=== PATIENT | female | born 1955 | race Caucasian/White ===

== ENCOUNTER 2017-06-27 08:39 | Inpatient (IN) ==
[2017-06-27 09:15] LABS: Bilirubin,Urine Negative (Negative); Blood,Urine Trace (Negative); Clarity,Urine Clear (Clear); Color,Urine Yellow (Yellow); Glucose,Urine (UA) Normal (Normal); Ketones,Urine Negative (Negative); Leukocyte Esterase,Urine Negative (Negative); Nitrite,Urine Negative (Negative); PH,Urine 6.5 pH Units (5.0-8.0); Protein,Urine Negative (Neg-Trace); Specific Gravity,Urine 1.009 (1.010-1.025); Urobilinogen,Urine Normal (Normal)
[2017-06-27 09:17] LABS: Bacteria,Urine None Seen per hpf (None-Few); Hyaline Casts,Urine None Seen per lpf (None-Few); Squamous Epithelial Cell,Urine Many per lpf (None-Few); WBC,Urine 0-3 per hpf (0-3)
[2017-06-27] MEDS ORDERED: *HR* Morphine 2 MG/ML SYRINGE IVP ONE (09:17)
[2017-06-27] MEDS ORDERED: 0.9 % Sodium Chloride 1,000 ML IVC ONE (09:17)
[2017-06-27] MEDS ORDERED: Ondansetron 4 MG/2 ML VIAL IVP ONE (09:17)
[2017-06-27 09:20] LABS: Red Cell Distribution Width 13.4 % (11.5-14.5)
[2017-06-27 09:22] LABS: Basophils # 0.1 K/mcL (0.0-0.2); Eosinophils # 0.1 K/mcL (0.0-0.6); Eosinophils % 1.5 %; Hematocrit 46.1 % (35.3-44.9); Hemoglobin 15.4 g/dL (11.5-15.4); Immature Granulocytes % 0.3 % (0-4); Immature Platelets 8.4 % (1.1-6.1); Lymphocytes % 25.7 %; Mean Corpuscular HGB Conc 33.4 g/dL (31.6-35.5); Mean Corpuscular Hemoglobin 31.8 pg (28.0-33.3); Mean Corpuscular Volume 95.2 fL (83.0-100.0); Mean Platelet Volume 11.5 fL (9.4-12.4); Monocytes # 0.5 K/mcL (0.0-1.3); Monocytes % 8.1 %; Neutrophils # 3.8 K/mcL (1.6-8.9); Red Blood Count 4.84 M/mcL (3.82-4.97); Segmented Neutrophils % 63.4 %
[2017-06-27 09:26] LABS: Lymphocytes # 1.5 K/mcL (0.6-4.6); Platelet Count 83 K/mcL (140-400)
--- NOTE | 2017-06-27 09:32 | Emergency Department Note ---
Disposition Clinical Impression: Acute diverticulitis, Transaminitis Cholelithiasis Qualifiers: Cholelithiasis location: gallbladder Cholecystitis presence: without cholecystitis Biliary obstruction: without biliary obstruction Qualified Code(s) : K80.20 - Calculus of gallbladder without cholecystitis without obstruction Disposition: Admitted As Inpatient Condition: Good Abdominal Pain HPI - General Chief Complaint: ED Abdominal Pain Stated Complaint: ABD Pain Time Seen by Provider: 06/27/17 09:04 Source: patient Mode of arrival: private vehicle Limitations: no limitations Nursing Notes Reviewed: Yes Vital Signs Reviewed: Yes - History of Present Illness HPI Narrative: 62-year-old female reported history of prior diverticulitis who presents to the ER with a chief complaint of abdominal pain. Patient states she has had crampy abdominal pain for 2 weeks. Reports a prior history of this in the past. Reports nausea at home without vomiting or diarrhea. She does report a change in stool pattern with more mucus. States she did notice a little amount of blood this morning but was unable to tell for if it was light or dark. She has had a car history of hysterectomy without any other abdominal surgeries. No other complaints. Pt Subjective Complaint: abdominal pain Onset (ago): week(s) Consistency: constant Location: diffuse Pain Severity: severe Pain Scale: 10 Quality: cramping Radiation: none Migration to: no migration Improves with: nothing Worsens with: nothing Context: history of similar episodes Associated symptoms: Reports: nausea. Denies: vomiting, diarrhea, fever, dysuria, hematuria Treatments prior to arrival: none - Related Data Home Medications Medication Instructions Recorded Confirmed Diltiazem CD (24hr) [Cardizem CD] 180 mg PO DAILY 06/27/17 06/27/17 Famotidine [Pepcid] 40 mg PO DAILY 06/27/17 06/27/17 Allergies Allergy/AdvReac Type Severity Reaction Status Date / Time niacin Allergy Flushing Verified 06/27/17 09:25 Penicillins [PCN] Allergy Rash Verified 06/27/17 09:25 duracef Allergy See Uncoded 06/27/17 09:25 Comments All systems ED: reviewed and negative except as stated. Constitutional: Denies: fever Gastrointestinal: Reports: abdominal pain, nausea. Denies: vomiting, diarrhea Genitourinary: Denies: dysuria, hematuria Abdominal Pain PMH - Past Medical History Medical history: Reports: no medical history, hyperlipidemia, hypertension Female Surgical History: Reports: other Psychiatric history: Reports: depression - Social History Smoking status: Current every day smoker Alcohol use: Reports: none Drug use: Reports: none Physical Exam - General Limitations: no limitations General appearance: alert, in no apparent distress - Head Head exam: atraumatic, normocephalic - Eye Eye exam: Present: normal appearance - ENT ENT exam: normal exam - Neck Neck exam: Present: normal inspection - Chest Chest inspection: Present: normal inspection, symmetric chest wall rise - Respiratory Respiratory exam: Present: normal lung sounds bilaterally - Cardiovascular Cardiovascular exam: Present: regular rate, normal rhythm, normal heart sounds - Abdominal Exam Abdominal exam: Present: soft, tenderness (Moderate diffuse tenderness to palpation). Absent: distention, rigidity - Extremities Exam Extremities exam: Present: normal inspection, full ROM - Expanded Upper Extremity Exam Shoulder exam: Present: normal inspection, full ROM Arm exam: Present: normal inspection, full ROM Elbow exam: Present: normal inspection, full ROM Forearm/Wrist exam: Present: normal inspection, full ROM Hand exam: Present: normal inspection, full ROM - Expanded Lower Extremity Exam Hip/Pelvis exam: Present: normal inspection, full ROM Upper leg exam: Present: normal inspection, full ROM Knee exam: Present: normal inspection, full ROM Lower leg exam: Present: normal inspection, full ROM Ankle exam: Present: normal inspection, full ROM Foot/toe exam: Present: normal inspection, full ROM - Skin Skin exam: Present: warm Course Course Narrative: Patient seen and examined. We will obtain a CT scan of the abdomen and pelvis as well as labs and urinalysis. Patient given IV fluids, morphine and Zofran. - Reevaluation(s) Reevaluation #1: Discussed results of CT scan with the patient as well as family present. There is concern for her gallbladder. We will obtain a gallbladder ultrasound. Reevaluation #2: Discussed findings on ultrasound with the patient. Agreeable with staying in the hospital. - Consultations Consultation #1: I spoke with the on-call general surgeon Dr. Frazier. Discussed the patient's history, exam, imaging and labs. Agreeable to the patient consultation. Vital Signs Temperature 97.5 F L 06/27/17 08:40 Pulse Rate 79 06/27/17 08:40 Respiratory Rate 18 06/27/17 08:40 Blood Pressure 171/101 06/27/17 08:40 O2 Sat by Pulse Oximetry 99 06/27/17 08:40 Temperature 97.5 F L 06/27/17 08:40 Pulse Rate 56 06/27/17 13:00 Respiratory Rate 20 06/27/17 13:00 Blood Pressure 142/75 06/27/17 13:00 O2 Sat by Pulse Oximetry 97 06/27/17 13:00 Oxygen Delivery Oxygen Delivery Room Air Abdominal Pain - MDM Narrative Medical decision making narrative: This documentation is done with the assistance of Dragon dictation. There may be inaccuracies in wax ball molder or spelling and typographical errors. I examined this patient and my medical decision-making was reviewed with the Resident Physician. I agree with the documented findings, disposition and treatment plan as described except to the extent set forth below. I saw this patient with Dr. Decker and I agree with his evaluation and management plan, supervise care the patient's stay. Patient presents today with abdominal pain across the upper portion abdomen she thinks it could be her colitis she has had varying types of bowel movements and a little bit nauseous. She said food makes it worse. She is pretty poor historian. She has nonsurgical exam on here. Relatively make her more comfortable then reassess. She is in agreement with plan. 1040 hrs.: Patient's LFTs are elevated. She says she has a history of hepatitis C the last 2 times she spent her LFTs of an elevated at a level was higher than they are today. Waiting on CAT scan and then reassessment. Abdomen/Pelvis CT 06/27/17 09:16 IMPRESSION: 1. Uncomplicated acute diverticulitis of the distal descending/proximal sigmoid colon. 2. Nodular contour of the liver, suggestive of cirrhosis. 3. Cholelithiasis with diffuse gallbladder wall thickening, possibly related to underlying liver disease. 4. Status post hysterectomy. 5. Normal appendix. D/ / 06/27/2017 10:33:16 Aimee Norman MD / [facility] Inter[facility] Provider: Aimee Norman MD Abdomen/Pelvis CT 06/27/17 09:16 IMPRESSION: 1. Uncomplicated acute diverticulitis of the distal descending/proximal sigmoid colon. 2. Nodular contour of the liver, suggestive of cirrhosis. 3. Cholelithiasis with diffuse gallbladder wall thickening, possibly related to underlying liver disease. 4. Status post hysterectomy. 5. Normal appendix. D/ / 06/27/2017 10:33:16 Aimee Norman MD / [facility] Interpreting Provider: Aimee Norman MD Gallbladder Ultrasound 06/27/17 11:12 IMPRESSION: Cholelithiasis, gallbladder wall thickening, suggestive of mild pericholecystic fluid. Given negative sonographic Dougherty's sign (which is only of diagnostic utility under the presumption that the patient has not received recent pain medications), these findings are equivocal for acute cholecystitis. Borderline enlarged common bile duct caliber, recommend correlation with LFTs. If there is persistent clinical concern for obstructive biliary pathology, MRCP can be considered for further evaluation, potentially on a nonemergent basis. D/ / 06/27/2017 12:32:14 Aguilar Falk MD / [facility] Interpreting Provider: Aguilar Falk MD 1244 hrs.: Patient's also got evidence of cholecystitis or with her diverticulitis. Reporting her on antibiotics. Admit her to medicine with surgery consult. - Lab Data Lab results reviewed: Yes I reviewed the patient's lab results. Result diagrams: 06/27/17 09:12 06/27/17 09:12 Lab Results 06/27/17 06/27/17 06/27/17 Range/Units 08:41 09:12 09:12 WBC 6.0 (4.3-11.1) K/mcL RBC 4.84 (3.82-4.97) M/mcL Hgb 15.4 (11.5-15.4) g/dL Hct 46.1 H (35.3-44.9) % MCV 95.2 (83.0-100.0) fL MCH 31.8 (28.0-33.3) pg MCHC 33.4 (31.6-35.5) g/dL RDW 13.4 (11.5-14.5) % Plt Count 83 L (140-400) K/mcL MPV 11.5 (9.4-12.4) fL Immature Gran % 0.3 (0-4) % Seg Neutrophils % 63.4 % Lymphocytes % 25.7 % Monocytes % 8.1 % Eosinophils % 1.5 % Basophils % 1.0 % Neutrophils # 3.8 (1.6-8.9) K/mcL Lymphocytes # 1.5 (0.6-4.6) K/mcL Monocytes # 0.5 (0.0-1.3) K/mcL Eosinophils # 0.1 (0.0-0.6) K/mcL Basophils # 0.1 (0.0-0.2) K/mcL Immature Plt Fraction 8.4 H (1.1-6.1) % Sodium 137 (136-145) mEq/L Potassium 3.6 (3.5-5.1) mEq/L Chloride 106 (98-107) mEq/L Carbon Dioxide 28 (23-29) mEq/L BUN 8 (8-23) mg/dL Creatinine 0.79 (0.60-1.20) mg/dL Est GFR ( Amer) > 60 (> 60) Est GFR (Non-Af Amer) > 60 (> 60) BUN/Creatinine Ratio 10 (6-26) Glucose 93 (70-105) mg/dL Calculated Osmolality 282 (280-300) Calcium 9.6 (8.6-10.3) mg/dL Total Bilirubin 1.2 H (0.3-1.0) mg/dL Direct Bilirubin 0.4 H (0.0-0.2) mg/dL Indirect Bilirubin 0.8 (0.0-1.2) mg/dL AST 240 H (13-39) Units/L ALT 240 H (7-52) Units/L Alkaline Phosphatase 201 H (34-104) Units/L Serum Total Protein 7.6 (6.4-8.9) g/dL Albumin 3.6 (3.5-5.7) g/dL Globulin 4.0 H (2.4-3.5) g/dL Albumin/Globulin Ratio 0.9 L (1.1-2.2) Lipase 23 (11-82) Units/L Urine Color Yellow (Yellow) Urine Clarity Clear (Clear) Urine pH 6.5 (5.0-8.0) pH Units Ur Specific [place] 1.009 L (1.010-1.025) Urine Protein Negative (Neg-Trace) mg/dL Urine Glucose (UA) Normal (Normal) mg/dL Urine Ketones Negative (Negative) mg/dL Urine Blood Trace H (Negative) Urine Nitrite Negative (Negative) Urine Bilirubin Negative (Negative) Urine Urobilinogen Normal (Normal) mg/dL Ur Leukocyte Esterase Negative (Negative) Urine Microscopic RBC 3-5 H (0-3) per hpf Urine Microscopic WBC 0-3 (0-3) per hpf Ur Squamous Epith Cells Many H (None-Few) per lpf Urine Bacteria None Seen (None-Few) per hpf Hyaline Casts None Seen (None-Few) per lpf Ur Culture Indicated? NO (NO) - Radiology Data Radiology results reviewed: Yes I reviewed the patient's radiology results. Abdomen/Pelvis CT 06/27/17 09:16 IMPRESSION: 1. Uncomplicated acute diverticulitis of the distal descending/proximal sigmoid colon. 2. Nodular contour of the liver, suggestive of cirrhosis. 3. Cholelithiasis with diffuse gallbladder wall thickening, possibly related to underlying liver disease. 4. Status post hysterectomy. 5. Normal appendix. D/ / 06/27/2017 10:33:16 Aimee Norman MD / [facility] Interpreting Provider: Aimee Norman MD Gallbladder Ultrasound 06/27/17 11:12 IMPRESSION: Cholelithiasis, gallbladder wall thickening, suggestive of mild pericholecystic fluid. Given negative sonographic Dougherty's sign (which is only of diagnostic utility under the presumption that the patient has not received recent pain medications), these findings are equivocal for acute cholecystitis. Borderline enlarged common bile duct caliber, recommend correlation with LFTs. If there is persistent clinical concern for obstructive biliary pathology, MRCP can be considered for further evaluation, potentially on a nonemergent basis. D/ / 06/27/2017 12:32:14 Aguilar Falk MD / [facility] Interpreting Provider: Aguilar Falk MD S[facility]A.R. - [facility] Situation: Demographics, MOA Background: Presenting Complaint, Relevant PMH, Meds, & Allergies Assessment: Course and respsone to treatment, Patient/Family Expectation, Pertinant Lab Results Recommendation: Barrier(s) to disposition, Recommendation based on pending studies, treatments, or consults S.B.A.R. Report Given to: Dr. Love
[2017-06-27 09:35] LABS: Alanine Aminotransferase 240 Units/L (7-52); Albumin 3.6 g/dL (3.5-5.7); Albumin/Globulin Ratio 0.9 (1.1-2.2); Alkaline Phosphatase 201 Units/L (34-104); Aspartate Amino Transferase 240 Units/L (13-39); BUN/Creatinine Ratio 10 (6-26); Bilirubin,Direct 0.4 mg/dL (0.0-0.2); Bilirubin,Indirect 0.8 mg/dL (0.0-1.2); Bilirubin,Total 1.2 mg/dL (0.3-1.0); Blood Urea Nitrogen 8 mg/dL (8-23); Calcium 9.6 mg/dL (8.6-10.3); Carbon Dioxide 28 mEq/L (23-29); Chloride 106 mEq/L (98-107); Glucose 93 mg/dL (70-105); Lipase 23 Units/L (11-82); Osmolality,Calculated 282 (280-300); Potassium 3.6 mEq/L (3.5-5.1); Sodium 137 mEq/L (136-145); Total Protein 7.6 g/dL (6.4-8.9); eGFR For African Americans > 60 (> 60); eGFR For Non-African Americans > 60 (> 60)
[2017-06-27] MEDS ORDERED: MetroNIDAZOLE 500 MG/100 ML 500 MG/100 ML BAG IVPB ONE (11:55)
[2017-06-27] MEDS ORDERED: Levofloxacin 750 MG/150 ML 750 MG/150 ML BAG IVPB ONE (11:55)
--- NOTE | 2017-06-27 13:38 | General Surgery Consult Note ---
<Juliette Burkett - Last Filed: 06/27/17 16:28> Date of Encounter: 06/27/17 Time of Encounter: 13:36 Assessment and Plan (1) Cholelithiasis Current Visit: Yes Status: Acute 62 y F with diverticulitis presenting with acute epigastric pain, consistent with typical biliary symptoms and gallstones identified on imaging studies, but equivocal transabdominal U/S findings for complications. Pt hemodynamically stable, afebrile -Reviewed Transabdominal U/S and CT report, with Elevation in AST/ALT, will plan for MRCP to r/o obstructive biliary pathology -Focus management acute pain control. -Bowel rest -Will review plan with Dr. Frazier Qualifiers: Cholelithiasis location: gallbladder Cholecystitis presence: without cholecystitis Biliary obstruction: without biliary obstruction Qualified Code(s): K80.20 - Calculus of gallbladder without cholecystitis without obstruction (2) Diverticulitis Current Visit: Yes Status: Acute Abdomen CT demonstrated Uncomplicated acute diverticulitis of the distal descending/proximal sigmoid colon, with diverticulosis seen elsewhere. CT possibly concerning for Hinchey Class I. Pt considered immunocompromised 2/2 to chronic hepatitis C Combination regiment of metronidazole 500 mg IV q 8 hours with ciprofloxacin 400 mg IV every 12 hours or Continue bowel rest (3) Transaminitis Current Visit: Yes Status: Chronic 03/2017 AST/ALT 330: 400. 06/27/17 AST/ALT: 240/240. Continue to monitor and correlate with clinical status and may be 2/2 to chronic hepatitis C status. Elevation seen in chronic hepatitis C virus infection known to be associated with wide variability in AST/ALT levels. Elevation also possibly concerning for biliary obstruction, MRCP pending to r/o (4) Hepatitis C Current Visit: Yes Status: Chronic Chronic Hep C, Chronic inactive Hep B. Follows with GI Dr. Gavin as outpatient. Cirrhosis seen on imaging, pt endorses alcohol use as well. Qualifiers: Viral hepatitis chronicity: chronic Hepatic coma status: without hepatic coma Qualified Code(s): B18.2 - Chronic viral hepatitis C (5) Tobacco abuse Current Visit: Yes Status: Acute Management per medical team (6) DVT prophylaxis Current Visit: Yes Status: Acute Management per medical team. History of Present Illness Consult date: 06/27/17 Reason for consult: abdominal pain Requesting physician: Peter Brigido History of present illness: 62-year-old female reported history of prior diverticulitis and past surgical history of hysterectomy, presents to the ER with a chief complaint of crampy abdominal pain x 2 weeks. Location: Epigastric region. Qualification: Rates pain as 8/10. Timing of pain: Post-prandial pain. Associated symptoms: Nausea. No vomiting. No diarrhea. Endorses a change in stool pattern, with increased mucus noted. Endorses bloody bowel movements yesterday, which resolves this morning. No chest pain. No bloating.No diaphoresis. Past Med Surg Social Fam HX - Past Medical History Attestation: Yes The following information was validated with the patient. Source: old records reviewed (Hx of Diverticulitis, Depression, hx of CVA (2003) , HTN, CVA, DDD, Hx of breast nodules, RLS, COPD, GERD, Chronic back pain, Hyperlipidemia, HTN (hypertension), History of CVA (cerebrovascular accident), Cardiac carh in 2016 normal coronaries, Chronic Active Hepatitis C 05/2017, Chronic INACTIVE Hepatitis B) Medical history: hyperlipidemia, hypertension Psychiatric history: depression - Past Surgical History Surgical History: other ( total hysterectomy 1978, back surgery 2003, bunion surgery 2003, EGD/colonoscopy 2010, dental surgery (all teeth removed) [id number] , left heart catheterization , right eye cataract surgery 2010, left eye cataract surgery 2011) - Social History Smoking Status: Current every day smoker Smokeless Tobacco Status: No Alcohol use: recent (endorses 1-3 beers/day) Drug use: none - Family History Father Hx Family Cardiac Disorders: Yes - Additional Family History Additional family history: History per outpatient medical chart. Father: , RA, heart disease, lung disease, alcoholism, diagnosed with Heart Disease. Mother: , brain aneurysm, HTN, alcohol abuse, diagnosed with Hypertension, Stroke. Brother(s): alive. Daughter(s): depression, PTSD Medications and Allergies Diltiazem CD (24hr) [Cardizem CD] 180 mg PO DAILY 06/27/17 [History] Famotidine [Pepcid] 40 mg PO DAILY 06/27/17 [History] 3 Allergy/AdvReac Type Severity Reaction Status Date / Time niacin Allergy Flushing Verified 06/27/17 09:25 Penicillins [PCN] Allergy Rash Verified 01/15/18 09:25 duracef Allergy See Uncoded 06/27/17 09:25 Comments Review of Systems All systems PM: A review of systems was performed and is negative for pertinent findings except as documented above in the HPI. General Surgery Exam Initial Vital Signs Temp Pulse Resp BP Pulse Ox 97.5 F L 79 18 171/101 99 06/27/17 08:40 06/27/17 08:40 06/27/17 08:40 06/27/17 08:40 06/27/17 08:40 - General physical appearance no distress, cachectic - Eyes normal ocular movement. negative: icteric - Respiratory normal expansion, normal respiratory effort, clear to auscultation - Cardiovascular Cardiovascular exam: Present: RRR, murmurs - Abdomen Abdomen general surgery: Present: bowel sounds present, soft, non tender (No abdominal tenderness on palpation in all quadrants, while patient distracted in conversation. Negative Dougherty's sign.). Absent: distended, rebound, rigid - Integumentary Integumentary general surgery: Present: warm and dry, no abnormal pigmentation - Neurologic Present: normal coordination, other (Absent: Asterixis). Absent: combative, confused - Musculoskeletal Present: other (No LE edema. ) - Psychiatric Psychiatric general surgery: Present: oriented to person, oriented to place, speech is normal, other Exam Initial Vital Signs Temp Pulse Resp BP Pulse Ox 97.5 F L 79 18 171/101 99 06/27/17 08:40 06/27/17 08:40 06/27/17 08:40 06/27/17 08:40 06/27/17 08:40 Results - Labs 06/27/17 09:12 06/27/17 09:12 Abnormal lab results Hct 46.1 % (35.3-44.9) H 06/27/17 09:12 Plt Count 83 K/mcL (140-400) L 06/27/17 09:12 Immature Plt Fraction 8.4 % (1.1-6.1) H 06/27/17 09:12 Total Bilirubin 1.2 mg/dL (0.3-1.0) H 06/27/17 09:12 Direct Bilirubin 0.4 mg/dL (0.0-0.2) H 06/27/17 09:12 AST 240 Units/L (13-39) H 06/27/17 09:12 ALT 240 Units/L (7-52) H 06/27/17 09:12 Alkaline Phosphatase 201 Units/L (34-104) H 06/27/17 09:12 Globulin 4.0 g/dL (2.4-3.5) H 06/27/17 09:12 Albumin/Globulin Ratio 0.9 (1.1-2.2) L 06/27/17 09:12 Ur Specific [place] 1.009 (1.010-1.025) L 06/27/17 08:41 Urine Blood Trace (Negative) H 06/27/17 08:41 Urine Microscopic RBC 3-5 per hpf (0-3) H 06/27/17 08:41 Ur Squamous Epith Cells Many per lpf (None-Few) H 06/27/17 08:41 Diabetes panel 06/27/17 Range/Units 09:12 Sodium 137 (136-145) mEq/L Potassium 3.6 (3.5-5.1) mEq/L Chloride 106 (98-107) mEq/L Carbon Dioxide 28 (23-29) mEq/L BUN 8 (8-23) mg/dL Creatinine 0.79 (0.60-1.20) mg/dL Glucose 93 (70-105) mg/dL Calcium 9.6 (8.6-10.3) mg/dL AST 240 H (13-39) Units/L ALT 240 H (7-52) Units/L Alkaline Phosphatase 201 H (34-104) Units/L Albumin 3.6 (3.5-5.7) g/dL Calcium panel 06/27/17 Range/Units 09:12 Calcium 9.6 (8.6-10.3) mg/dL Albumin 3.6 (3.5-5.7) g/dL Pituitary panel 06/27/17 Range/Units 09:12 Sodium 137 (136-145) mEq/L Potassium 3.6 (3.5-5.1) mEq/L Chloride 106 (98-107) mEq/L Carbon Dioxide 28 (23-29) mEq/L BUN 8 (8-23) mg/dL Creatinine 0.79 (0.60-1.20) mg/dL Glucose 93 (70-105) mg/dL Calcium 9.6 (8.6-10.3) mg/dL Adrenal panel 06/27/17 Range/Units 09:12 Sodium 137 (136-145) mEq/L Potassium 3.6 (3.5-5.1) mEq/L Chloride 106 (98-107) mEq/L Carbon Dioxide 28 (23-29) mEq/L BUN 8 (8-23) mg/dL Creatinine 0.79 (0.60-1.20) mg/dL Glucose 93 (70-105) mg/dL Calcium 9.6 (8.6-10.3) mg/dL Total Bilirubin 1.2 H (0.3-1.0) mg/dL AST 240 H (13-39) Units/L ALT 240 H (7-52) Units/L Alkaline Phosphatase 201 H (34-104) Units/L Albumin 3.6 (3.5-5.7) g/dL All other labs normal. - Imaging CT scan - abdomen: report reviewed (CT OF THE ABDOMEN AND PELVIS WITHOUT CONTRAST 06/27/2017 10:12 am TECHNIQUE: CT of the abdomen and pelvis was performed without the administration of intravenous contrast. Multiplanar reformatted images are provided for review. Dose modulation, iterative reconstruction, and/or weight based adjustment of the mA/kV was utilized to reduce the radiation dose to as low as reasonably achievable. COMPARISON: None. HISTORY: ORDERING SYSTEM PROVIDED HISTORY: generalized abd pain, hx of diverticulitis FINDINGS: Lower Chest: Basilar atelectasis. Organs: Cholelithiasis without CT evidence of acute cholecystitis. Wall thickening of the gallbladder is identified, nonspecific. Subtle nodular contour of the liver is identified. No obvious mass lesion on noncontrast imaging. The spleen is at the upper limits of normal in size, measuring 12.4 cm in craniocaudal dimension. The pancreas, adrenal glands, and kidneys demonstrate no acute abnormality. A 13 mm left renal cyst is identified. No hydronephrosis or nephrolithiasis. GI/Bowel: The stomach and small bowel are normal in course and caliber without evidence of wall thickening or obstruction. Normal appendix. Focal area of wall thickening with adjacent inflammatory changes is identified in the distal descending/ proximal sigmoid colon. Severe diverticulosis is identified elsewhere. Pelvis: Normal bladder. Status post hysterectomy. No adnexal masses. Peritoneum/Retroperitoneum: Inflammatory changes with trace free fluid identified in the left hemiabdomen and pelvis related to diverticulitis of the distal descending colon. No free air. No pathologic lymphadenopathy. The aorta and its branches are normal in course and caliber with mild atherosclerosis. Bones/Soft Tissues: No acute or aggressive osseous lesion. CT/CT abd pelvis wo no iv no oral IMPRESSION: 1. Uncomplicated acute diverticulitis of the distal descending/ proximal sigmoid colon. 2. Nodular contour of the liver, suggestive of cirrhosis. 3. Cholelithiasis with diffuse gallbladder wall thickening, possibly related to underlying liver disease. 4. Status post hysterectomy. 5. Normal appendix. D/ / 06/27/2017 10:33:16 Aimee Norman MD / earиван Interpreting Provider: Aimee Norman MD ) US - abdomen: report reviewed (EXAMINATION: RIGHT UPPER QUADRANT ULTRASOUND, 12:08 PM COMPARISON: CT of the abdomen and pelvis from 06/27/2017. HISTORY: ORDERING SYSTEM PROVIDED HISTORY: RUQ pain, elevated LFTs FINDINGS: LIVER: The liver demonstrates normal echogenicity without evidence of intrahepatic biliary ductal dilatation. BILIARY SYSTEM: Gallbladder wall thickening measuring 0.6 cm. There is suggestion of mild pericholecystic fluid. Cholelithiasis. Sonographic Dougherty's sign is negative. Common bile duct is borderline enlarged measuring 0.6 cm in greatest diameter. RIGHT KIDNEY : The right kidney is grossly unremarkable without evidence of hydronephrosis. PANCREAS: Visualized portions of the pancreas are unremarkable. OTHER: No evidence of right upper quadrant ascites. US/US gall bladder IMPRESSION: Cholelithiasis, gallbladder wall thickening, suggestive of mild pericholecystic fluid. Given negative sonographic Dougherty's sign (which is only of diagnostic utility under the presumption that the patient has not received recent pain medications), these findings are equivocal for acute cholecystitis. Borderline enlarged common bile duct caliber, recommend correlation with LFTs. If there is persistent clinical concern for obstructive biliary pathology, MRCP can be considered for further evaluation, potentially on a nonemergent basis. D/ / 06/27/2017 12:32:14 Aguilar Falk MD / jojo Interpreting Provider: Aguilar Falk MD) Consult Discharge Plan - Plan Referrals: Ghanshyam Taylor [Primary Care Provider] - <Rafita Frazier - Last Filed: 06/27/17 19:49> Date of Encounter: 06/27/17 Review of Systems All systems PM: A 10-system review of systems was performed and is negative for pertinent findings except as documented above in the HPI. General Surgery Exam Initial Vital Signs Temp Pulse Resp BP Pulse Ox 97.5 F L 79 18 171/101 99 06/27/17 08:40 06/27/17 08:40 06/27/17 08:40 06/27/17 08:40 06/27/17 08:40 Exam Initial Vital Signs Temp Pulse Resp BP Pulse Ox 97.5 F L 79 18 171/101 99 06/27/17 08:40 06/27/17 08:40 06/27/17 08:40 06/27/17 08:40 06/27/17 08:40 Results - Labs 06/27/17 09:12 06/27/17 09:12 Abnormal lab results Hct 46.1 % (35.3-44.9) H 06/27/17 09:12 Plt Count 83 K/mcL (140-400) L 06/27/17 09:12 Immature Plt Fraction 8.4 % (1.1-6.1) H 06/27/17 09:12 Total Bilirubin 1.2 mg/dL (0.3-1.0) H 06/27/17 09:12 Direct Bilirubin 0.4 mg/dL (0.0-0.2) H 06/27/17 09:12 AST 240 Units/L (13-39) H 06/27/17 09:12 ALT 240 Units/L (7-52) H 06/27/17 09:12 Alkaline Phosphatase 201 Units/L (34-104) H 06/27/17 09:12 Globulin 4.0 g/dL (2.4-3.5) H 06/27/17 09:12 Albumin/Globulin Ratio 0.9 (1.1-2.2) L 06/27/17 09:12 Ur Specific [place] 1.009 (1.010-1.025) L 06/27/17 08:41 Urine Blood Trace (Negative) H 06/27/17 08:41 Urine Microscopic RBC 3-5 per hpf (0-3) H 06/27/17 08:41 Ur Squamous Epith Cells Many per lpf (None-Few) H 06/27/17 08:41 All other labs normal. - Attending Attestation I have personally seen and examined the patient. I have reviewed pertinent labs , imaging, progress notes, including this one. I agree with the above assessment and plan and wish to include the following... 62F h/p hep c (no reported or documented cirrhosis) GERD, CVA, HTN, COPD, prior episodes of diverticulitis (at least two pior) with 2 weeks of worsening abdominal pain, poor PO intake who presents with another episode of diverticulitis; Patient does have a history of a prior c-scopy and EGD and was told that their were no findings of concern. She is tender on exam, primarily along suprapubic region; non peritooneal on exam; she does have a leukocytosis with a concern for inflammation of gallbladder. She has expressed to me that she has had multiple episodes of this type of pain (speaking about her diverticulitis) and wishes to be finished with this disease this admission. I did explain the usual work up and steps and that we can change the usual process in the case of a patient who wishes to have surgery or if a patient is acute. I did explain that surgery during acute inflammation is not the norm, especially for hinchey class I diverticulitis, but, if we did, she should expect to get an ostomy, likely an ileostomy. In addition I explained the life changes that come with an ileostomy. And, although the intent would be for reversal in the future, she would look at at least 2.5 months with this ileostomy. She expressed that she is okay with an ileostomy. I told her that I can accommodate her, but I would revisit the conversation in the morning and see if she still feels the same. If she does I will talk to her more about the procedure and try to set up a time this week. In the meantime, she will need preoperative risk stratification by the hospitalist and/or surgeon/president. okay with diet in the meantime
[2017-06-27] MEDS ORDERED: Acetaminophen 325 MG TABLET PO PRN (14:38)
[2017-06-27] MEDS ORDERED: Naloxone 0.4 MG/ML INJ IVP PRN (14:38)
[2017-06-27] MEDS ORDERED: Ondansetron 4 MG/2 ML VIAL IVP PRN (14:38)
--- NOTE | 2017-06-27 14:47 | Internal Med History&Physical ---
<Layo Oviedo - Last Filed: 06/27/17 14:45> Date of Encounter: 06/27/17 Time of Encounter: 14:45 Assessment and Plan (1) Cholelithiasis Current visit: Yes Status: Acute Presents with sharp 8/10 right upper quadrant epigastric pain, transaminitis, elevations in total bilirubin and direct bilirubin. His initially complained of nausea without vomiting. Positive Dougherty's sign to palpation. CT scan of abdomen reveals cholelithiasis with diffuse gallbladder wall thickening. G.US 6mm dilitation of DBD and 6mm wall thickening with mild pericholecystic fluid. Per ASGE risk stratification, 6mm CBD dilatation, transaminitis and total bili elevations places her at high risk for cholecocholithiasis -MRCP to r/o obstruction -Consult to surgery- Dr Frazier called and has agreed to see the patient; awaiting further recommendations -bowel rest -pain management with Hydrocodone and Morphine -antiemetics -CBCD, CMP in the am -IVF 0.9% NS at 100ml/hr Qualifiers: Cholelithiasis location: gallbladder Cholecystitis presence: without cholecystitis Biliary obstruction: without biliary obstruction Qualified Code(s): K80.20 - Calculus of gallbladder without cholecystitis without obstruction (2) Acute diverticulitis Current visit: Yes Status: Acute Patient is a history of diverticulitis. Presents today with acute abdominal pain, CT abdomen and pelvis reveals uncomplicated acute diverticulitis. The patient is immunocompromised secondary to hepatitis C -Remain nothing by mouth for bowel rest -Continue ATB with ciprofloxacin and metronidazole (3) Transaminitis Current visit: Yes Status: Acute Transaminitis correlates with the patient's clinical presentation. Continue to trend. See plan above (4) Hepatitis C Current visit: Yes Status: Chronic Qualifiers: Viral hepatitis chronicity: chronic Hepatic coma status: without hepatic coma Qualified Code(s): B18.2 - Chronic viral hepatitis C (5) Tobacco abuse Current visit: Yes Status: Acute Discussed smoking cessation. (6) DVT prophylaxis Current visit: Yes Status: Acute EPCD's Internal Medicine - H&P: HPI Chief complaint: CRAMPY ABDOMINAL PAIN, NAUSEA, ACUTE DIVERTICULITIS Admitted From: Home Plans for Post Hospital Care: Home History of present illness: Ms. Jessica is a 62 year old female with a PMH of hepatitis C, HLD, HTN. She presents to the ER today with chief complaint of crampy gastric abdominal pain that has been ongoing for approximately 2 weeks. She says the pain is severe and rates it 8/10. She reports that the pain is worse after eating. She admits to nausea without vomiting or diarrhea. She does endorse a change in stool pattern and noticed an increased amount of mucus with each bowel movement. Additionally, she reports that a bloody bowel movement yesterday but his had no additional bloody bowel movements since. She denies any fever, chills, rigors, chest pain, shortness of breath. Past Med Surg Social Fam HX - Past Medical History Medical history: hyperlipidemia, hypertension Psychiatric history: depression - Past Surgical History Surgical History: other ( total hysterectomy 1978, back surgery 2003, bunion surgery 2003, EGD/colonoscopy 2010, dental surgery (all teeth removed) [id number] , left heart catheterization , right eye cataract surgery 2010, left eye cataract surgery 2011) - Social History Smoking Status: Current every day smoker Smokeless Tobacco Status: No Alcohol use: none Drug use: none - Additional Family History Additional family history: Noncontributory Internal Medicine - H&P: Meds Diltiazem CD (24hr) [Cardizem CD] 180 mg PO DAILY 06/27/17 [History] Famotidine [Pepcid] 40 mg PO DAILY 06/27/17 [History] 3 Allergy/AdvReac Type Severity Reaction Status Date / Time niacin Allergy Flushing Verified 06/27/17 09:25 Penicillins [PCN] Allergy Rash Verified 06/27/17 09:25 duracef Allergy See Uncoded 06/27/17 09:25 Comments All Systems PM: A 10-system review of systems was performed and is negative for pertinent findings except as documented above in the HPI. - Constitutional Constitutional: as per HPI - Cardiovascular Cardiovascular ROS IM: no chest pain, no diaphoresis, no dyspnea, no lightheadedness, no palpitations, no syncope - Respiratory Respiratory: no cough, no dyspnea, no wheezing, no excessive phlegm production - Gastrointestinal Gastrointestinal: as per HPI - Genitourinary Genitourinary: no change in urinary stream, no dysuria, no flank pain, no hematuria - Musculoskeletal Musculoskeletal ROS IM: no numbness, no tingling - Integumentary Integumentary IM: no rash, no unusual bruising - Neurological Neurological ROS: no confusion, no convulsions, no focal weakness, no numbness, no tingling, no tremor(s) - Hematologic/Lymphatic Hematologic/Lymphatic: no easy bruising - Constitutional Vitals: Temp Pulse Resp BP Pulse Ox 97.5 F L 56 20 147/125 97 06/27/17 08:40 06/27/17 13:00 06/27/17 14:15 06/27/17 14:15 06/27/17 13:00 General appearance: Present: cooperative, mild distress, A&O X 3, answers questions appropriately - Head Head exam: Present: atraumatic, normocephalic - Eye Eye exam: Present: PERRL, conjuntiva pink, sclera anicteric Pupils: Present: PERRL - Neck Neck exam general surgery: Present: supple, trachea midline. Absent: lymphadenopathy - Respiratory Respiratory exam: Present: CTAB. Absent: accessory muscle use, rales, rhonchi, wheezes - Cardiovascular Cardiovascular exam: Present: RRR, +S1, +S2. Absent: diastolic murmur, gallop, rubs, systolic murmur - GI/Abdominal GI/Abdominal exam: Present: normal bowel sounds, soft, no peritoneal signs. Absent: distended, tenderness - Extremities Exam Extremities exam: Present: warm, radial pulses palpable and symmetrical. Absent : calf tenderness, cyanotic, pedal edema - Neurological Exam Neurological exam: Present: alert, oriented X3. Absent: facial droop, speech deficit - Skin Skin exam: Present: dry, intact Internal Med - H&P Results - Labs CBC & Chem 7: 06/27/17 09:12 06/27/17 09:12 - Diagnostic Studies CT scan - abdomen Status: image reviewed by me Additional comments: 1. Uncomplicated acute diverticulitis of the distal descending/proximal sigmoid colon. 2. Nodular contour of the liver, suggestive of cirrhosis. 3. Cholelithiasis with diffuse gallbladder wall thickening, possibly related to underlying liver disease. 4. Status post hysterectomy. 5. Normal appendix. Other Images Status: image reviewed by me Additional comments: Cholelithiasis, gallbladder wall thickening, suggestive of mild pericholecystic fluid. Given negative sonographic Dougherty's sign (which is only of diagnostic utility under the presumption that the patient has not received recent pain medications), these findings are equivocal for acute cholecystitis. Borderline enlarged common bile duct caliber, recommend correlation with LFTs. If there is persistent clinical concern for obstructive biliary pathology, MRCP can be considered for further evaluation, potentially on a nonemergent basis. <Damián Love P - Last Filed: 06/28/17 06:43> Date of Encounter: 06/28/17 Internal Medicine - H&P: HPI History of present illness: Ms. Jessica is a 62 year old female Past Med Surg Social Fam HX - Family History Father Hx Family Cardiac Disorders: Yes All Systems PM: A 10-system review of systems was performed and is negative for pertinent findings except as documented above in the HPI. - Constitutional Vitals: Temp Pulse Resp BP Pulse Ox 98.3 F 65 16 114/65 93 06/28/17 03:58 06/28/17 03:58 06/28/17 03:58 06/28/17 03:58 06/28/17 03:58 Internal Med - H&P Results - Labs CBC & Chem 7: 06/28/17 05:02 06/28/17 05:02 Labs: Short CBC 06/28/17 Range/Units 05:02 WBC 4.8 (4.3-11.1) K/mcL Hgb 13.3 D (11.5-15.4) g/dL Hct 40.8 (35.3-44.9) % Plt Count 67 L (140-400) K/mcL Neutrophils # 2.9 (1.6-8.9) K/mcL BMP 06/28/17 05:02 Sodium 140 Potassium 3.8 Chloride 107 Carbon Dioxide 27 BUN 9 Creatinine 0.74 Glucose 86 Calcium 8.8 Liver Function 06/28/17 Range/Units 05:02 Total Bilirubin 1.6 H (0.3-1.0) mg/dL AST 165 H (13-39) Units/L ALT 170 H (7-52) Units/L Alkaline Phosphatase 155 H (34-104) Units/L Albumin 2.9 L (3.5-5.7) g/dL - Attending Attestation I examined this patient and my medical decision-making was reviewed with the Resident Physician/SUBMARINE ADVISORY TEAM WATCH OFFICER. I agree with the documented findings, disposition and treatment plan as described except to the extent set forth below.
[2017-06-27] MEDS: 0.9 % Sodium Chloride 1,000 ML IVC SCH ×2 (15:32→23:15)
[2017-06-27] MEDS: MetroNIDAZOLE 500 MG/100 ML 500 MG/100 ML BAG IVPB SCH ×2 (15:33→23:15)
[2017-06-27] MEDS: *HR* Morphine 2 MG/ML SYRINGE IVP PRN (15:33)
[2017-06-27] MEDS ORDERED: *HR* LORazepam 2 MG/ML VIAL IVP PRN ×3 (16:48)
[2017-06-27] MEDS ORDERED: *HR* Heparin 5,000 UNIT/ML VIAL SQ SCH (18:00)
[2017-06-28] MEDS: *HR* Morphine 2 MG/ML SYRINGE IVP PRN ×3 (01:09→17:20)
[2017-06-28 05:51] LABS: Immature Granulocytes % 0.2 % (0-4); Mean Corpuscular Volume 96.7 fL (83.0-100.0)
[2017-06-28 05:53] LABS: Basophils % 0.6 %; Eosinophils # 0.1 K/mcL (0.0-0.6); Eosinophils % 1.2 %; Hematocrit 40.8 % (35.3-44.9); Hemoglobin 13.3 g/dL (11.5-15.4); Lymphocytes # 1.3 K/mcL (0.6-4.6); Lymphocytes % 26.7 %; Mean Corpuscular HGB Conc 32.6 g/dL (31.6-35.5); Mean Corpuscular Hemoglobin 31.5 pg (28.0-33.3); Mean Platelet Volume 12.1 fL (9.4-12.4); Monocytes # 0.5 K/mcL (0.0-1.3); Monocytes % 10.4 %; Neutrophils # 2.9 K/mcL (1.6-8.9); Red Blood Count 4.22 M/mcL (3.82-4.97); Red Cell Distribution Width 13.2 % (11.5-14.5); Segmented Neutrophils % 60.9 %
[2017-06-28 05:54] LABS: Platelet Count 67 K/mcL (140-400)
[2017-06-28 06:13] LABS: Alanine Aminotransferase 170 Units/L (7-52); Albumin 2.9 g/dL (3.5-5.7); Albumin/Globulin Ratio 0.9 (1.1-2.2); Alkaline Phosphatase 155 Units/L (34-104); Aspartate Amino Transferase 165 Units/L (13-39); BUN/Creatinine Ratio 12 (6-26); Bilirubin,Total 1.6 mg/dL (0.3-1.0); Blood Urea Nitrogen 9 mg/dL (8-23); Calcium 8.8 mg/dL (8.6-10.3); Carbon Dioxide 27 mEq/L (23-29); Chloride 107 mEq/L (98-107); Globulin 3.1 g/dL (2.4-3.5); Glucose 86 mg/dL (70-105); Osmolality,Calculated 288 (280-300); Potassium 3.8 mEq/L (3.5-5.1); Sodium 140 mEq/L (136-145); eGFR For African Americans > 60 (> 60); eGFR For Non-African Americans > 60 (> 60)
[2017-06-28] MEDS: MetroNIDAZOLE 500 MG/100 ML 500 MG/100 ML BAG IVPB SCH ×3 (08:14→23:31)
[2017-06-28] MEDS: *HR* HYDROcodone/Acet 5/325 mg TABLET PO PRN (08:15)
[2017-06-28] MEDS: Diltiazem CD (24hr) 180 MG CAPSULE PO SCH (08:15)
[2017-06-28] MEDS: Famotidine 20 MG TABLET PO SCH (08:15)
--- NOTE | 2017-06-28 10:34 | General Surgery Progress Note ---
<Juliette Burkett - Last Filed: 06/28/17 10:30> Date of Encounter: 06/28/17 Time of Encounter: 10:30 - Assessment and Plan (1) Cholelithiasis Current Visit: Yes Status: Acute 62 y F with Hinchey Class I diverticulitis presenting with acute epigastric pain , consistent with typical biliary symptoms but equivocal transabdominal U/S findings for complications. -Continue management acute pain control -Bowel rest with IV hydration Qualifiers: Cholelithiasis location: gallbladder Cholecystitis presence: without cholecystitis Biliary obstruction: without biliary obstruction Qualified Code(s): K80.20 - Calculus of gallbladder without cholecystitis without obstruction (2) Diverticulitis Current Visit: Yes Status: Acute Abdomen CT demonstrated Uncomplicated acute diverticulitis of the distal descending/proximal sigmoid colon, with diverticulosis seen elsewhere. C Combination regiment of metronidazole 500 mg IV q 8 h with ciprofloxacin 400 mg IV q 12 hr Pain management with parenteral analgesics while NPO Continue bowel rest with IV hydration (3) Transaminitis Current Visit: Yes Status: Chronic 03/2017 AST/ALT 330: 400. 06/27/17 AST/ALT: 240/240. Downtrending. (4) Hepatitis C Current Visit: Yes Status: Chronic Chronic Hep C, Chronic inactive Hep B. Follows with GI Dr. Gavin as outpatient. Cirrhosis seen on imaging, pt endorses alcohol use as well. Qualifiers: Viral hepatitis chronicity: chronic Hepatic coma status: without hepatic coma Qualified Code(s): B18.2 - Chronic viral hepatitis C (5) Tobacco abuse Current Visit: Yes Status: Acute Management per medical team (6) DVT prophylaxis Current Visit: Yes Status: Acute Management per medical team. Subjective Patient reports: no new complaints, feels better, pain is less, afebrile Objective Vital Signs - Last 8 Hours Temp Pulse Resp BP Pulse Ox 06/28/17 07:10 97.9 F 58 16 118/68 94 06/28/17 03:58 98.3 F 65 16 114/65 93 Intake and Output 06/27/17 06/28/17 06/28/17 23:59 07:59 15:59 Intake Total 1000 / 1000 500 / 500 Output Total 200 / 200 Balance 800 / 800 500 / 500 Intake: IV Fluids 1000 / 1000 500 / 500 0.9 % Sodium Chloride 1,000 ML 1000 / 1000 @ 100 mls/hr IVC .Q10H [facility] Rx#: [id number] Cipro Premix 400 MG/200 ML 400 400 / 400 mg In 200 ml @ 200 mls/hr IVPB Q12HR [facility] Rx#:[id number] Flagyl Premix 500 MG/100 ML 500 100 / 100 mg In 100 ml @ 100 mls/hr IVPB Q8HR [facility] Rx#:[id number] Output: Urine 200 / 200 Other: Weight 51.256 kg Blood Glucose* 87 97 Patient Weight 06/28/17 23:59 Weight 51.256 kg - General physical appearance no distress - Eyes normal ocular movement - Respiratory normal expansion, normal respiratory effort, clear to auscultation - Cardiovascular Cardiovascular exam: Present: RRR, no murmurs/rubs/gallops - Abdomen Abdomen: Present: bowel sounds present, soft, non tender - Integumentary no abnormal pigmentation - Neurologic normal coordination - Psychiatric oriented to time, oriented to person, oriented to place, speech is normal - Labs 06/28/17 05:02 06/28/17 05:02 Diabetes panel 06/28/17 Range/Units 05:02 Sodium 140 (136-145) mEq/L Potassium 3.8 (3.5-5.1) mEq/L Chloride 107 (98-107) mEq/L Carbon Dioxide 27 (23-29) mEq/L BUN 9 (8-23) mg/dL Creatinine 0.74 (0.60-1.20) mg/dL Glucose 86 (70-105) mg/dL Calcium 8.8 (8.6-10.3) mg/dL AST 165 H (13-39) Units/L ALT 170 H (7-52) Units/L Alkaline Phosphatase 155 H (34-104) Units/L Albumin 2.9 L (3.5-5.7) g/dL Calcium panel 06/28/17 Range/Units 05:02 Calcium 8.8 (8.6-10.3) mg/dL Albumin 2.9 L (3.5-5.7) g/dL Pituitary panel 06/28/17 Range/Units 05:02 Sodium 140 (136-145) mEq/L Potassium 3.8 (3.5-5.1) mEq/L Chloride 107 (98-107) mEq/L Carbon Dioxide 27 (23-29) mEq/L BUN 9 (8-23) mg/dL Creatinine 0.74 (0.60-1.20) mg/dL Glucose 86 (70-105) mg/dL Calcium 8.8 (8.6-10.3) mg/dL Adrenal panel 06/28/17 Range/Units 05:02 Sodium 140 (136-145) mEq/L Potassium 3.8 (3.5-5.1) mEq/L Chloride 107 (98-107) mEq/L Carbon Dioxide 27 (23-29) mEq/L BUN 9 (8-23) mg/dL Creatinine 0.74 (0.60-1.20) mg/dL Glucose 86 (70-105) mg/dL Calcium 8.8 (8.6-10.3) mg/dL Total Bilirubin 1.6 H (0.3-1.0) mg/dL AST 165 H (13-39) Units/L ALT 170 H (7-52) Units/L Alkaline Phosphatase 155 H (34-104) Units/L Albumin 2.9 L (3.5-5.7) g/dL Consult Discharge Plan - Plan Referrals: Ghanshyam Taylor [Primary Care Provider] - <Rafita Frazier - Last Filed: 06/28/17 13:08> Date of Encounter: 06/28/17 Objective Vital Signs - Last 8 Hours Temp Pulse Resp BP Pulse Ox 06/28/17 11:58 97.6 F 48 16 105/61 95 06/28/17 07:10 97.9 F 58 16 118/68 94 Intake and Output 06/27/17 06/28/17 06/28/17 23:59 07:59 15:59 Intake Total 1000 / 1000 500 / 500 Output Total 200 / 200 Balance 800 / 800 500 / 500 Intake: IV Fluids 1000 / 1000 500 / 500 0.9 % Sodium Chloride 1,000 ML 1000 / 1000 @ 100 mls/hr IVC .Q10H [facility] Rx#: [id number] Cipro Premix 400 MG/200 ML 400 400 / 400 mg In 200 ml @ 200 mls/hr IVPB Q12HR [facility] Rx#:[id number] Flagyl Premix 500 MG/100 ML 500 100 / 100 mg In 100 ml @ 100 mls/hr IVPB Q8HR [facility] Rx#:[id number] Output: Urine 200 / 200 Other: Weight 51.256 kg Blood Glucose* 87 97 86 Patient Weight 06/28/17 23:59 Weight 51.256 kg - Labs 06/28/17 05:02 06/28/17 05:02 Diabetes panel 06/28/17 Range/Units 05:02 Sodium 140 (136-145) mEq/L Potassium 3.8 (3.5-5.1) mEq/L Chloride 107 (98-107) mEq/L Carbon Dioxide 27 (23-29) mEq/L BUN 9 (8-23) mg/dL Creatinine 0.74 (0.60-1.20) mg/dL Glucose 86 (70-105) mg/dL Calcium 8.8 (8.6-10.3) mg/dL AST 165 H (13-39) Units/L ALT 170 H (7-52) Units/L Alkaline Phosphatase 155 H (34-104) Units/L Albumin 2.9 L (3.5-5.7) g/dL Calcium panel 06/28/17 Range/Units 05:02 Calcium 8.8 (8.6-10.3) mg/dL Albumin 2.9 L (3.5-5.7) g/dL Pituitary panel 06/28/17 Range/Units 05:02 Sodium 140 (136-145) mEq/L Potassium 3.8 (3.5-5.1) mEq/L Chloride 107 (98-107) mEq/L Carbon Dioxide 27 (23-29) mEq/L BUN 9 (8-23) mg/dL Creatinine 0.74 (0.60-1.20) mg/dL Glucose 86 (70-105) mg/dL Calcium 8.8 (8.6-10.3) mg/dL Adrenal panel 06/28/17 Range/Units 05:02 Sodium 140 (136-145) mEq/L Potassium 3.8 (3.5-5.1) mEq/L Chloride 107 (98-107) mEq/L Carbon Dioxide 27 (23-29) mEq/L BUN 9 (8-23) mg/dL Creatinine 0.74 (0.60-1.20) mg/dL Glucose 86 (70-105) mg/dL Calcium 8.8 (8.6-10.3) mg/dL Total Bilirubin 1.6 H (0.3-1.0) mg/dL AST 165 H (13-39) Units/L ALT 170 H (7-52) Units/L Alkaline Phosphatase 155 H (34-104) Units/L Albumin 2.9 L (3.5-5.7) g/dL - Attending Attestation I have personally seen and examined the patient. I have reviewed pertinent labs , imaging, progress notes, including this one. I agree with the above assessment and plan and wish to include the following... 62F with diverticulitis; repeat episode; TTP along suprapubic and LLQ; non peritonea; discussed with patient again concerning getting an ostomy vs waiting and likley not getting an ostomy; she insists that she understands; again will need risk stratification from hospitalist; in addition will find a time to take her to the OR and plan for a bowel prep the day before; continue diet at present
--- NOTE | 2017-06-28 11:14 | Electrocardiograph Report ---
[address] [place] [address] Test Date: 2017-06-27 Pat Name: Zoë Jessica Department: 113 Room: 3B46 Gender: F Hydrographer: : 1955 Requested By: Hermann Reed Order Number: [id number] Reading MD: Mirza Contreras MD Measurements Intervals [place] Rate: 58 P: 62 WA: 161 QRS: -34 QRSD: 90 T: 50 QT: 443 QTc: 439 Interpretive Statements SINUS BRADYCARDIA MARKED LEFT AXIS DEVIATION Electronically Signed On 06-28-2017 11:12:58 EST by Mirza Contreras MD
--- NOTE | 2017-06-28 15:28 | Internal Med Progress Note ---
Date of Encounter: 06/28/17 Time of Encounter: 15:26 - Assessment and plan (1) Cholelithiasis Current Visit: Yes Status: Acute Assessment and plan: Presents with sharp 8/10 right upper quadrant epigastric pain, transaminitis, elevations in total bilirubin and direct bilirubin. Initially complained of nausea without vomiting. Positive Dougherty's sign to palpation. CT scan of abdomen reveals cholelithiasis with diffuse gallbladder wall thickening. G.US 6mm dilitation of DBD and 6mm wall thickening with mild pericholecystic fluid. Per ASGE risk stratification, 6mm CBD dilatation, transaminitis and total bili elevations places her at high risk for cholecocholithiasis -MRCP: 1. Distended gallbladder with gallbladder wall thickening/edema and cholelithiasis. wall thickening appears slightly more prominent when compared to earlier exams. -Gallbladder u/s: Cholelithiasis, gallbladder wall thickening, suggestive of mild pericholecystic fluid -Surgery team on board, recommendations appreciated -pain management with Hydrocodone and Morphine -antiemetics -LFTs AST/ALT/ALP all showed improvement Bowel rest, IVF NS at 100 ml/hr Qualifiers: Cholelithiasis location: gallbladder Cholecystitis presence: without cholecystitis Biliary obstruction: without biliary obstruction Qualified Code(s): K80.20 - Calculus of gallbladder without cholecystitis without obstruction (2) Acute diverticulitis Current Visit: Yes Status: Acute Assessment and plan: Patient is a history of diverticulitis. Presents today with acute abdominal pain, CT abdomen and pelvis reveals uncomplicated acute diverticulitis. The patient is immunocompromised secondary to hepatitis C -Remain nothing by mouth for bowel rest -Continue ATB with ciprofloxacin and metronidazole (3) Transaminitis Current Visit: Yes Status: Chronic Assessment and plan: Transaminitis correlates with the patient's clinical presentation. Continue to trend. See plan above (4) Tobacco abuse Current Visit: Yes Status: Acute (5) Hepatitis C Current Visit: Yes Status: Chronic Qualifiers: Viral hepatitis chronicity: chronic Hepatic coma status: without hepatic coma Qualified Code(s): B18.2 - Chronic viral hepatitis C (6) DVT prophylaxis Current Visit: Yes Status: Acute Assessment and plan: EPCD's - Subjective Interval history: Patient complains of some crampy pain, just now receiving morphine and getting pain relief. Denies fevers/chills, n/v. - Constitutional Vitals: Temp Pulse Resp BP Pulse Ox 98.5 F 52 16 109/66 95 06/28/17 15:24 06/28/17 15:24 06/28/17 15:24 06/28/17 15:24 06/28/17 15:24 General appearance: Present: cooperative, mild distress, A&O X 3, answers questions appropriately Exam: - Head Head exam: Present: atraumatic, normocephalic - Eye Eye exam: Present: PERRL, conjuntiva pink, sclera anicteric Pupils: Present: PERRL - Neck Neck exam general surgery: Present: supple, trachea midline. Absent: lymphadenopathy - Respiratory Respiratory exam: Present: CTAB. Absent: accessory muscle use, rales, rhonchi, wheezes - Cardiovascular Cardiovascular exam: Present: RRR, +S1, +S2. Absent: diastolic murmur, gallop, rubs, systolic murmur - GI/Abdominal GI/Abdominal exam: Present: normal bowel sounds, soft, no peritoneal signs. Absent: distended, tenderness - Extremities Exam Extremities exam: Present: warm, radial pulses palpable and symmetrical. Absent : calf tenderness, cyanotic, pedal edema - Neurological Exam Neurological exam: Present: alert, oriented X3. Absent: facial droop, speech deficit - Skin Skin exam: Present: dry, intact Internal Medicine: Result - Labs CBC & Chem 7: 06/28/17 05:02 06/28/17 05:02 Labs: Short CBC 06/28/17 Range/Units 05:02 WBC 4.8 (4.3-11.1) K/mcL Hgb 13.3 D (11.5-15.4) g/dL Hct 40.8 (35.3-44.9) % Plt Count 67 L (140-400) K/mcL Neutrophils # 2.9 (1.6-8.9) K/mcL BMP 06/28/17 05:02 Sodium 140 Potassium 3.8 Chloride 107 Carbon Dioxide 27 BUN 9 Creatinine 0.74 Glucose 86 Calcium 8.8 Liver Function 06/28/17 Range/Units 05:02 Total Bilirubin 1.6 H (0.3-1.0) mg/dL AST 165 H (13-39) Units/L ALT 170 H (7-52) Units/L Alkaline Phosphatase 155 H (34-104) Units/L Albumin 2.9 L (3.5-5.7) g/dL Consult Discharge Plan - Plan Referrals: Ghanshyam Taylor [Primary Care Provider] -
[2017-06-29] MEDS: *HR* Morphine 2 MG/ML SYRINGE IVP PRN (05:41)
[2017-06-29] MEDS: 0.9 % Sodium Chloride 1,000 ML IVC SCH ×4 (06:24→23:33)
[2017-06-29 07:17] LABS: Mean Corpuscular HGB Conc 33.6 g/dL (31.6-35.5); Mean Corpuscular Hemoglobin 31.8 pg (28.0-33.3); Mean Corpuscular Volume 94.7 fL (83.0-100.0)
[2017-06-29 07:19] LABS: Basophils % 0.8 %; Eosinophils % 0.8 %; Hematocrit 37.5 % (35.3-44.9); Hemoglobin 12.6 g/dL (11.5-15.4); Immature Granulocytes % 0.2 % (0-4); Immature Platelets 10.2 % (1.1-6.1); Lymphocytes # 1.3 K/mcL (0.6-4.6); Lymphocytes % 24.7 %; Mean Platelet Volume 11.7 fL (9.4-12.4); Monocytes # 0.6 K/mcL (0.0-1.3); Monocytes % 11.6 %; Neutrophils # 3.2 K/mcL (1.6-8.9); Red Blood Count 3.96 M/mcL (3.82-4.97); Red Cell Distribution Width 13.2 % (11.5-14.5); Segmented Neutrophils % 61.9 %
[2017-06-29 07:23] LABS: Platelet Count 63 K/mcL (140-400)
[2017-06-29 07:43] LABS: BUN/Creatinine Ratio 13 (6-26); Blood Urea Nitrogen 10 mg/dL (8-23); Calcium 8.6 mg/dL (8.6-10.3); Carbon Dioxide 25 mEq/L (23-29); Chloride 108 mEq/L (98-107); Glucose 73 mg/dL (70-105); Osmolality,Calculated 284 (280-300); Potassium 3.6 mEq/L (3.5-5.1); Sodium 138 mEq/L (136-145); eGFR For African Americans > 60 (> 60); eGFR For Non-African Americans > 60 (> 60)
--- NOTE | 2017-06-29 07:49 | General Surgery Progress Note ---
<Juliette Burkett - Last Filed: 06/29/17 11:37> Date of Encounter: 06/29/17 Time of Encounter: 07:49 - Assessment and Plan (1) Cholelithiasis Current Visit: Yes Status: Acute 62 y F with Hinchey Class I diverticulitis presenting with acute epigastric pain , consistent with typical biliary symptoms but equivocal transabdominal U/S findings for complications. -Continue management acute pain control -Slow advancement of diet Qualifiers: Cholelithiasis location: gallbladder Cholecystitis presence: without cholecystitis Biliary obstruction: without biliary obstruction Qualified Code(s): K80.20 - Calculus of gallbladder without cholecystitis without obstruction (2) Diverticulitis Current Visit: Yes Status: Acute Abdomen CT demonstrated Uncomplicated acute diverticulitis of the distal descending/proximal sigmoid colon, with diverticulosis seen elsewhere. C Continue management. May advance diet slowly. Attending reviewed plan with patient is not currently surgical candidate, pt verbalized understanding. (3) Transaminitis Current Visit: Yes Status: Chronic 03/2017 AST/ALT 330: 400. 06/27/17 AST/ALT: 240/240. 06/28/16 AST/ALT: 165/170. Downtrended. (4) Hepatitis C Current Visit: Yes Status: Chronic Chronic Hep C, Chronic inactive Hep B. Follows with GI Dr. Gavin as outpatient. Cirrhosis seen on imaging, pt endorses alcohol use as well. Qualifiers: Viral hepatitis chronicity: chronic Hepatic coma status: without hepatic coma Qualified Code(s): B18.2 - Chronic viral hepatitis C (5) Thrombocytopenia Current Visit: Yes Status: Acute Secondary Thrombocytopenia: Isolated Thrombocytopenia likely 2/2 due to underlying condition (HCV). Consistent with elevated transaminases and elevated immature platelet fraction seen on CBC and general profile of CBC. Patient follows with GI outpatient for HCV. Continue serial CBCs in AM, with monitoring for clinical symptoms. (6) Tobacco abuse Current Visit: Yes Status: Acute Management per medical team (7) DVT prophylaxis Current Visit: Yes Status: Acute Management per medical team. Subjective Patient reports: no new complaints, feels better, flatus, no bowel movement, afebrile Narrative: Feels improved. Does not like using pain scale. Eagerly awaiting resumption of diet. Denies gingival bleeding, purpura, or new unexplained bruising. No shortness of breath, no chest pain. Objective Vital Signs - Last 8 Hours Temp Pulse Resp BP Pulse Ox 06/29/17 07:10 98.0 F 57 18 128/64 96 06/29/17 03:46 97.9 F 80 16 122/75 93 Intake and Output 06/28/17 06/28/17 06/29/17 15:59 23:59 07:59 Intake Total 100 / 100 300 / 300 100 / 100 Balance 100 / 100 300 / 300 100 / 100 Intake: IV Fluids 100 / 100 300 / 300 100 / 100 Cipro Premix 400 MG/200 ML 400 200 / 200 mg In 200 ml @ 200 mls/hr IVPB Q12HR [facility] Rx#:[id number] Flagyl Premix 500 MG/100 ML 500 100 / 100 100 / 100 100 / 100 mg In 100 ml @ 100 mls/hr IVPB Q8HR [facility] Rx#:[id number] Other: Meal NPO Weight 51.256 kg Blood Glucose* 86 83 100 Patient Weight 06/29/17 23:59 Weight 51.256 kg - General physical appearance no distress - Eyes normal ocular movement - Respiratory normal expansion, normal respiratory effort, clear to percussion - Cardiovascular Cardiovascular exam: Present: RRR - Abdomen Abdomen: Present: bowel sounds present, soft, non tender. Absent: distended - Integumentary other (no purpura evident ) - Neurologic normal coordination - Labs 06/29/17 05:26 06/29/17 05:26 Diabetes panel 06/29/17 Range/Units 05:26 Sodium 138 (136-145) mEq/L Potassium 3.6 (3.5-5.1) mEq/L Chloride 108 H (98-107) mEq/L Carbon Dioxide 25 (23-29) mEq/L BUN 10 (8-23) mg/dL Creatinine 0.77 (0.60-1.20) mg/dL Glucose 73 (70-105) mg/dL Calcium 8.6 (8.6-10.3) mg/dL Calcium panel 06/29/17 Range/Units 05:26 Calcium 8.6 (8.6-10.3) mg/dL Pituitary panel 06/29/17 Range/Units 05:26 Sodium 138 (136-145) mEq/L Potassium 3.6 (3.5-5.1) mEq/L Chloride 108 H (98-107) mEq/L Carbon Dioxide 25 (23-29) mEq/L BUN 10 (8-23) mg/dL Creatinine 0.77 (0.60-1.20) mg/dL Glucose 73 (70-105) mg/dL Calcium 8.6 (8.6-10.3) mg/dL Adrenal panel 06/29/17 Range/Units 05:26 Sodium 138 (136-145) mEq/L Potassium 3.6 (3.5-5.1) mEq/L Chloride 108 H (98-107) mEq/L Carbon Dioxide 25 (23-29) mEq/L BUN 10 (8-23) mg/dL Creatinine 0.77 (0.60-1.20) mg/dL Glucose 73 (70-105) mg/dL Calcium 8.6 (8.6-10.3) mg/dL Consult Discharge Plan - Plan Instructions: Low Fiber Diet (GEN) Additional Instructions: Low residue diet for the next 6-8 weeks Referrals: Rafita Frazier MD [Non-Partnered Physician] - (Hospital follow-up; discuss interval colonoscopy and sigmoid colon resection) Ghanshyam Taylor [Primary Care Provider] - Prescriptions: Ciprofloxacin HCl [Cipro] 500 mg PO BID #20 tablet HYDROcodone/Acet 5/325 mg [[place] 5-325 mg] 1 tab PO Q6H PRN #28 tab PRN Reason: Pain metroNIDAZOLE [Flagyl] 500 mg PO TID #30 tablet <Rafita Frazier - Last Filed: 06/29/17 16:50> Date of Encounter: 06/29/17 Objective Vital Signs - Last 8 Hours Temp Pulse Resp BP Pulse Ox 06/29/17 15:07 97.9 F 65 18 148/80 06/29/17 09:27 96 Intake and Output 06/29/17 06/29/17 06/29/17 07:59 15:59 23:59 Intake Total 100 / 100 300 / 300 Balance 100 / 100 300 / 300 Intake: IV Fluids 100 / 100 300 / 300 Cipro Premix 400 MG/200 ML 400 200 / 200 mg In 200 ml @ 200 mls/hr IVPB Q12HR [facility] Rx#:[id number] Flagyl Premix 500 MG/100 ML 500 100 / 100 100 / 100 mg In 100 ml @ 100 mls/hr IVPB Q8HR [facility] Rx#:[id number] Other: Weight 51.256 kg Blood Glucose* 100 Patient Weight 06/29/17 23:59 Weight 51.256 kg - Labs 06/29/17 05:26 06/29/17 05:26 Diabetes panel 06/29/17 Range/Units 05:26 Sodium 138 (136-145) mEq/L Potassium 3.6 (3.5-5.1) mEq/L Chloride 108 H (98-107) mEq/L Carbon Dioxide 25 (23-29) mEq/L BUN 10 (8-23) mg/dL Creatinine 0.77 (0.60-1.20) mg/dL Glucose 73 (70-105) mg/dL Calcium 8.6 (8.6-10.3) mg/dL Calcium panel 06/29/17 Range/Units 05:26 Calcium 8.6 (8.6-10.3) mg/dL Pituitary panel 06/29/17 Range/Units 05:26 Sodium 138 (136-145) mEq/L Potassium 3.6 (3.5-5.1) mEq/L Chloride 108 H (98-107) mEq/L Carbon Dioxide 25 (23-29) mEq/L BUN 10 (8-23) mg/dL Creatinine 0.77 (0.60-1.20) mg/dL Glucose 73 (70-105) mg/dL Calcium 8.6 (8.6-10.3) mg/dL Adrenal panel 06/29/17 Range/Units 05:26 Sodium 138 (136-145) mEq/L Potassium 3.6 (3.5-5.1) mEq/L Chloride 108 H (98-107) mEq/L Carbon Dioxide 25 (23-29) mEq/L BUN 10 (8-23) mg/dL Creatinine 0.77 (0.60-1.20) mg/dL Glucose 73 (70-105) mg/dL Calcium 8.6 (8.6-10.3) mg/dL - Attending Attestation I have personally seen and examined the patient. I have reviewed pertinent labs , imaging, progress notes, including this one. I agree with the above assessment and plan and wish to include the following... okay for diet as tolerated once tolerating diet, can SLIV and transition to PO abx
[2017-06-29] MEDS: MetroNIDAZOLE 500 MG/100 ML 500 MG/100 ML BAG IVPB SCH ×3 (09:20→23:32)
[2017-06-29] MEDS: Famotidine 20 MG TABLET PO SCH (09:21)
[2017-06-29] MEDS: Diltiazem CD (24hr) 180 MG CAPSULE PO SCH (09:21)
--- NOTE | 2017-06-29 13:05 | Event Note ---
Date of Encounter: 06/29/17 Time of Encounter: 13:00 - Patient Status Disposition: Home, Self-Care Condition: Good Functional capacity at discharge: independent ambulation Overall status at discharge: patient is progressing back to baseline - Discharge Instructions Instructions: Low Fiber Diet (GEN) Follow Up With: Ghanshyam Taylor [Primary Care Provider] - Rafita Frazier MD [Non-Partnered Physician] - (Hospital follow-up; discuss interval colonoscopy and sigmoid colon resection) Additional Instructions: Low residue diet for the next 6-8 weeks - Diet and Activity Activity: increase activity as tolerated Diet: other (Low fiber diet)
--- NOTE | 2017-06-29 17:45 | Internal Med Progress Note ---
Date of Encounter: 06/29/17 Time of Encounter: 17:43 - Assessment and plan (1) Cholelithiasis Current Visit: Yes Status: Acute Assessment and plan: Presents with sharp 8/10 right upper quadrant epigastric pain, transaminitis, elevations in total bilirubin and direct bilirubin. Initially complained of nausea without vomiting. Positive Dougherty's sign to palpation. CT scan of abdomen reveals cholelithiasis with diffuse gallbladder wall thickening. G.US 6mm dilitation of DBD and 6mm wall thickening with mild pericholecystic fluid. Per ASGE risk stratification, 6mm CBD dilatation, transaminitis and total bili elevations places her at high risk for cholecocholithiasis -MRCP: 1. Distended gallbladder with gallbladder wall thickening/edema and cholelithiasis. wall thickening appears slightly more prominent when compared to earlier exams. -Gallbladder u/s: Cholelithiasis, gallbladder wall thickening, suggestive of mild pericholecystic fluid -Surgery team on board, recommendations appreciated -pain management with Hydrocodone and Morphine -antiemetics -LFTs AST/ALT/ALP all showed improvement Qualifiers: Cholelithiasis location: gallbladder Cholecystitis presence: without cholecystitis Biliary obstruction: without biliary obstruction Qualified Code(s): K80.20 - Calculus of gallbladder without cholecystitis without obstruction (2) Acute diverticulitis Current Visit: Yes Status: Acute Assessment and plan: Patient is a history of diverticulitis. Presents today with acute abdominal pain, CT abdomen and pelvis reveals uncomplicated acute diverticulitis. The patient is immunocompromised secondary to hepatitis C - Continue ATB with ciprofloxacin and metronidazole - Advance diet as tolerated. (3) Transaminitis Current Visit: Yes Status: Chronic Assessment and plan: Transaminitis correlates with the patient's clinical presentation. Continue to trend. See plan above (4) Tobacco abuse Current Visit: Yes Status: Acute (5) Hepatitis C Current Visit: Yes Status: Chronic Qualifiers: Viral hepatitis chronicity: chronic Hepatic coma status: without hepatic coma Qualified Code(s): B18.2 - Chronic viral hepatitis C (6) DVT prophylaxis Current Visit: Yes Status: Acute Assessment and plan: EPCD's - Subjective Interval history: Pain much better since yesterday. Advancing diet to clears during my evaluation. She has no complaints. Denies fevers/chills, n/v. - Constitutional Vitals: Temp Pulse Resp BP Pulse Ox 97.9 F 65 18 148/80 96 06/29/17 15:07 06/29/17 15:07 06/29/17 15:07 06/29/17 15:07 06/29/17 09:27 General appearance: Present: cooperative, mild distress, A&O X 3, answers questions appropriately Exam: - Head Head exam: Present: atraumatic, normocephalic - Eye Eye exam: Present: PERRL, conjuntiva pink, sclera anicteric Pupils: Present: PERRL - Neck Neck exam general surgery: Present: supple, trachea midline. Absent: lymphadenopathy - Respiratory Respiratory exam: Present: CTAB. Absent: accessory muscle use, rales, rhonchi, wheezes - Cardiovascular Cardiovascular exam: Present: RRR, +S1, +S2. Absent: diastolic murmur, gallop, rubs, systolic murmur - GI/Abdominal GI/Abdominal exam: Present: normal bowel sounds, soft, no peritoneal signs. Absent: distended, tenderness - Extremities Exam Extremities exam: Present: warm, radial pulses palpable and symmetrical. Absent : calf tenderness, cyanotic, pedal edema - Neurological Exam Neurological exam: Present: alert, oriented X3. Absent: facial droop, speech deficit - Skin Skin exam: Present: dry, intact Internal Medicine: Result - Labs CBC & Chem 7: 06/29/17 05:26 06/29/17 05:26 Labs: Short CBC 06/29/17 Range/Units 05:26 WBC 5.2 (4.3-11.1) K/mcL Hgb 12.6 (11.5-15.4) g/dL Hct 37.5 (35.3-44.9) % Plt Count 63 L (140-400) K/mcL Neutrophils # 3.2 (1.6-8.9) K/mcL BMP 06/29/17 05:26 Sodium 138 Potassium 3.6 Chloride 108 H Carbon Dioxide 25 BUN 10 Creatinine 0.77 Glucose 73 Calcium 8.6 - VTE Documentation of Mechanical Device: Intermittent pneumatic compression device Consult Discharge Plan - Plan Instructions: Low Fiber Diet (GEN) Additional Instructions: Low residue diet for the next 6-8 weeks Referrals: Rafita Frazier MD [Non-Partnered Physician] - (Hospital follow-up; discuss interval colonoscopy and sigmoid colon resection) Ghanshyam Taylor [Primary Care Provider] - Prescriptions: Ciprofloxacin HCl [Cipro] 500 mg PO BID #20 tablet HYDROcodone/Acet 5/325 mg [[place] 5-325 mg] 1 tab PO Q6H PRN #28 tab PRN Reason: Pain metroNIDAZOLE [Flagyl] 500 mg PO TID #30 tablet
[2017-06-30] MEDS: MetroNIDAZOLE 500 MG/100 ML 500 MG/100 ML BAG IVPB SCH ×3 (08:07→23:25)
[2017-06-30] MEDS: Famotidine 20 MG TABLET PO SCH (08:08)
[2017-06-30] MEDS: Diltiazem CD (24hr) 180 MG CAPSULE PO SCH (08:08)
--- NOTE | 2017-06-30 16:49 | Internal Med Progress Note ---
Date of Encounter: 06/30/17 Time of Encounter: 16:47 - Assessment and plan (1) Cholelithiasis Current Visit: Yes Status: Acute Assessment and plan: Presents with sharp 8/10 right upper quadrant epigastric pain, transaminitis, elevations in total bilirubin and direct bilirubin. Initially complained of nausea without vomiting. Positive Dougherty's sign to palpation. CT scan of abdomen reveals cholelithiasis with diffuse gallbladder wall thickening. G.US 6mm dilitation of DBD and 6mm wall thickening with mild pericholecystic fluid. Per ASGE risk stratification, 6mm CBD dilatation, transaminitis and total bili elevations places her at high risk for cholecocholithiasis -MRCP: 1. Distended gallbladder with gallbladder wall thickening/edema and cholelithiasis. wall thickening appears slightly more prominent when compared to earlier exams. -Gallbladder u/s: Cholelithiasis, gallbladder wall thickening, suggestive of mild pericholecystic fluid -Surgery team on board, recommendations appreciated -pain management with Hydrocodone and Morphine -antiemetics -LFTs AST/ALT/ALP all showed improvement Qualifiers: Cholelithiasis location: gallbladder Cholecystitis presence: without cholecystitis Biliary obstruction: without biliary obstruction Qualified Code(s): K80.20 - Calculus of gallbladder without cholecystitis without obstruction (2) Acute diverticulitis Current Visit: Yes Status: Acute Assessment and plan: Patient is a history of diverticulitis. Presents today with acute abdominal pain, CT abdomen and pelvis reveals uncomplicated acute diverticulitis. The patient is immunocompromised secondary to hepatitis C - Continue ATB with ciprofloxacin and metronidazole - Advance diet as tolerated. (3) Transaminitis Current Visit: Yes Status: Chronic Assessment and plan: Transaminitis correlates with the patient's clinical presentation. Continue to trend. See plan above (4) Tobacco abuse Current Visit: Yes Status: Acute (5) Hepatitis C Current Visit: Yes Status: Chronic Qualifiers: Viral hepatitis chronicity: chronic Hepatic coma status: without hepatic coma Qualified Code(s): B18.2 - Chronic viral hepatitis C (6) DVT prophylaxis Current Visit: Yes Status: Acute Assessment and plan: EPCD's - Subjective Interval history: Patient ready to advance diet to full liquid, she has rejected the AM clear liquid tray. No complaints, no acute events. - Constitutional Vitals: Temp Pulse Resp BP Pulse Ox 98.5 F 50 16 105/66 97 06/30/17 15:26 06/30/17 15:26 06/30/17 15:26 06/30/17 15:26 06/30/17 15:26 General appearance: Present: cooperative, mild distress, A&O X 3, answers questions appropriately Exam: CVS: RRR Lungs: CTAB Abd: soft, minimal TTP, non-distended, no rebound tenderness, no guarding. Ext: no edema. Internal Medicine: Result - Labs CBC & Chem 7: 06/29/17 05:26 06/29/17 05:26 - VTE Documentation of Mechanical Device: Intermittent pneumatic compression device Consult Discharge Plan - Plan Instructions: Low Fiber Diet (GEN) Additional Instructions: Low residue diet for the next 6-8 weeks Referrals: Rafita Frazier MD [Non-Partnered Physician] - (Hospital follow-up; discuss interval colonoscopy and sigmoid colon resection) Ghanshyam Taylor [Primary Care Provider] - Prescriptions: Ciprofloxacin HCl [Cipro] 500 mg PO BID #20 tablet HYDROcodone/Acet 5/325 mg [[place] 5-325 mg] 1 tab PO Q6H PRN #28 tab PRN Reason: Pain metroNIDAZOLE [Flagyl] 500 mg PO TID #30 tablet
[2017-07-01] MEDS: *HR* HYDROcodone/Acet 5/325 mg TABLET PO PRN (03:35)
[2017-07-01] MEDS: MetroNIDAZOLE 500 MG/100 ML 500 MG/100 ML BAG IVPB SCH ×2 (07:43→15:28)
[2017-07-01] MEDS: Famotidine 20 MG TABLET PO SCH (07:44)
[2017-07-01] MEDS: Diltiazem CD (24hr) 180 MG CAPSULE PO SCH (07:44)
[2017-07-01 16:22] VITALS: BP 114/68
--- NOTE | 2017-07-01 16:58 | Discharge Summary ---
Date of Encounter: 07/01/17 Time of Encounter: 16:54 - Discharge Diagnosis (1) Acute diverticulitis Priority: Primary Status: Acute (2) Cholelithiasis Priority: Secondary Status: Acute Qualifiers: Cholelithiasis location: gallbladder Cholecystitis presence: without cholecystitis Biliary obstruction: without biliary obstruction Qualified Code(s): K80.20 - Calculus of gallbladder without cholecystitis without obstruction (3) Transaminitis Priority: Secondary Status: Chronic (4) Tobacco abuse Priority: Secondary Status: Acute (5) Hepatitis C Priority: Secondary Status: Chronic Qualifiers: Viral hepatitis chronicity: chronic Hepatic coma status: without hepatic coma Qualified Code(s): B18.2 - Chronic viral hepatitis C (6) DVT prophylaxis Priority: Secondary Status: Acute - Discharge Medications Prescriptions: Ciprofloxacin HCl [Cipro] 500 mg PO BID #20 tablet HYDROcodone/Acet 5/325 mg [[place] 5-325 mg] 1 tab PO Q6H PRN #28 tab PRN Reason: Pain metroNIDAZOLE [Flagyl] 500 mg PO TID #30 tablet Home Medications: Diltiazem CD (24hr) [Cardizem CD] 180 mg PO DAILY 06/27/17 [History] Famotidine [Pepcid] 40 mg PO DAILY 06/27/17 [History] Ciprofloxacin HCl [Cipro] 500 mg PO BID #20 tablet 06/29/17 [Rx] HYDROcodone/Acet 5/325 mg [[place] 5-325 mg] 1 tab PO Q6H PRN #28 tab 06/29/17 [Rx ] metroNIDAZOLE [Flagyl] 500 mg PO TID #30 tablet 06/29/17 [Rx] Allergies/Adverse Reactions: 3 Allergy/AdvReac Type Severity Reaction Status Date / Time niacin Allergy Flushing Verified 06/27/17 09:25 Penicillins [PCN] Allergy Rash Verified 06/27/17 09:25 duracef Allergy See Uncoded 06/27/17 09:25 Comments Date of admission: 06/27/17 15:50 Primary care physician: Ghanshyam Taylor Consults: 06/27/17 16:51 Consult to Jumbo Operator [CONS] Routine Reason for SW Consult: ETOL WD 06/29/17 09:42 consult to pulp house supervisor [Consult to Nutrition] [CONS] Routine Comment: Low-fiber diet Consulting Provider: NUTRITION Reason for Dietary Consult: Diet Education Discharging clinician: Ken Carranza - Patient Status Disposition: Home, Self-Care Condition: Good Functional capacity at discharge: independent ambulation Overall status at discharge: patient is progressing back to baseline - Discharge Instructions Instructions: Low Fiber Diet (GEN) Follow Up With: Rafita Frazier MD [Non-Partnered Physician] - (Hospital follow-up; discuss interval colonoscopy and sigmoid colon resection) Ghanshyam Taylor [Primary Care Provider] - Additional Instructions: Low residue diet for the next 6-8 weeks - Diet and Activity Activity: increase activity as tolerated Diet: low fat, low cholesterol, other (low residue diet) Hospital course: Ms. Jessica is a 62 year old female with a PMH of hepatitis C, HLD, HTN. She presents to the ER today with chief complaint of crampy gastric abdominal pain that has been ongoing for approximately 2 weeks. She says the pain is severe and rates it 8/10. She reports that the pain is worse after eating. She admits to nausea without vomiting or diarrhea. She does endorse a change in stool pattern and noticed an increased amount of mucus with each bowel movement. Additionally, she reports that a bloody bowel movement yesterday but his had no additional bloody bowel movements since. She denies any fever, chills, rigors, chest pain, shortness of breath. CT of abdomen and pelvis showed cholelithiasis with diffuse gallbladder wall thickening. Also showed diverticulitis. She was started on Cipro and Flagyl. Surgery team consulted. Transabdominal ultrasound done had equivocal findings. She had started with bowel rest and slowly advanced diet. Patient was able to tolerate adequate amount of food after 2 days of bowel rest. She was afebrile and hemodynamically stable during this time. Abdominal pain was resolved. She was discharged home in stable condition to complete course of Cipro/Flagyl for diverticulitis. - Time Spent with Patient Total time spent providing and/or coordinating discharge services: - Constitutional Vitals: Temp Pulse Resp BP Pulse Ox 98.0 F 47 16 114/68 97 07/01/17 16:22 07/01/17 16:22 07/01/17 16:22 07/01/17 16:22 07/01/17 16:22 General appearance: Present: cooperative, mild distress, A&O X 3, answers questions appropriately - Head Head exam: Present: atraumatic, normocephalic - Eye Eye exam: Present: PERRL, conjuntiva pink, sclera anicteric Pupils: Present: PERRL - Neck Neck exam general surgery: Present: supple, trachea midline. Absent: lymphadenopathy - Respiratory Respiratory exam: Present: CTAB. Absent: accessory muscle use, rales, rhonchi, wheezes - Cardiovascular Cardiovascular exam: Present: RRR, +S1, +S2. Absent: diastolic murmur, gallop, rubs, systolic murmur - GI/Abdominal GI/Abdominal exam: Present: normal bowel sounds, soft, no peritoneal signs. Absent: distended, tenderness - Extremities Exam Extremities exam: Present: warm, radial pulses palpable and symmetrical. Absent : calf tenderness, cyanotic, pedal edema - Neurological Exam Neurological exam: Present: CN II-XII intact, oriented X3, no focal deficits. Absent: pronater drift, facial droop, speech deficit - Skin Skin exam: Present: dry, intact - VTE Documentation of Mechanical Device: Intermittent pneumatic compression device
== END 2017-07-01 18:07 | disposition home or self-care (01) | DRG 244 ==
LOC: 3BNU 08:39 → EMEROO 08:39 → 3BNU 14:39 → SUATTDRO 15:50 → 3BNU 06-30 23:47
PROVIDERS: ADMIT Registered Nurse; ATTEND Student in an Organized Health Care Education/Training Program

== ENCOUNTER 2017-08-04 07:35 | Observation (INO) ==
[2017-08-04] MEDS ORDERED: Promethazine 25 MG in 0.9 % Sodium Chloride 50 ML IVPB ONE (07:58)
[2017-08-04] MEDS ORDERED: *HR* FentaNYL (PF) 100 MCG/2 ML VIAL IVP ONE (07:58)
[2017-08-04] MEDS ORDERED: 0.9 % Sodium Chloride 1,000 ML IVC ONE (07:58)
--- NOTE | 2017-08-04 07:58 | Emergency Department Note ---
Disposition Clinical Impression: Colitis Abdominal pain Qualifiers: Abdominal location: generalized Qualified Code(s): R10.84 - Generalized abdominal pain Disposition: Admitted As Inpatient Condition: Fair Abdominal Pain HPI - General Chief Complaint: ED Abdominal Pain Stated Complaint: abd pain, rectal bleed Time Seen by Provider: 08/04/17 07:43 Source: patient Mode of arrival: private vehicle Limitations: no limitations Nursing Notes Reviewed: Yes Vital Signs Reviewed: Yes - History of Present Illness Pt Subjective Complaint: abdominal pain Onset (ago): day(s) (1.5) Consistency: constant, Worsening Location: LLQ, RLQ Pain Severity: severe Pain Scale: 10 Quality: cramping, sharp Radiation: none Migration to: no migration Improves with: nothing Worsens with: eating (or drinking) Context: recent surgery/procedure (Colonoscopy on 07/[address] Shay - no complications, Polyps removed.), history of similar episodes ("But not usually this bad") Associated symptoms: Reports: nausea, diarrhea, hematochezia, melena, anorexia. Denies: vomiting, fever, chills, constipation, dysuria, hematemesis, hematuria , syncope Treatments prior to arrival: none - Related Data Home Medications Medication Instructions Recorded Confirmed Diltiazem CD (24hr) [Cardizem CD] 180 mg PO DAILY 06/27/17 08/04/17 Famotidine [Pepcid] 40 mg PO DAILY 06/27/17 08/04/17 Ondansetron HCl [Ondansetron HCl] 2 tab PO DAILY 07/28/17 08/04/17 Allergies Allergy/AdvReac Type Severity Reaction Status Date / Time niacin Allergy Flushing Verified 08/04/17 07:38 Penicillins [PCN] Allergy Rash Verified 08/04/17 07:38 duracef Allergy See Uncoded 08/04/17 07:38 Comments All systems ED: reviewed and negative except as stated. Review of Systems: As Per HPI Constitutional: Denies: fever, chills, weakness Cardiovascular: Denies: chest pain, palpitations Gastrointestinal: Reports: as per HPI, abdominal pain, nausea, melena, hematochezia. Denies: vomiting, diarrhea, constipation, hematemesis Genitourinary: Denies: urgency, dysuria, frequency, hematuria Musculoskeletal: Denies: back pain Integumentary: Denies: rash, pruritus Neurological: Denies: headache, weakness, confusion, vertigo Hematological/Lymphatic: Denies: easy bleeding, easy bruising, lymphadenopathy Abdominal Pain PMH - Past Medical History Medical history: Reports: COPD, CVA, GERD, hyperlipidemia, hypertension, other ( gal stones) Reports: GI bleed Female Surgical History: Reports: other Psychiatric history: Reports: depression - Social History Smoking status: Current every day smoker Alcohol use: Reports: none Drug use: Reports: none Physical Exam - General Limitations: no limitations General appearance: alert, in no apparent distress - Head Head exam: atraumatic, normocephalic, normal inspection - Eye Eye exam: Present: normal appearance, PERRL. Absent: scleral icterus, conjunctival injection, periorbital swelling - ENT ENT exam: mucous membranes moist - Neck Neck exam: Present: normal inspection, full ROM, trachea midline - Chest Chest inspection: Present: normal inspection - Respiratory Respiratory exam: Present: normal lung sounds bilaterally. Absent: respiratory distress - Cardiovascular Cardiovascular exam: Present: regular rate, normal rhythm, normal heart sounds - Abdominal Exam Abdominal exam: Present: soft, tenderness, normal bowel sounds. Absent: distention, guarding, rebound, rigidity, organomegaly, trauma, Dougherty's sign, ascites, mass, pulsatile mass Abdominal tenderness: Present: RLQ, LLQ, moderate - Extremities Exam Extremities exam: Present: normal inspection, full ROM, normal capillary refill. Absent: pedal edema - Neurological Exam Neurological exam: Present: alert, oriented X3, CN II-XII intact, normal gait - Psychiatric Psychiatric exam: Present: normal affect, normal mood - Skin Skin exam: Present: warm, dry, intact, normal color Course Course Narrative: Patient presents for evaluation of abdominal pain and continued blood in stool. She states that she was admitted here a few weeks ago for similar symptoms. She then had a colonoscopy done by Dr. Frazier on the 15 of this month. She was told she had a few polyps that were removed and another area of the colon that appeared inflamed. Biopsies were obtained and she was told that she did not have cancer. She was put on antibiotics and was doing better until last night when the pain returned. This is accompanied by nausea, vomiting and diarrhea. She states that she is not able to eat or drink anything. She denies fever or chills. She appears uncomfortable and has significant abdominal tenderness. Bowel sounds are normal. She denies any vaginal complaints. She has known history of cholelithiasis but has no tenderness in the right upper quadrant. Negative Dougherty sign. She has had no abdominal surgeries. Labs, meds, fluids, and CT abdomen ordered. Case was discussed with Dr. Lepe. He has had face- to-face time with the patient and agrees with the assessment and plan. Patient's CT shows colitis per radiology. She was here in the month of June for the same, was seen by the surgeon and had a colonoscopy done. She was doing better until last night when her symptoms returned and now are worse than prior. CT shows no evidence of abscess or perforation. She is unable to tolerate PO. Hospitalist has been contacted for admission. Patient has been accepted for admission. Vital Signs Temperature 98.9 F 08/04/17 07:38 Pulse Rate 87 08/04/17 07:38 Respiratory Rate 18 08/04/17 07:38 Blood Pressure 142/84 08/04/17 07:38 O2 Sat by Pulse Oximetry 97 08/04/17 07:38 Temperature 98 F 08/04/17 12:26 Pulse Rate 63 08/04/17 12:26 Respiratory Rate 16 08/04/17 12:26 Blood Pressure 112/65 08/04/17 12:26 O2 Sat by Pulse Oximetry 98 08/04/17 12:26 Oxygen Delivery Oxygen Delivery Room Air Abdominal Pain - Medical Records Medical records reviewed: Yes I reviewed the patient's medical records. - Lab Data Lab results reviewed: Yes I reviewed the patient's lab results. Lab results narrative: Laboratory Last Values WBC 7.2 K/mcL (4.3-11.1) 08/04/17 08:14 RBC 4.77 M/mcL (3.82-4.97) 08/04/17 08:14 Hgb 15.0 g/dL (11.5-15.4) 08/04/17 08:14 Hct 44.8 % (35.3-44.9) 08/04/17 08:14 MCV 93.9 fL (83.0-100.0) 08/04/17 08:14 MCH 31.4 pg (28.0-33.3) 08/04/17 08:14 MCHC 33.5 g/dL (31.6-35.5) 08/04/17 08:14 RDW 13.1 % (11.5-14.5) 08/04/17 08:14 Plt Count 76 K/mcL (140-400) L 08/04/17 08:14 MPV 11.7 fL (9.4-12.4) 08/04/17 08:14 Immature Gran % 0.3 % (0-4) 08/04/17 08:14 Seg Neutrophils % 63.6 % 08/04/17 08:14 Lymphocytes % 23.9 % 08/04/17 08:14 Monocytes % 11.5 % 08/04/17 08:14 Eosinophils % 0.3 % 08/04/17 08:14 Basophils % 0.4 % 08/04/17 08:14 Neutrophils # 4.6 K/mcL (1.6-8.9) 08/04/17 08:14 Lymphocytes # 1.7 K/mcL (0.6-4.6) 08/04/17 08:14 Monocytes # 0.8 K/mcL (0.0-1.3) 08/04/17 08:14 Eosinophils # 0.0 K/mcL (0.0-0.6) 08/04/17 08:14 Basophils # 0.0 K/mcL (0.0-0.2) 08/04/17 08:14 Immature Plt Fraction 10.5 % (1.1-6.1) H 08/04/17 08:14 Sodium 137 mEq/L (136-145) 08/04/17 08:14 Potassium 4.0 mEq/L (3.5-5.1) 08/04/17 08:14 Chloride 105 mEq/L (98-107) 08/04/17 08:14 Carbon Dioxide 26 mEq/L (23-29) 08/04/17 08:14 BUN 7 mg/dL (8-23) L 08/04/17 08:14 Creatinine 0.72 mg/dL (0.60-1.20) 08/04/17 08:14 Est GFR ( Amer) > 60 (> 60) 08/04/17 08:14 Est GFR (Non-Af Amer) > 60 (> 60) 08/04/17 08:14 BUN/Creatinine Ratio 10 (6-26) 08/04/17 08:14 Glucose 112 mg/dL (70-105) H 08/04/17 08:14 Calculated Osmolality 283 (280-300) 08/04/17 08:14 Lactic Acid 0.8 mmol/L (0.5-2.2) 08/04/17 08:14 Calcium 9.7 mg/dL (8.6-10.3) 08/04/17 08:14 Total Bilirubin 1.2 mg/dL (0.3-1.0) H 08/04/17 08:14 Direct Bilirubin 0.3 mg/dL (0.0-0.2) H 08/04/17 08:14 Indirect Bilirubin 0.9 mg/dL (0.0-1.2) 08/04/17 08:14 AST 160 Units/L (13-39) H 08/04/17 08:14 ALT 177 Units/L (7-52) H 08/04/17 08:14 Alkaline Phosphatase 154 Units/L (34-104) H 08/04/17 08:14 Serum Total Protein 7.4 g/dL (6.4-8.9) 08/04/17 08:14 Albumin 3.6 g/dL (3.5-5.7) 08/04/17 08:14 Globulin 3.8 g/dL (2.4-3.5) H 08/04/17 08:14 Albumin/Globulin Ratio 0.9 (1.1-2.2) L 08/04/17 08:14 Lipase 17 Units/L (11-82) 08/04/17 08:14 Urine Color Dark Yellow (Yellow) 08/04/17 08:08 Urine Clarity Clear (Clear) 08/04/17 08:08 Urine pH 5.5 pH Units (5.0-8.0) 08/04/17 08:08 Ur Specific [place] 1.016 (1.010-1.025) 08/04/17 08:08 Urine Protein Negative mg/dL (Neg-Trace) 08/04/17 08:08 Urine Glucose (UA) Normal mg/dL (Normal) 08/04/17 08:08 Urine Ketones Negative mg/dL (Negative) 08/04/17 08:08 Urine Blood Small (Negative) H 08/04/17 08:08 Urine Nitrite Negative (Negative) 08/04/17 08:08 Urine Bilirubin Negative (Negative) 08/04/17 08:08 Urine Urobilinogen Normal mg/dL (Normal) 08/04/17 08:08 Ur Leukocyte Esterase Negative (Negative) 08/04/17 08:08 Urine Microscopic RBC 3-5 per hpf (0-3) H 08/04/17 08:08 Urine Microscopic WBC 0-3 per hpf (0-3) 08/04/17 08:08 Ur Squamous Epith Cells Moderate per lpf (None-Few) H 08/04/17 08:08 Urine Bacteria None Seen per hpf (None-Few) 08/04/17 08:08 Hyaline Casts None Seen per lpf (None-Few) 08/04/17 08:08 Ur Culture Indicated? NO (NO) 08/04/17 08:08 Blood Type A POSITIVE 08/04/17 08:14 Antibody Screen NEGATIVE 08/04/17 08:14 Result diagrams: 08/04/17 08:14 08/04/17 08:14 Lab Results 08/04/17 08/04/17 08/04/17 Range/Units 08:08 08:14 08:14 WBC 7.2 (4.3-11.1) K/mcL RBC 4.77 (3.82-4.97) M/mcL Hgb 15.0 (11.5-15.4) g/dL Hct 44.8 (35.3-44.9) % MCV 93.9 (83.0-100.0) fL MCH 31.4 (28.0-33.3) pg MCHC 33.5 (31.6-35.5) g/dL RDW 13.1 (11.5-14.5) % Plt Count 76 L (140-400) K/mcL MPV 11.7 (9.4-12.4) fL Immature Gran % 0.3 (0-4) % Seg Neutrophils % 63.6 % Lymphocytes % 23.9 % Monocytes % 11.5 % Eosinophils % 0.3 % Basophils % 0.4 % Neutrophils # 4.6 (1.6-8.9) K/mcL Lymphocytes # 1.7 (0.6-4.6) K/mcL Monocytes # 0.8 (0.0-1.3) K/mcL Eosinophils # 0.0 (0.0-0.6) K/mcL Basophils # 0.0 (0.0-0.2) K/mcL Immature Plt Fraction 10.5 H (1.1-6.1) % Sodium 137 (136-145) mEq/L Potassium 4.0 (3.5-5.1) mEq/L Chloride 105 (98-107) mEq/L Carbon Dioxide 26 (23-29) mEq/L BUN 7 L (8-23) mg/dL Creatinine 0.72 (0.60-1.20) mg/dL Est GFR ( Amer) > 60 (> 60) Est GFR (Non-Af Amer) > 60 (> 60) BUN/Creatinine Ratio 10 (6-26) Glucose 112 H (70-105) mg/dL Calculated Osmolality 283 (280-300) Lactic Acid (0.5-2.2) mmol/L Calcium 9.7 (8.6-10.3) mg/dL Total Bilirubin 1.2 H (0.3-1.0) mg/dL Direct Bilirubin 0.3 H (0.0-0.2) mg/dL Indirect Bilirubin 0.9 (0.0-1.2) mg/dL AST 160 H (13-39) Units/L ALT 177 H (7-52) Units/L Alkaline Phosphatase 154 H (34-104) Units/L Serum Total Protein 7.4 (6.4-8.9) g/dL Albumin 3.6 (3.5-5.7) g/dL Globulin 3.8 H (2.4-3.5) g/dL Albumin/Globulin Ratio 0.9 L (1.1-2.2) Lipase 17 (11-82) Units/L Urine Color Dark Yellow (Yellow) Urine Clarity Clear (Clear) Urine pH 5.5 (5.0-8.0) pH Units Ur Specific [place] 1.016 (1.010-1.025) Urine Protein Negative (Neg-Trace) mg/dL Urine Glucose (UA) Normal (Normal) mg/dL Urine Ketones Negative (Negative) mg/dL Urine Blood Small H (Negative) Urine Nitrite Negative (Negative) Urine Bilirubin Negative (Negative) Urine Urobilinogen Normal (Normal) mg/dL Ur Leukocyte Esterase Negative (Negative) Urine Microscopic RBC 3-5 H (0-3) per hpf Urine Microscopic WBC 0-3 (0-3) per hpf Ur Squamous Epith Cells Moderate H (None-Few) per lpf Urine Bacteria None Seen (None-Few) per hpf Hyaline Casts None Seen (None-Few) per lpf Ur Culture Indicated? NO (NO) Blood Type Antibody Screen 08/04/17 08/04/17 Range/Units 08:14 08:14 WBC (4.3-11.1) K/mcL RBC (3.82-4.97) M/mcL Hgb (11.5-15.4) g/dL Hct (35.3-44.9) % MCV (83.0-100.0) fL MCH (28.0-33.3) pg MCHC (31.6-35.5) g/dL RDW (11.5-14.5) % Plt Count (140-400) K/mcL MPV (9.4-12.4) fL Immature Gran % (0-4) % Seg Neutrophils % % Lymphocytes % % Monocytes % % Eosinophils % % Basophils % % Neutrophils # (1.6-8.9) K/mcL Lymphocytes # (0.6-4.6) K/mcL Monocytes # (0.0-1.3) K/mcL Eosinophils # (0.0-0.6) K/mcL Basophils # (0.0-0.2) K/mcL Immature Plt Fraction (1.1-6.1) % Sodium (136-145) mEq/L Potassium (3.5-5.1) mEq/L Chloride (98-107) mEq/L Carbon Dioxide (23-29) mEq/L BUN (8-23) mg/dL Creatinine (0.60-1.20) mg/dL Est GFR ( Amer) (> 60) Est GFR (Non-Af Amer) (> 60) BUN/Creatinine Ratio (6-26) Glucose (70-105) mg/dL Calculated Osmolality (280-300) Lactic Acid 0.8 (0.5-2.2) mmol/L Calcium (8.6-10.3) mg/dL Total Bilirubin (0.3-1.0) mg/dL Direct Bilirubin (0.0-0.2) mg/dL Indirect Bilirubin (0.0-1.2) mg/dL AST (13-39) Units/L ALT (7-52) Units/L Alkaline Phosphatase (34-104) Units/L Serum Total Protein (6.4-8.9) g/dL Albumin (3.5-5.7) g/dL Globulin (2.4-3.5) g/dL Albumin/Globulin Ratio (1.1-2.2) Lipase (11-82) Units/L Urine Color (Yellow) Urine Clarity (Clear) Urine pH (5.0-8.0) pH Units Ur Specific [place] (1.010-1.025) Urine Protein (Neg-Trace) mg/dL Urine Glucose (UA) (Normal) mg/dL Urine Ketones (Negative) mg/dL Urine Blood (Negative) Urine Nitrite (Negative) Urine Bilirubin (Negative) Urine Urobilinogen (Normal) mg/dL Ur Leukocyte Esterase (Negative) Urine Microscopic RBC (0-3) per hpf Urine Microscopic WBC (0-3) per hpf Ur Squamous Epith Cells (None-Few) per lpf Urine Bacteria (None-Few) per hpf Hyaline Casts (None-Few) per lpf Ur Culture Indicated? (NO) Blood Type A POSITIVE Antibody Screen NEGATIVE - Radiology Data Radiology results reviewed: Yes I reviewed the patient's radiology results. Abdomen/Pelvis CT 08/04/17 08:07 IMPRESSION: Again identified is diverticulosis with pericolonic inflammatory changes seen involving the descending colon and sigmoid colon. There are also patchy areas of circumferential wall thickening seen in the colon in the region of the hepatic flexure, splenic flexure and elsewhere within the descending colon, some of which could be related to underdistention. Differential considerations include diverticulitis as well as colitis. Of note, there also appears to be underlying probable cirrhosis, with a small amount of free fluid in the pelvis. Some of the edematous changes within the mesentery can be seen in the setting of underlying liver disease. Cirrhosis suspected based on a small nodular appearing liver. Cholelithiasis is identified, with some gallbladder wall thickening which appear similar to the previous examination. This gallbladder wall thickening may be related to underlying cirrhosis as well. No perforation or abscess collection is identified. Benign appearing left renal cyst for which no further follow-up is felt necessary. Hysterectomy. D/ / 08/04/2017 09:34:42 Jerry Gayle MD / blaine Interpreting Provider: Jerry Gayle MD
--- NOTE | 2017-08-04 08:16 | Emergency Department Note ---
START Narrative - START START: I examined this patient and my medical decision-making was reviewed with the emergency medicine resident. I agree with the documented findings, disposition and treatment plan as described except to the extent set forth below. Patient seen with physician periodontal assistant Christine Grijalva, please see a copy of her note for details of the H&P, ED evaluation, management and disposition. I have independently evaluated the patient and confirmed appropriate portions of the history and physical exam. Briefly: 62-year-old female history of prior abdominal surgeries increasing pain and rectal bleeding. No prior history of hemorrhoids. Denies fevers or chills. Says she feels lightheaded but denies shortness breath or chest pain. Patient is tender with guarding but no rebound bilateral quadrants without distention slightly decreased bowel sounds. Patient is screening labs IV fluids anti-medics portable analgesics abdominal pelvic CT. Disposition pending
[2017-08-04 08:23] LABS: Basophils % 0.4 %; Eosinophils % 0.3 %; Hematocrit 44.8 % (35.3-44.9); Immature Granulocytes % 0.3 % (0-4); Immature Platelets 10.5 % (1.1-6.1); Lymphocytes # 1.7 K/mcL (0.6-4.6); Lymphocytes % 23.9 %; Mean Corpuscular HGB Conc 33.5 g/dL (31.6-35.5); Mean Corpuscular Hemoglobin 31.4 pg (28.0-33.3); Mean Corpuscular Volume 93.9 fL (83.0-100.0); Mean Platelet Volume 11.7 fL (9.4-12.4); Monocytes # 0.8 K/mcL (0.0-1.3); Monocytes % 11.5 %; Neutrophils # 4.6 K/mcL (1.6-8.9); Red Blood Count 4.77 M/mcL (3.82-4.97); Red Cell Distribution Width 13.1 % (11.5-14.5); Segmented Neutrophils % 63.6 %
[2017-08-04 08:25] LABS: Platelet Count 76 K/mcL (140-400)
[2017-08-04 08:34] LABS: Bilirubin,Urine Negative (Negative); Blood,Urine Small (Negative); Clarity,Urine Clear (Clear); Color,Urine Dark Yellow (Yellow); Glucose,Urine (UA) Normal (Normal); Ketones,Urine Negative (Negative); Leukocyte Esterase,Urine Negative (Negative); Nitrite,Urine Negative (Negative); PH,Urine 5.5 pH Units (5.0-8.0); Protein,Urine Negative (Neg-Trace); Specific Gravity,Urine 1.016 (1.010-1.025); Urobilinogen,Urine Normal (Normal)
[2017-08-04 08:36] LABS: Bacteria,Urine None Seen per hpf (None-Few); Hyaline Casts,Urine None Seen per lpf (None-Few); Squamous Epithelial Cell,Urine Moderate per lpf (None-Few); WBC,Urine 0-3 per hpf (0-3)
[2017-08-04 08:44] LABS: Alanine Aminotransferase 177 Units/L (7-52); Albumin 3.6 g/dL (3.5-5.7); Albumin/Globulin Ratio 0.9 (1.1-2.2); Alkaline Phosphatase 154 Units/L (34-104); Aspartate Amino Transferase 160 Units/L (13-39); BUN/Creatinine Ratio 10 (6-26); Bilirubin,Direct 0.3 mg/dL (0.0-0.2); Bilirubin,Indirect 0.9 mg/dL (0.0-1.2); Bilirubin,Total 1.2 mg/dL (0.3-1.0); Blood Urea Nitrogen 7 mg/dL (8-23); Calcium 9.7 mg/dL (8.6-10.3); Carbon Dioxide 26 mEq/L (23-29); Chloride 105 mEq/L (98-107); Globulin 3.8 g/dL (2.4-3.5); Glucose 112 mg/dL (70-105); Lipase 17 Units/L (11-82); Osmolality,Calculated 283 (280-300); Sodium 137 mEq/L (136-145); Total Protein 7.4 g/dL (6.4-8.9); eGFR For African Americans > 60 (> 60); eGFR For Non-African Americans > 60 (> 60)
[2017-08-04] MEDS ORDERED: MetroNIDAZOLE 500 MG/100 ML 500 MG/100 ML BAG IVPB ONE (10:52)
[2017-08-04] MEDS ORDERED: Naloxone 0.4 MG/ML INJ IVP PRN (11:11)
[2017-08-04] MEDS ORDERED: *HR* Promethazine 25 MG/ML VIAL IVP PRN (11:11)
[2017-08-04] MEDS ORDERED: Acetaminophen 325 MG TABLET PO PRN (11:11)
[2017-08-04] MEDS ORDERED: Ondansetron 4 MG/2 ML VIAL IVP PRN (11:11)
--- NOTE | 2017-08-04 11:48 | Internal Med History&Physical ---
Date of Encounter: 08/04/17 Time of Encounter: 11:20 Assessment and Plan (1) Acute diverticulitis Current visit: No Status: Acute Will place the pt into Med Surg for observation Reviewed her CT of abd showed acute diverticulitis Pt does have recurrent diverticulitis in 30 days Need to be evaluated by surgery Consulted surgery NPO for now IV hydration IV analgesic empirical abx Cipro and Flagyl (2) Bright red blood per rectum Current visit: Yes Status: Acute So far stable Hb cont close monitoring hB (3) Thrombocytopenia Current visit: No Status: Acute Chronic and Stable now mostly due to Hep C (4) Hepatitis C Current visit: No Status: Chronic Qualifiers: Viral hepatitis chronicity: chronic Hepatic coma status: without hepatic coma Qualified Code(s): B18.2 - Chronic viral hepatitis C Internal Medicine - H&P: HPI Chief complaint: Abdominal pain Admitted From: Emergency Dept Plans for Post Hospital Care: Home History of present illness: Ms. Jessica is a 62 year old female with a known past medical history of hypertension, chronic tobacco dependence who was recently admitted here on 06/27 with acute abdominal pain due to diverticulitis, after the patient had been followed with the surgery and had outpatient colonoscopy on 07/28/2017 patient presented to the emergency room now complaining about from last 4 days she has been having worsening lower abdominal pain more significant on left side associated with nausea no vomiting. She also mentioned about blood red blood in stool couple of times since yesterday. She denied any chest pain or shortness of breath. Her CT abdomen and pelvis showed acute diverticulitis again. Past Med Surg Social Fam HX - Past Medical History Medical history: COPD, CVA, GERD, hyperlipidemia, hypertension, other (gal stones) Psychiatric history: depression - Past Surgical History Surgical History: angioplasty/stent, cataract, hysterectomy, other - Social History Smoking Status: Current every day smoker Smokeless Tobacco Status: No Alcohol use: none Drug use: none - Family History Father Hx Family Cardiac Disorders: Yes Internal Medicine - H&P: Meds Diltiazem CD (24hr) [Cardizem CD] 180 mg PO DAILY 06/27/17 [History] Famotidine [Pepcid] 40 mg PO DAILY 06/27/17 [History] Ondansetron HCl [Ondansetron HCl] 2 tab PO DAILY 07/28/17 [History] 3 Allergy/AdvReac Type Severity Reaction Status Date / Time niacin Allergy Flushing Verified 08/04/17 07:38 Penicillins [PCN] Allergy Rash Verified 08/04/17 07:38 duracef Allergy See Uncoded 08/04/17 07:38 Comments All Systems PM: A 10-system review of systems was performed and is negative for pertinent findings except as documented above in the HPI. Review of systems: All the systems are reviewed everything is benign except the systems and symptoms I mentioned in the history of present illness - Constitutional Vitals: Temp Pulse Resp BP Pulse Ox 98.9 F 72 16 107/88 97 08/04/17 07:38 08/04/17 11:36 08/04/17 11:41 08/04/17 11:41 08/04/17 11:36 General appearance: Present: cooperative, mild distress (With abdominal pain), A &O X 3, answers questions appropriately - Head Head exam: Present: atraumatic, normal inspection - Neck Neck exam general surgery: Present: supple - Respiratory Respiratory exam: Present: decreased breath sounds. Absent: rales, respiratory distress, rhonchi, wheezes - Cardiovascular Cardiovascular exam: Present: +S1, +S2. Absent: tachycardia - GI/Abdominal GI/Abdominal exam: Present: normal bowel sounds, soft, tenderness (Lower abdomen ). Absent: diminished bowel sounds, guarding, rebound, rigid - Extremities Exam Extremities exam: Absent: calf tenderness, pedal edema, tenderness - Back Exam Back exam: Absent: CVA tenderness (L), CVA tenderness (R) - Neurological Exam Neurological exam: Present: alert, oriented X3 - Psychiatric Psychiatric exam: Present: normal affect, normal mood - Skin Skin exam: Absent: rash Internal Med - H&P Results - Labs CBC & Chem 7: 08/04/17 08:14 08/04/17 08:14
[2017-08-04] MEDS: *HR* FentaNYL (PF) 100 MCG/2 ML VIAL IVP PRN ×3 (12:41→20:37)
[2017-08-04] MEDS: Diltiazem CD (24hr) 180 MG CAPSULE PO SCH (12:51)
[2017-08-04] MEDS: MetroNIDAZOLE 500 MG/100 ML 500 MG/100 ML BAG IVPB SCH ×2 (12:56→23:00)
[2017-08-04] MEDS: D5% in 0.45% NACL 1,000 ML IVC SCH (13:52)
--- NOTE | 2017-08-04 15:41 | General Surgery Consult Note ---
Date of Encounter: 08/04/17 Time of Encounter: 12:30 Assessment and Plan (1) Acute diverticulitis Current Visit: Yes Status: Acute 62F with recurrence of acute diverticulitis; NPO IVF abx activity as tolerated at this point, I will discuss with the patient about the need for surgery. If done while here in the inpatient setting, she will likely get a colostomy. If we are able to get her through this episode and see me in the office, thereby giving the inflammation time to settle, we can schedule it and likely avoid a colostomy. History of Present Illness Consult date: 08/04/17 Reason for consult: abdominal pain History of present illness: 62F well known to me with prior history of diverticulitis requiring hospitalization. She was recently scoped which confirmed diverticulosis. She also stated that she was able to complete her antibiotics, but the pain never went away, and, as of the last four days has experienced recurrence of symptoms. her symptoms are localized to the LLQ and suprapubic region. No reports of fevers, chills, nor vomiting. The patient does report decreased PO intake. She presents to [facility] for further evaluation and surgery consulted for management recommendations. In addition she also reports recent blood bowel movements. Past Med Surg Social Fam HX - Past Medical History Medical history: COPD, CVA, GERD, hyperlipidemia, hypertension, other (gal stones) Psychiatric history: depression - Past Surgical History Surgical History: angioplasty/stent, cataract, hysterectomy, other - Social History Smoking Status: Current every day smoker Smokeless Tobacco Status: No Alcohol use: none Drug use: none - Family History Father History Unknown: Yes Hx Family Cardiac Disorders: Yes Medications and Allergies Diltiazem CD (24hr) [Cardizem CD] 180 mg PO DAILY 06/27/17 [History] Famotidine [Pepcid] 40 mg PO DAILY 06/27/17 [History] Ondansetron HCl [Ondansetron HCl] 2 tab PO DAILY 07/28/17 [History] 3 Allergy/AdvReac Type Severity Reaction Status Date / Time niacin Allergy Flushing Verified 08/04/17 07:38 Penicillins [PCN] Allergy Rash Verified 08/04/17 07:38 duracef Allergy See Uncoded 08/04/17 07:38 Comments Review of Systems All systems PM: The remainder of the systems were reviewed and are negative General Surgery Exam Initial Vital Signs Temp Pulse Resp BP Pulse Ox 98.9 F 87 18 142/84 97 08/04/17 07:38 08/04/17 07:38 08/04/17 07:38 08/04/17 07:38 08/04/17 07:38 - General physical appearance well developed, no distress - Eyes normal ocular movement - ENT normocephalic - Neck no lymphadectomy - Respiratory normal expansion, normal respiratory effort - Cardiovascular Cardiovascular exam: Present: RRR - Abdomen Abdomen general surgery: Present: soft, tender Abdominal Tenderness: Present: LLQ, suprapubic - Integumentary Integumentary general surgery: Present: warm and dry - Neurologic Present: CN 2-12 grossly intact - Psychiatric Psychiatric general surgery: Present: A&Ox3 Exam Initial Vital Signs Temp Pulse Resp BP Pulse Ox 98.9 F 87 18 142/84 97 08/04/17 07:38 08/04/17 07:38 08/04/17 07:38 08/04/17 07:38 08/04/17 07:38 Results - Labs 08/04/17 08:14 08/04/17 08:14 Abnormal lab results Plt Count 76 K/mcL (140-400) L 08/04/17 08:14 Immature Plt Fraction 10.5 % (1.1-6.1) H 08/04/17 08:14 BUN 7 mg/dL (8-23) L 08/04/17 08:14 Glucose 112 mg/dL (70-105) H 08/04/17 08:14 Total Bilirubin 1.2 mg/dL (0.3-1.0) H 08/04/17 08:14 Direct Bilirubin 0.3 mg/dL (0.0-0.2) H 08/04/17 08:14 AST 160 Units/L (13-39) H 08/04/17 08:14 ALT 177 Units/L (7-52) H 08/04/17 08:14 Alkaline Phosphatase 154 Units/L (34-104) H 08/04/17 08:14 Globulin 3.8 g/dL (2.4-3.5) H 08/04/17 08:14 Albumin/Globulin Ratio 0.9 (1.1-2.2) L 08/04/17 08:14 Urine Blood Small (Negative) H 08/04/17 08:08 Urine Microscopic RBC 3-5 per hpf (0-3) H 08/04/17 08:08 Ur Squamous Epith Cells Moderate per lpf (None-Few) H 08/04/17 08:08 All other labs normal. - Imaging CT scan - abdomen: report reviewed, image reviewed CT scan - pelvis: report reviewed, image reviewed Consult Discharge Plan - Plan Referrals: Ghanshyam Taylor [Primary Care Provider] -
[2017-08-04] MEDS ORDERED: MetroNIDAZOLE 500 MG/100 ML 500 MG/100 ML BAG IVPB SCH (16:00)
[2017-08-04 18:01] LABS: Hematocrit 36.8 % (35.3-44.9)
[2017-08-04 18:03] LABS: Hemoglobin 12.4 g/dL (11.5-15.4)
[2017-08-05] MEDS: D5% in 0.45% NACL 1,000 ML IVC SCH (00:34)
[2017-08-05] MEDS: *HR* FentaNYL (PF) 100 MCG/2 ML VIAL IVP PRN ×4 (01:31→12:32)
[2017-08-05] MEDS: MetroNIDAZOLE 500 MG/100 ML 500 MG/100 ML BAG IVPB SCH ×3 (05:06→21:26)
[2017-08-05 05:30] LABS: Mean Corpuscular Volume 95.1 fL (83.0-100.0); Nucleated Red Blood Cells 0.5 /100 WBC (0)
[2017-08-05 05:31] LABS: Basophils % 0.8 %; Eosinophils # 0.1 K/mcL (0.0-0.6); Eosinophils % 1.8 %; Hematocrit 36.7 % (35.3-44.9); Hemoglobin 12.2 g/dL (11.5-15.4); Immature Granulocytes % 0.3 % (0-4); Lymphocytes # 1.3 K/mcL (0.6-4.6); Lymphocytes % 32.8 %; Mean Corpuscular HGB Conc 33.2 g/dL (31.6-35.5); Mean Corpuscular Hemoglobin 31.6 pg (28.0-33.3); Mean Platelet Volume 12.1 fL (9.4-12.4); Monocytes # 0.5 K/mcL (0.0-1.3); Monocytes % 14.1 %; Neutrophils # 1.9 K/mcL (1.6-8.9); Red Blood Count 3.86 M/mcL (3.82-4.97); Segmented Neutrophils % 50.2 %
[2017-08-05 05:32] LABS: Platelet Count 57 K/mcL (140-400)
[2017-08-05 05:41] LABS: BUN/Creatinine Ratio 8 (6-26); Blood Urea Nitrogen 5 mg/dL (8-23); Calcium 8.8 mg/dL (8.6-10.3); Carbon Dioxide 26 mEq/L (23-29); Chloride 110 mEq/L (98-107); Glucose 120 mg/dL (70-105); Osmolality,Calculated 288 (280-300); Potassium 3.3 mEq/L (3.5-5.1); Sodium 140 mEq/L (136-145); eGFR For African Americans > 60 (> 60); eGFR For Non-African Americans > 60 (> 60)
[2017-08-05] MEDS ORDERED: *HR* Enoxaparin 40 MG/0.4 ML SYRINGE SQ SCH (06:00)
[2017-08-05] MEDS: Diltiazem CD (24hr) 180 MG CAPSULE PO SCH (08:44)
--- NOTE | 2017-08-05 10:13 | General Surgery Progress Note ---
<Alicia Jarrell H - Last Filed: 08/05/17 10:29> Date of Encounter: 08/05/17 Time of Encounter: 10:10 - Assessment and Plan (1) Acute diverticulitis Status: Acute 62-year-old female with recurrence of acute diverticulitis. -Patient complaining of hunger. Clinical exam has improved. Will advance to clear liquid diet. -IV antibiotics -Pain control -Increase activity as tolerated. -As patient appears to be improving clinically, we will start a diet. Per Dr. Frazier, if patient requires surgery in the inpatient setting, she will likely need a colostomy. The plan is to manage her conservatively to get her through this episode, giving the inflammation time to settle, therefore enabling her to have surgery scheduled and thus avoid a colostomy. Subjective Patient reports: no new complaints, feels better, still having pain, voiding w/ o difficulty, no flatus, bowel movement (Diarrhea last night.), diarrhea, afebrile Objective Vital Signs - Last 8 Hours Temp Pulse Resp BP Pulse Ox 08/05/17 06:45 98.0 F 53 16 114/67 98 08/05/17 04:44 98.0 F 61 14 126/85 100 Intake and Output 08/04/17 08/05/17 08/05/17 23:59 07:59 15:59 Intake Total 1200 / 1200 100 / 100 Output Total 0 / 0 0 / 0 Balance 1200 / 1200 100 / 100 Intake: IV Fluids 1200 / 1200 100 / 100 D5% And 0.45% Nacl 1000 Ml Bag 1000 / 1000 1,000 ML @ 125 mls/hr IVC .Q8H [facility]NA Rx#:[id number] Cipro Premix 400 MG/200 ML 400 200 / 200 mg In 200 ml @ 200 mls/hr IVPB Q12HR MARIANA Rx#:[id number] Flagyl Premix 500 MG/100 ML 500 100 / 100 mg In 100 ml @ 100 mls/hr IVPB Q8H [facility]IANA Rx#:[id number] Oral 0 / 0 0 / 0 Output: Urine 0 / 0 0 / 0 Other: Meal NPO NPO Percent of Meal Consumed 0% # Voids 1 Weight 52.61 kg Blood Glucose* 89 Patient Weight 08/05/17 23:59 Weight 52.61 kg - General physical appearance well developed, no distress - Eyes normal ocular movement - Neck Neck exam: trachea midline - Respiratory normal expansion, normal respiratory effort, clear to percussion, clear to auscultation - Cardiovascular Cardiovascular exam: Present: RRR, no murmurs/rubs/gallops - Abdomen Abdomen: Present: bowel sounds present, soft, tender (mild TTP in LLQ). Absent : guarding, rebound, rigid Hernia: none - Neurologic CN 2-12 grossly intact, normal coordination, normal sensation - Psychiatric oriented to time, oriented to person, oriented to place, speech is normal, memory intact - Labs 08/05/17 04:44 08/05/17 04:44 Diabetes panel 08/05/17 Range/Units 04:44 Sodium 140 (136-145) mEq/L Potassium 3.3 L (3.5-5.1) mEq/L Chloride 110 H (98-107) mEq/L Carbon Dioxide 26 (23-29) mEq/L BUN 5 L (8-23) mg/dL Creatinine 0.63 (0.60-1.20) mg/dL Glucose 120 H (70-105) mg/dL Calcium 8.8 (8.6-10.3) mg/dL Calcium panel 08/05/17 Range/Units 04:44 Calcium 8.8 (8.6-10.3) mg/dL Pituitary panel 08/05/17 Range/Units 04:44 Sodium 140 (136-145) mEq/L Potassium 3.3 L (3.5-5.1) mEq/L Chloride 110 H (98-107) mEq/L Carbon Dioxide 26 (23-29) mEq/L BUN 5 L (8-23) mg/dL Creatinine 0.63 (0.60-1.20) mg/dL Glucose 120 H (70-105) mg/dL Calcium 8.8 (8.6-10.3) mg/dL Adrenal panel 08/05/17 Range/Units 04:44 Sodium 140 (136-145) mEq/L Potassium 3.3 L (3.5-5.1) mEq/L Chloride 110 H (98-107) mEq/L Carbon Dioxide 26 (23-29) mEq/L BUN 5 L (8-23) mg/dL Creatinine 0.63 (0.60-1.20) mg/dL Glucose 120 H (70-105) mg/dL Calcium 8.8 (8.6-10.3) mg/dL - VTE Documentation of Mechanical Device: Intermittent pneumatic compression device Consult Discharge Plan - Plan Instructions: Diverticulitis (DC), Diverticulitis (GEN), Diverticulitis Diet ( GEN) Referrals: Rafita Frazier MD [Non-Partnered Physician] - 08/17/17 9:00 am Ghanshyam Taylor [Primary Care Provider] - Prescriptions: HYDROcodone/Acet 5/325 mg [[place] 5-325 mg] 1 tab PO Q6HR PRN 5 Days #10 tablet PRN Reason: Pain Ciprofloxacin HCl [Cipro] 500 mg PO BID #20 tablet metroNIDAZOLE [Flagyl] 500 mg PO TID #30 tablet <Rafita Frazier - Last Filed: 08/08/17 08:20> Date of Encounter: 08/08/17 - Assessment and Plan (1) Acute diverticulitis Status: Acute Objective - Labs 08/05/17 04:44 08/06/17 03:03 - Attending Attestation I have personally seen and examined the patient. I have reviewed pertinent labs , imaging, progress notes, including this one. I agree with the above assessment and plan and wish to include the following... 62F with recurrent diverticulitis, no complications from diverticulitis; once she resolves this episode she is okay for discharge from surgery standpoint. Will follow up in clinic and plan for surgery at that time
--- NOTE | 2017-08-05 11:48 | Event Note ---
Date of Encounter: 08/05/17 Time of Encounter: 11:47 - Patient Status Disposition: Home, Self-Care Condition: Good Functional capacity at discharge: independent ambulation Overall status at discharge: patient is progressing back to baseline - Discharge Instructions Instructions: Diverticulitis Diet (GEN) Follow Up With: Ghanshyam Taylor [Primary Care Provider] - Rafita Frazier MD [Non-Partnered Physician] - 08/17/17 9:00 am - Diet and Activity Activity: increase activity as tolerated Diet: other ([place] fiber diet)
--- NOTE | 2017-08-05 16:58 | Internal Med Progress Note ---
Date of Encounter: 08/05/17 Time of Encounter: 09:40 - Assessment and plan (1) Acute diverticulitis Current Visit: Yes Status: Acute Assessment and plan: CT ABDOMEN showed cirrhosis, colitis vs diverticulitis. Continue IV antibiotics - Ciprofloxacin and Flagyl, IV hydration, pain control with PRN IV Fentanyl and PO Percocet; Surgery consult appreciated; started clear liquid diet, advance as tolerated; patient may not require urgent surgical intervention at this time of she continues to improve; Repeat CT abdomen shows possible colitis mostly in descending and sigmoid colon; (2) Essential hypertension Current Visit: Yes Status: Chronic Assessment and plan: BP well-controlled; continue home meds; (3) Bright red blood per rectum Current Visit: Yes Status: Acute Assessment and plan: likely related to colitis; will send stool GI panel if continues to have diarrhea; monitor Hb closely; (4) Thrombocytopenia Current Visit: Yes Status: Chronic Assessment and plan: due to cirrhosis; stable; (5) Tobacco abuse Current Visit: Yes Status: Chronic (6) Hepatitis C Current Visit: Yes Status: Chronic Qualifiers: Viral hepatitis chronicity: chronic Hepatic coma status: without hepatic coma Qualified Code(s): B18.2 - Chronic viral hepatitis C - Subjective Interval history: Reports improvement in abdominal pain but continues to require IV pain meds; reports diarrhea; no nausea/vomiting; reports did not take uninterrupted antibiotic course after her recent hospital discharge, for diverticulitis, due to intolerance and GI distress. - Constitutional Vitals: Temp Pulse Resp BP Pulse Ox 99.0 F 67 14 131/78 98 08/05/17 15:54 08/05/17 15:54 08/05/17 15:54 08/05/17 15:54 08/05/17 15:54 General appearance: Present: cooperative, A&O X 3, answers questions appropriately - Respiratory Respiratory exam: Present: CTAB. Absent: accessory muscle use, rales, rhonchi, wheezes - Cardiovascular Cardiovascular exam: Present: RRR, +S1, +S2. Absent: diastolic murmur, gallop, rubs, systolic murmur - GI/Abdominal GI/Abdominal exam: Present: distended, normal bowel sounds, soft (mild tenderness in LLQ), no peritoneal signs. Absent: tenderness - Extremities Exam Extremities exam: Present: warm, radial pulses palpable and symmetrical. Absent : calf tenderness, cyanotic, pedal edema - Neurological Exam Neurological exam: Present: CN II-XII intact, oriented X3, no focal deficits. Absent: pronater drift, facial droop, speech deficit Internal Medicine: Result - Labs CBC & Chem 7: 08/05/17 04:44 08/05/17 04:44 - VTE Documentation of Mechanical Device: Intermittent pneumatic compression device Consult Discharge Plan - Plan Instructions: Diverticulitis Diet (GEN) Referrals: Rafita Frazier MD [Non-Partnered Physician] - 08/17/17 9:00 am Ghanshyam Taylor [Primary Care Provider] -
[2017-08-05] MEDS: *HR* HYDROcodone/Acet 5/325 mg TABLET PO PRN (18:32)
[2017-08-06] MEDS: *HR* HYDROcodone/Acet 5/325 mg TABLET PO PRN (01:43)
[2017-08-06 04:00] LABS: BUN/Creatinine Ratio 10 (6-26); Blood Urea Nitrogen 7 mg/dL (8-23); Calcium 8.8 mg/dL (8.6-10.3); Carbon Dioxide 24 mEq/L (23-29); Chloride 108 mEq/L (98-107); Glucose 98 mg/dL (70-105); Magnesium 1.7 mg/dL (1.6-2.6); Osmolality,Calculated 282 (280-300); Sodium 137 mEq/L (136-145); eGFR For African Americans > 60 (> 60); eGFR For Non-African Americans > 60 (> 60)
[2017-08-06] MEDS: MetroNIDAZOLE 500 MG/100 ML 500 MG/100 ML BAG IVPB SCH (04:46)
[2017-08-06 07:25] VITALS: BP 118/72
[2017-08-06] MEDS: Diltiazem CD (24hr) 180 MG CAPSULE PO SCH (07:57)
--- NOTE | 2017-08-06 09:56 | Discharge Summary ---
Date of Encounter: 08/06/17 Time of Encounter: 09:53 - Discharge Diagnosis (1) Acute diverticulitis Priority: Primary Status: Acute (2) Essential hypertension Priority: Secondary Status: Chronic (3) Bright red blood per rectum Priority: Primary Status: Resolved (4) Thrombocytopenia Priority: Secondary Status: Chronic (5) Tobacco abuse Priority: Secondary Status: Chronic (6) Hepatitis C Priority: Secondary Status: Chronic Qualifiers: Viral hepatitis chronicity: chronic Hepatic coma status: without hepatic coma Qualified Code(s): B18.2 - Chronic viral hepatitis C Hospital course: Ms. Jessica is a 62 year old female who was admitted with left lower abdominal pain. She was recently discharged last month after being treated for diverticulitis. CT abdomen/pelvis showed diverticulosis with inflammatory changes in descending colon and sigmoid colon. She was started on medical management with IV antibiotics-ciprofloxacin and Flagyl, bowel rest, IV hydration and when necessary antiemetics, pain control with IV narcotics. Surgery was consulted due to recurrent episodes of diverticulitis. Patient was being followed in surgery clinic prior to this admission, underwent colonoscopy on 07/28/2017, noted to have significant diverticulosis and nonbleeding polyps. She was explained about possibly needing a colostomy if planned for colon resection while inpatient. Patient was noted to be improving, tolerating oral diet, and hence is recommended outpatient f/up. SHe is medically stable for discharge on PO antibiotics. SHe was also encouraged to complete her antibiotic course while using PRN Zofran for nausea, as she claimed she did not take the previous course as prescribed. Discharge discussed with: patient - Time Spent with Patient Total time spent providing and/or coordinating discharge services: Greater than 30 minutes (40 min) - Discharge Medications Prescriptions: HYDROcodone/Acet 5/325 mg [[place] 5-325 mg] 1 tab PO Q6HR PRN 5 Days #10 tablet PRN Reason: Pain Ciprofloxacin HCl [Cipro] 500 mg PO BID #20 tablet metroNIDAZOLE [Flagyl] 500 mg PO TID #30 tablet Home Medications: Diltiazem CD (24hr) [Cardizem CD] 180 mg PO DAILY 06/27/17 [History] Famotidine [Pepcid] 40 mg PO DAILY 06/27/17 [History] Ondansetron HCl 2 tab PO DAILY 07/28/17 [History] Ciprofloxacin HCl [Cipro] 500 mg PO BID #20 tablet 08/06/17 [Rx] HYDROcodone/Acet 5/325 mg [[place] 5-325 mg] 1 tab PO Q6HR PRN 5 Days #10 tablet 08/06/17 [Rx] metroNIDAZOLE [Flagyl] 500 mg PO TID #30 tablet 08/06/17 [Rx] Allergies/Adverse Reactions: 3 Allergy/AdvReac Type Severity Reaction Status Date / Time niacin Allergy Flushing Verified 08/04/17 07:38 Penicillins [PCN] Allergy Rash Verified 08/04/17 07:38 duracef Allergy See Uncoded 08/04/17 07:38 Comments Date of admission: 08/05/17 15:04 Primary care physician: Ghanshyam Taylor Discharging clinician: Franca Leach Anticipated date of discharge: 08/06/17 - Constitutional Vitals: Temp Pulse Resp BP Pulse Ox 97.8 F 51 14 118/72 97 08/06/17 07:22 08/06/17 07:22 08/06/17 07:22 08/06/17 07:22 08/06/17 07:22 General appearance: Present: cooperative, A&O X 3, answers questions appropriately - Cardiovascular Cardiovascular exam: Present: RRR, +S1, +S2. Absent: diastolic murmur, gallop, rubs, systolic murmur - Patient Status Disposition: Home, Self-Care Condition: Good Functional capacity at discharge: independent ambulation Overall status at discharge: patient is progressing back to baseline - Discharge Instructions Instructions: Diverticulitis (DC), Diverticulitis (GEN), Diverticulitis Diet ( GEN) Follow Up With: Rafita Frazier MD [Non-Partnered Physician] - 08/17/17 9:00 am Ghanshyam Taylor [Primary Care Provider] - - Diet and Activity Activity: resume usual activities as tolerated Diet: other (diverticulitis diet) - VTE Documentation of Mechanical Device: Intermittent pneumatic compression device
== END 2017-08-06 11:10 | disposition home or self-care (01) | DRG 244 ==
LOC: EMEROO 07:35 → INTOOBSV 11:20 → 3ANU 11:20
PROVIDERS: ADMIT Family Medicine; ATTEND Internal Medicine

== ENCOUNTER 2017-08-21 09:12 | Observation (INO) ==
[2017-08-21] MEDS ORDERED: Ondansetron 4 MG/2 ML VIAL IVP ONE (09:33)
[2017-08-21] MEDS ORDERED: 0.9 % Sodium Chloride 1,000 ML IVC ONE (09:33)
--- NOTE | 2017-08-21 09:47 | Emergency Department Note ---
Disposition Clinical Impression: Diverticulitis Disposition: Admitted As Inpatient Condition: Fair Time of Disposition: 12:04 Abdominal Pain HPI - General Chief Complaint: ED Abdominal Pain Stated Complaint: ABD Pain Time Seen by Provider: 08/21/17 09:16 Source: patient, family Mode of arrival: ambulatory Limitations: no limitations Nursing Notes Reviewed: Yes Vital Signs Reviewed: Yes - History of Present Illness HPI Narrative: Patient is a 62-year-old female who presents to [facility] with chief complaint of abdominal pain. Patient has been admitted twice this year for diverticulitis. She has been on multiple rounds of ciprofloxacin and Flagyl. States she is still on antibiotics but is having worsening pain again. Admits to some nausea , no vomiting. Admits to having fevers last night. Denies any chest pain, difficulty breathing, problems with urination. States her bowel movements have been diarrhea with some blood at times. Patient states she has been evaluated by the surgeon Dr. Frazier both in the hospital and on an outpatient basis most recently last week. States she is not sure why they are holding off on surgery. Pt Subjective Complaint: abdominal pain Onset (ago): month(s) Consistency: Worsening Location: diffuse Pain Severity: moderate Pain Scale: 10 Quality: aching Radiation: none Migration to: no migration Improves with: nothing Worsens with: nothing Associated symptoms: Reports: nausea, diarrhea, fever, chills. Denies: vomiting , constipation, dysuria Treatments prior to arrival: none - Related Data Home Medications Medication Instructions Recorded Confirmed Diltiazem CD (24hr) [Cardizem CD] 180 mg PO DAILY 06/27/17 08/21/17 Famotidine [Pepcid] 40 mg PO DAILY 06/27/17 08/21/17 Allergies Allergy/AdvReac Type Severity Reaction Status Date / Time niacin Allergy Flushing Verified 08/21/17 12:34 Penicillins [PCN] Allergy Rash Verified 08/21/17 12:34 duracef Allergy See Uncoded 08/21/17 12:34 Comments All systems ED: reviewed and negative except as stated. Abdominal Pain PMH - Past Medical History Medical history: Reports: COPD, CVA, GERD, hyperlipidemia, hypertension, other Female Surgical History: Reports: other Psychiatric history: Reports: depression - Social History Smoking status: Current every day smoker Alcohol use: Reports: none Drug use: Reports: none Physical Exam - General Limitations: no limitations General appearance: alert, in no apparent distress - Head Head exam: atraumatic, normocephalic, normal inspection - Eye Eye exam: Present: normal appearance, EOMI - ENT ENT exam: normal exam, normal oropharynx, mucous membranes moist - Neck Neck exam: Present: normal inspection, full ROM, trachea midline - Chest Chest inspection: Present: normal inspection, symmetric chest wall rise - Respiratory Respiratory exam: Present: normal lung sounds bilaterally - Cardiovascular Cardiovascular exam: Present: regular rate, normal rhythm, normal heart sounds - Abdominal Exam Abdominal exam: Present: soft, tenderness, normal bowel sounds Abdominal tenderness: Present: diffuse, moderate - Rectal Exam General Freight Agent present during exam: Yes Rectal exam: Present: normal rectal tone, heme (+) stool (trace) - Extremities Exam Extremities exam: Present: normal inspection, full ROM. Absent: tenderness, pedal edema - Back Exam Back exam: Present: normal inspection, full ROM. Absent: tenderness - Neurological Exam Neurological exam: Present: alert, oriented X3 - Psychiatric Psychiatric exam: Present: normal affect, normal mood - Skin Skin exam: Present: warm, dry, intact, normal color Course Course Narrative: Patient seen and examined. Abdominal pain with recurrent diverticulitis. Lab work, CT abdomen and pelvis with IV and oral contrast ordered. We will likely admit. - Reevaluation(s) Reevaluation #1: Labwork, imaging improved from the last time she was here. However since she is still very symptomatic and states the pain is worsening again, we will go ahead and admit for surgical evaluation. Will give a dose of cipro, flagyl IV. I discussed with surgeon Dr. Ozuna who will see the patient in consult. Patient hospitalist for admission. Time: 12:03 Vital Signs Temperature 98.1 F 08/21/17 09:13 Pulse Rate 95 08/21/17 09:13 Respiratory Rate 16 08/21/17 09:13 Blood Pressure 142/86 08/21/17 09:13 O2 Sat by Pulse Oximetry 98 08/21/17 09:13 Temperature 98.1 F 08/21/17 09:13 Pulse Rate 65 08/21/17 12:37 Respiratory Rate 18 08/21/17 12:37 Blood Pressure 128/75 08/21/17 12:37 O2 Sat by Pulse Oximetry 98 08/21/17 12:23 Oxygen Delivery Oxygen Delivery Room Air Abdominal Pain - Medical Records Medical records reviewed: Yes I reviewed the patient's medical records. - Lab Data Lab results reviewed: Yes I reviewed the patient's lab results. Result diagrams: 08/21/17 09:45 08/21/17 09:45 Lab Results 08/21/17 08/21/17 08/21/17 Range/Units 09:45 09:45 09:45 WBC 7.5 (4.3-11.1) K/mcL RBC 4.20 (3.82-4.97) M/mcL Hgb 13.4 (11.5-15.4) g/dL Hct 39.8 (35.3-44.9) % MCV 94.8 (83.0-100.0) fL MCH 31.9 (28.0-33.3) pg MCHC 33.7 (31.6-35.5) g/dL RDW 13.3 (11.5-14.5) % Plt Count 68 L (140-400) K/mcL MPV 12.4 (9.4-12.4) fL Immature Gran % 0.3 (0-4) % Seg Neutrophils % 68.6 % Lymphocytes % 18.4 % Monocytes % 12.1 % Eosinophils % 0.1 % Basophils % 0.5 % Neutrophils # 5.2 (1.6-8.9) K/mcL Lymphocytes # 1.4 (0.6-4.6) K/mcL Monocytes # 0.9 (0.0-1.3) K/mcL Eosinophils # 0.0 (0.0-0.6) K/mcL Basophils # 0.0 (0.0-0.2) K/mcL Sodium 137 (136-145) mEq/L Potassium 3.9 (3.5-5.1) mEq/L Chloride 108 H (98-107) mEq/L Carbon Dioxide 25 (23-29) mEq/L BUN 12 (8-23) mg/dL Creatinine 0.79 (0.60-1.20) mg/dL Est GFR ( Amer) > 60 (> 60) Est GFR (Non-Af Amer) > 60 (> 60) BUN/Creatinine Ratio 15 (6-26) Glucose 112 H (70-105) mg/dL Calculated Osmolality 285 (280-300) Lactic Acid 0.8 (0.5-2.2) mmol/L Calcium 9.5 (8.6-10.3) mg/dL Total Bilirubin 1.2 H (0.3-1.0) mg/dL Direct Bilirubin 0.4 H (0.0-0.2) mg/dL Indirect Bilirubin 0.8 (0.0-1.2) mg/dL AST 263 H (13-39) Units/L ALT 177 H (7-52) Units/L Alkaline Phosphatase 167 H (34-104) Units/L Serum Total Protein 7.1 (6.4-8.9) g/dL Albumin 3.3 L (3.5-5.7) g/dL Globulin 3.8 H (2.4-3.5) g/dL Albumin/Globulin Ratio 0.9 L (1.1-2.2) Lipase 22 (11-82) Units/L Urine Color (Yellow) Urine Clarity (Clear) Urine pH (5.0-8.0) pH Units Ur Specific [place] (1.010-1.025) Urine Protein (Neg-Trace) mg/dL Urine Glucose (UA) (Normal) mg/dL Urine Ketones (Negative) mg/dL Urine Blood (Negative) Urine Nitrite (Negative) Urine Bilirubin (Negative) Urine Urobilinogen (Normal) mg/dL Ur Leukocyte Esterase (Negative) Ur Culture Indicated? (NO) 08/21/17 Range/Units 10:17 WBC (4.3-11.1) K/mcL RBC (3.82-4.97) M/mcL Hgb (11.5-15.4) g/dL Hct (35.3-44.9) % MCV (83.0-100.0) fL MCH (28.0-33.3) pg MCHC (31.6-35.5) g/dL RDW (11.5-14.5) % Plt Count (140-400) K/mcL MPV (9.4-12.4) fL Immature Gran % (0-4) % Seg Neutrophils % % Lymphocytes % % Monocytes % % Eosinophils % % Basophils % % Neutrophils # (1.6-8.9) K/mcL Lymphocytes # (0.6-4.6) K/mcL Monocytes # (0.0-1.3) K/mcL Eosinophils # (0.0-0.6) K/mcL Basophils # (0.0-0.2) K/mcL Sodium (136-145) mEq/L Potassium (3.5-5.1) mEq/L Chloride (98-107) mEq/L Carbon Dioxide (23-29) mEq/L BUN (8-23) mg/dL Creatinine (0.60-1.20) mg/dL Est GFR ( Amer) (> 60) Est GFR (Non-Af Amer) (> 60) BUN/Creatinine Ratio (6-26) Glucose (70-105) mg/dL Calculated Osmolality (280-300) Lactic Acid (0.5-2.2) mmol/L Calcium (8.6-10.3) mg/dL Total Bilirubin (0.3-1.0) mg/dL Direct Bilirubin (0.0-0.2) mg/dL Indirect Bilirubin (0.0-1.2) mg/dL AST (13-39) Units/L ALT (7-52) Units/L Alkaline Phosphatase (34-104) Units/L Serum Total Protein (6.4-8.9) g/dL Albumin (3.5-5.7) g/dL Globulin (2.4-3.5) g/dL Albumin/Globulin Ratio (1.1-2.2) Lipase (11-82) Units/L Urine Color Yellow (Yellow) Urine Clarity Clear (Clear) Urine pH 6.0 (5.0-8.0) pH Units Ur Specific [place] 1.019 (1.010-1.025) Urine Protein Negative (Neg-Trace) mg/dL Urine Glucose (UA) Normal (Normal) mg/dL Urine Ketones Negative (Negative) mg/dL Urine Blood Negative (Negative) Urine Nitrite Negative (Negative) Urine Bilirubin Negative (Negative) Urine Urobilinogen Normal (Normal) mg/dL Ur Leukocyte Esterase Negative (Negative) Ur Culture Indicated? NO (NO) - Radiology Data Radiology results reviewed: Yes I reviewed the patient's radiology results. Abdomen/Pelvis CT 08/21/17 11:15 IMPRESSION: 1. Improved colitis with minimal residual wall thickening of the sigmoid colon. 2. Distended hydropic appearing gallbladder, unchanged in appearance. D/ / Demetrio Fatima MD / Demetrio Fatima MD Interpreting Provider: Demetrio Fatima MD Attestation Statement - Attestation Attestation: Patient was seen with resident physician. I reviewed the history, physical, assessment and plan, and agree with the findings. I also personally evaluated this patient and had [id number] time with this patient. 62-year-old female presents to emergency department with exacerbation of diverticulitis. Patient had abdominal pain and a small amount of bleeding from the rectum earlier this morning which prompted her visit today. Patient states that she has been dealing with diverticulitis for some time now last admission was approximately 2 weeks ago she had a positive CT scan. She is also followed by surgery. She says every time the pain gets this bad she ends up hospitalized she has been on chronic antibiotics for some time. She has nausea without vomiting and denies other complaints. On exam vital signs are stable. ENT is unremarkable. Heart and lungs are normal. Abdomen is soft there is tenderness diffusely but mostly in the left side. No guarding or rigidity. No masses. Extremities unremarkable. Neurologically intact. Skin no rashes. Psych normal. ED course we will workup for diverticulitis depending on the findings of the workup will determine ultimately her disposition. We will also work on pain management. Pain was better, CT scan was improved, but patient was uncomfortable going home because of the recurrence of her pain. We spoke with surgery who recommended admission to the hospitalist service for pain management and they would evaluate for potential surgery. Patient was comfortable with this plan. We spoke with the hospitalist who agreed to admit the patient. Agree with the resident physician assessment and plan.
[2017-08-21 10:00] LABS: Basophils % 0.5 %; Eosinophils % 0.1 %; Hematocrit 39.8 % (35.3-44.9); Hemoglobin 13.4 g/dL (11.5-15.4); Immature Granulocytes % 0.3 % (0-4); Lymphocytes # 1.4 K/mcL (0.6-4.6); Lymphocytes % 18.4 %; Mean Corpuscular HGB Conc 33.7 g/dL (31.6-35.5); Mean Corpuscular Hemoglobin 31.9 pg (28.0-33.3); Mean Corpuscular Volume 94.8 fL (83.0-100.0); Mean Platelet Volume 12.4 fL (9.4-12.4); Monocytes # 0.9 K/mcL (0.0-1.3); Monocytes % 12.1 %; Red Cell Distribution Width 13.3 % (11.5-14.5); Segmented Neutrophils % 68.6 %
[2017-08-21 10:02] LABS: Neutrophils # 5.2 K/mcL (1.6-8.9); Platelet Count 68 K/mcL (140-400)
[2017-08-21] MEDS ORDERED: *HR* FentaNYL (PF) 100 MCG/2 ML VIAL IVP ONE (10:09)
[2017-08-21 10:21] LABS: Alanine Aminotransferase 177 Units/L (7-52); Albumin 3.3 g/dL (3.5-5.7); Albumin/Globulin Ratio 0.9 (1.1-2.2); Alkaline Phosphatase 167 Units/L (34-104); Aspartate Amino Transferase 263 Units/L (13-39); BUN/Creatinine Ratio 15 (6-26); Bilirubin,Direct 0.4 mg/dL (0.0-0.2); Bilirubin,Indirect 0.8 mg/dL (0.0-1.2); Bilirubin,Total 1.2 mg/dL (0.3-1.0); Blood Urea Nitrogen 12 mg/dL (8-23); Calcium 9.5 mg/dL (8.6-10.3); Carbon Dioxide 25 mEq/L (23-29); Chloride 108 mEq/L (98-107); Globulin 3.8 g/dL (2.4-3.5); Glucose 112 mg/dL (70-105); Lipase 22 Units/L (11-82); Osmolality,Calculated 285 (280-300); Potassium 3.9 mEq/L (3.5-5.1); Sodium 137 mEq/L (136-145); Total Protein 7.1 g/dL (6.4-8.9); eGFR For African Americans > 60 (> 60); eGFR For Non-African Americans > 60 (> 60)
[2017-08-21 10:32] LABS: Bilirubin,Urine Negative (Negative); Blood,Urine Negative (Negative); Clarity,Urine Clear (Clear); Color,Urine Yellow (Yellow); Glucose,Urine (UA) Normal (Normal); Ketones,Urine Negative (Negative); Leukocyte Esterase,Urine Negative (Negative); Nitrite,Urine Negative (Negative); Protein,Urine Negative (Neg-Trace); Specific Gravity,Urine 1.019 (1.010-1.025); Urobilinogen,Urine Normal (Normal)
[2017-08-21] MEDS ORDERED: MetroNIDAZOLE 500 MG/100 ML 500 MG/100 ML BAG IVPB ONE (11:55)
[2017-08-21] MEDS ORDERED: Ondansetron 4 MG/2 ML VIAL IVP PRN (12:21)
[2017-08-21] MEDS ORDERED: *HR* Promethazine 25 MG/ML VIAL IVP PRN (12:22)
[2017-08-21] MEDS ORDERED: *HR* OxyCODONE Immed Rel 5 MG TABLET PO PRN (12:24)
[2017-08-21] MEDS ORDERED: Naloxone 0.4 MG/ML INJ IVP PRN (12:28)
--- NOTE | 2017-08-21 12:39 | Event Note ---
Date of Encounter: 08/21/17 Time of Encounter: 12:27 Patient was seen and examined by me. I agree with the H&P as written by Layo Oviedo NP. Patient presents with abdominal pain. Has multiple admissions the last 2-3 months for acute diverticulitis. Follows with surgery and there was talks about surgical intervention for this. CT abd/pelvis shows improving but residual colitis. Labs significant for transaminitis which she has had in the past and has been worked up with RUQ US and abd MRI and findings were equivocal. Has h/ o Hep C Will admit the patient and have surgery consulted. They are aware of the patient from the ED. Will start cipro/flagyl. Bowel rest. IV fluids. NPO. Surgery to comment on transaminitis and need for further work up including HIDA? ? Hepatitis panel shows Hep C back in mar 2017
--- NOTE | 2017-08-21 12:55 | Internal Med History&Physical ---
Date of Encounter: 08/21/17 Time of Encounter: 12:51 Assessment and Plan (1) Diverticulitis Current visit: Yes Status: Acute Presents today with RLQ and LQ abdominal pain secondary to history of diverticulitis. The patient has had multiple admissions over the last 2-3 months for diverticulitis has been on multiple rounds of Cipro Floxin and Flagyl. She reports the pain began to get worse last night is also reporting becoming nausea, vomiting and diarrhea with intermittent hematochezia. CT abdomen and pelvis shows improved colitis with minimal residual wall thickening of the sigmoid colon. -A BX Cipro/Flagyl -Continue bowel rest, nothing by mouth -IV fluids -Pain management with Roxicodone -Antiemetics -Consult surgery-defer to surgery for further recommendations regarding management. -CBC D, CMP in the a.m. (2) Abdominal pain Current visit: No Status: Acute Qualifiers: Abdominal location: generalized Qualified Code(s): R10.84 - Generalized abdominal pain (3) Hepatitis C Current visit: Yes Status: Chronic Qualifiers: Viral hepatitis chronicity: chronic Hepatic coma status: without hepatic coma Qualified Code(s): B18.2 - Chronic viral hepatitis C (4) Transaminitis Current visit: No Status: Chronic (5) Bright red blood per rectum Current visit: No Status: Resolved (6) Essential hypertension Current visit: Yes Status: Chronic Stable, continue CCB (7) DVT prophylaxis Current visit: Yes Status: Acute Mechanical prophylaxis Internal Medicine - H&P: HPI Chief complaint: adominal pain Admitted From: Home Plans for Post Hospital Care: Home History of present illness: Ms. Jessica is a 62 year old female with a PMH of COPD, CVA, GERD, hyperlipidemia, and hypertension. She presents to [facility] today with RLQ, and LLQ abdominal pain which began last night. She has a h/o diverticulitis and has been treated at [facility] for this recently and has been on multiple rounds of ciprofloxacin and Flagyl. During the last admission she was evaluated by Dr. Frazier for at that time it was decided that she should continue antibiotic therapy for 6-8 weeks to reduce inflammation before scheduling surgery. Her last colonoscopy was approximately 2 weeks ago which found many small and larged mouth diverticula in the colon without evidence of bleeding. She is reporting minimal improvement since the last admission and continued to report intermittent pain. However, last night her pain did begin to increase and she was also experiencing nausea, vomiting and diarrhea with some hematochezia. She denies any chest pain, shortness of breath, urinary problems. She admits to fevers, chills, generalized aches and pains and abdominal pain. CT of abdomen today shows improvement in inflammation. CBC unremarkable with the exception of thrombocytopenia, BMP shows transaminitis but the patient does have a history of hepatitis C. Past Med Surg Social Fam HX - Past Medical History Medical history: COPD, CVA, GERD, hyperlipidemia, hypertension, other Psychiatric history: depression - Past Surgical History Surgical History: angioplasty/stent, cataract, hysterectomy, other - Social History Smoking Status: Current every day smoker Smokeless Tobacco Status: No Alcohol use: none Drug use: none - Family History Father Hx Family Cardiac Disorders: Yes Internal Medicine - H&P: Meds Diltiazem CD (24hr) [Cardizem CD] 180 mg PO DAILY 06/27/17 [History] Famotidine [Pepcid] 40 mg PO DAILY 06/27/17 [History] 3 Allergy/AdvReac Type Severity Reaction Status Date / Time niacin Allergy Flushing Verified 08/21/17 12:34 Penicillins [PCN] Allergy Rash Verified 08/21/17 12:34 duracef Allergy See Uncoded 08/21/17 12:34 Comments All Systems PM: A 10-system review of systems was performed and is negative for pertinent findings except as documented above in the HPI. - Constitutional Constitutional: no chills, no fever(s), no night sweats - Cardiovascular Cardiovascular ROS IM: no chest pain, no diaphoresis, no dyspnea, no lightheadedness, no palpitations, no syncope - Respiratory Respiratory: no cough, no dyspnea, no wheezing, no excessive phlegm production - Gastrointestinal Gastrointestinal: abdominal pain (RLQ, LLQ), diarrhea, hematochezia, nausea, vomiting, no constipation, no hematemesis, no melena - Genitourinary Genitourinary: no change in urinary stream, no dysuria, no flank pain, no hematuria - Musculoskeletal Musculoskeletal ROS IM: no numbness, no tingling - Integumentary Integumentary IM: no rash, no unusual bruising - Neurological Neurological ROS: no confusion, no convulsions, no focal weakness, no numbness, no tingling, no tremor(s) - Constitutional Vitals: Temp Pulse Resp BP Pulse Ox 98.1 F 65 18 128/75 98 08/21/17 09:13 08/21/17 12:37 08/21/17 12:37 08/21/17 12:37 08/21/17 12:23 General appearance: Present: cooperative, mild distress, A&O X 3, answers questions appropriately - Head Head exam: Present: atraumatic, normocephalic - Eye Pupils: Present: PERRL - Respiratory Respiratory exam: Present: CTAB. Absent: accessory muscle use, rales, rhonchi, wheezes - Cardiovascular Cardiovascular exam: Present: RRR, +S1, +S2. Absent: diastolic murmur, gallop, rubs, systolic murmur - GI/Abdominal GI/Abdominal exam: Present: hyperactive bowel sounds, soft, tenderness (RLQ, LLQ ). Absent: distended, firm, guarding, hepatomegaly, mass, pulsatile mass, rebound - Extremities Exam Extremities exam: Present: warm, radial pulses palpable and symmetrical. Absent : calf tenderness, cyanotic, pedal edema - Neurological Exam Neurological exam: Present: alert, oriented X3. Absent: facial droop, speech deficit - Skin Skin exam: Present: dry, intact Internal Med - H&P Results - Labs CBC & Chem 7: 08/21/17 09:45 08/21/17 09:45 - Impressions Impressions Abdomen/Pelvis CT 08/21/17 11:15 IMPRESSION: 1. Improved colitis with minimal residual wall thickening of the sigmoid colon. 2. Distended hydropic appearing gallbladder, unchanged in appearance. D/ / Demetrio Fatima MD / Demetrio Fatima MD Interpreting Provider: Demetrio Fatima MD
--- NOTE | 2017-08-21 13:58 | General Surgery Consult Note ---
<MichaeltonyAlicia H - Last Filed: 08/21/17 13:47> Date of Encounter: 08/21/17 Time of Encounter: 13:47 Assessment and Plan (1) Diverticulitis Current Visit: Yes Status: Acute 62 yo female with PMHx of recurrent bouts of diverticulitis p/w lower abdominal pain. Patient with recent admission to [facility] with recent treatment with cipro and flagyl for acute diverticulitis. -CT abd/pelvis 08/21/2017 with improved colitis, minimal residual wall thickening of sigmoid colon. -IVF -NPO -IV Abx -anti-emetics and pain control -Abdomen soft, non-peritoneal, normal WBC, no bands. No indication for acute surgery. Will discuss with Dr. Ozuna further management regarding operative intervention. (2) Abdominal pain Current Visit: No Status: Acute see management as above. Qualifiers: Abdominal location: generalized Qualified Code(s): R10.84 - Generalized abdominal pain (3) Hepatitis C Current Visit: Yes Status: Chronic Chronic. Qualifiers: Viral hepatitis chronicity: chronic Hepatic coma status: without hepatic coma Qualified Code(s): B18.2 - Chronic viral hepatitis C (4) Transaminitis Current Visit: No Status: Chronic Chronically elevated 2/2 hep C. (5) Thrombocytopenia Current Visit: No Status: Chronic Chronic likely 2/2 hep C. (6) Essential hypertension Current Visit: Yes Status: Chronic management per primary team -on CCB (7) Tobacco abuse Current Visit: No Status: Chronic may need nicotine replacement therapy. (8) DVT prophylaxis Current Visit: Yes Status: Acute EPCDS -GI prophylaxis with pepcid daily. History of Present Illness Consult date: 08/21/17 Reason for consult: abdominal pain Requesting physician: [facility] History of present illness: Ms. Jessica is a 62-year-old female with past medical history of COPD, CVA, GERD, HLD, hypertension, recurrent episodes of diverticulitis, and hepatitis C who presents to [facility] today on 08/21/2017 with lower abdominal pain which began last night. She states her pain has been chronic and intermittent over the past several months. She was recently discharged from [facility] 2 weeks ago for an acute flare of diverticulitis. Upon discharge, she was instructed to continue antibiotic therapy and follow-up for potential surgical intervention in 6-8 weeks as an attempt at reducing inflammation before surgery. Her last colonoscopy was on 07/28/2017 which demonstrated diverticulosis and nonbleeding polyps. Patient states she has had minimal improvement since her last admission. She reports intermittent episodes of pain. She states last night that her pain intensified. She describes it as sharp and crampy in nature. She describes nausea with a small amount of emesis. No hematemesis. She reports a small amount of diarrhea with a small amount of BRBPR. No melena. She reports fevers, chills, and generalized aches and pains. She denies any recent chest pain, palpitations, shortness of breath, or diaphoresis. She denies dysuria or hematuria. CT of the abdomen and pelvis obtained in the ED demonstrated interval improvement in colitis with minimal residual wall thickening of the sigmoid colon. CBC unremarkable except for thrombocytopenia which appears to be chronic, along with transaminitis and elevated alk phos, secondary to Hepatitis C. Past Med Surg Social Fam HX - Past Medical History Attestation: Yes The following information was validated with the patient. Source: patient Medical history: COPD, CVA, GERD, hyperlipidemia, hypertension, other ( hepatitis C) Psychiatric history: depression - Past Surgical History Surgical History: cataract, hysterectomy, other - Social History Smoking Status: Current every day smoker Smokeless Tobacco Status: No Alcohol use: none Drug use: none - Family History Father Living Status: Age at : 66 Cause of : cardiac, RA, PN Hx Family Cardiac Disorders: Yes Hx Family Respiratory Disorders: Yes Hx Family Cancer: No Hx Family GI Disorders: No Hx Family Genitourinary Disorders: No Hx Family Endocrine Disorder: No Hx Family Musculoskeletal Disorders: No Hx Family Neuromuscular Disorders: No Hx Family Neurologic Disorders: No Hx Family HEENT Disorders: No Hx Family Autoimmune Disorders: Yes Hx Family Reproductive Disorders: No Hx Family Psychosocial Disorders: No Hx Family Medical Disorders: No Medications and Allergies Diltiazem CD (24hr) [Cardizem CD] 180 mg PO DAILY 06/27/17 [History] Famotidine [Pepcid] 40 mg PO DAILY 06/27/17 [History] 3 Allergy/AdvReac Type Severity Reaction Status Date / Time niacin Allergy Flushing Verified 08/21/17 12:34 Penicillins [PCN] Allergy Rash Verified 08/21/17 12:34 duracef Allergy See Uncoded 08/21/17 12:34 Comments Review of Systems All systems PM: The remainder of the systems were reviewed and are negative - Constitutional chills, fever(s), no weight loss - Cardiovascular no chest pain, no diaphoresis, no dyspnea, no irregular heart rhythm, no radiating jaw, neck or arm pain, no lightheadedness, no palpitations - Respiratory no cough, no dyspnea - Gastrointestinal abdominal pain, hematochezia, loose stools, nausea, vomiting, no coffee ground emesis, no hematemesis, no melena - Musculoskeletal no abnormal gait - Integumentary no unusual bruising - Neurological no numbness, no weakness General Surgery Exam Initial Vital Signs Temp Pulse Resp BP Pulse Ox 98.1 F 95 16 142/86 98 08/21/17 09:13 08/21/17 09:13 08/21/17 09:13 08/21/17 09:13 08/21/17 09:13 - General physical appearance well developed, no distress, moderate pain, chronically ill - Respiratory normal expansion, normal respiratory effort wheezing: bilateral - Cardiovascular Cardiovascular exam: Present: RRR, no murmurs/rubs/gallops - Abdomen Abdomen general surgery: Present: bowel sounds present, soft. Absent: guarding , rebound, rigid, peritoneal Abdominal Tenderness: Present: RLQ, LLQ Hernia: Present: none - Integumentary Integumentary general surgery: Present: warm and dry - Neurologic Present: CN 2-12 grossly intact, normal coordination - Musculoskeletal Present: normal posture - Psychiatric Psychiatric general surgery: Present: A&Ox3, speech is normal, memory intact Exam Initial Vital Signs Temp Pulse Resp BP Pulse Ox 98.1 F 95 16 142/86 98 08/21/17 09:13 08/21/17 09:13 08/21/17 09:13 08/21/17 09:13 08/21/17 09:13 Results - Labs 08/21/17 09:45 08/21/17 09:45 Abnormal lab results Plt Count 68 K/mcL (140-400) L 08/21/17 09:45 Chloride 108 mEq/L (98-107) H 08/21/17 09:45 Glucose 112 mg/dL (70-105) H 08/21/17 09:45 Total Bilirubin 1.2 mg/dL (0.3-1.0) H 08/21/17 09:45 Direct Bilirubin 0.4 mg/dL (0.0-0.2) H 08/21/17 09:45 AST 263 Units/L (13-39) H 08/21/17 09:45 ALT 177 Units/L (7-52) H 08/21/17 09:45 Alkaline Phosphatase 167 Units/L (34-104) H 08/21/17 09:45 Albumin 3.3 g/dL (3.5-5.7) L 08/21/17 09:45 Globulin 3.8 g/dL (2.4-3.5) H 08/21/17 09:45 Albumin/Globulin Ratio 0.9 (1.1-2.2) L 08/21/17 09:45 All other labs normal. Consult Discharge Plan - Plan Referrals: Ghanshyam Taylor [Primary Care Provider] - <Dea Ozuna - Last Filed: 08/21/17 19:02> Date of Encounter: 08/21/17 Assessment and Plan (1) Diverticulitis Current Visit: Yes Status: Acute CT personally reviewed and there is essentially no appreciable inflammation on PE she has no obvious abdominal pain other that what she states is pain in lower abdomen and RUQ, her RUQ is tender with palpation she has no rebound or guarding, she is not distended her WBC is wnl and vitals are normal she requires no acute surgical intervention at this time ok for a diet from surgery standpoint. tomorrow will let Dr Frazier, who follows with patient, know she is here (2) Abdominal pain Current Visit: No Status: Acute per nursing patient is asking for dilaudid Qualifiers: Abdominal location: generalized Qualified Code(s): R10.84 - Generalized abdominal pain Review of Systems All systems PM: reviewed and no additional remarkable complaints except as stated All systems PM: The remainder of the systems were reviewed and are negative General Surgery Exam Initial Vital Signs Temp Pulse Resp BP Pulse Ox 98.1 F 95 16 142/86 98 08/21/17 09:13 08/21/17 09:13 08/21/17 09:13 08/21/17 09:13 08/21/17 09:13 - General physical appearance well developed, no distress, no pain - Eyes PERRL, normal ocular movement - ENT normal mucosa, normocephalic - Neck trachea midline - Respiratory normal expansion, normal respiratory effort - Cardiovascular Cardiovascular exam: Present: RRR - Abdomen Abdomen general surgery: Present: bowel sounds present, soft, tender. Absent: distended, guarding, rebound, rigid Abdominal Tenderness: Present: RUQ - Integumentary Integumentary general surgery: Present: warm and dry - Neurologic Present: CN 2-12 grossly intact, normal coordination - Musculoskeletal Present: normal posture - Psychiatric Psychiatric general surgery: Present: A&Ox3, speech is normal, memory intact Exam Initial Vital Signs Temp Pulse Resp BP Pulse Ox 98.1 F 95 16 142/86 98 08/21/17 09:13 08/21/17 09:13 08/21/17 09:13 08/21/17 09:13 08/21/17 09:13 Results - Labs 08/21/17 09:45 08/21/17 09:45 Abnormal lab results Plt Count 68 K/mcL (140-400) L 08/21/17 09:45 Chloride 108 mEq/L (98-107) H 08/21/17 09:45 Glucose 112 mg/dL (70-105) H 08/21/17 09:45 Total Bilirubin 1.2 mg/dL (0.3-1.0) H 08/21/17 09:45 Direct Bilirubin 0.4 mg/dL (0.0-0.2) H 08/21/17 09:45 AST 263 Units/L (13-39) H 08/21/17 09:45 ALT 177 Units/L (7-52) H 08/21/17 09:45 Alkaline Phosphatase 167 Units/L (34-104) H 08/21/17 09:45 Albumin 3.3 g/dL (3.5-5.7) L 08/21/17 09:45 Globulin 3.8 g/dL (2.4-3.5) H 08/21/17 09:45 Albumin/Globulin Ratio 0.9 (1.1-2.2) L 08/21/17 09:45 All other labs normal. - Imaging CT scan - abdomen: report reviewed, image reviewed CT scan - pelvis: report reviewed, image reviewed - Attending Attestation I examined this patient and my medical decision-making was reviewed with the Resident Physician. I agree with the documented findings, disposition and treatment plan as described except to the extent set forth below.
[2017-08-21] MEDS: 0.9 % Sodium Chloride 1,000 ML IVC SCH (14:12)
[2017-08-21] MEDS ORDERED: OXYCODONE Oral CONC 10 MG/0.5 ML ORAL.SYG SL PRN (15:27)
[2017-08-21] MEDS ORDERED: Ketorolac 15 MG/ML VIAL IVP ONE ×2 (15:29→15:39)
[2017-08-21] MEDS ORDERED: *HR* OxyCODONE Immed Rel 5 MG TABLET PO SCH (16:00)
[2017-08-21] MEDS ORDERED: MetroNIDAZOLE 500 MG/100 ML 500 MG/100 ML BAG IVPB SCH (20:00)
[2017-08-21] MEDS: OXYCODONE Oral CONC 10 MG/0.5 ML ORAL.SYG SL PRN (21:33)
[2017-08-22] MEDS: 0.9 % Sodium Chloride 1,000 ML IVC SCH (03:31)
[2017-08-22] MEDS: OXYCODONE Oral CONC 10 MG/0.5 ML ORAL.SYG SL PRN ×2 (05:00→19:51)
[2017-08-22] MEDS: MetroNIDAZOLE 500 MG/100 ML 500 MG/100 ML BAG IVPB SCH ×3 (05:01→20:59)
[2017-08-22 05:39] LABS: Red Cell Distribution Width 13.4 % (11.5-14.5)
[2017-08-22 05:41] LABS: Basophils # 0.1 K/mcL (0.0-0.2); Basophils % 1.3 %; Eosinophils # 0.1 K/mcL (0.0-0.6); Eosinophils % 1.1 %; Hematocrit 36.3 % (35.3-44.9); Hemoglobin 11.8 g/dL (11.5-15.4); Immature Granulocytes % 0.4 % (0-4); Immature Platelets 9.8 % (1.1-6.1); Lymphocytes % 21.2 %; Mean Corpuscular HGB Conc 32.5 g/dL (31.6-35.5); Mean Corpuscular Hemoglobin 31.6 pg (28.0-33.3); Mean Corpuscular Volume 97.1 fL (83.0-100.0); Mean Platelet Volume 12.2 fL (9.4-12.4); Monocytes # 0.6 K/mcL (0.0-1.3); Monocytes % 12.2 %; Red Blood Count 3.74 M/mcL (3.82-4.97); Segmented Neutrophils % 63.8 %
[2017-08-22 05:56] LABS: Platelet Count 61 K/mcL (140-400)
[2017-08-22 05:58] LABS: Alanine Aminotransferase 145 Units/L (7-52); Albumin 2.8 g/dL (3.5-5.7); Albumin/Globulin Ratio 0.9 (1.1-2.2); Alkaline Phosphatase 137 Units/L (34-104); Aspartate Amino Transferase 212 Units/L (13-39); BUN/Creatinine Ratio 18 (6-26); Bilirubin,Total 1.3 mg/dL (0.3-1.0); Blood Urea Nitrogen 14 mg/dL (8-23); Calcium 8.4 mg/dL (8.6-10.3); Carbon Dioxide 27 mEq/L (23-29); Chloride 108 mEq/L (98-107); Globulin 3.2 g/dL (2.4-3.5); Glucose 100 mg/dL (70-105); Osmolality,Calculated 289 (280-300); Potassium 3.5 mEq/L (3.5-5.1); Sodium 139 mEq/L (136-145); eGFR For African Americans > 60 (> 60); eGFR For Non-African Americans > 60 (> 60)
[2017-08-22] MEDS: Famotidine 20 MG TABLET PO SCH (07:54)
[2017-08-22] MEDS: Diltiazem CD (24hr) 180 MG CAPSULE PO SCH (07:54)
[2017-08-22] MEDS ORDERED: MetroNIDAZOLE 500 MG/100 ML 500 MG/100 ML BAG IVPB SCH (08:00)
--- NOTE | 2017-08-22 09:42 | Internal Med Progress Note ---
Date of Encounter: 08/22/17 Time of Encounter: 09:40 - Assessment and plan (1) Diverticulitis Current Visit: Yes Status: Acute Assessment and plan: Continue conservative management. General surgery is following. Continue IV Cipro and Flagyl. Continue antiemetics. Continue IV fluids. Pain control. Patient actually tolerated regular diet this morning. She is stock drier tender in the Lower abdomen. Had loose stools this morning and GI panel is sent. She is already on Flagyl if C. diff positive (2) Transaminitis Current Visit: No Status: Chronic Assessment and plan: RUQ US n 06/27/2017 showed Cholelithiasis, gallbladder wall thickening, and mild pericholecystic fluid. An MRCP was done showing distended gallbladder with gallbladder wall thickening/edema and cholelithiasis. Findings are equivocal for acute cholecystitis. Will discuss with surgery. Does have tenderness to palpation in the RUQ. (3) Essential hypertension Current Visit: Yes Status: Chronic Assessment and plan: Continue Cardizem. Blood pressure stable. (4) Hepatitis C Current Visit: Yes Status: Chronic Assessment and plan: Chronic. Continue to monitor. Qualifiers: Viral hepatitis chronicity: chronic Hepatic coma status: without hepatic coma Qualified Code(s): B18.2 - Chronic viral hepatitis C (5) DVT prophylaxis Current Visit: Yes Status: Acute Assessment and plan: Heparin subcutaneous - Subjective Interval history: Patient was seen and examined. No acute events. A few loose stools this morning. GI panel sent. Pain is better controlled. Admitted with abdominal pain. Has multiple admissions the last 2-3 months for acute diverticulitis. Follows with surgery and there was talks about surgical intervention for this. CT abd/pelvis shows improving but residual colitis. Labs significant for transaminitis which she has had in the past and has been worked up with RUQ US and abd MRI and findings were equivocal. Has h/o Hep C - Constitutional Vitals: Temp Pulse Resp BP Pulse Ox 97.7 F 62 16 120/75 95 08/22/17 07:23 08/22/17 07:23 08/22/17 07:23 08/22/17 07:23 08/22/17 07:23 General appearance: Present: cooperative, mild distress, A&O X 3, answers questions appropriately Exam: GEN: NAD CVS: RRR. S1, S2, No m/r/g RESP: CTAB ABD: Soft, lower abdomen tenderness but no rebound. Has RUQ tenderness to palpation as well. ND, +BS EXT: No edema. 2+ DP, No rashes NEURO: Nonfocal Internal Medicine: Result - Labs CBC & Chem 7: 08/22/17 05:28 08/22/17 05:28 Labs: Short CBC 08/22/17 Range/Units 05:28 WBC 4.7 (4.3-11.1) K/mcL Hgb 11.8 D (11.5-15.4) g/dL Hct 36.3 (35.3-44.9) % Plt Count 61 L (140-400) K/mcL Neutrophils # 3.0 (1.6-8.9) K/mcL BMP 08/22/17 05:28 Sodium 139 Potassium 3.5 Chloride 108 H Carbon Dioxide 27 BUN 14 Creatinine 0.78 Glucose 100 Calcium 8.4 L Liver Function 08/22/17 Range/Units 05:28 Total Bilirubin 1.3 H (0.3-1.0) mg/dL AST 212 H (13-39) Units/L ALT 145 H (7-52) Units/L Alkaline Phosphatase 137 H (34-104) Units/L Albumin 2.8 L (3.5-5.7) g/dL Consult Discharge Plan - Plan Instructions: Diverticulitis (DC), Diverticulitis Diet (DC) Referrals: Rafita Frazier MD [Non-Partnered Physician] - 10/05/17 12:45 pm Ghanshyam Taylor [Primary Care Provider] - Damien Gavin MD [Partnered Physician] - 08/26/17 2:50 pm
[2017-08-22 10:09] LABS: Hepatitis A Antibody IgM Nonreactive (Nonreactive); Hepatitis B Core IgM Nonreactive (Nonreactive); Hepatitis B Surface Antigen Nonreactive (Nonreactive)
--- NOTE | 2017-08-22 10:14 | General Surgery Progress Note ---
<Marielle Blanco - Last Filed: 08/22/17 11:04> Date of Encounter: 08/22/17 Time of Encounter: 10:14 - Assessment and Plan (1) Acute diverticulitis Current Visit: Yes Status: Acute And states she was able to tolerate her regular diet and states she feels much better this morning compared to admission. She denies abdominal presently. Her abdominal exam is benign. She is noted to have the surgical intervention for elective colectomy with Dr. Frazier in September 2017. There is no surgical intervention indicated during her present admission. Would recommend patient to complete IV antibiotics, transition to PO antibiotics as an outpatient, and follow a low fiber diet until surgery. Follow up with Dr. Frazier as previously recommended. surgery will sign off at this time. Thank you for allowing us to participate in Zoë's care. (2) Hepatitis C Current Visit: Yes Status: Chronic Qualifiers: Viral hepatitis chronicity: chronic Hepatic coma status: without hepatic coma Qualified Code(s): B18.2 - Chronic viral hepatitis C Subjective Patient reports: no new complaints, feels better, tolerating a regular diet, voiding w/o difficulty, flatus, bowel movement, afebrile Objective Vital Signs - Last 8 Hours Temp Pulse Resp BP Pulse Ox 08/22/17 07:23 97.7 F 62 16 120/75 95 08/22/17 03:07 97.7 F 59 14 118/71 97 Intake and Output 08/21/17 08/22/17 08/22/17 23:59 07:59 15:59 Intake Total 280 / 280 1780 / 1780 480 / 480 Output Total 450 / 450 325 / 325 Balance -170 / -170 1455 / 1455 480 / 480 Intake: IV Fluids 100 / 100 1300 / 1300 0.9 % Sodium Chloride 1,000 ML 1000 / 1000 @ 75 mls/hr IVC .[id number] [facility] Rx #:[id number] Cipro Premix 400 MG/200 ML 400 200 / 200 mg In 200 ml @ 200 mls/hr IVPB Q12H [facility] Rx#:[id number] Flagyl Premix 500 MG/100 ML 500 100 / 100 100 / 100 mg In 100 ml @ 100 mls/hr IVPB Q8H [facility] Rx#:[id number] Oral 180 / 180 480 / 480 480 / 480 Output: Urine 450 / 450 325 / 325 Other: Meal NPO Breakfast Percent of Meal Consumed 50% Stool Size Small Stool Consistency liquid Stool Color Yellow # Voids 1 # Bowel Movements 1 Weight 51.7 kg Blood Glucose* 76 Patient Weight 08/22/17 23:59 Weight 51.7 kg - General physical appearance well nourished, no distress - ENT normal nares, normal mucosa - Respiratory normal expansion, normal respiratory effort - Cardiovascular Cardiovascular exam: Present: RRR - Abdomen Abdomen: Present: bowel sounds present, soft, non tender - Integumentary no rash, no growths - Neurologic CN 2-12 grossly intact, normal coordination, normal sensation - Musculoskeletal normal gait, normal posture - Psychiatric oriented to time, oriented to person, oriented to place, speech is normal, memory intact - Labs 08/22/17 05:28 08/22/17 05:28 Diabetes panel 08/22/17 Range/Units 05:28 Sodium 139 (136-145) mEq/L Potassium 3.5 (3.5-5.1) mEq/L Chloride 108 H (98-107) mEq/L Carbon Dioxide 27 (23-29) mEq/L BUN 14 (8-23) mg/dL Creatinine 0.78 (0.60-1.20) mg/dL Glucose 100 (70-105) mg/dL Calcium 8.4 L (8.6-10.3) mg/dL AST 212 H (13-39) Units/L ALT 145 H (7-52) Units/L Alkaline Phosphatase 137 H (34-104) Units/L Albumin 2.8 L (3.5-5.7) g/dL Calcium panel 08/22/17 Range/Units 05:28 Calcium 8.4 L (8.6-10.3) mg/dL Albumin 2.8 L (3.5-5.7) g/dL Pituitary panel 08/22/17 Range/Units 05:28 Sodium 139 (136-145) mEq/L Potassium 3.5 (3.5-5.1) mEq/L Chloride 108 H (98-107) mEq/L Carbon Dioxide 27 (23-29) mEq/L BUN 14 (8-23) mg/dL Creatinine 0.78 (0.60-1.20) mg/dL Glucose 100 (70-105) mg/dL Calcium 8.4 L (8.6-10.3) mg/dL Adrenal panel 08/22/17 Range/Units 05:28 Sodium 139 (136-145) mEq/L Potassium 3.5 (3.5-5.1) mEq/L Chloride 108 H (98-107) mEq/L Carbon Dioxide 27 (23-29) mEq/L BUN 14 (8-23) mg/dL Creatinine 0.78 (0.60-1.20) mg/dL Glucose 100 (70-105) mg/dL Calcium 8.4 L (8.6-10.3) mg/dL Total Bilirubin 1.3 H (0.3-1.0) mg/dL AST 212 H (13-39) Units/L ALT 145 H (7-52) Units/L Alkaline Phosphatase 137 H (34-104) Units/L Albumin 2.8 L (3.5-5.7) g/dL Consult Discharge Plan - Plan Instructions: Diverticulitis (DC), Diverticulitis Diet (DC) Referrals: Ghanshyam Taylor [Primary Care Provider] - Rafita Frazier MD [Non-Partnered Physician] - 10/05/17 12:45 pm Damien Gavin MD [Partnered Physician] - 08/26/17 2:50 pm <Rafita Frazier - Last Filed: 08/22/17 12:05> Date of Encounter: 08/22/17 Objective Vital Signs - Last 8 Hours Temp Pulse Resp BP Pulse Ox 08/22/17 07:23 97.7 F 62 16 120/75 95 Intake and Output 08/21/17 08/22/17 08/22/17 23:59 07:59 15:59 Intake Total 280 / 280 1780 / 1780 480 / 480 Output Total 450 / 450 325 / 325 Balance -170 / -170 1455 / 1455 480 / 480 Intake: IV Fluids 100 / 100 1300 / 1300 0.9 % Sodium Chloride 1,000 ML 1000 / 1000 @ 75 mls/hr IVC .[id number] [facility] Rx #:[id number] Cipro Premix 400 MG/200 ML 400 200 / 200 mg In 200 ml @ 200 mls/hr IVPB Q12H [facility] Rx#:[id number] Flagyl Premix 500 MG/100 ML 500 100 / 100 100 / 100 mg In 100 ml @ 100 mls/hr IVPB Q8H [facility] Rx#:[id number] Oral 180 / 180 480 / 480 480 / 480 Output: Urine 450 / 450 325 / 325 Other: Meal NPO Breakfast Percent of Meal Consumed 50% Stool Size Small Stool Consistency liquid Stool Color Yellow # Voids 1 # Bowel Movements 1 Weight 51.7 kg Blood Glucose* 76 Patient Weight 08/22/17 23:59 Weight 51.7 kg - Labs 08/22/17 05:28 08/22/17 05:28 Diabetes panel 08/22/17 Range/Units 05:28 Sodium 139 (136-145) mEq/L Potassium 3.5 (3.5-5.1) mEq/L Chloride 108 H (98-107) mEq/L Carbon Dioxide 27 (23-29) mEq/L BUN 14 (8-23) mg/dL Creatinine 0.78 (0.60-1.20) mg/dL Glucose 100 (70-105) mg/dL Calcium 8.4 L (8.6-10.3) mg/dL AST 212 H (13-39) Units/L ALT 145 H (7-52) Units/L Alkaline Phosphatase 137 H (34-104) Units/L Albumin 2.8 L (3.5-5.7) g/dL Calcium panel 08/22/17 Range/Units 05:28 Calcium 8.4 L (8.6-10.3) mg/dL Albumin 2.8 L (3.5-5.7) g/dL Pituitary panel 08/22/17 Range/Units 05:28 Sodium 139 (136-145) mEq/L Potassium 3.5 (3.5-5.1) mEq/L Chloride 108 H (98-107) mEq/L Carbon Dioxide 27 (23-29) mEq/L BUN 14 (8-23) mg/dL Creatinine 0.78 (0.60-1.20) mg/dL Glucose 100 (70-105) mg/dL Calcium 8.4 L (8.6-10.3) mg/dL Adrenal panel 08/22/17 Range/Units 05:28 Sodium 139 (136-145) mEq/L Potassium 3.5 (3.5-5.1) mEq/L Chloride 108 H (98-107) mEq/L Carbon Dioxide 27 (23-29) mEq/L BUN 14 (8-23) mg/dL Creatinine 0.78 (0.60-1.20) mg/dL Glucose 100 (70-105) mg/dL Calcium 8.4 L (8.6-10.3) mg/dL Total Bilirubin 1.3 H (0.3-1.0) mg/dL AST 212 H (13-39) Units/L ALT 145 H (7-52) Units/L Alkaline Phosphatase 137 H (34-104) Units/L Albumin 2.8 L (3.5-5.7) g/dL - Attending Attestation I have personally seen and examined the patient. I have reviewed pertinent labs , imaging, progress notes, including this one. I agree with the above assessment and plan.
[2017-08-22 10:57] LABS: Hepatitis C Virus Antibody Reactive (Nonreactive)
[2017-08-22 11:12] LABS: Adenovirus F 40/41 PCR Not detected (Not detect); Astrovirus PCR Not detected (Not detect); C.difficile Toxin A/B by PCR See reflex test (Not detect); Campylobacter by PCR Not detected (Not detect); Cryptosporidium by PCR Not detected (Not detect); Cyclospora cayetanensis PCR Not detected (Not detect); E. coli O157 by PCR Not detected (Not detect); Entamoeba histolytica PCR Not detected (Not detect); Enteroaggregative E.coli(EAEC) Not detected (Not detect); Enteropathogenic E.coli(EPEC) Not detected (Not detect); Enterotoxigenic E.coli (ETEC) Not detected (Not detect); Giardia lamblia PCR Not detected (Not detect); Norovirus GI/GII PCR Not detected (Not detect); Plesiomonas shigelloides PCR Not detected (Not detect); Rotavirus A PCR Not detected (Not detect); Salmonella PCR Not detected (Not detect); Sapovirus PCR Not detected (Not detect); Shig/EnteroinvasiveE coli EIEC Not detected (Not detect); Shigalike tox-prod E coli STEC Not detected (Not detect); Vibrio PCR Not detected (Not detect); Vibrio cholerae PCR Not detected (Not detect); Yersinia enterocolitica PCR Not detected (Not detect)
[2017-08-22] MEDS: *HR* Heparin 5,000 UNIT/ML VIAL SQ SCH ×2 (14:34→21:00)
[2017-08-22] MEDS ORDERED: Nicotine 14 MG PATCH.TD24 TD PRN (15:08)
[2017-08-23] MEDS: MetroNIDAZOLE 500 MG/100 ML 500 MG/100 ML BAG IVPB SCH ×2 (05:04→13:22)
[2017-08-23] MEDS: *HR* Heparin 5,000 UNIT/ML VIAL SQ SCH ×2 (05:07→13:22)
[2017-08-23 05:26] LABS: Basophils % 0.7 %; Eosinophils % 0.9 %; Mean Corpuscular Volume 96.4 fL (83.0-100.0); Red Cell Distribution Width 13.2 % (11.5-14.5)
[2017-08-23 05:27] LABS: Hematocrit 35.1 % (35.3-44.9); Hemoglobin 11.6 g/dL (11.5-15.4); Immature Granulocytes % 0.2 % (0-4); Immature Platelets 10.4 % (1.1-6.1); Lymphocytes # 1.4 K/mcL (0.6-4.6); Lymphocytes % 32.6 %; Mean Corpuscular Hemoglobin 31.9 pg (28.0-33.3); Mean Platelet Volume 11.7 fL (9.4-12.4); Monocytes # 0.5 K/mcL (0.0-1.3); Monocytes % 11.6 %; Neutrophils # 2.4 K/mcL (1.6-8.9); Red Blood Count 3.64 M/mcL (3.82-4.97)
[2017-08-23 05:37] LABS: Platelet Count 58 K/mcL (140-400)
[2017-08-23 05:44] LABS: BUN/Creatinine Ratio 20 (6-26); Blood Urea Nitrogen 15 mg/dL (8-23); Calcium 8.8 mg/dL (8.6-10.3); Carbon Dioxide 25 mEq/L (23-29); Chloride 107 mEq/L (98-107); Glucose 90 mg/dL (70-105); Magnesium 1.5 mg/dL (1.6-2.6); Osmolality,Calculated 282 (280-300); Potassium 3.7 mEq/L (3.5-5.1); Sodium 136 mEq/L (136-145); eGFR For African Americans > 60 (> 60); eGFR For Non-African Americans > 60 (> 60)
[2017-08-23] MEDS: Diltiazem CD (24hr) 180 MG CAPSULE PO SCH (07:58)
[2017-08-23] MEDS: Famotidine 20 MG TABLET PO SCH (07:58)
[2017-08-23] MEDS ORDERED: Magnesium Oxide 400 MG TABLET PO SCH (14:45)
[2017-08-23 15:41] VITALS: BP 106/69
--- NOTE | 2017-08-23 16:05 | Discharge Summary ---
- NOTES TO OUTPATIENT PROVIDER Notes to Outpatient Provider: Follow-up with general surgery Date of Encounter: 08/23/17 Time of Encounter: 11:00 - Discharge Diagnosis (1) Acute diverticulitis Priority: Primary Status: Acute (2) C. difficile colitis Priority: Primary Status: Acute (3) Hepatitis C Priority: Secondary Status: Chronic Qualifiers: Viral hepatitis chronicity: chronic Hepatic coma status: without hepatic coma Qualified Code(s): B18.2 - Chronic viral hepatitis C Hospital course: Patient is a 62-year-old female with past medical history significant for COPD, CVA, GERD, hyperlipidemia, and hypertension who presents to the ER on 08/21/17 due to abdominal pain. Patient reported of a one-day history of right lower quadrant/left lower quadrant abdominal. She has a history of recurrent diverticulitis and has been treated at [facility] for this recently with multiple rounds of ciprofloxacin and Flagyl. During the last admission she was evaluated by Dr. Frazier for at that time it was decided that she should continue antibiotic therapy for 6-8 weeks to reduce inflammation before scheduling surgery. Her last colonoscopy was approximately 2 weeks ago which found many small and large mouth diverticula in the colon without evidence of bleeding. She reported of minimal improvement since the last admission and continued to report intermittent pain. However, the night prior to admission her pain did begin to increase and she was also experiencing nausea, vomiting and diarrhea with some hematochezia. Patient was admitted to medical surgical floor for further management. During patients hospital stay CT of the abdomen/pelvis showed improved colitis with minimal residual wall thickening of the sigmoid colon. General surgery was consulted with recommendations to continue IV antibiotics to be transitioned to by mouth antibiotics as an outpatient and to follow-up with surgery. Also during patients hospital stay she was found to have C. difficile and was continued on current antibiotics for coverage for C. difficile as well. Patients abdominal pain resolved and was able to tolerate by mouth. In addition patients diarrhea also resolved. Patient will be discharged to complete a 10 day course of Cipro and Flagyl for both diverticulitis and C. difficile. She should follow up with general surgery. - Time Spent with Patient Total time spent providing and/or coordinating discharge services: Less than 30 minutes - Discharge Medications Prescriptions: Ciprofloxacin HCl [Cipro] 500 mg PO BID 10 Days #20 tablet metroNIDAZOLE [Flagyl] 500 mg PO TID #30 tablet Home Medications: Diltiazem CD (24hr) [Cardizem CD] 180 mg PO DAILY 06/27/17 [History] Famotidine [Pepcid] 40 mg PO DAILY 06/27/17 [History] Ciprofloxacin HCl [Cipro] 500 mg PO BID 10 Days #20 tablet 08/23/17 [Rx] metroNIDAZOLE [Flagyl] 500 mg PO TID #30 tablet 08/23/17 [Rx] Allergies/Adverse Reactions: 3 Allergy/AdvReac Type Severity Reaction Status Date / Time niacin Allergy Flushing Verified 08/21/17 12:34 Penicillins [PCN] Allergy Rash Verified 08/21/17 12:34 duracef Allergy See Uncoded 08/21/17 12:34 Comments Date of admission: 08/21/17 12:35 Primary care physician: Ghanshyam Taylor Consults: 08/21/17 13:28 Consult to Nutrition [CONS] Routine Comment: Consulting Provider: NUTRITION Reason for Dietary Consult: Diet Education Consult to Pastoral Services [CONS] Routine Comment: - Constitutional Vitals: Temp Pulse Resp BP Pulse Ox 98.1 F 76 14 106/69 94 08/23/17 15:30 08/23/17 15:30 08/23/17 15:30 08/23/17 15:30 08/23/17 15:30 General appearance: Present: cooperative, mild distress, A&O X 3, no acute distress, answers questions appropriately - Respiratory Respiratory exam: Present: CTAB. Absent: accessory muscle use, rales, rhonchi, wheezes - Cardiovascular Cardiovascular exam: Present: RRR, +S1, +S2. Absent: diastolic murmur, gallop, rubs, systolic murmur - GI/Abdominal GI/Abdominal exam: Present: normal bowel sounds, soft, no peritoneal signs. Absent: distended, tenderness - Patient Status Disposition: Home, Self-Care Condition: Fair - Discharge Instructions Instructions: Diverticulitis (DC), Clostridium Difficile Infection (GEN), Diverticulitis Diet (DC) Follow Up With: Rafita Frazier MD [Non-Partnered Physician] - 10/05/17 12:45 pm Ghanshyam Taylor [Primary Care Provider] - Damien Gavin MD [Partnered Physician] - 08/26/17 2:50 pm
== END 2017-08-23 17:56 | disposition home or self-care (01) | DRG 244 ==
LOC: 3ANU 09:12 → EMEROO 09:12 → SUATTDRO 12:35 → 3ANU 13:09
PROVIDERS: ADMIT Family Medicine; ATTEND Hospitalist

== ENCOUNTER 2017-09-23 06:08 | Inpatient (IN) ==
[2017-09-23] MEDS ORDERED: Albuterol 2.5 MG/3 ML NEBULIZER IH ONE (06:31)
[2017-09-23] MEDS ORDERED: MetroNIDAZOLE 500 MG/100 ML 500 MG/100 ML BAG IVPB ONE (06:33)
[2017-09-23] MEDS ORDERED: Albuterol 2.5 MG/3 ML NEBULIZER ONE (06:35)
[2017-09-23] MEDS ORDERED: Ringers Solution, Lactated 1,000 ML IVC SCH (06:45)
[2017-09-23] MEDS ORDERED: Clindamycin 600 MG/50 ML 600 MG/50 ML IV.SOLN IVPB ONE (07:11)
[2017-09-23] MEDS ORDERED: Dexamethasone 4 MG/ML VIAL ONE (07:15)
[2017-09-23] MEDS ORDERED: Ondansetron 4 MG/2 ML VIAL ONE (07:15)
[2017-09-23] MEDS ORDERED: Lidocaine -MPF 2% 2 ML VIAL ONE (07:15)
[2017-09-23] MEDS ORDERED: *HR* Rocuronium Bromide 50 MG/5 ML VIAL ONE ×2 (07:15→10:38)
[2017-09-23] MEDS ORDERED: Lidocaine -MPF 4% 5 ML AMPUL ONE (07:15)
[2017-09-23] MEDS ORDERED: *HR* Midazolam HCl 2 MG/2 ML VIAL ONE (07:18)
[2017-09-23] MEDS ORDERED: *HR* FentaNYL (PF) 100 MCG/2 ML VIAL ONE (07:18)
[2017-09-23] MEDS ORDERED: *HR* Propofol 200 MG/20 ML VIAL IVP ONE (07:19)
--- NOTE | 2017-09-23 07:29 | General Surg History&Physical ---
Date of Encounter: 09/23/17 Time of Encounter: 07:26 Assessment and Plan (1) Acute diverticulitis Current Visit: No Status: Acute 62F with diverticulitis; no changes in health since last evaluation. okay to proceed with surgery; would prefer a RAIN block prior to starting; The assessment and plan as outlined above was discussed with the patient and/or family members who expressed understanding and agreement. All questions were answered. History of Present Illness Chief complaint: diverticulitis HPI: Ms. Jessica is a 62 year old female h/o hep c and multiple episodes of diverticulitis; Due to the frequency of her symptoms (last 3 episodes have been in the last 3 months) and severity of her symptoms, the decision was made to proceed with surgery. Past Med Surg Social Fam HX - Past Medical History Medical history: COPD, CVA, GERD, hyperlipidemia, hypertension, other Psychiatric history: depression - Past Surgical History Surgical History: hysterectomy - Social History Smoking Status: Current every day smoker Smokeless Tobacco Status: No Alcohol use: none Drug use: none - Family History Father Living Status: Hx Family Cardiac Disorders: Yes Hx Family Respiratory Disorders: Yes Hx Family Cancer: No Hx Family GI Disorders: No Hx Family Endocrine Disorder: No Hx Family Neuromuscular Disorders: No Hx Family Neurologic Disorders: No Hx Family HEENT Disorders: No Hx Family Autoimmune Disorders: Yes Medications and Allergies Diltiazem CD (24hr) [Cardizem CD] 180 mg PO DAILY 06/27/17 [History] Famotidine [Pepcid] 40 mg PO DAILY 06/27/17 [History] 3 Allergy/AdvReac Type Severity Reaction Status Date / Time Penicillins [PCN] Allergy Rash Verified 09/23/17 07:03 niacin AdvReac Flushing Verified 09/23/17 07:03 duracef Allergy See Uncoded 09/23/17 07:03 Comments Review of Systems All systems PM: The remainder of the systems were reviewed and are negative General Surgery Exam Initial Vital Signs Temp Pulse Resp BP Pulse Ox 98.3 F 75 18 146/82 97 09/23/17 06:22 09/23/17 06:22 09/23/17 06:22 09/23/17 06:22 09/23/17 06:22 - General physical appearance well developed, no distress - Eyes normal ocular movement - ENT normocephalic, CN 2-12 grossly intact - Neck no masses - Respiratory normal expansion, normal respiratory effort - Cardiovascular Cardiovascular exam: Present: RRR - Abdomen Abdomen general surgery: Present: soft, non tender - Integumentary Integumentary general surgery: Present: warm and dry - Neurologic Present: CN 2-12 grossly intact - Psychiatric Psychiatric general surgery: Present: A&Ox3 Results - Labs All other labs normal.
[2017-09-23] MEDS ORDERED: Bupivacaine/Clonidine Syringe 1 EACH SYRINGE ONE (07:31)
[2017-09-23] MEDS ORDERED: Famotidine 20 MG/2 ML VIAL IVP ONE (07:32)
--- NOTE | 2017-09-23 07:34 | Anesthesia Evaluation PreOp ---
Date of Encounter: 09/23/17 Time of Encounter: 07:31 - Past History Planned Operation: Laparoscopic Colon/ Sigmoid resection Cardiac History: HTN, Hyperlipidemia, Other (Per report: normal coronaries by [facility] in 2016) Pulmonary History: Former smoker (Quit /), COPD RADIATION OFFICER History: CVA (No residual weakness per patient, walks independently, reports occasional right sided numbness) Other Medical History: Hepatic (Hep B, HepC), Diabetes Type II (Borderline), GERD (Uncontrolled), Other (Diverticulosis, with recurrent diverticulitis) Anesthesia History: No Prior Anesthetic Complications, Past Anesthesia Alcohol Use: none Drug use: none Medications and Allergies Diltiazem CD (24hr) [Cardizem CD] 180 mg PO DAILY 06/27/17 [History] Famotidine [Pepcid] 40 mg PO DAILY 06/27/17 [History] 3 Allergy/AdvReac Type Severity Reaction Status Date / Time Penicillins [PCN] Allergy Rash Verified 09/23/17 07:03 niacin AdvReac Flushing Verified 09/23/17 07:03 duracef Allergy See Uncoded 09/23/17 07:03 Comments - Meds/Allergy Pre-op Review Medications Reviewed: Yes Allergies Reviewed: Yes Beta Blockers on Current Med List: No Anesthesia Results - Labs Laboratory Tests 01/04/15 04/05/17 04/08/17 23:55 11:43 11:05 Hgb Hct Plt Count PT 12.1 INR 1.1 Sodium Potassium BUN Creatinine Calcium Magnesium Total Bilirubin Direct Bilirubin AST ALT Alkaline Phosphatase B-Natriuretic Peptide 71 Serum Total Protein Albumin Hepatitis A Ab Total Hep B Core Total Ab Hepatitis C Ab Screen HCV RNA (PCR) Interp DETECTED A 04/08/17 08/21/17 08/21/17 11:05 09:45 09:45 Hgb Hct Plt Count PT INR Sodium Potassium BUN Creatinine Calcium Magnesium Total Bilirubin Direct Bilirubin 0.4 H AST ALT Alkaline Phosphatase B-Natriuretic Peptide Serum Total Protein Albumin Hepatitis A Ab Total POSITIVE A Hep B Core Total Ab POSITIVE A Hepatitis C Ab Screen Reactive H HCV RNA (PCR) Interp 08/22/17 08/23/17 09/05/17 05:28 04:52 08:43 Hgb 13.7 Hct 41.9 Plt Count 70 L PT INR Sodium Potassium BUN Creatinine Calcium 8.8 Magnesium 1.5 L Total Bilirubin 1.3 H Direct Bilirubin AST 212 H ALT 145 H Alkaline Phosphatase 137 H B-Natriuretic Peptide Serum Total Protein 6.0 L Albumin 2.8 L Hepatitis A Ab Total Hep B Core Total Ab Hepatitis C Ab Screen HCV RNA (PCR) Interp 09/05/17 08:43 Hgb Hct Plt Count PT INR Sodium 135 L Potassium 4.2 BUN 10 Creatinine 0.74 Calcium Magnesium Total Bilirubin Direct Bilirubin AST ALT Alkaline Phosphatase B-Natriuretic Peptide Serum Total Protein Albumin Hepatitis A Ab Total Hep B Core Total Ab Hepatitis C Ab Screen HCV RNA (PCR) Interp - Imaging EKG: report reviewed (06/2017 SINUS BRADYCARDIA MARKED LEFT AXIS DEVIATION) Additional studies: PFTs 01/2017: FVC 87% FEV1 74% MVV 69% Anesthesia Exam O2 Sat Height 1.55 m Height 1.55 m Weight 51.256 kg Weight 51.256 kg O2 Sat by Pulse Oximetry 97 Vital Signs Temp Pulse Resp BP Pulse Ox 98.3 F 75 18 146/82 97 09/23/17 06:22 09/23/17 06:22 09/23/17 06:22 09/23/17 06:22 09/23/17 06:22 Blood glucose: 90 NPO (# of Hours): >8 - HEENT Teeth: Edentulous - RADIATION OFFICER LOC: Oriented (Cranial nerves grossly normal) RADIATION OFFICER Motor: Normal RUE (4+/5 ), Normal LUE, Normal RLE (4+/5), Normal LLE, Normal Face - Cardiac Rhythm: Regular - Pulmonary Breath Sounds: bilateral Rhonchi Anesthesia Assess/Plan ASA Score: 3 Anesthetic Plan: General, Regional (TAP block for post op pain per surgeon request) Autologous Blood: Yes Monitoring Plan: Standard Monitors, A-Line (Possible) Recovery Plan: PACU
[2017-09-23] MEDS ORDERED: *HR* Magnesium Sulfate 1 GM/2 ML VIAL ONE (07:55)
[2017-09-23] MEDS ORDERED: *HR* Promethazine 25 MG/ML VIAL IVP PRN (08:56)
[2017-09-23] MEDS ORDERED: *HR* Morphine 2 MG/ML SYRINGE IVP PRN (08:56)
[2017-09-23] MEDS ORDERED: *HR* Labetalol 20 MG/4 ML SYRINGE IVP PRN (08:56)
[2017-09-23] MEDS ORDERED: Ondansetron 4 MG/2 ML VIAL IVP ONE (08:56)
[2017-09-23] MEDS ORDERED: Dexamethasone 4 MG/ML VIAL IVP ONE (08:56)
[2017-09-23] MEDS ORDERED: *HR* Morphine 10 MG/ML VIAL ONE (09:54)
[2017-09-23] MEDS ORDERED: Albumin Human 5% 25.0 GM/500 ML VIAL ONE (10:05)
[2017-09-23] MEDS ORDERED: Neostigmine Methylsulfate 3 MG/3 ML SYRINGE ONE (12:37)
--- NOTE | 2017-09-23 13:19 | Operative Note ---
Date of procedure: 09/23/17 Pre-op diagnosis: Intraoperative consultation Post-op diagnosis: same Procedure: #1 lysis of adhesions #2 intraoperative consultation Anesthesia: EL Surgeon: Guillermo Murphy Was there an golf player assistant present: Yes Die Maker Trim: Lexi Hicks Estimated blood loss (cc): 0 Specimen: none Condition: stable Disposition: no change Procedure in Detail: I was contacted for intraoperative consultation during planned sigmoid colectomy. Dr. Shay performed the initial operation. I was asked to see the patient for evaluation of pelvic adhesions and bleeding. I came to the operating room been summoned. Dr. Shay was in charge the patient's care. I scrubbed in and evaluated the abdomen. Patient had significant small bowel adhesions to the bladder and SIDEWALL. I performed lysis of adhesions of the small bowel completely mobilizing the small bowel out of the pelvis and mobilizing the rectum and rectosigmoid. The area of bleeding was coming from a lateral pelvic dissection close to the external iliac vein on the left side. There was no active bleeding at the time of evaluation. I placed a pack underneath the Bookwalter to apply pressure in this area. This allowed complete mobilization of the rectum and sigmoid. I discussed further conduct of the operation with Dr. Shay. Dr. Shay assumed responsibility for the operation again at this point and I left the operating room. Patient was in stable condition and still under general anesthetic under the care of Dr. Shay.
--- NOTE | 2017-09-23 13:46 | Anesthesia Procedures ---
Date of Encounter: 09/23/17 Time of Encounter: 13:30 Procedures: Anesthesia - Nerve Block Procedure Date: 09/23/17 Time: 13:30 Checklist: Correct Patient Identifier, Correct procedure, History checked Correct side: Left (bilateral left and right) Blood Thinner: No Monitor Applied: EKG, BP, Pulse Oximetry Indication: Post Op Analgesia Pre-op Neuro Deficits: No Block Type: Other (subcostal bilateral and mid axillary bilateral TAP blocks) Sterile Technique: Yes Ultrasound used: Yes Anatomy identified: Yes Visual spread of Local: Yes Neuro Stimulation: No Blood on Needle Aspiration: No Smooth Injection of Local: Yes Pain with Injection of Local: No Prep: Chlorhexadine Needle: 21 x 100 mm Stimuplex Local: 0.25% Bupivicaine w/Clonidine 20 mcg/cc (40 ml total) Volume (cc): 40 Number of Attempts: 1 Complications: None/effective block Vitals: Vital Signs/O2 Sat, Most Current Temp Pulse Resp BP Pulse Ox 98.3 F 75 18 146/82 97 09/23/17 06:22 09/23/17 06:22 09/23/17 07:47 09/23/17 07:47 09/23/17 07:47 Comments: performed by andrea lew and conrado lima CRNA'marko
[2017-09-23] MEDS ORDERED: Naloxone 0.4 MG/ML INJ IVP PRN (14:46)
[2017-09-23] MEDS ORDERED: *HR* OxyCODONE/APAP 5/325 TABLET PO PRN (15:05)
[2017-09-23] MEDS ORDERED: OXYCODONE Oral CONC 10 MG/0.5 ML ORAL.SYG SL PRN ×2 (15:05)
[2017-09-23 15:12] LABS: Basophils % 0.3 %; Eosinophils % 0.1 %; Hematocrit 30.8 % (35.3-44.9); Hemoglobin 10.1 g/dL (11.5-15.4); Immature Granulocytes % 0.4 % (0-4); Lymphocytes # 1.1 K/mcL (0.6-4.6); Lymphocytes % 7.2 %; Mean Corpuscular HGB Conc 32.8 g/dL (31.6-35.5); Mean Corpuscular Hemoglobin 31.7 pg (28.0-33.3); Mean Corpuscular Volume 96.6 fL (83.0-100.0); Mean Platelet Volume 10.6 fL (9.4-12.4); Monocytes # 1.5 K/mcL (0.0-1.3); Monocytes % 9.6 %; Neutrophils # 12.5 K/mcL (1.6-8.9); Platelet Count 134 K/mcL (140-400); Red Blood Count 3.19 M/mcL (3.82-4.97); Red Cell Distribution Width 13.5 % (11.5-14.5); Segmented Neutrophils % 82.4 %
[2017-09-23] MEDS: 0.9 % Sodium Chloride 1,000 ML IVC SCH (15:27)
[2017-09-23 15:32] LABS: BUN/Creatinine Ratio 16 (6-26); Blood Urea Nitrogen 15 mg/dL (8-23); Calcium 9.5 mg/dL (8.6-10.3); Carbon Dioxide 25 mEq/L (23-29); Chloride 108 mEq/L (98-107); Glucose 160 mg/dL (70-105); Magnesium 1.9 mg/dL (1.6-2.6); Osmolality,Calculated 296 (280-300); Phosphorous 5.7 mg/dL (2.7-4.5); Potassium 3.7 mEq/L (3.5-5.1); Sodium 141 mEq/L (136-145); eGFR For African Americans > 60 (> 60); eGFR For Non-African Americans > 60 (> 60)
[2017-09-23] MEDS ORDERED: Ketorolac 15 MG/ML VIAL IVP SCH (18:00)
--- NOTE | 2017-09-23 18:02 | Operative Note ---
Date of procedure: 09/23/17 Pre-op diagnosis: diverticulitis Post-op diagnosis: same Procedure: hand assisted laparoscopic surgery converted to open sigmoidectomy with diverting loop ileostomy Implants: none Complications: none Anesthesia: GETA Local Anesthetics: Other (RAIN block) Surgeon: Rafita Frazier Was there an public aid eligibility assistant present: Yes Underwriting Service Representative: Lexi Hicks Estimated blood loss (cc): 750 Specimen: sigmoid colon Condition: stable Disposition: PACU Procedure in Detail: The patient was brought into the operating room suite. The patient was placed in the supine position. Mechanical DVT prophylaxis was initiated. The patient underwent smooth induction of general endotracheal anesthesia. The patient was prepped and draped in the usual fashion. Preoperative antibiotics were given. A timeout was held identifying the correct patient, pathology, and procedure. Everyone was in agreement and we began a procedure. Incision to Conversion I started by a small midline incision and then placed the Calvin Wound protector. I then created 2 five mm incision for ports laterally. Upon entry it was clear that there were significant adhesions in the pelvis from her prior surgery and recurrent episodes of diverticulitis; I then converted to open. Mobilization to Resection After opening, I did spend about 20 minutes lysing adhesions so that I can utilize the bookwalter to retract the small bowel. I then mobilized along the lateral wall proximally until I reached the upper third of the descending colon. I then mobilized distally along the lateral wall to free up the colon. I also moblized medially. Should be stated that the ureter was identified and preserved. Once the section of bowel to resected was mobilized, I used the Contour stapler to staple distally to create the rectal pouch and proximally, making sure I was proximal to most proximal diverticulum. I then used the ligasure to ligate the mesentery and then passed off the specimen. Anastomosis to ileostomy I then used the automatic pursestringer to pursestring the proximal blind end and dilated up to 29mm. I then inserted the anvil and tied the sutures around it. From below the rectal pouch was dilated to 29mm and the stapler was inserted. The male prong was exposed and connected to the anvil on the proximal blind end and fired...creating the anastomosis. It should be stated that the anastamotic ring was incomplete posteriorly and thin anteriorly, so I reinforced the anastmosis with 3-0 silk sutures. Prior to reinforcment I tested the anastomosis and there were not visible air bubbles. However, due to concern about the anastamosis, the decision was made to divert the patient. I then removed the book waltter and closed the midline fascia with looped PDS suture in a running fashion. I then closed the skin with miguelina. I then created a small dime sized circular incision along the RLQ, dissected to the post fascia to retrieve a loop of small bowel (ileum). I then created my loop ileostomy by using anchoring stitches at 12, 3, 6 and 9 o clock. Then used the cut function on the cautery to open the bowel, brook the small bowel and secured it to the dermal layer or the skin circumferentially. The laparosocpic ports were closed with interrupted monocryl. the procedure was concluded and the patient was transferred to PACu in stable condition.
--- NOTE | 2017-09-23 18:29 | Anesthesia Evaluation Post Op ---
Date of Encounter: 09/23/17 Time of Encounter: 14:24 Notes: Patient's vital signs have been reviewed. Patient is stable postoperatively and has adequately recovered from anesthesia. Patient is determined to have stable airway patency and respiratory function including respiratory rate and oxygen saturation. Patient has a stable heart rate, blood pressure and adequate hydration. Patients mental status is acceptable. Patients temperature is appropriate. Pain and nausea are adequately controlled. - Discharge PostOp Status: Transfer Patient to floor
[2017-09-23] MEDS: *HR* Morphine 30 MG/ 30 ML PCA IVC PRN (19:40)
[2017-09-24] MEDS: 0.9 % Sodium Chloride 1,000 ML IVC SCH ×3 (01:20→22:18)
[2017-09-24 07:12] LABS: Basophils % 0.1 %; Hematocrit 26.9 % (35.3-44.9); Hemoglobin 8.9 g/dL (11.5-15.4); Immature Granulocytes % 0.4 % (0-4); Lymphocytes # 1.1 K/mcL (0.6-4.6); Mean Corpuscular HGB Conc 33.1 g/dL (31.6-35.5); Mean Corpuscular Hemoglobin 32.4 pg (28.0-33.3); Mean Corpuscular Volume 97.8 fL (83.0-100.0); Mean Platelet Volume 11.9 fL (9.4-12.4); Monocytes # 1.2 K/mcL (0.0-1.3); Monocytes % 8.7 %; Neutrophils # 11.4 K/mcL (1.6-8.9); Nucleated Red Blood Cells 0.1 /100 WBC (0); Platelet Count 101 K/mcL (140-400); Red Blood Count 2.75 M/mcL (3.82-4.97); Red Cell Distribution Width 13.8 % (11.5-14.5); Segmented Neutrophils % 82.8 %
[2017-09-24 07:32] LABS: BUN/Creatinine Ratio 27 (6-26); Blood Urea Nitrogen 25 mg/dL (8-23); Calcium 8.8 mg/dL (8.6-10.3); Carbon Dioxide 24 mEq/L (23-29); Chloride 110 mEq/L (98-107); Glucose 123 mg/dL (70-105); Magnesium 1.6 mg/dL (1.6-2.6); Osmolality,Calculated 294 (280-300); Phosphorous 3.8 mg/dL (2.7-4.5); Sodium 139 mEq/L (136-145); eGFR For African Americans > 60 (> 60); eGFR For Non-African Americans > 60 (> 60)
[2017-09-24] MEDS ORDERED: Diltiazem CD (24hr) 180 MG CAPSULE PO SCH (09:00)
[2017-09-24] MEDS: Famotidine 20 MG TABLET PO SCH (09:18)
--- NOTE | 2017-09-24 10:10 | General Surgery Progress Note ---
<Ric Matthews - Last Filed: 09/24/17 13:27> Date of Encounter: 09/24/17 Time of Encounter: 07:40 - Assessment and Plan (1) Acute diverticulitis Current Visit: No Status: Acute POD1 adhesionolysis, sigmoidectomy with diverting ileostomy with Dr. Shay and Dr. Murphy. Wt ct downtrending 13.8 (15.2) Hgb 8.9 (10.1) monitoring Plan: Patient still fairly distended POD1, will keep NPO with ice chips IV fluids Supportive care and pain control Strict I&Os Continuing jones catheter Incentive spirometry discussed, encouraged every 1 hour while awake PPI with Protonix daily AM labs Subjective Narrative: POD1 adhesionolysis, sigmoidectomy with diverting ileostomy with Dr. Shay and Dr. Murphy. Patient reports mild-mod pain. She has no nausea/vomiting, no BM yet. No issues with jones. She denies fever, shortness of breath, or chest discomfort. Objective Vital Signs - Last 8 Hours Temp Pulse Resp BP Pulse Ox 09/24/17 07:56 98.7 F 62 16 92/53 93 09/24/17 04:27 98.2 F 62 14 95/57 96 Intake and Output 09/23/17 09/24/17 09/24/17 23:59 07:59 15:59 Intake Total 120 / 120 1240 / 1240 781 / 781 Output Total 50 / 50 300 / 300 Balance 70 / 70 940 / 940 781 / 781 Intake: IV Fluids 1000 / 1000 781 / 781 0.9 % Sodium Chloride 1,000 ML 1000 / 1000 781 / 781 @ 100 mls/hr IVC .Q10H [facility] Rx#: [id number] Oral 120 / 120 240 / 240 Output: Catheter 50 / 50 300 / 300 Other: Meal NPO BREAKFAST Weight 51.211 kg Blood Glucose* 124 Patient Weight 09/24/17 23:59 Weight 51.211 kg - General physical appearance well developed, well nourished, no distress - Eyes normal ocular movement - ENT no congestion - Neck Neck exam: no lymphadectomy - Respiratory clear to auscultation - Cardiovascular Cardiovascular exam: Present: regular rhythm, no murmurs/rubs/gallops - Abdomen Abdomen: Present: bowel sounds present, soft Additional Comments: midline surgical site without dehiscence, 15 miguelina, no purulence or erythema. - Integumentary no abnormal pigmentation - Neurologic normal coordination, normal sensation - Psychiatric speech is normal, memory intact - Labs 09/24/17 06:30 09/24/17 06:30 Diabetes panel 09/23/17 09/24/17 Range/Units 14:54 06:30 Sodium 141 139 (136-145) mEq/L Potassium 3.7 4.0 (3.5-5.1) mEq/L Chloride 108 H 110 H (98-107) mEq/L Carbon Dioxide 25 24 (23-29) mEq/L BUN 15 25 H (8-23) mg/dL Creatinine 0.92 0.93 (0.60-1.20) mg/dL Glucose 160 H 123 H (70-105) mg/dL Calcium 9.5 8.8 (8.6-10.3) mg/dL Calcium panel 09/23/17 09/24/17 Range/Units 14:54 06:30 Calcium 9.5 8.8 (8.6-10.3) mg/dL Phosphorus 5.7 H 3.8 (2.7-4.5) mg/dL Pituitary panel 09/23/17 09/24/17 Range/Units 14:54 06:30 Sodium 141 139 (136-145) mEq/L Potassium 3.7 4.0 (3.5-5.1) mEq/L Chloride 108 H 110 H (98-107) mEq/L Carbon Dioxide 25 24 (23-29) mEq/L BUN 15 25 H (8-23) mg/dL Creatinine 0.92 0.93 (0.60-1.20) mg/dL Glucose 160 H 123 H (70-105) mg/dL Calcium 9.5 8.8 (8.6-10.3) mg/dL Adrenal panel 09/23/17 09/24/17 Range/Units 14:54 06:30 Sodium 141 139 (136-145) mEq/L Potassium 3.7 4.0 (3.5-5.1) mEq/L Chloride 108 H 110 H (98-107) mEq/L Carbon Dioxide 25 24 (23-29) mEq/L BUN 15 25 H (8-23) mg/dL Creatinine 0.92 0.93 (0.60-1.20) mg/dL Glucose 160 H 123 H (70-105) mg/dL Calcium 9.5 8.8 (8.6-10.3) mg/dL - VTE Documentation of Mechanical Device: Intermittent pneumatic compression device Consult Discharge Plan - Plan Referrals: Rafita Frazier MD [Non-Partnered Physician] - 10/05/17 1:35 pm <Dea Ozuna - Last Filed: 09/24/17 13:53> Date of Encounter: 09/24/17 - Assessment and Plan (1) S/P colectomy Current Visit: Yes Status: Acute pod#1 open sigmoid colectomy wiht loop ileostomy continue ice chips and po meds await return of bowel function prn pain control, add scheduled ofirmev, prn toradol Hb due to blood loss and dilutional - trend OOB to chair/ambulate prn antiemetics consult to wound care for ostomy teaching aggressive pulmonary toilet ileostomy pink and viable, bloody bowel sweat in appliance (2) Ileostomy care Current Visit: Yes Status: Acute (3) DVT prophylaxis Current Visit: No Status: Acute (4) Essential hypertension Current Visit: No Status: Chronic hold home medication, bp low, asymptomatic, monitor (5) Hepatitis C Current Visit: No Status: Chronic Qualifiers: Viral hepatitis chronicity: chronic Hepatic coma status: without hepatic coma Qualified Code(s): B18.2 - Chronic viral hepatitis C (6) Tobacco abuse Current Visit: No Status: Chronic Subjective Patient reports: still having pain, no flatus, no bowel movement, afebrile, other (distended, denies nausea or emesis) Objective Vital Signs - Last 8 Hours Temp Pulse Resp BP Pulse Ox 09/24/17 10:30 97.6 F 59 16 94/58 95 09/24/17 07:56 98.7 F 62 16 92/53 93 Intake and Output 09/23/17 09/24/17 09/24/17 23:59 07:59 15:59 Intake Total 120 / 120 1240 / 1240 1000 / 1000 Output Total 50 / 50 300 / 300 350 / 350 Balance 70 / 70 940 / 940 650 / 650 Intake: IV Fluids 1000 / 1000 1000 / 1000 0.9 % Sodium Chloride 1,000 ML 1000 / 1000 1000 / 1000 @ 100 mls/hr IVC .Q10H [facility] Rx#: [id number] Oral 120 / 120 240 / 240 Output: Stool 0 / 0 Catheter 50 / 50 300 / 300 350 / 350 Other: Meal NPO BREAKFAST Weight 51.211 kg Blood Glucose* 124 122 Patient Weight 09/24/17 23:59 Weight 51.211 kg - General physical appearance well developed, well nourished, moderate pain - Eyes normal ocular movement - ENT normal mucosa, normocephalic - Neck Neck exam: trachea midline - Respiratory normal expansion, clear to auscultation - Cardiovascular Cardiovascular exam: Present: RRR - Abdomen Abdomen: Present: bowel sounds present, soft, tender (appropriate post op tenderness). Absent: guarding, rebound - Incision Incision: Present: clean and dry, intact - Integumentary no abnormal pigmentation - Neurologic normal coordination, normal sensation - Musculoskeletal normal posture - Psychiatric oriented to time, oriented to person, oriented to place, speech is normal, memory intact - Labs 09/24/17 06:30 09/24/17 06:30 Vital Signs Temp Pulse Resp BP Pulse Ox 09/24/17 10:30 97.6 F 59 16 94/58 95 09/24/17 07:56 98.7 F 62 16 92/53 93 09/24/17 04:27 98.2 F 62 14 95/57 96 09/24/17 00:00 98.0 F 65 14 99/57 93 09/23/17 20:45 93 09/23/17 18:42 97.6 F 75 14 112/67 97 09/23/17 16:30 98.2 F 76 18 98/62 99 09/23/17 15:45 98.3 F 68 18 104/66 98 09/23/17 15:41 99 09/23/17 15:15 98.2 F 65 16 107/61 92 09/23/17 14:45 98.2 F 68 16 104/65 99 09/23/17 14:31 97.3 F L 62 12 107/52 100 09/23/17 14:21 97.3 F L 77 14 110/79 100 09/23/17 14:11 97.3 F L 79 14 101/70 100 09/23/17 14:01 65 12 111/60 100 09/23/17 13:51 84 14 142/85 100 Intake and Output 09/23/17 09/24/17 09/24/17 23:59 07:59 15:59 Intake Total 120 / 120 1240 / 1240 1000 / 1000 Output Total 50 / 50 300 / 300 350 / 350 Balance 70 / 70 940 / 940 650 / 650 Intake: IV Fluids 1000 / 1000 1000 / 1000 0.9 % Sodium Chloride 1,000 ML 1000 / 1000 1000 / 1000 @ 100 mls/hr IVC .Q10H [facility] Rx#: [id number] Oral 120 / 120 240 / 240 Output: Stool 0 / 0 Catheter 50 / 50 300 / 300 350 / 350 Other: Meal NPO LUNCH Weight 51.211 kg Blood Glucose* 124 122 Patient Weight 09/24/17 23:59 Weight 51.211 kg Short CBC 09/24/17 09/23/17 Range/Units 06:30 14:54 WBC 13.8 H 15.2 H (4.3-11.1) K/mcL Hgb 8.9 L 10.1 L (11.5-15.4) g/dL Hct 26.9 L 30.8 L (35.3-44.9) % Plt Count 101 L 134 L (140-400) K/mcL Neutrophils # 11.4 H 12.5 H (1.6-8.9) K/mcL BMP 09/24/17 09/23/17 Range/Units 06:30 14:54 Sodium 139 141 (136-145) mEq/L Potassium 4.0 3.7 (3.5-5.1) mEq/L Chloride 110 H 108 H (98-107) mEq/L Carbon Dioxide 24 25 (23-29) mEq/L BUN 25 H 15 (8-23) mg/dL Creatinine 0.93 0.92 (0.60-1.20) mg/dL Glucose 123 H 160 H (70-105) mg/dL Calcium 8.8 9.5 (8.6-10.3) mg/dL - Attending Attestation I examined this patient and my medical decision-making was reviewed with the Resident Physician. I agree with the documented findings, disposition and treatment plan as described except to the extent set forth below.
[2017-09-24] MEDS ORDERED: *HR* Enoxaparin 40 MG/0.4 ML SYRINGE SQ SCH ×2 (13:47→21:00)
[2017-09-24] MEDS: Acetaminophen IV 1,000 MG/100 ML INFUS..BTL IVPB SCH (15:29)
[2017-09-25] MEDS: Acetaminophen IV 1,000 MG/100 ML INFUS..BTL IVPB SCH ×4 (00:19→23:26)
[2017-09-25] MEDS: *HR* Morphine 30 MG/ 30 ML PCA IVC PRN (00:19)
[2017-09-25 05:37] LABS: Hematocrit 22.8 % (35.3-44.9); Hemoglobin 7.6 g/dL (11.5-15.4); Immature Granulocytes % 0.6 % (0-4); Immature Platelets 6.5 % (1.1-6.1); Lymphocytes # 2.1 K/mcL (0.6-4.6); Lymphocytes % 19.5 %; Mean Corpuscular HGB Conc 33.3 g/dL (31.6-35.5); Mean Corpuscular Hemoglobin 32.6 pg (28.0-33.3); Mean Corpuscular Volume 97.9 fL (83.0-100.0); Monocytes # 1.1 K/mcL (0.0-1.3); Neutrophils # 7.5 K/mcL (1.6-8.9); Nucleated Red Blood Cells 0.2 /100 WBC (0); Red Blood Count 2.33 M/mcL (3.82-4.97); Red Cell Distribution Width 13.9 % (11.5-14.5); Segmented Neutrophils % 69.9 %
[2017-09-25 05:40] LABS: Platelet Count 76 K/mcL (140-400)
[2017-09-25 05:57] LABS: BUN/Creatinine Ratio 38 (6-26); Blood Urea Nitrogen 33 mg/dL (8-23); Calcium 8.4 mg/dL (8.6-10.3); Carbon Dioxide 22 mEq/L (23-29); Chloride 110 mEq/L (98-107); Glucose 94 mg/dL (70-105); Osmolality,Calculated 289 (280-300); Potassium 4.2 mEq/L (3.5-5.1); Sodium 136 mEq/L (136-145); eGFR For African Americans > 60 (> 60); eGFR For Non-African Americans > 60 (> 60)
[2017-09-25] MEDS: Famotidine 20 MG TABLET PO SCH (08:17)
[2017-09-25] MEDS: 0.9 % Sodium Chloride 1,000 ML IVC SCH (08:31)
--- NOTE | 2017-09-25 10:42 | General Surgery Progress Note ---
<Ric Matthews - Last Filed: 09/25/17 10:47> Date of Encounter: 09/25/17 Time of Encounter: 09:45 - Assessment and Plan (1) Acute diverticulitis Current Visit: No Status: Acute POD2 adhesionolysis, sigmoidectomy with diverting ileostomy with Dr. Shay and Dr. Murphy. Wt ct downtrending 10.7 (13.8,15.2) Hgb 7.6 (8.9, 10.1) monitoring, patient denies lightheadedness, no bleed into ileostomy (contains brown non-bloody liquid) or vomiting Changed dressing today, surgical site mild serosanguinous drainage, non-purulent , miguelina intact, patient afebrile Plan: Patient's diet advanced to clear liquids IV fluids Supportive care and pain control Strict I&Os Continuing jones catheter Incentive spirometry discussed, encouraged every 1 hour while awake PPI with Protonix daily AM labs Subjective Narrative: Patient seen and evaluated, currently sitting comfortably in chair at bedside. POD2 diverting ileostomy sigmoidectomy, patient reports her pain is in good control, that there is brown liquid from her ileostomy bag, no abdominal tenderness, her wound dressing is not overly wet, she denies fever, shortness of breath, tolerating her new clear liquid diet without vomiting or nausea. Objective Vital Signs - Last 8 Hours Temp Pulse Resp BP Pulse Ox 09/25/17 07:52 97.7 F 61 18 115/66 94 09/25/17 04:24 97.6 F 63 14 96/59 91 Intake and Output 09/24/17 09/25/17 09/25/17 23:59 07:59 15:59 Intake Total 1060 / 1060 100 / 100 1100 / 1100 Output Total 950 / 950 450 / 450 Balance 110 / 110 -350 / -350 1100 / 1100 Intake: IV Fluids 1000 / 1000 100 / 100 1100 / 1100 0.9 % Sodium Chloride 1,000 ML 1000 / 1000 1000 / 1000 @ 100 mls/hr IVC .Q10H [facility] Rx#: [id number] Ofirmev 1,000 mg/100 ml 1,000 100 / 100 100 / 100 mg In 100 ml @ 400 mls/hr IVPB Q8HR [facility] Rx#:[id number] Oral 60 / 60 0 / 0 Output: Stool 50 / 50 Catheter 900 / 900 450 / 450 Other: Meal ice chips. NPO BREAKAST Weight 51.211 kg Blood Glucose* 101 94 Patient Weight 09/25/17 23:59 Weight 51.211 kg - General physical appearance well developed, well nourished, no distress - Eyes normal ocular movement - ENT normal mucosa - Neck Neck exam: no lymphadectomy - Respiratory normal expansion, clear to auscultation - Cardiovascular Cardiovascular exam: Present: RRR, regular rhythm - Abdomen Abdomen: Present: soft, non tender Additional Comments: ileostomy with brown liquid - Incision Incision: Present: draining, intact. Absent: red, swollen, inflamed, purulent - Neurologic normal sensation - Musculoskeletal normal posture - Psychiatric speech is normal, memory intact - Labs 09/25/17 05:02 09/25/17 05:02 Diabetes panel 09/25/17 Range/Units 05:02 Sodium 136 (136-145) mEq/L Potassium 4.2 (3.5-5.1) mEq/L Chloride 110 H (98-107) mEq/L Carbon Dioxide 22 L (23-29) mEq/L BUN 33 H (8-23) mg/dL Creatinine 0.87 (0.60-1.20) mg/dL Glucose 94 (70-105) mg/dL Calcium 8.4 L (8.6-10.3) mg/dL Calcium panel 09/25/17 Range/Units 05:02 Calcium 8.4 L (8.6-10.3) mg/dL Pituitary panel 09/25/17 Range/Units 05:02 Sodium 136 (136-145) mEq/L Potassium 4.2 (3.5-5.1) mEq/L Chloride 110 H (98-107) mEq/L Carbon Dioxide 22 L (23-29) mEq/L BUN 33 H (8-23) mg/dL Creatinine 0.87 (0.60-1.20) mg/dL Glucose 94 (70-105) mg/dL Calcium 8.4 L (8.6-10.3) mg/dL Adrenal panel 09/25/17 Range/Units 05:02 Sodium 136 (136-145) mEq/L Potassium 4.2 (3.5-5.1) mEq/L Chloride 110 H (98-107) mEq/L Carbon Dioxide 22 L (23-29) mEq/L BUN 33 H (8-23) mg/dL Creatinine 0.87 (0.60-1.20) mg/dL Glucose 94 (70-105) mg/dL Calcium 8.4 L (8.6-10.3) mg/dL - VTE Documentation of Mechanical Device: Intermittent pneumatic compression device Consult Discharge Plan - Plan Referrals: Rafita Frazier MD [Non-Partnered Physician] - 10/05/17 1:35 pm <Dea Ozuna - Last Filed: 09/25/17 13:43> Date of Encounter: 09/25/17 - Assessment and Plan (1) S/P colectomy Current Visit: Yes Status: Acute pod 2 sigmoid colectomy with loop ileostomy, open some liquid stool in ileostomy appliance, ok to start clears pain well controlled on current regimen. daily dressing change dc catheter in am OOB to chair with meals, ambulate gi/dvt prophylaxis aggressive pulmonary toilet patient looks very good today ileostomy pink viable and functioning (2) Ileostomy care Current Visit: Yes Status: Acute (3) DVT prophylaxis Current Visit: No Status: Acute (4) Essential hypertension Current Visit: No Status: Chronic controlled, held diltiazem due to hypotension, will restart when pressure improved, rate normal (5) Hepatitis C Current Visit: No Status: Chronic Qualifiers: Viral hepatitis chronicity: chronic Hepatic coma status: without hepatic coma Qualified Code(s): B18.2 - Chronic viral hepatitis C (6) Tobacco abuse Current Visit: No Status: Chronic (7) Anemia Current Visit: Yes Status: Acute secondary to OR blood loss and dilutional, dc lovenox, has EPCD's trend Hb, currently asymptomatic Qualifiers: Anemia type: other cause Other causes of anemia: acute posthemorrhagic Qualified Code(s): D62 - Acute posthemorrhagic anemia Subjective Patient reports: no new complaints, still having pain, pain is less, voiding w/ o difficulty (jones in place), flatus, bowel movement, afebrile Objective Vital Signs - Last 8 Hours Temp Pulse Resp BP Pulse Ox 09/25/17 11:40 97.9 F 82 18 115/74 96 09/25/17 07:52 97.7 F 61 18 115/66 94 Intake and Output 09/24/17 09/25/17 09/25/17 23:59 07:59 15:59 Intake Total 1060 / 1060 100 / 100 1100 / 1100 Output Total 950 / 950 450 / 450 100 / 100 Balance 110 / 110 -350 / -350 1000 / 1000 Intake: IV Fluids 1000 / 1000 100 / 100 1100 / 1100 0.9 % Sodium Chloride 1,000 ML 1000 / 1000 1000 / 1000 @ 100 mls/hr IVC .Q10H [facility] Rx#: [id number] Ofirmev 1,000 mg/100 ml 1,000 100 / 100 100 / 100 mg In 100 ml @ 400 mls/hr IVPB Q8HR [facility] Rx#:[id number] Oral 60 / 60 0 / 0 Output: Stool 50 / 50 100 / 100 Catheter 900 / 900 450 / 450 Other: Meal ice chips. NPO BREAKAST Stool Consistency liquid Stool Color Brown Weight 51.211 kg Blood Glucose* 101 94 Patient Weight 09/25/17 23:59 Weight 51.211 kg - General physical appearance well developed, well nourished, no distress - Eyes PERRL, normal ocular movement - ENT normal mucosa, normocephalic - Neck Neck exam: trachea midline - Respiratory normal expansion, clear to auscultation - Cardiovascular Cardiovascular exam: Present: RRR - Abdomen Abdomen: Present: bowel sounds present, soft, tender (appropriate post op tenderness) - Incision Incision: Present: clean and dry, intact - Integumentary no rash - Neurologic CN 2-12 grossly intact - Musculoskeletal normal posture - Psychiatric oriented to time, oriented to person, oriented to place, speech is normal, memory intact - Labs 09/25/17 05:02 09/25/17 05:02 Diabetes panel 09/25/17 Range/Units 05:02 Sodium 136 (136-145) mEq/L Potassium 4.2 (3.5-5.1) mEq/L Chloride 110 H (98-107) mEq/L Carbon Dioxide 22 L (23-29) mEq/L BUN 33 H (8-23) mg/dL Creatinine 0.87 (0.60-1.20) mg/dL Glucose 94 (70-105) mg/dL Calcium 8.4 L (8.6-10.3) mg/dL Calcium panel 09/25/17 Range/Units 05:02 Calcium 8.4 L (8.6-10.3) mg/dL Pituitary panel 09/25/17 Range/Units 05:02 Sodium 136 (136-145) mEq/L Potassium 4.2 (3.5-5.1) mEq/L Chloride 110 H (98-107) mEq/L Carbon Dioxide 22 L (23-29) mEq/L BUN 33 H (8-23) mg/dL Creatinine 0.87 (0.60-1.20) mg/dL Glucose 94 (70-105) mg/dL Calcium 8.4 L (8.6-10.3) mg/dL Adrenal panel 09/25/17 Range/Units 05:02 Sodium 136 (136-145) mEq/L Potassium 4.2 (3.5-5.1) mEq/L Chloride 110 H (98-107) mEq/L Carbon Dioxide 22 L (23-29) mEq/L BUN 33 H (8-23) mg/dL Creatinine 0.87 (0.60-1.20) mg/dL Glucose 94 (70-105) mg/dL Calcium 8.4 L (8.6-10.3) mg/dL - Attending Attestation I examined this patient and my medical decision-making was reviewed with the Resident Physician. I agree with the documented findings, disposition and treatment plan as described except to the extent set forth below.
[2017-09-25] MEDS ORDERED: 0.9 % Sodium Chloride 1,000 ML IVC SCH (13:03)
[2017-09-25] MEDS ORDERED: *HR* Enoxaparin 40 MG/0.4 ML SYRINGE SQ SCH (21:00)
[2017-09-25] MEDS: Ketorolac 15 MG/ML VIAL IVP PRN (21:02)
[2017-09-26 05:13] LABS: Basophils % 0.4 %; Red Cell Distribution Width 13.7 % (11.5-14.5)
[2017-09-26 05:15] LABS: Eosinophils % 0.1 %; Hematocrit 25.6 % (35.3-44.9); Hemoglobin 8.4 g/dL (11.5-15.4); Immature Granulocytes % 0.4 % (0-4); Immature Platelets 6.1 % (1.1-6.1); Lymphocytes # 2.4 K/mcL (0.6-4.6); Lymphocytes % 31.8 %; Mean Corpuscular HGB Conc 32.8 g/dL (31.6-35.5); Mean Corpuscular Hemoglobin 32.4 pg (28.0-33.3); Mean Corpuscular Volume 98.8 fL (83.0-100.0); Mean Platelet Volume 11.7 fL (9.4-12.4); Monocytes # 0.7 K/mcL (0.0-1.3); Monocytes % 9.8 %; Neutrophils # 4.4 K/mcL (1.6-8.9); Red Blood Count 2.59 M/mcL (3.82-4.97); Segmented Neutrophils % 57.5 %
[2017-09-26 05:19] LABS: Platelet Count 82 K/mcL (140-400)
[2017-09-26 05:22] LABS: BUN/Creatinine Ratio 27 (6-26); Blood Urea Nitrogen 24 mg/dL (8-23); Calcium 8.7 mg/dL (8.6-10.3); Carbon Dioxide 24 mEq/L (23-29); Chloride 109 mEq/L (98-107); Glucose 91 mg/dL (70-105); Magnesium 1.6 mg/dL (1.6-2.6); Osmolality,Calculated 286 (280-300); Phosphorous 2.4 mg/dL (2.7-4.5); Potassium 3.4 mEq/L (3.5-5.1); Sodium 136 mEq/L (136-145); eGFR For African Americans > 60 (> 60); eGFR For Non-African Americans > 60 (> 60)
[2017-09-26] MEDS: Ketorolac 15 MG/ML VIAL IVP PRN ×2 (06:12→23:05)
[2017-09-26] MEDS: *HR* Morphine 30 MG/ 30 ML PCA IVC PRN (06:20)
[2017-09-26] MEDS: Famotidine 20 MG TABLET PO SCH (08:23)
[2017-09-26] MEDS: Acetaminophen IV 1,000 MG/100 ML INFUS..BTL IVPB SCH ×3 (08:24→23:51)
[2017-09-26] MEDS ORDERED: *HR* OxyCODONE/APAP 5/325 TABLET PO PRN (09:39)
--- NOTE | 2017-09-26 09:53 | General Surgery Progress Note ---
<Kaity Ragland Senait - Last Filed: 09/26/17 09:46> Date of Encounter: 09/26/17 Time of Encounter: 09:30 - Assessment and Plan (1) Acute diverticulitis Current Visit: No Status: Acute POD #3 Hand assisted laparoscopic surgery converted to open sigmoidectomy with diverting loop ileostomy, MAHIN with Dr. Frazier Pathology pending Continue full liquid diet, add protein supplements Saline lock IV fluids Supportive care and pain control- transitioned to oral pain control Daily dressing changes Ostomy education today- notified [facility] Incentive Spirometer every 1 hour while awake PPI therapy daily Ambulate hallways TID with assistance Social service consult for discharge planning Repeat am labs- BMP (2) Hypokalemia Current Visit: Yes Status: Acute Potassium- 3.4 Replace potassium today Repeat am BMP (3) Hepatitis C Current Visit: No Status: Chronic Qualifiers: Viral hepatitis chronicity: chronic Hepatic coma status: without hepatic coma Qualified Code(s): B18.2 - Chronic viral hepatitis C (4) DVT prophylaxis Current Visit: No Status: Acute Lovenox stopped over the weekend due to drop in Hgb Continue EPCDs to bilateral lower extremities for DVT prophylaxis Ambulate hallways TID with assistance Subjective Patient reports: no new complaints, feels better, still having pain, pain is less, tolerating liquids well (full liquids), voiding w/o difficulty, flatus, bowel movement (via ostomy), afebrile Objective Vital Signs - Last 8 Hours Temp Pulse Resp BP Pulse Ox 09/26/17 08:20 98.5 F 54 14 122/70 96 09/26/17 04:31 97.9 F 98 14 121/65 92 Intake and Output 09/25/17 09/26/17 09/26/17 23:59 07:59 15:59 Intake Total 900 / 900 100 / 100 620 / 620 Output Total 2200 / 2200 500 / 500 590 / 590 Balance -1300 / -1300 -400 / -400 30 / 30 Intake: IV Fluids 100 / 100 100 / 100 100 / 100 Ofirmev 1,000 mg/100 ml 1,000 100 / 100 100 / 100 100 / 100 mg In 100 ml @ 400 mls/hr IVPB Q8HR [facility] Rx#:[id number] Oral 800 / 800 0 / 0 520 / 520 Output: Stool 650 / 650 200 / 200 450 / 450 Catheter 1550 / 1550 300 / 300 140 / 140 Other: Meal Dinner Breakfast Percent of Meal Consumed 90% 100% Stool Consistency liquid liquid Stool Color Brown Brown Brown Blood Tinged Blood Tinged Weight 51.165 kg Patient Weight 09/26/17 23:59 Weight 51.165 kg - General physical appearance well developed, well nourished, no distress - Eyes normal ocular movement - ENT normal mucosa, atraumatic, normocephalic - Neck Neck exam: trachea midline - Respiratory normal respiratory effort, clear to auscultation, other (diminished bibasilar bases) - Cardiovascular Cardiovascular exam: Present: RRR - Abdomen Abdomen: Present: bowel sounds present, soft, tender (expected post-operative tenderness), wound (Ostomy is pink and moist with positive flatus and soft, brown stool) - Incision Incision: Present: intact, serous (small amount of serous drainage noted from midline incision) - Neurologic CN 2-12 grossly intact - Psychiatric oriented to time, oriented to person, oriented to place, speech is normal, memory intact - Labs 09/26/17 04:36 09/26/17 04:36 Diabetes panel 09/26/17 Range/Units 04:36 Sodium 136 (136-145) mEq/L Potassium 3.4 L (3.5-5.1) mEq/L Chloride 109 H (98-107) mEq/L Carbon Dioxide 24 (23-29) mEq/L BUN 24 H (8-23) mg/dL Creatinine 0.89 (0.60-1.20) mg/dL Glucose 91 (70-105) mg/dL Calcium 8.7 (8.6-10.3) mg/dL Calcium panel 09/26/17 09/26/17 Range/Units 04:36 04:36 Calcium 8.7 (8.6-10.3) mg/dL Phosphorus 2.4 L (2.7-4.5) mg/dL Pituitary panel 09/26/17 Range/Units 04:36 Sodium 136 (136-145) mEq/L Potassium 3.4 L (3.5-5.1) mEq/L Chloride 109 H (98-107) mEq/L Carbon Dioxide 24 (23-29) mEq/L BUN 24 H (8-23) mg/dL Creatinine 0.89 (0.60-1.20) mg/dL Glucose 91 (70-105) mg/dL Calcium 8.7 (8.6-10.3) mg/dL Adrenal panel 09/26/17 Range/Units 04:36 Sodium 136 (136-145) mEq/L Potassium 3.4 L (3.5-5.1) mEq/L Chloride 109 H (98-107) mEq/L Carbon Dioxide 24 (23-29) mEq/L BUN 24 H (8-23) mg/dL Creatinine 0.89 (0.60-1.20) mg/dL Glucose 91 (70-105) mg/dL Calcium 8.7 (8.6-10.3) mg/dL - VTE Documentation of Mechanical Device: Intermittent pneumatic compression device Consult Discharge Plan - Plan Referrals: Rafita Frazier MD [Non-Partnered Physician] - 10/05/17 1:35 pm - Attending Attestation For this encounter, I have reviewed the [employer] or PA documentation, treatment plan, and medical decision making; and I have had face to face time with this patient. <Rafita Frazier - Last Filed: 09/26/17 13:08> Date of Encounter: 09/26/17 - Assessment and Plan (1) Acute diverticulitis Current Visit: No Status: Acute Objective Vital Signs - Last 8 Hours Temp Pulse Resp BP Pulse Ox 09/26/17 11:05 99.1 F 65 14 134/75 96 09/26/17 08:20 98.5 F 54 14 122/70 96 Intake and Output 09/25/17 09/26/17 09/26/17 23:59 07:59 15:59 Intake Total 900 / 900 100 / 100 620 / 620 Output Total 2200 / 2200 500 / 500 915 / 915 Balance -1300 / -1300 -400 / -400 -295 / -295 Intake: IV Fluids 100 / 100 100 / 100 100 / 100 Ofirmev 1,000 mg/100 ml 1,000 100 / 100 100 / 100 100 / 100 mg In 100 ml @ 400 mls/hr IVPB Q8HR [facility] Rx#:[id number] Oral 800 / 800 0 / 0 520 / 520 Output: Urine 100 / 100 Stool 650 / 650 200 / 200 675 / 675 Catheter 1550 / 1550 300 / 300 140 / 140 Other: Meal Dinner Breakfast Percent of Meal Consumed 90% 100% Stool Consistency liquid loose Stool Color Brown Brown Green Blood Tinged Blood Tinged Weight 51.165 kg Patient Weight 09/26/17 23:59 Weight 51.165 kg - Labs 09/26/17 04:36 09/26/17 04:36 Diabetes panel 09/26/17 Range/Units 04:36 Sodium 136 (136-145) mEq/L Potassium 3.4 L (3.5-5.1) mEq/L Chloride 109 H (98-107) mEq/L Carbon Dioxide 24 (23-29) mEq/L BUN 24 H (8-23) mg/dL Creatinine 0.89 (0.60-1.20) mg/dL Glucose 91 (70-105) mg/dL Calcium 8.7 (8.6-10.3) mg/dL Calcium panel 09/26/17 09/26/17 Range/Units 04:36 04:36 Calcium 8.7 (8.6-10.3) mg/dL Phosphorus 2.4 L (2.7-4.5) mg/dL Pituitary panel 09/26/17 Range/Units 04:36 Sodium 136 (136-145) mEq/L Potassium 3.4 L (3.5-5.1) mEq/L Chloride 109 H (98-107) mEq/L Carbon Dioxide 24 (23-29) mEq/L BUN 24 H (8-23) mg/dL Creatinine 0.89 (0.60-1.20) mg/dL Glucose 91 (70-105) mg/dL Calcium 8.7 (8.6-10.3) mg/dL Adrenal panel 09/26/17 Range/Units 04:36 Sodium 136 (136-145) mEq/L Potassium 3.4 L (3.5-5.1) mEq/L Chloride 109 H (98-107) mEq/L Carbon Dioxide 24 (23-29) mEq/L BUN 24 H (8-23) mg/dL Creatinine 0.89 (0.60-1.20) mg/dL Glucose 91 (70-105) mg/dL Calcium 8.7 (8.6-10.3) mg/dL - Attending Attestation I have personally seen and examined the patient. I have reviewed pertinent labs , imaging, progress notes, including this one. I agree with the above assessment and plan and wish to include the following... 62M POD #3 s/p HALS converted to open MAHIN, sigmoidectomy with diverting loop ileostomy; pain controlled; ambulating tolerating CLD, ostomy functioning; ADAT , d/c jones, cont to hold chemical dvt prophylaxis, possible restart in AM if h/ h remains stable; transition to PO pain meds; ostomy education; replete lytes; SLIV when tolerating PO; cont home meds
[2017-09-26] MEDS: *HR* OxyCODONE/APAP 10/325 TABLET PO PRN ×2 (11:03→19:35)
[2017-09-27] MEDS: *HR* OxyCODONE/APAP 10/325 TABLET PO PRN (04:35)
[2017-09-27 05:04] LABS: BUN/Creatinine Ratio 24 (6-26); Blood Urea Nitrogen 20 mg/dL (8-23); Calcium 8.5 mg/dL (8.6-10.3); Carbon Dioxide 24 mEq/L (23-29); Chloride 106 mEq/L (98-107); Glucose 101 mg/dL (70-105); Osmolality,Calculated 287 (280-300); Potassium 3.7 mEq/L (3.5-5.1); Sodium 137 mEq/L (136-145); eGFR For African Americans > 60 (> 60); eGFR For Non-African Americans > 60 (> 60)
[2017-09-27] MEDS: Acetaminophen IV 1,000 MG/100 ML INFUS..BTL IVPB SCH ×2 (08:34→16:33)
[2017-09-27] MEDS: Ketorolac 15 MG/ML VIAL IVP PRN ×2 (08:34→21:39)
[2017-09-27] MEDS: Ondansetron 4 MG/2 ML VIAL IVP PRN ×2 (08:34→20:07)
[2017-09-27] MEDS: Famotidine 20 MG TABLET PO SCH (08:49)
--- NOTE | 2017-09-27 09:11 | General Surgery Progress Note ---
Date of Encounter: 09/27/17 Time of Encounter: 09:09 - Assessment and Plan (1) Acute diverticulitis Current Visit: Yes Status: Acute 62F POD# 4 s/p HALS converted to open sigmoidectomy with diverting loop ileostomy; tolerating diet, HDS, non septic; more pain than yesterday; will add muscle relaxant to pain regimen; reassess pain in PM cont to monitor vitals; currently wnl and stable IS usage: tougher without MOLD PREPARER; will need to cont to improve pain control cont current diet; ostomy teaching follow up labs; replete lytes (K: 4.0; M.0; PO4: 3.0) start DVT prophylaxis with lovenox trend h/h ambulate in hallways today cont cares on floor; not ready for discharge Subjective Patient reports: still having pain, tolerating liquids well, flatus, bowel movement, afebrile, other (pain poorly controlled this morning after change from MOLD PREPARER to PO; ) Objective Vital Signs - Last 8 Hours Temp Pulse Resp BP Pulse Ox 09/27/17 06:35 98.7 F 71 16 111/59 96 09/27/17 03:32 98 F 57 16 114/76 96 Intake and Output 09/26/17 09/27/17 09/27/17 23:59 07:59 15:59 Intake Total 220 / 220 600 / 600 Output Total 1075 / 1075 1200 / 1200 Balance -855 / -855 -600 / -600 Intake: IV Fluids 100 / 100 100 / 100 Ofirmev 1,000 mg/100 ml 1,000 100 / 100 100 / 100 mg In 100 ml @ 400 mls/hr IVPB Q8HR [facility] Rx#:[id number] Oral 120 / 120 500 / 500 Output: Urine 300 / 300 300 / 300 Stool 775 / 775 900 / 900 Other: Meal Ensure Enlive Percent of Meal Consumed 5% Stool Consistency liquid liquid Stool Color Brown Brown Green # Voids 1 0 # Bowel Movements 1 0 Weight 63.4 kg Patient Weight 09/27/17 23:59 Weight 63.4 kg - General physical appearance no distress - Respiratory normal expansion, normal respiratory effort - Cardiovascular Cardiovascular exam: Present: RRR - Abdomen Abdomen: Present: soft, tender (along incision) Additional Comments: ostomy pink, viable; slightly edematous, functioning - Incision Incision: Present: draining (serous fluid; no erythema; ), intact - Genitourinary normal external genitalia - Integumentary no rash - Neurologic CN 2-12 grossly intact - Psychiatric oriented to time, oriented to person, oriented to place, speech is normal - Labs 09/26/17 04:36 09/27/17 04:03 Diabetes panel 09/27/17 Range/Units 04:03 Sodium 137 (136-145) mEq/L Potassium 3.7 (3.5-5.1) mEq/L Chloride 106 (98-107) mEq/L Carbon Dioxide 24 (23-29) mEq/L BUN 20 (8-23) mg/dL Creatinine 0.83 (0.60-1.20) mg/dL Glucose 101 (70-105) mg/dL Calcium 8.5 L (8.6-10.3) mg/dL Calcium panel 09/27/17 Range/Units 04:03 Calcium 8.5 L (8.6-10.3) mg/dL Pituitary panel 09/27/17 Range/Units 04:03 Sodium 137 (136-145) mEq/L Potassium 3.7 (3.5-5.1) mEq/L Chloride 106 (98-107) mEq/L Carbon Dioxide 24 (23-29) mEq/L BUN 20 (8-23) mg/dL Creatinine 0.83 (0.60-1.20) mg/dL Glucose 101 (70-105) mg/dL Calcium 8.5 L (8.6-10.3) mg/dL Adrenal panel 09/27/17 Range/Units 04:03 Sodium 137 (136-145) mEq/L Potassium 3.7 (3.5-5.1) mEq/L Chloride 106 (98-107) mEq/L Carbon Dioxide 24 (23-29) mEq/L BUN 20 (8-23) mg/dL Creatinine 0.83 (0.60-1.20) mg/dL Glucose 101 (70-105) mg/dL Calcium 8.5 L (8.6-10.3) mg/dL - VTE Documentation of Mechanical Device: Intermittent pneumatic compression device Consult Discharge Plan - Plan Referrals: Rafita Frazier MD [Non-Partnered Physician] - 10/05/17 1:35 pm
[2017-09-27 09:26] LABS: Magnesium 1.4 mg/dL (1.6-2.6); Phosphorous 3.1 mg/dL (2.7-4.5)
[2017-09-27] MEDS: *HR* OxyCODONE Immed Rel 5 MG TABLET PO PRN ×3 (13:30→18:43)
[2017-09-27] MEDS: *HR* Enoxaparin 40 MG/0.4 ML SYRINGE SQ SCH (18:41)
[2017-09-28] MEDS: *HR* OxyCODONE Immed Rel 5 MG TABLET PO PRN ×6 (02:35→23:31)
[2017-09-28] MEDS: Ketorolac 15 MG/ML VIAL IVP PRN ×2 (03:38→12:31)
[2017-09-28] MEDS: *HR* Enoxaparin 40 MG/0.4 ML SYRINGE SQ SCH (05:46)
[2017-09-28] MEDS: Ondansetron 4 MG/2 ML VIAL IVP PRN ×3 (05:56→23:34)
[2017-09-28 08:06] LABS: Hematocrit 30.7 % (35.3-44.9)
[2017-09-28 08:13] LABS: Hemoglobin 10.3 g/dL (11.5-15.4)
[2017-09-28] MEDS: Famotidine 20 MG TABLET PO SCH (08:25)
[2017-09-28 08:30] LABS: BUN/Creatinine Ratio 19 (6-26); Blood Urea Nitrogen 19 mg/dL (8-23); Calcium 9.2 mg/dL (8.6-10.3); Carbon Dioxide 27 mEq/L (23-29); Chloride 103 mEq/L (98-107); Glucose 112 mg/dL (70-105); Magnesium 1.9 mg/dL (1.6-2.6); Osmolality,Calculated 285 (280-300); Phosphorous 2.9 mg/dL (2.7-4.5); Potassium 4.4 mEq/L (3.5-5.1); Sodium 136 mEq/L (136-145); eGFR For African Americans > 60 (> 60); eGFR For Non-African Americans 55 (> 60)
--- NOTE | 2017-09-28 08:58 | General Surgery Progress Note ---
<Ric Matthews - Last Filed: 09/28/17 09:04> Date of Encounter: 09/28/17 Time of Encounter: 07:30 - Assessment and Plan (1) Acute diverticulitis Current Visit: Yes Status: Acute POD3 adhesionolysis, sigmoidectomy with diverting ileostomy with Dr. Shay and Dr. Murphy. Plan: Continue full liquid diet Monitoring volume status Starting Imodium q4h in setting of increased ileostomy output Supportive care and pain control PPI with Protonix daily Checking Mg, Phos Subjective Narrative: Ms. Jessica was seen and evaluted in her chair, POD3, reports good pain control, no fevers/dysuria, is getting up to ambulate, tolerating her diet without nausea or vomiting. She has no complaints at this time. Objective Vital Signs - Last 8 Hours Temp Pulse Resp BP Pulse Ox 09/28/17 06:43 98.8 F 62 15 153/84 98 09/28/17 03:49 98.8 F 78 15 164/85 95 Intake and Output 09/27/17 09/28/17 09/28/17 23:59 07:59 15:59 Intake Total 370 / 370 0 / 0 Output Total 825 / 825 1350 / 1350 Balance -455 / -455 -1350 / -1350 Intake: IV Fluids 250 / 250 Ofirmev 1,000 mg/100 ml 1,000 100 / 100 mg In 100 ml @ 400 mls/hr IVPB Q8HR [facility] Rx#:[id number] Magnesium Sulfate Premix 2gm/ 50 / 50 50mL 2 gm In 50 ml @ 50 mls/hr IVPB Q5H PRN Rx#:[id number] Potassium Chloride 10 mEq/100mL 100 / 100 10 meq In 100 ml @ 100 mls/hr IVPB Q1H [facility] Rx#:[id number] Oral 120 / 120 0 / 0 Output: Urine 400 / 400 450 / 450 Stool 425 / 425 900 / 900 Other: Meal Dinner Percent of Meal Consumed 25% Stool Consistency liquid liquid Stool Color Brown Brown Green Green Black Weight 62.9 kg Patient Weight 09/28/17 23:59 Weight 62.9 kg - General physical appearance well developed, well nourished, no distress - Eyes normal ocular movement - ENT normal mucosa - Neck Neck exam: no lymphadectomy - Respiratory normal expansion, normal respiratory effort, clear to auscultation - Abdomen Abdomen: Present: bowel sounds present, soft. Absent: distended, guarding, rigid Additional Comments: ileostomy secure, contains dark brown fluid - Incision Incision: Present: clean and dry, intact - Integumentary no abnormal pigmentation - Neurologic normal coordination - Musculoskeletal normal posture - Psychiatric speech is normal, memory intact - Labs 09/28/17 07:35 09/28/17 07:35 Diabetes panel 09/27/17 09/28/17 Range/Units 04:03 07:35 Sodium 137 136 (136-145) mEq/L Potassium 3.7 4.4 (3.5-5.1) mEq/L Chloride 106 103 (98-107) mEq/L Carbon Dioxide 24 27 (23-29) mEq/L BUN 20 19 (8-23) mg/dL Creatinine 0.83 1.01 (0.60-1.20) mg/dL Glucose 101 112 H (70-105) mg/dL Calcium 8.5 L 9.2 (8.6-10.3) mg/dL Calcium panel 09/27/17 09/28/17 Range/Units 04:03 07:35 Calcium 8.5 L 9.2 (8.6-10.3) mg/dL Phosphorus 3.1 2.9 (2.7-4.5) mg/dL Pituitary panel 09/27/17 09/28/17 Range/Units 04:03 07:35 Sodium 137 136 (136-145) mEq/L Potassium 3.7 4.4 (3.5-5.1) mEq/L Chloride 106 103 (98-107) mEq/L Carbon Dioxide 24 27 (23-29) mEq/L BUN 20 19 (8-23) mg/dL Creatinine 0.83 1.01 (0.60-1.20) mg/dL Glucose 101 112 H (70-105) mg/dL Calcium 8.5 L 9.2 (8.6-10.3) mg/dL Adrenal panel 09/27/17 09/28/17 Range/Units 04:03 07:35 Sodium 137 136 (136-145) mEq/L Potassium 3.7 4.4 (3.5-5.1) mEq/L Chloride 106 103 (98-107) mEq/L Carbon Dioxide 24 27 (23-29) mEq/L BUN 20 19 (8-23) mg/dL Creatinine 0.83 1.01 (0.60-1.20) mg/dL Glucose 101 112 H (70-105) mg/dL Calcium 8.5 L 9.2 (8.6-10.3) mg/dL - VTE Documentation of Mechanical Device: Intermittent pneumatic compression device Consult Discharge Plan - Plan Referrals: Rafita Frazier MD [Non-Partnered Physician] - 10/05/17 1:35 pm <Rafita Frazier - Last Filed: 09/28/17 11:41> Date of Encounter: 09/28/17 - Assessment and Plan (1) Acute diverticulitis Current Visit: Yes Status: Acute Objective Vital Signs - Last 8 Hours Temp Pulse Resp BP Pulse Ox 09/28/17 10:32 98.3 F 88 15 117/64 95 09/28/17 06:43 98.8 F 62 15 153/84 98 09/28/17 03:49 98.8 F 78 15 164/85 95 Intake and Output 09/27/17 09/28/17 09/28/17 23:59 07:59 15:59 Intake Total 370 / 370 0 / 0 Output Total 825 / 825 1350 / 1350 100 / 100 Balance -455 / -455 -1350 / -1350 -100 / -100 Intake: IV Fluids 250 / 250 Ofirmev 1,000 mg/100 ml 1,000 100 / 100 mg In 100 ml @ 400 mls/hr IVPB Q8HR [facility] Rx#:[id number] Magnesium Sulfate Premix 2gm/ 50 / 50 50mL 2 gm In 50 ml @ 50 mls/hr IVPB Q5H PRN Rx#:[id number] Potassium Chloride 10 mEq/100mL 100 / 100 10 meq In 100 ml @ 100 mls/hr IVPB Q1H [facility] Rx#:[id number] Oral 120 / 120 0 / 0 Output: Urine 400 / 400 450 / 450 100 / 100 Stool 425 / 425 900 / 900 0 / 0 Other: Meal Dinner Percent of Meal Consumed 25% Stool Consistency liquid liquid Stool Color Brown Brown Green Green Black # Bowel Movements 0 Weight 62.9 kg Patient Weight 09/28/17 23:59 Weight 62.9 kg - Labs 09/28/17 07:35 09/28/17 07:35 Diabetes panel 09/28/17 Range/Units 07:35 Sodium 136 (136-145) mEq/L Potassium 4.4 (3.5-5.1) mEq/L Chloride 103 (98-107) mEq/L Carbon Dioxide 27 (23-29) mEq/L BUN 19 (8-23) mg/dL Creatinine 1.01 (0.60-1.20) mg/dL Glucose 112 H (70-105) mg/dL Calcium 9.2 (8.6-10.3) mg/dL Calcium panel 09/28/17 Range/Units 07:35 Calcium 9.2 (8.6-10.3) mg/dL Phosphorus 2.9 (2.7-4.5) mg/dL Pituitary panel 09/28/17 Range/Units 07:35 Sodium 136 (136-145) mEq/L Potassium 4.4 (3.5-5.1) mEq/L Chloride 103 (98-107) mEq/L Carbon Dioxide 27 (23-29) mEq/L BUN 19 (8-23) mg/dL Creatinine 1.01 (0.60-1.20) mg/dL Glucose 112 H (70-105) mg/dL Calcium 9.2 (8.6-10.3) mg/dL Adrenal panel 09/28/17 Range/Units 07:35 Sodium 136 (136-145) mEq/L Potassium 4.4 (3.5-5.1) mEq/L Chloride 103 (98-107) mEq/L Carbon Dioxide 27 (23-29) mEq/L BUN 19 (8-23) mg/dL Creatinine 1.01 (0.60-1.20) mg/dL Glucose 112 H (70-105) mg/dL Calcium 9.2 (8.6-10.3) mg/dL - Attending Attestation I have personally seen and examined the patient. I have reviewed pertinent labs , imaging, progress notes, including this one. I have discussed with the resident in detail the assessment and plan. I agree with the above assessment and plan.
[2017-09-29] MEDS: Ketorolac 15 MG/ML VIAL IVP PRN ×3 (02:02→15:54)
[2017-09-29 05:06] LABS: Calcium 8.8 mg/dL (8.6-10.3); Potassium 4.5 mEq/L (3.5-5.1)
[2017-09-29] MEDS: *HR* OxyCODONE Immed Rel 5 MG TABLET PO PRN ×3 (05:08→23:59)
[2017-09-29] MEDS: *HR* Enoxaparin 40 MG/0.4 ML SYRINGE SQ SCH (05:09)
[2017-09-29] MEDS: Ondansetron 4 MG/2 ML VIAL IVP PRN ×2 (08:45→20:21)
[2017-09-29] MEDS: 0.9 % Sodium Chloride 1,000 ML IVC SCH ×2 (08:46→22:21)
[2017-09-29] MEDS: Famotidine 20 MG TABLET PO SCH (08:46)
[2017-09-29 09:41] LABS: Magnesium 2.3 mg/dL (1.6-2.6)
--- NOTE | 2017-09-29 10:16 | General Surgery Progress Note ---
Addendum entered and electronically signed by Ric Matthews DO 09/29/17 15:01: Correction: POD6 adhesionolysis, sigmoidectomy with diverting ileostomy Original Note: <Ric Matthews - Last Filed: 09/29/17 13:14> Date of Encounter: 09/29/17 Time of Encounter: 08:00 - Assessment and Plan (1) Acute diverticulitis Current Visit: Yes Status: Acute POD4 adhesionolysis, sigmoidectomy with diverting ileostomy with Dr. Shay and Dr. Murphy. Plan: Continue full liquid diet Monitoring volume status; NS 75cc/hr Increasing Imodium to 4mg q4h in setting of increased ileostomy output; improved Supportive care and pain control PPI with Protonix daily Checking Mg, Phos Subjective Patient reports: no new complaints, tolerating liquids well, voiding w/o difficulty, afebrile Objective Vital Signs - Last 8 Hours Temp Pulse Resp BP Pulse Ox 09/29/17 07:13 98.7 F 82 18 106/69 96 09/29/17 03:48 98.4 F 77 15 107/65 95 Intake and Output 09/28/17 09/29/17 09/29/17 23:59 07:59 15:59 Intake Total 120 / 120 240 / 240 0 / 0 Output Total 625 / 625 975 / 975 Balance -505 / -505 -735 / -735 0 / 0 Intake: Oral 120 / 120 240 / 240 0 / 0 Output: Urine 300 / 300 300 / 300 Stool 325 / 325 675 / 675 Other: Percent of Meal Consumed 0% Stool Consistency liquid Stool Color Brown Black Weight 62.823 kg Patient Weight 09/29/17 23:59 Weight 62.823 kg - General physical appearance well developed, well nourished, no distress - Eyes normal ocular movement - ENT normal mucosa - Neck Neck exam: no lymphadectomy - Respiratory normal expansion, normal respiratory effort, clear to auscultation - Cardiovascular Cardiovascular exam: Present: RRR, no murmurs/rubs/gallops. Absent: JVD - Abdomen Abdomen: Present: soft, non tender. Absent: guarding, rebound, rigid - Incision Incision: Present: clean and dry (changed at 0800), intact - Neurologic normal sensation - Musculoskeletal normal posture - Psychiatric speech is normal, memory intact - Labs 09/28/17 07:35 09/29/17 04:05 Diabetes panel 09/29/17 Range/Units 04:05 Sodium 132 L (136-145) mEq/L Potassium 4.5 (3.5-5.1) mEq/L Chloride 97 L (98-107) mEq/L Carbon Dioxide 29 (23-29) mEq/L BUN 24 H (8-23) mg/dL Creatinine 1.17 (0.60-1.20) mg/dL Glucose 140 H (70-105) mg/dL Calcium 8.8 (8.6-10.3) mg/dL Calcium panel 09/29/17 Range/Units 04:05 Calcium 8.8 (8.6-10.3) mg/dL Pituitary panel 09/29/17 Range/Units 04:05 Sodium 132 L (136-145) mEq/L Potassium 4.5 (3.5-5.1) mEq/L Chloride 97 L (98-107) mEq/L Carbon Dioxide 29 (23-29) mEq/L BUN 24 H (8-23) mg/dL Creatinine 1.17 (0.60-1.20) mg/dL Glucose 140 H (70-105) mg/dL Calcium 8.8 (8.6-10.3) mg/dL Adrenal panel 09/29/17 Range/Units 04:05 Sodium 132 L (136-145) mEq/L Potassium 4.5 (3.5-5.1) mEq/L Chloride 97 L (98-107) mEq/L Carbon Dioxide 29 (23-29) mEq/L BUN 24 H (8-23) mg/dL Creatinine 1.17 (0.60-1.20) mg/dL Glucose 140 H (70-105) mg/dL Calcium 8.8 (8.6-10.3) mg/dL - VTE Documentation of Mechanical Device: Intermittent pneumatic compression device Consult Discharge Plan - Plan Referrals: Rafita Frazier MD [Non-Partnered Physician] - 10/05/17 1:35 pm <Rafita Frazier - Last Filed: 09/29/17 15:21> Date of Encounter: 09/29/17 - Assessment and Plan (1) Acute diverticulitis Current Visit: Yes Status: Acute Objective Vital Signs - Last 8 Hours Temp Pulse Resp BP Pulse Ox 09/29/17 14:26 98.3 F 70 14 105/68 96 09/29/17 11:08 98.1 F 54 14 99/63 98 Intake and Output 09/28/17 09/29/17 09/29/17 23:59 07:59 15:59 Intake Total 120 / 120 240 / 240 450 / 450 Output Total 625 / 625 975 / 975 500 / 500 Balance -505 / -505 -735 / -735 -50 / -50 Intake: IV Fluids 50 / 50 Magnesium Sulfate Premix 2gm/ 50 / 50 50mL 2 gm In 50 ml @ 50 mls/hr IVPB Q5H PRN Rx#:[id number] Oral 120 / 120 240 / 240 400 / 400 Output: Urine 300 / 300 300 / 300 0 / 0 Stool 325 / 325 675 / 675 500 / 500 Other: Meal Lunch Percent of Meal Consumed 0% Stool Consistency liquid Stool Color Brown Brown Black Green Weight 62.823 kg Patient Weight 09/29/17 23:59 Weight 62.823 kg - Labs 09/28/17 07:35 09/29/17 04:05 Diabetes panel 09/29/17 Range/Units 04:05 Sodium 132 L (136-145) mEq/L Potassium 4.5 (3.5-5.1) mEq/L Chloride 97 L (98-107) mEq/L Carbon Dioxide 29 (23-29) mEq/L BUN 24 H (8-23) mg/dL Creatinine 1.17 (0.60-1.20) mg/dL Glucose 140 H (70-105) mg/dL Calcium 8.8 (8.6-10.3) mg/dL Calcium panel 09/29/17 Range/Units 04:05 Calcium 8.8 (8.6-10.3) mg/dL Phosphorus 3.3 (2.7-4.5) mg/dL Pituitary panel 09/29/17 Range/Units 04:05 Sodium 132 L (136-145) mEq/L Potassium 4.5 (3.5-5.1) mEq/L Chloride 97 L (98-107) mEq/L Carbon Dioxide 29 (23-29) mEq/L BUN 24 H (8-23) mg/dL Creatinine 1.17 (0.60-1.20) mg/dL Glucose 140 H (70-105) mg/dL Calcium 8.8 (8.6-10.3) mg/dL Adrenal panel 09/29/17 Range/Units 04:05 Sodium 132 L (136-145) mEq/L Potassium 4.5 (3.5-5.1) mEq/L Chloride 97 L (98-107) mEq/L Carbon Dioxide 29 (23-29) mEq/L BUN 24 H (8-23) mg/dL Creatinine 1.17 (0.60-1.20) mg/dL Glucose 140 H (70-105) mg/dL Calcium 8.8 (8.6-10.3) mg/dL - Attending Attestation I have personally seen and examined the patient. I have reviewed pertinent labs , imaging, progress notes, including this one. I agree with the above assessment and plan and wish to include the following... afebrile; pain controlled; tolerating diet; ostomy functioning; last 24hr, output was 1L+; so far at about 800; will cont to monitor patient and control ileostomy output until < 1L x 24hrs; okay to advance diet; cont IVF; re- evaluate labs in AM; replete gareth
[2017-09-29 10:45] LABS: Phosphorous 3.3 mg/dL (2.7-4.5)
[2017-09-30] MEDS: Ondansetron 4 MG/2 ML VIAL IVP PRN ×2 (02:23→22:55)
[2017-09-30] MEDS: *HR* OxyCODONE Immed Rel 5 MG TABLET PO PRN ×4 (04:31→22:14)
[2017-09-30 05:41] LABS: Eosinophils % 0.4 %; Mean Corpuscular HGB Conc 33.3 g/dL (31.6-35.5)
[2017-09-30 05:43] LABS: Basophils % 0.4 %; Hematocrit 26.7 % (35.3-44.9); Hemoglobin 8.9 g/dL (11.5-15.4); Immature Granulocytes % 0.8 % (0-4); Immature Platelets 4.3 % (1.1-6.1); Lymphocytes # 1.1 K/mcL (0.6-4.6); Lymphocytes % 15.2 %; Mean Corpuscular Volume 98.9 fL (83.0-100.0); Mean Platelet Volume 11.5 fL (9.4-12.4); Monocytes # 0.8 K/mcL (0.0-1.3); Monocytes % 11.4 %; Neutrophils # 5.2 K/mcL (1.6-8.9); Segmented Neutrophils % 71.8 %
[2017-09-30 05:48] LABS: Platelet Count 85 K/mcL (140-400)
[2017-09-30] MEDS: *HR* Enoxaparin 40 MG/0.4 ML SYRINGE SQ SCH (05:48)
[2017-09-30 06:02] LABS: Calcium 8.1 mg/dL (8.6-10.3); Potassium 4.4 mEq/L (3.5-5.1)
[2017-09-30] MEDS ORDERED: Diphenoxylate/Atropine 1 TAB TABLET PO PRN (08:49)
[2017-09-30] MEDS ORDERED: Psyllium 1 PACKET POWD.PACK PO SCH (09:45)
--- NOTE | 2017-09-30 09:59 | General Surgery Progress Note ---
<Ric Matthews - Last Filed: 09/30/17 10:06> Date of Encounter: 09/30/17 Time of Encounter: 07:00 - Assessment and Plan (1) Acute diverticulitis Current Visit: Yes Status: Acute POD7 adhesionolysis, sigmoidectomy with diverting ileostomy with Dr. Shay and Dr. Murphy. Fever overnight resolved after therapeutic cooling, tmax 101.9; currently afebrile, wound is changed daily AM (clean and dry), ileostomy bag continues to have mild-moderate output, she is without cough/congestion, distension, n/v, or dysuria, alert and oriented, pain in control, will monitor Plan: Continue regular diet, monitoring for n/v/distention Daily ABD/Medipore dressing Monitoring volume status; NS 75cc/hr Continuing Imodium 4mg q4h goal to reach <1L/24h period Supportive care and pain control PPI with Protonix daily Subjective Narrative: Patient experienced a fever overnight, since resolved after therapeutic cooling , tmax of 101.9, patient reports good pain control, no nausea/vomiting/ distension, incision has been examined and dressing changed daily with ABD/ medipore, patient afebrile, without cough/dyspnea, or dysuria. Objective Vital Signs - Last 8 Hours Temp Pulse Resp BP Pulse Ox 09/30/17 06:49 98.6 F 62 14 101/60 95 09/30/17 05:30 98.4 F 76 16 106/60 96 09/30/17 03:26 98.5 F 89 14 131/77 93 Intake and Output 09/29/17 09/30/17 09/30/17 23:59 07:59 15:59 Intake Total 847 / 847 340 / 340 480 / 480 Output Total 600 / 600 625 / 625 550 / 550 Balance 247 / 247 -285 / -285 -70 / -70 Intake: IV Fluids 487 / 487 0.9 % Sodium Chloride 1,000 ML 487 / 487 @ 75 mls/hr IVC .[id number] [facility] Rx #:[id number] Oral 360 / 360 340 / 340 480 / 480 Output: Urine 200 / 200 200 / 200 100 / 100 Stool 400 / 400 425 / 425 450 / 450 Other: Meal Dinner Breakfast Percent of Meal Consumed 75% 30% Stool Consistency liquid liquid Stool Color Brown - General physical appearance well developed, well nourished, no distress - Eyes normal ocular movement - ENT normal mucosa - Neck Neck exam: no lymphadectomy - Respiratory normal expansion, normal respiratory effort, clear to auscultation - Cardiovascular Cardiovascular exam: Present: RRR, no murmurs/rubs/gallops. Absent: JVD - Abdomen Abdomen: Present: bowel sounds present, soft, non tender. Absent: guarding, rebound, rigid - Incision Incision: Present: clean and dry, intact. Absent: inflamed, erythema - Integumentary no abnormal pigmentation - Neurologic normal sensation - Psychiatric speech is normal, memory intact - Labs 09/30/17 05:11 09/30/17 05:11 Diabetes panel 09/30/17 Range/Units 05:11 Sodium 134 L (136-145) mEq/L Potassium 4.4 (3.5-5.1) mEq/L Chloride 100 (98-107) mEq/L Carbon Dioxide 28 (23-29) mEq/L BUN 26 H (8-23) mg/dL Creatinine 1.37 H (0.60-1.20) mg/dL Glucose 122 H (70-105) mg/dL Calcium 8.1 L (8.6-10.3) mg/dL Calcium panel 09/29/17 09/30/17 Range/Units 04:05 05:11 Calcium 8.1 L (8.6-10.3) mg/dL Phosphorus 3.3 (2.7-4.5) mg/dL Pituitary panel 09/30/17 Range/Units 05:11 Sodium 134 L (136-145) mEq/L Potassium 4.4 (3.5-5.1) mEq/L Chloride 100 (98-107) mEq/L Carbon Dioxide 28 (23-29) mEq/L BUN 26 H (8-23) mg/dL Creatinine 1.37 H (0.60-1.20) mg/dL Glucose 122 H (70-105) mg/dL Calcium 8.1 L (8.6-10.3) mg/dL Adrenal panel 09/30/17 Range/Units 05:11 Sodium 134 L (136-145) mEq/L Potassium 4.4 (3.5-5.1) mEq/L Chloride 100 (98-107) mEq/L Carbon Dioxide 28 (23-29) mEq/L BUN 26 H (8-23) mg/dL Creatinine 1.37 H (0.60-1.20) mg/dL Glucose 122 H (70-105) mg/dL Calcium 8.1 L (8.6-10.3) mg/dL - VTE Documentation of Mechanical Device: Intermittent pneumatic compression device Consult Discharge Plan - Plan Referrals: Rafita Frazier MD [Non-Partnered Physician] - 10/05/17 1:35 pm <Rafita Frazier - Last Filed: 09/30/17 18:31> Date of Encounter: 09/30/17 - Assessment and Plan (1) Acute diverticulitis Current Visit: Yes Status: Acute Objective Vital Signs - Last 8 Hours Temp Pulse Resp BP Pulse Ox 09/30/17 16:23 99.2 F 91 16 136/80 97 09/30/17 10:30 98.4 F 72 16 126/69 100 Intake and Output 09/30/17 09/30/17 09/30/17 07:59 15:59 23:59 Intake Total 340 / 340 2780 / 2780 Output Total 625 / 625 1450 / 1450 200 / 200 Balance -285 / -285 1330 / 1330 -200 / -200 Intake: IV Fluids 2300 / 2300 0.9 % Sodium Chloride 1,000 ML 2300 / 2300 @ 3750 mls/hr IVC .Q16M [facility] Rx# :[id number] Oral 340 / 340 480 / 480 Output: Urine 200 / 200 450 / 450 200 / 200 Stool 425 / 425 1000 / 1000 Other: Meal Breakfast Percent of Meal Consumed 30% Stool Consistency liquid loose Stool Characteristics Mucoid Stool Color Brown Yellow - Labs 09/30/17 05:11 09/30/17 05:11 Diabetes panel 09/30/17 Range/Units 05:11 Sodium 134 L (136-145) mEq/L Potassium 4.4 (3.5-5.1) mEq/L Chloride 100 (98-107) mEq/L Carbon Dioxide 28 (23-29) mEq/L BUN 26 H (8-23) mg/dL Creatinine 1.37 H (0.60-1.20) mg/dL Glucose 122 H (70-105) mg/dL Calcium 8.1 L (8.6-10.3) mg/dL Calcium panel 09/30/17 Range/Units 05:11 Calcium 8.1 L (8.6-10.3) mg/dL Pituitary panel 09/30/17 Range/Units 05:11 Sodium 134 L (136-145) mEq/L Potassium 4.4 (3.5-5.1) mEq/L Chloride 100 (98-107) mEq/L Carbon Dioxide 28 (23-29) mEq/L BUN 26 H (8-23) mg/dL Creatinine 1.37 H (0.60-1.20) mg/dL Glucose 122 H (70-105) mg/dL Calcium 8.1 L (8.6-10.3) mg/dL Adrenal panel 09/30/17 Range/Units 05:11 Sodium 134 L (136-145) mEq/L Potassium 4.4 (3.5-5.1) mEq/L Chloride 100 (98-107) mEq/L Carbon Dioxide 28 (23-29) mEq/L BUN 26 H (8-23) mg/dL Creatinine 1.37 H (0.60-1.20) mg/dL Glucose 122 H (70-105) mg/dL Calcium 8.1 L (8.6-10.3) mg/dL - Attending Attestation I have personally seen and examined the patient. I have reviewed pertinent labs , imaging, progress notes, including this one. I agree with the above assessment and plan and wish to include the following... still with high ileostomy output, fever overnight; added lomotil bolus 2L 2/2 acute renal failure replete lytes labs in AM ostomy education cultures pending UA contaminated
[2017-09-30] MEDS: 0.9 % Sodium Chloride 1,000 ML IVC SCH ×3 (10:09→14:00)
[2017-09-30] MEDS: Famotidine 20 MG TABLET PO SCH (10:09)
[2017-09-30] MEDS: Psyllium 1 PACKET POWD.PACK PO SCH ×2 (10:15→20:35)
[2017-09-30 11:22] LABS: Bilirubin,Urine Small (Negative); Blood,Urine Negative (Negative); Color,Urine Dark Yellow (Yellow); Glucose,Urine (UA) Normal (Normal); Ketones,Urine Negative (Negative); Leukocyte Esterase,Urine Moderate (Negative); Nitrite,Urine Positive (Negative); Protein,Urine Negative (Neg-Trace); Specific Gravity,Urine 1.023 (1.010-1.025); Urobilinogen,Urine Normal (Normal)
[2017-09-30 11:24] LABS: Bacteria,Urine Many per hpf (None-Few); Hyaline Casts,Urine None Seen per lpf (None-Few); Squamous Epithelial Cell,Urine Many per lpf (None-Few); WBC,Urine 30-50 per hpf (0-3)
[2017-09-30 11:26] LABS: Clarity,Urine Slightly Hazy (Clear)
[2017-09-30 11:35] LABS: Yeast,Urine Few per hpf (None Seen)
[2017-10-01] MEDS: Ketorolac 15 MG/ML VIAL IVP PRN (02:33)
[2017-10-01] MEDS: Ondansetron 4 MG/2 ML VIAL IVP PRN ×3 (05:49→17:10)
[2017-10-01] MEDS: 0.9 % Sodium Chloride 1,000 ML IVC SCH (08:01)
[2017-10-01] MEDS: *HR* OxyCODONE Immed Rel 5 MG TABLET PO PRN ×3 (08:01→17:10)
--- NOTE | 2017-10-01 09:46 | General Surgery Progress Note ---
<Gal Mckeon - Last Filed: 10/01/17 16:12> Date of Encounter: 10/01/17 Time of Encounter: 08:45 - Assessment and Plan (1) Acute diverticulitis Current Visit: Yes Status: Acute POD #8 s/p adhesionolysis, sigmoidectomy with diverting ileostomy with Dr. Shay and Dr. Murphy. Pt had high volume output of illeostomy bad yesterday, less output today. Patient N,V through out the night and today. Cr improved from 1.37 to 1.22 Plan: Continue advanced soft diet, Daily ABD/Medipore dressing Monitoring volume status; continue NS 75cc/hr while Cr elevated Supportive care and pain control PPI with Protonix daily Start Scopolamine patch for N/V reduced prn lomotil to BID. Subjective Patient reports: still having pain, voiding w/o difficulty, nausea, vomiting, fever Narrative: Patient seen and examined by me at bedside Patient reports Nausea and vomiting all night. Patient received Zofran at 8am observed patient vomiting at 8:45. Patient reports being feverish. Pt had igh temperatures yesterday night(101.9, 99.7, 101.1) overnight tonight just one elevated temp of 99.8. Patient reports seepage of her incision. Dressing last changed yesterday does have serosanguinous drainage on inner gauze. Illeostomy output has slowed down from high output yesterday. Objective Vital Signs - Last 8 Hours Temp Pulse Resp BP Pulse Ox 10/01/17 06:29 98.3 F 75 18 132/86 97 10/01/17 04:18 98.7 F 62 18 127/78 98 Intake and Output 09/30/17 10/01/17 10/01/17 23:59 07:59 15:59 Intake Total 840 / 840 1050 / 1050 0 / 0 Output Total 300 / 300 875 / 875 Balance 540 / 540 175 / 175 0 / 0 Intake: IV Fluids 1000 / 1000 0.9 % Sodium Chloride 1,000 ML 1000 / 1000 @ 75 mls/hr IVC .[id number] [facility] Rx #:[id number] Oral 840 / 840 50 / 50 0 / 0 Output: Urine 300 / 300 400 / 400 Stool 0 / 0 Emesis 475 / 475 Other: Meal Dinner Breakfast Percent of Meal Consumed 0% 0% # Bowel Movements 0 Weight 63.7 kg Patient Weight 10/01/17 23:59 Weight 63.7 kg - General physical appearance moderate distress - Eyes normal ocular movement - ENT no hearing loss, no congestion - Neck Neck exam: trachea midline - Respiratory normal expansion, normal respiratory effort, clear to auscultation - Cardiovascular Cardiovascular exam: Present: RRR, no murmurs/rubs/gallops - Abdomen Abdomen: Present: bowel sounds present, soft, tender Abdominal Tenderness: diffusely (mild) - Incision Incision: Present: draining, intact, serosanguinous - Integumentary no abnormal pigmentation - Neurologic CN 2-12 grossly intact - Musculoskeletal normal posture - Psychiatric oriented to time, oriented to person, oriented to place, speech is normal - Labs 10/01/17 08:19 10/01/17 10:27 - VTE Documentation of Mechanical Device: Intermittent pneumatic compression device Consult Discharge Plan - Plan Referrals: Rafita Frazier MD [Non-Partnered Physician] - 10/05/17 1:35 pm <Rafita Frazier - Last Filed: 10/01/17 22:29> Date of Encounter: 10/01/17 - Assessment and Plan (1) Acute diverticulitis Current Visit: Yes Status: Acute Objective Vital Signs - Last 8 Hours Temp Pulse Resp BP Pulse Ox 10/01/17 19:03 98.7 F 61 15 143/79 95 10/01/17 15:16 97.9 F 71 14 149/83 99 Intake and Output 10/01/17 10/01/17 10/01/17 07:59 15:59 23:59 Intake Total 1050 / 1050 0 / 0 170 / 170 Output Total 975 / 975 150 / 150 0 / 0 Balance 75 / 75 -150 / -150 170 / 170 Intake: IV Fluids 1000 / 1000 0.9 % Sodium Chloride 1,000 ML 1000 / 1000 @ 75 mls/hr IVC .[id number] [facility] Rx #:[id number] Oral 50 / 50 0 / 0 170 / 170 Output: Urine 450 / 450 150 / 150 0 / 0 Stool 50 / 50 0 / 0 Emesis 475 / 475 Other: Meal Lunch Dinner Percent of Meal Consumed 0% 0% Stool Consistency loose Stool Color Brown Weight 63.7 kg Patient Weight 10/01/17 23:59 Weight 63.7 kg - Labs 10/01/17 08:19 10/01/17 10:27 Diabetes panel 10/01/17 Range/Units 10:27 Sodium 135 L (136-145) mEq/L Potassium 4.9 (3.5-5.1) mEq/L Chloride 101 (98-107) mEq/L Carbon Dioxide 27 (23-29) mEq/L BUN 23 (8-23) mg/dL Creatinine 1.22 H (0.60-1.20) mg/dL Glucose 125 H (70-105) mg/dL Calcium 8.4 L (8.6-10.3) mg/dL Calcium panel 10/01/17 Range/Units 10:27 Calcium 8.4 L (8.6-10.3) mg/dL Phosphorus 3.1 (2.7-4.5) mg/dL Pituitary panel 10/01/17 Range/Units 10:27 Sodium 135 L (136-145) mEq/L Potassium 4.9 (3.5-5.1) mEq/L Chloride 101 (98-107) mEq/L Carbon Dioxide 27 (23-29) mEq/L BUN 23 (8-23) mg/dL Creatinine 1.22 H (0.60-1.20) mg/dL Glucose 125 H (70-105) mg/dL Calcium 8.4 L (8.6-10.3) mg/dL Adrenal panel 10/01/17 Range/Units 10:27 Sodium 135 L (136-145) mEq/L Potassium 4.9 (3.5-5.1) mEq/L Chloride 101 (98-107) mEq/L Carbon Dioxide 27 (23-29) mEq/L BUN 23 (8-23) mg/dL Creatinine 1.22 H (0.60-1.20) mg/dL Glucose 125 H (70-105) mg/dL Calcium 8.4 L (8.6-10.3) mg/dL - Attending Attestation Patient seen and examined. All labs, vitals, imaging, and notes were reviewed, including this one. The plan and assessment was discussed with the resident. I agree with the above assessment and plan above and wish to add the following... vomiting overnight; imaging unremarkable; abdomen is soft, ostomy functioning. likley related to antidiarrheals; d/c lomotil; cont diet, imodium, and fiber; cont with ostomy education; replete lytes;
[2017-10-01 09:59] LABS: Basophils % 0.1 %; Eosinophils % 0.1 %; Hematocrit 30.9 % (35.3-44.9); Hemoglobin 10.1 g/dL (11.5-15.4); Immature Granulocytes % 0.6 % (0-4); Lymphocytes # 1.1 K/mcL (0.6-4.6); Lymphocytes % 12.3 %; Mean Corpuscular HGB Conc 32.7 g/dL (31.6-35.5); Mean Corpuscular Hemoglobin 32.4 pg (28.0-33.3); Monocytes # 1.1 K/mcL (0.0-1.3); Monocytes % 13.1 %; Neutrophils # 6.4 K/mcL (1.6-8.9); Nucleated Red Blood Cells 0.2 /100 WBC (0); Platelet Count 108 K/mcL (140-400); Red Blood Count 3.12 M/mcL (3.82-4.97); Red Cell Distribution Width 15.9 % (11.5-14.5); Segmented Neutrophils % 73.8 %
[2017-10-01] MEDS: *HR* Enoxaparin 40 MG/0.4 ML SYRINGE SQ SCH (10:55)
[2017-10-01] MEDS: Psyllium 1 PACKET POWD.PACK PO SCH ×3 (11:01→20:19)
[2017-10-01] MEDS: Famotidine 20 MG TABLET PO SCH (11:04)
[2017-10-01] MEDS ORDERED: Diphenoxylate/Atropine 1 TAB TABLET PO PRN (11:43)
[2017-10-01 11:50] LABS: Calcium 8.4 mg/dL (8.6-10.3); Phosphorous 3.1 mg/dL (2.7-4.5); Potassium 4.9 mEq/L (3.5-5.1)
[2017-10-01] MEDS ORDERED: Scopolamine Patch 1.5 MG PATCH.TD72 TD SCH (13:00)
[2017-10-02] MEDS: Ketorolac 15 MG/ML VIAL IVP PRN ×2 (00:01→15:46)
[2017-10-02] MEDS: Ondansetron 4 MG/2 ML VIAL IVP PRN ×5 (03:42→20:04)
[2017-10-02 05:15] LABS: Calcium 8.7 mg/dL (8.6-10.3); Phosphorous 3.9 mg/dL (2.7-4.5); Potassium 4.2 mEq/L (3.5-5.1)
[2017-10-02] MEDS: *HR* Enoxaparin 40 MG/0.4 ML SYRINGE SQ SCH (05:25)
[2017-10-02] MEDS: Psyllium 1 PACKET POWD.PACK PO SCH (07:51)
[2017-10-02] MEDS: 0.9 % Sodium Chloride 1,000 ML IVC SCH ×8 (08:48→19:11)
[2017-10-02] MEDS ORDERED: Psyllium 1 PACKET POWD.PACK PO SCH (09:00)
[2017-10-02] MEDS ORDERED: Famotidine 20 MG TABLET PO SCH (09:00)
--- NOTE | 2017-10-02 11:16 | General Surgery Progress Note ---
<Gal Mckeon - Last Filed: 10/02/17 13:58> Date of Encounter: 10/02/17 Time of Encounter: 08:00 - Assessment and Plan (1) Acute diverticulitis Current Visit: Yes Status: Acute POD #9 s/p adhesionolysis, sigmoidectomy with diverting ileostomy with Dr. Shay and Dr. Murphy. Pt had high volume output of illeostomy bag 2 days ago, scant output yesterday. Patient N,V through out yesterday and overnight. Cr still elevated Plan: Continue advanced soft diet, Daily ABD/Medipore dressing Monitoring volume status; continue NS 75cc/hr while Cr elevated Supportive care and pain control PPI with Protonix daily Start Scopolamine patch for N/V d/c lomotil , decreased fiber to 1 packet once a day will recheck labs this afternoon Encourage IS every hour while awake Encourage to drink 2 jugs of water a day Encourage to get out of bed and ambulate. Subjective Patient reports: still having pain, voiding w/o difficulty, nausea, vomiting, afebrile Narrative: Pt continued to have N, V over night. abd x ray yesterday revealed no cause of symptoms. Patient had miniaml ostomy output yesterday. Likely secondary to increase in fiber prescribed, will reduce to equibrilate ostomy output. Should improve N/V. Objective Vital Signs - Last 8 Hours Temp Pulse Resp BP Pulse Ox 10/02/17 10:48 97.8 F 60 18 152/72 99 10/02/17 07:14 98.3 F 71 18 137/72 99 10/02/17 03:41 98.9 F 75 15 121/75 95 Intake and Output 10/01/17 10/02/17 10/02/17 23:59 07:59 15:59 Intake Total 1170 / 1170 650 / 650 1000 / 1000 Output Total 0 / 0 990 / 990 Balance 1170 / 1170 -340 / -340 1000 / 1000 Intake: IV Fluids 1000 / 1000 650 / 650 1000 / 1000 0.9 % Sodium Chloride 1,000 ML 1000 / 1000 650 / 650 1000 / 1000 @ 3750 mls/hr IVC .[id number] [facility] Rx# :[id number] Oral 170 / 170 0 / 0 Output: Urine 0 / 0 100 / 100 Stool 50 / 50 Emesis 840 / 840 Other: Meal Dinner Percent of Meal Consumed 0% Weight 63.458 kg Blood Glucose* 113 Patient Weight 10/02/17 23:59 Weight 63.458 kg - General physical appearance well developed - Eyes normal ocular movement - ENT normal nares, no hearing loss - Neck Neck exam: trachea midline - Respiratory normal expansion, normal respiratory effort, clear to auscultation - Cardiovascular Cardiovascular exam: Present: RRR, no murmurs/rubs/gallops - Abdomen Abdomen: Present: bowel sounds present, soft, tender Abdominal Tenderness: diffusely - Incision Incision: Present: clean and dry, intact - Integumentary no abnormal pigmentation - Neurologic normal coordination - Musculoskeletal normal posture - Psychiatric oriented to time, oriented to person, oriented to place, speech is normal, memory intact - Labs 10/01/17 08:19 10/02/17 04:21 Diabetes panel 10/01/17 10/02/17 Range/Units 10:27 04:21 Sodium 135 L 136 (136-145) mEq/L Potassium 4.9 4.2 (3.5-5.1) mEq/L Chloride 101 99 (98-107) mEq/L Carbon Dioxide 27 29 (23-29) mEq/L BUN 23 25 H (8-23) mg/dL Creatinine 1.22 H 1.31 H (0.60-1.20) mg/dL Glucose 125 H 117 H (70-105) mg/dL Calcium 8.4 L 8.7 (8.6-10.3) mg/dL Calcium panel 10/01/17 10/02/17 Range/Units 10:27 04:21 Calcium 8.4 L 8.7 (8.6-10.3) mg/dL Phosphorus 3.1 3.9 (2.7-4.5) mg/dL Pituitary panel 10/01/17 10/02/17 Range/Units 10:27 04:21 Sodium 135 L 136 (136-145) mEq/L Potassium 4.9 4.2 (3.5-5.1) mEq/L Chloride 101 99 (98-107) mEq/L Carbon Dioxide 27 29 (23-29) mEq/L BUN 23 25 H (8-23) mg/dL Creatinine 1.22 H 1.31 H (0.60-1.20) mg/dL Glucose 125 H 117 H (70-105) mg/dL Calcium 8.4 L 8.7 (8.6-10.3) mg/dL Adrenal panel 10/01/17 10/02/17 Range/Units 10:27 04:21 Sodium 135 L 136 (136-145) mEq/L Potassium 4.9 4.2 (3.5-5.1) mEq/L Chloride 101 99 (98-107) mEq/L Carbon Dioxide 27 29 (23-29) mEq/L BUN 23 25 H (8-23) mg/dL Creatinine 1.22 H 1.31 H (0.60-1.20) mg/dL Glucose 125 H 117 H (70-105) mg/dL Calcium 8.4 L 8.7 (8.6-10.3) mg/dL - VTE Documentation of Mechanical Device: Intermittent pneumatic compression device Consult Discharge Plan - Plan Referrals: Rafita Frazier MD [Non-Partnered Physician] - 10/05/17 1:35 pm <Rafita Frazier - Last Filed: 10/02/17 15:54> Date of Encounter: 10/02/17 - Assessment and Plan (1) Acute diverticulitis Current Visit: Yes Status: Acute Objective Vital Signs - Last 8 Hours Temp Pulse Resp BP Pulse Ox 10/02/17 10:48 97.8 F 60 18 152/72 99 Intake and Output 10/01/17 10/02/17 10/02/17 23:59 07:59 15:59 Intake Total 1170 / 1170 650 / 650 2350 / 2350 Output Total 0 / 0 990 / 990 Balance 1170 / 1170 -340 / -340 2350 / 2350 Intake: IV Fluids 1000 / 1000 650 / 650 2350 / 2350 0.9 % Sodium Chloride 1,000 ML 1000 / 1000 650 / 650 2350 / 2350 @ 75 mls/hr IVC .[id number] [facility] Rx #:[id number] Oral 170 / 170 0 / 0 Output: Urine 0 / 0 100 / 100 Stool 50 / 50 Emesis 840 / 840 Other: Meal Dinner Percent of Meal Consumed 0% Weight 63.458 kg Blood Glucose* 113 Patient Weight 10/02/17 23:59 Weight 63.458 kg - Labs 10/01/17 08:19 10/02/17 04:21 Diabetes panel 10/02/17 Range/Units 04:21 Sodium 136 (136-145) mEq/L Potassium 4.2 (3.5-5.1) mEq/L Chloride 99 (98-107) mEq/L Carbon Dioxide 29 (23-29) mEq/L BUN 25 H (8-23) mg/dL Creatinine 1.31 H (0.60-1.20) mg/dL Glucose 117 H (70-105) mg/dL Calcium 8.7 (8.6-10.3) mg/dL Calcium panel 10/02/17 Range/Units 04:21 Calcium 8.7 (8.6-10.3) mg/dL Phosphorus 3.9 (2.7-4.5) mg/dL Pituitary panel 10/02/17 Range/Units 04:21 Sodium 136 (136-145) mEq/L Potassium 4.2 (3.5-5.1) mEq/L Chloride 99 (98-107) mEq/L Carbon Dioxide 29 (23-29) mEq/L BUN 25 H (8-23) mg/dL Creatinine 1.31 H (0.60-1.20) mg/dL Glucose 117 H (70-105) mg/dL Calcium 8.7 (8.6-10.3) mg/dL Adrenal panel 10/02/17 Range/Units 04:21 Sodium 136 (136-145) mEq/L Potassium 4.2 (3.5-5.1) mEq/L Chloride 99 (98-107) mEq/L Carbon Dioxide 29 (23-29) mEq/L BUN 25 H (8-23) mg/dL Creatinine 1.31 H (0.60-1.20) mg/dL Glucose 117 H (70-105) mg/dL Calcium 8.7 (8.6-10.3) mg/dL - Attending Attestation I have personally seen and examined the patient. I have reviewed pertinent labs , imaging, progress notes, including this one. I agree with the above assessment and plan and wish to include the following... POD #9 s/p open sigmoidectomy with diverting ileostomy; having nausea and vomiting; afebrile; good UOP; last abd x ray did not demonstrate obstruction, having ostomy function (ostomy pink, viable ,functioning); electrolytes are appropriate; decreased antidiarrheals; will cont to follow; if no improvement will obtain CT scan;
[2017-10-02] MEDS: *HR* Promethazine 25 MG/ML VIAL IVP PRN ×2 (13:15→17:15)
[2017-10-02 17:47] LABS: Calcium 8.2 mg/dL (8.6-10.3); Potassium 4.1 mEq/L (3.5-5.1)
[2017-10-02 17:56] LABS: Basophils % 0.3 %; Hematocrit 28.1 % (35.3-44.9); Hemoglobin 9.4 g/dL (11.5-15.4); Immature Granulocytes % 0.5 % (0-4); Lymphocytes # 1.9 K/mcL (0.6-4.6); Mean Corpuscular HGB Conc 33.5 g/dL (31.6-35.5); Mean Corpuscular Volume 98.6 fL (83.0-100.0); Mean Platelet Volume 11.3 fL (9.4-12.4); Monocytes # 1.1 K/mcL (0.0-1.3); Monocytes % 9.1 %; Neutrophils # 8.8 K/mcL (1.6-8.9); Platelet Count 114 K/mcL (140-400); Red Blood Count 2.85 M/mcL (3.82-4.97); Red Cell Distribution Width 16.1 % (11.5-14.5); Segmented Neutrophils % 74.1 %
--- NOTE | 2017-10-02 22:38 | Anesthesia Evaluation PreOp ---
Date of Encounter: 10/02/17 Time of Encounter: 22:35 - Past History Planned Operation: Exploratory Lap Cardiac History: HTN, Hyperlipidemia Pulmonary History: Former smoker, COPD CAR STORER History: CVA Other Medical History: Hepatic (Hepatitis), Diabetes Type II, GERD Anesthesia History: No Prior Anesthetic Complications : No Alcohol Use: none Drug use: none Medications and Allergies Diltiazem CD (24hr) [Cardizem CD] 180 mg PO DAILY 06/27/17 [History] Famotidine [Pepcid] 40 mg PO DAILY 06/27/17 [History] 3 Allergy/AdvReac Type Severity Reaction Status Date / Time Penicillins [PCN] Allergy Rash Verified 09/23/17 07:03 niacin AdvReac Flushing Verified 09/23/17 07:03 duracef Allergy See Uncoded 09/23/17 07:03 Comments - Meds/Allergy Pre-op Review Medications Reviewed: Yes Allergies Reviewed: Yes Beta Blockers on Current Med List: No Anesthesia Results - Labs 10/02/17 17:32 10/02/17 17:01 - Imaging EKG: report reviewed (Sinus Lc) Anesthesia Exam Vital Signs/O2 Sat/Glucose, Most Current Temp Pulse Resp BP Pulse Ox 10/02/17 19:31 98.7 F 79 20 169/95 98 Height: 5'4 Weight: 139 lbs NPO (# of Hours): MN Pain Scale: 0 - HEENT Pupil (Motor): Pupils equal, EOMI Mallampati: II Oral Opening: Greater than 3 - CAR STORER LOC: Oriented CAR STORER Motor: Normal RUE, Normal LUE, Normal RLE, Normal LLE, Normal Face CAR STORER Sensory: Normal: RUE, LUE, RLE, LLE, Face - Cardiac Rhythm: Regular Murmur: None JVD: No Carotid Bruit: No - Pulmonary Breath Sounds: bilateral Clear Respiratory Effort: Symmetrical Anesthesia Assess/Plan ASA Score: 3, E Modified [place] Scale for Level of Consciousness: Cooperative, oriented, and tranquil Anesthetic Plan: General Monitoring Plan: Standard Monitors Recovery Plan: PACU (Discussed GA, agrees to proceed)
[2017-10-02] MEDS ORDERED: Lidocaine -MPF 2% 2 ML VIAL ONE (22:46)
[2017-10-02] MEDS ORDERED: *HR* Rocuronium Bromide 50 MG/5 ML VIAL ONE (22:46)
[2017-10-02] MEDS ORDERED: *HR* Succinylcholine 200 MG/10 ML VIAL IVP ONE (22:46)
[2017-10-02] MEDS ORDERED: *HR* Propofol 200 MG/20 ML VIAL IVP ONE (22:46)
[2017-10-02] MEDS ORDERED: *HR* FentaNYL (PF) 100 MCG/2 ML VIAL ONE (22:46)
[2017-10-02] MEDS ORDERED: Lidocaine -MPF 4% 5 ML AMPUL ONE (22:48)
[2017-10-02] MEDS ORDERED: CefOXitin 2,000 MG VIAL ONE (22:58)
[2017-10-02] MEDS ORDERED: Dexamethasone 4 MG/ML VIAL ONE (23:05)
[2017-10-02] MEDS ORDERED: Ondansetron 4 MG/2 ML VIAL ONE (23:05)
[2017-10-02] MEDS ORDERED: cefOXitin 2,000 MG in Water for inj. (sterile) 20 ML 10 ML IVP ONE (23:11)
[2017-10-02] MEDS ORDERED: Neostigmine Methylsulfate 3 MG/3 ML SYRINGE ONE (23:38)
[2017-10-02] MEDS ORDERED: *HR* Morphine 10 MG/ML VIAL ONE (23:46)
[2017-10-02] MEDS ORDERED: *HR* Morphine 30 MG/ 30 ML PCA IVC PRN (23:55)
[2017-10-03] MEDS ORDERED: Ondansetron 4 MG/2 ML VIAL IVP PRN ×3 (00:09→01:17)
[2017-10-03] MEDS ORDERED: Ondansetron 4 MG/2 ML VIAL ONE (00:12)
[2017-10-03] MEDS ORDERED: *HR* Morphine 2 MG/ML SYRINGE IVP ONE (00:28)
--- NOTE | 2017-10-03 00:32 | Event Note ---
Date of Encounter: 10/03/17 Time of Encounter: 00:30 62F pOD#9 s/p open sigmoidectomy with diverting ileostomy complicated by high ileostomy output requiring antidiarrheals with subsequent ileus, vomiting, and dehiscence. The patient has been vomiting for quite some time, in a lot of pain. Called by nurse because she thought she saw loops of small bowel. On my examination, I agreed. The decision was made to take the patient to the OR emergently for exploration and closure.
--- NOTE | 2017-10-03 00:36 | Operative Note ---
Date of procedure: 10/03/17 Pre-op diagnosis: abdominal wound dehiscence Post-op diagnosis: same Procedure: exploratory laparotomy, closure of abdominal wall fascia, repair of itragenic bowel injury Implants: none Complications: through and through bowel injury from suture needle; Anesthesia: GETA Local Anesthetics: 0.5% Sensorcaine HCL SubQ (cc) Surgeon: Rafita Frazier Was there an compounding assistant present: Yes Mobile Development Manager: Lexi Hicks Estimated blood loss (cc): 5 Specimen: none Condition: stable Disposition: PACU Procedure in Detail: Patient was brought into the operating room suite. Underwent smooth induction of anesthesia. Mechanical DVT prophylaxis was placed. The patient was placed in the supine position. Preoperative antibiotics were given. the patient was prepped and draped in the usual fashion. A timeout was held identifying correct patient pathology and procedure and physician. I started by removing the skin miguelina and opening the abdominal incision. I was able to immediately appreciate that the middle 6-7cm of the wound had dehisced. I explored the abdomen. There was no odor or visualization of succus. I irrigated the abdomen with about 500cc of saline. There was no succus or abscess or hematoma. I then removed the old suture and, using a 0 PDS looped suture closed the fascia in a running fashion. It should be stated that I used 0 nylon suture as a reinforcement suture in a figure of 8 fashion at 4 places equidistant from each other. I did cause a through and through injury to the small bowel, but I was able to reinforce it with a lembert suture with 3-0 silk. I then used the skin staplers to close the skin. The patient tolerated the procedure well and was escorted to PACU in stable condition.
[2017-10-03] MEDS ORDERED: *HR* Labetalol 20 MG/4 ML SYRINGE IVP PRN (00:37)
[2017-10-03] MEDS ORDERED: Naloxone 0.4 MG/ML INJ IVP PRN (01:01)
[2017-10-03] MEDS ORDERED: *HR* Promethazine 25 MG/ML VIAL IVP PRN (01:01)
[2017-10-03] MEDS: 0.9 % Sodium Chloride 1,000 ML IVC SCH (01:22)
[2017-10-03] MEDS: *HR* Morphine 30 MG/ 30 ML PCA IVC PRN (01:34)
[2017-10-03] MEDS: D5% in 0.9% NACL 1,000 ML IVC SCH ×2 (01:34→11:42)
--- NOTE | 2017-10-03 01:37 | Anesthesia Evaluation Post Op ---
Date of Encounter: 10/03/17 Time of Encounter: 01:00 - Vital Signs Vital Signs: Vital Signs/O2 Sat/Glucose, Most Current Temp Pulse Resp BP Pulse Ox 10/03/17 01:10 97.8 F 68 18 162/85 95 10/03/17 00:46 97.5 F L 67 14 160/90 98 10/03/17 00:36 72 16 178/104 100 10/03/17 00:26 97.5 F L 63 16 174/88 98 10/03/17 00:16 75 16 174/88 100 10/03/17 00:06 78 16 175/88 100 10/02/17 23:56 97.1 F L 60 16 122/75 100 - Lungs Lungs: Clear Ascult./Percussion - Airway Airway: Non-obstructed - Cardiovascular Regular Rate - Mental Status Mental Status: Alert & Oriented, Answers Appropriately - Pain Pain Scale: 1 - Nausea Vomiting Nausea Vomiting: Not Present - Hydration Hydration: NPO - Discharge PostOp Status: Transfer Patient to floor
[2017-10-03 05:36] LABS: Magnesium 1.7 mg/dL (1.6-2.6); Phosphorous 4.7 mg/dL (2.7-4.5)
[2017-10-03] MEDS: *HR* Enoxaparin 40 MG/0.4 ML SYRINGE SQ SCH (05:37)
[2017-10-03] MEDS: Pantoprazole 40 MG VIAL IVP SCH (05:37)
[2017-10-03 09:23] LABS: Basophils % 0.1 %; Hematocrit 29.1 % (35.3-44.9); Hemoglobin 9.4 g/dL (11.5-15.4); Immature Granulocytes % 0.6 % (0-4); Lymphocytes # 1.3 K/mcL (0.6-4.6); Lymphocytes % 10.1 %; Mean Corpuscular HGB Conc 32.3 g/dL (31.6-35.5); Mean Corpuscular Hemoglobin 32.2 pg (28.0-33.3); Mean Corpuscular Volume 99.7 fL (83.0-100.0); Mean Platelet Volume 11.2 fL (9.4-12.4); Monocytes # 0.7 K/mcL (0.0-1.3); Monocytes % 5.8 %; Neutrophils # 10.5 K/mcL (1.6-8.9); Nucleated Red Blood Cells 0.2 /100 WBC (0); Platelet Count 118 K/mcL (140-400); Red Blood Count 2.92 M/mcL (3.82-4.97); Red Cell Distribution Width 16.4 % (11.5-14.5); Segmented Neutrophils % 83.4 %
[2017-10-03 09:32] LABS: Calcium 8.3 mg/dL (8.6-10.3); Potassium 3.8 mEq/L (3.5-5.1)
--- NOTE | 2017-10-03 10:24 | Event Note ---
Date of Encounter: 10/03/17
--- NOTE | 2017-10-03 10:35 | General Surgery Progress Note ---
<Ric Matthews - Last Filed: 10/03/17 10:46> Date of Encounter: 10/03/17 Time of Encounter: 07:45 - Assessment and Plan (1) Acute diverticulitis Current Visit: Yes Status: Acute POD10 adhesionolysis, sigmoidectomy with diverting ileostomy with Dr. Shay and Dr. Murphy. Patient brought to the OR evening of 10/02 for closure/reinforcement of abdominal wall fascia secondary to wound dehiscence; patient tolerated procedure well; her pain is well-controlled. Plan: Wound care: this am BEHAVIORAL THERAPY COORDINATOR 20mL sanguinous/non-purulent fluid expressed from incision, subsequently packed, re-evaluation shows non-seeping incision site Continue daily ABD/Medipore dressing Hold fiber/anti-diarrheals Supportive care and pain control PPI with Protonix daily Subjective Narrative: Ms. Jessica tolerated her evening procedure for abdominal wall fascia reinforcement well. Her pain is in good control, she has not vomited since prior to surgery. She has had around 100mL UOP into commode. She is afebrile. Objective Vital Signs - Last 8 Hours Temp Pulse Resp BP Pulse Ox 10/03/17 07:34 98.1 F 68 16 119/66 98 10/03/17 04:01 62 100/65 96 10/03/17 03:15 97.7 F 60 16 100/64 97 Intake and Output 10/02/17 10/03/17 10/03/17 23:59 07:59 15:59 Intake Total 110 / 110 900 / 900 0 / 0 Output Total 1255 / 1255 300 / 300 Balance -1145 / -1145 600 / 600 0 / 0 Intake: IV Fluids 900 / 900 0.9 % Sodium Chloride 1,000 ML 900 / 900 @ 75 mls/hr IVC .[id number] [facility] Rx #:[id number] Mefoxin 2,000 MG In Water for inj. (sterile) 10 ML @ 150 mls/ hr IVP ONCE ONE Rx#:[id number] Oral 100 / 100 0 / 0 0 / 0 Output: Urine 900 / 900 0 / 0 Stool 100 / 100 Emesis 250 / 250 Estimated Blood Loss 5 / 5 Gastric Drainage 300 / 300 Other: Meal Dinner NPO Percent of Meal Consumed 0% 0% Stool Consistency liquid soft Stool Color Brown Yellow # Voids 1 2 Weight 57.9 kg Blood Glucose* 107 164 Patient Weight 10/03/17 23:59 Weight 57.9 kg - General physical appearance well developed, well nourished, no distress - Eyes normal ocular movement - ENT normal mucosa - Neck Neck exam: no lymphadectomy, no venous distension - Respiratory normal expansion, clear to auscultation - Cardiovascular Cardiovascular exam: Present: RRR, no murmurs/rubs/gallops. Absent: JVD - Abdomen Abdomen: Present: soft, non tender. Absent: guarding, rebound, rigid Additional Comments: ileostomy: stoma is pink and moist, slightly edematous, bowel sweat present - Labs 10/03/17 08:59 10/03/17 08:59 Diabetes panel 10/02/17 10/03/17 Range/Units 17:01 08:59 Sodium 137 138 (136-145) mEq/L Potassium 4.1 3.8 (3.5-5.1) mEq/L Chloride 104 104 (98-107) mEq/L Carbon Dioxide 22 L 25 (23-29) mEq/L BUN 23 26 H (8-23) mg/dL Creatinine 1.18 1.16 (0.60-1.20) mg/dL Glucose 108 H 141 H (70-105) mg/dL Calcium 8.2 L 8.3 L (8.6-10.3) mg/dL Calcium panel 10/02/17 10/03/17 10/03/17 Range/Units 17:01 04:24 08:59 Calcium 8.2 L 8.3 L (8.6-10.3) mg/dL Phosphorus 4.7 H (2.7-4.5) mg/dL Pituitary panel 10/02/17 10/03/17 Range/Units 17:01 08:59 Sodium 137 138 (136-145) mEq/L Potassium 4.1 3.8 (3.5-5.1) mEq/L Chloride 104 104 (98-107) mEq/L Carbon Dioxide 22 L 25 (23-29) mEq/L BUN 23 26 H (8-23) mg/dL Creatinine 1.18 1.16 (0.60-1.20) mg/dL Glucose 108 H 141 H (70-105) mg/dL Calcium 8.2 L 8.3 L (8.6-10.3) mg/dL Adrenal panel 10/02/17 10/03/17 Range/Units 17:01 08:59 Sodium 137 138 (136-145) mEq/L Potassium 4.1 3.8 (3.5-5.1) mEq/L Chloride 104 104 (98-107) mEq/L Carbon Dioxide 22 L 25 (23-29) mEq/L BUN 23 26 H (8-23) mg/dL Creatinine 1.18 1.16 (0.60-1.20) mg/dL Glucose 108 H 141 H (70-105) mg/dL Calcium 8.2 L 8.3 L (8.6-10.3) mg/dL - VTE Documentation of Mechanical Device: Intermittent pneumatic compression device Consult Discharge Plan - Plan Referrals: Rafita Frazier MD [Non-Partnered Physician] - 10/05/17 1:35 pm <Rafita Frazier - Last Filed: 10/03/17 15:02> Date of Encounter: 10/03/17 - Assessment and Plan (1) Acute diverticulitis Current Visit: Yes Status: Acute Objective Vital Signs - Last 8 Hours Temp Pulse Resp BP Pulse Ox 10/03/17 10:53 98.5 F 61 16 107/67 96 10/03/17 07:34 98.1 F 68 16 119/66 98 Intake and Output 10/02/17 10/03/17 10/03/17 23:59 07:59 15:59 Intake Total 110 / 110 900 / 900 1000 / 1000 Output Total 1255 / 1255 300 / 300 Balance -1145 / -1145 600 / 600 1000 / 1000 Intake: IV Fluids 900 / 900 1000 / 1000 0.9 % Sodium Chloride 1,000 ML 900 / 900 @ 75 mls/hr IVC .[id number] [facility] Rx #:[id number] D5% And 0.9% Nacl 1000 Ml 1,000 1000 / 1000 ML @ 100 mls/hr IVC .Q10H [facility] Rx#:[id number] Mefoxin 2,000 MG In Water for 10 inj. (sterile) 10 ML @ 150 mls/ hr IVP ONCE ONE Rx#:[id number] Oral 100 / 100 0 / 0 0 / 0 Output: Urine 900 / 900 0 / 0 Stool 100 / 100 Emesis 250 / 250 Estimated Blood Loss 5 / 5 Gastric Drainage 300 / 300 Other: Meal Dinner NPO Percent of Meal Consumed 0% 0% Stool Consistency liquid soft Stool Color Brown Yellow # Voids 1 2 Weight 57.9 kg Blood Glucose* 107 164 154 Patient Weight 10/03/17 23:59 Weight 57.9 kg - Labs 10/03/17 08:59 10/03/17 08:59 Diabetes panel 10/02/17 10/03/17 Range/Units 17:01 08:59 Sodium 137 138 (136-145) mEq/L Potassium 4.1 3.8 (3.5-5.1) mEq/L Chloride 104 104 (98-107) mEq/L Carbon Dioxide 22 L 25 (23-29) mEq/L BUN 23 26 H (8-23) mg/dL Creatinine 1.18 1.16 (0.60-1.20) mg/dL Glucose 108 H 141 H (70-105) mg/dL Calcium 8.2 L 8.3 L (8.6-10.3) mg/dL Calcium panel 10/02/17 10/03/17 10/03/17 Range/Units 17:01 04:24 08:59 Calcium 8.2 L 8.3 L (8.6-10.3) mg/dL Phosphorus 4.7 H (2.7-4.5) mg/dL Pituitary panel 10/02/17 10/03/17 Range/Units 17:01 08:59 Sodium 137 138 (136-145) mEq/L Potassium 4.1 3.8 (3.5-5.1) mEq/L Chloride 104 104 (98-107) mEq/L Carbon Dioxide 22 L 25 (23-29) mEq/L BUN 23 26 H (8-23) mg/dL Creatinine 1.18 1.16 (0.60-1.20) mg/dL Glucose 108 H 141 H (70-105) mg/dL Calcium 8.2 L 8.3 L (8.6-10.3) mg/dL Adrenal panel 10/02/17 10/03/17 Range/Units 17:01 08:59 Sodium 137 138 (136-145) mEq/L Potassium 4.1 3.8 (3.5-5.1) mEq/L Chloride 104 104 (98-107) mEq/L Carbon Dioxide 22 L 25 (23-29) mEq/L BUN 23 26 H (8-23) mg/dL Creatinine 1.18 1.16 (0.60-1.20) mg/dL Glucose 108 H 141 H (70-105) mg/dL Calcium 8.2 L 8.3 L (8.6-10.3) mg/dL - Attending Attestation I have personally seen and examined the patient. I have reviewed pertinent labs , imaging, progress notes, including this one. I agree with the above assessment and plan and wish to include the following... keep NPO cont NG tube to suction await return of bowel function ambulate ostomy education
[2017-10-03] MEDS: D5% in 0.45% NACL w KCl 20 MEQ/1,000 ML MLS IVC SCH (15:30)
[2017-10-04 05:06] LABS: Basophils % 0.2 %; Eosinophils % 0.1 %; Hematocrit 28.2 % (35.3-44.9); Immature Granulocytes % 0.5 % (0-4); Lymphocytes # 2.3 K/mcL (0.6-4.6); Mean Corpuscular HGB Conc 31.9 g/dL (31.6-35.5); Mean Corpuscular Hemoglobin 32.8 pg (28.0-33.3); Mean Corpuscular Volume 102.9 fL (83.0-100.0); Monocytes # 1.6 K/mcL (0.0-1.3); Monocytes % 10.7 %; Neutrophils # 11.2 K/mcL (1.6-8.9); Platelet Count 103 K/mcL (140-400); Red Blood Count 2.74 M/mcL (3.82-4.97); Red Cell Distribution Width 16.6 % (11.5-14.5); Segmented Neutrophils % 73.5 %
[2017-10-04 05:26] LABS: Calcium 8.4 mg/dL (8.6-10.3); Magnesium 1.8 mg/dL (1.6-2.6); Potassium 3.7 mEq/L (3.5-5.1)
[2017-10-04] MEDS: *HR* Enoxaparin 40 MG/0.4 ML SYRINGE SQ SCH (05:56)
[2017-10-04] MEDS: Pantoprazole 40 MG VIAL IVP SCH (05:56)
[2017-10-04] MEDS: D5% in 0.45% NACL w KCl 20 MEQ/1,000 ML MLS IVC SCH ×2 (05:57→20:22)
--- NOTE | 2017-10-04 09:12 | General Surgery Progress Note ---
Date of Encounter: 10/04/17 Time of Encounter: 09:08 - Assessment and Plan (1) Acute diverticulitis Current Visit: Yes Status: Acute 62F POD# 11 s/p HALS converted to open sigmoidectomy with diverting loop ileostomy complicated by fascial dehiscence POD #2 s/p exploration and fascial closure; good ostomy output; voiding on her own; appropriately tender to palpation; slight leukocytosis; cont with SDV PILOT/NAVIGATOR/DDS OPERATOR at present IS usage: patient needs aggressive IS usage today; 10 breaths/hr while awake; sputum and leukocytosis likely from atelectasis; d/c NG tube; start on sips of clears (250ccqshift, non carbonated, non sweetened ) cont to monitor UOP; bolus 2L NS today; replete lytes, repeat labs in PM cont SQH for dvt prophylaxis ambulate x 3 today ostomy education - patient is not taking charge of her care especially in regard to her ostomy; cannot leave prior to that Subjective Patient reports: no new complaints, feels better, still having pain, pain is less, flatus, bowel movement, afebrile, other (reportedly yellow sputum) Objective Vital Signs - Last 8 Hours Temp Pulse Resp BP Pulse Ox 10/04/17 06:48 98.7 F 71 18 93/52 95 10/04/17 03:38 98.4 F 76 16 114/66 98 Intake and Output 10/03/17 10/04/17 10/04/17 23:59 07:59 15:59 Intake Total 0 / 0 1000 / 1000 Output Total 400 / 400 350 / 350 Balance -400 / -400 650 / 650 Intake: IV Fluids 1000 / 1000 KCl 20mEq IN D5%-0.45 NACL 20 1000 / 1000 meq In 1,000 ml @ 75 mls/hr IVC .[id number] [facility] Rx#:[id number] Oral 0 / 0 0 / 0 Output: Urine 400 / 400 200 / 200 Gastric Drainage 150 / 150 Other: Meal NPO NPO Percent of Meal Consumed 0% 0% Weight 52.8 kg Blood Glucose* 158 Patient Weight 10/04/17 23:59 Weight 52.8 kg - General physical appearance well developed, well nourished, no distress - Eyes normal ocular movement - Respiratory normal expansion, normal respiratory effort - Cardiovascular Cardiovascular exam: Present: RRR - Abdomen Abdomen: Present: soft, tender (appropriately tender) - Incision Incision: Present: clean and dry, intact - Neurologic CN 2-12 grossly intact - Psychiatric oriented to time, oriented to person, oriented to place - Labs 10/04/17 04:48 10/04/17 04:48 Diabetes panel 10/03/17 10/04/17 Range/Units 08:59 04:48 Sodium 138 138 (136-145) mEq/L Potassium 3.8 3.7 (3.5-5.1) mEq/L Chloride 104 109 H (98-107) mEq/L Carbon Dioxide 25 23 (23-29) mEq/L BUN 26 H 28 H (8-23) mg/dL Creatinine 1.16 1.22 H (0.60-1.20) mg/dL Glucose 141 H 111 H (70-105) mg/dL Calcium 8.3 L 8.4 L (8.6-10.3) mg/dL Calcium panel 10/03/17 10/04/17 Range/Units 08:59 04:48 Calcium 8.3 L 8.4 L (8.6-10.3) mg/dL Pituitary panel 10/03/17 10/04/17 Range/Units 08:59 04:48 Sodium 138 138 (136-145) mEq/L Potassium 3.8 3.7 (3.5-5.1) mEq/L Chloride 104 109 H (98-107) mEq/L Carbon Dioxide 25 23 (23-29) mEq/L BUN 26 H 28 H (8-23) mg/dL Creatinine 1.16 1.22 H (0.60-1.20) mg/dL Glucose 141 H 111 H (70-105) mg/dL Calcium 8.3 L 8.4 L (8.6-10.3) mg/dL Adrenal panel 10/03/17 10/04/17 Range/Units 08:59 04:48 Sodium 138 138 (136-145) mEq/L Potassium 3.8 3.7 (3.5-5.1) mEq/L Chloride 104 109 H (98-107) mEq/L Carbon Dioxide 25 23 (23-29) mEq/L BUN 26 H 28 H (8-23) mg/dL Creatinine 1.16 1.22 H (0.60-1.20) mg/dL Glucose 141 H 111 H (70-105) mg/dL Calcium 8.3 L 8.4 L (8.6-10.3) mg/dL - VTE Documentation of Mechanical Device: Intermittent pneumatic compression device Consult Discharge Plan - Plan Referrals: Rafita Frazier MD [Non-Partnered Physician] - 10/05/17 1:35 pm
[2017-10-04] MEDS ORDERED: Ipratropium/Albuterol Neb 3 ML IH ONE (09:13)
[2017-10-04] MEDS ORDERED: Ringers Solution, Lactated 2,000 ML IVC ONE (09:20)
[2017-10-04] MEDS ORDERED: Fluconazole 200 MG/100 ML 200 MG/100 ML BAG IVPB ONE (10:30)
[2017-10-04 13:00] LABS: Bilirubin,Urine Small (Negative); Blood,Urine Negative (Negative); Color,Urine Dark Yellow (Yellow); Glucose,Urine (UA) Normal (Normal); Ketones,Urine Negative (Negative); Leukocyte Esterase,Urine Small (Negative); Nitrite,Urine Negative (Negative); Protein,Urine Trace mg/dL (Neg-Trace); Specific Gravity,Urine 1.023 (1.010-1.025); Urobilinogen,Urine Normal (Normal)
[2017-10-04 13:01] LABS: Bacteria,Urine None Seen per hpf (None-Few); Hyaline Casts,Urine None Seen per lpf (None-Few); RBC,Urine 0-3 per hpf (0-3); Squamous Epithelial Cell,Urine Few per lpf (None-Few)
[2017-10-04 13:16] LABS: Clarity,Urine Slightly Hazy (Clear)
[2017-10-04 13:22] LABS: Amorphous Sediment,Urine Few (Few)
[2017-10-04] MEDS ORDERED: Levofloxacin 500 MG/100 ML 500 MG/100 ML BAG IVPB SCH (16:00)
[2017-10-04] MEDS: Ipratropium/Albuterol Neb 3 ML IH SCH ×2 (16:11→20:27)
[2017-10-04] MEDS: Acetylcysteine 10% 2 ML INHSOL IH SCH ×2 (16:11→20:27)
[2017-10-04] MEDS ORDERED: Nitrofurantoin (BID) 100 MG CAPSULE PO SCH (17:00)
[2017-10-04] MEDS: *HR* Morphine 30 MG/ 30 ML PCA IVC PRN (17:31)
[2017-10-04] MEDS: LEVOFLOXACIN 750 MG/150 ML IVPB SCH (17:39)
[2017-10-04 19:35] LABS: Calcium 8.1 mg/dL (8.6-10.3); Magnesium 1.7 mg/dL (1.6-2.6); Phosphorous 1.9 mg/dL (2.7-4.5); Potassium 4.1 mEq/L (3.5-5.1)
[2017-10-05] MEDS: Acetylcysteine 10% 2 ML INHSOL IH SCH ×6 (00:05→20:50)
[2017-10-05] MEDS: Ipratropium/Albuterol Neb 3 ML IH SCH ×6 (00:05→20:49)
[2017-10-05] MEDS: Pantoprazole 40 MG VIAL IVP SCH (05:44)
[2017-10-05] MEDS: *HR* Enoxaparin 40 MG/0.4 ML SYRINGE SQ SCH (05:44)
[2017-10-05 09:19] LABS: BUN/Creatinine Ratio 17 (6-26); Blood Urea Nitrogen 18 mg/dL (8-23); Carbon Dioxide 19 mEq/L (23-29); Chloride 106 mEq/L (98-107); Glucose 113 mg/dL (70-105); Osmolality,Calculated 275 (280-300); Potassium 4.7 mEq/L (3.5-5.1); Sodium 131 mEq/L (136-145); eGFR For African Americans > 60 (> 60); eGFR For Non-African Americans 53 (> 60)
[2017-10-05 09:29] LABS: Basophils % 0.3 %; Eosinophils % 0.1 %; Hematocrit 25.4 % (35.3-44.9); Hemoglobin 8.7 g/dL (11.5-15.4); Lymphocytes % 16.5 %; Mean Corpuscular HGB Conc 34.3 g/dL (31.6-35.5)
[2017-10-05 09:30] LABS: Immature Granulocytes % 1.2 % (0-4); Immature Platelets 6.8 % (1.1-6.1); Lymphocytes # 2.4 K/mcL (0.6-4.6); Mean Corpuscular Hemoglobin 33.5 pg (28.0-33.3); Mean Corpuscular Volume 97.7 fL (83.0-100.0); Mean Platelet Volume 12.3 fL (9.4-12.4); Monocytes # 1.1 K/mcL (0.0-1.3); Monocytes % 7.4 %; Nucleated Red Blood Cells 0.1 /100 WBC (0); Red Cell Distribution Width 15.6 % (11.5-14.5); Segmented Neutrophils % 74.5 %
[2017-10-05 09:33] LABS: Platelet Count 89 K/mcL (140-400)
--- NOTE | 2017-10-05 09:37 | General Surgery Progress Note ---
Date of Encounter: 10/05/17 Time of Encounter: 09:35 - Assessment and Plan (1) Acute diverticulitis Current Visit: Yes Status: Acute 62F POD# 12 s/p HALS converted to open sigmoidectomy with diverting loop ileostomy complicated by fascial dehiscence POD #3 s/p exploration and fascial closure; good ostomy output; voiding on her own; appropriately tender to palpation; slight leukocytosis but decreasing; possible wound infection cont with ORGANIC LAB WORKER at present IS usage: patient needs aggressive IS usage today; 10 breaths/hr while awake; CLD for breakfast; FLD for lunch, soft diet for dinner (advancing assuming tolerance) cont to monitor UOP; once tolerating diet, SLIV replete lytes cont SQH for dvt prophylaxis ambulate x 3 today ostomy education - patient is not taking charge of her care especially in regard to her ostomy; cannot leave prior to that Subjective Patient reports: no new complaints, feels better, still having pain, pain is less, tolerating liquids well, flatus, bowel movement Objective Vital Signs - Last 8 Hours Temp Pulse Resp BP Pulse Ox 10/05/17 07:53 16 93 10/05/17 07:33 98.8 F 78 16 115/56 93 10/05/17 04:39 20 98 10/05/17 04:13 99.6 F 81 16 96/67 95 Intake and Output 10/04/17 10/05/17 10/05/17 23:59 07:59 15:59 Intake Total 1390 / 1390 360 / 360 0 / 0 Output Total 975 / 975 600 / 600 Balance 415 / 415 -240 / -240 0 / 0 Intake: IV Fluids 1150 / 1150 KCl 20mEq IN D5%-0.45 NACL 20 1000 / 1000 meq In 1,000 ml @ 75 mls/hr IVC .[id number] [facility] Rx#:[id number] Levaquin Premix 750mg/150 mL 150 / 150 750 mg In 150 ml @ 100 mls/hr IVPB Q48H [facility] Rx#:[id number] Oral 240 / 240 360 / 360 0 / 0 Output: Urine 400 / 400 200 / 200 Stool 275 / 275 400 / 400 Urine/Stool Mix 300 / 300 Other: Meal Dinner NPO Breakfast Percent of Meal Consumed 100% Stool Size Small Stool Consistency loose liquid Stool Color Brown Green Weight 52.802 kg Blood Glucose* 152 Patient Weight 10/05/17 23:59 Weight 52.802 kg - General physical appearance no distress - Respiratory normal expansion, normal respiratory effort - Cardiovascular Cardiovascular exam: Present: RRR - Abdomen Abdomen: Present: soft, tender (appropriatley tenders) - Incision Incision: Present: draining, intact, purulent, serous - Neurologic CN 2-12 grossly intact - Psychiatric oriented to time, oriented to person, oriented to place - Labs 10/04/17 04:48 10/05/17 08:51 Diabetes panel 10/04/17 10/05/17 Range/Units 18:33 08:51 Sodium 130 L 131 L (136-145) mEq/L Potassium 4.1 4.7 (3.5-5.1) mEq/L Chloride 102 106 (98-107) mEq/L Carbon Dioxide 23 19 L (23-29) mEq/L BUN 24 H 18 (8-23) mg/dL Creatinine 1.11 1.05 (0.60-1.20) mg/dL Glucose 115 H 113 H (70-105) mg/dL Calcium 8.1 L 8.0 L (8.6-10.3) mg/dL Calcium panel 10/04/17 10/05/17 Range/Units 18:33 08:51 Calcium 8.1 L 8.0 L (8.6-10.3) mg/dL Phosphorus 1.9 L (2.7-4.5) mg/dL Pituitary panel 10/04/17 10/05/17 Range/Units 18:33 08:51 Sodium 130 L 131 L (136-145) mEq/L Potassium 4.1 4.7 (3.5-5.1) mEq/L Chloride 102 106 (98-107) mEq/L Carbon Dioxide 23 19 L (23-29) mEq/L BUN 24 H 18 (8-23) mg/dL Creatinine 1.11 1.05 (0.60-1.20) mg/dL Glucose 115 H 113 H (70-105) mg/dL Calcium 8.1 L 8.0 L (8.6-10.3) mg/dL Adrenal panel 10/04/17 10/05/17 Range/Units 18:33 08:51 Sodium 130 L 131 L (136-145) mEq/L Potassium 4.1 4.7 (3.5-5.1) mEq/L Chloride 102 106 (98-107) mEq/L Carbon Dioxide 23 19 L (23-29) mEq/L BUN 24 H 18 (8-23) mg/dL Creatinine 1.11 1.05 (0.60-1.20) mg/dL Glucose 115 H 113 H (70-105) mg/dL Calcium 8.1 L 8.0 L (8.6-10.3) mg/dL - VTE Documentation of Mechanical Device: Intermittent pneumatic compression device Consult Discharge Plan - Plan Referrals: Rafita Frazier MD [Non-Partnered Physician] -
[2017-10-05] MEDS: Fluconazole 100 MG/50 ML 100 MG/50 ML BAG IVPB SCH (09:48)
[2017-10-05] MEDS: D5% in 0.45% NACL w KCl 20 MEQ/1,000 ML MLS IVC SCH (12:18)
[2017-10-05] MEDS: *HR* OxyCODONE/APAP 5/325 TABLET PO PRN (13:44)
[2017-10-06] MEDS: Acetylcysteine 10% 2 ML INHSOL IH SCH ×6 (00:10→19:53)
[2017-10-06] MEDS: Ipratropium/Albuterol Neb 3 ML IH SCH ×6 (00:10→19:53)
[2017-10-06] MEDS: *HR* OxyCODONE/APAP 5/325 TABLET PO PRN ×3 (00:34→19:04)
[2017-10-06] MEDS: D5% in 0.45% NACL w KCl 20 MEQ/1,000 ML MLS IVC SCH (01:52)
[2017-10-06] MEDS: traMADol 50 MG TABLET PO PRN ×2 (01:55→13:43)
[2017-10-06] MEDS: Pantoprazole 40 MG VIAL IVP SCH (05:33)
[2017-10-06] MEDS: *HR* Enoxaparin 40 MG/0.4 ML SYRINGE SQ SCH (05:34)
[2017-10-06 06:55] LABS: BUN/Creatinine Ratio 10 (6-26); Blood Urea Nitrogen 10 mg/dL (8-23); Calcium 7.8 mg/dL (8.6-10.3); Carbon Dioxide 25 mEq/L (23-29); Chloride 105 mEq/L (98-107); Glucose 137 mg/dL (70-105); Osmolality,Calculated 275 (280-300); Potassium 4.1 mEq/L (3.5-5.1); Sodium 132 mEq/L (136-145); eGFR For African Americans > 60 (> 60); eGFR For Non-African Americans 53 (> 60)
[2017-10-06 07:08] LABS: Basophils % 0.3 %; Eosinophils % 0.1 %; Hematocrit 22.7 % (35.3-44.9); Hemoglobin 7.4 g/dL (11.5-15.4); Immature Granulocytes % 0.4 % (0-4); Lymphocytes # 1.2 K/mcL (0.6-4.6); Lymphocytes % 15.7 %; Mean Corpuscular HGB Conc 32.6 g/dL (31.6-35.5); Mean Corpuscular Hemoglobin 32.7 pg (28.0-33.3); Mean Corpuscular Volume 100.4 fL (83.0-100.0); Mean Platelet Volume 11.3 fL (9.4-12.4); Monocytes # 0.5 K/mcL (0.0-1.3); Neutrophils # 5.8 K/mcL (1.6-8.9); Platelet Count 105 K/mcL (140-400); Red Blood Count 2.26 M/mcL (3.82-4.97); Red Cell Distribution Width 15.6 % (11.5-14.5); Segmented Neutrophils % 76.5 %
--- NOTE | 2017-10-06 08:14 | General Surgery Progress Note ---
Date of Encounter: 10/06/17 Time of Encounter: 08:12 - Assessment and Plan (1) Acute diverticulitis Current Visit: Yes Status: Acute 62F POD# 13 s/p HALS converted to open sigmoidectomy with diverting loop ileostomy complicated by fascial dehiscence POD #4 s/p exploration and fascial closure; good ostomy output; voiding on her own; appropriately tender to palpation; normal WBC; possible wound infection, but draining PO pain meds IS usage: patient needs aggressive IS usage today; 10 breaths/hr while awake; soft diet today cont to monitor UOP; once tolerating diet, SLIV replete lytes; NO AM LABS cont SQH for dvt prophylaxis ambulate x 3 today PT/OT - cont with assessment; possible SNF Subjective Patient reports: no new complaints, feels better, still having pain, pain is less, tolerating a regular diet, flatus, bowel movement, afebrile Objective Vital Signs - Last 8 Hours Temp Pulse Resp BP Pulse Ox 10/06/17 07:36 18 96 10/06/17 07:29 98.2 F 78 18 99/55 96 10/06/17 04:38 16 95 10/06/17 03:33 97.6 F 70 15 127/71 95 Intake and Output 10/05/17 10/06/17 10/06/17 23:59 07:59 15:59 Intake Total 120 / 120 1030 / 1030 Output Total 1425 / 1425 1350 / 1350 Balance -1305 / -1305 -320 / -320 Intake: IV Fluids 530 / 530 KCl 20mEq IN D5%-0.45 NACL 20 530 / 530 meq In 1,000 ml @ 75 mls/hr IVC .[id number] [facility] Rx#:[id number] Oral 120 / 120 500 / 500 Output: Urine 650 / 650 1000 / 1000 Stool 775 / 775 350 / 350 Other: Meal Dinner Percent of Meal Consumed 5% Stool Consistency liquid Stool Color Green Weight 53.6 kg Blood Glucose* 154 Patient Weight 10/06/17 23:59 Weight 53.6 kg - General physical appearance no distress - ENT normal mucosa - Respiratory normal expansion, normal respiratory effort - Cardiovascular Cardiovascular exam: Present: RRR - Abdomen Abdomen: Present: soft, tender (appropriately tender; non peritoneal;) - Incision Incision: Present: draining, intact, purulent, serous - Neurologic CN 2-12 grossly intact - Psychiatric oriented to time, oriented to person, oriented to place - Labs 10/06/17 06:01 10/06/17 06:01 Diabetes panel 10/05/17 10/06/17 Range/Units 08:51 06:01 Sodium 131 L 132 L (136-145) mEq/L Potassium 4.7 4.1 (3.5-5.1) mEq/L Chloride 106 105 (98-107) mEq/L Carbon Dioxide 19 L 25 (23-29) mEq/L BUN 18 10 (8-23) mg/dL Creatinine 1.05 1.04 (0.60-1.20) mg/dL Glucose 113 H 137 H (70-105) mg/dL Calcium 8.0 L 7.8 L (8.6-10.3) mg/dL Calcium panel 10/05/17 10/06/17 Range/Units 08:51 06:01 Calcium 8.0 L 7.8 L (8.6-10.3) mg/dL Pituitary panel 10/05/17 10/06/17 Range/Units 08:51 06:01 Sodium 131 L 132 L (136-145) mEq/L Potassium 4.7 4.1 (3.5-5.1) mEq/L Chloride 106 105 (98-107) mEq/L Carbon Dioxide 19 L 25 (23-29) mEq/L BUN 18 10 (8-23) mg/dL Creatinine 1.05 1.04 (0.60-1.20) mg/dL Glucose 113 H 137 H (70-105) mg/dL Calcium 8.0 L 7.8 L (8.6-10.3) mg/dL Adrenal panel 10/05/17 10/06/17 Range/Units 08:51 06:01 Sodium 131 L 132 L (136-145) mEq/L Potassium 4.7 4.1 (3.5-5.1) mEq/L Chloride 106 105 (98-107) mEq/L Carbon Dioxide 19 L 25 (23-29) mEq/L BUN 18 10 (8-23) mg/dL Creatinine 1.05 1.04 (0.60-1.20) mg/dL Glucose 113 H 137 H (70-105) mg/dL Calcium 8.0 L 7.8 L (8.6-10.3) mg/dL - VTE Documentation of Mechanical Device: Intermittent pneumatic compression device Consult Discharge Plan - Plan Referrals: Rafita Frazier MD [Non-Partnered Physician] -
[2017-10-06] MEDS: Psyllium 1 PACKET POWD.PACK PO SCH (08:36)
[2017-10-06] MEDS: Fluconazole 100 MG/50 ML 100 MG/50 ML BAG IVPB SCH (08:37)
--- NOTE | 2017-10-06 11:38 | Discharge Summary ---
<Ric Matthews - Last Filed: 10/06/17 13:37> Orders not resulted at time of discharge: Pending orders 09/23/17 11:12 US anesthesia pain block [US] Routine Date of Encounter: 10/06/17 Time of Encounter: 08:45 - Discharge Diagnosis (1) Acute diverticulitis Priority: Primary Status: Resolved General Surgery Exam Initial Vital Signs Temp Pulse Resp BP Pulse Ox 98.3 F 75 18 146/82 97 09/23/17 06:22 09/23/17 06:22 09/23/17 06:22 09/23/17 06:22 09/23/17 06:22 - General physical appearance well developed, well nourished, no distress - Eyes normal ocular movement - ENT normal mucosa - Neck no lymphadectomy - Respiratory normal expansion, normal respiratory effort, clear to auscultation - Cardiovascular Cardiovascular exam: Present: RRR, no murmurs/rubs/gallops. Absent: JVD - Abdomen Abdomen general surgery: Present: bowel sounds present, soft. Absent: guarding , rebound, rigid - Incision Incision: Present: clean and dry, intact (15 miguelina intact), serous - Integumentary Integumentary general surgery: Present: warm and dry, no abnormal pigmentation - Neurologic Present: normal coordination, normal sensation - Musculoskeletal Present: normal gait (able to get in and out of bed without assist), normal posture - Psychiatric Psychiatric general surgery: Present: A&Ox3, speech is normal, memory intact - Hospital Course Hospital course: Ms. Jessica is a 62 year old female who presented to [facility] on 09/23 for hand assisted laparoscopitc surgery converted to open sigmoidectomy with diverting loop ileostomy in setting of recurrent diverticulitis. She tolerated the procedure well, patient's post-op care complicated by fascial dehiscence on POD# 4. This was rectified with exploration and fascial closure. Patient was educated on ostomy management, provided pain control, PT/OT evaluation, spirometry training. She is tolerating soft diet without nausea or vomiting. Currently her vitals are stable. Patient developed a leukocytosis after fascial closure that has since resolved. We are discharging her to a assisted facility for continued post-op care. She has an appointment for follow-up with Dr. Frazier on 10/19. - Time Spent with Patient Total time spent providing and/or coordinating discharge services: - Discharge Medications Prescriptions: OxyCODONE/APAP 5/325 [Percocet 5/325 MG] 1 each PO Q6HR PRN 7 Days #28 tablet PRN Reason: Pain Ibuprofen [Motrin] 800 mg PO Q8HR PRN #42 tablet PRN Reason: Pain Home Medications: Diltiazem CD (24hr) [Cardizem CD] 180 mg PO DAILY 06/27/17 [History] Famotidine [Pepcid] 40 mg PO DAILY 06/27/17 [History] Ibuprofen [Motrin] 800 mg PO Q8HR PRN #42 tablet 10/06/17 [Rx] OxyCODONE/APAP 5/325 [Percocet 5/325 MG] 1 each PO Q6HR PRN 7 Days #28 tablet [Rx] Allergies/Adverse Reactions: 3 Allergy/AdvReac Type Severity Reaction Status Date / Time Penicillins [PCN] Allergy Rash Verified 09/23/17 07:03 niacin AdvReac Flushing Verified 09/23/17 07:03 duracef Allergy See Uncoded 09/23/17 07:03 Comments Date of admission: 09/23/17 14:47 Primary care physician: Ghanshyam Taylor Consults: 09/23/17 14:46 Consult to Enterostomal Therapist [CONS] Routine Reason for Consult: patient has an ileostomy; will need management education Call Completed: No 09/23/17 17:56 Consult to Nutrition [CONS] Routine Comment: Consulting Provider: NUTRITION Reason for Dietary Consult: MST Score Consult to Pastoral Services [CONS] Routine Comment: 09/24/17 13:47 Consult to Wound Care [CONS] Routine Reason for Consult: new loop ileostomy Call Completed: No 09/26/17 09:48 Consult to Vendor Specialist [CONS] Routine Reason for SW Consult: new ostomy; assess for home needs 10/04/17 10:12 Consult to Respiratory Therapy [CONS] Stat Reason for Consult: Aggressive pulmonary toileting, duonebs, mucocyst Time Notified: 10:13 Call Completed: Yes 10/05/17 11:01 Consult to Occupational Therapy [CONS] Routine Comment: Evaluate, develop and implement POC Reason for Consult: POD12 s/p lap converted to open sigmoidectomy, POD3 reinforcement of incision; post-op ambulation and assessment Does patient have active BEDREST order?: No Is patient medically & hemodynamically stable?: Yes Consult to Physical Therapy [CONS] Routine Comment: Evaluate, develop and implement POC Reason for Consult: POD12 s/p lap converted to open sigmoidectomy, POD3 reinforcement of incision; post-op ambulation and assessment Does patient have active BEDREST order?: No Is patient medically & hemodynamically stable?: Yes Labs on day of discharge: Labs from last 24 hours 10/06/17 10/06/17 10/05/17 06:01 06:01 23:28 WBC 7.6 RBC 2.26 L Hgb 7.4 L Hct 22.7 L MCV 100.4 H MCH 32.7 MCHC 32.6 RDW 15.6 H Plt Count 105 L MPV 11.3 Immature Gran % 0.4 Seg Neutrophils % 76.5 Lymphocytes % 15.7 Monocytes % 7.0 Eosinophils % 0.1 Basophils % 0.3 Neutrophils # 5.8 Lymphocytes # 1.2 Monocytes # 0.5 Eosinophils # 0.0 Basophils # 0.0 Sodium 132 L Potassium 4.1 Chloride 105 Carbon Dioxide 25 BUN 10 Creatinine 1.04 Est GFR ( Amer) > 60 Est GFR (Non-Af Amer) 53 L BUN/Creatinine Ratio 10 Glucose 137 H POC Glucose 154 H Calculated Osmolality 275 L Calcium 7.8 L 10/05/17 10/05/17 17:14 11:43 WBC RBC Hgb Hct MCV MCH MCHC RDW Plt Count MPV Immature Gran % Seg Neutrophils % Lymphocytes % Monocytes % Eosinophils % Basophils % Neutrophils # Lymphocytes # Monocytes # Eosinophils # Basophils # Sodium Potassium Chloride Carbon Dioxide BUN Creatinine Est GFR ( Amer) Est GFR (Non-Af Amer) BUN/Creatinine Ratio Glucose POC Glucose 163 H 104 H Calculated Osmolality Calcium - Impressions ITS Impressions Chest X-Ray 09/30/17 09:00 IMPRESSION: No acute process. D/ / Amaury Tineo MD / Amaury Tineo MD Interpreting Provider: Amaury Tineo MD Chest/Abdomen X-ray 10/01/17 13:24 IMPRESSION: No acute findings in the abdomen. D/ / Geovany Renee MD / Geovany Renee MD Interpreting Provider: Geovany Renee MD Chest X-Ray 10/04/17 10:11 IMPRESSION: No acute cardiopulmonary process. D/ / Salvatore Marie MD / Salvatore Marie MD Interpreting Provider: Salvatore Marie MD - Patient Status Disposition: Transfer SNF Condition: Good Overall status at discharge: patient is progressing back to baseline - Discharge Instructions Follow Up With: Rafita Frazier MD [Non-Partnered Physician] - 10/19/17 2:05 pm Additional Instructions: General Surgical Discharge Instructions 1. No pushing, pulling, or lifting greater than 15 lbs for 2-4 weeks (depending upon procedure). 2. You may shower beginning today, but no tub baths, soaking, or swimming for 2 weeks. 3. You may resume driving when you are off narcotics and are safe to react in a car. 4. Take ibuprofen every 8 hours for discomfort. If this does not relieve discomfort, you may take the as needed Percocet. Take narcotics as directed. Do not take more narcotics then directed and do not share your narcotics with any other person. Do not drink alcohol while on narcotics. 5. Take stool softeners (Colace) or a water based laxative (Miralax) while taking narcotics. You may hold for loose stools. 6. Report any fevers greater than 100.5F, increase abdominal discomfort, drainage that looks like pus, increased redness or pain at the surgical site, or any vomiting. 7. Report any pain in the calves, shortness of breath, or rapid heartbeat. 8. Follow-up in the office as directed. 9. If you were prescribed antibiotics, do not stop them without talking to your provider. - Diet and Activity Diet: regular diet <Rafita Frazier - Last Filed: 10/07/17 17:21> Orders not resulted at time of discharge: Pending orders 09/23/17 11:12 US anesthesia pain block [US] Routine Date of Encounter: 10/07/17 - Discharge Diagnosis (1) Acute diverticulitis Status: Resolved General Surgery Exam Initial Vital Signs Temp Pulse Resp BP Pulse Ox 98.3 F 75 18 146/82 97 09/23/17 06:22 09/23/17 06:22 09/23/17 06:22 09/23/17 06:22 09/23/17 06:22 - Hospital Course Hospital course: Ms. Jessica is a 62 year old female - Time Spent with Patient Total time spent providing and/or coordinating discharge services: Date of admission: 09/23/17 14:47 Primary care physician: Ghanshyam Taylor Consults: 09/23/17 14:46 Consult to Enterostomal Therapist [CONS] Routine Reason for Consult: patient has an ileostomy; will need management education Call Completed: No 09/23/17 17:56 Consult to Nutrition [CONS] Routine Comment: Consulting Provider: NUTRITION Reason for Dietary Consult: MST Score Consult to Pastoral Services [CONS] Routine Comment: 09/24/17 13:47 Consult to Wound Care [CONS] Routine Reason for Consult: new loop ileostomy Call Completed: No 09/26/17 09:48 Consult to Vendor Specialist [CONS] Routine Reason for SW Consult: new ostomy; assess for home needs 10/04/17 10:12 Consult to Respiratory Therapy [CONS] Stat Reason for Consult: Aggressive pulmonary toileting, duonebs, mucocyst Time Notified: 10:13 Call Completed: Yes 10/05/17 11:01 Consult to Occupational Therapy [CONS] Routine Comment: Evaluate, develop and implement POC Reason for Consult: POD12 s/p lap converted to open sigmoidectomy, POD3 reinforcement of incision; post-op ambulation and assessment Does patient have active BEDREST order?: No Is patient medically & hemodynamically stable?: Yes Consult to Physical Therapy [CONS] Routine Comment: Evaluate, develop and implement POC Reason for Consult: POD12 s/p lap converted to open sigmoidectomy, POD3 reinforcement of incision; post-op ambulation and assessment Does patient have active BEDREST order?: No Is patient medically & hemodynamically stable?: Yes - Impressions ITS Impressions Chest X-Ray 09/30/17 09:00 IMPRESSION: No acute process. D/ / Amaury Tineo MD / Amaury Tineo MD Interpreting Provider: Amaury Tineo MD Chest/Abdomen X-ray 10/01/17 13:24 IMPRESSION: No acute findings in the abdomen. D/ / Geovany Renee MD / Geovany Renee MD Interpreting Provider: Geovany Renee MD Chest X-Ray 10/04/17 10:11 IMPRESSION: No acute cardiopulmonary process. D/ / Salvatore Marie MD / Salvatore Marie MD Interpreting Provider: Salvatore Marie MD - Attending Attestation I have personally seen and examined the patient. I have reviewed pertinent labs , imaging, progress notes, including this one. I agree with the above assessment and plan and wish to include the following... 62F POD #14 s/p HALS converted to open sigmoidectomy with diverting loop ileostomy 2/2 chronic diverticulitis complicated by ileus with subsequent fascial dehiscence s/p closure; tolerating diet; ileostomy output controllable; good PO intake; confident she can keep herself hydrated; PT/OT evaluation suggestive of instability with walking; will benefit from time at a SNF; patient agreeable; okay for discharge from my standpoint;
--- NOTE | 2017-10-06 11:40 | Physician Discharge Referral ---
ExtendedCare Referral Info Transfer To: SNF Provider in Charge after Transfer: Other (SNF Medical) Institutional Level of Care: Skilled - Diagnosis (1) Acute diverticulitis Priority: Primary Status: Acute Prognosis: Fair Aware of Diagnosis: Patient, Family Aware of Prognosis: Patient - Transfer Medications Home Medications: Diltiazem CD (24hr) [Cardizem CD] 180 mg PO DAILY 06/27/17 [History] Famotidine [Pepcid] 40 mg PO DAILY 06/27/17 [History] Allergies/Adverse Reactions: 3 Allergy/AdvReac Type Severity Reaction Status Date / Time Penicillins [PCN] Allergy Rash Verified 09/23/17 07:03 niacin AdvReac Flushing Verified 09/23/17 07:03 duracef Allergy See Uncoded 09/23/17 07:03 Comments - Respiratory Orders Smoking Cessation: Smoking cessation has been advised. For more information, call the [employer] Tobacco Quit Line at 0-210-HSTV-NOW. - Advance Directives Code Status: Full Code - Mobility Orders Ambulate - Rehabiliation Orders Rehab Potential: Good CERTIFICATION: I certify that the transfer of the above named patient to an Extended Care Facility is necessary for the continuing treatment of the diagnosis listed. The above information is true and accurate reflection of patient's current condition. Confidential - Redisclosure prohibited without a patient's written consent.
[2017-10-06] MEDS: LEVOFLOXACIN 750 MG/150 ML IVPB SCH (17:25)
[2017-10-07] MEDS: Ipratropium/Albuterol Neb 3 ML IH SCH ×7 (00:06→23:34)
[2017-10-07] MEDS: Acetylcysteine 10% 2 ML INHSOL IH SCH ×7 (00:06→23:34)
[2017-10-07] MEDS: *HR* OxyCODONE/APAP 5/325 TABLET PO PRN ×3 (01:01→15:34)
[2017-10-07] MEDS: traMADol 50 MG TABLET PO PRN ×2 (04:47→19:58)
[2017-10-07] MEDS: *HR* Enoxaparin 40 MG/0.4 ML SYRINGE SQ SCH (06:15)
[2017-10-07] MEDS: Pantoprazole 40 MG VIAL IVP SCH (06:15)
[2017-10-07] MEDS: Psyllium 1 PACKET POWD.PACK PO SCH (08:10)
[2017-10-07] MEDS: Fluconazole 100 MG/50 ML 100 MG/50 ML BAG IVPB SCH (08:10)
--- NOTE | 2017-10-07 11:22 | General Surgery Progress Note ---
<Ric Matthews - Last Filed: 10/07/17 11:27> Date of Encounter: 10/07/17 Time of Encounter: 08:35 - Assessment and Plan (1) Acute diverticulitis Current Visit: Yes Status: Resolved 62F POD# 14 s/p HALS converted to open sigmoidectomy with diverting loop ileostomy complicated by fascial dehiscence POD #4 s/p exploration and fascial closure Continues to have good ostomy output; voiding on her own; appropriately tender to palpation; normal WBC; would continues to have serosanguinous drainage, margins non-erythematous Plan: emergency services director pending placement for SNF Continue PT/OT/incentive spirometry; patient has received ostomy care education Continue daily ABD/Medipore dressing Supportive care and pain control PPI with Protonix daily Subjective Patient reports: no new complaints, tolerating a regular diet, voiding w/o difficulty, afebrile Narrative: Ms. Jessica has seen social media marketing specialist, she/her daughter have agreed on SNF with social media marketing specialist, placement pending. Her pain is controlled, she is tolerating her soft diet, she is a febrile, dressing is changed daily, she is ambulating and working with PT/OT and IS. Objective Vital Signs - Last 8 Hours Temp Pulse Resp BP Pulse Ox 10/07/17 11:08 16 96 10/07/17 10:22 98.7 F 87 18 96/55 96 10/07/17 08:37 98.9 F 99 18 104/59 97 10/07/17 07:51 17 100 10/07/17 03:50 20 99 Intake and Output 10/06/17 10/07/17 10/07/17 23:59 07:59 15:59 Intake Total 150 / 150 0 / 0 450 / 450 Output Total 1475 / 1475 600 / 600 400 / 400 Balance -1325 / -1325 -600 / -600 50 / 50 Intake: IV Fluids 150 / 150 50 / 50 Diflucan 100 MG/50 ML 100 mg In 50 / 50 50 ml @ 50 mls/hr IVPB DAILY MARIANA Rx#:[id number] Levaquin Premix 750mg/150 mL 150 / 150 750 mg In 150 ml @ 100 mls/hr IVPB Q48H MARIANA Rx#:[id number] Oral 0 / 0 400 / 400 Output: Urine 725 / 725 300 / 300 50 / 50 Stool 750 / 750 300 / 300 350 / 350 Other: Stool Color Green Green # Voids 2 - General physical appearance well developed, well nourished, no distress - Eyes normal ocular movement - ENT normal mucosa - Neck Neck exam: no lymphadectomy - Respiratory normal expansion, normal respiratory effort, clear to auscultation - Cardiovascular Cardiovascular exam: Present: RRR, no murmurs/rubs/gallops. Absent: JVD - Abdomen Abdomen: Present: soft, non tender - Incision Incision: Present: clean and dry, intact - Neurologic normal coordination, normal sensation - Musculoskeletal normal gait, normal posture - Psychiatric speech is normal, memory intact - Labs 10/06/17 06:01 10/06/17 06:01 - VTE Documentation of Mechanical Device: Intermittent pneumatic compression device Consult Discharge Plan - Plan Additional Instructions: General Surgical Discharge Instructions 1. No pushing, pulling, or lifting greater than 15 lbs for 2-4 weeks (depending upon procedure). 2. You may shower beginning today, but no tub baths, soaking, or swimming for 2 weeks. 3. You may resume driving when you are off narcotics and are safe to react in a car. 4. Take ibuprofen every 8 hours for discomfort. If this does not relieve discomfort, you may take the as needed Percocet. Take narcotics as directed. Do not take more narcotics then directed and do not share your narcotics with any other person. Do not drink alcohol while on narcotics. 5. Take stool softeners (Colace) or a water based laxative (Miralax) while taking narcotics. You may hold for loose stools. 6. Report any fevers greater than 100.5F, increase abdominal discomfort, drainage that looks like pus, increased redness or pain at the surgical site, or any vomiting. 7. Report any pain in the calves, shortness of breath, or rapid heartbeat. 8. Follow-up in the office as directed. 9. If you were prescribed antibiotics, do not stop them without talking to your provider. Referrals: Rafita Frazier MD [Non-Partnered Physician] - 10/19/17 2:05 pm Prescriptions: OxyCODONE/APAP 5/325 [Percocet 5/325 MG] 1 each PO Q6HR PRN 7 Days #28 tablet PRN Reason: Pain Ibuprofen [Motrin] 800 mg PO Q8HR PRN #42 tablet PRN Reason: Pain <Rafita Frazier - Last Filed: 10/07/17 17:30> Date of Encounter: 10/07/17 - Assessment and Plan (1) Acute diverticulitis Current Visit: Yes Status: Resolved Objective Vital Signs - Last 8 Hours Temp Pulse Resp BP Pulse Ox 10/07/17 14:50 98.7 F 78 18 93/53 96 10/07/17 11:08 16 96 10/07/17 10:22 98.7 F 87 18 96/55 96 Intake and Output 10/07/17 10/07/17 10/07/17 07:59 15:59 23:59 Intake Total 0 / 0 690 / 690 Output Total 600 / 600 1000 / 1000 Balance -600 / -600 -310 / -310 Intake: IV Fluids 50 / 50 Diflucan 100 MG/50 ML 100 mg In 50 / 50 50 ml @ 50 mls/hr IVPB DAILY MARIANA Rx#:[id number] Oral 0 / 0 640 / 640 Output: Urine 300 / 300 250 / 250 Stool 300 / 300 750 / 750 Other: Meal Lunch Percent of Meal Consumed 10% Stool Color Green - Labs 10/06/17 06:01 10/06/17 06:01 - Attending Attestation I have personally seen and examined the patient. I have reviewed pertinent labs , imaging, progress notes, including this one. I agree with the above assessment and plan and wish to include the following... tolerating diet pain controlled good ostomy output; feels comfortable managing; plan for d/c to SNF today;
[2017-10-08] MEDS: *HR* OxyCODONE/APAP 5/325 TABLET PO PRN ×2 (00:59→09:18)
[2017-10-08] MEDS: Ipratropium/Albuterol Neb 3 ML IH SCH ×3 (03:41→12:16)
[2017-10-08] MEDS: Acetylcysteine 10% 2 ML INHSOL IH SCH ×3 (03:41→12:15)
[2017-10-08] MEDS: traMADol 50 MG TABLET PO PRN (04:37)
[2017-10-08] MEDS: Pantoprazole 40 MG VIAL IVP SCH (06:04)
[2017-10-08] MEDS: *HR* Enoxaparin 40 MG/0.4 ML SYRINGE SQ SCH (06:04)
[2017-10-08 07:38] VITALS: BP 100/60
[2017-10-08] MEDS: Fluconazole 100 MG/50 ML 100 MG/50 ML BAG IVPB SCH (09:06)
[2017-10-08] MEDS: Psyllium 1 PACKET POWD.PACK PO SCH (09:06)
--- NOTE | 2017-10-08 10:42 | General Surgery Progress Note ---
<Gal Mckeon - Last Filed: 10/08/17 11:58> Date of Encounter: 10/08/17 Time of Encounter: 10:15 - Assessment and Plan (1) Acute diverticulitis Status: Resolved POD #15 s/p HALS converted to open sigmoidectomy with diverting loop ileostomy complicated by fascial dehiscence. POD #4 s/p ex lap and fascial closure. Pt continues to have good osteomy output Pt is voiding on her own, tolerates diet Patient still awaiting placement at SNF. continue PT/OT IS until placed. continue supportive care. Subjective Patient reports: no new complaints, tolerating a regular diet, voiding w/o difficulty, afebrile Narrative: Patient has been ready for discharge to SNF since 10/06. Patient is still awaiting placement. Objective Vital Signs - Last 8 Hours Temp Pulse Resp BP Pulse Ox 10/08/17 07:30 98 F 76 16 100/60 98 10/08/17 07:18 16 98 10/08/17 04:23 98.7 F 80 16 97/60 98 10/08/17 03:41 16 98 Intake and Output 10/07/17 10/08/17 10/08/17 23:59 07:59 15:59 Intake Total 460 / 460 600 / 600 360 / 360 Output Total 0 / 0 975 / 975 Balance 460 / 460 -375 / -375 360 / 360 Intake: Oral 460 / 460 600 / 600 360 / 360 Output: Urine 0 / 0 600 / 600 Stool 375 / 375 Other: Meal Dinner Breakfast Percent of Meal Consumed 50% 100% Stool Consistency loose Stool Characteristics Normal for Patient Stool Color Green - General physical appearance well developed, well nourished, no distress - Eyes normal ocular movement - ENT normal mucosa - Neck Neck exam: trachea midline - Respiratory normal expansion, normal respiratory effort, clear to auscultation - Cardiovascular Cardiovascular exam: Present: RRR, no murmurs/rubs/gallops - Abdomen Abdomen: Present: bowel sounds present, soft, non tender - Incision Incision: Present: clean and dry, intact - Neurologic CN 2-12 grossly intact, normal coordination - Musculoskeletal normal posture - Psychiatric oriented to time, oriented to person, oriented to place, speech is normal, memory intact - Labs 10/06/17 06:01 10/06/17 06:01 - VTE Documentation of Mechanical Device: Intermittent pneumatic compression device Consult Discharge Plan - Plan Instructions: Colectomy (GEN) Additional Instructions: General Surgical Discharge Instructions 1. No pushing, pulling, or lifting greater than 15 lbs for 2-4 weeks (depending upon procedure). 2. You may shower beginning today, but no tub baths, soaking, or swimming for 2 weeks. 3. You may resume driving when you are off narcotics and are safe to react in a car. 4. Take ibuprofen every 8 hours for discomfort. If this does not relieve discomfort, you may take the as needed Percocet. Take narcotics as directed. Do not take more narcotics then directed and do not share your narcotics with any other person. Do not drink alcohol while on narcotics. 5. Take stool softeners (Colace) or a water based laxative (Miralax) while taking narcotics. You may hold for loose stools. 6. Report any fevers greater than 100.5F, increase abdominal discomfort, drainage that looks like pus, increased redness or pain at the surgical site, or any vomiting. 7. Report any pain in the calves, shortness of breath, or rapid heartbeat. 8. Follow-up in the office as directed. 9. If you were prescribed antibiotics, do not stop them without talking to your provider. Referrals: Rafita Frazier MD [Non-Partnered Physician] - 10/19/17 2:05 pm Prescriptions: OxyCODONE/APAP 5/325 [Percocet 5/325 MG] 1 each PO Q6HR PRN 7 Days #28 tablet PRN Reason: Pain Ibuprofen [Motrin] 800 mg PO Q8HR PRN #42 tablet PRN Reason: Pain <Guillermo Murphy - Last Filed: 10/09/17 11:17> Date of Encounter: 10/08/17 Objective - Labs 10/06/17 06:01 10/06/17 06:01 - Attending Attestation I examined this patient and my medical decision-making was reviewed with the Resident Physician. I agree with the documented findings, disposition and treatment plan as described except to the extent set forth below. The patient is seen and evaluated on morning rounds with resident. She is ready for discharge to extended care facility for rehabilitation as soon as a bed is available. Hopefully we will arrange discharge for later today. Guillermo Murphy MD FACS
== END 2017-10-08 14:11 | DRG 230 ==
LOC: SAMDAY 06:08 → 3ANU 14:47
PROVIDERS: ADMIT Surgery; ATTEND Surgery

== ENCOUNTER 2017-10-13 21:02 | Inpatient (IN) ==
[2017-10-13] MEDS ORDERED: Ondansetron 4 MG/2 ML VIAL IVP ONE (21:15)
[2017-10-13] MEDS ORDERED: 0.9 % Sodium Chloride 1,000 ML IVC ONE (21:15)
[2017-10-13] MEDS ORDERED: *HR* FentaNYL (PF) 100 MCG/2 ML VIAL IVP ONE (21:27)
[2017-10-13] MEDS ORDERED: Isovue-370 500 ML INFUS..BTL IV ONE (21:30)
[2017-10-13 21:38] LABS: Bilirubin,Urine Small (Negative); Blood,Urine Negative (Negative); Clarity,Urine Cloudy (Clear); Color,Urine Dark Yellow (Yellow); Glucose,Urine (UA) Normal (Normal); Ketones,Urine Negative (Negative); Leukocyte Esterase,Urine Negative (Negative); Nitrite,Urine Negative (Negative); Protein,Urine Trace mg/dL (Neg-Trace); Specific Gravity,Urine 1.018 (1.010-1.025); Urobilinogen,Urine Normal (Normal)
[2017-10-13 21:40] LABS: Bacteria,Urine None Seen per hpf (None-Few); RBC,Urine 15-30 per hpf (0-3); Squamous Epithelial Cell,Urine Many per lpf (None-Few); WBC,Urine 15-30 per hpf (0-3)
[2017-10-13 21:53] LABS: Hyaline Casts,Urine Moderate per lpf (None-Few); Renal Epithelial Cells,Urine Few per hpf (None-Few)
--- NOTE | 2017-10-13 21:59 | Emergency Department Note ---
Disposition Clinical Impression: Wound infection Abdominal pain Qualifiers: Abdominal location: generalized Qualified Code(s): R10.84 - Generalized abdominal pain Nausea & vomiting Qualifiers: Vomiting type: unspecified Vomiting Intractability: non-intractable Qualified Code(s): R11.2 - Nausea with vomiting, unspecified Disposition: Admitted As Inpatient Condition: Good Time of Disposition: 07:00 General Adult HPI - General Stated complaint: abdominal pain Time Seen by Provider: 10/13/17 21:15 Source: patient Nursing Notes Reviewed: Yes Vital Signs Reviewed: Yes - History of Present Illness HPI Narrative: Patient complaining of abdominal pain is significantly worse since her surgery. Also nausea and vomiting. Recent history of colectomy by Dr. Shay. Pain Scale: 10 - Related Data Home Medications Medication Instructions Recorded Confirmed Diltiazem CD (24hr) [Cardizem CD] 180 mg PO DAILY 06/27/17 10/14/17 Famotidine [Pepcid] 40 mg PO DAILY 06/27/17 10/14/17 Previous Rx's Medication Instructions Recorded Ibuprofen [Motrin] 800 mg PO Q8HR PRN #42 tablet 10/06/17 OxyCODONE/APAP 5/325 [Percocet 1 each PO Q6HR PRN 7 Days #28 10/06/17 5/325 MG] tablet Allergies Allergy/AdvReac Type Severity Reaction Status Date / Time Penicillins [PCN] Allergy Rash Verified 10/13/17 21:18 niacin AdvReac Flushing Verified 10/13/17 21:18 duracef Allergy See Uncoded 09/23/17 07:03 Comments All systems ED: reviewed and negative except as stated. Constitutional: Denies: fever, chills Cardiovascular: Denies: chest pain Respiratory: Denies: dyspnea Gastrointestinal: Reports: abdominal pain, nausea, vomiting. Denies: diarrhea Neurological: Reports: weakness. Denies: headache Past Medical History - Past Medical History Attestation: Yes The following information was validated with the patient. Source: patient Medical history: Reports: COPD, CVA, GERD, hepatitis, hyperlipidemia, hypertension, other Surgical history: Reports: hysterectomy Psychiatric history: Reports: depression - Social History Smoking Status: Never smoker Smokeless Tobacco Status: Yes (vape) Alcohol use: Reports: none Drug use: Reports: none Physical Exam - General General appearance: alert, in distress (Appears to be in pain) - Head Head exam: atraumatic, normocephalic, normal inspection - Eye Eye exam: Present: normal appearance, PERRL, EOMI - ENT ENT exam: normal exam, normal oropharynx, mucous membranes moist - Neck Neck exam: Present: normal inspection, full ROM, trachea midline - Chest Chest inspection: Present: normal inspection, symmetric chest wall rise - Respiratory Respiratory exam: Present: normal lung sounds bilaterally. Absent: respiratory distress, accessory muscle use - Cardiovascular Cardiovascular exam: Present: regular rate, normal rhythm, normal heart sounds - Abdominal Exam Abdominal exam: Present: soft, tenderness (To palpation diffusely), guarding (2 any abdominal palpation), other (Midline incision. Miguelina present. Packing present. When I take down the dressing there is a purulent discharge.). Absent : distention, rebound, rigidity - Extremities Exam Extremities exam: Present: normal inspection, full ROM, normal capillary refill. Absent: tenderness, pedal edema - Neurological Exam Neurological exam: Present: alert, oriented X3 - Psychiatric Psychiatric exam: Present: normal affect, normal mood - Skin Skin exam: Present: warm, dry, intact, normal color. Absent: rash Course Course Narrative: Female patient presents emergency department sent from the skilled nursing. Patient's complaining of abdominal pain. She did have a partial colectomy and now has a colostomy bag approximately 2 weeks ago. This was done by Dr. Shay. She states that her pain now has increased since the surgery. She had one episode of vomiting earlier. He has a green stool in her ostomy. No blood noted. Her vitals are stable however she does appear to be uncomfortable. We will get basic lab workup on patient scan patient's abdomen. It is soft whenever I palpate however she does grimace on palpation of her whole abdomen. She has a midline incision that has miguelina and packing. She has a purulent discharge from this area. Patient appears to be in pain. She is growing. Lab work shows a leukocytosis. We will get a CT of patient's abdomen with oral contrast. Patient's GFR is decreased to we will withhold the IV contrast at this time. Patient Zofran for her nausea as well as fentanyl to attempt to control her pain. - Reevaluation(s) Reevaluation #1: We will admit patient for postoperative pain as well as the discharge to her abdomen. I spoke with Dr. Murphy and he is agreeable with this plan. Patient has been uncomfortable throughout her stay here. She did get some relief with pain medication. We will defer antibiotic to the surgery team at this time. Patient is not febrile. Time: 00:20 - Consultations Consultation #1: I spoke with Dr Murphy. He is agreeable to accept the patient into the hospital. Will be admitting. He states he will call and set of orders for her. Time: 00:20 Vital Signs Temperature 98.5 F 10/13/17 21:13 Pulse Rate 81 10/13/17 21:13 Respiratory Rate 20 10/13/17 21:13 Blood Pressure 101/58 10/13/17 21:13 O2 Sat by Pulse Oximetry 98 10/13/17 21:13 Temperature 98.2 F 10/14/17 03:18 Pulse Rate 74 10/14/17 03:18 Respiratory Rate 24 10/14/17 03:18 Blood Pressure 130/81 10/14/17 03:18 O2 Sat by Pulse Oximetry 100 10/14/17 03:18 Oxygen Delivery Oxygen Delivery Room Air Medical Decision Making - Medical Records Medical records reviewed: Yes I reviewed the patient's medical records. - Lab Data Lab results reviewed: Yes I reviewed the patient's lab results. Result diagrams: 10/13/17 21:41 10/13/17 21:41 Lab Results 10/13/17 10/13/17 10/13/17 Range/Units 21:27 21:41 21:41 WBC 11.2 H (4.3-11.1) K/mcL RBC 3.34 L (3.82-4.97) M/mcL Hgb 10.8 L (11.5-15.4) g/dL Hct 32.8 L (35.3-44.9) % MCV 98.2 (83.0-100.0) fL MCH 32.3 (28.0-33.3) pg MCHC 32.9 (31.6-35.5) g/dL RDW 15.2 H (11.5-14.5) % Plt Count 130 L (140-400) K/mcL MPV 10.5 (9.4-12.4) fL Immature Gran % 0.4 (0-4) % Seg Neutrophils % 73.1 % Lymphocytes % 15.4 % Monocytes % 10.4 % Eosinophils % 0.3 % Basophils % 0.4 % Neutrophils # 8.2 (1.6-8.9) K/mcL Lymphocytes # 1.7 (0.6-4.6) K/mcL Monocytes # 1.2 (0.0-1.3) K/mcL Eosinophils # 0.0 (0.0-0.6) K/mcL Basophils # 0.1 (0.0-0.2) K/mcL Sodium 131 L (136-145) mEq/L Potassium 4.3 (3.5-5.1) mEq/L Chloride 96 L (98-107) mEq/L Carbon Dioxide 26 (23-29) mEq/L BUN 25 H (8-23) mg/dL Creatinine 1.84 H (0.60-1.20) mg/dL Est GFR ( Amer) 33 L (> 60) Est GFR (Non-Af Amer) 28 L (> 60) BUN/Creatinine Ratio 14 (6-26) Glucose 118 H (70-105) mg/dL Calculated Osmolality 277 L (280-300) Lactic Acid (0.5-2.2) mmol/L Calcium 8.7 (8.6-10.3) mg/dL Total Bilirubin 2.4 H (0.3-1.0) mg/dL Direct Bilirubin 1.2 H (0.0-0.2) mg/dL Indirect Bilirubin 1.2 (0.0-1.2) mg/dL AST 60 H (13-39) Units/L ALT 34 (7-52) Units/L Alkaline Phosphatase 108 H (34-104) Units/L Serum Total Protein 6.8 (6.4-8.9) g/dL Albumin 3.0 L (3.5-5.7) g/dL Globulin 3.8 H (2.4-3.5) g/dL Albumin/Globulin Ratio 0.8 L (1.1-2.2) Lipase 68 (11-82) Units/L Urine Color Dark Yellow (Yellow) Urine Clarity Cloudy A (Clear) Urine pH 6.0 (5.0-8.0) pH Units Ur Specific Linneus 1.018 (1.010-1.025) Urine Protein Trace (Neg-Trace) mg/dL Urine Glucose (UA) Normal (Normal) mg/dL Urine Ketones Negative (Negative) mg/dL Urine Blood Negative (Negative) Urine Nitrite Negative (Negative) Urine Bilirubin Small H (Negative) Urine Urobilinogen Normal (Normal) mg/dL Ur Leukocyte Esterase Negative (Negative) Urine Microscopic RBC 15-30 H (0-3) per hpf Urine Microscopic WBC 15-30 H (0-3) per hpf Ur Squamous Epith Cells Many H (None-Few) per lpf Ur Renal Epithelial Cell Few (None-Few) per hpf Urine Bacteria None Seen (None-Few) per hpf Hyaline Casts Moderate H (None-Few) per lpf Ur Culture Indicated? NO (NO) 10/13/17 Range/Units 21:41 WBC (4.3-11.1) K/mcL RBC (3.82-4.97) M/mcL Hgb (11.5-15.4) g/dL Hct (35.3-44.9) % MCV (83.0-100.0) fL MCH (28.0-33.3) pg MCHC (31.6-35.5) g/dL RDW (11.5-14.5) % Plt Count (140-400) K/mcL MPV (9.4-12.4) fL Immature Gran % (0-4) % Seg Neutrophils % % Lymphocytes % % Monocytes % % Eosinophils % % Basophils % % Neutrophils # (1.6-8.9) K/mcL Lymphocytes # (0.6-4.6) K/mcL Monocytes # (0.0-1.3) K/mcL Eosinophils # (0.0-0.6) K/mcL Basophils # (0.0-0.2) K/mcL Sodium (136-145) mEq/L Potassium (3.5-5.1) mEq/L Chloride (98-107) mEq/L Carbon Dioxide (23-29) mEq/L BUN (8-23) mg/dL Creatinine (0.60-1.20) mg/dL Est GFR ( Amer) (> 60) Est GFR (Non-Af Amer) (> 60) BUN/Creatinine Ratio (6-26) Glucose (70-105) mg/dL Calculated Osmolality (280-300) Lactic Acid 2.0 (0.5-2.2) mmol/L Calcium (8.6-10.3) mg/dL Total Bilirubin (0.3-1.0) mg/dL Direct Bilirubin (0.0-0.2) mg/dL Indirect Bilirubin (0.0-1.2) mg/dL AST (13-39) Units/L ALT (7-52) Units/L Alkaline Phosphatase (34-104) Units/L Serum Total Protein (6.4-8.9) g/dL Albumin (3.5-5.7) g/dL Globulin (2.4-3.5) g/dL Albumin/Globulin Ratio (1.1-2.2) Lipase (11-82) Units/L Urine Color (Yellow) Urine Clarity (Clear) Urine pH (5.0-8.0) pH Units Ur Specific Linneus (1.010-1.025) Urine Protein (Neg-Trace) mg/dL Urine Glucose (UA) (Normal) mg/dL Urine Ketones (Negative) mg/dL Urine Blood (Negative) Urine Nitrite (Negative) Urine Bilirubin (Negative) Urine Urobilinogen (Normal) mg/dL Ur Leukocyte Esterase (Negative) Urine Microscopic RBC (0-3) per hpf Urine Microscopic WBC (0-3) per hpf Ur Squamous Epith Cells (None-Few) per lpf Ur Renal Epithelial Cell (None-Few) per hpf Urine Bacteria (None-Few) per hpf Hyaline Casts (None-Few) per lpf Ur Culture Indicated? (NO) - Radiology Data Radiology results reviewed: Yes I reviewed the patient's radiology results. Abdomen/Pelvis CT 10/13/17 21:30 IMPRESSION: Status post colectomy and right lower quadrant ostomy. Borderline prominent fluid fluid small bowel loops likely representing postoperative ileus. No obvious free intraperitoneal air. Small amount of pelvic and perihepatic free fluid. Cholelithiasis. D/ / Salty Rubio MD / Salty Rubio MD Interpreting Provider: Salty Rubio MD - EKG Data EKG #1 EKG attestation: Yes I reviewed and interpreted this EKG. EKG results narrative: Normal sinus rhythm at a rate of 68. SC interval is 147. QRS duration is 84. QT is 383. QTC is 401. No signs of acute ischemia. Attestation Statement - Attestation Attestation: I examined this patient and my medical decision-making was reviewed with the Resident Physician. I agree with the documented findings, disposition and treatment plan as described except to the extent set forth below. Findings consistent with possible postoperative wound infection. CT shows no evidence of perforation. There is no fluid collection identifiable. Discussed case with surgery we will proceed with admission for antibiotic treatment.
[2017-10-13 22:02] LABS: Basophils # 0.1 K/mcL (0.0-0.2); Basophils % 0.4 %; Eosinophils % 0.3 %; Hematocrit 32.8 % (35.3-44.9); Hemoglobin 10.8 g/dL (11.5-15.4); Immature Granulocytes % 0.4 % (0-4); Lymphocytes # 1.7 K/mcL (0.6-4.6); Lymphocytes % 15.4 %; Mean Corpuscular HGB Conc 32.9 g/dL (31.6-35.5); Mean Corpuscular Hemoglobin 32.3 pg (28.0-33.3); Mean Corpuscular Volume 98.2 fL (83.0-100.0); Mean Platelet Volume 10.5 fL (9.4-12.4); Monocytes # 1.2 K/mcL (0.0-1.3); Monocytes % 10.4 %; Neutrophils # 8.2 K/mcL (1.6-8.9); Platelet Count 130 K/mcL (140-400); Red Blood Count 3.34 M/mcL (3.82-4.97); Red Cell Distribution Width 15.2 % (11.5-14.5); Segmented Neutrophils % 73.1 %
[2017-10-13 22:20] LABS: Albumin/Globulin Ratio 0.8 (1.1-2.2); Bilirubin,Direct 1.2 mg/dL (0.0-0.2); Bilirubin,Indirect 1.2 mg/dL (0.0-1.2); Bilirubin,Total 2.4 mg/dL (0.3-1.0); Calcium 8.7 mg/dL (8.6-10.3); Globulin 3.8 g/dL (2.4-3.5); Potassium 4.3 mEq/L (3.5-5.1); Total Protein 6.8 g/dL (6.4-8.9)
[2017-10-14] MEDS ORDERED: *HR* OxyCODONE/APAP 10/325 TABLET PO PRN (01:49)
[2017-10-14] MEDS ORDERED: 0.9 % Sodium Chloride 1,000 ML IVC SCH (02:00)
[2017-10-14] MEDS: OXYCODONE Oral CONC 10 MG/0.5 ML ORAL.SYG SL PRN (02:07)
[2017-10-14] MEDS: Ondansetron 4 MG/2 ML VIAL IVP PRN ×2 (02:20→07:41)
[2017-10-14] MEDS: MetroNIDAZOLE 500 MG/100 ML 500 MG/100 ML BAG IVPB SCH ×3 (02:50→17:46)
[2017-10-14] MEDS: Levofloxacin 500 MG/100 ML 500 MG/100 ML BAG IVPB SCH (02:51)
[2017-10-14] MEDS ORDERED: *HR* Morphine 2 MG/ML SYRINGE IVP ONE (03:38)
[2017-10-14] MEDS: *HR* Promethazine 25 MG/ML VIAL IVP PRN ×2 (03:53→20:14)
[2017-10-14] MEDS: *HR* Morphine 2 MG/ML SYRINGE IVP PRN ×2 (07:40→15:33)
--- NOTE | 2017-10-14 09:06 | General Surg History&Physical ---
Date of Encounter: 10/14/17 Time of Encounter: 09:00 Assessment and Plan (1) Postoperative ileus Current Visit: Yes Status: Acute s/p sigmoidectomy with diverting loop ileostomy; admitted with bilious vomiting , no evidence of obstruction; placed NG tube with immediate output of gastric contents, somewhat bilious; NPO IVF: bolus with NS, then start D5NS @ 100 limit narcotics monitor NG output, monitor ileostomy output if ileostomy output > 1L, then will start loperamide (2mg with meals) and psyllium (1 packet/day); replete electrolytes: K@4.0, Mg@2.0, PO4@3.0 activity as tolerated PT/OT while inpatient cont NG for at least 24hrs The assessment and plan as outlined above was discussed with the patient and/or family members who expressed understanding and agreement. All questions were answered. (2) Dehydration Current Visit: Yes Status: Acute see above repeat lactate and BMP in AM The assessment and plan as outlined above was discussed with the patient and/or family members who expressed understanding and agreement. All questions were answered. (3) Acute kidney failure Current Visit: Yes Status: Acute The assessment and plan as outlined above was discussed with the patient and/or family members who expressed understanding and agreement. All questions were answered. Qualifiers: Acute renal failure type: unspecified Qualified Code(s): N17.9 - Acute kidney failure, unspecified (4) Hyponatremia Current Visit: Yes Status: Acute see above likely related to vomiting give NS repeat labs in AM The assessment and plan as outlined above was discussed with the patient and/or family members who expressed understanding and agreement. All questions were answered. (5) Hypochloremia Current Visit: Yes Status: Acute see above The assessment and plan as outlined above was discussed with the patient and/or family members who expressed understanding and agreement. All questions were answered. History of Present Illness Chief complaint: abdominal pain, nausea/vomiting HPI: Ms. Jessica is a 62 year old female h/o HTn, COPD, CAD/CVA, hepatitis C, diverticulitis s/p HALS converted to open sigmoidectomy with diverting loop ileostomy complicated by high ileostomy output, subsequent ileus and fascial dehiscence s/p fascial closure who now presents, after discharge to a SNF, with abdominal pain, nausea and vomiting x 1 day. The patient states she was doing well, tolerating a diet and having good ostomy output until that changed. She reported abdominal pain in no particular location with associated bilious vomiting. She was admitted to [facility] for further evaluation. On exam she was found to have bilious vomitus on her gown and output in her ostomy (gas and stool), her labs were suggestive of dehydration, and her CT scan (which was evaluated and interpreted by me) was consistent with post operative ileus. Past Med Surg Social Fam HX - Past Medical History Medical history: COPD, CVA, GERD, hepatitis, hyperlipidemia, hypertension, other Psychiatric history: depression - Past Surgical History Surgical History: hysterectomy - Social History Smoking Status: Never smoker Smokeless Tobacco Status: Yes (vape) Alcohol use: none Drug use: none - Family History Father Living Status: Hx Family Cardiac Disorders: Yes Hx Family Respiratory Disorders: Yes Hx Family Cancer: No Hx Family GI Disorders: No Hx Family Endocrine Disorder: No Hx Family Neuromuscular Disorders: No Hx Family Neurologic Disorders: No Hx Family HEENT Disorders: No Hx Family Autoimmune Disorders: Yes Medications and Allergies Diltiazem CD (24hr) [Cardizem CD] 180 mg PO DAILY 06/27/17 [History] Famotidine [Pepcid] 40 mg PO DAILY 06/27/17 [History] Ibuprofen [Motrin] 800 mg PO Q8HR PRN #42 tablet 10/06/17 [Rx] OxyCODONE/APAP 5/325 [Percocet 5/325 MG] 1 each PO Q6HR PRN 7 Days #28 tablet [Rx] 3 Allergy/AdvReac Type Severity Reaction Status Date / Time Penicillins [PCN] Allergy Rash Verified 10/13/17 21:18 niacin AdvReac Flushing Verified 10/13/17 21:18 duracef Allergy See Uncoded 09/23/17 07:03 Comments Review of Systems All systems PM: The remainder of the systems were reviewed and are negative General Surgery Exam Initial Vital Signs Temp Pulse Resp BP Pulse Ox 98.5 F 81 20 101/58 98 10/13/17 21:13 10/13/17 21:13 10/13/17 21:13 10/13/17 21:13 10/13/17 21:13 - General physical appearance well developed, no distress - Eyes normal ocular movement - ENT normocephalic - Neck no lymphadectomy - Respiratory normal expansion, normal respiratory effort - Cardiovascular Cardiovascular exam: Present: RRR - Abdomen Abdomen general surgery: Present: soft, distended (minimally distended), tender (minimally tender on exam) - Incision Incision: Present: draining, intact, purulent, serous - Rectum Rectum: Present: other (ostomy: pink, viable) - Integumentary Integumentary general surgery: Present: warm and dry - Neurologic Present: CN 2-12 grossly intact - Musculoskeletal Present: normal posture - Psychiatric Psychiatric general surgery: Present: A&Ox3 Results - Labs 10/13/17 21:41 10/13/17 21:41 Abnormal lab results WBC 11.2 K/mcL (4.3-11.1) H 10/13/17 21:41 RBC 3.34 M/mcL (3.82-4.97) L 10/13/17 21:41 Hgb 10.8 g/dL (11.5-15.4) L 10/13/17 21:41 Hct 32.8 % (35.3-44.9) L 10/13/17 21:41 RDW 15.2 % (11.5-14.5) H 10/13/17 21:41 Plt Count 130 K/mcL (140-400) L 10/13/17 21:41 Sodium 131 mEq/L (136-145) L 10/13/17 21:41 Chloride 96 mEq/L (98-107) L 10/13/17 21:41 BUN 25 mg/dL (8-23) H 10/13/17 21:41 Creatinine 1.84 mg/dL (0.60-1.20) H 10/13/17 21:41 Est GFR ( Amer) 33 (> 60) L 10/13/17 21:41 Est GFR (Non-Af Amer) 28 (> 60) L 10/13/17 21:41 Glucose 118 mg/dL (70-105) H 10/13/17 21:41 Calculated Osmolality 277 (280-300) L 10/13/17 21:41 Total Bilirubin 2.4 mg/dL (0.3-1.0) H 10/13/17 21:41 Direct Bilirubin 1.2 mg/dL (0.0-0.2) H 10/13/17 21:41 AST 60 Units/L (13-39) H 10/13/17 21:41 Alkaline Phosphatase 108 Units/L (34-104) H 10/13/17 21:41 Albumin 3.0 g/dL (3.5-5.7) L 10/13/17 21:41 Globulin 3.8 g/dL (2.4-3.5) H 10/13/17 21:41 Albumin/Globulin Ratio 0.8 (1.1-2.2) L 10/13/17 21:41 Urine Clarity Cloudy (Clear) A 10/13/17 21:27 Urine Bilirubin Small (Negative) H 10/13/17 21:27 Urine Microscopic RBC 15-30 per hpf (0-3) H 10/13/17 21:27 Urine Microscopic WBC 15-30 per hpf (0-3) H 10/13/17 21:27 Ur Squamous Epith Cells Many per lpf (None-Few) H 10/13/17 21:27 Hyaline Casts Moderate per lpf (None-Few) H 10/13/17 21:27 All other labs normal. - Imaging CT scan - abdomen: report reviewed, image reviewed CT scan - pelvis: report reviewed, image reviewed
[2017-10-14] MEDS: 0.9 % Sodium Chloride 1,000 ML IVC SCH ×3 (09:19→13:25)
[2017-10-14] MEDS ORDERED: D5% in 0.45% NACL 1,000 ML IVC SCH (09:45)
[2017-10-14 10:40] LABS: Calcium 7.9 mg/dL (8.6-10.3); Magnesium 1.2 mg/dL (1.6-2.6); Phosphorous 3.9 mg/dL (2.7-4.5); Potassium 4.7 mEq/L (3.5-5.1)
[2017-10-14] MEDS: D5% in 0.9% NACL 1,000 ML IVC SCH (13:20)
[2017-10-15] MEDS: D5% in 0.9% NACL 1,000 ML IVC SCH ×2 (03:03→17:30)
[2017-10-15] MEDS: MetroNIDAZOLE 500 MG/100 ML 500 MG/100 ML BAG IVPB SCH ×3 (03:03→20:10)
[2017-10-15] MEDS: *HR* Promethazine 25 MG/ML VIAL IVP PRN ×2 (04:56→16:31)
--- NOTE | 2017-10-15 06:29 | Electrocardiograph Report ---
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
[2017-10-15] MEDS: *HR* Morphine 2 MG/ML SYRINGE IVP PRN ×2 (06:40→21:13)
[2017-10-15 07:16] LABS: Basophils # 0.1 K/mcL (0.0-0.2); Basophils % 0.5 %; Hematocrit 33.2 % (35.3-44.9); Hemoglobin 10.9 g/dL (11.5-15.4); Immature Granulocytes % 0.3 % (0-4); Lymphocytes # 1.5 K/mcL (0.6-4.6); Lymphocytes % 14.5 %; Mean Corpuscular HGB Conc 32.8 g/dL (31.6-35.5); Mean Corpuscular Hemoglobin 32.2 pg (28.0-33.3); Mean Corpuscular Volume 98.2 fL (83.0-100.0); Mean Platelet Volume 10.6 fL (9.4-12.4); Monocytes # 1.1 K/mcL (0.0-1.3); Monocytes % 10.7 %; Neutrophils # 7.8 K/mcL (1.6-8.9); Platelet Count 129 K/mcL (140-400); Red Blood Count 3.38 M/mcL (3.82-4.97); Red Cell Distribution Width 15.2 % (11.5-14.5)
[2017-10-15 07:37] LABS: BUN/Creatinine Ratio 18 (6-26); Blood Urea Nitrogen 17 mg/dL (8-23); Calcium 8.4 mg/dL (8.6-10.3); Carbon Dioxide 21 mEq/L (23-29); Chloride 108 mEq/L (98-107); Glucose 164 mg/dL (70-105); Magnesium 2.1 mg/dL (1.6-2.6); Osmolality,Calculated 289 (280-300); Phosphorous 2.6 mg/dL (2.7-4.5); Potassium 3.8 mEq/L (3.5-5.1); Sodium 137 mEq/L (136-145); eGFR For African Americans > 60 (> 60); eGFR For Non-African Americans 59 (> 60)
[2017-10-15] MEDS: Levofloxacin 500 MG/100 ML 500 MG/100 ML BAG IVPB SCH (07:54)
[2017-10-15] MEDS: Ondansetron 4 MG/2 ML VIAL IVP PRN ×2 (07:55→20:12)
[2017-10-15] MEDS: *HR* LORazepam 2 MG/ML VIAL IVP PRN ×2 (08:55→16:31)
--- NOTE | 2017-10-15 13:59 | General Surgery Progress Note ---
<Ric Matthews - Last Filed: 10/15/17 14:35> Date of Encounter: 10/15/17 Time of Encounter: 09:00 - Assessment and Plan (1) Postoperative ileus Current Visit: Yes Status: Acute s/p sigmoidectomy with diverting loop ileostomy; admitted with bilious vomiting , no evidence of obstruction; NG tube 600cc at today's encounter JACQUIE resolved 0.96 (1.15) Hyponatremia resolved 137 (134) Monitoring output from NG tube and ileostomy bag Plan: NPO with ice chips and popsicle q6h continue d5NS replete electrolytes: K@4.0, Mg@2.0, PO4@3.0; repleting K and phos today limit narcotics if ileostomy output > 1L, then will start loperamide (2mg with meals) and psyllium (1 packet/day); activity as tolerated PT/OT while inpatient Subjective Narrative: Ms. Jessica seen and evaluated at bedside. She has been uncomfortable with her NG tube since last night. She denies fevers, pain is controlled. She has decent UOP. Objective Vital Signs - Last 8 Hours Temp Pulse Resp BP Pulse Ox 10/15/17 12:33 98.9 F 77 18 123/78 98 10/15/17 09:00 97.9 F 78 16 142/84 99 Intake and Output 10/14/17 10/15/17 10/15/17 23:59 07:59 15:59 Intake Total 250 / 250 1000 / 1000 0 / 0 Output Total 700 / 700 500 / 500 275 / 275 Balance -450 / -450 500 / 500 -275 / -275 Intake: IV Fluids 250 / 250 1000 / 1000 D5% And 0.9% Nacl 1000 Ml 1,000 100 / 100 900 / 900 ML @ 100 mls/hr IVC .Q10H [facility] Rx#:[id number] Magnesium Sulfate Premix 2gm/ 50 / 50 50mL 2 gm In 50 ml @ 25 mls/hr IVPB Q2H [facility] Rx#:[id number] Flagyl Premix 500 MG/100 ML 500 100 / 100 100 / 100 mg In 100 ml @ 100 mls/hr IVPB Q8H [facility] Rx#:[id number] Oral 0 / 0 0 / 0 0 / 0 Output: Urine 400 / 400 500 / 500 0 / 0 Stool 50 / 50 Gastric Drainage 250 / 250 275 / 275 Other: Meal NPO Percent of Meal Consumed 0% Weight 49.442 kg Blood Glucose* 104 144 143 Patient Weight 10/15/17 23:59 Weight 49.442 kg - General physical appearance well developed, well nourished, other (mild agitation she reports is secondary to the NG tube) - Eyes normal ocular movement - ENT normal mucosa - Neck Neck exam: no lymphadectomy - Respiratory normal expansion, normal respiratory effort, clear to auscultation - Cardiovascular Cardiovascular exam: Present: RRR, no murmurs/rubs/gallops. Absent: JVD - Abdomen Abdomen: Present: soft. Absent: rebound, rigid Additional Comments: ileostomy bag with bowel sweat - Integumentary no abnormal pigmentation - Neurologic normal coordination, normal sensation - Psychiatric speech is normal, memory intact - Labs 10/15/17 06:40 10/15/17 06:40 Diabetes panel 10/15/17 Range/Units 06:40 Sodium 137 (136-145) mEq/L Potassium 3.8 (3.5-5.1) mEq/L Chloride 108 H (98-107) mEq/L Carbon Dioxide 21 L (23-29) mEq/L BUN 17 (8-23) mg/dL Creatinine 0.96 (0.60-1.20) mg/dL Glucose 164 H (70-105) mg/dL Calcium 8.4 L (8.6-10.3) mg/dL Calcium panel 10/15/17 Range/Units 06:40 Calcium 8.4 L (8.6-10.3) mg/dL Phosphorus 2.6 L (2.7-4.5) mg/dL Pituitary panel 10/15/17 Range/Units 06:40 Sodium 137 (136-145) mEq/L Potassium 3.8 (3.5-5.1) mEq/L Chloride 108 H (98-107) mEq/L Carbon Dioxide 21 L (23-29) mEq/L BUN 17 (8-23) mg/dL Creatinine 0.96 (0.60-1.20) mg/dL Glucose 164 H (70-105) mg/dL Calcium 8.4 L (8.6-10.3) mg/dL Adrenal panel 10/15/17 Range/Units 06:40 Sodium 137 (136-145) mEq/L Potassium 3.8 (3.5-5.1) mEq/L Chloride 108 H (98-107) mEq/L Carbon Dioxide 21 L (23-29) mEq/L BUN 17 (8-23) mg/dL Creatinine 0.96 (0.60-1.20) mg/dL Glucose 164 H (70-105) mg/dL Calcium 8.4 L (8.6-10.3) mg/dL - VTE Documentation of Mechanical Device: Intermittent pneumatic compression device Consult Discharge Plan - Plan Referrals: Ghanshyam Taylor [Primary Care Provider] - <Tevin Gamino - Last Filed: 10/16/17 08:13> Date of Encounter: 10/15/17 Objective Vital Signs - Last 8 Hours Temp Pulse Resp BP Pulse Ox 10/16/17 06:52 99.3 F 80 16 150/77 99 10/16/17 04:48 98.6 F 78 15 138/81 100 Intake and Output 10/15/17 10/16/17 10/16/17 23:59 07:59 15:59 Intake Total 420 / 420 1100 / 1100 Output Total 300 / 300 1400 / 1400 Balance 120 / 120 -300 / -300 Intake: IV Fluids 360 / 360 1100 / 1100 D5% And 0.9% Nacl 1000 Ml 1,000 1000 / 1000 ML @ 100 mls/hr IVC .Q10H [facility] Rx#:[id number] Flagyl Premix 500 MG/100 ML 500 100 / 100 100 / 100 mg In 100 ml @ 100 mls/hr IVPB Q8H [facility] Rx#:[id number] Potassium Phosphate 44 MEQ In 0 260 / 260 .9 % Sodium Chloride 250 ML @ 40 mls/hr IVPB ONCE ONE Rx#: [id number] Oral 60 / 60 0 / 0 Output: Urine 300 / 300 600 / 600 Stool 400 / 400 Gastric Tube Lavage Amount 0 / 0 Right Nare 0 / 0 Gastric Drainage 400 / 400 Other: Stool Size Small Stool Characteristics Mucoid Stool Color Brown Dark Red Blood # Voids 1 1 Weight 55.4 kg Blood Glucose* 131 130 Patient Weight 10/16/17 23:59 Weight 55.4 kg - Labs 10/16/17 01:50 10/16/17 01:50 Diabetes panel 10/16/17 Range/Units 01:50 Sodium 140 (136-145) mEq/L Potassium 3.4 L (3.5-5.1) mEq/L Chloride 108 H (98-107) mEq/L Carbon Dioxide 25 (23-29) mEq/L BUN 11 (8-23) mg/dL Creatinine 0.75 (0.60-1.20) mg/dL Glucose 146 H (70-105) mg/dL Calcium 8.3 L (8.6-10.3) mg/dL Calcium panel 10/16/17 Range/Units 01:50 Calcium 8.3 L (8.6-10.3) mg/dL Phosphorus 3.8 (2.7-4.5) mg/dL Pituitary panel 10/16/17 Range/Units 01:50 Sodium 140 (136-145) mEq/L Potassium 3.4 L (3.5-5.1) mEq/L Chloride 108 H (98-107) mEq/L Carbon Dioxide 25 (23-29) mEq/L BUN 11 (8-23) mg/dL Creatinine 0.75 (0.60-1.20) mg/dL Glucose 146 H (70-105) mg/dL Calcium 8.3 L (8.6-10.3) mg/dL Adrenal panel 10/16/17 Range/Units 01:50 Sodium 140 (136-145) mEq/L Potassium 3.4 L (3.5-5.1) mEq/L Chloride 108 H (98-107) mEq/L Carbon Dioxide 25 (23-29) mEq/L BUN 11 (8-23) mg/dL Creatinine 0.75 (0.60-1.20) mg/dL Glucose 146 H (70-105) mg/dL Calcium 8.3 L (8.6-10.3) mg/dL - Attending Attestation I examined this patient and my medical decision-making was reviewed with the Resident Physician. I agree with the documented findings, disposition and treatment plan as described except to the extent set forth below. Review the above assessment and evaluation with the resident and agree with the above plan. Overall she appears to be improving. Ostomy with some mild condensation present with slight air. NG tube output decreasing and mild tympany. Continues conservative management.
[2017-10-15] MEDS ORDERED: Potassium Phosphate 44 MEQ in 0.9 % Sodium Chloride 250 ML IVPB ONE (14:33)
[2017-10-15] MEDS: Chloraseptic Spray 177 ML BOTTLE MM PRN (21:13)
[2017-10-16 02:31] LABS: Basophils % 0.2 %; Hematocrit 29.7 % (35.3-44.9); Hemoglobin 9.6 g/dL (11.5-15.4); Immature Granulocytes % 0.3 % (0-4); Lymphocytes # 1.7 K/mcL (0.6-4.6); Lymphocytes % 17.7 %; Mean Corpuscular HGB Conc 32.3 g/dL (31.6-35.5); Mean Platelet Volume 10.7 fL (9.4-12.4); Monocytes % 10.6 %; Neutrophils # 6.7 K/mcL (1.6-8.9); Platelet Count 106 K/mcL (140-400); Red Cell Distribution Width 15.3 % (11.5-14.5); Segmented Neutrophils % 71.2 %
[2017-10-16 02:40] LABS: BUN/Creatinine Ratio 15 (6-26); Blood Urea Nitrogen 11 mg/dL (8-23); Calcium 8.3 mg/dL (8.6-10.3); Carbon Dioxide 25 mEq/L (23-29); Chloride 108 mEq/L (98-107); Glucose 146 mg/dL (70-105); Magnesium 1.5 mg/dL (1.6-2.6); Osmolality,Calculated 292 (280-300); Phosphorous 3.8 mg/dL (2.7-4.5); Potassium 3.4 mEq/L (3.5-5.1); Sodium 140 mEq/L (136-145); eGFR For African Americans > 60 (> 60); eGFR For Non-African Americans > 60 (> 60)
[2017-10-16] MEDS: D5% in 0.9% NACL 1,000 ML IVC SCH ×3 (03:25→18:34)
[2017-10-16] MEDS: MetroNIDAZOLE 500 MG/100 ML 500 MG/100 ML BAG IVPB SCH ×3 (03:36→18:33)
[2017-10-16] MEDS: Levofloxacin 500 MG/100 ML 500 MG/100 ML BAG IVPB SCH (08:06)
[2017-10-16] MEDS ORDERED: Potassium Chloride 40 MEQ, Lidocaine 1% 2 ML in D5% in Water 500 ML IVPB ONE (12:19)
[2017-10-16] MEDS ORDERED: Magnesium Oxide 400 MG TABLET PO ONE (12:19)
[2017-10-16] MEDS: *HR* Morphine 2 MG/ML SYRINGE IVP PRN ×2 (12:29→23:16)
--- NOTE | 2017-10-16 13:30 | General Surgery Progress Note ---
<Ric Matthews - Last Filed: 10/16/17 13:36> Date of Encounter: 10/16/17 Time of Encounter: 09:15 - Assessment and Plan (1) Postoperative ileus Current Visit: Yes Status: Acute s/p sigmoidectomy with diverting loop ileostomy; admitted with bilious vomiting , no evidence of obstruction JACQUIE resolved, hyponatremia resolved First day of this admission with ileostomy output; 400cc so far Plan: 10/16/17 We are transitioning from NG at [facility] to gravity in a jones bag Tomorrow's plan is to try NG clamped continue d5NS replete electrolytes: K@4.0, Mg@2.0, PO4@3.0; repleting K and magnesium today, magnesium first limit narcotics if ileostomy output > 1L, then will start loperamide (2mg with meals) and psyllium (1 packet/day); activity as tolerated PT/OT while inpatient Subjective Patient reports: feels better, bowel movement (into ileostomy), afebrile Narrative: Patient seen and evaluated at bedside. Ms. Jessica states she is feeling a little better compared to yesterday in terms of her abdominal pain. She denies fevers, chills, discomfort from her NG tube. She reports contents inside her ileostomy bag. Objective Vital Signs - Last 8 Hours Temp Pulse Resp BP Pulse Ox 10/16/17 10:10 98.9 F 76 16 132/84 99 10/16/17 06:52 99.3 F 80 16 150/77 99 Intake and Output 10/15/17 10/16/17 10/16/17 23:59 07:59 15:59 Intake Total 420 / 420 1100 / 1100 Output Total 300 / 300 1400 / 1400 0 / 0 Balance 120 / 120 -300 / -300 0 / 0 Intake: IV Fluids 360 / 360 1100 / 1100 D5% And 0.9% Nacl 1000 Ml 1,000 1000 / 1000 ML @ 100 mls/hr IVC .Q10H [facility] Rx#:[id number] Flagyl Premix 500 MG/100 ML 500 100 / 100 100 / 100 mg In 100 ml @ 100 mls/hr IVPB Q8H [facility] Rx#:[id number] Potassium Phosphate 44 MEQ In 0 260 / 260 .9 % Sodium Chloride 250 ML @ 40 mls/hr IVPB ONCE ONE Rx#: [id number] Oral 60 / 60 0 / 0 Output: Urine 300 / 300 600 / 600 0 / 0 Stool 400 / 400 0 / 0 Gastric Tube Lavage Amount 0 / 0 Right Nare 0 / 0 Gastric Drainage 400 / 400 0 / 0 Other: Meal NPO LUNCH Stool Size Small Stool Characteristics Mucoid Stool Color Brown Dark Red Blood # Voids 1 1 Weight 55.4 kg Blood Glucose* 131 130 139 Patient Weight 10/16/17 23:59 Weight 55.4 kg - General physical appearance well developed, well nourished, no distress - Eyes normal ocular movement - ENT normal mucosa - Neck Neck exam: no lymphadectomy - Respiratory normal expansion, normal respiratory effort, clear to auscultation - Cardiovascular Cardiovascular exam: Present: RRR, no murmurs/rubs/gallops. Absent: JVD - Abdomen Abdomen: Present: bowel sounds present, soft Additional Comments: ileostomy bag contains 1/2 filled bag of greenish-brown output - Incision Incision: Present: clean and dry, intact - Neurologic normal coordination, normal sensation - Musculoskeletal normal posture (lying on R side majority of today and yesterday) - Psychiatric speech is normal (has needed ativan due to agitation with ng tube), memory intact - Labs 10/16/17 01:50 10/16/17 01:50 Diabetes panel 10/16/17 Range/Units 01:50 Sodium 140 (136-145) mEq/L Potassium 3.4 L (3.5-5.1) mEq/L Chloride 108 H (98-107) mEq/L Carbon Dioxide 25 (23-29) mEq/L BUN 11 (8-23) mg/dL Creatinine 0.75 (0.60-1.20) mg/dL Glucose 146 H (70-105) mg/dL Calcium 8.3 L (8.6-10.3) mg/dL Calcium panel 10/16/17 Range/Units 01:50 Calcium 8.3 L (8.6-10.3) mg/dL Phosphorus 3.8 (2.7-4.5) mg/dL Pituitary panel 10/16/17 Range/Units 01:50 Sodium 140 (136-145) mEq/L Potassium 3.4 L (3.5-5.1) mEq/L Chloride 108 H (98-107) mEq/L Carbon Dioxide 25 (23-29) mEq/L BUN 11 (8-23) mg/dL Creatinine 0.75 (0.60-1.20) mg/dL Glucose 146 H (70-105) mg/dL Calcium 8.3 L (8.6-10.3) mg/dL Adrenal panel 10/16/17 Range/Units 01:50 Sodium 140 (136-145) mEq/L Potassium 3.4 L (3.5-5.1) mEq/L Chloride 108 H (98-107) mEq/L Carbon Dioxide 25 (23-29) mEq/L BUN 11 (8-23) mg/dL Creatinine 0.75 (0.60-1.20) mg/dL Glucose 146 H (70-105) mg/dL Calcium 8.3 L (8.6-10.3) mg/dL - VTE Documentation of Mechanical Device: Intermittent pneumatic compression device Consult Discharge Plan - Plan Referrals: Ghanshyam Taylor [Primary Care Provider] - <Tevin Gamino - Last Filed: 10/18/17 07:41> Date of Encounter: 10/16/17 Objective Vital Signs - Last 8 Hours Temp Pulse Resp BP Pulse Ox 10/18/17 07:20 98.3 F 75 14 144/90 98 10/18/17 03:42 99.3 F 93 16 122/83 98 Intake and Output 10/17/17 10/17/17 10/18/17 15:59 23:59 07:59 Intake Total 1000 / 1000 1240 / 1240 120 / 120 Output Total 800 / 800 600 / 600 850 / 850 Balance 200 / 200 640 / 640 -730 / -730 Intake: IV Fluids 1000 / 1000 1000 / 1000 D5% And 0.9% Nacl 1000 Ml 1,000 1000 / 1000 1000 / 1000 ML @ 100 mls/hr IVC .Q10H [facility] Rx#:[id number] Oral 240 / 240 120 / 120 Output: Urine 200 / 200 100 / 100 500 / 500 Stool 550 / 550 500 / 500 350 / 350 Gastric Tube Lavage Amount 50 / 50 Right Nare 50 / 50 Other: Meal NPO Stool Consistency liquid liquid Stool Color Green Yellow Green Weight 56.1 kg Blood Glucose* 116 Patient Weight 10/18/17 23:59 Weight 56.1 kg - Labs 10/17/17 04:18 10/17/17 04:18 - Attending Attestation I examined this patient and my medical decision-making was reviewed with the Resident Physician. I agree with the documented findings, disposition and treatment plan as described except to the extent set forth below. I reviewed the above assessment and evaluation and agree with the above plan.
[2017-10-16] MEDS: Chloraseptic Spray 177 ML BOTTLE MM PRN ×2 (17:07→23:15)
[2017-10-17] MEDS: D5% in 0.9% NACL 1,000 ML IVC SCH ×3 (03:40→16:56)
[2017-10-17] MEDS: MetroNIDAZOLE 500 MG/100 ML 500 MG/100 ML BAG IVPB SCH (03:41)
[2017-10-17 04:54] LABS: Hemoglobin 10.1 g/dL (11.5-15.4); Lymphocytes % 20.8 %; Segmented Neutrophils % 68.8 %
[2017-10-17 04:56] LABS: Basophils # 0.1 K/mcL (0.0-0.2); Basophils % 0.5 %; Eosinophils % 0.1 %; Hematocrit 31.5 % (35.3-44.9); Immature Granulocytes % 0.5 % (0-4); Immature Platelets 4.3 % (1.1-6.1); Lymphocytes # 2.3 K/mcL (0.6-4.6); Mean Corpuscular HGB Conc 32.1 g/dL (31.6-35.5); Mean Corpuscular Hemoglobin 31.6 pg (28.0-33.3); Mean Corpuscular Volume 98.4 fL (83.0-100.0); Mean Platelet Volume 10.5 fL (9.4-12.4); Monocytes % 9.3 %; Neutrophils # 7.6 K/mcL (1.6-8.9); Platelet Count 100 K/mcL (140-400); Red Cell Distribution Width 14.8 % (11.5-14.5)
[2017-10-17 05:12] LABS: BUN/Creatinine Ratio 11 (6-26); Blood Urea Nitrogen 7 mg/dL (8-23); Calcium 8.4 mg/dL (8.6-10.3); Carbon Dioxide 24 mEq/L (23-29); Chloride 105 mEq/L (98-107); Glucose 138 mg/dL (70-105); Magnesium 2.1 mg/dL (1.6-2.6); Osmolality,Calculated 278 (280-300); Phosphorous 2.8 mg/dL (2.7-4.5); Potassium 3.6 mEq/L (3.5-5.1); Sodium 134 mEq/L (136-145); eGFR For African Americans > 60 (> 60); eGFR For Non-African Americans > 60 (> 60)
[2017-10-17 05:58] LABS: Alanine Aminotransferase 25 Units/L (7-52); Albumin 2.5 g/dL (3.5-5.7); Albumin/Globulin Ratio 0.8 (1.1-2.2); Alkaline Phosphatase 88 Units/L (34-104); Aspartate Amino Transferase 60 Units/L (13-39); Bilirubin,Direct 0.9 mg/dL (0.0-0.2); Bilirubin,Indirect 1.3 mg/dL (0.0-1.2); Bilirubin,Total 2.2 mg/dL (0.3-1.0); Globulin 3.2 g/dL (2.4-3.5); Total Protein 5.7 g/dL (6.4-8.9)
--- NOTE | 2017-10-17 08:29 | General Surgery Progress Note ---
Date of Encounter: 10/17/17 Time of Encounter: 08:24 - Assessment and Plan (1) Postoperative ileus Current Visit: Yes Status: Acute low NG tube output, abdomen soft, afebrile; good ileostomy output; pink and viable stoma clamp NG tube; check residuals at 1200; cont IVF limit narcotics activity encourage; PT/OT d/c miguelina from lower portion of the wound, pack with guaze elevation of T. bili - if patient begins to have PO intolerance, then will discuss utility of cholecystectomy; - no surgery at the moment; would prefer to await recovery from most recent procedure (2) Dehydration Current Visit: Yes Status: Acute good Cr, good UOP; cont with IVF; will begin to decrease as patient is able to tolerate diet (3) Acute kidney failure Current Visit: Yes Status: Acute resolved Qualifiers: Acute renal failure type: unspecified Qualified Code(s): N17.9 - Acute kidney failure, unspecified (4) Hyponatremia Current Visit: Yes Status: Acute (5) Hypochloremia Current Visit: Yes Status: Acute Subjective Patient reports: no new complaints, feels better, bowel movement (in ostomy bag) , afebrile, other (no acute complaints besides wanting NG out) Objective Vital Signs - Last 8 Hours Temp Pulse Resp BP Pulse Ox 10/17/17 04:00 99.1 F 91 15 133/86 97 Intake and Output 10/16/17 10/17/17 10/17/17 23:59 07:59 15:59 Intake Total 220 / 220 0 / 0 Output Total 250 / 250 250 / 250 Balance -30 / -30 -250 / -250 Intake: IV Fluids 100 / 100 Flagyl Premix 500 MG/100 ML 500 100 / 100 mg In 100 ml @ 100 mls/hr IVPB Q8H [facility] Rx#:[id number] Oral 120 / 120 0 / 0 Output: Urine 250 / 250 0 / 0 Stool 250 / 250 Other: Meal NPO DINNER Weight 55.4 kg Blood Glucose* 176 162 Patient Weight 10/17/17 23:59 Weight 55.4 kg - General physical appearance no distress - Eyes other (no scleral icterus) - ENT normocephalic - Respiratory normal expansion, normal respiratory effort - Cardiovascular Cardiovascular exam: Present: RRR - Abdomen Abdomen: Present: soft, non tender - Incision Incision: Present: draining, intact, purulent, serous - Integumentary no rash - Neurologic CN 2-12 grossly intact - Psychiatric oriented to time, oriented to person, oriented to place - Labs 10/17/17 04:18 10/17/17 04:18 Diabetes panel 10/17/17 Range/Units 04:18 Sodium 134 L (136-145) mEq/L Potassium 3.6 (3.5-5.1) mEq/L Chloride 105 (98-107) mEq/L Carbon Dioxide 24 (23-29) mEq/L BUN 7 L (8-23) mg/dL Creatinine 0.65 (0.60-1.20) mg/dL Glucose 138 H (70-105) mg/dL Calcium 8.4 L (8.6-10.3) mg/dL AST 60 H (13-39) Units/L ALT 25 (7-52) Units/L Alkaline Phosphatase 88 (34-104) Units/L Albumin 2.5 L (3.5-5.7) g/dL Calcium panel 10/17/17 Range/Units 04:18 Calcium 8.4 L (8.6-10.3) mg/dL Phosphorus 2.8 (2.7-4.5) mg/dL Albumin 2.5 L (3.5-5.7) g/dL Pituitary panel 10/17/17 Range/Units 04:18 Sodium 134 L (136-145) mEq/L Potassium 3.6 (3.5-5.1) mEq/L Chloride 105 (98-107) mEq/L Carbon Dioxide 24 (23-29) mEq/L BUN 7 L (8-23) mg/dL Creatinine 0.65 (0.60-1.20) mg/dL Glucose 138 H (70-105) mg/dL Calcium 8.4 L (8.6-10.3) mg/dL Adrenal panel 10/17/17 Range/Units 04:18 Sodium 134 L (136-145) mEq/L Potassium 3.6 (3.5-5.1) mEq/L Chloride 105 (98-107) mEq/L Carbon Dioxide 24 (23-29) mEq/L BUN 7 L (8-23) mg/dL Creatinine 0.65 (0.60-1.20) mg/dL Glucose 138 H (70-105) mg/dL Calcium 8.4 L (8.6-10.3) mg/dL Total Bilirubin 2.2 H (0.3-1.0) mg/dL AST 60 H (13-39) Units/L ALT 25 (7-52) Units/L Alkaline Phosphatase 88 (34-104) Units/L Albumin 2.5 L (3.5-5.7) g/dL - VTE Documentation of Mechanical Device: Intermittent pneumatic compression device Consult Discharge Plan - Plan Referrals: Ghanshyam Taylor [Primary Care Provider] -
[2017-10-17] MEDS: OXYCODONE Oral CONC 10 MG/0.5 ML ORAL.SYG SL PRN ×3 (08:39→19:45)
[2017-10-17] MEDS: Psyllium 1 PACKET POWD.PACK PO SCH ×2 (16:56→20:27)
[2017-10-18] MEDS: D5% in 0.9% NACL 1,000 ML IVC SCH ×3 (02:54→23:25)
[2017-10-18] MEDS: OXYCODONE Oral CONC 10 MG/0.5 ML ORAL.SYG SL PRN (07:44)
[2017-10-18] MEDS: Psyllium 1 PACKET POWD.PACK PO SCH (07:44)
--- NOTE | 2017-10-18 10:49 | General Surgery Progress Note ---
Date of Encounter: 10/18/17 Time of Encounter: 10:39 - Assessment and Plan (1) Postoperative ileus Current Visit: Yes Status: Acute tolerating clears; cont with current diet limit narcotics activity encourage; PT/OT d/c miguelina from lower portion of the wound, pack with guaze on 10/19 elevation of T. bili - if patient begins to have PO intolerance, then will discuss utility of cholecystectomy; - no surgery at the moment; would prefer to await recovery from most recent procedure (2) Dehydration Current Visit: Yes Status: Acute good Cr, good UOP; cont with IVF; will begin to decrease as patient is able to tolerate diet (3) Acute kidney failure Current Visit: Yes Status: Acute resolved Qualifiers: Acute renal failure type: unspecified Qualified Code(s): N17.9 - Acute kidney failure, unspecified (4) Hyponatremia Current Visit: Yes Status: Acute (5) Hypochloremia Current Visit: Yes Status: Acute Subjective Patient reports: no new complaints, flatus, bowel movement (all within ostomy; still liquid; output @ 1.3L; ) Objective Vital Signs - Last 8 Hours Temp Pulse Resp BP Pulse Ox 10/18/17 07:20 98.3 F 75 14 144/90 98 10/18/17 03:42 99.3 F 93 16 122/83 98 Intake and Output 10/17/17 10/18/17 10/18/17 23:59 07:59 15:59 Intake Total 1240 / 1240 120 / 120 0 / 0 Output Total 600 / 600 850 / 850 Balance 640 / 640 -730 / -730 0 / 0 Intake: IV Fluids 1000 / 1000 D5% And 0.9% Nacl 1000 Ml 1,000 1000 / 1000 ML @ 100 mls/hr IVC .Q10H [facility] Rx#:[id number] Oral 240 / 240 120 / 120 0 / 0 Output: Urine 100 / 100 500 / 500 Stool 500 / 500 350 / 350 Other: Meal Breakfast Percent of Meal Consumed 0% Stool Consistency liquid Stool Color Yellow Green Weight 56.1 kg Patient Weight 10/18/17 23:59 Weight 56.1 kg - General physical appearance no distress - Respiratory normal expansion, normal respiratory effort - Cardiovascular Cardiovascular exam: Present: RRR - Abdomen Abdomen: Present: soft, non tender - Incision Incision: Present: clean and dry, intact - Neurologic CN 2-12 grossly intact - Psychiatric oriented to time - Labs 10/17/17 04:18 10/17/17 04:18 - VTE Documentation of Mechanical Device: Intermittent pneumatic compression device Consult Discharge Plan - Plan Referrals: Ghanshyam Taylor [Primary Care Provider] -
[2017-10-18] MEDS: *HR* Heparin 5,000 UNIT/ML VIAL SQ SCH ×2 (13:05→21:55)
[2017-10-19] MEDS: *HR* Heparin 5,000 UNIT/ML VIAL SQ SCH ×3 (05:52→21:56)
--- NOTE | 2017-10-19 07:52 | General Surgery Progress Note ---
Date of Encounter: 10/19/17 Time of Encounter: 07:50 - Assessment and Plan (1) Postoperative ileus Current Visit: Yes Status: Acute tolerating clears; advance to full liquid diet limit narcotics activity encourage; PT/OT d/c miguelina from lower portion of the wound, pack with guaze on 10/19 2mg loperamid TID plan for d/c in 10/20 (2) Dehydration Current Visit: Yes Status: Acute resolved (3) Acute kidney failure Current Visit: Yes Status: Acute resolved Qualifiers: Acute renal failure type: unspecified Qualified Code(s): N17.9 - Acute kidney failure, unspecified (4) Hyponatremia Current Visit: Yes Status: Acute (5) Hypochloremia Current Visit: Yes Status: Acute Subjective Patient reports: no new complaints, feels better, pain is less, tolerating liquids well, flatus, bowel movement, other (low PO intake, but is likey her usual) Objective Vital Signs - Last 8 Hours Temp Pulse Resp BP Pulse Ox 10/19/17 06:26 98.8 F 91 15 146/82 98 10/19/17 04:31 99.3 F 81 14 152/73 99 Intake and Output 10/18/17 10/18/17 10/19/17 15:59 23:59 07:59 Intake Total 1240 / 1240 1060 / 1060 650 / 650 Output Total 325 / 325 550 / 550 500 / 500 Balance 915 / 915 510 / 510 150 / 150 Intake: IV Fluids 1000 / 1000 1000 / 1000 450 / 450 D5% And 0.9% Nacl 1000 Ml 1,000 1000 / 1000 1000 / 1000 450 / 450 ML @ 100 mls/hr IVC .Q10H [facility] Rx#:[id number] Oral 240 / 240 60 / 60 200 / 200 Output: Urine 0 / 0 300 / 300 Stool 325 / 325 550 / 550 200 / 200 Other: Meal Lunch Percent of Meal Consumed 0% Stool Consistency liquid Stool Color Brown Yellow Weight 55.4 kg Patient Weight 10/19/17 23:59 Weight 55.4 kg - General physical appearance no distress - Respiratory normal expansion, normal respiratory effort - Cardiovascular Cardiovascular exam: Present: RRR - Abdomen Abdomen: Present: soft, non tender - Incision Incision: Present: clean and dry, intact - Neurologic CN 2-12 grossly intact - Psychiatric oriented to time, oriented to person - Labs 10/17/17 04:18 10/17/17 04:18 - VTE Documentation of Mechanical Device: Intermittent pneumatic compression device Consult Discharge Plan - Plan Referrals: Ghanshyam Taylor [Primary Care Provider] -
[2017-10-19] MEDS: D5% in 0.9% NACL 1,000 ML IVC SCH (11:04)
[2017-10-19] MEDS: OXYCODONE Oral CONC 10 MG/0.5 ML ORAL.SYG SL PRN ×2 (12:56→21:56)
--- NOTE | 2017-10-19 14:28 | Discharge Summary ---
<Kaity Ragland - Last Filed: 10/19/17 14:25> Date of Encounter: 10/19/17 Time of Encounter: 14:32 - Discharge Diagnosis (1) Postoperative ileus Priority: Primary Status: Resolved (2) S/P colectomy Priority: Primary Status: Acute (3) Abdominal pain Priority: Secondary Status: Resolved Qualifiers: Abdominal location: generalized Qualified Code(s): R10.84 - Generalized abdominal pain (4) Nausea & vomiting Priority: Secondary Status: Resolved Qualifiers: Vomiting type: unspecified Vomiting Intractability: non-intractable Qualified Code(s): R11.2 - Nausea with vomiting, unspecified (5) Tobacco abuse Priority: Secondary Status: Chronic (6) Hepatitis C Priority: Secondary Status: Chronic Qualifiers: Viral hepatitis chronicity: chronic Hepatic coma status: without hepatic coma Qualified Code(s): B18.2 - Chronic viral hepatitis C (7) Wound infection Priority: Secondary Status: Acute (8) Acute kidney failure Priority: Secondary Status: Resolved Qualifiers: Acute renal failure type: unspecified Qualified Code(s): N17.9 - Acute kidney failure, unspecified General Surgery Exam Initial Vital Signs Temp Pulse Resp BP Pulse Ox 98.5 F 81 20 101/58 98 10/13/17 21:13 10/13/17 21:13 10/13/17 21:13 10/13/17 21:13 10/13/17 21:13 - Hospital Course Hospital course: Ms. Jessica is a 62 year old female s/p laparoscopic converted to open sigmoidectomy with diverting loop ileostomy complicated by high ileostomy output , subsequent ileus and fascial dehiscence s/p fascial closure who now presents, after discharge to a SNF, with abdominal pain, nausea and vomiting x 1 day. She was admitted to the hospital and treated for postoperative ileus with conservative measures. The patient did significantly improve with these conservative measures. Her diet has slowly been advanced and she is currently tolerating a full liquid diet. Her vital signs are stable and she is afebrile. Her postoperative pain is well-controlled. She is ambulating and voiding without difficulty. We will continue daily wound care. We will begin discharge planning to inpatient rehabilitation and plan for follow-up in the next 10-14 days in the outpatient surgical office. - Time Spent with Patient Total time spent providing and/or coordinating discharge services: Greater than 30 minutes - Discharge Medications Prescriptions: Ondansetron ODT [Zofran ODT] 4 mg SL Q6HR #15 tab.rapdis OxyCODONE/APAP 5/325 [Percocet 5/325 MG] 1 each PO Q6HR PRN 7 Days #28 tablet PRN Reason: Pain Commode - Three In One [THREE IN ONE COMMODE] 1 each .ROUTE PRN #1 each Diphenoxylate/Atropine [Lomotil 2.5 mg/0.025 mg] 1 tab PO BID PRN 30 Days #60 tablet PRN Reason: Diarrhea Ibuprofen 800 mg PO Q8H #42 tablet Loperamide [Imodium] 8 mg PO QID PRN 15 Days #240 capsule PRN Reason: Excessive ileostomy output Walker Wo Wheels [BRYAN WALKER] 1 each .ROUTE AD #1 each Home Medications: Diltiazem CD (24hr) [Cardizem CD] 180 mg PO DAILY 06/27/17 [History] Ibuprofen [Motrin] 800 mg PO Q8HR PRN #42 tablet 10/06/17 [Rx] raNITIdine HCl [Ranitidine HCl] 300 mg PO DAILY 10/14/17 [History] Heparin 5,000 unit SQ Q8HCO vial 10/19/17 [Rx] OxyCODONE/APAP 5/325 [Percocet 5/325 MG] 1 each PO Q6HR PRN 7 Days #28 tablet [Rx] Commode - Three In One [THREE IN ONE COMMODE] 1 each .ROUTE PRN #1 each [Rx] Diphenoxylate/Atropine [Lomotil 2.5 mg/0.025 mg] 1 tab PO BID PRN 30 Days #60 tablet 10/28/17 [Rx] Ibuprofen 800 mg PO Q8H #42 tablet 10/28/17 [Rx] Loperamide [Imodium] 8 mg PO QID PRN 15 Days #240 capsule 10/28/17 [Rx] Ondansetron ODT [Zofran ODT] 4 mg SL Q6HR #15 tab.rapdis 10/28/17 [Rx] Walker Wo Wheels [BRYAN WALKER] 1 each .ROUTE AD #1 each 10/28/17 [Rx] Allergies/Adverse Reactions: 3 Allergy/AdvReac Type Severity Reaction Status Date / Time Penicillins [PCN] Allergy Rash Verified 10/14/17 09:16 niacin AdvReac Flushing Verified 10/14/17 09:16 duracef Allergy See Uncoded 10/14/17 09:16 Comments Date of admission: 10/14/17 11:29 Primary care physician: Ghanshyam Taylor Consults: 10/14/17 13:50 Consult to Occupational Therapy [CONS] Routine Comment: Evaluate, develop and implement POC Reason for Consult: Mobilization and d/c planning Does patient have active BEDREST order?: No Is patient medically & hemodynamically stable?: Yes Patient assessed for mobility or mobilized this visit?: No Consult to Physical Therapy [CONS] Routine Comment: Evaluate, develop and implement POC Reason for Consult: Mobilization and d/c planning Does patient have active BEDREST order?: Yes Is patient medically & hemodynamically stable?: Yes Patient assessed for mobility or mobilized this visit?: No 10/16/17 15:[address] Sprinkler [CONS] Routine Reason for SW Consult: Patient's family does not want patient to return to [facility] upon discharge. Their goal is to tkae her home. Discharging clinician: Rafita Frazier ([facility]) Anticipated date of discharge: 10/20/17 - Patient Status Disposition: Home Health Service Condition: Good Functional capacity at discharge: uses cane/walker Overall status at discharge: patient is progressing back to baseline - Discharge Instructions Instructions: Ileostomy Care (DC), Laparoscopic Cholecystectomy (DC) Follow Up With: Rafita Frazier MD [Non-Partnered Physician] - 11/16/17 2:05 pm (surgery follow- up) Forms: ED Satisfaction Letter, Work/School Release Additional Instructions: Please review all discharge educational handouts. Please attend scheduled follow-up appointments; appointment dates and times will be provided for you. You are prescribed medication for pain, nausea, and constipation to be used if/ as needed; take as written. Avoid driving if your pain requires that you take opioid analgesics such as oxycodone. Call Dr. Frazier's office if you have fever/chills/sweats/body aches, nausea, vomiting, constipation not relieved with meds you have been prescribed, significant abdominal pain after eating, blood in your stools or blackened stools, or signs of infection at your incision sites (includes increasing redness, increasing warmth, swelling, or pus). Avoid heavy lifting over 15lbs for 6 weeks Ileostomy care- empty bag when one third full and as needed. Change appliance every 5-7 days and as needed if leaking. Wound Care: shower with antibacterial soap; gently wash or allow water to passively run over surgical sites, avoid firm scrubbing of incisional site. May leave incisions open to air or cover with a dry dressing for comfort. Tape to secure. Reinforce or change outer dressing as needed. KARLO drain: remove drain sponge. Shower/wash with antibacterial soap. Replace drain sponge. Cover with a dry dressing. Tape to secure. Do not let the KARLO drain dangle from your body. Secure the ball to clothing with a safety pin or suspend from a lanyard when showering. Call your PCP for other concerns if any arise. - Diet and Activity Activity: other (See additional instructions above) Diet: other (Soft diet with protein supplements TID with meals) - Attending Attestation For this encounter, I have reviewed the ASTRO TECHNICIAN or PA documentation, treatment plan, and medical decision making; and I have had face to face time with this patient. <Hermann Reed - Last Filed: 10/28/17 11:15> Date of Encounter: 10/28/17 Time of Encounter: 11:23 - Discharge Diagnosis (1) Postoperative ileus Priority: Primary Status: Resolved (2) S/P colectomy Status: Acute (3) S/P cholecystectomy Priority: Primary Status: Acute (4) Cholecystitis, acute Priority: Primary Status: Resolved (5) Anemia Priority: Secondary Status: Resolved Qualifiers: Anemia type: other cause Other causes of anemia: other cause, not classified Qualified Code(s): D64.89 - Other specified anemias General Surgery Exam Initial Vital Signs Temp Pulse Resp BP Pulse Ox 98.5 F 81 20 101/58 98 10/13/17 21:13 10/13/17 21:13 10/13/17 21:13 10/13/17 21:13 10/13/17 21:13 VITAL SIGNS: Reviewed. See [employer] GENERAL: restful. No acute distress, answers questions appropriately HEENT: Normocephalic, PER, oropharynx pink/moist CV: RRR RESPIRATORY: CTAB ABD: soft, BS active, minimal tenderness, no rebound/guarding/rigidity, no peritoneal signs INCISION: well-approximated. No rubor/dolor/edema/calor. Ileostomy: viscous brown stool in ostomy bag EXTREMITY: grossly normal motor function, no pedal edema, peripheral pulses 2+ b /l NEUROLOGIC EXAM: AOx3, obeys commands, no speech deficits. PSYCHIATRIC: normal mood and affect SKIN: no gross lesions, rashes, or skin changes - Hospital Course Hospital course: Ms. Jessica is a 62 year old female status post laparoscopic converted open sigmoidectomy with diverging loop ileostomy, with high rate liquid ileostomy output. [facility] and readmitted to this service for high ileostomy output, ileus/pain, and dehydration. Initially treated conservatively with waxing/waning symptomatic improvement. Overall has had generally poor PO intake stating she has no appetite and that when she does eat , she develops bloating/cramping. Initially was very difficult to encourage to get out of bed and up to the chair. Patient has been taken through multiple stages of feeding with continued inadequate intake being far exceeded by fully liquid ileostomy output. Patient started on loperamide and ultimately titrated up to 8 mg QID as well as Lomotil and mitigates for appetite stimulation. These measures did not seem to turn around patient's output, symptoms, or appetite. On 10/26/2017, patient began to complain of severe abdominal pain that was poorly localized. Patient described severe cramping pain. Re-obtained CT Abd which demonstrated dilated loops of small bowel as well as signs of gallbladder inflammation. Follow-up hepatic panel remarkable for elevated bilirubins, however transaminases were normal. RUQ ultrasound obtained at that time demonstrated findings consistent with acute cholelithiasis, and cholecystitis. Cholecystectomy performed on 10/27/[address] Shay and previous midline incision re-approximated with Daniela. In the time since gallbladder removal, patient has rapidly regained her energy, strength, and appetite. Today, patient is without significant amounts of pain and is eating copious amounts of solid food without any symptomatic provocation or apprehension. TPN was stopped. Patient feels stable for discharge. Patient was able to ambulate in the halls with minimal assistance. PT/OT has been working with the patient and feels the patient is a viable candidate for home health and home PT/OT services. Patient is inclined to go home and feels safe to do so with close assistance by her boyfriend, who is present for this discussion. Return precautions and aftercare instructions provided to patient in verbal and written form. All prescriptions written. Follow-up appointment scheduled. All questions were answered. - Time Spent with Patient Total time spent providing and/or coordinating discharge services: Date of admission: 10/14/17 11:29 Primary care physician: Ghanshyam Taylor Consults: 10/27/17 15:37 PT [Consult to Physical Therapy] [CONS] Routine Comment: Evaluate, develop and implement POC Reason for Consult: post surgery Does patient have active BEDREST order?: No Is patient medically & hemodynamically stable?: Yes 10/27/17 15:38 OT [Consult to Occupational Therapy] [CONS] Routine Comment: Evaluate, develop and implement POC Reason for Consult: post surgery Does patient have active BEDREST order?: No Is patient medically & hemodynamically stable?: Yes Anticipated date of discharge: 10/28/17 Labs on day of discharge: Labs from last 24 hours 10/28/17 10/28/17 10/28/17 07:26 04:00 04:00 WBC 8.7 RBC 3.17 L Hgb 10.0 L D Hct 29.2 L MCV 92.1 MCH 31.5 MCHC 34.2 RDW 14.4 Plt Count 53 L MPV 13.0 H Immature Gran % 0.5 Seg Neutrophils % 79.1 Lymphocytes % 8.6 Monocytes % 11.8 Eosinophils % 0.0 Basophils % 0.0 Neutrophils # 6.9 Lymphocytes # 0.8 Monocytes # 1.0 Eosinophils # 0.0 Basophils # 0.0 Nucleated RBCs/100 WBC 0.2 H Immature Plt Fraction 10.7 H Sodium 129 L Potassium 4.7 Chloride 102 Carbon Dioxide 23 BUN 35 H Creatinine 0.72 Est GFR ( Amer) > 60 Est GFR (Non-Af Amer) > 60 BUN/Creatinine Ratio 49 H Glucose 130 H POC Glucose 148 H Calculated Osmolality 278 L Calcium 8.8 Phosphorus 4.4 Magnesium 2.1 10/28/17 10/27/17 10/27/17 03:36 23:49 19:50 WBC RBC Hgb Hct MCV MCH MCHC RDW Plt Count MPV Immature Gran % Seg Neutrophils % Lymphocytes % Monocytes % Eosinophils % Basophils % Neutrophils # Lymphocytes # Monocytes # Eosinophils # Basophils # Nucleated RBCs/100 WBC Immature Plt Fraction Sodium Potassium Chloride Carbon Dioxide BUN Creatinine Est GFR ( Amer) Est GFR (Non-Af Amer) BUN/Creatinine Ratio Glucose POC Glucose 129 H 154 H 156 H Calculated Osmolality Calcium Phosphorus Magnesium 10/27/17 10/27/17 16:12 11:36 WBC RBC Hgb Hct MCV MCH MCHC RDW Plt Count MPV Immature Gran % Seg Neutrophils % Lymphocytes % Monocytes % Eosinophils % Basophils % Neutrophils # Lymphocytes # Monocytes # Eosinophils # Basophils # Nucleated RBCs/100 WBC Immature Plt Fraction Sodium Potassium Chloride Carbon Dioxide BUN Creatinine Est GFR ( Amer) Est GFR (Non-Af Amer) BUN/Creatinine Ratio Glucose POC Glucose 159 H 172 H Calculated Osmolality Calcium Phosphorus Magnesium - Impressions ITS Impressions Chest/Abdomen X-ray 10/22/17 13:51 IMPRESSION: 1. No acute findings in the chest or abdomen. 2. Right lower quadrant ostomy is noted. 3. Calcific density in the right upper quadrant likely correlates to gallstone seen on earlier CT. D/ / 10/22/2017 14:35:46 Davina Marie MD / yuli Interpreting Provider: Davina Marie MD Abdomen/Pelvis CT 10/25/17 18:30 IMPRESSION: 1. Findings of cirrhosis. Small to moderate ascites. 2. Postsurgical changes in the anterior abdominal wall. No obvious abscess formation. Correlate with exam for any signs of infection. 3. Cholelithiasis. Gallbladder is distended. This could be due to prolonged fasting state. This can also be seen with acute cholecystitis. Correlate with exam. Further evaluation is needed. 4. Transverse colonic wall thickening is likely secondary edema. D/ / Gurpreet Grajeda MD / Gurpreet Grajeda MD Interpreting Provider: Gurpreet Grajeda MD Gallbladder Ultrasound 10/26/17 13:00 IMPRESSION: 1. Cholelithiasis, gallbladder distention and gallbladder wall thickening. Consider acute cholecystitis. 2. Hepatic cirrhosis. Perihepatic ascites. D/ / 10/26/2017 14:55:00 Alfred James MD / blaine Interpreting Provider: Alfred James MD - Patient Status Functional capacity at discharge: uses cane/walker Overall status at discharge: patient is progressing back to baseline - Diet and Activity Activity: other Diet: other <Rafita Frazier - Last Filed: 10/28/17 18:41> Date of Encounter: 10/28/17 - Discharge Diagnosis (1) Postoperative ileus Status: Resolved (2) Poor fluid intake Status: Acute (3) Cholecystitis, acute Status: Resolved General Surgery Exam Initial Vital Signs Temp Pulse Resp BP Pulse Ox 98.5 F 81 20 101/58 98 10/13/17 21:13 10/13/17 21:13 10/13/17 21:13 10/13/17 21:13 10/13/17 21:13 - Hospital Course Hospital course: Ms. Jessica is a 62 year old female - Time Spent with Patient Total time spent providing and/or coordinating discharge services: Date of admission: 10/14/17 11:29 Primary care physician: Ghanshyam Taylor Consults: 10/27/17 15:37 PT [Consult to Physical Therapy] [CONS] Routine Comment: Evaluate, develop and implement POC Reason for Consult: post surgery Does patient have active BEDREST order?: No Is patient medically & hemodynamically stable?: Yes 10/27/17 15:38 OT [Consult to Occupational Therapy] [CONS] Routine Comment: Evaluate, develop and implement POC Reason for Consult: post surgery Does patient have active BEDREST order?: No Is patient medically & hemodynamically stable?: Yes Labs on day of discharge: Labs from last 24 hours 10/28/17 10/28/17 10/28/17 12:08 07:26 04:00 WBC RBC Hgb Hct MCV MCH MCHC RDW Plt Count MPV Immature Gran % Seg Neutrophils % Lymphocytes % Monocytes % Eosinophils % Basophils % Neutrophils # Lymphocytes # Monocytes # Eosinophils # Basophils # Nucleated RBCs/100 WBC Immature Plt Fraction Sodium 129 L Potassium 4.7 Chloride 102 Carbon Dioxide 23 BUN 35 H Creatinine 0.72 Est GFR ( Amer) > 60 Est GFR (Non-Af Amer) > 60 BUN/Creatinine Ratio 49 H Glucose 130 H POC Glucose 147 H 148 H Calculated Osmolality 278 L Calcium 8.8 Phosphorus 4.4 Magnesium 2.1 10/28/17 10/28/17 10/27/17 04:00 03:36 23:49 WBC 8.7 RBC 3.17 L Hgb 10.0 L D Hct 29.2 L MCV 92.1 MCH 31.5 MCHC 34.2 RDW 14.4 Plt Count 53 L MPV 13.0 H Immature Gran % 0.5 Seg Neutrophils % 79.1 Lymphocytes % 8.6 Monocytes % 11.8 Eosinophils % 0.0 Basophils % 0.0 Neutrophils # 6.9 Lymphocytes # 0.8 Monocytes # 1.0 Eosinophils # 0.0 Basophils # 0.0 Nucleated RBCs/100 WBC 0.2 H Immature Plt Fraction 10.7 H Sodium Potassium Chloride Carbon Dioxide BUN Creatinine Est GFR ( Amer) Est GFR (Non-Af Amer) BUN/Creatinine Ratio Glucose POC Glucose 129 H 154 H Calculated Osmolality Calcium Phosphorus Magnesium 10/27/17 10/27/17 10/27/17 19:50 16:12 11:36 WBC RBC Hgb Hct MCV MCH MCHC RDW Plt Count MPV Immature Gran % Seg Neutrophils % Lymphocytes % Monocytes % Eosinophils % Basophils % Neutrophils # Lymphocytes # Monocytes # Eosinophils # Basophils # Nucleated RBCs/100 WBC Immature Plt Fraction Sodium Potassium Chloride Carbon Dioxide BUN Creatinine Est GFR ( Amer) Est GFR (Non-Af Amer) BUN/Creatinine Ratio Glucose POC Glucose 156 H 159 H 172 H Calculated Osmolality Calcium Phosphorus Magnesium - Impressions ITS Impressions Chest/Abdomen X-ray 10/22/17 13:51 IMPRESSION: 1. No acute findings in the chest or abdomen. 2. Right lower quadrant ostomy is noted. 3. Calcific density in the right upper quadrant likely correlates to gallstone seen on earlier CT. D/ / 10/22/2017 14:35:46 Davina Marie MD / yuli Interpreting Provider: Davina Marie MD Abdomen/Pelvis CT 10/25/17 18:30 IMPRESSION: 1. Findings of cirrhosis. Small to moderate ascites. 2. Postsurgical changes in the anterior abdominal wall. No obvious abscess formation. Correlate with exam for any signs of infection. 3. Cholelithiasis. Gallbladder is distended. This could be due to prolonged fasting state. This can also be seen with acute cholecystitis. Correlate with exam. Further evaluation is needed. 4. Transverse colonic wall thickening is likely secondary edema. D/ / Gurpreet Grajeda MD / Gurpreet Grajeda MD Interpreting Provider: Gurpreet Grajeda MD Gallbladder Ultrasound 10/26/17 13:00 IMPRESSION: 1. Cholelithiasis, gallbladder distention and gallbladder wall thickening. Consider acute cholecystitis. 2. Hepatic cirrhosis. Perihepatic ascites. D/ / 10/26/2017 14:55:00 Alfred James MD / blaine Interpreting Provider: Alfred James MD - Attending Attestation I have personally seen and examined the patient. I have reviewed pertinent labs , imaging, progress notes, including this one. I agree with the above assessment and plan.
--- NOTE | 2017-10-19 14:40 | Physician Discharge Referral ---
ExtendedCare Referral Info Transfer To: Inpatient rehabilitation Provider in Charge: Dr. Rafita Frazier Provider in Charge after Transfer: Other (Dr. Rafita Frazier) Institutional Level of Care: Intermediate - Diagnosis (1) Postoperative ileus Priority: Primary Status: Resolved (2) S/P colectomy Priority: Primary Status: Acute (3) Abdominal pain Priority: Secondary Status: Resolved (4) Nausea & vomiting Priority: Secondary Status: Resolved (5) Tobacco abuse Priority: Secondary Status: Chronic (6) Hepatitis C Priority: Secondary Status: Chronic (7) Wound infection Priority: Secondary Status: Acute (8) Acute kidney failure Priority: Secondary Status: Resolved Expected Duration of Placement: less than 30 days Prognosis: Good Aware of Diagnosis: Patient Aware of Prognosis: Patient - Transfer Medications Prescriptions: OxyCODONE/APAP 5/325 [Percocet 5/325 MG] 1 each PO Q6HR PRN 7 Days #28 tablet PRN Reason: Pain Home Medications: Diltiazem CD (24hr) [Cardizem CD] 180 mg PO DAILY 06/27/17 [History] Ibuprofen [Motrin] 800 mg PO Q8HR PRN #42 tablet 10/06/17 [Rx] raNITIdine HCl [Ranitidine HCl] 300 mg PO DAILY 10/14/17 [History] Heparin 5,000 unit SQ Q8HCO vial 10/19/17 [Rx] OxyCODONE/APAP 5/325 [Percocet 5/325 MG] 1 each PO Q6HR PRN 7 Days #28 tablet [Rx] Allergies/Adverse Reactions: 3 Allergy/AdvReac Type Severity Reaction Status Date / Time Penicillins [PCN] Allergy Rash Verified 10/14/17 09:16 niacin AdvReac Flushing Verified 10/14/17 09:16 duracef Allergy See Uncoded 10/14/17 09:16 Comments - Respiratory Orders None Smoking Cessation: Smoking cessation has been advised. For more information, call the [employer] Tobacco Quit Line at 9-145-DUVX-NOW. - Ancillary Orders May use pressure relief devices daily prn, May go on MAHIN w/family/respon constitution party w /meds at nurse discretion PRN, May consult with Dentist, Potato Chip Sacking Machine Operator, [place] Program Coordinator PRN - Advance Directives Code Status: Full Code - Mobility Orders Chair, Ambulate - Rehabiliation Orders Rehab Potential: Good Rehab Orders: ROM Exercises, Evaluation for Physical Therapy, Evaluation for Occupational Therapy Other: #1 may shower, no tub bath for 2 weeks #2 wash incisions with soap and water and pat dry daily #3 no lifting, pushing, pulling more than 15 pounds for the next 6 weeks #4 no driving until off narcotics for 24 hours and able to safely react in the car #5 may climb stairs Ileostomy care- empty bag when one third full and as needed. Change appliance every 5-7 days and as needed if leaking. Wound care(midline)- Cleanse with soap and water in the shower daily and pat dry, pack open area with Mesalt ribbon, cover with dry dressing and tape to secure with paper tape daily. - Treatments Skin tear care topically daily PRN per policy List/Other: #1 may shower, no tub bath for 2 weeks #2 wash incisions with soap and water and pat dry daily #3 no lifting, pushing, pulling more than 15 pounds for the next 6 weeks #4 no driving until off narcotics for 24 hours and able to safely react in the car #5 may climb stairs Ileostomy care- empty bag when one third full and as needed. Change appliance every 5-7 days and as needed if leaking. Wound care(midline)- Cleanse with soap and water in the shower daily and pat dry, pack open area with Mesalt ribbon, cover with dry dressing and tape to secure with paper tape daily. - Diet Orders Mechanical Soft House Supplement per Dietary: protein supplements TID with meals CERTIFICATION: I certify that the transfer of the above named patient to an Extended Care Facility is necessary for the continuing treatment of the diagnosis listed. The above information is true and accurate reflection of patient's current condition. Confidential - Redisclosure prohibited without a patient's written consent.
[2017-10-20] MEDS: *HR* Heparin 5,000 UNIT/ML VIAL SQ SCH ×3 (06:19→22:13)
[2017-10-20] MEDS: D5% in 0.9% NACL 1,000 ML IVC SCH (06:20)
[2017-10-20 07:43] LABS: BUN/Creatinine Ratio 17 (6-26); Blood Urea Nitrogen 10 mg/dL (8-23); Calcium 8.1 mg/dL (8.6-10.3); Carbon Dioxide 26 mEq/L (23-29); Chloride 101 mEq/L (98-107); Glucose 130 mg/dL (70-105); Magnesium 1.3 mg/dL (1.6-2.6); Osmolality,Calculated 281 (280-300); Phosphorous 2.8 mg/dL (2.7-4.5); Sodium 135 mEq/L (136-145); eGFR For African Americans > 60 (> 60); eGFR For Non-African Americans > 60 (> 60)
[2017-10-20] MEDS ORDERED: Potassium Phosphate 44 MEQ in 0.9 % Sodium Chloride 250 ML IVPB ONE (10:35)
--- NOTE | 2017-10-20 10:39 | General Surgery Progress Note ---
Date of Encounter: 10/20/17 Time of Encounter: 10:37 - Assessment and Plan (1) Postoperative ileus Current Visit: Yes Status: Resolved tolerating clears; cont with liquid diet limit narcotics activity encourage; discussed with patient at length about ambulation and activity PT/OT daily wound changes 4mg loperamid BID replete electrolytes; hypokalemia likely from GI losses; plan for d/c in 10/21 (2) Dehydration Current Visit: Yes Status: Acute resolved (3) Acute kidney failure Current Visit: Yes Status: Resolved resolved Qualifiers: Acute renal failure type: unspecified Qualified Code(s): N17.9 - Acute kidney failure, unspecified (4) Hyponatremia Current Visit: Yes Status: Acute (5) Hypochloremia Current Visit: Yes Status: Acute Subjective Patient reports: no new complaints, other (high ileostomy output) Objective Vital Signs - Last 8 Hours Temp Pulse Resp BP Pulse Ox 10/20/17 07:33 98.5 F 86 16 135/87 98 10/20/17 03:40 98.4 F 92 14 127/76 96 Intake and Output 10/19/17 10/20/17 10/20/17 23:59 07:59 15:59 Intake Total 0 / 0 1000 / 1000 Output Total 750 / 750 1050 / 1050 Balance -750 / -750 -50 / -50 Intake: IV Fluids 900 / 900 D5% And 0.9% Nacl 1000 Ml 1,000 900 / 900 ML @ 50 mls/hr IVC .Q20H [facility] Rx#:[id number] Oral 0 / 0 100 / 100 Output: Urine 300 / 300 Stool 750 / 750 750 / 750 Other: Meal Dinner Percent of Meal Consumed 0% Weight 51.7 kg Patient Weight 10/20/17 23:59 Weight 51.7 kg - General physical appearance no distress - Eyes normal ocular movement - Neck Neck exam: no lymphadectomy - Respiratory normal expansion, normal respiratory effort - Cardiovascular Cardiovascular exam: Present: RRR - Abdomen Abdomen: Present: soft, non tender - Incision Incision: Present: draining, purulent, serous, approximated - Neurologic CN 2-12 grossly intact - Psychiatric oriented to time, oriented to person, oriented to place - Labs 10/17/17 04:18 10/20/17 07:04 Diabetes panel 10/20/17 Range/Units 07:04 Sodium 135 L (136-145) mEq/L Potassium 3.0 L (3.5-5.1) mEq/L Chloride 101 (98-107) mEq/L Carbon Dioxide 26 (23-29) mEq/L BUN 10 (8-23) mg/dL Creatinine 0.59 L (0.60-1.20) mg/dL Glucose 130 H (70-105) mg/dL Calcium 8.1 L (8.6-10.3) mg/dL Calcium panel 10/20/17 Range/Units 07:04 Calcium 8.1 L (8.6-10.3) mg/dL Phosphorus 2.8 (2.7-4.5) mg/dL Pituitary panel 10/20/17 Range/Units 07:04 Sodium 135 L (136-145) mEq/L Potassium 3.0 L (3.5-5.1) mEq/L Chloride 101 (98-107) mEq/L Carbon Dioxide 26 (23-29) mEq/L BUN 10 (8-23) mg/dL Creatinine 0.59 L (0.60-1.20) mg/dL Glucose 130 H (70-105) mg/dL Calcium 8.1 L (8.6-10.3) mg/dL Adrenal panel 10/20/17 Range/Units 07:04 Sodium 135 L (136-145) mEq/L Potassium 3.0 L (3.5-5.1) mEq/L Chloride 101 (98-107) mEq/L Carbon Dioxide 26 (23-29) mEq/L BUN 10 (8-23) mg/dL Creatinine 0.59 L (0.60-1.20) mg/dL Glucose 130 H (70-105) mg/dL Calcium 8.1 L (8.6-10.3) mg/dL - VTE Documentation of Mechanical Device: Intermittent pneumatic compression device Consult Discharge Plan - Plan Additional Instructions: #1 may shower, no tub bath for 2 weeks #2 wash incisions with soap and water and pat dry daily #3 no lifting, pushing, pulling more than 15 pounds for the next 6 weeks #4 no driving until off narcotics for 24 hours and able to safely react in the car #5 may climb stairs Ileostomy care- empty bag when one third full and as needed. Change appliance every 5-7 days and as needed if leaking. Wound care(midline)- Cleanse with soap and water in the shower daily and pat dry, pack open area with Mesalt ribbon, cover with dry dressing and tape to secure with paper tape daily. Referrals: Rafita Frazier MD [Non-Partnered Physician] - 11/02/17 2:05 pm (surgery follow- up) Ghanshyam Taylor [Primary Care Provider] - Prescriptions: OxyCODONE/APAP 5/325 [Percocet 5/325 MG] 1 each PO Q6HR PRN 7 Days #28 tablet PRN Reason: Pain
[2017-10-20] MEDS: OXYCODONE Oral CONC 10 MG/0.5 ML ORAL.SYG SL PRN (19:44)
[2017-10-21] MEDS: D5% in 0.9% NACL 1,000 ML IVC SCH ×3 (05:05→23:58)
[2017-10-21] MEDS: *HR* Heparin 5,000 UNIT/ML VIAL SQ SCH ×3 (05:06→21:08)
[2017-10-21 05:48] LABS: BUN/Creatinine Ratio 17 (6-26); Blood Urea Nitrogen 10 mg/dL (8-23); Calcium 8.1 mg/dL (8.6-10.3); Carbon Dioxide 28 mEq/L (23-29); Chloride 100 mEq/L (98-107); Glucose 114 mg/dL (70-105); Osmolality,Calculated 278 (280-300); Potassium 3.1 mEq/L (3.5-5.1); Sodium 134 mEq/L (136-145); eGFR For African Americans > 60 (> 60); eGFR For Non-African Americans > 60 (> 60)
[2017-10-21] MEDS ORDERED: Diphenoxylate/Atropine 1 TAB TABLET PO PRN (07:58)
[2017-10-21] MEDS ORDERED: OXYCODONE Oral CONC 10 MG/0.5 ML ORAL.SYG SL PRN (08:01)
[2017-10-21 08:30] LABS: Magnesium 1.3 mg/dL (1.6-2.6); Phosphorous 3.2 mg/dL (2.7-4.5)
--- NOTE | 2017-10-21 08:43 | General Surgery Progress Note ---
Date of Encounter: 10/21/17 Time of Encounter: 08:40 - Assessment and Plan (1) Postoperative ileus Current Visit: Yes Status: Resolved tolerating clears; cont with liquid diet; encourage PO intake; at least 2L per day; starting TPN today limit narcotics activity encourage; discussed with patient at length again about ambulation and activity; discussed that her time in rehabd and SNF will be prolonged if she does not take ownership of her care; patient was uninterested, but did express that she just wanted to go home PT/OT daily wound changes 8mg loperamid TID 2mg lomotil replete electrolytes; hypokalemia likely from GI losses; will d/c when ileostomy output appropriate (2) Poor fluid intake Current Visit: Yes Status: Acute also discussed the need to keep her nutrition optimized i will start TPN today; will check nutrition labs today with TPN Subjective Patient reports: no new complaints, flatus, bowel movement (all liquid; ~3L over 24hrs; ), other (poor compliance with ambulation and PO intake) Objective Vital Signs - Last 8 Hours Temp Pulse Resp BP Pulse Ox 10/21/17 07:13 98.9 F 81 20 124/82 98 10/21/17 05:37 97.6 F 82 16 117/76 97 Intake and Output 10/20/17 10/21/17 10/21/17 23:59 07:59 15:59 Intake Total 120 / 120 0 / 0 Output Total 1275 / 1275 1050 / 1050 Balance -1155 / -1155 -1050 / -1050 Intake: Oral 120 / 120 0 / 0 Output: Urine 300 / 300 450 / 450 Stool 975 / 975 600 / 600 Other: Meal Dinner Percent of Meal Consumed 5% Stool Consistency liquid Stool Color Yellow Weight 51.664 kg Patient Weight 10/21/17 23:59 Weight 51.664 kg - General physical appearance no distress - Respiratory normal expansion, normal respiratory effort - Cardiovascular Cardiovascular exam: Present: RRR - Abdomen Abdomen: Present: soft, non tender - Incision Incision: Present: clean and dry, intact, approximated - Neurologic CN 2-12 grossly intact - Psychiatric oriented to time, oriented to person, oriented to place - Labs 10/17/17 04:18 10/21/17 03:59 Diabetes panel 10/21/17 Range/Units 03:59 Sodium 134 L (136-145) mEq/L Potassium 3.1 L (3.5-5.1) mEq/L Chloride 100 (98-107) mEq/L Carbon Dioxide 28 (23-29) mEq/L BUN 10 (8-23) mg/dL Creatinine 0.58 L (0.60-1.20) mg/dL Glucose 114 H (70-105) mg/dL Calcium 8.1 L (8.6-10.3) mg/dL Calcium panel 10/21/17 Range/Units 03:59 Calcium 8.1 L (8.6-10.3) mg/dL Phosphorus 3.2 (2.7-4.5) mg/dL Pituitary panel 10/21/17 Range/Units 03:59 Sodium 134 L (136-145) mEq/L Potassium 3.1 L (3.5-5.1) mEq/L Chloride 100 (98-107) mEq/L Carbon Dioxide 28 (23-29) mEq/L BUN 10 (8-23) mg/dL Creatinine 0.58 L (0.60-1.20) mg/dL Glucose 114 H (70-105) mg/dL Calcium 8.1 L (8.6-10.3) mg/dL Adrenal panel 10/21/17 Range/Units 03:59 Sodium 134 L (136-145) mEq/L Potassium 3.1 L (3.5-5.1) mEq/L Chloride 100 (98-107) mEq/L Carbon Dioxide 28 (23-29) mEq/L BUN 10 (8-23) mg/dL Creatinine 0.58 L (0.60-1.20) mg/dL Glucose 114 H (70-105) mg/dL Calcium 8.1 L (8.6-10.3) mg/dL - VTE Documentation of Mechanical Device: Intermittent pneumatic compression device Consult Discharge Plan - Plan Additional Instructions: #1 may shower, no tub bath for 2 weeks #2 wash incisions with soap and water and pat dry daily #3 no lifting, pushing, pulling more than 15 pounds for the next 6 weeks #4 no driving until off narcotics for 24 hours and able to safely react in the car #5 may climb stairs Ileostomy care- empty bag when one third full and as needed. Change appliance every 5-7 days and as needed if leaking. Wound care(midline)- Cleanse with soap and water in the shower daily and pat dry, pack open area with Mesalt ribbon, cover with dry dressing and tape to secure with paper tape daily. Referrals: Rafita Frazier MD [Non-Partnered Physician] - 11/02/17 2:05 pm (surgery follow- up) Prescriptions: OxyCODONE/APAP 5/325 [Percocet 5/325 MG] 1 each PO Q6HR PRN 7 Days #28 tablet PRN Reason: Pain
[2017-10-21] MEDS ORDERED: *HR* Dextrose 50 % in Water (Syg) 50 ML SYRINGE IVP PRN (08:59)
[2017-10-21] MEDS ORDERED: D5% in Water 1,000 ML IVC PRN (08:59)
[2017-10-21] MEDS ORDERED: Dextrose Gel 15 GM/37.5 ML TUBE PO PRN ×2 (08:59)
[2017-10-21] MEDS ORDERED: Lidocaine -MPF 1% 5 ML AMPUL INFILT ONE (10:22)
[2017-10-21] MEDS ORDERED: D10% in Water 500 ML IVC PRN (10:50)
[2017-10-21] MEDS: Insulin LISPRO 300 UNITS/3 ML VIAL SQ SCH ×3 (15:35→20:48)
[2017-10-21] MEDS ORDERED: Clinimix E 5%-15% SOLUTION 2,000 ML with MVI, adult with vitamin K 10 ML IVC SCH (17:00)
[2017-10-21] MEDS: OXYCODONE Oral CONC 10 MG/0.5 ML ORAL.SYG SL PRN (17:07)
[2017-10-22] MEDS: Insulin LISPRO 300 UNITS/3 ML VIAL SQ SCH ×6 (00:18→20:13)
[2017-10-22 04:05] LABS: Immature Granulocytes % 0.2 % (0-4); Mean Corpuscular HGB Conc 34.1 g/dL (31.6-35.5); Mean Platelet Volume 11.8 fL (9.4-12.4); Red Cell Distribution Width 14.6 % (11.5-14.5)
[2017-10-22 04:07] LABS: Basophils % 0.4 %; Eosinophils # 0.1 K/mcL (0.0-0.6); Eosinophils % 1.1 %; Hematocrit 25.8 % (35.3-44.9); Hemoglobin 8.8 g/dL (11.5-15.4); Immature Platelets 4.7 % (1.1-6.1); Mean Corpuscular Volume 96.6 fL (83.0-100.0); Monocytes # 0.7 K/mcL (0.0-1.3); Monocytes % 13.3 %; Nucleated Red Blood Cells 0.6 /100 WBC (0); Red Blood Count 2.67 M/mcL (3.82-4.97)
[2017-10-22 04:19] LABS: Lymphocytes # 1.9 K/mcL (0.6-4.6); Neutrophils # 2.7 K/mcL (1.6-8.9); Platelet Count 54 K/mcL (140-400)
[2017-10-22 04:49] LABS: BUN/Creatinine Ratio 22 (6-26); Blood Urea Nitrogen 12 mg/dL (8-23); Calcium 7.8 mg/dL (8.6-10.3); Carbon Dioxide 29 mEq/L (23-29); Chloride 99 mEq/L (98-107); Glucose 115 mg/dL (70-105); Magnesium 1.3 mg/dL (1.6-2.6); Osmolality,Calculated 277 (280-300); Phosphorous 2.7 mg/dL (2.7-4.5); Sodium 133 mEq/L (136-145); eGFR For African Americans > 60 (> 60); eGFR For Non-African Americans > 60 (> 60)
[2017-10-22 05:17] LABS: Platelet Estimate Decreased (Normal)
[2017-10-22] MEDS: *HR* Heparin 5,000 UNIT/ML VIAL SQ SCH ×3 (05:40→21:07)
--- NOTE | 2017-10-22 11:13 | General Surgery Progress Note ---
Date of Encounter: 10/22/17 Time of Encounter: 10:15 - Assessment and Plan (1) Postoperative ileus Current Visit: Yes Status: Resolved Status post sigmoidectomy with diverging loop ileostomy. She was initially admitted with bilious vomiting. Tolerates clears though she has been difficult to encouraged to take in an adequate amount PO. TPN was initiated yesterday. Continues to have high- volume ileostomy output which is full liquid; is somewhat improving in quantity of volume. Loperamide increased to 8 milligrams TID yesterday. Patient also has some recurrent hypokalemia related to high output ileostomy. - continue with liquid diet and encourage increased PO intake ideally 2 L or more - Continue TPN for now - Continue to limit narcotics - Activity encouraged; will likely require SNF disposition upon discharge - continue PT OT - Continue daily dressing changes - Strictly monitor ileostomy output and oral intake - Continue loperamide a milligrams TID; to milligrams Lomotil - check electrolytes QAM; replete as needed - given 40 mEq KCl by IVPB today - discharge pending stabilization of ileostomy output and proper PO intake/ output balance Abd XR demonstrated no SB dilation or AF levels (2) Anemia Current Visit: Yes Status: Acute emoglobin acutely decreased to a 8.8 g/dL down from 10.1 g/dL on 10/17/2017. No evidence of hemodynamic compromise. patient denies fatigue. No signs of bleeding in ileostomy bag. No peritonitis. Patient has had very poor PO intake and TPN was just initiated yesterday; this may represent a nutritional deficiency. - CBC qAM - Further work up for nutritional or acute loss anemia if does not stabilize - Will continue to monitor hemoglobin is daily and initiate any relevant workup as needed - Transfuse as needed Qualifiers: Anemia type: other cause Other causes of anemia: other cause, not classified Qualified Code(s): D64.89 - Other specified anemias Subjective Narrative: Feels somewhat better compared to subsequent days. Still has some abdominal discomfort. Objective Vital Signs - Last 8 Hours Temp Pulse Resp BP Pulse Ox 10/22/17 10:33 98.4 F 55 15 103/65 99 10/22/17 08:33 96 10/22/17 07:22 98.8 F 85 15 92/60 96 10/22/17 04:03 99.0 F 92 14 101/69 97 Intake and Output 10/21/17 10/22/17 10/22/17 23:59 07:59 15:59 Intake Total 1000 / 1000 1436 / 1436 340 / 340 Output Total 0 / 0 0 / 0 200 / 200 Balance 1000 / 1000 1436 / 1436 140 / 140 Intake: IV Fluids 1000 / 1000 1316 / 1316 D5% And 0.9% Nacl 1000 Ml 1,000 1000 / 1000 420 / 420 ML @ 75 mls/hr IVC .[id number] [facility] Rx#:[id number] Clinimix E 5%-15% SOLUTION 2, 646 / 646 000 ML @ 45 mls/hr IVC .Q24H [facility] with M.v.i. Adult 10 ml Rx# :[id number] Intralipid 20% 250 ML @ 21 mls/ 250 / 250 hr IVPB DAILY@1700 [facility] Rx#: [id number] Oral 0 / 0 120 / 120 340 / 340 Output: Urine 0 / 0 0 / 0 0 / 0 Stool 200 / 200 Other: Stool Consistency liquid Stool Characteristics Normal for Patient Stool Color Brown Weight 52.3 kg Blood Glucose* 156 117 Patient Weight 10/22/17 23:59 Weight 52.3 kg VITAL SIGNS: Reviewed. See [facility] GENERAL: alert and interactive. No acute distress, answers questions appropriately HEENT: Normocephalic, PER, oropharynx pink/moist CV: RRR RESPIRATORY: CTAB ABD: soft, mildly tender, no rebound/guarding/rigidity, no peritoneal signs INCISION: clean, dry, intact without purulence/bleeding/edema/rubor/calor Ileostomy: small amount of fully liquid green stools EXTREMITY: grossly normal motor function, no pedal edema, peripheral pulses 2+ b /l NEUROLOGIC EXAM: AOx3, obeys commands, no speech deficits. PSYCHIATRIC: normal mood and affect SKIN: no gross lesions, rashes, or skin changes - Labs 10/22/17 04:00 10/22/17 03:42 Diabetes panel 10/22/17 10/22/17 Range/Units 03:42 03:42 Sodium 133 L (136-145) mEq/L Potassium 3.0 L (3.5-5.1) mEq/L Chloride 99 (98-107) mEq/L Carbon Dioxide 29 (23-29) mEq/L BUN 12 (8-23) mg/dL Creatinine 0.54 L (0.60-1.20) mg/dL Glucose 115 H (70-105) mg/dL Calcium 7.8 L (8.6-10.3) mg/dL Triglycerides 97 (< 150) mg/dL Calcium panel 10/22/17 Range/Units 03:42 Calcium 7.8 L (8.6-10.3) mg/dL Phosphorus 2.7 (2.7-4.5) mg/dL Pituitary panel 10/22/17 Range/Units 03:42 Sodium 133 L (136-145) mEq/L Potassium 3.0 L (3.5-5.1) mEq/L Chloride 99 (98-107) mEq/L Carbon Dioxide 29 (23-29) mEq/L BUN 12 (8-23) mg/dL Creatinine 0.54 L (0.60-1.20) mg/dL Glucose 115 H (70-105) mg/dL Calcium 7.8 L (8.6-10.3) mg/dL Adrenal panel 10/22/17 Range/Units 03:42 Sodium 133 L (136-145) mEq/L Potassium 3.0 L (3.5-5.1) mEq/L Chloride 99 (98-107) mEq/L Carbon Dioxide 29 (23-29) mEq/L BUN 12 (8-23) mg/dL Creatinine 0.54 L (0.60-1.20) mg/dL Glucose 115 H (70-105) mg/dL Calcium 7.8 L (8.6-10.3) mg/dL - VTE Documentation of Mechanical Device: Intermittent pneumatic compression device Consult Discharge Plan - Plan Additional Instructions: #1 may shower, no tub bath for 2 weeks #2 wash incisions with soap and water and pat dry daily #3 no lifting, pushing, pulling more than 15 pounds for the next 6 weeks #4 no driving until off narcotics for 24 hours and able to safely react in the car #5 may climb stairs Ileostomy care- empty bag when one third full and as needed. Change appliance every 5-7 days and as needed if leaking. Wound care(midline)- Cleanse with soap and water in the shower daily and pat dry, pack open area with Mesalt ribbon, cover with dry dressing and tape to secure with paper tape daily. Referrals: Mcgovern,Rafita J, MD [Non-Partnered Physician] - 11/02/17 2:05 pm (surgery follow- up) Prescriptions: OxyCODONE/APAP 5/325 [Percocet 5/325 MG] 1 each PO Q6HR PRN 7 Days #28 tablet PRN Reason: Pain
[2017-10-22] MEDS: OXYCODONE Oral CONC 10 MG/0.5 ML ORAL.SYG SL PRN ×2 (13:39→21:30)
[2017-10-22] MEDS: *HR* Promethazine 25 MG/ML VIAL IVP PRN (13:46)
[2017-10-22] MEDS ORDERED: Clinimix E 5%-15% SOLUTION 2,000 ML with MVI, adult with vitamin K 10 ML IVC SCH (17:00)
[2017-10-23] MEDS: Insulin LISPRO 300 UNITS/3 ML VIAL SQ SCH ×6 (04:08→20:10)
[2017-10-23 04:10] LABS: Basophils % 0.4 %; Eosinophils # 0.1 K/mcL (0.0-0.6); Hematocrit 24.9 % (35.3-44.9); Hemoglobin 8.4 g/dL (11.5-15.4); Immature Granulocytes % 0.6 % (0-4); Immature Platelets 5.4 % (1.1-6.1); Lymphocytes # 1.6 K/mcL (0.6-4.6); Lymphocytes % 32.5 %; Mean Corpuscular HGB Conc 33.7 g/dL (31.6-35.5); Mean Corpuscular Hemoglobin 32.9 pg (28.0-33.3); Mean Corpuscular Volume 97.6 fL (83.0-100.0); Monocytes # 0.7 K/mcL (0.0-1.3); Monocytes % 13.3 %; Neutrophils # 2.6 K/mcL (1.6-8.9); Nucleated Red Blood Cells 0.8 /100 WBC (0); Red Blood Count 2.55 M/mcL (3.82-4.97); Red Cell Distribution Width 14.4 % (11.5-14.5); Segmented Neutrophils % 52.2 %
[2017-10-23 04:16] LABS: Platelet Count 48 K/mcL (140-400)
[2017-10-23] MEDS: D5% in 0.9% NACL 1,000 ML IVC SCH ×3 (04:37→07:29)
[2017-10-23 04:48] LABS: Platelet Estimate Decreased (Normal); Toxic Granulation Present (Not Present); Toxic Vacuolation Present (Not Present)
[2017-10-23 05:08] LABS: BUN/Creatinine Ratio 33 (6-26); Blood Urea Nitrogen 16 mg/dL (8-23); Calcium 7.9 mg/dL (8.6-10.3); Carbon Dioxide 26 mEq/L (23-29); Chloride 105 mEq/L (98-107); Glucose 86 mg/dL (70-105); Magnesium 1.3 mg/dL (1.6-2.6); Osmolality,Calculated 276 (280-300); Phosphorous 2.4 mg/dL (2.7-4.5); Potassium 4.2 mEq/L (3.5-5.1); Sodium 133 mEq/L (136-145); eGFR For African Americans > 60 (> 60); eGFR For Non-African Americans > 60 (> 60)
[2017-10-23] MEDS: *HR* Heparin 5,000 UNIT/ML VIAL SQ SCH ×3 (05:33→21:40)
--- NOTE | 2017-10-23 09:10 | General Surgery Progress Note ---
Date of Encounter: 10/23/17 Time of Encounter: 09:04 - Assessment and Plan (1) Postoperative ileus Current Visit: Yes Status: Resolved Status post sigmoidectomy with diverging loop ileostomy. She was initially admitted with bilious vomiting. Overall subjectively improving. Abdominal pain from yesterday has resolved. Follow-up x-rays done or unremarkable without any sign of small bowel dilation. Patient still has poor PO intake at about one third the volume of her ileostomy output. Contents of ileostomy bag begin to form up into cell stools combined with otherwise liquid stools. - continue with liquid diet and encourage increased PO intake ideally 2 L or more - Continue TPN for now - Continue to limit narcotics - Continue daily dressing changes - Strictly monitor ileostomy output and oral intake - Continue loperamide 8 milligrams TID; 2 milligrams Lomotil - check electrolytes QAM; replete as needed - discharge pending stabilization of ileostomy output and proper PO intake/ output balance - continue PT OT - Activity encouraged; will likely require SNF disposition upon discharge (2) Anemia Current Visit: Yes Status: Acute Hemoglobin acutely decreased to a 8.4 g/dL down from 8.8 g/dL on 10/22/2017; stable. No evidence of hemodynamic compromise. patient denies fatigue. No signs of bleeding in ileostomy bag. No peritonitis. Patient has had very poor PO intake and is on TPN; this may represent a nutritional deficiency. - CBC qAM - further evaluation if needed Qualifiers: Anemia type: other cause Other causes of anemia: other cause, not classified Qualified Code(s): D64.89 - Other specified anemias Subjective Narrative: Abdominal discomfort patient mentioned yesterday afternoon has resolved. Patient attributes that apple juice stating she gets crampy every time she drinks apple juice. Patient otherwise offered coffee, cream of wheat, and milk ; drinks milk but refuses cream of wheat stating it is too lumpy for her. Afebrile overnight. No nausea/vomiting. Otherwise no new complaints. Objective Vital Signs - Last 8 Hours Temp Pulse Resp BP Pulse Ox 10/23/17 08:03 98 10/23/17 07:49 98.5 F 85 17 100/65 98 10/23/17 03:27 98.8 F 96 15 99/60 98 Intake and Output 10/22/17 10/23/17 10/23/17 23:59 07:59 15:59 Intake Total 691 / 691 2370 / 2370 Output Total 1500 / 1500 525 / 525 350 / 350 Balance -809 / -809 1845 / 1845 -350 / -350 Intake: IV Fluids 691 / 691 2370 / 2370 D5% And 0.9% Nacl 1000 Ml 1,000 0 / 0 1400 / 1400 ML @ 75 mls/hr IVC .[id number] [facility] Rx#:[id number] Clinimix E 5%-15% SOLUTION 2, 191 / 191 720 / 720 000 ML @ 50 mls/hr IVC .Q24H [facility] with M.v.i. Adult 10 ml Rx# :[id number] Intralipid 20% 250 ML @ 21 mls/ 250 / 250 hr IVPB DAILY@1700 [facility] Rx#: [id number] Potassium Chloride 10 mEq/100mL 500 / 500 10 meq In 100 ml @ 100 mls/hr IVPB Q1H [facility] Rx#:[id number] Oral 0 / 0 0 / 0 Output: Urine 200 / 200 300 / 300 200 / 200 Stool 1300 / 1300 225 / 225 150 / 150 Other: Meal Full Percent of Meal Consumed 0% Weight 52.366 kg Blood Glucose* 117 109 Patient Weight 10/23/17 23:59 Weight 52.366 kg VITAL SIGNS: Reviewed. See [facility] GENERAL: alert and interactive. No acute distress, answers questions appropriately HEENT: Normocephalic, PER, oropharynx pink/moist CV: RRR RESPIRATORY: CTAB ABD: soft, minimal tenderness, no rebound/guarding/rigidity, no peritoneal signs INCISION: no signs of infection Ileostomy: small amount of mixed soft and liquid green stool EXTREMITY: grossly normal motor function, no pedal edema, peripheral pulses 2+ b /l NEUROLOGIC EXAM: AOx3, obeys commands, no speech deficits. PSYCHIATRIC: normal mood and affect SKIN: no gross lesions, rashes, or skin changes - Labs 10/23/17 03:44 10/23/17 03:34 Diabetes panel 10/23/17 Range/Units 03:34 Sodium 133 L (136-145) mEq/L Potassium 4.2 D (3.5-5.1) mEq/L Chloride 105 (98-107) mEq/L Carbon Dioxide 26 (23-29) mEq/L BUN 16 (8-23) mg/dL Creatinine 0.48 L (0.60-1.20) mg/dL Glucose 86 (70-105) mg/dL Calcium 7.9 L (8.6-10.3) mg/dL Calcium panel 10/23/17 Range/Units 03:34 Calcium 7.9 L (8.6-10.3) mg/dL Phosphorus 2.4 L (2.7-4.5) mg/dL Pituitary panel 10/23/17 Range/Units 03:34 Sodium 133 L (136-145) mEq/L Potassium 4.2 D (3.5-5.1) mEq/L Chloride 105 (98-107) mEq/L Carbon Dioxide 26 (23-29) mEq/L BUN 16 (8-23) mg/dL Creatinine 0.48 L (0.60-1.20) mg/dL Glucose 86 (70-105) mg/dL Calcium 7.9 L (8.6-10.3) mg/dL Adrenal panel 10/23/17 Range/Units 03:34 Sodium 133 L (136-145) mEq/L Potassium 4.2 D (3.5-5.1) mEq/L Chloride 105 (98-107) mEq/L Carbon Dioxide 26 (23-29) mEq/L BUN 16 (8-23) mg/dL Creatinine 0.48 L (0.60-1.20) mg/dL Glucose 86 (70-105) mg/dL Calcium 7.9 L (8.6-10.3) mg/dL - VTE Documentation of Mechanical Device: Intermittent pneumatic compression device Consult Discharge Plan - Plan Additional Instructions: #1 may shower, no tub bath for 2 weeks #2 wash incisions with soap and water and pat dry daily #3 no lifting, pushing, pulling more than 15 pounds for the next 6 weeks #4 no driving until off narcotics for 24 hours and able to safely react in the car #5 may climb stairs Ileostomy care- empty bag when one third full and as needed. Change appliance every 5-7 days and as needed if leaking. Wound care(midline)- Cleanse with soap and water in the shower daily and pat dry, pack open area with Mesalt ribbon, cover with dry dressing and tape to secure with paper tape daily. Referrals: Rafita Frazier MD [Non-Partnered Physician] - 11/02/17 2:05 pm (surgery follow- up) Prescriptions: OxyCODONE/APAP 5/325 [Percocet 5/325 MG] 1 each PO Q6HR PRN 7 Days #28 tablet PRN Reason: Pain
[2017-10-23] MEDS: *HR* Promethazine 25 MG/ML VIAL IVP PRN (12:28)
[2017-10-23] MEDS: OXYCODONE Oral CONC 10 MG/0.5 ML ORAL.SYG SL PRN ×2 (12:29→21:44)
[2017-10-23] MEDS ORDERED: Clinimix E 5%-15% SOLUTION 2,000 ML with MVI, adult with vitamin K 10 ML IVC SCH (17:00)
[2017-10-24] MEDS: Insulin LISPRO 300 UNITS/3 ML VIAL SQ SCH ×6 (00:21→21:03)
[2017-10-24] MEDS: D5% in 0.9% NACL 1,000 ML IVC SCH (03:13)
[2017-10-24 03:53] LABS: Basophils % 0.4 %; Immature Granulocytes % 0.2 % (0-4)
[2017-10-24 03:55] LABS: Eosinophils # 0.1 K/mcL (0.0-0.6); Eosinophils % 1.2 %; Hematocrit 21.8 % (35.3-44.9); Hemoglobin 7.4 g/dL (11.5-15.4); Immature Platelets 5.5 % (1.1-6.1); Lymphocytes # 1.5 K/mcL (0.6-4.6); Mean Corpuscular HGB Conc 33.9 g/dL (31.6-35.5); Mean Corpuscular Volume 97.3 fL (83.0-100.0); Mean Platelet Volume 11.7 fL (9.4-12.4); Monocytes # 0.7 K/mcL (0.0-1.3); Monocytes % 13.2 %; Neutrophils # 2.7 K/mcL (1.6-8.9); Red Blood Count 2.24 M/mcL (3.82-4.97); Red Cell Distribution Width 14.4 % (11.5-14.5)
[2017-10-24 03:56] LABS: Platelet Count 45 K/mcL (140-400)
[2017-10-24 04:05] LABS: BUN/Creatinine Ratio 37 (6-26); Blood Urea Nitrogen 19 mg/dL (8-23); Calcium 7.7 mg/dL (8.6-10.3); Carbon Dioxide 26 mEq/L (23-29); Chloride 102 mEq/L (98-107); Glucose 102 mg/dL (70-105); Magnesium 1.4 mg/dL (1.6-2.6); Osmolality,Calculated 274 (280-300); Potassium 3.9 mEq/L (3.5-5.1); Sodium 131 mEq/L (136-145); eGFR For African Americans > 60 (> 60); eGFR For Non-African Americans > 60 (> 60)
[2017-10-24] MEDS: *HR* Heparin 5,000 UNIT/ML VIAL SQ SCH ×3 (05:38→21:06)
--- NOTE | 2017-10-24 08:10 | General Surgery Progress Note ---
<Hermann Reed - Last Filed: 10/24/17 09:03> Date of Encounter: 10/24/17 Time of Encounter: 08:08 - Assessment and Plan (1) Postoperative ileus Current Visit: Yes Status: Resolved Status post sigmoidectomy with diverging loop ileostomy. She was initially admitted with bilious vomiting. Patient still has poor PO intake at about 1/4 the volume of her ileostomy output . Contents of ileostomy bag begin to form up into soft stools combined with otherwise liquid stools. - continue with liquid diet and encourage increased PO intake ideally 2 L or more - Continue TPN for now - Continue to limit narcotics - Continue daily dressing changes - Strictly monitor ileostomy output and oral intake - Continue loperamide 8 milligrams TID; 2 milligrams Lomotil - mildly hyponatremic and hypomagnesemic today; K+ normal - check electrolytes QAM; replete as needed - discharge pending stabilization of ileostomy output and proper PO intake/ output balance - continue PT/OT - Activity encouraged; will likely require SNF disposition upon discharge - D/c today or as placement available; pillowcase cutter aware and seeking placement where TPN can be managed. (2) Anemia Current Visit: Yes Status: Acute 7.4 today down from 8.4 on 10/23/2017. No evidence of hemodynamic compromise. Patient denies increasing fatigue. No signs of bleeding in ileostomy bag. No peritonitis. Patient has had very poor PO intake and is on TPN; this may represent a nutritional deficiency. - no signs of gastrointestinal blood loss Qualifiers: Anemia type: other cause Other causes of anemia: other cause, not classified Qualified Code(s): D64.89 - Other specified anemias Subjective Narrative: No recurrent abdominal pain. Patient has had very poor intake at about 300 angelo PO yesterday with a gastric output of 1200 angelo. Stools did appear to be more performed yesterday, however today bag is full and appear to be purely liquid again. No fevers overnight. Vital signs without significant change. Objective Vital Signs - Last 8 Hours Temp Pulse Resp BP Pulse Ox 10/24/17 06:37 98.3 F 77 14 99/60 98 10/24/17 04:22 99.4 F 89 14 99/60 98 Intake and Output 10/23/17 10/24/17 10/24/17 23:59 07:59 15:59 Intake Total 734 / 734 1400 / 1400 Output Total 525 / 525 900 / 900 Balance 209 / 209 500 / 500 Intake: IV Fluids 534 / 534 1000 / 1000 D5% And 0.9% Nacl 1000 Ml 1,000 268 / 268 1000 / 1000 ML @ 75 mls/hr IVC .[id number] [facility] Rx#:[id number] Clinimix E 5%-15% SOLUTION 2, 266 / 266 000 ML @ 50 mls/hr IVC .Q24H [facility] with M.v.i. Adult 10 ml Rx# :[id number] Oral 200 / 200 400 / 400 Output: Urine 200 / 200 400 / 400 Stool 325 / 325 500 / 500 Other: Meal Dinner Percent of Meal Consumed 0% Stool Characteristics Pasty Weight 53.4 kg Blood Glucose* 105 116 Patient Weight 10/24/17 23:59 Weight 53.4 kg VITAL SIGNS: Reviewed. See [facility] GENERAL: alert and interactive. No acute distress, answers questions appropriately HEENT: Normocephalic, PER, oropharynx pink/moist CV: RRR RESPIRATORY: CTAB ABD: soft, minimal tenderness, no rebound/guarding/rigidity, no peritoneal signs INCISION: no signs of infection Ileostomy: bag full with liquid green stool EXTREMITY: grossly normal motor function, no pedal edema, peripheral pulses 2+ b /l NEUROLOGIC EXAM: AOx3, obeys commands, no speech deficits. PSYCHIATRIC: normal mood and affect SKIN: no gross lesions, rashes, or skin changes - Labs 10/24/17 03:38 10/24/17 03:38 Diabetes panel 10/24/17 Range/Units 03:38 Sodium 131 L (136-145) mEq/L Potassium 3.9 (3.5-5.1) mEq/L Chloride 102 (98-107) mEq/L Carbon Dioxide 26 (23-29) mEq/L BUN 19 (8-23) mg/dL Creatinine 0.52 L (0.60-1.20) mg/dL Glucose 102 (70-105) mg/dL Calcium 7.7 L (8.6-10.3) mg/dL Calcium panel 10/24/17 Range/Units 03:38 Calcium 7.7 L (8.6-10.3) mg/dL Phosphorus 3.0 (2.7-4.5) mg/dL Pituitary panel 10/24/17 Range/Units 03:38 Sodium 131 L (136-145) mEq/L Potassium 3.9 (3.5-5.1) mEq/L Chloride 102 (98-107) mEq/L Carbon Dioxide 26 (23-29) mEq/L BUN 19 (8-23) mg/dL Creatinine 0.52 L (0.60-1.20) mg/dL Glucose 102 (70-105) mg/dL Calcium 7.7 L (8.6-10.3) mg/dL Adrenal panel 10/24/17 Range/Units 03:38 Sodium 131 L (136-145) mEq/L Potassium 3.9 (3.5-5.1) mEq/L Chloride 102 (98-107) mEq/L Carbon Dioxide 26 (23-29) mEq/L BUN 19 (8-23) mg/dL Creatinine 0.52 L (0.60-1.20) mg/dL Glucose 102 (70-105) mg/dL Calcium 7.7 L (8.6-10.3) mg/dL - VTE Documentation of Mechanical Device: Intermittent pneumatic compression device Consult Discharge Plan - Plan Additional Instructions: #1 may shower, no tub bath for 2 weeks #2 wash incisions with soap and water and pat dry daily #3 no lifting, pushing, pulling more than 15 pounds for the next 6 weeks #4 no driving until off narcotics for 24 hours and able to safely react in the car #5 may climb stairs Ileostomy care- empty bag when one third full and as needed. Change appliance every 5-7 days and as needed if leaking. Wound care(midline)- Cleanse with soap and water in the shower daily and pat dry, pack open area with Mesalt ribbon, cover with dry dressing and tape to secure with paper tape daily. Referrals: Rafita Frazier MD [Non-Partnered Physician] - 11/02/17 2:05 pm (surgery follow- up) Prescriptions: OxyCODONE/APAP 5/325 [Percocet 5/325 MG] 1 each PO Q6HR PRN 7 Days #28 tablet PRN Reason: Pain <Rafita Frazier - Last Filed: 10/24/17 12:33> Date of Encounter: 10/24/17 - Assessment and Plan (1) Postoperative ileus Current Visit: Yes Status: Resolved (2) Poor fluid intake Current Visit: Yes Status: Acute Objective Vital Signs - Last 8 Hours Temp Pulse Resp BP Pulse Ox 10/24/17 10:41 98.9 F 84 16 97/63 99 10/24/17 06:37 98.3 F 77 14 99/60 98 Intake and Output 10/23/17 10/24/17 10/24/17 23:59 07:59 15:59 Intake Total 734 / 734 1400 / 1400 100 / 100 Output Total 525 / 525 900 / 900 525 / 525 Balance 209 / 209 500 / 500 -425 / -425 Intake: IV Fluids 534 / 534 1000 / 1000 D5% And 0.9% Nacl 1000 Ml 1,000 268 / 268 1000 / 1000 ML @ 75 mls/hr IVC .[id number] [facility] Rx#:[id number] Clinimix E 5%-15% SOLUTION 2, 266 / 266 000 ML @ 50 mls/hr IVC .Q24H [facility] with M.v.i. Adult 10 ml Rx# :[id number] Oral 200 / 200 400 / 400 100 / 100 Output: Urine 200 / 200 400 / 400 100 / 100 Stool 325 / 325 500 / 500 425 / 425 Other: Meal Dinner Breakfast Percent of Meal Consumed 0% 5% Stool Consistency liquid Stool Characteristics Pasty Stool Color Green Weight 53.4 kg Blood Glucose* 105 116 114 Patient Weight 10/24/17 23:59 Weight 53.4 kg - Labs 10/24/17 03:38 10/24/17 03:38 Diabetes panel 10/24/17 Range/Units 03:38 Sodium 131 L (136-145) mEq/L Potassium 3.9 (3.5-5.1) mEq/L Chloride 102 (98-107) mEq/L Carbon Dioxide 26 (23-29) mEq/L BUN 19 (8-23) mg/dL Creatinine 0.52 L (0.60-1.20) mg/dL Glucose 102 (70-105) mg/dL Calcium 7.7 L (8.6-10.3) mg/dL Calcium panel 10/24/17 Range/Units 03:38 Calcium 7.7 L (8.6-10.3) mg/dL Phosphorus 3.0 (2.7-4.5) mg/dL Pituitary panel 10/24/17 Range/Units 03:38 Sodium 131 L (136-145) mEq/L Potassium 3.9 (3.5-5.1) mEq/L Chloride 102 (98-107) mEq/L Carbon Dioxide 26 (23-29) mEq/L BUN 19 (8-23) mg/dL Creatinine 0.52 L (0.60-1.20) mg/dL Glucose 102 (70-105) mg/dL Calcium 7.7 L (8.6-10.3) mg/dL Adrenal panel 10/24/17 Range/Units 03:38 Sodium 131 L (136-145) mEq/L Potassium 3.9 (3.5-5.1) mEq/L Chloride 102 (98-107) mEq/L Carbon Dioxide 26 (23-29) mEq/L BUN 19 (8-23) mg/dL Creatinine 0.52 L (0.60-1.20) mg/dL Glucose 102 (70-105) mg/dL Calcium 7.7 L (8.6-10.3) mg/dL - Attending Attestation I have personally seen and examined the patient. I have reviewed pertinent labs , imaging, progress notes, including this one. I agree with the above assessment and plan and wish to include the following... Over the weekend, ileostomy output down to about 1.2L; patient continues to have poor PO intake. I suspect that the amount she eats is near her baseline. I have encouraged PO intake as well as activity. ileosotmy pink, viable, functioning; abdomen is soft, nondistended; cont tpn pt/ot megace calorie counts plan for discharge to rehab/SNF
[2017-10-24 09:03] LABS: % Iron Saturation 7 % (15-50); Iron 17 mcg/dL (50-170); Transferrin 175 mg/dL (203-362)
[2017-10-24 09:28] LABS: Folate 16.9 ng/mL (3.0-16.0)
[2017-10-24] MEDS: Megestrol Acetate 400 MG/10 ML UDC PO SCH (13:00)
[2017-10-24] MEDS: OXYCODONE Oral CONC 10 MG/0.5 ML ORAL.SYG SL PRN ×2 (13:01→21:12)
[2017-10-24] MEDS ORDERED: Clinimix E 5%-15% SOLUTION 2,000 ML with MVI, adult with vitamin K 10 ML, Magnesium S... IVC SCH (17:00)
[2017-10-24] MEDS: *HR* Promethazine 25 MG/ML VIAL IVP PRN (23:54)
[2017-10-25] MEDS: Insulin LISPRO 300 UNITS/3 ML VIAL SQ SCH ×6 (00:05→21:32)
[2017-10-25] MEDS: D5% in 0.9% NACL 1,000 ML IVC SCH (01:37)
[2017-10-25] MEDS: *HR* Heparin 5,000 UNIT/ML VIAL SQ SCH ×3 (05:52→20:35)
[2017-10-25] MEDS: *HR* Promethazine 25 MG/ML VIAL IVP PRN ×2 (05:52→11:55)
[2017-10-25 05:56] LABS: BUN/Creatinine Ratio 41 (6-26); Blood Urea Nitrogen 19 mg/dL (8-23); Carbon Dioxide 24 mEq/L (23-29); Chloride 99 mEq/L (98-107); Glucose 157 mg/dL (70-105); Magnesium 1.8 mg/dL (1.6-2.6); Osmolality,Calculated 270 (280-300); Phosphorous 3.1 mg/dL (2.7-4.5); Potassium 3.8 mEq/L (3.5-5.1); Sodium 127 mEq/L (136-145); eGFR For African Americans > 60 (> 60); eGFR For Non-African Americans > 60 (> 60)
[2017-10-25] MEDS: Megestrol Acetate 400 MG/10 ML UDC PO SCH (08:06)
[2017-10-25] MEDS: Ondansetron 4 MG/2 ML VIAL IVP PRN (08:06)
--- NOTE | 2017-10-25 09:16 | General Surgery Progress Note ---
Date of Encounter: 10/25/17 Time of Encounter: 09:13 - Assessment and Plan (1) Postoperative ileus Current Visit: Yes Status: Resolved tolerating clears; resolved at this point; cont with liquid diet; encourage PO intake; at least 2L per day; patient still with poor PO intake. She states she is eating/drinking as much as she can; pre- albumin < 8 cont with TPN; discussed with patient about placing a feeding tube, both advantages and disadvantages. 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 At present, i would not recommend taking down her ileostomy due to her nutrition being so poor...I' d be concerned that the repair would fail and she'd get another ileostomy. limit narcotics activity encourage; discussed with patient at length yet again about ambulation and activity; discussed that her time in rehabd and SNF will be prolonged if she does not take ownership of her care; patient was uninterested, but did express that she just wanted to go home PT/OT increase loperamide to 8mg QID daily wound changes 2mg lomotil replete electrolytes; hypokalemia likely from GI losses; will d/c when ileostomy output appropriate (2) Poor fluid intake Current Visit: Yes Status: Acute will tentatively plan for placement of a feeding tube this week; Subjective Patient reports: no new complaints, tolerating liquids well (poor PO intake; mild nausea this AM; still with high ileostomy output), afebrile Objective Vital Signs - Last 8 Hours Temp Pulse Resp BP Pulse Ox 10/25/17 08:00 94 10/25/17 06:51 98.5 F 83 15 148/54 94 10/25/17 04:19 98.5 F 88 16 154/57 98 Intake and Output 10/24/17 10/25/17 10/25/17 23:59 07:59 15:59 Intake Total 1000 / 1000 250 / 250 0 / 0 Output Total 900 / 900 1775 / 1775 350 / 350 Balance 100 / 100 -1525 / -1525 -350 / -350 Intake: IV Fluids 1000 / 1000 250 / 250 D5% And 0.9% Nacl 1000 Ml 1,000 1000 / 1000 ML @ 75 mls/hr IVC .[id number] [facility] Rx#:[id number] Intralipid 20% 250 ML @ 21 mls/ 250 / 250 hr IVPB DAILY@1700 [facility] Rx#: [id number] Oral 0 / 0 0 / 0 0 / 0 Output: Urine 400 / 400 1600 / 1600 350 / 350 Stool 500 / 500 150 / 150 Emesis 25 / 25 Other: Meal Breakfast Percent of Meal Consumed 0% Weight 53.433 kg Blood Glucose* 138 134 Patient Weight 10/25/17 23:59 Weight 53.433 kg - General physical appearance no distress - Respiratory normal expansion, normal respiratory effort - Cardiovascular Cardiovascular exam: Present: RRR - Abdomen Abdomen: Present: soft, non tender - Integumentary no rash - Neurologic CN 2-12 grossly intact - Musculoskeletal normal posture - Labs 10/24/17 03:38 10/25/17 04:55 Diabetes panel 10/25/17 Range/Units 04:55 Sodium 127 L (136-145) mEq/L Potassium 3.8 (3.5-5.1) mEq/L Chloride 99 (98-107) mEq/L Carbon Dioxide 24 (23-29) mEq/L BUN 19 (8-23) mg/dL Creatinine 0.46 L (0.60-1.20) mg/dL Glucose 157 H (70-105) mg/dL Calcium 8.0 L (8.6-10.3) mg/dL Calcium panel 10/25/17 Range/Units 04:55 Calcium 8.0 L (8.6-10.3) mg/dL Phosphorus 3.1 (2.7-4.5) mg/dL Pituitary panel 10/25/17 Range/Units 04:55 Sodium 127 L (136-145) mEq/L Potassium 3.8 (3.5-5.1) mEq/L Chloride 99 (98-107) mEq/L Carbon Dioxide 24 (23-29) mEq/L BUN 19 (8-23) mg/dL Creatinine 0.46 L (0.60-1.20) mg/dL Glucose 157 H (70-105) mg/dL Calcium 8.0 L (8.6-10.3) mg/dL Adrenal panel 10/25/17 Range/Units 04:55 Sodium 127 L (136-145) mEq/L Potassium 3.8 (3.5-5.1) mEq/L Chloride 99 (98-107) mEq/L Carbon Dioxide 24 (23-29) mEq/L BUN 19 (8-23) mg/dL Creatinine 0.46 L (0.60-1.20) mg/dL Glucose 157 H (70-105) mg/dL Calcium 8.0 L (8.6-10.3) mg/dL - VTE Documentation of Mechanical Device: Intermittent pneumatic compression device Consult Discharge Plan - Plan Additional Instructions: #1 may shower, no tub bath for 2 weeks #2 wash incisions with soap and water and pat dry daily #3 no lifting, pushing, pulling more than 15 pounds for the next 6 weeks #4 no driving until off narcotics for 24 hours and able to safely react in the car #5 may climb stairs Ileostomy care- empty bag when one third full and as needed. Change appliance every 5-7 days and as needed if leaking. Wound care(midline)- Cleanse with soap and water in the shower daily and pat dry, pack open area with Mesalt ribbon, cover with dry dressing and tape to secure with paper tape daily. Referrals: Rafita Frazier MD [Non-Partnered Physician] - 11/02/17 2:05 pm (surgery follow- up) Prescriptions: OxyCODONE/APAP 5/325 [Percocet 5/325 MG] 1 each PO Q6HR PRN 7 Days #28 tablet PRN Reason: Pain
[2017-10-25 16:57] LABS: Hematocrit 24.6 % (35.3-44.9); Hemoglobin 7.7 g/dL (11.5-15.4)
[2017-10-25] MEDS ORDERED: Clinimix E 5%-15% SOLUTION 2,000 ML with MVI, adult with vitamin K 10 ML, Magnesium S... IVC SCH (17:00)
[2017-10-25] MEDS: OXYCODONE Oral CONC 10 MG/0.5 ML ORAL.SYG SL PRN (20:35)
[2017-10-25 22:55] LABS: Alanine Aminotransferase 22 Units/L (7-52); Albumin/Globulin Ratio 0.7 (1.1-2.2); Alkaline Phosphatase 60 Units/L (34-104); Aspartate Amino Transferase 49 Units/L (13-39); BUN/Creatinine Ratio 35 (6-26); Bilirubin,Total 1.5 mg/dL (0.3-1.0); Blood Urea Nitrogen 18 mg/dL (8-23); Calcium 7.9 mg/dL (8.6-10.3); Carbon Dioxide 25 mEq/L (23-29); Chloride 104 mEq/L (98-107); Globulin 2.8 g/dL (2.4-3.5); Glucose 81 mg/dL (70-105); Osmolality,Calculated 277 (280-300); Potassium 3.8 mEq/L (3.5-5.1); Sodium 133 mEq/L (136-145); Total Protein 4.8 g/dL (6.4-8.9); eGFR For African Americans > 60 (> 60); eGFR For Non-African Americans > 60 (> 60)
[2017-10-25] MEDS ORDERED: 0.9 % Sodium Chloride 250 ML ONE (23:14)
[2017-10-26] MEDS: Insulin LISPRO 300 UNITS/3 ML VIAL SQ SCH ×7 (00:35→23:35)
[2017-10-26] MEDS: *HR* Heparin 5,000 UNIT/ML VIAL SQ SCH ×3 (05:21→20:49)
[2017-10-26] MEDS: D5% in 0.9% NACL 1,000 ML IVC SCH (05:21)
[2017-10-26] MEDS: *HR* Promethazine 25 MG/ML VIAL IVP PRN (05:21)
[2017-10-26] MEDS: Megestrol Acetate 400 MG/10 ML UDC PO SCH (08:12)
--- NOTE | 2017-10-26 09:16 | General Surgery Progress Note ---
<Hermann Reed - Last Filed: 10/26/17 09:14> Date of Encounter: 10/26/17 Time of Encounter: 07:15 - Assessment and Plan (1) Postoperative ileus Current Visit: Yes Status: Resolved Status post sigmoidectomy with diverging loop ileostomy. She was initially admitted with bilious vomiting. Patient still has poor PO intake. Has had abdominal pain variably that is not present today. CT obtained on 10/25/17 demonstrated distended GB with wall thickening, possibly pericholecystic fluid, and large luminal stone. LFTs, fractionated Bilirubin, and RUQ U/S ordered and pending. Also needed transfusion of 2u pRBCs with a See note from 10/25/17 for shared decision making between Dr. Frazier, patient, and family. - continue with liquid diet and encourage increased PO intake ideally 2 L or more - Continue TPN for now - Continue to limit narcotics - Continue daily dressing changes - Strictly monitor ileostomy output and oral intake - Continue loperamide 8 milligrams QID; 2 milligrams Lomotil - has been anemic; CBCs daily & transfuse if needed -- likely nutritional Fe- deficiency. - mildly hyponatremic and hypomagnesemic today; K+ normal - check electrolytes QAM; replete as needed - discharge pending stabilization of ileostomy output and proper PO intake/ output balance - continue PT/OT - labs and RUQ U/S pending (2) Anemia Current Visit: Yes Status: Acute as above; monitoring Qualifiers: Anemia type: other cause Other causes of anemia: other cause, not classified Qualified Code(s): D64.89 - Other specified anemias Subjective Narrative: Abd pain better. No nausea/vomiting this AM. No appetite. Objective Vital Signs - Last 8 Hours Temp Pulse Resp BP Pulse Ox 10/26/17 07:15 98.6 F 79 16 164/93 98 10/26/17 03:24 98.1 F 16 162/84 99 10/26/17 03:22 98 10/26/17 03:09 97.8 F 81 16 154/82 10/26/17 02:42 98.3 F 83 16 155/88 Intake and Output 10/25/17 10/26/17 10/26/17 23:59 07:59 15:59 Intake Total 0 / 0 1896 / 1896 Output Total 1500 / 1500 925 / 925 Balance -1500 / -1500 971 / 971 Intake: IV Fluids 1250 / 1250 D5% And 0.9% Nacl 1000 Ml 1,000 1000 / 1000 ML @ 75 mls/hr IVC .[id number] [facility] Rx#:[id number] Intralipid 20% 250 ML @ 21 mls/ 250 / 250 hr IVPB DAILY@1700 [facility] Rx#: [id number] Oral 0 / 0 20 / 20 Blood Product 626 / 626 Rbcs Leuko Poor As-1 Unit 325 / 325 [id number] Rbcs Leuko Poor As-1 Unit 301 / 301 [id number] Output: Urine 700 / 700 350 / 350 Stool 800 / 800 550 / 550 Emesis 25 / Other: Meal Keeping tray Stool Consistency liquid liquid Blood Glucose* 125 121 VITAL SIGNS: Reviewed. See [facility] GENERAL: restful. No acute distress, answers questions appropriately HEENT: Normocephalic, PER, oropharynx pink/moist CV: RRR RESPIRATORY: CTAB ABD: soft, BS infrequent, minimal tenderness, no rebound/guarding/rigidity, no peritoneal signs INCISION: no signs of infection Ileostomy: minimal liquid contents in ileostomy bag EXTREMITY: grossly normal motor function, no pedal edema, peripheral pulses 2+ b /l NEUROLOGIC EXAM: AOx3, obeys commands, no speech deficits. PSYCHIATRIC: normal mood and affect SKIN: no gross lesions, rashes, or skin changes - Labs 10/25/17 16:45 10/25/17 20:24 Diabetes panel 10/25/17 Range/Units 20:24 Sodium 133 L (136-145) mEq/L Potassium 3.8 (3.5-5.1) mEq/L Chloride 104 (98-107) mEq/L Carbon Dioxide 25 (23-29) mEq/L BUN 18 (8-23) mg/dL Creatinine 0.52 L (0.60-1.20) mg/dL Glucose 81 (70-105) mg/dL Calcium 7.9 L (8.6-10.3) mg/dL AST 49 H (13-39) Units/L ALT 22 (7-52) Units/L Alkaline Phosphatase 60 (34-104) Units/L Albumin 2.0 L (3.5-5.7) g/dL Calcium panel 10/25/17 Range/Units 20:24 Calcium 7.9 L (8.6-10.3) mg/dL Albumin 2.0 L (3.5-5.7) g/dL Pituitary panel 10/25/17 Range/Units 20:24 Sodium 133 L (136-145) mEq/L Potassium 3.8 (3.5-5.1) mEq/L Chloride 104 (98-107) mEq/L Carbon Dioxide 25 (23-29) mEq/L BUN 18 (8-23) mg/dL Creatinine 0.52 L (0.60-1.20) mg/dL Glucose 81 (70-105) mg/dL Calcium 7.9 L (8.6-10.3) mg/dL Adrenal panel 10/25/17 Range/Units 20:24 Sodium 133 L (136-145) mEq/L Potassium 3.8 (3.5-5.1) mEq/L Chloride 104 (98-107) mEq/L Carbon Dioxide 25 (23-29) mEq/L BUN 18 (8-23) mg/dL Creatinine 0.52 L (0.60-1.20) mg/dL Glucose 81 (70-105) mg/dL Calcium 7.9 L (8.6-10.3) mg/dL Total Bilirubin 1.5 H (0.3-1.0) mg/dL AST 49 H (13-39) Units/L ALT 22 (7-52) Units/L Alkaline Phosphatase 60 (34-104) Units/L Albumin 2.0 L (3.5-5.7) g/dL - VTE Documentation of Mechanical Device: Intermittent pneumatic compression device Consult Discharge Plan - Plan Additional Instructions: #1 may shower, no tub bath for 2 weeks #2 wash incisions with soap and water and pat dry daily #3 no lifting, pushing, pulling more than 15 pounds for the next 6 weeks #4 no driving until off narcotics for 24 hours and able to safely react in the car #5 may climb stairs Ileostomy care- empty bag when one third full and as needed. Change appliance every 5-7 days and as needed if leaking. Wound care(midline)- Cleanse with soap and water in the shower daily and pat dry, pack open area with Mesalt ribbon, cover with dry dressing and tape to secure with paper tape daily. Referrals: Rafita Frazier MD [Non-Partnered Physician] - 11/02/17 2:05 pm (surgery follow- up) Prescriptions: OxyCODONE/APAP 5/325 [Percocet 5/325 MG] 1 each PO Q6HR PRN 7 Days #28 tablet PRN Reason: Pain <Rafita Frazier - Last Filed: 10/26/17 15:19> Date of Encounter: 10/26/17 - Assessment and Plan (1) Postoperative ileus Current Visit: Yes Status: Resolved (2) Poor fluid intake Current Visit: Yes Status: Acute Objective Vital Signs - Last 8 Hours Temp Pulse Resp BP Pulse Ox 10/26/17 07:15 98.6 F 79 16 164/93 98 Intake and Output 10/25/17 10/26/17 10/26/17 23:59 07:59 15:59 Intake Total 0 / 0 1896 / 1896 Output Total 1500 / 1500 925 / 925 Balance -1500 / -1500 971 / 971 Intake: IV Fluids 1250 / 1250 D5% And 0.9% Nacl 1000 Ml 1,000 1000 / 1000 ML @ 75 mls/hr IVC .[id number] [facility] Rx#:[id number] Intralipid 20% 250 ML @ 21 mls/ 250 / 250 hr IVPB DAILY@1700 [facility] Rx#: [id number] Oral 0 / 0 20 / 20 Blood Product 626 / 626 Rbcs Leuko Poor As-1 Unit 325 / 325 [id number] Rbcs Leuko Poor As-1 Unit 301 / 301 [id number] Output: Urine 700 / 700 350 / 350 Stool 800 / 800 550 / 550 Emesis 25 / 25 Other: Meal Keeping tray Stool Consistency liquid liquid Blood Glucose* 125 121 109 - Labs 10/26/17 04:00 10/26/17 10:20 Diabetes panel 10/25/17 10/26/17 Range/Units 20:24 10:20 Sodium 133 L 131 L (136-145) mEq/L Potassium 3.8 3.7 (3.5-5.1) mEq/L Chloride 104 102 (98-107) mEq/L Carbon Dioxide 25 27 (23-29) mEq/L BUN 18 19 (8-23) mg/dL Creatinine 0.52 L 0.49 L (0.60-1.20) mg/dL Glucose 81 123 H (70-105) mg/dL Calcium 7.9 L 8.1 L (8.6-10.3) mg/dL AST 49 H 54 H (13-39) Units/L ALT 22 26 (7-52) Units/L Alkaline Phosphatase 60 67 (34-104) Units/L Albumin 2.0 L 2.3 L (3.5-5.7) g/dL Calcium panel 10/25/17 10/26/17 Range/Units 20:24 10:20 Calcium 7.9 L 8.1 L (8.6-10.3) mg/dL Phosphorus 3.3 (2.7-4.5) mg/dL Albumin 2.0 L 2.3 L (3.5-5.7) g/dL Pituitary panel 10/25/17 10/26/17 Range/Units 20:24 10:20 Sodium 133 L 131 L (136-145) mEq/L Potassium 3.8 3.7 (3.5-5.1) mEq/L Chloride 104 102 (98-107) mEq/L Carbon Dioxide 25 27 (23-29) mEq/L BUN 18 19 (8-23) mg/dL Creatinine 0.52 L 0.49 L (0.60-1.20) mg/dL Glucose 81 123 H (70-105) mg/dL Calcium 7.9 L 8.1 L (8.6-10.3) mg/dL Adrenal panel 10/25/17 10/26/17 Range/Units 20:24 10:20 Sodium 133 L 131 L (136-145) mEq/L Potassium 3.8 3.7 (3.5-5.1) mEq/L Chloride 104 102 (98-107) mEq/L Carbon Dioxide 25 27 (23-29) mEq/L BUN 18 19 (8-23) mg/dL Creatinine 0.52 L 0.49 L (0.60-1.20) mg/dL Glucose 81 123 H (70-105) mg/dL Calcium 7.9 L 8.1 L (8.6-10.3) mg/dL Total Bilirubin 1.5 H 2.3 H (0.3-1.0) mg/dL AST 49 H 54 H (13-39) Units/L ALT 22 26 (7-52) Units/L Alkaline Phosphatase 60 67 (34-104) Units/L Albumin 2.0 L 2.3 L (3.5-5.7) g/dL - Attending Attestation I have personally seen and examined the patient. I have reviewed pertinent labs , imaging, progress notes, including this one. I agree with the above assessment and plan and wish to include the following... Still with poor PO intake, but patient actively trying; ostomy output appropriate; gallbladder is distended, concern for cholecystitis; on exam she does report mild tenderness, but not at RUQ; she does report persistent nausea with meals; My concern that her gallbladder is causing her symptoms is heightened; will discuss with family concerning cholecystectomy. in the meantime, I will make the patient NPO;
[2017-10-26] MEDS: OXYCODONE Oral CONC 10 MG/0.5 ML ORAL.SYG SL PRN ×2 (10:16→20:00)
[2017-10-26 10:23] LABS: Lymphocytes % 19.1 %
[2017-10-26 10:25] LABS: Basophils % 0.3 %; Eosinophils # 0.1 K/mcL (0.0-0.6); Eosinophils % 1.3 %; Hematocrit 34.1 % (35.3-44.9); Hemoglobin 11.5 g/dL (11.5-15.4); Immature Granulocytes % 0.3 % (0-4); Immature Platelets 11.9 % (1.1-6.1); Lymphocytes # 1.2 K/mcL (0.6-4.6); Mean Corpuscular HGB Conc 33.7 g/dL (31.6-35.5); Mean Corpuscular Volume 91.9 fL (83.0-100.0); Mean Platelet Volume 13.1 fL (9.4-12.4); Monocytes # 0.8 K/mcL (0.0-1.3); Monocytes % 12.3 %; Neutrophils # 4.1 K/mcL (1.6-8.9); Red Blood Count 3.71 M/mcL (3.82-4.97); Red Cell Distribution Width 14.8 % (11.5-14.5); Segmented Neutrophils % 66.7 %
[2017-10-26 10:29] LABS: Platelet Count 47 K/mcL (140-400)
[2017-10-26 10:52] LABS: Alanine Aminotransferase 26 Units/L (7-52); Albumin 2.3 g/dL (3.5-5.7); Albumin/Globulin Ratio 0.7 (1.1-2.2); Alkaline Phosphatase 67 Units/L (34-104); Aspartate Amino Transferase 54 Units/L (13-39); BUN/Creatinine Ratio 39 (6-26); Bilirubin,Direct 1.1 mg/dL (0.0-0.2); Bilirubin,Indirect 1.2 mg/dL (0.0-1.2); Bilirubin,Total 2.3 mg/dL (0.3-1.0); Blood Urea Nitrogen 19 mg/dL (8-23); Calcium 8.1 mg/dL (8.6-10.3); Carbon Dioxide 27 mEq/L (23-29); Chloride 102 mEq/L (98-107); Globulin 3.2 g/dL (2.4-3.5); Glucose 123 mg/dL (70-105); Magnesium 1.9 mg/dL (1.6-2.6); Osmolality,Calculated 276 (280-300); Phosphorous 3.3 mg/dL (2.7-4.5); Potassium 3.7 mEq/L (3.5-5.1); Sodium 131 mEq/L (136-145); Total Protein 5.5 g/dL (6.4-8.9); eGFR For African Americans > 60 (> 60); eGFR For Non-African Americans > 60 (> 60)
[2017-10-26 11:12] LABS: Bilirubin,Direct 0.8 mg/dL (0.0-0.2)
[2017-10-26] MEDS ORDERED: Clinimix E 5%-15% SOLUTION 2,000 ML with MVI, adult with vitamin K 10 ML, Magnesium S... IVC SCH (17:00)
--- NOTE | 2017-10-27 01:18 | Anesthesia Evaluation PreOp ---
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 (No residual weakness per patient, walks independently, reports occasional right sided numbness), Other (Depression) Other Medical History: Hepatic (Hep B, HepC), Diabetes Type II, GERD, Other ( Poor appetite, high output illeostomy, malnutrition on TPN, Anemia, 2 PRBC 24 hours ago,) Anesthesia History: No Prior Anesthetic Complications, Past Anesthesia Alcohol Use: none Drug use: none Medications and Allergies Diltiazem CD (24hr) [Cardizem CD] 180 mg PO DAILY 06/27/17 [History] Ibuprofen [Motrin] 800 mg PO Q8HR PRN #42 tablet 10/06/17 [Rx] raNITIdine HCl [Ranitidine HCl] 300 mg PO DAILY 10/14/17 [History] Heparin 5,000 unit SQ Q8HCO vial 10/19/17 [Rx] OxyCODONE/APAP 5/325 [Percocet 5/325 MG] 1 each PO Q6HR PRN 7 Days #28 tablet [Rx] 3 Allergy/AdvReac Type Severity Reaction Status Date / Time Penicillins [PCN] Allergy Rash Verified 10/14/17 09:16 niacin AdvReac Flushing Verified 10/14/17 09:16 duracef Allergy See Uncoded 10/14/17 09:16 Comments - Meds/Allergy Pre-op Review Medications Reviewed: Yes Allergies Reviewed: Yes Anesthesia Results - Labs 10/26/17 04:00 10/26/17 10:20 - Imaging EKG: report reviewed (SINUS RHYTHM MARKED LEFT AXIS DEVIATION) Anesthesia Exam Vital Signs/O2 Sat/Glucose, Most Recent Temp Pulse Resp BP Pulse Ox 98.7 F 70 17 88/50 97 10/26/17 23:31 10/26/17 23:31 10/26/17 23:31 10/26/17 23:31 10/26/17 23:31 Blood Glucose* 115 Weight: 53 kg - BMI 22 NPO (# of Hours): > 1600 10/26 - HEENT Mallampati: II Teeth: Edentulous Oral Opening: Greater than 3 - [employer]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 Risks, benefits, and alternatives discussed. Patient wishes to proceed.
[2017-10-27] MEDS ORDERED: Clindamycin 600 MG/50 ML 600 MG/50 ML IV.SOLN IVPB ONE ×2 (02:28→03:00)
[2017-10-27] MEDS ORDERED: *HR* Propofol 200 MG/20 ML VIAL IVP ONE (02:38)
[2017-10-27] MEDS ORDERED: *HR* FentaNYL (PF) 100 MCG/2 ML VIAL ONE ×2 (02:38→04:13)
[2017-10-27] MEDS ORDERED: Ondansetron 4 MG/2 ML VIAL ONE (03:39)
[2017-10-27] MEDS ORDERED: *HR* PHENYLEPHRINE 1,000 MCG/10 ML SYRINGE IVP ONE (03:39)
[2017-10-27] MEDS ORDERED: Dexamethasone 4 MG/ML VIAL ONE (03:39)
[2017-10-27] MEDS ORDERED: Lidocaine -MPF 2% 2 ML VIAL ONE (03:39)
[2017-10-27] MEDS ORDERED: *HR* Rocuronium Bromide 50 MG/5 ML VIAL ONE (03:39)
[2017-10-27] MEDS ORDERED: MORPHINE SUL Oral CONC 10 MG/0.5 ML ORAL.SYG SL PRN (04:04)
[2017-10-27] MEDS ORDERED: Neostigmine Methylsulfate 3 MG/3 ML SYRINGE ONE (04:09)
[2017-10-27] MEDS: Insulin LISPRO 300 UNITS/3 ML VIAL SQ SCH ×5 (04:16→19:52)
--- NOTE | 2017-10-27 04:37 | Operative Note ---
Date of procedure: 10/27/17 Pre-op diagnosis: acute cholecystitis Post-op diagnosis: same Procedure: robotic cholecystectomy with intraoperative cholangiogram Implants: none Complications: none Anesthesia: GETA Local Anesthetics: Isovue 300 Intravenous (cc) Surgeon: Rafita Frazier Was there an accounting assistant present: No Social Work Coordinator Other: brianne macario Estimated blood loss (cc): 10 Specimen: gallbladder and contents Condition: stable Disposition: PACU Procedure in Detail: The patient was brought into the operating room suite and was placed in the supine position. Mechanical DVT prophylaxis was applied. A time-in was conducted. The patient underwent smooth induction of anesthesia. Preoperative antibiotics were given. The patient was prepped and draped in the usual fashion. A time-out was held identifying the correct patient, pathology, and procedure. Everyone was in agreement and we began the procedure. Incision to Dissection I started by creating a 12mm midabdominal incision. Via open Dung technique I did enter into the abdomen. I inserted the 12mm trocar followed by the 30 degree camera, ensured that I did not cause intraabdominal injury upon entry, and quickly identified the gallbladder. It was very edematous with adhesions to the surround transverse colon, pylous and duodenum. In addition the liver was very cirrhotic appearing. There was also what appeared to hemorrhagic ascites. I created a 5mm incisions one handbreadth to the left and right of the umbilical incision and an accounting assistant port along the R anterior axillary line. I then docked the robot in the usual fashion. Using laparoscopic graspers I managed to elevate the gallbladder above the liver. At the Console I grasp the edge of the gallbladder to retract laterally. Using tension and counter-tension Iysed the adhesions. Using the hook instrument as well as the grasper, I dissected out the cystic duct and the cystic artery. I excised the posterior tissue to visualize the liver. I was able to clearly visualize the critical view of safety. Critical view of Safety to Excison of the gallbladder I then clipped both structures using plastic clips, two on the stay side, one on the specimen side. Using robotic scissors, I cut between the clip on the specimen side and the first clip on the stay side. Then using tension and counter-tension, I used the electrocautery to excise the gallbladder off of the liver bed. Before complete excision, I evaluated the liver bed to ensure there 1.) there was no bleeding, 2. No excessive bile leakage, and 3.) to evaluate my clips. There was no bleeding, bile leakage, and the clips were all the way across both duct and artery. Removal of gallbladder to Closure After undocking the robot, I inserted the endocatch bag into the umbilical port. I placed the specimen into the bag and retrieved it through the umbilical port. i then irrgiated the liver bed and above the liver before suctioning both irrigation fluid and air. I removed the 5mm ports, turned off the insufllation, then removed the 12mm umbilical port. I then close the umbilical fascia a vicryl suture in a figure of 8 fashion. All incisions were closed with interrupted 4-0 monocryl and sealed with dermabond. The patient tolerated the procedure well and went back to PACU in stable condition.
--- NOTE | 2017-10-27 05:31 | Anesthesia Evaluation Post Op ---
Date of Encounter: 10/27/17 Time of Encounter: 05:30 Notes: 10/27/17 05:31 Patient's vital signs have been reviewed. Patient is stable postoperatively and has adequately recovered from anesthesia. Patient is determined to have stable airway patency and respiratory function including respiratory rate and oxygen saturation. Patient has a stable heart rate, blood pressure and adequate hydration. Patients mental status is acceptable. Patients temperature is appropriate. Pain and nausea are adequately controlled. - Discharge PostOp Status: Transfer Patient to floor
[2017-10-27] MEDS ORDERED: Dextrose Gel 15 GM/37.5 ML TUBE PO PRN ×2 (05:45)
[2017-10-27] MEDS ORDERED: Ondansetron 4 MG/2 ML VIAL IVP PRN (05:45)
[2017-10-27] MEDS ORDERED: Chloraseptic Spray 177 ML BOTTLE MM PRN (05:45)
[2017-10-27] MEDS ORDERED: *HR* LORazepam 2 MG/ML VIAL IVP PRN (05:45)
[2017-10-27] MEDS ORDERED: D10% in Water 500 ML IVC PRN (05:45)
[2017-10-27] MEDS ORDERED: Diphenoxylate/Atropine 1 TAB TABLET PO PRN (05:45)
[2017-10-27] MEDS ORDERED: D5% in Water 1,000 ML IVC PRN (05:45)
[2017-10-27] MEDS ORDERED: *HR* Promethazine 25 MG/ML VIAL IVP PRN (05:45)
[2017-10-27] MEDS ORDERED: Clinimix E 5%-15% SOLUTION 2,000 ML with MVI, adult with vitamin K 10 ML, Magnesium S... IVC SCH ×2 (05:45→17:00)
[2017-10-27] MEDS ORDERED: *HR* Dextrose 50 % in Water (Syg) 50 ML SYRINGE IVP PRN (05:45)
[2017-10-27] MEDS ORDERED: *HR* Enoxaparin 30 MG/0.3 ML SYRINGE SQ SCH (06:00)
[2017-10-27] MEDS: OXYCODONE Oral CONC 10 MG/0.5 ML ORAL.SYG SL PRN ×2 (06:12→19:45)
[2017-10-27 06:42] LABS: Basophils % 0.5 %
[2017-10-27 06:44] LABS: Eosinophils % 0.6 %; Hematocrit 34.1 % (35.3-44.9); Hemoglobin 11.5 g/dL (11.5-15.4); Immature Granulocytes % 0.5 % (0-4); Immature Platelets 8.7 % (1.1-6.1); Lymphocytes # 0.7 K/mcL (0.6-4.6); Lymphocytes % 10.3 %; Mean Corpuscular HGB Conc 33.7 g/dL (31.6-35.5); Mean Corpuscular Hemoglobin 31.5 pg (28.0-33.3); Mean Corpuscular Volume 93.4 fL (83.0-100.0); Mean Platelet Volume 12.5 fL (9.4-12.4); Monocytes # 0.5 K/mcL (0.0-1.3); Monocytes % 7.8 %; Neutrophils # 5.2 K/mcL (1.6-8.9); Red Blood Count 3.65 M/mcL (3.82-4.97); Segmented Neutrophils % 80.3 %
[2017-10-27 06:58] LABS: Albumin 2.3 g/dL (3.5-5.7); Albumin/Globulin Ratio 0.7 (1.1-2.2); Bilirubin,Indirect 1.1 mg/dL (0.0-1.2); Bilirubin,Total 2.1 mg/dL (0.3-1.0); Globulin 3.3 g/dL (2.4-3.5); Total Protein 5.6 g/dL (6.4-8.9)
[2017-10-27 07:00] LABS: BUN/Creatinine Ratio 37 (6-26); Blood Urea Nitrogen 22 mg/dL (8-23); Calcium 9.5 mg/dL (8.6-10.3); Carbon Dioxide 21 mEq/L (23-29); Chloride 102 mEq/L (98-107); Glucose 122 mg/dL (70-105); Magnesium 1.9 mg/dL (1.6-2.6); Osmolality,Calculated 269 (280-300); Phosphorous 4.4 mg/dL (2.7-4.5); Potassium 4.3 mEq/L (3.5-5.1); Sodium 127 mEq/L (136-145); eGFR For African Americans > 60 (> 60); eGFR For Non-African Americans > 60 (> 60)
[2017-10-27 07:10] LABS: Platelet Count 50 K/mcL (140-400); Platelet Estimate Decreased (Normal)
[2017-10-27] MEDS: Megestrol Acetate 400 MG/10 ML UDC PO SCH (08:07)
[2017-10-27] MEDS: Ketorolac 15 MG/ML VIAL IVP SCH ×3 (09:51→22:07)
[2017-10-27] MEDS ORDERED: Ketorolac 15 MG/ML VIAL IVP SCH (12:00)
[2017-10-28] MEDS: Insulin LISPRO 300 UNITS/3 ML VIAL SQ SCH ×5 (04:01→16:47)
[2017-10-28] MEDS: Ketorolac 15 MG/ML VIAL IVP SCH ×3 (04:03→17:02)
[2017-10-28 04:28] LABS: Nucleated Red Blood Cells 0.2 /100 WBC (0)
[2017-10-28 04:30] LABS: Hematocrit 29.2 % (35.3-44.9); Immature Granulocytes % 0.5 % (0-4); Immature Platelets 10.7 % (1.1-6.1); Lymphocytes % 8.6 %; Mean Corpuscular HGB Conc 34.2 g/dL (31.6-35.5); Mean Corpuscular Hemoglobin 31.5 pg (28.0-33.3); Mean Corpuscular Volume 92.1 fL (83.0-100.0); Monocytes % 11.8 %; Neutrophils # 6.9 K/mcL (1.6-8.9); Red Blood Count 3.17 M/mcL (3.82-4.97); Red Cell Distribution Width 14.4 % (11.5-14.5); Segmented Neutrophils % 79.1 %
[2017-10-28 04:45] LABS: BUN/Creatinine Ratio 49 (6-26); Blood Urea Nitrogen 35 mg/dL (8-23); Calcium 8.8 mg/dL (8.6-10.3); Carbon Dioxide 23 mEq/L (23-29); Chloride 102 mEq/L (98-107); Glucose 130 mg/dL (70-105); Magnesium 2.1 mg/dL (1.6-2.6); Osmolality,Calculated 278 (280-300); Phosphorous 4.4 mg/dL (2.7-4.5); Potassium 4.7 mEq/L (3.5-5.1); Sodium 129 mEq/L (136-145); eGFR For African Americans > 60 (> 60); eGFR For Non-African Americans > 60 (> 60)
[2017-10-28 04:53] LABS: Lymphocytes # 0.8 K/mcL (0.6-4.6); Platelet Count 53 K/mcL (140-400)
[2017-10-28] MEDS ORDERED: *HR* Enoxaparin 40 MG/0.4 ML SYRINGE SQ SCH (06:00)
[2017-10-28] MEDS: OXYCODONE Oral CONC 10 MG/0.5 ML ORAL.SYG SL PRN ×2 (08:17→15:02)
[2017-10-28] MEDS: Megestrol Acetate 400 MG/10 ML UDC PO SCH (08:25)
--- NOTE | 2017-10-28 11:12 | Physician Discharge Referral ---
Home Health/Hosp Referral Info Transfer to: Home Health Provider in Charge Post Discharge: PCP - Diagnosis (1) Postoperative ileus Priority: Primary Status: Resolved (2) Anemia Priority: Primary Status: Resolved - Respiratory Orders Smoking Cessation: Smoking cessation has been advised. For more information, call the [place] Tobacco Quit Line at 0-894-DFFV-NOW. - Dressing/Wound Care Site: Midline incision with packing. Ileostomy site. Daily dressing changes. - Diet/Nutrition Diet/Nutrition Orders: Regular - Activity Activity Orders: Walker - Services Needed Following services are medically necessary services: Nursing, Physical Therapy, Occupational Therapy Home Care Orders: Daily wound assessment daily dressing change ileostomy assessment daily document contents of ostomy bag - Transfer Medications Prescriptions: OxyCODONE/APAP 5/325 [Percocet 5/325 MG] 1 each PO Q6HR PRN 7 Days #28 tablet PRN Reason: Pain Home Medications: Diltiazem CD (24hr) [Cardizem CD] 180 mg PO DAILY 06/27/17 [History] Ibuprofen [Motrin] 800 mg PO Q8HR PRN #42 tablet 10/06/17 [Rx] raNITIdine HCl [Ranitidine HCl] 300 mg PO DAILY 10/14/17 [History] Heparin 5,000 unit SQ Q8HCO vial 10/19/17 [Rx] OxyCODONE/APAP 5/325 [Percocet 5/325 MG] 1 each PO Q6HR PRN 7 Days #28 tablet [Rx] Allergies/Adverse Reactions: 3 Allergy/AdvReac Type Severity Reaction Status Date / Time Penicillins [PCN] Allergy Rash Verified 10/14/17 09:16 niacin AdvReac Flushing Verified 10/14/17 09:16 duracef Allergy See Uncoded 10/14/17 09:16 Comments Certification: Further, I certify that my clinical findings support that this patient is homebound (i.e. absences from home require considerable and taxing effort and are for medical reasons or mormonism services or infrequently or short duration when for other reasons) because: Homebound Reason: Post-surgery restriction and or conditions limit ability to leave home Attestation: My signature below is to certify that this patient is under my care and that I, or nurse practitioner, or a physician's patient clerical assistant working with me, has a face-to -face encounter with this patient.
[2017-10-28 15:13] VITALS: BP 97/59
--- NOTE | 2017-10-28 18:18 | Discharge Summary ---
Date of Encounter: 10/28/17 Time of Encounter: 18:18 - Discharge Diagnosis (1) Postoperative ileus Priority: Primary Status: Resolved Comments: 62F with a history of multiple episodes of acute diverticulitis now POD #25 s/p HALS converted to open sigmoidectomy with diverting ileostomy complicated by fascial dehiscence on POD #10 s/p exploratory laparotomy with closure of fascial dehiscence. She did meet discharge criteria on POD #13 with subsequent readmission on POD #16 & #10 with post operative ileus likely from dehydraton and electrolyte abnormalities 2/2 high ileostomy output; Since this readmission 10/13 - 10/17 - NG tube was placed; once removed and patient began having ileostomy output, she was started on a diet with subsequent increase in ileosotmy output to grater than 1L. 10/18 / 10/25 - continued high ileotomy output between 1.2 - 2.8L per day; IVF fluids administered, electrolytes repleted; poor PO intake; greatest was 620cc/ 24hrs; patient also had persistent nausea; prealbumin: 7.8; TPN started 10/25 - 10/26: labs indicated that she is having symptoms related to her gallbladder; imaging confirmed acute cholecystitis; decision was made to take her to surgery for cholecystitis 10/27: robotic cholecystectomy with IOC; good PO intake after surgery 10/28: continued appropriate PO intake; reassessed by PT and found to no longer need rehab; TPN discontinued; okay for discharge today (2) Poor fluid intake Priority: Secondary Status: Acute Comments: see above (3) Cholecystitis, acute Priority: Secondary Status: Resolved Comments: see above General Surgery Exam Initial Vital Signs Temp Pulse Resp BP Pulse Ox 98.5 F 81 20 101/58 98 10/13/17 21:13 10/13/17 21:13 10/13/17 21:13 10/13/17 21:13 10/13/17 21:13 - General physical appearance well developed, no distress - Eyes normal ocular movement - Respiratory normal expansion, normal respiratory effort - Abdomen Abdomen general surgery: Present: soft, tender (appropriately tender to palpation) - Incision Incision: Present: clean and dry, intact - Integumentary Integumentary general surgery: Present: warm and dry - Neurologic Present: CN 2-12 grossly intact - Musculoskeletal Present: normal gait, normal posture - Psychiatric Psychiatric general surgery: Present: A&Ox3 - Hospital Course Hospital course: Ms. Jessica is a 62 year old female - Time Spent with Patient Total time spent providing and/or coordinating discharge services: - Discharge Medications Prescriptions: Ondansetron ODT [Zofran ODT] 4 mg SL Q6HR #15 tab.rapdis OxyCODONE/APAP 5/325 [Percocet 5/325 MG] 1 each PO Q6HR PRN 7 Days #28 tablet PRN Reason: Pain Commode - Three In One [THREE IN ONE COMMODE] 1 each .ROUTE PRN #1 each Diphenoxylate/Atropine [Lomotil 2.5 mg/0.025 mg] 1 tab PO BID PRN 30 Days #60 tablet PRN Reason: Diarrhea Ibuprofen 800 mg PO Q8H #42 tablet Loperamide [Imodium] 8 mg PO QID PRN 15 Days #240 capsule PRN Reason: Excessive ileostomy output Walker Wo Wheels [BRYAN WALKER] 1 each .ROUTE AD #1 each Home Medications: Diltiazem CD (24hr) [Cardizem CD] 180 mg PO DAILY 06/27/17 [History] Ibuprofen [Motrin] 800 mg PO Q8HR PRN #42 tablet 10/06/17 [Rx] raNITIdine HCl [Ranitidine HCl] 300 mg PO DAILY 10/14/17 [History] Heparin 5,000 unit SQ Q8HCO vial 10/19/17 [Rx] OxyCODONE/APAP 5/325 [Percocet 5/325 MG] 1 each PO Q6HR PRN 7 Days #28 tablet [Rx] Commode - Three In One [THREE IN ONE COMMODE] 1 each .ROUTE PRN #1 each [Rx] Diphenoxylate/Atropine [Lomotil 2.5 mg/0.025 mg] 1 tab PO BID PRN 30 Days #60 tablet 10/28/17 [Rx] Ibuprofen 800 mg PO Q8H #42 tablet 10/28/17 [Rx] Loperamide [Imodium] 8 mg PO QID PRN 15 Days #240 capsule 10/28/17 [Rx] Ondansetron ODT [Zofran ODT] 4 mg SL Q6HR #15 tab.rapdis 10/28/17 [Rx] Walker Wo Wheels [BRYAN WALKER] 1 each .ROUTE AD #1 each 10/28/17 [Rx] Allergies/Adverse Reactions: 3 Allergy/AdvReac Type Severity Reaction Status Date / Time Penicillins [PCN] Allergy Rash Verified 10/14/17 09:16 niacin AdvReac Flushing Verified 10/14/17 09:16 duracef Allergy See Uncoded 10/14/17 09:16 Comments Date of admission: 10/14/17 11:29 Primary care physician: Ghanshyam Taylor Consults: 10/27/17 15:37 PT [Consult to Physical Therapy] [CONS] Routine Comment: Evaluate, develop and implement POC Reason for Consult: post surgery Does patient have active BEDREST order?: No Is patient medically & hemodynamically stable?: Yes 10/27/17 15:38 OT [Consult to Occupational Therapy] [CONS] Routine Comment: Evaluate, develop and implement POC Reason for Consult: post surgery Does patient have active BEDREST order?: No Is patient medically & hemodynamically stable?: Yes Discharging clinician: Rafita Frazier Anticipated date of discharge: 10/28/17 Procedures and tests throughout hospitalization: 10/27: robotic cholecystectomy with intraoperative cholangiogram Labs on day of discharge: Labs from last 24 hours 10/28/17 10/28/17 10/28/17 12:08 07:26 04:00 WBC RBC Hgb Hct MCV MCH MCHC RDW Plt Count MPV Immature Gran % Seg Neutrophils % Lymphocytes % Monocytes % Eosinophils % Basophils % Neutrophils # Lymphocytes # Monocytes # Eosinophils # Basophils # Nucleated RBCs/100 WBC Immature Plt Fraction Sodium 129 L Potassium 4.7 Chloride 102 Carbon Dioxide 23 BUN 35 H Creatinine 0.72 Est GFR ( Amer) > 60 Est GFR (Non-Af Amer) > 60 BUN/Creatinine Ratio 49 H Glucose 130 H POC Glucose 147 H 148 H Calculated Osmolality 278 L Calcium 8.8 Phosphorus 4.4 Magnesium 2.1 10/28/17 10/28/17 10/27/17 04:00 03:36 23:49 WBC 8.7 RBC 3.17 L Hgb 10.0 L D Hct 29.2 L MCV 92.1 MCH 31.5 MCHC 34.2 RDW 14.4 Plt Count 53 L MPV 13.0 H Immature Gran % 0.5 Seg Neutrophils % 79.1 Lymphocytes % 8.6 Monocytes % 11.8 Eosinophils % 0.0 Basophils % 0.0 Neutrophils # 6.9 Lymphocytes # 0.8 Monocytes # 1.0 Eosinophils # 0.0 Basophils # 0.0 Nucleated RBCs/100 WBC 0.2 H Immature Plt Fraction 10.7 H Sodium Potassium Chloride Carbon Dioxide BUN Creatinine Est GFR ( Amer) Est GFR (Non-Af Amer) BUN/Creatinine Ratio Glucose POC Glucose 129 H 154 H Calculated Osmolality Calcium Phosphorus Magnesium 10/27/17 10/27/17 10/27/17 19:50 16:12 11:36 WBC RBC Hgb Hct MCV MCH MCHC RDW Plt Count MPV Immature Gran % Seg Neutrophils % Lymphocytes % Monocytes % Eosinophils % Basophils % Neutrophils # Lymphocytes # Monocytes # Eosinophils # Basophils # Nucleated RBCs/100 WBC Immature Plt Fraction Sodium Potassium Chloride Carbon Dioxide BUN Creatinine Est GFR ( Amer) Est GFR (Non-Af Amer) BUN/Creatinine Ratio Glucose POC Glucose 156 H 159 H 172 H Calculated Osmolality Calcium Phosphorus Magnesium - Impressions ITS Impressions Chest/Abdomen X-ray 10/22/17 13:51 IMPRESSION: 1. No acute findings in the chest or abdomen. 2. Right lower quadrant ostomy is noted. 3. Calcific density in the right upper quadrant likely correlates to gallstone seen on earlier CT. D/ / 10/22/2017 14:35:46 Davina Marie MD / yuli Interpreting Provider: Davina Marie MD Abdomen/Pelvis CT 10/25/17 18:30 IMPRESSION: 1. Findings of cirrhosis. Small to moderate ascites. 2. Postsurgical changes in the anterior abdominal wall. No obvious abscess formation. Correlate with exam for any signs of infection. 3. Cholelithiasis. Gallbladder is distended. This could be due to prolonged fasting state. This can also be seen with acute cholecystitis. Correlate with exam. Further evaluation is needed. 4. Transverse colonic wall thickening is likely secondary edema. D/ / Gurpreet Grajeda MD / Gurpreet Grajeda MD Interpreting Provider: Gurpreet Grajeda MD Gallbladder Ultrasound 10/26/17 13:00 IMPRESSION: 1. Cholelithiasis, gallbladder distention and gallbladder wall thickening. Consider acute cholecystitis. 2. Hepatic cirrhosis. Perihepatic ascites. D/ / 10/26/2017 14:55:00 Alfred James MD / blaine Interpreting Provider: Alfred James MD - Patient Status Disposition: Home Health Service Condition: Good Overall status at discharge: patient is progressing back to baseline - Discharge Instructions Instructions: Ileostomy Care (DC), Laparoscopic Cholecystectomy (DC) Follow Up With: Rafita Frazier MD [Non-Partnered Physician] - 11/16/17 2:05 pm (surgery follow- up) Forms: ED Satisfaction Letter, Work/School Release Additional Instructions: Please review all discharge educational handouts. Please attend scheduled follow-up appointments; appointment dates and times will be provided for you. You are prescribed medication for pain, nausea, and constipation to be used if/ as needed; take as written. Avoid driving if your pain requires that you take opioid analgesics such as oxycodone. Call Dr. Frazier's office if you have fever/chills/sweats/body aches, nausea, vomiting, constipation not relieved with meds you have been prescribed, significant abdominal pain after eating, blood in your stools or blackened stools, or signs of infection at your incision sites (includes increasing redness, increasing warmth, swelling, or pus). Avoid heavy lifting over 15lbs for 6 weeks Ileostomy care- empty bag when one third full and as needed. Change appliance every 5-7 days and as needed if leaking. Wound Care: shower with antibacterial soap; gently wash or allow water to passively run over surgical sites, avoid firm scrubbing of incisional site. May leave incisions open to air or cover with a dry dressing for comfort. Tape to secure. Reinforce or change outer dressing as needed. KARLO drain: remove drain sponge. Shower/wash with antibacterial soap. Replace drain sponge. Cover with a dry dressing. Tape to secure. Do not let the KARLO drain dangle from your body. Secure the ball to clothing with a safety pin or suspend from a lanyard when showering. Call your PCP for other concerns if any arise. - Diet and Activity Activity: as per physical therapy, increase activity as tolerated Diet: advance to your usual diet
== END 2017-10-28 19:53 | disposition home health service (06) | DRG 951 ==
LOC: EMEROO 21:02 → 3ANU 21:02
PROVIDERS: ADMIT Nurse Practitioner Family; ATTEND Surgery

== ENCOUNTER 2017-11-09 14:30 | Inpatient (IN) ==
[2017-11-09] MEDS ORDERED: Isovue-370 500 ML INFUS..BTL IV ONE (15:47)
--- NOTE | 2017-11-09 15:58 | Emergency Department Note ---
Disposition Clinical Impression: Acute kidney injury, Hyperkalemia GI bleed Qualifiers: GI bleed type/associated pathology: unspecified gastrointestinal hemorrhage type Qualified Code(s): K92.2 - Gastrointestinal hemorrhage, unspecified Disposition: Admitted As Inpatient Condition: Good Referrals: Ghanshyam Taylor [Primary Care Provider] - Forms: ED Satisfaction Letter, Work/School Release General Adult HPI - General Chief complaint: ED General Medical Stated complaint: "bleeding from bag" Time Seen by Provider: 11/09/17 15:26 Source: patient, family Limitations: no limitations - History of Present Illness HPI Narrative: Patient is a 62 year old female who presented to [facility] ED on 11/09/17 with the chief complaint of bleeding from her colostomy stump. 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 She reports that in the last week, she has noticed scant blood in her colostomy bag. This morning, however, she noticed a very large amount in her bag. She reports nausea, fatigue, and minor abdominal pain in the RLQ and LLQ. Denies having any other symptoms. No further complaints at this time. Pt Subjective Complaint: Blood in colostomy bag Onset (ago): hour(s) Location: head Pain Scale: 8 - Related Data Home Medications Medication Instructions Recorded Confirmed Diltiazem CD (24hr) [Cardizem CD] 180 mg PO DAILY 06/27/17 11/09/17 Famotidine [Pepcid] 40 mg PO DAILY 11/09/17 11/09/17 Previous Rx's Medication Instructions Recorded Ibuprofen [Motrin] 800 mg PO Q8HR PRN #42 tablet 10/06/17 OxyCODONE/APAP 5/325 [Percocet 1 each PO Q6HR PRN 7 Days #28 10/19/17 5/325 MG] tablet Diphenoxylate/Atropine [Lomotil 1 tab PO BID PRN 30 Days #60 tablet 10/28/17 2.5 mg/0.025 mg] Loperamide [Imodium] 8 mg PO QID PRN 15 Days #240 10/28/17 capsule Ondansetron ODT [Zofran ODT] 4 mg SL Q6HR #15 tab.rapdis 10/28/17 Allergies Allergy/AdvReac Type Severity Reaction Status Date / Time Penicillins [PCN] Allergy Rash Verified 11/09/17 15:30 niacin AdvReac Flushing Verified 11/09/17 15:30 duracef Allergy See Uncoded 11/09/17 15:30 Comments All systems ED: reviewed and negative except as stated. Constitutional: Reports: as per HPI. Denies: fever, chills, weakness, weight change Eyes: Reports: as per HPI. Denies: eye pain, eye discharge, vision change ENT ED: Reports: as per HPI. Denies: ear pain, throat pain Cardiovascular: Reports: as per HPI. Denies: chest pain, palpitations, dyspnea on exertion, syncope Respiratory: Reports: as per HPI. Denies: cough, dyspnea, wheezes Gastrointestinal: Reports: as per HPI, abdominal pain, nausea, other (bleeding from colostomy stump). Denies: vomiting, diarrhea, constipation Neurological: Reports: as per HPI, weakness. Denies: headache Psychiatric: Reports: as per HPI. Denies: anxiety, depression Endocrine: Reports: as per HPI, fatigue Past Medical History - Past Medical History Attestation: Yes The following information was validated with the patient. Source: patient Medical history: Reports: COPD, CVA, GERD, hepatitis, hyperlipidemia, hypertension, other Surgical history: Reports: colostomy, hysterectomy Psychiatric history: Reports: depression - Social History Smoking Status: Former smoker Smokeless Tobacco Status: No Alcohol use: Reports: none Drug use: Reports: none Physical Exam - General Limitations: no limitations General appearance: alert - Head Head exam: atraumatic, normocephalic - Eye Eye exam: Present: normal appearance, PERRL, EOMI - ENT ENT exam: normal exam, normal oropharynx - Neck Neck exam: Present: normal inspection, full ROM - Chest Chest inspection: Present: normal inspection, symmetric chest wall rise - Respiratory Respiratory exam: Present: normal lung sounds bilaterally. Absent: respiratory distress - Cardiovascular Cardiovascular exam: Present: regular rate, normal rhythm, +S1, +S2. Absent: bradycardia, normal heart sounds, systolic murmur - Abdominal Exam Abdominal exam: Present: soft, tenderness Abdominal tenderness: Present: RLQ, LLQ - Neurological Exam Neurological exam: Present: alert, oriented X3 - Psychiatric Psychiatric exam: Present: normal affect, normal mood - Skin Skin exam: Present: warm, dry, intact Course Course Narrative: Patient is a 62 year old female who presents with bleeding from her colostomy bag. She is s/p partial colectomy on september 23. We will obtaim CT angiogram of abdomen and pelvis, as well as CBC, CMP, PT/INR, lactate. We will discuss with surgery. - Reevaluation(s) Reevaluation #1: Patient's labs demonstrate acute renal failure with a creatinine of 9.05. Previous creatinine was WNL. She denies any prior history of renal disease. Potassium is elevated at 6.4. Will administer 10U insulin, 1 amp of bicarbonate , and calcium gluconate. Will contact nephrology. CT scan of abdomen has been changed to non-contrast. Reevaluation #2: CT scan demonstrated the follwoing: Nonspecific tubular density extending from the skin surface to the anterior abdominal wall, just above the ileostomy site. Retroperitoneal ultasound did not demonstrate any obstruction. Spoke with surgery; they have agreed to see the patient after she is admitted. Patient will be admitted to medicine service. Reevaluation #3: Repeat potassium is 5.4. Patient will be admitted to hospitalist service. Vital Signs Temperature 97.7 F 11/09/17 14:32 Pulse Rate 108 11/09/17 14:32 Respiratory Rate 14 11/09/17 14:32 Blood Pressure 85/57 11/09/17 14:32 O2 Sat by Pulse Oximetry 98 11/09/17 14:32 Temperature 97.7 F 11/09/17 15:34 Pulse Rate 84 11/09/17 19:02 Respiratory Rate 20 11/09/17 19:02 Blood Pressure 92/58 11/09/17 19:02 O2 Sat by Pulse Oximetry 97 11/09/17 19:02 Oxygen Delivery Oxygen Delivery Room Air Medical Decision Making - Medical Records Medical records reviewed: Yes I reviewed the patient's medical records. - Lab Data Lab results reviewed: Yes I reviewed the patient's lab results. Result diagrams: 11/09/17 16:13 11/09/17 19:33 Lab Results 11/09/17 11/09/17 11/09/17 Range/Units 16:13 16:13 16:13 WBC 15.5 H (4.3-11.1) K/mcL RBC 4.70 (3.82-4.97) M/mcL Hgb 14.3 (11.5-15.4) g/dL Hct 40.7 (35.3-44.9) % MCV 86.6 (83.0-100.0) fL MCH 30.4 (28.0-33.3) pg MCHC 35.1 (31.6-35.5) g/dL RDW 14.3 (11.5-14.5) % Plt Count 130 L (140-400) K/mcL MPV 13.0 H (9.4-12.4) fL Immature Gran % 0.4 (0-4) % Seg Neutrophils % 65.2 % Lymphocytes % 19.9 % Monocytes % 13.4 % Eosinophils % 0.1 % Basophils % 1.0 % Neutrophils # 10.1 H (1.6-8.9) K/mcL Lymphocytes # 3.1 (0.6-4.6) K/mcL Monocytes # 2.1 H (0.0-1.3) K/mcL Eosinophils # 0.0 (0.0-0.6) K/mcL Basophils # 0.2 (0.0-0.2) K/mcL PT 14.2 H (9.4-12.1) Seconds INR 1.3 Sodium (136-145) mEq/L Potassium (3.5-5.1) mEq/L Chloride (98-107) mEq/L Carbon Dioxide (23-29) mEq/L BUN (8-23) mg/dL Creatinine (0.60-1.20) mg/dL Est GFR ( Amer) (> 60) Est GFR (Non-Af Amer) (> 60) BUN/Creatinine Ratio (6-26) Glucose (70-105) mg/dL Calculated Osmolality (280-300) Lactic Acid (0.5-2.2) mmol/L Calcium (8.6-10.3) mg/dL Blood Type A POSITIVE Antibody Screen NEGATIVE 11/09/17 11/09/17 11/09/17 Range/Units 16:13 16:13 19:33 WBC (4.3-11.1) K/mcL RBC (3.82-4.97) M/mcL Hgb (11.5-15.4) g/dL Hct (35.3-44.9) % MCV (83.0-100.0) fL MCH (28.0-33.3) pg MCHC (31.6-35.5) g/dL RDW (11.5-14.5) % Plt Count (140-400) K/mcL MPV (9.4-12.4) fL Immature Gran % (0-4) % Seg Neutrophils % % Lymphocytes % % Monocytes % % Eosinophils % % Basophils % % Neutrophils # (1.6-8.9) K/mcL Lymphocytes # (0.6-4.6) K/mcL Monocytes # (0.0-1.3) K/mcL Eosinophils # (0.0-0.6) K/mcL Basophils # (0.0-0.2) K/mcL PT (9.4-12.1) Seconds INR Sodium 120 L* (136-145) mEq/L Potassium 6.4 H 5.4 H (3.5-5.1) mEq/L Chloride 85 L (98-107) mEq/L Carbon Dioxide 14 L (23-29) mEq/L BUN 119 H (8-23) mg/dL Creatinine 9.05 H (0.60-1.20) mg/dL Est GFR ( Amer) 5 L (> 60) Est GFR (Non-Af Amer) 4 L (> 60) BUN/Creatinine Ratio 13 (6-26) Glucose 118 H (70-105) mg/dL Calculated Osmolality 289 (280-300) Lactic Acid 1.7 (0.5-2.2) mmol/L Calcium 10.1 (8.6-10.3) mg/dL Blood Type Antibody Screen - Radiology Data Radiology results reviewed: Yes I reviewed the patient's radiology results. Abdomen/Pelvis CT 11/09/17 17:05 IMPRESSION: No acute intra-abdominal or intrapelvic abnormality detected. Nonspecific tubular density extending from the skin surface to the anterior abdominal wall, just above the ileostomy site. Rule out fistula if clinically warranted. D/ / Jelani Schulz MD / Jelani Schulz MD Interpreting Provider: Jelani Schulz MD Retroperitoneum Ultrasound 11/09/17 17:47 IMPRESSION: No hydronephrosis nor shadowing renal pelvic stones. Increased echogenicity of the renal parenchyma, nonspecific finding suggesting medical renal disease. D/ / Justyna Rios Cha, MD / Justyna Rios Cha, MD Interpreting Provider: Justyna Rios Cha, MD - EKG Data EKG #1 EKG results narrative: EKG demonstrates the following: NSR, HR 81, NH interval 154, QRS duration 82. Possible right ventricular conduction delay. Left anterior fascicular block. EKG shows normal: sinus rhythm Rate: normal Rhythm: NSR
[2017-11-09] MEDS ORDERED: Pantoprazole 40 MG VIAL IVP ONE (15:59)
--- NOTE | 2017-11-09 16:02 | Emergency Department Note ---
Disposition Clinical Impression: Acute kidney injury, Hyperkalemia GI bleed Qualifiers: GI bleed type/associated pathology: unspecified gastrointestinal hemorrhage type Qualified Code(s): K92.2 - Gastrointestinal hemorrhage, unspecified Disposition: Admitted As Inpatient Condition: Good Referrals: Ghanshyam Taylor [Primary Care Provider] - Forms: ED Satisfaction Letter, Work/School Release Time of Disposition: 20:26 General Adult HPI - General Chief complaint: ED General Medical Stated complaint: "bleeding from bag" Time Seen by Provider: 11/09/17 15:26 Source: patient, family Limitations: no limitations - History of Present Illness Location: head Pain Scale: 8 - Related Data Home Medications Medication Instructions Recorded Confirmed Diltiazem CD (24hr) [Cardizem CD] 180 mg PO DAILY 06/27/17 11/09/17 Famotidine [Pepcid] 40 mg PO DAILY 11/09/17 11/09/17 Previous Rx's Medication Instructions Recorded Ibuprofen [Motrin] 800 mg PO Q8HR PRN #42 tablet 10/06/17 OxyCODONE/APAP 5/325 [Percocet 1 each PO Q6HR PRN 7 Days #28 10/19/17 5/325 MG] tablet Diphenoxylate/Atropine [Lomotil 1 tab PO BID PRN 30 Days #60 tablet 10/28/17 2.5 mg/0.025 mg] Loperamide [Imodium] 8 mg PO QID PRN 15 Days #240 10/28/17 capsule Ondansetron ODT [Zofran ODT] 4 mg SL Q6HR #15 tab.rapdis 10/28/17 Allergies Allergy/AdvReac Type Severity Reaction Status Date / Time Penicillins [PCN] Allergy Rash Verified 11/09/17 15:30 niacin AdvReac Flushing Verified 11/09/17 15:30 duracef Allergy See Uncoded 11/09/17 15:30 Comments Constitutional: Reports: as per HPI. Denies: fever, chills, weakness, weight change Eyes: Reports: as per HPI. Denies: eye pain, eye discharge, vision change ENT ED: Reports: as per HPI. Denies: ear pain, throat pain Cardiovascular: Reports: as per HPI. Denies: chest pain, palpitations, dyspnea on exertion, syncope Respiratory: Reports: as per HPI. Denies: cough, dyspnea, wheezes Gastrointestinal: Reports: as per HPI, abdominal pain, nausea, other (bleeding from colostomy stump). Denies: vomiting, diarrhea, constipation Neurological: Reports: as per HPI, weakness. Denies: headache Psychiatric: Reports: as per HPI. Denies: anxiety, depression Endocrine: Reports: as per HPI, fatigue Past Medical History - Past Medical History Medical history: Reports: COPD, CVA, GERD, hepatitis, hyperlipidemia, hypertension, other Surgical history: Reports: colostomy, hysterectomy Psychiatric history: Reports: depression - Social History Smoking Status: Former smoker Smokeless Tobacco Status: No Alcohol use: Reports: none Drug use: Reports: none Physical Exam - General Limitations: no limitations General appearance: alert Course Vital Signs Temperature 97.7 F 11/09/17 14:32 Pulse Rate 108 11/09/17 14:32 Respiratory Rate 14 11/09/17 14:32 Blood Pressure 85/57 11/09/17 14:32 O2 Sat by Pulse Oximetry 98 11/09/17 14:32 Temperature 97.7 F 11/09/17 15:34 Pulse Rate 84 11/09/17 19:02 Respiratory Rate 20 11/09/17 19:02 Blood Pressure 92/58 11/09/17 19:02 O2 Sat by Pulse Oximetry 97 11/09/17 19:02 Oxygen Delivery Oxygen Delivery Room Air Medical Decision Making - Lab Data Result diagrams: 11/09/17 16:13 11/09/17 19:33 Lab Results 11/09/17 11/09/17 11/09/17 Range/Units 16:13 16:13 16:13 WBC 15.5 H (4.3-11.1) K/mcL RBC 4.70 (3.82-4.97) M/mcL Hgb 14.3 (11.5-15.4) g/dL Hct 40.7 (35.3-44.9) % MCV 86.6 (83.0-100.0) fL MCH 30.4 (28.0-33.3) pg MCHC 35.1 (31.6-35.5) g/dL RDW 14.3 (11.5-14.5) % Plt Count 130 L (140-400) K/mcL MPV 13.0 H (9.4-12.4) fL Immature Gran % 0.4 (0-4) % Seg Neutrophils % 65.2 % Lymphocytes % 19.9 % Monocytes % 13.4 % Eosinophils % 0.1 % Basophils % 1.0 % Neutrophils # 10.1 H (1.6-8.9) K/mcL Lymphocytes # 3.1 (0.6-4.6) K/mcL Monocytes # 2.1 H (0.0-1.3) K/mcL Eosinophils # 0.0 (0.0-0.6) K/mcL Basophils # 0.2 (0.0-0.2) K/mcL PT 14.2 H (9.4-12.1) Seconds INR 1.3 Sodium (136-145) mEq/L Potassium (3.5-5.1) mEq/L Chloride (98-107) mEq/L Carbon Dioxide (23-29) mEq/L BUN (8-23) mg/dL Creatinine (0.60-1.20) mg/dL Est GFR ( Amer) (> 60) Est GFR (Non-Af Amer) (> 60) BUN/Creatinine Ratio (6-26) Glucose (70-105) mg/dL Calculated Osmolality (280-300) Lactic Acid (0.5-2.2) mmol/L Calcium (8.6-10.3) mg/dL Blood Type A POSITIVE Antibody Screen NEGATIVE 11/09/17 11/09/17 11/09/17 Range/Units 16:13 16:13 19:33 WBC (4.3-11.1) K/mcL RBC (3.82-4.97) M/mcL Hgb (11.5-15.4) g/dL Hct (35.3-44.9) % MCV (83.0-100.0) fL MCH (28.0-33.3) pg MCHC (31.6-35.5) g/dL RDW (11.5-14.5) % Plt Count (140-400) K/mcL MPV (9.4-12.4) fL Immature Gran % (0-4) % Seg Neutrophils % % Lymphocytes % % Monocytes % % Eosinophils % % Basophils % % Neutrophils # (1.6-8.9) K/mcL Lymphocytes # (0.6-4.6) K/mcL Monocytes # (0.0-1.3) K/mcL Eosinophils # (0.0-0.6) K/mcL Basophils # (0.0-0.2) K/mcL PT (9.4-12.1) Seconds INR Sodium 120 L* (136-145) mEq/L Potassium 6.4 H 5.4 H (3.5-5.1) mEq/L Chloride 85 L (98-107) mEq/L Carbon Dioxide 14 L (23-29) mEq/L BUN 119 H (8-23) mg/dL Creatinine 9.05 H (0.60-1.20) mg/dL Est GFR ( Amer) 5 L (> 60) Est GFR (Non-Af Amer) 4 L (> 60) BUN/Creatinine Ratio 13 (6-26) Glucose 118 H (70-105) mg/dL Calculated Osmolality 289 (280-300) Lactic Acid 1.7 (0.5-2.2) mmol/L Calcium 10.1 (8.6-10.3) mg/dL Blood Type Antibody Screen Critical Care Time Critical Care Time: Yes Total Critical Care Time: 40 Attestation: Critical care performed: Time is exclusive of separately billable procedures. Time includes: direct patient care, patient reassessment, coordination of patient care, interpretation of data (laboratory data, radiology data, and respiratory data), review of patient's medical records, medical consultation and documentation of patient care. Procedures included in critical care time: Procedures excluded from critical care time: Attestation Statement - Attestation Attestation: I examined this patient and my medical decision-making was reviewed with the Resident Physician. I agree with the documented findings, disposition and treatment plan as described except to the extent set forth below. Patient presents to the ED with a chief complaint of bleeding into her colostomy bag. Onset a couple of days ago but worsened today. She feels tired and lethargic. 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 She having pain in her lower abdomen as well. On examination she is in no acute distress sitting up in bed. She does have lower abdominal tenderness to palpation. Colostomy bag has some bright red streaks mixed with stool. Plan. Basic labs. CTA. We will discuss with surgery. Pt with JACQUIE and hyperkalemia. Cocktail ordered. CT changed to non-con. Nephrology consulted. Repeat potassium 5.4. Admitted to medicine. Surgery is in consult as well. Abdomen/Pelvis CT 11/09/17 17:05 IMPRESSION: No acute intra-abdominal or intrapelvic abnormality detected. Nonspecific tubular density extending from the skin surface to the anterior abdominal wall, just above the ileostomy site. Rule out fistula if clinically warranted. D/ / Jelani Schulz MD / Jelani Schulz MD Interpreting Provider: Jelani Schulz MD Retroperitoneum Ultrasound 11/09/17 17:47 IMPRESSION: No hydronephrosis nor shadowing renal pelvic stones. Increased echogenicity of the renal parenchyma, nonspecific finding suggesting medical renal disease. D/ / Justyna Rios Cha, MD / Justyna Rios Cha, MD Interpreting Provider: Justyna Rios Cha, MD
[2017-11-09] MEDS ORDERED: 0.9 % Sodium Chloride 1,000 ML IVC ONE ×2 (16:16→17:07)
[2017-11-09 16:29] LABS: Basophils # 0.2 K/mcL (0.0-0.2); Eosinophils % 0.1 %; Hematocrit 40.7 % (35.3-44.9); Hemoglobin 14.3 g/dL (11.5-15.4); Immature Granulocytes % 0.4 % (0-4); Lymphocytes # 3.1 K/mcL (0.6-4.6); Lymphocytes % 19.9 %; Mean Corpuscular HGB Conc 35.1 g/dL (31.6-35.5); Mean Corpuscular Hemoglobin 30.4 pg (28.0-33.3); Mean Corpuscular Volume 86.6 fL (83.0-100.0); Monocytes # 2.1 K/mcL (0.0-1.3); Monocytes % 13.4 %; Neutrophils # 10.1 K/mcL (1.6-8.9); Platelet Count 130 K/mcL (140-400); Red Cell Distribution Width 14.3 % (11.5-14.5); Segmented Neutrophils % 65.2 %
[2017-11-09 16:34] LABS: INR 1.3; Prothrombin Time 14.2 Seconds (9.4-12.1)
[2017-11-09 16:50] LABS: Calcium 10.1 mg/dL (8.6-10.3); Potassium 6.4 mEq/L (3.5-5.1)
[2017-11-09] MEDS ORDERED: Insulin Human Regular 10 UNIT in 0.9 % Sodium Chloride 10 ML IV ONE (17:02)
[2017-11-09] MEDS ORDERED: Sodium Bicarbonate 50 MEQ/50 ML VIAL IVP ONE (17:04)
[2017-11-09] MEDS ORDERED: Sodium Bicarbonate 50 MEQ in 0.45 % Sodium Chloride 1,000 ML IVC SCH (20:15)
--- NOTE | 2017-11-09 20:30 | Internal Med History&Physical ---
<Hai Malone - Last Filed: 11/09/17 21:43> Date of Encounter: 11/09/17 Time of Encounter: 20:29 Internal Medicine - H&P: HPI Chief complaint: blood from colostomy, weakness Admitted From: Emergency Dept Plans for Post Hospital Care: Home History of present illness: Ms. Jessica is a 62 year old female with past medical history of COPD, CVA, hepatitis, hyperlipidemia, hypertension, colostomy bag due to recurrent diverticulitis status post sigmoidectomy with complications of ileus and hyponatremia presents to emergency department with chief complaint of blood from her colostomy bag as well as weakness. Patient was recently admitted on due to complications of her colostomy bag. Patient states that she has noticed some high output from her colostomy bag with blood for the last 3 days and is been feeling weak for the past week. States that she has also had subjective fevers, nausea, easily fatigued in that time period. Denies any symptoms of chest pain, shortness of breath, vomiting, dysuria. She states her urinary function has been at her baseline levels. Also admits to abdominal pain located diffusely across the lower abdomen. In the emergency room, patient's vital signs are significant for borderline hypotension and 92/58, otherwise within normal limits. Labs are significant for a WBC elevation of 15, hyponatremia at 120, hyperkalemia at 6.4, BUNs/ creatinine of 119/9 and a bicarbonate of 14. At that time, ER physician did not consults nephrology who is agreed to see the patient. They also consulted general surgery who also see the patient in the morning. She was given calcium gluconate, insulin, sodium bicarbonate and had a repeat potassium drawn which was 5.4. EKG was normal sinus rhythm however did have peaked T waves in the lateral leads. They also obtained abdominal CT and retroperitoneal ultrasound which was significant for Nonspecific tubular density extending from the skin surface to the anterior abdominal wall, just above the ileostomy site and normal-appearing kidneys. She will be admitted to medicine service for further evaluation and management of acute renal failure likely secondary to dehydration. Past Med Surg Social Fam HX - Past Medical History Medical history: COPD, CVA, GERD, hepatitis, hyperlipidemia, hypertension, other Additional medical history: back surgery Psychiatric history: depression - Past Surgical History Surgical History: colostomy, hysterectomy Additional surgical history: back,. big toe bunion,. egd/colonoscopy,. dental sx,. cardiac cath. bowel rescetion. ileostomy - Social History Smoking Status: Former smoker Smokeless Tobacco Status: No Alcohol use: none Drug use: none - Family History Father Living Status: Hx Family Cardiac Disorders: Yes Hx Family Respiratory Disorders: Yes Hx Family Cancer: No Hx Family GI Disorders: No Hx Family Endocrine Disorder: No Hx Family Neuromuscular Disorders: No Hx Family Neurologic Disorders: No Hx Family HEENT Disorders: No Hx Family Autoimmune Disorders: Yes Internal Medicine - H&P: Meds Diltiazem CD (24hr) [Cardizem CD] 180 mg PO DAILY 06/27/17 [History] Ibuprofen [Motrin] 800 mg PO Q8HR PRN #42 tablet 10/06/17 [Rx] OxyCODONE/APAP 5/325 [Percocet 5/325 MG] 1 each PO Q6HR PRN 7 Days #28 tablet [Rx] Diphenoxylate/Atropine [Lomotil 2.5 mg/0.025 mg] 1 tab PO BID PRN 30 Days #60 tablet 10/28/17 [Rx] Loperamide [Imodium] 8 mg PO QID PRN 15 Days #240 capsule 10/28/17 [Rx] Ondansetron ODT [Zofran ODT] 4 mg SL Q6HR #15 tab.rapdis 10/28/17 [Rx] Famotidine [Pepcid] 40 mg PO DAILY 11/09/17 [History] 3 Allergy/AdvReac Type Severity Reaction Status Date / Time Penicillins [PCN] Allergy Rash Verified 11/09/17 15:30 niacin AdvReac Flushing Verified 11/09/17 15:30 duracef Allergy See Uncoded 11/09/17 15:30 Comments All Systems PM: A 10-system review of systems was performed and is negative for pertinent findings except as documented above in the HPI. Review of systems: - Constitutional: Admits to fatigue, subjective fevers Denies chills, weight loss - EENT: Denies vision changes/blurriness, tinnitus, auditory changes, rhinorrhea , congestion, sore throat, odynaphagia - CVS: Denies chest pain, palpitations, BYRD, orthopnea, edema, PND, - Pulm: Denies SOB, cough, sputum, hematemesis, wheezing - GI: Admits to abdominal pain, nausea, blood per colostomy bag Denies anorexia , vomiting, diarrhea, constipation, - : Denies dysuria, increased frequency, urgency, hematuria, - Skin: Denies rashes, ulcers, color changes, - Neuro: Denies GONZALEZ, paresthesias, focal deficits, ataxia, - Constitutional Vitals: Temp Pulse Resp BP Pulse Ox 97.7 F 84 20 92/58 97 11/09/17 15:34 11/09/17 19:02 11/09/17 19:02 11/09/17 19:02 11/09/17 19:02 Exam: Gen.: Vitals noted. No acute distress. AAOx3, resting comfortably in bed HEENT: PERRL/EOMI, oropharynx clear, Normocephalic, atraumatic, mildly dry mucous membranes Cardiac: RRR, no murmur, +S1/S2 Pulmonary: CTA bilaterally, no wheezes, rales or rhonchi, equal chest expansion Abdomen: soft, diffusely tender to palpation with most prominent in lower abdomen, BS noted, no guarding, no rebound, nondistended Extremities: no BLE edema, nontender calf, no cyanosis or clubbing : Yellow urine present in jones catheter Neuro: A&Ox3, moves all extremities, no focal deficits Psych: Appropriate mood and behavior Internal Med - H&P Results - Labs CBC & Chem 7: 11/09/17 16:13 11/09/17 19:33 Labs: Short CBC 11/09/17 Range/Units 16:13 WBC 15.5 H (4.3-11.1) K/mcL Hgb 14.3 (11.5-15.4) g/dL Hct 40.7 (35.3-44.9) % Plt Count 130 L (140-400) K/mcL Neutrophils # 10.1 H (1.6-8.9) K/mcL BMP 11/09/17 11/09/17 16:13 19:33 Sodium 120 L* Potassium 6.4 H 5.4 H Chloride 85 L Carbon Dioxide 14 L BUN 119 H Creatinine 9.05 H Glucose 118 H Calcium 10.1 - Impressions ITS Impressions Abdomen/Pelvis CT 11/09/17 17:05 IMPRESSION: No acute intra-abdominal or intrapelvic abnormality detected. Nonspecific tubular density extending from the skin surface to the anterior abdominal wall, just above the ileostomy site. Rule out fistula if clinically warranted. D/ / Jelani Schulz MD / Jelani Schulz MD Interpreting Provider: Jelani Schulz MD Retroperitoneum Ultrasound 11/09/17 17:47 IMPRESSION: No hydronephrosis nor shadowing renal pelvic stones. Increased echogenicity of the renal parenchyma, nonspecific finding suggesting medical renal disease. D/ / Justyna Rios Cha, MD / Justyna Rios Cha, MD Interpreting Provider: Justyna Rios Cha, MD - Assessment and plan (1) Acute kidney failure Current Visit: Yes Status: Acute Assessment and plan: - Acute renal failure likely secondary to pre-renal causes - Reports increased output from colosotomy bag and decreased oral intake - BUN/Cr of 119/9 on presentation, no previous kidney history - Associated K of 6.4 which was 5.4 after bicarb and insulin administration - Neprho consulted in ED, appreciate recommendations Plan - Continue bicarb drip with 3 amps in D5W - nephro recs - Suspect hypovolemia, will monitor and give fluid in bicarb gtt - No need for urgent dialysis as patient is responding to treatments at this time Qualifiers: Acute renal failure type: unspecified Qualified Code(s): N17.9 - Acute kidney failure, unspecified (2) Hyperkalemia Current Visit: Yes Status: Acute Assessment and plan: - K of 6.4 on presentation which has improved to 5.4 with sodium bicarb, insulin - Secondary to acute renal failure as below - Peaked T waves in lateral leads on EKG, received calcium gluconate in ED - Improving, continue sodium bicarb gtt with 2 amps in D5W - Monitor carefully on telemetry - Repeat labs in AM (3) Hyponatremia Current Visit: Yes Status: Acute Assessment and plan: - Na of 120 on presentation to ED - History of hyponatremia following colostomy likely secondary to high output - Hypovolemic on exam - Nephro following, appreciate recs Plan - Na q2 hours checks - Goal of 130 in next 24 hours - Treat underlying kidney and volume with sodium bicarb (4) GI bleed Current Visit: Yes Status: Acute Assessment and plan: - Reported blood in colostomy bag which is absent on exam - Started on protonix BID - General surgery consulted in ED. - H/H stable. - Transfuse as necessary with goal >7 Qualifiers: GI bleed type/associated pathology: unspecified gastrointestinal hemorrhage type Qualified Code(s): K92.2 - Gastrointestinal hemorrhage, unspecified (5) Poor fluid intake Current Visit: Yes Status: Acute Assessment and plan: As above for JACQUIE (6) S/P colectomy Current Visit: Yes Status: Chronic Assessment and plan: With colostomy bag, general surgery following - Secondary to recurrent diverticulitis (7) Essential hypertension Current Visit: Yes Status: Chronic Assessment and plan: - [place] Hypotension on presentation in 90s/60s - Hold all home BP meds - Monitor and fluid resuscitate as above (8) Hepatitis C Current Visit: Yes Status: Chronic Assessment and plan: - Management as outpatient Qualifiers: Viral hepatitis chronicity: chronic Hepatic coma status: without hepatic coma Qualified Code(s): B18.2 - Chronic viral hepatitis C (9) Abdominal pain Current Visit: Yes Status: Acute Assessment and plan: - Possibly secondary to colostomy irritation vs GI bleed vs questionable fistula on CT scan - Further management per general surgery - Pain control Qualifiers: Abdominal location: generalized Qualified Code(s): R10.84 - Generalized abdominal pain (10) DVT prophylaxis Current Visit: Yes Status: Acute Assessment and plan: - SCDs due to complaint of blood in colostomy bag (11) Metabolic acidosis Current Visit: Yes Status: Acute Assessment and plan: - Secondary to uremia as above - Bicarb of 14 on presentation, Anion gap present (21) - Will treat underlying cause and bicarb gtt - Time Spent With Patient Total time spent is greater than 50% in coordination of care (as documented) at patient's floor/unit and/or counseling patient: 25 - 35 minutes <Tamar Lamas - Last Filed: 11/09/17 23:24> Date of Encounter: 11/09/17 Time of Encounter: 20:40 Internal Medicine - H&P: HPI History of present illness: Ms. Aracely is a 62 year old female All Systems PM: A 10-system review of systems was performed and is negative for pertinent findings except as documented above in the HPI. - Constitutional Vitals: Temp Pulse Resp BP Pulse Ox 97.7 F 87 19 108/77 100 11/09/17 22:25 11/09/17 22:25 11/09/17 22:25 11/09/17 22:25 11/09/17 22:25 Internal Med - H&P Results - Labs CBC & Chem 7: 11/09/17 16:13 11/09/17 22:38 Labs: BMP 11/09/17 22:38 Sodium 127 L - Attending Attestation I examined this patient and my medical decision-making was reviewed with the Resident Physician, Hai Malone. I agree with the documented findings, disposition and treatment plan as described with any changes as documented below. 62-year-old female patient with history of hypertension and hyperlipidemia, COPD , CVA with recent ileostomy status post sigmoidectomy due to recurrent diverticulitis presented to the ER with complaints of blood in her ileostomy bag. She does have chronic hyponatremia with sodium levels usually running around 127 to 130. She reports feeling sick for past week along with intermittent episodes of blood in her colostomy bag. She denies any oliguria or dysuria. No nausea or vomiting. Does complain of poor appetite. Reports increased thirst. On examination, patient appears dry. Is awake and alert. Heart sounds are normal. Breath sounds are normal. Patient appears to be very thin built and cachectic. Ileostomy bag is full of stools. I do not see any blood. Abdomen is soft. Nontender. Currently has a Jones catheter in place draining clear urine. CT scan of the abdomen and pelvis shows nonspecific tubular density from skin surface to anterior abdominal wall just above the ileostomy site. Rule out fistula. Retroperitoneal ultrasound shows increased echogenicity of the renal parenchyma suggesting medical renal disease. EKG shows normal sinus rhythm. Acute kidney injury: Likely prerenal from dehydration and increased ileostomy output. Will treat with IV fluids. Follow renal function closely. Nephrology has been consulted. We will follow recommendations. Severe Hyperkalemia: Due to acute kidney injury. Improving. Potassium 5.4 after she received medications in the ER. We will continue to monitor potassium levels. Hyponatremia: Sodium 120. Likely due to dehydration and fluid losses. We will treat with IV fluids. Monitor sodium levels closely. Avoid aggressive rise in sodium. Possible GI bleed: Patient reports bloody streaks in her ileostomy bag. We will monitor her blood counts. Currently eats normal but it could be due to hemoconcentration. We will reevaluate after patient has received IV fluids. Metabolic acidosis: We will treat with IV fluids and sodium bicarbonate in D5 water given severe hyperkalemia. Recent ileostomy with possible fistula per CT: Surgery has been consulted. We will follow their recommendations. Keep patient on ice chips only for now Protein calorie malnutrition: Severe. We will consult nutrition for evaluation. - Assessment and plan (1) Acute kidney failure Current Visit: Yes Status: Acute Qualifiers: Acute renal failure type: unspecified Qualified Code(s): N17.9 - Acute kidney failure, unspecified (2) Metabolic acidosis Current Visit: Yes Status: Acute (3) Hepatitis C Current Visit: Yes Status: Chronic Qualifiers: Viral hepatitis chronicity: chronic Hepatic coma status: without hepatic coma Qualified Code(s): B18.2 - Chronic viral hepatitis C (4) Abdominal pain Current Visit: Yes Status: Acute Qualifiers: Abdominal location: generalized Qualified Code(s): R10.84 - Generalized abdominal pain (5) Essential hypertension Current Visit: Yes Status: Chronic (6) S/P colectomy Current Visit: Yes Status: Chronic (7) Hyponatremia Current Visit: Yes Status: Acute (8) Poor fluid intake Current Visit: Yes Status: Acute (9) Hyperkalemia Current Visit: Yes Status: Acute (10) GI bleed Current Visit: Yes Status: Acute Qualifiers: GI bleed type/associated pathology: unspecified gastrointestinal hemorrhage type Qualified Code(s): K92.2 - Gastrointestinal hemorrhage, unspecified (11) DVT prophylaxis Current Visit: Yes Status: Acute - Time Spent With Patient Total time spent is greater than 50% in coordination of care (as documented) at patient's floor/unit and/or counseling patient:
[2017-11-09] MEDS ORDERED: *HR* FentaNYL (PF) 100 MCG/2 ML VIAL IVP ONE (20:45)
[2017-11-09] MEDS ORDERED: Acetaminophen 325 MG TABLET PO PRN (21:15)
[2017-11-09] MEDS ORDERED: Sodium Bicarbonate 150 MEQ in D5% in Water 1,000 ML IVC SCH (21:15)
[2017-11-09] MEDS ORDERED: Naloxone 0.4 MG/ML INJ IVP PRN (21:15)
--- NOTE | 2017-11-09 21:22 | Event Note ---
Date of Encounter: 11/09/17 Time of Encounter: 20:40 I examined this patient and my medical decision-making was reviewed with the Resident Physician, Hai Malone. I agree with the documented findings, disposition and treatment plan as described with any changes as documented below. 62-year-old female patient with history of hypertension and hyperlipidemia, COPD , CVA with recent ileostomy status post sigmoidectomy due to recurrent diverticulitis presented to the ER with complaints of blood in her ileostomy bag. She does have chronic hyponatremia with sodium levels usually running around 127 to 130. She reports feeling sick for past week along with intermittent episodes of blood in her colostomy bag. She denies any oliguria or dysuria. No nausea or vomiting. Does complain of poor appetite. Reports increased thirst. On examination, patient appears dry. Is awake and alert. Heart sounds are normal. Breath sounds are normal. Patient appears to be very thin built and cachectic. Ileostomy bag is full of stools. I do not see any blood. Abdomen is soft. Nontender. Currently has a Jane catheter in place draining clear urine. CT scan of the abdomen and pelvis shows nonspecific tubular density from skin surface to anterior abdominal wall just above the ileostomy site. Rule out fistula. Retroperitoneal ultrasound shows increased echogenicity of the renal parenchyma suggesting medical renal disease. EKG shows normal sinus rhythm. Acute kidney injury: Likely prerenal from dehydration and increased ileostomy output. Will treat with IV fluids. Follow renal function closely. Nephrology has been consulted. We will follow recommendations. Severe Hyperkalemia: Due to acute kidney injury. Improving. Potassium 5.4 after she received medications in the ER. We will continue to monitor potassium levels. Hyponatremia: Sodium 120. Likely due to dehydration and fluid losses. We will treat with IV fluids. Monitor sodium levels closely. Avoid aggressive rise in sodium. Possible GI bleed: Patient reports bloody streaks in her ileostomy bag. We will monitor her blood counts. Currently eats normal but it could be due to hemoconcentration. We will reevaluate after patient has received IV fluids. Metabolic acidosis: We will treat with IV fluids and sodium bicarbonate in D5 water given severe hyperkalemia. Recent ileostomy with possible fistula per CT: Surgery has been consulted. We will follow their recommendations. Keep patient on ice chips only for now Protein calorie malnutrition: Severe. We will consult nutrition for evaluation.
[2017-11-10] MEDS: *HR* OxyCODONE Immed Rel 5 MG TABLET PO PRN ×2 (00:56→11:15)
[2017-11-10 02:14] LABS: Basophils # 0.1 K/mcL (0.0-0.2); Basophils % 0.7 %; Eosinophils % 0.1 %; Hematocrit 29.7 % (35.3-44.9); Immature Granulocytes % 0.4 % (0-4); Lymphocytes # 2.1 K/mcL (0.6-4.6); Lymphocytes % 19.3 %; Mean Corpuscular Hemoglobin 31.7 pg (28.0-33.3); Mean Corpuscular Volume 87.9 fL (83.0-100.0); Mean Platelet Volume 13.2 fL (9.4-12.4); Monocytes # 1.1 K/mcL (0.0-1.3); Neutrophils # 7.4 K/mcL (1.6-8.9); Red Blood Count 3.38 M/mcL (3.82-4.97); Red Cell Distribution Width 14.1 % (11.5-14.5); Segmented Neutrophils % 69.5 %
[2017-11-10 02:15] LABS: Hemoglobin 10.7 g/dL (11.5-15.4); Platelet Count 68 K/mcL (140-400)
[2017-11-10 02:37] LABS: Calcium 8.8 mg/dL (8.6-10.3); Magnesium 1.5 mg/dL (1.6-2.6); Phosphorous 7.8 mg/dL (2.7-4.5); Potassium 4.6 mEq/L (3.5-5.1)
[2017-11-10] MEDS: Pantoprazole 40 MG VIAL IVP SCH ×2 (06:09→19:58)
--- NOTE | 2017-11-10 07:17 | Electrocardiograph Report ---
[address] [address] Test Date: 2017-11-09 Pat Name: Zoë Jessica Department: 103 Room: 2N04 Gender: F [employer]: : [id number] Requested By: Yulissa See Order Number: [id number] Reading MD: Mirza Contreras Measurements Intervals [place] Rate: 81 P: 78 IN: 154 QRS: -60 QRSD: 82 T: 44 QT: 337 QTc: 375 Interpretive Statements SINUS RHYTHM Poor R wave progression LEFT ANTERIOR FASCICULAR BLOCK Electronically Signed On 11-10-2017 7:16:26 EDT by Mirza Contreras
[2017-11-10] MEDS: *HR* HYDROcodone/Acet 5/325 mg TABLET PO PRN (07:26)
--- NOTE | 2017-11-10 09:58 | General Surgery Consult Note ---
<Benedict Ugalde - Last Filed: 11/10/17 09:56> Date of Encounter: 11/10/17 Time of Encounter: 06:40 Assessment and Plan (1) GI bleed Current Visit: Yes Status: Acute Hemoblogin dropped from 14.3 down to 10.7 since yesterday. Total intake of 2010 and output of 1140. No blood in colostomy bag on exam. Currently on protonix BID. (2) S/P colectomy Current Visit: Yes Status: Chronic (3) Acute kidney failure Current Visit: Yes Status: Acute Secondary to poor fluid intake. On bicarb drip with 3 amps in D5W. Creatinine dropped from 9.05 down to 6.05 since yesterday. (4) Metabolic acidosis Current Visit: Yes Status: Acute (5) Hyperkalemia Current Visit: Yes Status: Acute Improved from 5.4 down to 4.6 with sodium bicarb and insulin. History of Present Illness Consult date: 11/10/17 Requesting physician: Kvng Terry History of present illness: Patient is a 62 Y F with a PMH of COPD, CVA, hepatitis, HLD, and HTN with a PSH of sigmoidectomy with diverting loop illeostomy on 10/03/17 and cholecystectomy on 10/27/17 that presents for bleeding from her colostomy bag. Patient says she initially started noticing high output from her colostomy bag and subsequently found bleeding that started 1 week ago and has been intermittent. She admits to progressive weakness. She admits intermittent pain in the LLQ. She admits to subjective fevers. Admits to nausea yesterday but denies any vomiting. Denies any chest pain or shortness of breath. Denies any dysuria. When presenting to the ED, patient was displayed hypotension, hyponatremia, hyperkalemia and elevated creatinine level of 9.05. EKG was normal sinus rhythm however did have peaked T waves in the lateral leads likely secondary to the hyperkalemia. Abdominal CT and retroperitoneal ultrasound showed Nonspecific tubular density extending from the skin surface to the anteriorabdominal wall, just above the ileostomy site and normal-appearing kidneys. She was admitted for acute renal failure secondary to deyhdration as well as for GI bleed. Past Med Surg Social Fam HX - Past Medical History Medical history: COPD, CVA, GERD, hepatitis, hyperlipidemia, hypertension, other Additional medical history: back surgery Psychiatric history: depression - Past Surgical History Surgical History: colostomy, hysterectomy Additional surgical history: back,. big toe bunion,. egd/colonoscopy,. dental sx,. bowel rescetion. ileostomy - Social History Smoking Status: Former smoker Smokeless Tobacco Status: No Alcohol use: none Drug use: none - Family History Father History Unknown: Yes Living Status: Hx Family Cardiac Disorders: Yes Hx Family Respiratory Disorders: Yes Hx Family Cancer: No Hx Family GI Disorders: No Hx Family Endocrine Disorder: No Hx Family Neuromuscular Disorders: No Hx Family Neurologic Disorders: No Hx Family HEENT Disorders: No Hx Family Autoimmune Disorders: Yes Medications and Allergies Diltiazem CD (24hr) [Cardizem CD] 180 mg PO DAILY 06/27/17 [History] Ibuprofen [Motrin] 800 mg PO Q8HR PRN #42 tablet 10/06/17 [Rx] OxyCODONE/APAP 5/325 [Percocet 5/325 MG] 1 each PO Q6HR PRN 7 Days #28 tablet [Rx] Diphenoxylate/Atropine [Lomotil 2.5 mg/0.025 mg] 1 tab PO BID PRN 30 Days #60 tablet 10/28/17 [Rx] Loperamide [Imodium] 8 mg PO QID PRN 15 Days #240 capsule 10/28/17 [Rx] Ondansetron ODT [Zofran ODT] 4 mg SL Q6HR #15 tab.rapdis 10/28/17 [Rx] Famotidine [Pepcid] 40 mg PO DAILY 11/09/17 [History] 3 Allergy/AdvReac Type Severity Reaction Status Date / Time Penicillins [PCN] Allergy Rash Verified 11/09/17 15:30 niacin AdvReac Flushing Verified 11/09/17 15:30 duracef Allergy See Uncoded 11/09/17 15:30 Comments Review of Systems All systems PM: The remainder of the systems were reviewed and are negative - Constitutional fever(s), weakness, no chills - Cardiovascular no chest pain, no dyspnea - Gastrointestinal abdominal pain, change in bowel habits, other (Blood in onstomy bag. ) - Genitourinary Genitourinary: no dysuria - Psychiatric as per HPI General Surgery Exam Initial Vital Signs Temp Pulse Resp BP Pulse Ox 97.7 F 108 14 85/57 98 11/09/17 14:32 11/09/17 14:32 11/09/17 14:32 11/09/17 14:32 11/09/17 14:32 - General physical appearance well developed, well nourished, no distress - Respiratory normal expansion, normal respiratory effort, clear to percussion, clear to auscultation - Cardiovascular Cardiovascular exam: Present: RRR, 15, 16 - Expanded Cardiovascular Exam Peripheral pulses: 2+: Radial (L), Radial (R), Posterior Tibialis (L), Posterior Tibialis (R), Dorsalis Pedis (L) PM, Dorsalis Pedis (R) PM - Abdomen Abdomen general surgery: Present: bowel sounds present, soft, surgical scars ( Located in LUQ+LLQ. Daniela intact. Incision wet. Minor serosanguinous drainage. No signs of erythema, swelling, or active bleeding.) Abdominal Tenderness: Present: LLQ - Incision Incision: Present: intact, serosanguinous. Absent: swollen, erythema, purulent - Psychiatric Psychiatric general surgery: Present: appropriate, oriented to person, oriented to place, oriented to time, speech is normal, memory intact Exam Initial Vital Signs Temp Pulse Resp BP Pulse Ox 97.7 F 108 14 85/57 98 11/09/17 14:32 11/09/17 14:32 11/09/17 14:32 11/09/17 14:32 11/09/17 14:32 Results - Labs 11/10/17 01:52 11/10/17 01:52 Abnormal lab results RBC 3.38 M/mcL (3.82-4.97) L 11/10/17 01:52 Hgb 10.7 g/dL (11.5-15.4) L D 11/10/17 01:52 Hct 29.7 % (35.3-44.9) L 11/10/17 01:52 MCHC 36.0 g/dL (31.6-35.5) H 11/10/17 01:52 Plt Count 68 K/mcL (140-400) L 11/10/17 01:52 MPV 13.2 fL (9.4-12.4) H 11/10/17 01:52 PT 14.2 Seconds (9.4-12.1) H 11/09/17 16:13 Sodium 125 mEq/L (136-145) L 11/10/17 01:52 Chloride 94 mEq/L (98-107) L 11/10/17 01:52 Carbon Dioxide 18 mEq/L (23-29) L 11/10/17 01:52 BUN 107 mg/dL (8-23) H 11/10/17 01:52 Creatinine 6.90 mg/dL (0.60-1.20) H 11/10/17 01:52 Est GFR ( Amer) 7 (> 60) L 11/10/17 01:52 Est GFR (Non-Af Amer) 6 (> 60) L 11/10/17 01:52 Glucose 121 mg/dL (70-105) H 11/10/17 01:52 POC Glucose 112 mg/dL (70-99) H 11/10/17 05:15 Phosphorus 7.8 mg/dL (2.7-4.5) H 11/10/17 01:52 Magnesium 1.5 mg/dL (1.6-2.6) L 11/10/17 01:52 Diabetes panel 11/09/17 11/10/17 11/10/17 Range/Units 22:38 00:03 01:52 Sodium 127 L 124 L 125 L (136-145) mEq/L Potassium (3.5-5.1) mEq/L Chloride (98-107) mEq/L Carbon Dioxide (23-29) mEq/L BUN (8-23) mg/dL Creatinine (0.60-1.20) mg/dL Glucose (70-105) mg/dL Calcium (8.6-10.3) mg/dL 11/10/17 Range/Units 01:52 Sodium 127 L (136-145) mEq/L Potassium 4.6 (3.5-5.1) mEq/L Chloride 94 L (98-107) mEq/L Carbon Dioxide 18 L (23-29) mEq/L BUN 107 H (8-23) mg/dL Creatinine 6.90 H (0.60-1.20) mg/dL Glucose 121 H (70-105) mg/dL Calcium 8.8 (8.6-10.3) mg/dL Calcium panel 11/10/17 Range/Units 01:52 Calcium 8.8 (8.6-10.3) mg/dL Phosphorus 7.8 H (2.7-4.5) mg/dL Pituitary panel 11/09/17 11/10/17 11/10/17 Range/Units 22:38 00:03 01:52 Sodium 127 L 124 L 125 L (136-145) mEq/L Potassium (3.5-5.1) mEq/L Chloride (98-107) mEq/L Carbon Dioxide (23-29) mEq/L BUN (8-23) mg/dL Creatinine (0.60-1.20) mg/dL Glucose (70-105) mg/dL Calcium (8.6-10.3) mg/dL 11/10/17 Range/Units 01:52 Sodium 127 L (136-145) mEq/L Potassium 4.6 (3.5-5.1) mEq/L Chloride 94 L (98-107) mEq/L Carbon Dioxide 18 L (23-29) mEq/L BUN 107 H (8-23) mg/dL Creatinine 6.90 H (0.60-1.20) mg/dL Glucose 121 H (70-105) mg/dL Calcium 8.8 (8.6-10.3) mg/dL Adrenal panel 11/09/17 11/10/17 11/10/17 Range/Units 22:38 00:03 01:52 Sodium 127 L 124 L 125 L (136-145) mEq/L Potassium (3.5-5.1) mEq/L Chloride (98-107) mEq/L Carbon Dioxide (23-29) mEq/L BUN (8-23) mg/dL Creatinine (0.60-1.20) mg/dL Glucose (70-105) mg/dL Calcium (8.6-10.3) mg/dL 11/10/17 Range/Units 01:52 Sodium 127 L (136-145) mEq/L Potassium 4.6 (3.5-5.1) mEq/L Chloride 94 L (98-107) mEq/L Carbon Dioxide 18 L (23-29) mEq/L BUN 107 H (8-23) mg/dL Creatinine 6.90 H (0.60-1.20) mg/dL Glucose 121 H (70-105) mg/dL Calcium 8.8 (8.6-10.3) mg/dL All other labs normal. Consult Discharge Plan - Plan Referrals: Ghanshyam Taylor [Primary Care Provider] - <Rafita Frazier - Last Filed: 11/10/17 12:14> Date of Encounter: 11/10/17 Review of Systems All systems PM: The remainder of the systems were reviewed and are negative General Surgery Exam Initial Vital Signs Temp Pulse Resp BP Pulse Ox 97.7 F 108 14 85/57 98 11/09/17 14:32 11/09/17 14:32 11/09/17 14:32 11/09/17 14:32 11/09/17 14:32 Exam Initial Vital Signs Temp Pulse Resp BP Pulse Ox 97.7 F 108 14 85/57 98 11/09/17 14:32 11/09/17 14:32 11/09/17 14:32 11/09/17 14:32 11/09/17 14:32 Results - Labs 11/10/17 01:52 11/10/17 01:52 Abnormal lab results RBC 3.38 M/mcL (3.82-4.97) L 11/10/17 01:52 Hgb 10.7 g/dL (11.5-15.4) L D 11/10/17 01:52 Hct 29.7 % (35.3-44.9) L 11/10/17 01:52 MCHC 36.0 g/dL (31.6-35.5) H 11/10/17 01:52 Plt Count 68 K/mcL (140-400) L 11/10/17 01:52 MPV 13.2 fL (9.4-12.4) H 11/10/17 01:52 PT 14.2 Seconds (9.4-12.1) H 11/09/17 16:13 Sodium 125 mEq/L (136-145) L 11/10/17 01:52 Chloride 94 mEq/L (98-107) L 11/10/17 01:52 Carbon Dioxide 18 mEq/L (23-29) L 11/10/17 01:52 BUN 107 mg/dL (8-23) H 11/10/17 01:52 Creatinine 6.90 mg/dL (0.60-1.20) H 11/10/17 01:52 Est GFR ( Amer) 7 (> 60) L 11/10/17 01:52 Est GFR (Non-Af Amer) 6 (> 60) L 11/10/17 01:52 Glucose 121 mg/dL (70-105) H 11/10/17 01:52 POC Glucose 112 mg/dL (70-99) H 11/10/17 05:15 Phosphorus 7.8 mg/dL (2.7-4.5) H 11/10/17 01:52 Magnesium 1.5 mg/dL (1.6-2.6) L 11/10/17 01:52 Diabetes panel 11/09/17 11/10/17 11/10/17 Range/Units 22:38 00:03 01:52 Sodium 127 L 124 L 125 L (136-145) mEq/L Potassium (3.5-5.1) mEq/L Chloride (98-107) mEq/L Carbon Dioxide (23-29) mEq/L BUN (8-23) mg/dL Creatinine (0.60-1.20) mg/dL Glucose (70-105) mg/dL Calcium (8.6-10.3) mg/dL 11/10/17 Range/Units 01:52 Sodium 127 L (136-145) mEq/L Potassium 4.6 (3.5-5.1) mEq/L Chloride 94 L (98-107) mEq/L Carbon Dioxide 18 L (23-29) mEq/L BUN 107 H (8-23) mg/dL Creatinine 6.90 H (0.60-1.20) mg/dL Glucose 121 H (70-105) mg/dL Calcium 8.8 (8.6-10.3) mg/dL Calcium panel 11/10/17 Range/Units 01:52 Calcium 8.8 (8.6-10.3) mg/dL Phosphorus 7.8 H (2.7-4.5) mg/dL Pituitary panel 11/09/17 11/10/17 11/10/17 Range/Units 22:38 00:03 01:52 Sodium 127 L 124 L 125 L (136-145) mEq/L Potassium (3.5-5.1) mEq/L Chloride (98-107) mEq/L Carbon Dioxide (23-29) mEq/L BUN (8-23) mg/dL Creatinine (0.60-1.20) mg/dL Glucose (70-105) mg/dL Calcium (8.6-10.3) mg/dL 11/10/17 Range/Units 01:52 Sodium 127 L (136-145) mEq/L Potassium 4.6 (3.5-5.1) mEq/L Chloride 94 L (98-107) mEq/L Carbon Dioxide 18 L (23-29) mEq/L BUN 107 H (8-23) mg/dL Creatinine 6.90 H (0.60-1.20) mg/dL Glucose 121 H (70-105) mg/dL Calcium 8.8 (8.6-10.3) mg/dL Adrenal panel 11/09/17 11/10/17 11/10/17 Range/Units 22:38 00:03 01:52 Sodium 127 L 124 L 125 L (136-145) mEq/L Potassium (3.5-5.1) mEq/L Chloride (98-107) mEq/L Carbon Dioxide (23-29) mEq/L BUN (8-23) mg/dL Creatinine (0.60-1.20) mg/dL Glucose (70-105) mg/dL Calcium (8.6-10.3) mg/dL 11/10/17 Range/Units 01:52 Sodium 127 L (136-145) mEq/L Potassium 4.6 (3.5-5.1) mEq/L Chloride 94 L (98-107) mEq/L Carbon Dioxide 18 L (23-29) mEq/L BUN 107 H (8-23) mg/dL Creatinine 6.90 H (0.60-1.20) mg/dL Glucose 121 H (70-105) mg/dL Calcium 8.8 (8.6-10.3) mg/dL All other labs normal. - Attending Attestation I have personally seen and examined the patient. I have reviewed pertinent labs , imaging, progress notes, including this one. I agree with the above assessment and plan and wish to include the following... 62F h/o cirrhosis, diverticulitis, CVA, HTN, HLD, DM s/p robotic cholecystectomy , sigmoidectomy with diverting ileostomy complicated by dehydration 2/2 poor PO intake and high ileostomy output; In addition patient reports bloody output from the ileostomy. She presents with hyponatremia, hyperkalemia, hyperphosphatemia, acute kidney injury. She was also reportedly light headed as well. But when talking to the patient she states that she has been able to eat appropriately, but, over the last couple of days, her ileostomy output has been higher than normal. She did not keep track of the actual output, but I suspect that the output, for the past few days, maybe longer, has been more than her PO intake. Her abdomen is benign on exam; her ileostomy is pink, viable, and functioning; she is non peritoneal; She is about 7 weeks from her surgery at this point. We will rehydrate the patient, bolus as needed, restore back to baseline kidney function (appreciate nephrology recommendations), replete electrolytes. She can eat as tolerated. Once this is complete, then will plan for contrast study of the anastamosis as well as an EGD and push enteroscopy (to look for source of Upper and lower GI bleed). if those studies show no issues, then will plan for takedown of her ileostomy while inpatient. General surgery will continue to follow.
--- NOTE | 2017-11-10 10:30 | Nephrology Consult Note ---
Date of Encounter: 11/10/17 Time of Encounter: 09:55 Assessment and Plan (1) Acute kidney failure Current Visit: Yes Status: Acute JACQUIE/metabolic acidosis, hyperkalemia, hyponatremia in setting of decreased oral intake, GI losses, dehydration, hypotension. Renal fct improving. Documented urine output 320cc. Has indwelling Jane cath. Will continue current IV hydration. Avoid nephrotoxins, accurate I&O's. Will continue to monitor. Qualifiers: Acute renal failure type: unspecified Qualified Code(s): N17.9 - Acute kidney failure, unspecified History of Present Illness - Reason for Consult Acute Kidney Injury - History of Present Illness Ms. Jessica is a 62 year old female who presented to [facility] for blood in her colostomy bag. She is S/P sigmoidectomy for diverticulitis in mid September, with complications of ileus and hyponatremia. Patient is not a good center medical specialist and son and are present in room providing information. Son states patient has had three surgeries since September, the last being a cholecystectomy and that in general his mom was improving and eating and drinking well. Son states patient has had bleeding in colostomy bag since Tuesday , ranging from bright red to dark blood yesterday. States spoke with surgical nurse yesterday and advised to come to ER. Son states she has had decreased food and fluid intake since Tuesday with abdominal discomfort but did start drinking more water yesterday. Patient denied any decrease in urine output or swelling. Colostomy bag with increased out put on intermittent day then would slow down. She denies prior history of renal insufficiency. Prior labs show few episodes of increased azotemia and hyponatremaia which correlate with patient admissions and subsequential surgeries. Always returning to normal renal fct, however hyponatremia since early October with sodium ranging 127-135. Renal US no obstructive uropathy. CT Abd/Pelvis without contrast-No acute intra-abdominal or intrapelvic abnormality detected. Nonspecific tubular density extending from the skin surface to the anterior abdominal wall, just above the ileostomy site. Initial creat 9.05, sodium 120, K 6.4, bicarb 14, BUN 114. Hgb 14.3. Initially hypotensive SBP 85-98. She was given calcium gluconate, insulin, sodium bicarbonate and had a repeat potassium drawn which was 5.4. EKG was normal sinus rhythm however did have peaked T waves in the lateral leads. Ibuprofen noted on home MAR although patient states only took one tablet in past two weeks. Currently has IV fluids D5W with 3 amps bicarb at 75 cc/hr. Renal fct improving, creat 6.90, sodium 127, bicarb 18, BUN 107. Hgb 10.7. This morning colostomy bag with brown liquid. Abdomen soft, hypo BS. She denied any emesis at home. Past Med Surg Social Fam HX - Past Medical History Medical history: COPD, CVA, GERD, hepatitis, hyperlipidemia, hypertension, other Additional medical history: back surgery Psychiatric history: depression - Past Surgical History Surgical History: colostomy, hysterectomy Additional surgical history: back,. big toe bunion,. egd/colonoscopy,. dental sx,. bowel rescetion. ileostomy - Social History Smoking Status: Former smoker Smokeless Tobacco Status: No Alcohol use: none Drug use: none - Family History Father History Unknown: Yes Living Status: Hx Family Cardiac Disorders: Yes Hx Family Respiratory Disorders: Yes Hx Family Cancer: No Hx Family GI Disorders: No Hx Family Endocrine Disorder: No Hx Family Neuromuscular Disorders: No Hx Family Neurologic Disorders: No Hx Family HEENT Disorders: No Hx Family Autoimmune Disorders: Yes Medications and Allergies Diltiazem CD (24hr) [Cardizem CD] 180 mg PO DAILY 06/27/17 [History] Ibuprofen [Motrin] 800 mg PO Q8HR PRN #42 tablet 10/06/17 [Rx] OxyCODONE/APAP 5/325 [Percocet 5/325 MG] 1 each PO Q6HR PRN 7 Days #28 tablet [Rx] Diphenoxylate/Atropine [Lomotil 2.5 mg/0.025 mg] 1 tab PO BID PRN 30 Days #60 tablet 10/28/17 [Rx] Loperamide [Imodium] 8 mg PO QID PRN 15 Days #240 capsule 10/28/17 [Rx] Ondansetron ODT [Zofran ODT] 4 mg SL Q6HR #15 tab.rapdis 10/28/17 [Rx] Famotidine [Pepcid] 40 mg PO DAILY 11/09/17 [History] 3 Allergy/AdvReac Type Severity Reaction Status Date / Time Penicillins [PCN] Allergy Rash Verified 11/09/17 15:30 niacin AdvReac Flushing Verified 11/09/17 15:30 duracef Allergy See Uncoded 11/09/17 15:30 Comments Review of Systems All Systems: reviewed and no additional remarkable complaints except as stated Exam - Vital Signs Vital signs: Initial Vital Signs Temp Pulse Resp BP Pulse Ox 97.7 F 108 14 85/57 98 11/09/17 14:32 11/09/17 14:32 11/09/17 14:32 11/09/17 14:32 11/09/17 14:32 Vital Signs - Last 8 Hours Temp Pulse Resp BP Pulse Ox 11/10/17 07:04 97.8 F 61 18 83/49 100 11/10/17 07:00 64 11/10/17 04:52 98.0 F 72 20 87/51 98 Intake and Output 11/09/17 11/10/17 11/10/17 23:59 07:59 15:59 Output Total 320 / 320 720 / 720 100 / 100 Balance -320 / 1690.1 -720 / -720 -100 / -100 Output: Stool 400 / 400 100 / 100 Catheter 320 / 320 320 / 320 Other: Stool Size Small Stool Consistency liquid Stool Characteristics Normal for Patient Stool Color Brown Brown Bright Red Blood Weight 44.7 kg 44.9 kg Blood Glucose* 114 112 Patient Weight 11/10/17 23:59 Weight 44.9 kg - General Appearance General appearance: well-developed, cachectic EENT: mucous membranes moist Neck: no JVD Additional Comments: diminished with scattered rhonchi Cardiology: no edema, irregular rhythm Gastrointestinal: hypoactive bowel sounds, no tenderness, no guarding Integumentary: warm and dry Neurologic: alert and oriented x3 Results - Lab Results 11/10/17 01:52 11/10/17 01:52 Most recent lab results Calcium 8.8 mg/dL (8.6-10.3) 11/10/17 01:52 Phosphorus 7.8 mg/dL (2.7-4.5) H 11/10/17 01:52 Magnesium 1.5 mg/dL (1.6-2.6) L 11/10/17 01:52 Consult Discharge Plan - Plan Referrals: Ghanshyam Taylor [Primary Care Provider] -
[2017-11-10] MEDS: Sodium Bicarbonate 150 MEQ in D5% in Water 1,000 ML IVC SCH (12:04)
[2017-11-10 12:25] LABS: Calcium 8.7 mg/dL (8.6-10.3); Potassium 3.5 mEq/L (3.5-5.1)
--- NOTE | 2017-11-10 18:03 | Internal Med Progress Note ---
Date of Encounter: 11/10/17 Time of Encounter: 18:01 - Assessment and plan (1) GI bleed Current Visit: Yes Status: Acute Assessment and plan: No blood in colostomy bag at this time. Hemoglobin down to 10.7 from 14.3. Continue IV protonix BID. Recheck CBC in AM; transfuse as necessary with goal Hgb > 7.0. General surgery consulted; appreciate input. Plan for possible reversal of colostomy after medically stable. Qualifiers: GI bleed type/associated pathology: unspecified gastrointestinal hemorrhage type Qualified Code(s): K92.2 - Gastrointestinal hemorrhage, unspecified (2) Hyperkalemia Current Visit: Yes Status: Resolved Assessment and plan: Resolved. Continue telemetry. Repeat BMP in AM. (3) Hyponatremia Current Visit: Yes Status: Acute Assessment and plan: Improved. Continue IVF with sodium bicarbonate. Continue serial Na checks. Nephrology consulted; appreciate input. Recheck BMP in AM. (4) Acute kidney failure Current Visit: Yes Status: Acute Assessment and plan: Improved. Continue IVF with sodium bicarbonate. Nephrology consulted; appreciate input. Recheck BMP in AM. Qualifiers: Acute renal failure type: unspecified Qualified Code(s): N17.9 - Acute kidney failure, unspecified (5) Abdominal pain Current Visit: Yes Status: Acute Assessment and plan: Improved. Pain control. General surgery consulted; appreciate input. Qualifiers: Abdominal location: generalized Qualified Code(s): R10.84 - Generalized abdominal pain (6) Metabolic acidosis Current Visit: Yes Status: Acute Assessment and plan: Improved. Continue IVF with sodium bicarbonate. Nephrology consulted; appreciate input. Recheck BMP in AM. (7) Hepatitis C Current Visit: Yes Status: Chronic Assessment and plan: Continue management as outpatient. Qualifiers: Viral hepatitis chronicity: chronic Hepatic coma status: without hepatic coma Qualified Code(s): B18.2 - Chronic viral hepatitis C (8) Essential hypertension Current Visit: Yes Status: Chronic Assessment and plan: Hypotension improved. Continue fluid resuscitation. Monitor vitals closely. (9) S/P colectomy Current Visit: Yes Status: Chronic Assessment and plan: General surgery consulted; appreciate input. (10) Poor fluid intake Current Visit: Yes Status: Acute Assessment and plan: Management as per above. Continue diet as tolerated. (11) DVT prophylaxis Current Visit: Yes Status: Acute Assessment and plan: No anticoagulation due to GI bleed and anemia. Continue SCDs. - Time Spent With Patient Total time spent is greater than 50% in coordination of care (as documented) at patient's floor/unit and/or counseling patient: less than 15 minutes - Subjective Interval history: Patient had no acute events overnight. She states that she is doing "good" at this time. She is eating bread and butter in room at this time without any issues. Colostomy output looks normal without signs of red blood or black stool. She denies abdominal pain, nausea, or vomiting at this time. She denies fever, chills, chest pain, and SOB. She has no complaints at this time. - Constitutional Vitals: Temp Pulse Resp BP Pulse Ox 98.0 F 62 18 104/56 100 11/10/17 16:52 11/10/17 16:52 11/10/17 16:52 11/10/17 16:52 11/10/17 16:52 General appearance: Present: cooperative, A&O X 3, pleasant, no acute distress, answers questions appropriately - Respiratory Respiratory exam: Present: CTAB. Absent: accessory muscle use, rales, rhonchi, wheezes Additional comments: Normal WOB - Cardiovascular Cardiovascular exam: Present: RRR, +S1, +S2. Absent: diastolic murmur, gallop, rubs, systolic murmur Additional comments: No BLE edema - GI/Abdominal GI/Abdominal exam: Present: normal bowel sounds, soft, tenderness (Mild TTP RLQ) . Absent: distended, hepatomegaly, mass, splenomegaly - Psychiatric Psychiatric exam: Present: normal affect, normal mood. Absent: agitated, anxious, depressed - Skin Skin exam: Present: dry, intact, warm. Absent: cyanosis, rash Internal Medicine: Result - Labs CBC & Chem 7: 11/10/17 01:52 11/10/17 11:35 Labs: Short CBC 11/10/17 Range/Units 01:52 WBC 10.7 (4.3-11.1) K/mcL Hgb 10.7 L D (11.5-15.4) g/dL Hct 29.7 L (35.3-44.9) % Plt Count 68 L (140-400) K/mcL Neutrophils # 7.4 (1.6-8.9) K/mcL BMP 11/09/17 11/10/17 11/10/17 22:38 00:03 01:52 Sodium 127 L 124 L 125 L Potassium Chloride Carbon Dioxide BUN Creatinine Glucose Calcium 11/10/17 11/10/17 01:52 11:35 Sodium 127 L 127 L Potassium 4.6 3.5 Chloride 94 L 90 L Carbon Dioxide 18 L 23 BUN 107 H 103 H Creatinine 6.90 H 6.12 H Glucose 121 H 102 Calcium 8.8 8.7 - ABG Interpretation ABG results: PT/INR, D-dimer PT 14.2 Seconds (9.4-12.1) H 11/09/17 16:13 - VTE Reasons for not Prescribing Prophylaxis: Medical contraindication (Active GI bleed/anemia) Documentation of Mechanical Device: Intermittent pneumatic compression device Consult Discharge Plan - Plan Referrals: Ghanshyam Taylor [Primary Care Provider] -
[2017-11-10 18:25] LABS: Calcium 8.4 mg/dL (8.6-10.3); Potassium 3.6 mEq/L (3.5-5.1)
[2017-11-10] MEDS: Ondansetron 4 MG/2 ML VIAL IVP PRN (21:34)
[2017-11-11 00:54] LABS: Hematocrit 27.4 % (35.3-44.9)
[2017-11-11 00:56] LABS: Basophils % 0.5 %; Eosinophils % 0.5 %; Hemoglobin 9.9 g/dL (11.5-15.4); Immature Granulocytes % 0.2 % (0-4); Immature Platelets 7.7 % (1.1-6.1); Lymphocytes # 1.4 K/mcL (0.6-4.6); Lymphocytes % 32.3 %; Mean Corpuscular HGB Conc 36.1 g/dL (31.6-35.5); Mean Corpuscular Hemoglobin 31.5 pg (28.0-33.3); Mean Corpuscular Volume 87.3 fL (83.0-100.0); Monocytes # 0.5 K/mcL (0.0-1.3); Monocytes % 11.1 %; Neutrophils # 2.4 K/mcL (1.6-8.9); Red Blood Count 3.14 M/mcL (3.82-4.97); Segmented Neutrophils % 55.4 %
[2017-11-11 01:10] LABS: Calcium 8.2 mg/dL (8.6-10.3); Potassium 3.1 mEq/L (3.5-5.1)
[2017-11-11 01:13] LABS: Platelet Count 54 K/mcL (140-400)
[2017-11-11] MEDS: Sodium Bicarbonate 150 MEQ in D5% in Water 1,000 ML IVC SCH (03:32)
[2017-11-11] MEDS: Pantoprazole 40 MG VIAL IVP SCH ×2 (06:05→18:10)
[2017-11-11 07:12] LABS: Calcium 8.1 mg/dL (8.6-10.3); Potassium 2.7 mEq/L (3.5-5.1)
[2017-11-11 08:16] LABS: Magnesium 1.2 mg/dL (1.6-2.6); Phosphorous 4.5 mg/dL (2.7-4.5)
[2017-11-11] MEDS ORDERED: Potassium Chloride 40 MEQ, Lidocaine 1% 2 ML in D5% in Water 500 ML IVPB ONE (09:17)
--- NOTE | 2017-11-11 09:54 | General Surgery Progress Note ---
<Benedict Ugalde - Last Filed: 11/11/17 09:48> Date of Encounter: 11/11/17 Time of Encounter: 07:20 - Assessment and Plan (1) GI bleed Current Visit: Yes Status: Acute 7 weeks s/p sigmoidectomy with diverting ileostomy. Presents for high ileostomy output and GI bleed. Patient currently in JACQUIE stage 3, however improving. Her creatinine is improving from 9.05 on admission down to 3.58 today. Patient was hyperkalemic on admission at 5.4 and today she is hypokalemic at 2.7. Magnesium level at 1.2 (yesterday at 1.5). Phosphorus level at 4.5. Hemoblogin dropped from 10.7 down to 9.9 since yesterday. Total intake of 1640 and output of 2425. No blood in colostomy bag on exam. Spoke to file clerk Dr. Gaytan and he recommended giving the patient 40 me K-rider and 2 gm magnesium sulfate IV. Plan is to continue to restore patient's kidney function back to baseline per recommendations from nephrology and replenish her electrolytes. Once this is complete, we will plan for contrast study of the anastamosis as well as an EGD and push enteroscopy if those studies show no issues, then we will plan for takedown of her ileostomy while inpatient. - Continue IV fluids. - Ordered 40 meq K-rider. - Ordered 2 gm Magnesium Sulfate IV. Qualifiers: GI bleed type/associated pathology: unspecified gastrointestinal hemorrhage type Qualified Code(s): K92.2 - Gastrointestinal hemorrhage, unspecified (2) S/P colectomy Current Visit: Yes Status: Chronic (3) Acute kidney failure Current Visit: Yes Status: Acute Secondary to poor fluid intake. See plan above. Qualifiers: Acute renal failure type: unspecified Qualified Code(s): N17.9 - Acute kidney failure, unspecified (4) Hypokalemia Current Visit: No Status: Acute Potassium level at 2.7. - 40 meq K-rider. Subjective Narrative: Patient admits to some nausea last night, but says it was controlled shortly afterwards with medication. She denies any nausea or vomiting right now. She denies any fever vernight. She denies any chest pain or shortness of breath. She admits to minor abdominal pain. Objective VITAL SIGNS: Reviewed. See [facility] GENERAL: no apparent distress. HEENT: [Normocephalic, PER, EOMi, oropharynx pink/moist, no JVD noted.] CV: b/l rad pulses 2+, RRR, no murmurs or gallops, no JVD RESPIRATORY: CTAB without wheezes, rales, or rhonchi ABD: soft, minor tenderness with deep palpation of periumbilical area, no rebound/guarding/rigidity, no peritoneal signs. Normal bowel sounds present. INCISION: clean, dry, intact without purulence/bleeding/edema/rubor/calor. Minor serous drainage. OSTOMY: [place] and moist. No signs of bleeding, pus, or drainage. Minor fecal output noted. EXTREMITY: grossly normal motor function, no pedal edema, peripheral pulses 2+ b /l NEUROLOGIC EXAM: AOx3, obeys commands, no speech deficits. PSYCHIATRIC: normal mood and affect SKIN: no gross lesions, rashes, or skin changes Vital Signs - Last 8 Hours Temp Pulse Resp BP Pulse Ox 11/11/17 07:24 98.3 F 65 16 115/53 96 11/11/17 03:35 69 11/11/17 03:04 97.8 F 70 16 94/59 98 Intake and Output 11/10/17 11/11/17 11/11/17 23:59 07:59 15:59 Intake Total 240 / 240 0 / 0 200 / 200 Output Total 2075 / 2075 350 / 350 Balance -1835 / -1835 -350 / -350 200 / 200 Intake: IV Fluids 0 / 0 Sodium Bicarbonate 150 MEQ In 0 / 0 Dextrose 5% 1,000 ML @ 75 mls/ hr IVC .[id number] [facility] Rx#: [id number] Oral 240 / 240 200 / 200 Output: Stool 675 / 675 Catheter 1400 / 1400 350 / 350 Other: Meal Dinner Breakfast Percent of Meal Consumed 5% 25% Stool Color Brown Green Weight 46.9 kg Blood Glucose* 136 115 Patient Weight 11/11/17 23:59 Weight 46.9 kg - Labs 11/11/17 00:36 11/11/17 06:21 Diabetes panel 11/10/17 11/10/17 11/11/17 Range/Units 11:35 17:50 00:36 Sodium 127 L 128 L 130 L (136-145) mEq/L Potassium 3.5 3.6 3.1 L (3.5-5.1) mEq/L Chloride 90 L 88 L 89 L (98-107) mEq/L Carbon Dioxide 23 27 30 H (23-29) mEq/L BUN 103 H 90 H 79 H (8-23) mg/dL Creatinine 6.12 H 5.21 H 4.29 H (0.60-1.20) mg/dL Glucose 102 142 H 135 H (70-105) mg/dL Calcium 8.7 8.4 L 8.2 L (8.6-10.3) mg/dL 11/11/17 Range/Units 06:21 Sodium 132 L (136-145) mEq/L Potassium 2.7 L (3.5-5.1) mEq/L Chloride 89 L (98-107) mEq/L Carbon Dioxide 32 H (23-29) mEq/L BUN 71 H (8-23) mg/dL Creatinine 3.58 H (0.60-1.20) mg/dL Glucose 106 H (70-105) mg/dL Calcium 8.1 L (8.6-10.3) mg/dL Calcium panel 11/10/17 11/10/17 11/11/17 Range/Units 11:35 17:50 00:36 Calcium 8.7 8.4 L 8.2 L (8.6-10.3) mg/dL Phosphorus (2.7-4.5) mg/dL 11/11/17 11/11/17 Range/Units 06:21 06:52 Calcium 8.1 L (8.6-10.3) mg/dL Phosphorus 4.5 (2.7-4.5) mg/dL Pituitary panel 11/10/17 11/10/17 11/11/17 Range/Units 11:35 17:50 00:36 Sodium 127 L 128 L 130 L (136-145) mEq/L Potassium 3.5 3.6 3.1 L (3.5-5.1) mEq/L Chloride 90 L 88 L 89 L (98-107) mEq/L Carbon Dioxide 23 27 30 H (23-29) mEq/L BUN 103 H 90 H 79 H (8-23) mg/dL Creatinine 6.12 H 5.21 H 4.29 H (0.60-1.20) mg/dL Glucose 102 142 H 135 H (70-105) mg/dL Calcium 8.7 8.4 L 8.2 L (8.6-10.3) mg/dL 11/11/17 Range/Units 06:21 Sodium 132 L (136-145) mEq/L Potassium 2.7 L (3.5-5.1) mEq/L Chloride 89 L (98-107) mEq/L Carbon Dioxide 32 H (23-29) mEq/L BUN 71 H (8-23) mg/dL Creatinine 3.58 H (0.60-1.20) mg/dL Glucose 106 H (70-105) mg/dL Calcium 8.1 L (8.6-10.3) mg/dL Adrenal panel 11/10/17 11/10/17 11/11/17 Range/Units 11:35 17:50 00:36 Sodium 127 L 128 L 130 L (136-145) mEq/L Potassium 3.5 3.6 3.1 L (3.5-5.1) mEq/L Chloride 90 L 88 L 89 L (98-107) mEq/L Carbon Dioxide 23 27 30 H (23-29) mEq/L BUN 103 H 90 H 79 H (8-23) mg/dL Creatinine 6.12 H 5.21 H 4.29 H (0.60-1.20) mg/dL Glucose 102 142 H 135 H (70-105) mg/dL Calcium 8.7 8.4 L 8.2 L (8.6-10.3) mg/dL 11/11/17 Range/Units 06:21 Sodium 132 L (136-145) mEq/L Potassium 2.7 L (3.5-5.1) mEq/L Chloride 89 L (98-107) mEq/L Carbon Dioxide 32 H (23-29) mEq/L BUN 71 H (8-23) mg/dL Creatinine 3.58 H (0.60-1.20) mg/dL Glucose 106 H (70-105) mg/dL Calcium 8.1 L (8.6-10.3) mg/dL - VTE Reasons for not Prescribing Prophylaxis: Medical contraindication (Active GI bleed/anemia) Documentation of Mechanical Device: Intermittent pneumatic compression device Consult Discharge Plan - Plan Referrals: Que Corley DO [Resident] - 11/21/17 10:15 am <Rafita Frazier - Last Filed: 11/13/17 09:50> Date of Encounter: 11/13/17 Objective Vital Signs - Last 8 Hours Temp Pulse Resp BP Pulse Ox 11/13/17 07:11 100 11/13/17 06:33 98.4 F 69 19 99/61 100 11/13/17 03:15 98.8 F 65 18 98/70 98 Intake and Output 11/12/17 11/13/17 11/13/17 23:59 07:59 15:59 Intake Total 1400 / 1400 0 / 0 360 / 360 Output Total 1050 / 1050 700 / 700 450 / 450 Balance 350 / 350 -700 / -700 -90 / -90 Intake: IV Fluids 1400 / 1400 0.9 % Sodium Chloride 1,000 ML 1000 / 1000 @ 75 mls/hr IVC .[id number] [facility] Rx #:[id number] Potassium Chloride 10 mEq/100mL 400 / 400 10 meq In 100 ml @ 100 mls/hr IVPB Q1H PRN Rx#:[id number] Oral 0 / 0 360 / 360 Output: Stool 450 / 450 550 / 550 450 / 450 Catheter 600 / 600 150 / 150 Other: Meal Breakfast Percent of Meal Consumed 30% Stool Size Moderate Stool Consistency liquid loose loose liquid Stool Color Brown Brown Brown Yellow Yellow Weight 48.2 kg 49.4 kg Blood Glucose* 116 Patient Weight 11/13/17 23:59 Weight 49.4 kg - Labs 11/13/17 04:00 11/13/17 08:00 Diabetes panel 11/12/17 11/13/17 11/13/17 Range/Units 17:18 04:00 08:00 Sodium 133 L (136-145) mEq/L Potassium 3.3 L 3.6 3.7 (3.5-5.1) mEq/L Chloride 105 (98-107) mEq/L Carbon Dioxide 26 (23-29) mEq/L BUN 26 H (8-23) mg/dL Creatinine 1.40 H (0.60-1.20) mg/dL Glucose 119 H (70-105) mg/dL Calcium 8.0 L (8.6-10.3) mg/dL Calcium panel 11/13/17 Range/Units 04:00 Calcium 8.0 L (8.6-10.3) mg/dL Phosphorus 1.5 L (2.7-4.5) mg/dL Pituitary panel 11/12/17 11/13/17 11/13/17 Range/Units 17:18 04:00 08:00 Sodium 133 L (136-145) mEq/L Potassium 3.3 L 3.6 3.7 (3.5-5.1) mEq/L Chloride 105 (98-107) mEq/L Carbon Dioxide 26 (23-29) mEq/L BUN 26 H (8-23) mg/dL Creatinine 1.40 H (0.60-1.20) mg/dL Glucose 119 H (70-105) mg/dL Calcium 8.0 L (8.6-10.3) mg/dL Adrenal panel 11/12/17 11/13/17 11/13/17 Range/Units : 04:00 08:00 Sodium 133 L (136-145) mEq/L Potassium 3.3 L 3.6 3.7 (3.5-5.1) mEq/L Chloride 105 (98-107) mEq/L Carbon Dioxide 26 (23-29) mEq/L BUN 26 H (8-23) mg/dL Creatinine 1.40 H (0.60-1.20) mg/dL Glucose 119 H (70-105) mg/dL Calcium 8.0 L (8.6-10.3) mg/dL - Attending Attestation patient seen and examined. i have reviewed all pertinent imaging, labs, and notes including this one. I agree with the above assessment and plan
--- NOTE | 2017-11-11 10:11 | Nephrology Progress Note ---
Date of Encounter: 11/11/17 Time of Encounter: 09:50 - Assessment and Plan (1) Acute kidney failure Current Visit: Yes Status: Acute JACQUIE/metabolic acidosis, hyperkalemia, hyponatremia in setting of decreased oral intake, GI losses, dehydration, hypotension. Renal fct improving. Creat 3.58. sodium 132, K 2.7, noted Krider ordered. Documented urine output 1720cc. Has indwelling Jane cath. Will change IV hydration to 0.9NS at 75 cc/hr. Avoid nephrotoxins, accurate I&O's. Will continue to monitor. Qualifiers: Acute renal failure type: unspecified Qualified Code(s): N17.9 - Acute kidney failure, unspecified Subjective Interval history: Laying quietly. States feeling better. No new complaints. Objective - Vital Signs Vital signs: Vital Signs Temp Pulse Resp BP Pulse Ox 11/11/17 07:24 98.3 F 65 16 115/53 96 11/11/17 03:35 69 11/11/17 03:04 97.8 F 70 16 94/59 98 11/10/17 23:36 64 11/10/17 23:26 98.5 F 85 16 95/51 98 11/10/17 20:02 60 11/10/17 19:28 98.0 F 64 17 107/62 100 11/10/17 16:52 98.0 F 62 18 104/56 100 11/10/17 11:24 97.9 F 58 18 97/52 99 Intake and Output 11/10/17 11/11/17 11/11/17 23:59 07:59 15:59 Intake Total 240 / 240 0 / 0 200 / 200 Output Total 5 / 2075 350 / 350 Balance -1835 / -1835 -350 / -350 200 / 200 Intake: IV Fluids 0 / 0 Sodium Bicarbonate 150 MEQ In 0 / 0 Dextrose 5% 1,000 ML @ 75 mls/ hr IVC .[id number] [facility] Rx#: [id number] Oral 240 / 240 200 / 200 Output: Stool 675 / 675 Catheter 1400 / 1400 350 / 350 Other: Meal Dinner Breakfast Percent of Meal Consumed 5% 25% Stool Color Brown Green Weight 46.9 kg Blood Glucose* 136 115 Patient Weight 11/11/17 23:59 Weight 46.9 kg - General Appearance General appearance: Present: well-developed, appears started age, frail EENT: Present: mucous membranes moist Neck: Present: no JVD Respiratory: Present: clear Cardiology: Present: no edema, regular rate, regular rhythm Gastrointestinal: Present: normoactive bowel sounds, no tenderness Additional Comments: colostomy Integumentary: Present: warm and dry Neurologic: Present: alert and oriented x3 - Lab 11/11/17 00:36 11/11/17 06:21 Most recent lab results Calcium 8.1 mg/dL (8.6-10.3) L 11/11/17 06:21 Phosphorus 4.5 mg/dL (2.7-4.5) 11/11/17 06:52 Magnesium 1.2 mg/dL (1.6-2.6) L 11/11/17 06:52 - VTE Reasons for not Prescribing Prophylaxis: Medical contraindication (Active GI bleed/anemia) Documentation of Mechanical Device: Intermittent pneumatic compression device Consult Discharge Plan - Plan Referrals: Ghanshyam Taylor [Primary Care Provider] -
[2017-11-11] MEDS: 0.9 % Sodium Chloride 1,000 ML IVC SCH (11:45)
[2017-11-11] MEDS: *HR* OxyCODONE Immed Rel 5 MG TABLET PO PRN ×2 (11:46→20:56)
--- NOTE | 2017-11-11 16:22 | Internal Med Progress Note ---
Date of Encounter: 11/11/17 Time of Encounter: 16:19 - Assessment and plan (1) GI bleed Current Visit: Yes Status: Acute Assessment and plan: No blood in colostomy bag at this time. Hemoglobin stable. Continue IV protonix BID. Recheck CBC in AM; transfuse as necessary with goal Hgb > 7.0. General surgery consulted; appreciate input. Plan for reimaging and possible reversal of colostomy after medically stable. Qualifiers: GI bleed type/associated pathology: unspecified gastrointestinal hemorrhage type Qualified Code(s): K92.2 - Gastrointestinal hemorrhage, unspecified (2) Hyperkalemia Current Visit: Yes Status: Resolved Assessment and plan: Resolved. Now hypokalemic. Nephrology consulted; appreciate input. Replete KCl today. Continue telemetry. Repeat BMP in AM. (3) Hyponatremia Current Visit: Yes Status: Acute Assessment and plan: Improved. Nephrology consulted; appreciate input. Switched to IV NS today. Recheck BMP in AM. (4) Acute kidney failure Current Visit: Yes Status: Acute Assessment and plan: Improved. Nephrology consulted; appreciate input. Switched to IV NS today. Recheck BMP in AM. Qualifiers: Acute renal failure type: unspecified Qualified Code(s): N17.9 - Acute kidney failure, unspecified (5) Abdominal pain Current Visit: Yes Status: Resolved Assessment and plan: Resolved. Pain control. General surgery consulted; appreciate input. Qualifiers: Abdominal location: generalized Qualified Code(s): R10.84 - Generalized abdominal pain (6) Metabolic acidosis Current Visit: Yes Status: Acute Assessment and plan: Improved. Nephrology consulted; appreciate input. Switched to IV NS today. Recheck BMP in AM. (7) Hepatitis C Current Visit: Yes Status: Chronic Assessment and plan: Continue management as outpatient. Qualifiers: Viral hepatitis chronicity: chronic Hepatic coma status: without hepatic coma Qualified Code(s): B18.2 - Chronic viral hepatitis C (8) Essential hypertension Current Visit: Yes Status: Chronic Assessment and plan: Hypotension improved. Continue fluid resuscitation. Monitor vitals closely. (9) S/P colectomy Current Visit: Yes Status: Chronic Assessment and plan: General surgery consulted; appreciate input. (10) Poor fluid intake Current Visit: Yes Status: Resolved Assessment and plan: Resolved. Management as per above. Continue diet as tolerated. (11) DVT prophylaxis Current Visit: Yes Status: Acute Assessment and plan: No anticoagulation due to GI bleed and anemia. Continue SCDs. - Time Spent With Patient Total time spent is greater than 50% in coordination of care (as documented) at patient's floor/unit and/or counseling patient: less than 15 minutes - Subjective Interval history: Patient had no acute events overnight. She states that she is doing well today. She is tolerating diet. Nursing staff reported some issues earlier with keeping colostomy bag on. Colostomy output looks normal without signs of red blood or black stool. She denies abdominal pain, nausea, or vomiting at this time. She denies fever, chills, chest pain, and SOB. She has no complaints at this time. - Constitutional Vitals: Temp Pulse Resp BP Pulse Ox 98.3 F 64 17 104/59 97 11/11/17 11:35 11/11/17 11:35 11/11/17 11:35 11/11/17 11:35 11/11/17 11:35 General appearance: Present: cooperative, A&O X 3, pleasant, no acute distress, answers questions appropriately - Respiratory Respiratory exam: Present: CTAB. Absent: accessory muscle use, rales, rhonchi, wheezes Additional comments: Normal WOB - Cardiovascular Cardiovascular exam: Present: RRR, +S1, +S2. Absent: diastolic murmur, gallop, rubs, systolic murmur Additional comments: No BLE edema - GI/Abdominal GI/Abdominal exam: Present: normal bowel sounds, soft. Absent: distended, hepatomegaly, mass, splenomegaly, tenderness Additional comments: Colostomy bag in place with brown stool - Psychiatric Psychiatric exam: Present: normal affect, normal mood. Absent: agitated, anxious, depressed - Skin Skin exam: Present: dry, intact, warm. Absent: cyanosis, rash Additional comments: Vertical abdominal incision with bandage covering it Internal Medicine: Result - Labs CBC & Chem 7: 11/11/17 00:36 11/11/17 06:21 Labs: Short CBC 11/11/17 Range/Units 00:36 WBC 4.4 D (4.3-11.1) K/mcL Hgb 9.9 L (11.5-15.4) g/dL Hct 27.4 L (35.3-44.9) % Plt Count 54 L (140-400) K/mcL Neutrophils # 2.4 (1.6-8.9) K/mcL BMP 11/10/17 11/11/17 11/11/17 17:50 00:36 06:21 Sodium 128 L 130 L 132 L Potassium 3.6 3.1 L 2.7 L Chloride 88 L 89 L 89 L Carbon Dioxide 27 30 H 32 H BUN 90 H 79 H 71 H Creatinine 5.21 H 4.29 H 3.58 H Glucose 142 H 135 H 106 H Calcium 8.4 L 8.2 L 8.1 L - ABG Interpretation ABG results: PT/INR, D-dimer PT 14.2 Seconds (9.4-12.1) H 11/09/17 16:13 - VTE Reasons for not Prescribing Prophylaxis: Medical contraindication (Active GI bleed/anemia) Documentation of Mechanical Device: Intermittent pneumatic compression device Consult Discharge Plan - Plan Referrals: Que Corley DO [Resident] - 11/21/17 10:15 am
[2017-11-12] MEDS: Ondansetron 4 MG/2 ML VIAL IVP PRN (03:40)
[2017-11-12 05:25] LABS: Basophils % 0.4 %; Mean Corpuscular HGB Conc 34.8 g/dL (31.6-35.5); Mean Corpuscular Hemoglobin 31.8 pg (28.0-33.3); Red Cell Distribution Width 13.8 % (11.5-14.5); Segmented Neutrophils % 54.6 %
[2017-11-12 05:27] LABS: Eosinophils # 0.1 K/mcL (0.0-0.6); Eosinophils % 0.9 %; Hematocrit 27.6 % (35.3-44.9); Hemoglobin 9.6 g/dL (11.5-15.4); Immature Granulocytes % 0.6 % (0-4); Immature Platelets 8.4 % (1.1-6.1); Lymphocytes # 1.6 K/mcL (0.6-4.6); Lymphocytes % 30.2 %; Mean Corpuscular Volume 91.4 fL (83.0-100.0); Mean Platelet Volume 12.2 fL (9.4-12.4); Monocytes # 0.7 K/mcL (0.0-1.3); Monocytes % 13.3 %; Neutrophils # 2.9 K/mcL (1.6-8.9); Red Blood Count 3.02 M/mcL (3.82-4.97)
[2017-11-12 05:38] LABS: Calcium 8.3 mg/dL (8.6-10.3); Potassium 2.7 mEq/L (3.5-5.1)
[2017-11-12 05:39] LABS: Platelet Count 53 K/mcL (140-400)
[2017-11-12] MEDS: Pantoprazole 40 MG VIAL IVP SCH ×2 (05:45→17:20)
--- NOTE | 2017-11-12 09:11 | General Surgery Progress Note ---
Date of Encounter: 11/12/17 Time of Encounter: 07:00 - Assessment and Plan (1) GI bleed Current Visit: Yes Status: Acute 7 weeks s/p sigmoidectomy with diverting ileostomy. Presents for high ileostomy output and GI bleed. Hospital Day #4 Patient's JACQUIE is continuing to imporve. She had a creatinine of 9.05 on admission, yesterday at 3.58 and today at 2.06. BUN has decreased from 71 down to 47. Metabolic Acidosis improving, HCO3 at 33 today. No bleeding from ostomy since her admission here. Hgb stable at 9.6 (yesterday at 9.9). Her pain is well managed. Able to tolerate her regular diet. Plan is to continue to restore patient's kidney function back to baseline per recommendations from nephrology and replenish her electrolytes. Once this is complete, we will plan for contrast study of the anastamosis as well as an EGD and push enteroscopy if those studies show no issues, then we will plan for takedown of her ileostomy while inpatient. - Continue IV fluids. - Management of electrolytes per nephrology. - Diet as tolerated. - Paln for EGD + contrast next week. - Possible ileostomy takedown on Tuesday (11/18/17) Qualifiers: GI bleed type/associated pathology: unspecified gastrointestinal hemorrhage type Qualified Code(s): K92.2 - Gastrointestinal hemorrhage, unspecified (2) S/P colectomy Current Visit: Yes Status: Chronic (3) Acute kidney failure Current Visit: Yes Status: Acute Secondary to poor fluid intake. See plan above. Qualifiers: Acute renal failure type: unspecified Qualified Code(s): N17.9 - Acute kidney failure, unspecified (4) Hypokalemia Current Visit: No Status: Acute Potassium level at 2.7. - Management per nephrology. Subjective Narrative: Patient says that she has decreased abdominal pain compared to yesterday. She admits to some nausea last night but denies any vomiting. She denies any chest pain or SOB. Denies any fever overnight. Was was able to hand her regular diet. Objective VITAL SIGNS: Reviewed. See [facility] GENERAL: no apparent distress. HEENT: [Normocephalic, PER, EOMI, oropharynx pink/moist, no JVD noted.] CV: b/l rad pulses 2+, RRR, no murmurs or gallops, no JVD RESPIRATORY: CTAB without wheezes, rales, or rhonchi ABD: soft, non-tender, no rebound/guarding/rigidity, no peritoneal signs. Normal bowel sounds. INCISION: clean, dry, intact without purulence/bleeding/edema/rubor/calor. Minor serous drainage. OSTOMY: Feval output evident. Patent, pink, and moist. No signs of erythema, pus , or infection. EXTREMITY: grossly normal motor function, no pedal edema, peripheral pulses 2+ b /l NEUROLOGIC EXAM: AOx3, obeys commands, no speech deficits. PSYCHIATRIC: normal mood and affect SKIN: no gross lesions, rashes, or skin changes Vital Signs - Last 8 Hours Temp Pulse Resp BP Pulse Ox 11/12/17 07:18 98.1 F 69 14 93/56 100 11/12/17 04:37 63 16 97 11/12/17 03:31 98.0 F 66 16 91/46 97 Intake and Output 11/11/17 11/12/17 11/12/17 23:59 07:59 15:59 Intake Total 120 / 120 350 / 350 Output Total 300 / 300 600 / 600 Balance -180 / -180 -250 / -250 Intake: Oral 120 / 120 350 / 350 Output: Stool 300 / 300 Catheter 300 / 300 300 / 300 Other: Meal Dinner Percent of Meal Consumed 90% Stool Color Brown Yellow Blood Glucose* 131 93 - Labs 11/12/17 04:00 11/12/17 04:00 Diabetes panel 11/12/17 Range/Units 04:00 Sodium 134 L (136-145) mEq/L Potassium 2.7 L (3.5-5.1) mEq/L Chloride 96 L (98-107) mEq/L Carbon Dioxide 33 H (23-29) mEq/L BUN 47 H (8-23) mg/dL Creatinine 2.06 H (0.60-1.20) mg/dL Glucose 113 H (70-105) mg/dL Calcium 8.3 L (8.6-10.3) mg/dL Calcium panel 11/12/17 Range/Units 04:00 Calcium 8.3 L (8.6-10.3) mg/dL Pituitary panel 11/12/17 Range/Units 04:00 Sodium 134 L (136-145) mEq/L Potassium 2.7 L (3.5-5.1) mEq/L Chloride 96 L (98-107) mEq/L Carbon Dioxide 33 H (23-29) mEq/L BUN 47 H (8-23) mg/dL Creatinine 2.06 H (0.60-1.20) mg/dL Glucose 113 H (70-105) mg/dL Calcium 8.3 L (8.6-10.3) mg/dL Adrenal panel 11/12/17 Range/Units 04:00 Sodium 134 L (136-145) mEq/L Potassium 2.7 L (3.5-5.1) mEq/L Chloride 96 L (98-107) mEq/L Carbon Dioxide 33 H (23-29) mEq/L BUN 47 H (8-23) mg/dL Creatinine 2.06 H (0.60-1.20) mg/dL Glucose 113 H (70-105) mg/dL Calcium 8.3 L (8.6-10.3) mg/dL - VTE Reasons for not Prescribing Prophylaxis: Medical contraindication (Active GI bleed/anemia) Documentation of Mechanical Device: Intermittent pneumatic compression device Consult Discharge Plan - Plan Referrals: Que Corley DO [Resident] - 11/21/17 10:15 am
--- NOTE | 2017-11-12 09:30 | Nephrology Progress Note ---
Date of Encounter: 11/12/17 Time of Encounter: 09:20 - Assessment and Plan (1) Acute kidney failure Current Visit: Yes Status: Acute JACQUIE/metabolic acidosis, hyperkalemia, hyponatremia in setting of decreased oral intake, GI losses, dehydration, hypotension. Renal fct improving. Creat 2.06. sodium 134, K 2.9, noted K rider ordered. Documented urine output 1000cc. Has indwelling Jane cath. Will change IV hydration to 0.9NS at 75 cc/hr. Avoid nephrotoxins, accurate I&O's. Will continue to monitor. Qualifiers: Acute renal failure type: unspecified Qualified Code(s): N17.9 - Acute kidney failure, unspecified Subjective Interval history: Laying quietly. States feeling better. No new complaints. Objective - Vital Signs Vital signs: Vital Signs Temp Pulse Resp BP Pulse Ox 11/12/17 07:18 98.1 F 69 14 93/56 100 11/12/17 04:37 63 16 97 11/12/17 03:31 98.0 F 66 16 91/46 97 11/12/17 01:00 62 11/12/17 00:26 98.1 F 61 16 91/53 98 11/11/17 19:54 62 11/11/17 19:41 98.1 F 67 16 92/50 97 11/11/17 16:39 98.2 F 64 18 102/57 98 11/11/17 11:35 98.3 F 64 17 104/59 97 Intake and Output 11/11/17 11/12/17 11/12/17 23:59 07:59 15:59 Intake Total 120 / 120 350 / 350 Output Total 300 / 300 600 / 600 Balance -180 / -180 -250 / -250 Intake: Oral 120 / 120 350 / 350 Output: Stool 300 / 300 Catheter 300 / 300 300 / 300 Other: Meal Dinner Percent of Meal Consumed 90% Stool Color Brown Yellow Blood Glucose* 131 93 - General Appearance General appearance: Present: well-developed, appears started age, frail EENT: Present: mucous membranes moist Neck: Present: no JVD Respiratory: Present: clear Cardiology: Present: no edema, regular rate, regular rhythm Gastrointestinal: Present: hypoactive bowel sounds, no tenderness Integumentary: Present: warm and dry Neurologic: Present: alert and oriented x3 - Lab 11/12/17 04:00 06/02/18 04:00 Most recent lab results Calcium 8.3 mg/dL (8.6-10.3) L 11/12/17 04:00 Phosphorus 4.5 mg/dL (2.7-4.5) 11/11/17 06:52 Magnesium 1.2 mg/dL (1.6-2.6) L 11/11/17 06:52 - VTE Reasons for not Prescribing Prophylaxis: Medical contraindication (Active GI bleed/anemia) Documentation of Mechanical Device: Intermittent pneumatic compression device Consult Discharge Plan - Plan Referrals: Que Corley DO [Resident] - 11/21/17 10:15 am
[2017-11-12] MEDS: 0.9 % Sodium Chloride 1,000 ML IVC SCH ×2 (09:53→23:19)
[2017-11-12] MEDS: *HR* OxyCODONE Immed Rel 5 MG TABLET PO PRN ×2 (11:59→18:27)
--- NOTE | 2017-11-12 15:33 | Internal Med Progress Note ---
Date of Encounter: 11/12/17 Time of Encounter: 15:31 - Assessment and plan (1) GI bleed Current Visit: Yes Status: Acute Assessment and plan: Bleeding resolved. No blood in colostomy bag at this time. Hemoglobin stable. Continue IV protonix BID. Recheck CBC in AM; transfuse as necessary with goal Hgb > 7.0. General surgery consulted; appreciate input. Plan for reimaging and possible reversal of colostomy after medically stable. Qualifiers: GI bleed type/associated pathology: unspecified gastrointestinal hemorrhage type Qualified Code(s): K92.2 - Gastrointestinal hemorrhage, unspecified (2) Hyperkalemia Current Visit: Yes Status: Resolved Assessment and plan: Resolved. Now hypokalemic. (3) Hypokalemia Current Visit: No Status: Acute Assessment and plan: Nephrology consulted; appreciate input. Nephrology repleting potassium today. Continue telemetry. Repeat BMP in AM. (4) Hyponatremia Current Visit: Yes Status: Acute Assessment and plan: Improved. Nephrology consulted; appreciate input. Continue IV NS as management by nephrology. Recheck BMP in AM. (5) Acute kidney failure Current Visit: Yes Status: Acute Assessment and plan: Improved. Nephrology consulted; appreciate input. Continue IV NS as managed by nephrology. Recheck BMP in AM. Qualifiers: Acute renal failure type: unspecified Qualified Code(s): N17.9 - Acute kidney failure, unspecified (6) Abdominal pain Current Visit: Yes Status: Resolved Assessment and plan: Resolved. Pain control. General surgery consulted; appreciate input. Qualifiers: Abdominal location: generalized Qualified Code(s): R10.84 - Generalized abdominal pain (7) Metabolic acidosis Current Visit: Yes Status: Acute Assessment and plan: Improved. Nephrology consulted; appreciate input. Continue IV NS as managed by nephrology. Recheck BMP in AM. (8) Hepatitis C Current Visit: Yes Status: Chronic Assessment and plan: Continue management as outpatient. Qualifiers: Viral hepatitis chronicity: chronic Hepatic coma status: without hepatic coma Qualified Code(s): B18.2 - Chronic viral hepatitis C (9) Essential hypertension Current Visit: Yes Status: Chronic Assessment and plan: Hypotension improved. Continue fluid resuscitation. Monitor vitals closely. (10) S/P colectomy Current Visit: Yes Status: Chronic Assessment and plan: General surgery consulted; appreciate input. (11) Poor fluid intake Current Visit: Yes Status: Resolved Assessment and plan: Resolved. Management as per above. Continue diet as tolerated. (12) DVT prophylaxis Current Visit: Yes Status: Acute Assessment and plan: No anticoagulation due to GI bleed and anemia. Continue SCDs. - Time Spent With Patient Total time spent is greater than 50% in coordination of care (as documented) at patient's floor/unit and/or counseling patient: less than 15 minutes - Subjective Interval history: Patient had no acute events overnight. She states that she is doing well today. She is tolerating diet. Nursing staff reported some abdominal pain earlier. Colostomy output looks normal without signs of red blood or black stool. She denies abdominal pain, nausea, or vomiting at this time. She denies fever, chills, chest pain, and SOB. She has no complaints at this time. - Constitutional Vitals: Temp Pulse Resp BP Pulse Ox 98.5 F 60 16 108/61 100 11/12/17 10:50 11/12/17 12:00 11/12/17 12:00 11/12/17 12:00 11/12/17 12:00 General appearance: Present: cooperative, A&O X 3, pleasant, no acute distress, answers questions appropriately - Respiratory Respiratory exam: Present: CTAB. Absent: accessory muscle use, rales, rhonchi, wheezes Additional comments: Normal WOB - Cardiovascular Cardiovascular exam: Present: RRR, +S1, +S2. Absent: diastolic murmur, gallop, rubs, systolic murmur Additional comments: No BLE edema - GI/Abdominal GI/Abdominal exam: Present: normal bowel sounds, soft, tenderness (Mild TTP diffusely across abdomen). Absent: distended, hepatomegaly, mass, splenomegaly Additional comments: Colostomy bag in place with brown stool - Psychiatric Psychiatric exam: Present: normal affect, normal mood. Absent: agitated, anxious, depressed - Skin Skin exam: Present: dry, intact, warm. Absent: cyanosis, rash Internal Medicine: Result - Labs CBC & Chem 7: 11/12/17 04:00 11/12/17 04:00 Labs: Short CBC 11/12/17 Range/Units 04:00 WBC 5.3 (4.3-11.1) K/mcL Hgb 9.6 L (11.5-15.4) g/dL Hct 27.6 L (35.3-44.9) % Plt Count 53 L (140-400) K/mcL Neutrophils # 2.9 (1.6-8.9) K/mcL BMP 11/12/17 04:00 Sodium 134 L Potassium 2.7 L Chloride 96 L Carbon Dioxide 33 H BUN 47 H Creatinine 2.06 H Glucose 113 H Calcium 8.3 L - ABG Interpretation ABG results: PT/INR, D-dimer PT 14.2 Seconds (9.4-12.1) H 11/09/17 16:13 - VTE Reasons for not Prescribing Prophylaxis: Medical contraindication (Active GI bleed/anemia) Documentation of Mechanical Device: Intermittent pneumatic compression device Consult Discharge Plan - Plan Referrals: Que Corley DO [Resident] - 11/21/17 10:15 am
[2017-11-12] MEDS: *HR* HYDROcodone/Acet 5/325 mg TABLET PO PRN (19:33)
[2017-11-13] MEDS: *HR* OxyCODONE Immed Rel 5 MG TABLET PO PRN ×2 (00:59→09:30)
[2017-11-13 04:26] LABS: Basophils % 0.4 %
[2017-11-13 04:28] LABS: Eosinophils # 0.1 K/mcL (0.0-0.6); Eosinophils % 1.6 %; Hematocrit 27.8 % (35.3-44.9); Hemoglobin 9.3 g/dL (11.5-15.4); Immature Granulocytes % 0.2 % (0-4); Immature Platelets 9.3 % (1.1-6.1); Lymphocytes # 1.6 K/mcL (0.6-4.6); Lymphocytes % 32.6 %; Mean Corpuscular HGB Conc 33.5 g/dL (31.6-35.5); Mean Corpuscular Hemoglobin 31.7 pg (28.0-33.3); Mean Corpuscular Volume 94.9 fL (83.0-100.0); Mean Platelet Volume 12.5 fL (9.4-12.4); Monocytes # 0.6 K/mcL (0.0-1.3); Monocytes % 11.7 %; Neutrophils # 2.6 K/mcL (1.6-8.9); Nucleated Red Blood Cells 0.4 /100 WBC (0); Red Blood Count 2.93 M/mcL (3.82-4.97); Red Cell Distribution Width 13.8 % (11.5-14.5); Segmented Neutrophils % 53.5 %
[2017-11-13 04:40] LABS: Platelet Count 45 K/mcL (140-400)
[2017-11-13 04:43] LABS: Potassium 3.6 mEq/L (3.5-5.1)
[2017-11-13] MEDS: Pantoprazole 40 MG VIAL IVP SCH ×2 (05:43→17:43)
[2017-11-13 06:25] LABS: Magnesium 1.3 mg/dL (1.6-2.6); Phosphorous 1.5 mg/dL (2.7-4.5)
--- NOTE | 2017-11-13 08:39 | Nephrology Progress Note ---
Date of Encounter: 11/13/17 Time of Encounter: 08:15 - Assessment and Plan (1) Acute kidney failure Current Visit: Yes Status: Acute JACQUIE/metabolic acidosis, hyperkalemia, hyponatremia in setting of decreased oral intake, GI losses, dehydration, hypotension. Renal fct improving. Creat 1.40. sodium 133, K 3.6. Documented urine output 900cc. Has indwelling Jane cath. colostomy output 1050cc. Will continue IV hydration to 0.9NS at 75 cc/hr. Avoid nephrotoxins, accurate I&O's. Will continue to monitor. Qualifiers: Acute renal failure type: unspecified Qualified Code(s): N17.9 - Acute kidney failure, unspecified Subjective Interval history: Laying quietly. States feeling better. Ate partial breakfast. No new complaints. Objective - Vital Signs Vital signs: Vital Signs Temp Pulse Resp BP Pulse Ox 11/13/17 07:11 100 11/13/17 06:33 98.4 F 69 19 99/61 100 11/13/17 03:15 98.8 F 65 18 98/70 98 11/12/17 23:46 97.8 F 66 20 104/59 96 11/12/17 18:27 98.2 F 77 20 120/73 93 11/12/17 16:55 98.0 F 62 19 110/74 94 11/12/17 12:00 60 16 108/61 100 11/12/17 10:50 98.5 F 63 16 90/78 99 11/12/17 09:00 100 Intake and Output 11/12/17 11/13/17 11/13/17 23:59 07:59 15:59 Intake Total 1400 / 1400 0 / 0 Output Total 1050 / 1050 700 / 700 Balance 350 / 350 -700 / -700 Intake: IV Fluids 1400 / 1400 0.9 % Sodium Chloride 1,000 ML 1000 / 1000 @ 75 mls/hr IVC .[id number] [facility] Rx #:[id number] Potassium Chloride 10 mEq/100mL 400 / 400 10 meq In 100 ml @ 100 mls/hr IVPB Q1H PRN Rx#:[id number] Oral 0 / 0 Output: Stool 450 / 450 550 / 550 Catheter 600 / 600 150 / 150 Other: Stool Size Moderate Stool Consistency liquid loose liquid Stool Color Brown Brown Yellow Weight 48.2 kg 49.4 kg Blood Glucose* 116 Patient Weight 11/13/17 23:59 Weight 49.4 kg - General Appearance General appearance: Present: well-developed, appears started age, frail EENT: Present: mucous membranes moist Neck: Present: no JVD Respiratory: Present: clear Cardiology: Present: no edema, regular rate, regular rhythm Gastrointestinal: Present: normoactive bowel sounds, no tenderness Integumentary: Present: warm and dry Neurologic: Present: alert and oriented x3 - Lab 11/13/17 04:00 11/13/17 04:00 Most recent lab results Calcium 8.0 mg/dL (8.6-10.3) L 11/13/17 04:00 Phosphorus 1.5 mg/dL (2.7-4.5) L 11/13/17 04:00 Magnesium 1.3 mg/dL (1.6-2.6) L 11/13/17 04:00 - VTE Reasons for not Prescribing Prophylaxis: Medical contraindication (Active GI bleed/anemia) Documentation of Mechanical Device: Intermittent pneumatic compression device Consult Discharge Plan - Plan Referrals: Que Corley DO [Resident] - 11/21/17 10:15 am
[2017-11-13] MEDS ORDERED: Saline Nasal Spray 44 ML BOTTLE NS PRN (11:43)
[2017-11-13] MEDS: 0.9 % Sodium Chloride 1,000 ML IVC SCH (12:56)
--- NOTE | 2017-11-13 12:57 | Internal Med Progress Note ---
Date of Encounter: 11/13/17 Time of Encounter: 12:55 - Assessment and plan (1) GI bleed Current Visit: Yes Status: Acute Assessment and plan: Bleeding resolved. No blood in colostomy bag at this time. Hemoglobin stable. Continue IV protonix BID. Recheck CBC in AM; transfuse as necessary with goal Hgb > 7.0. General surgery consulted; appreciate input. Plan for reimaging and possible reversal of colostomy after medically stable. Qualifiers: GI bleed type/associated pathology: unspecified gastrointestinal hemorrhage type Qualified Code(s): K92.2 - Gastrointestinal hemorrhage, unspecified (2) Hyperkalemia Current Visit: Yes Status: Resolved Assessment and plan: Resolved. (3) Hypokalemia Current Visit: Yes Status: Resolved Assessment and plan: Resolved. Nephrology consulted; appreciate input. Nephrology repleting potassium as necessary. Continue telemetry. Repeat BMP in AM. (4) Hyponatremia Current Visit: Yes Status: Acute Assessment and plan: Improved. Nephrology consulted; appreciate input. Continue IV NS as management by nephrology. Recheck BMP in AM. (5) Acute kidney failure Current Visit: Yes Status: Acute Assessment and plan: Improved. Nephrology consulted; appreciate input. Continue IV NS as managed by nephrology. Recheck BMP in AM. Qualifiers: Acute renal failure type: unspecified Qualified Code(s): N17.9 - Acute kidney failure, unspecified (6) Abdominal pain Current Visit: Yes Status: Acute Assessment and plan: Some increased pain today. Continue pain control. General surgery consulted; appreciate input. Qualifiers: Abdominal location: generalized Qualified Code(s): R10.84 - Generalized abdominal pain (7) Metabolic acidosis Current Visit: Yes Status: Acute Assessment and plan: Improved. Nephrology consulted; appreciate input. Continue IV NS as managed by nephrology. Recheck BMP in AM. (8) Hepatitis C Current Visit: Yes Status: Chronic Assessment and plan: Continue management as outpatient. Qualifiers: Viral hepatitis chronicity: chronic Hepatic coma status: without hepatic coma Qualified Code(s): B18.2 - Chronic viral hepatitis C (9) Essential hypertension Current Visit: Yes Status: Chronic Assessment and plan: Hypotension improved. Continue fluid resuscitation. Monitor vitals closely. (10) S/P colectomy Current Visit: Yes Status: Chronic Assessment and plan: General surgery consulted; appreciate input. (11) Poor fluid intake Current Visit: Yes Status: Resolved Assessment and plan: Resolved. Management as per above. Continue diet as tolerated. (12) DVT prophylaxis Current Visit: Yes Status: Acute Assessment and plan: No anticoagulation due to GI bleed and anemia. Continue SCDs. - Time Spent With Patient Total time spent is greater than 50% in coordination of care (as documented) at patient's floor/unit and/or counseling patient: less than 15 minutes - Subjective Interval history: Patient had no acute events overnight. She states that she is doing well today. She is tolerating diet. She reports some abdominal pain today. Colostomy output looks normal without signs of red blood or black stool. She denies abdominal pain, nausea, or vomiting at this time. She denies fever, chills, chest pain, and SOB. She has no other complaints at this time. - Constitutional Vitals: Temp Pulse Resp BP Pulse Ox 97.6 F 70 19 112/57 97 11/13/17 11:10 11/13/17 11:10 11/13/17 11:10 11/13/17 11:10 11/13/17 11:10 General appearance: Present: cooperative, A&O X 3, pleasant, no acute distress, answers questions appropriately - Respiratory Respiratory exam: Present: CTAB. Absent: accessory muscle use, rales, rhonchi, wheezes Additional comments: Normal WOB - Cardiovascular Cardiovascular exam: Present: RRR, +S1, +S2. Absent: diastolic murmur, gallop, rubs, systolic murmur Additional comments: No BLE edema - GI/Abdominal GI/Abdominal exam: Present: normal bowel sounds, soft, tenderness (mild TTP diffusely across abdomen). Absent: distended, hepatomegaly, mass, splenomegaly Additional comments: Colostomy back in place with brown stool - Psychiatric Psychiatric exam: Present: normal affect, normal mood. Absent: agitated, anxious, depressed - Skin Skin exam: Present: dry, intact, warm. Absent: cyanosis, rash Internal Medicine: Result - Labs CBC & Chem 7: 11/13/17 04:00 11/13/17 08:00 Labs: Short CBC 11/13/17 Range/Units 04:00 WBC 4.9 (4.3-11.1) K/mcL Hgb 9.3 L (11.5-15.4) g/dL Hct 27.8 L (35.3-44.9) % Plt Count 45 L (140-400) K/mcL Neutrophils # 2.6 (1.6-8.9) K/mcL BMP 11/12/17 11/13/17 11/13/17 17:18 04:00 08:00 Sodium 133 L Potassium 3.3 L 3.6 3.7 Chloride 105 Carbon Dioxide 26 BUN 26 H Creatinine 1.40 H Glucose 119 H Calcium 8.0 L - ABG Interpretation ABG results: PT/INR, D-dimer PT 14.2 Seconds (9.4-12.1) H 11/09/17 16:13 - VTE Reasons for not Prescribing Prophylaxis: Medical contraindication (Active GI bleed/anemia) Documentation of Mechanical Device: Intermittent pneumatic compression device Consult Discharge Plan - Plan Referrals: Que Corley DO [Resident] - 11/21/17 10:15 am
[2017-11-13] MEDS: OXYCODONE Oral CONC 10 MG/0.5 ML ORAL.SYG SL PRN ×2 (17:43→20:18)
[2017-11-13] MEDS: *HR* HYDROcodone/Acet 5/325 mg TABLET PO PRN (23:09)
[2017-11-14] MEDS: 0.9 % Sodium Chloride 1,000 ML IVC SCH ×3 (02:19→17:06)
[2017-11-14] MEDS: OXYCODONE Oral CONC 10 MG/0.5 ML ORAL.SYG SL PRN ×4 (03:17→22:16)
[2017-11-14 03:46] LABS: Hemoglobin 8.8 g/dL (11.5-15.4); Immature Granulocytes % 0.2 % (0-4); Red Cell Distribution Width 13.7 % (11.5-14.5)
[2017-11-14 03:48] LABS: Basophils % 0.4 %; Eosinophils # 0.2 K/mcL (0.0-0.6); Eosinophils % 3.4 %; Hematocrit 25.8 % (35.3-44.9); Immature Platelets 8.6 % (1.1-6.1); Lymphocytes # 1.5 K/mcL (0.6-4.6); Lymphocytes % 27.2 %; Mean Corpuscular HGB Conc 34.1 g/dL (31.6-35.5); Mean Corpuscular Volume 93.8 fL (83.0-100.0); Monocytes # 0.6 K/mcL (0.0-1.3); Monocytes % 10.8 %; Neutrophils # 3.1 K/mcL (1.6-8.9); Red Blood Count 2.75 M/mcL (3.82-4.97)
[2017-11-14 03:52] LABS: Platelet Count 34 K/mcL (140-400)
[2017-11-14 04:05] LABS: BUN/Creatinine Ratio 15 (6-26); Blood Urea Nitrogen 15 mg/dL (8-23); Calcium 7.8 mg/dL (8.6-10.3); Carbon Dioxide 21 mEq/L (23-29); Chloride 109 mEq/L (98-107); Glucose 98 mg/dL (70-105); Osmolality,Calculated 277 (280-300); Potassium 3.7 mEq/L (3.5-5.1); Sodium 133 mEq/L (136-145); eGFR For African Americans > 60 (> 60); eGFR For Non-African Americans 56 (> 60)
[2017-11-14] MEDS: Pantoprazole 40 MG VIAL IVP SCH ×2 (05:16→17:07)
--- NOTE | 2017-11-14 08:26 | Event Note ---
Date of Encounter: 11/14/17 Time of Encounter: 08:25 The patient's renal function has returned to normal. Nephrology will sign off. Please call again if needed.
--- NOTE | 2017-11-14 09:07 | General Surgery Progress Note ---
Date of Encounter: 11/14/17 Time of Encounter: 09:06 - Assessment and Plan (1) Dehydration Current Visit: Yes Status: Acute 62F s/p sigmoid colectomy with diverting loop ileostomy, s/p cholecystectomy readmitted 2/2 dehydration from inability to keep up with ileostomy output; JACQUIE significantly improved; plan for lower GI contrast study replete lytes okay to transfer plan for reversal this week pending results of contrast study Subjective Patient reports: no new complaints Objective Vital Signs - Last 8 Hours Temp Pulse Resp BP Pulse Ox 11/14/17 06:59 98.0 F 65 18 110/57 100 11/14/17 04:24 98.2 F 87 20 112/82 98 Intake and Output 11/13/17 11/14/17 11/14/17 23:59 07:59 15:59 Intake Total 150 / 150 1000 / 1000 Output Total 775 / 775 750 / 750 300 / 300 Balance -625 / -625 250 / 250 -300 / -300 Intake: IV Fluids 1000 / 1000 0.9 % Sodium Chloride 1,000 ML 1000 / 1000 @ 75 mls/hr IVC .[id number] [facility] Rx #:[id number] Oral 150 / 150 Output: Urine 100 / 100 Stool 400 / 400 600 / 600 200 / 200 Catheter 375 / 375 150 / 150 Other: Meal Dinner Percent of Meal Consumed 70% Stool Size Small Stool Consistency liquid Stool Characteristics Normal for Patient Stool Color Brown Yellow Green # Voids 1 Weight 51.1 kg Patient Weight 11/14/17 23:59 Weight 51.1 kg - General physical appearance no distress - Respiratory normal expansion, normal respiratory effort - Cardiovascular Cardiovascular exam: Present: RRR - Abdomen Abdomen: Present: soft Additional Comments: ostomy: pink, viable, functioning - Incision Incision: Present: clean and dry, intact - Neurologic CN 2-12 grossly intact - Labs 11/14/17 03:22 11/14/17 03:22 Diabetes panel 11/13/17 11/14/17 Range/Units 08:00 03:22 Sodium 133 L (136-145) mEq/L Potassium 3.7 3.7 (3.5-5.1) mEq/L Chloride 109 H (98-107) mEq/L Carbon Dioxide 21 L (23-29) mEq/L BUN 15 (8-23) mg/dL Creatinine 1.00 (0.60-1.20) mg/dL Glucose 98 (70-105) mg/dL Calcium 7.8 L (8.6-10.3) mg/dL Calcium panel 11/14/17 Range/Units 03:22 Calcium 7.8 L (8.6-10.3) mg/dL Pituitary panel 11/13/17 11/14/17 Range/Units 08:00 03:22 Sodium 133 L (136-145) mEq/L Potassium 3.7 3.7 (3.5-5.1) mEq/L Chloride 109 H (98-107) mEq/L Carbon Dioxide 21 L (23-29) mEq/L BUN 15 (8-23) mg/dL Creatinine 1.00 (0.60-1.20) mg/dL Glucose 98 (70-105) mg/dL Calcium 7.8 L (8.6-10.3) mg/dL Adrenal panel 11/13/17 11/14/17 Range/Units 08:00 03:22 Sodium 133 L (136-145) mEq/L Potassium 3.7 3.7 (3.5-5.1) mEq/L Chloride 109 H (98-107) mEq/L Carbon Dioxide 21 L (23-29) mEq/L BUN 15 (8-23) mg/dL Creatinine 1.00 (0.60-1.20) mg/dL Glucose 98 (70-105) mg/dL Calcium 7.8 L (8.6-10.3) mg/dL - VTE Reasons for not Prescribing Prophylaxis: Medical contraindication (Active GI bleed/anemia) Documentation of Mechanical Device: Intermittent pneumatic compression device Consult Discharge Plan - Plan Referrals: Que Corley DO [Resident] - 11/21/17 10:15 am
--- NOTE | 2017-11-14 09:07 | General Surgery Progress Note ---
Date of Encounter: 11/14/17 Time of Encounter: 09:04 - Assessment and Plan (1) GI bleed Current Visit: Yes Status: Acute 7 weeks s/p sigmoidectomy with diverting ileostomy. Presents for high ileostomy output and GI bleed. Hospital Day #5 JACQUIE has resolved, nephrology signed off. Electrolytes have improved. No longer metabolic acidosis. No bleeding from ostomy since her admission here. Hgb stable at 8.8 (yesterday at 9.3). Her pain is well managed. Able to tolerate her regular diet. Plan for contrast study of the anastamosis as well as an EGD and push enteroscopy if those studies show no issues, then we will plan for takedown of her ileostomy while inpatient. - Contrast study today - Continue IV fluids - Diet as tolerated - NPO prior to contrast study - Expect EGD and Possible ileostomy takedown sometime this week Qualifiers: GI bleed type/associated pathology: unspecified gastrointestinal hemorrhage type Qualified Code(s): K92.2 - Gastrointestinal hemorrhage, unspecified (2) S/P colectomy Current Visit: Yes Status: Chronic (3) Acute kidney failure Current Visit: Yes Status: Resolved Resolved. Renal function has normalized Qualifiers: Acute renal failure type: unspecified Qualified Code(s): N17.9 - Acute kidney failure, unspecified Subjective Narrative: Patient admits to mild lower abdominal pain, but continues to improve. Denies N/ V, chest pain, or dyspnea. No fevers overnight. Tolerating PO diet. Objective Vital Signs - Last 8 Hours Temp Pulse Resp BP Pulse Ox 11/14/17 06:59 98.0 F 65 18 110/57 100 11/14/17 04:24 98.2 F 87 20 112/82 98 Intake and Output 11/13/17 11/14/17 11/14/17 23:59 07:59 15:59 Intake Total 150 / 150 1000 / 1000 Output Total 775 / 775 750 / 750 300 / 300 Balance -625 / -625 250 / 250 -300 / -300 Intake: IV Fluids 1000 / 1000 0.9 % Sodium Chloride 1,000 ML 1000 / 1000 @ 75 mls/hr IVC .[id number] [facility] Rx #:[id number] Oral 150 / 150 Output: Urine 100 / 100 Stool 400 / 400 600 / 600 200 / 200 Catheter 375 / 375 150 / 150 Other: Meal Dinner Percent of Meal Consumed 70% Stool Size Small Stool Consistency liquid Stool Characteristics Normal for Patient Stool Color Brown Yellow Green # Voids 1 Weight 51.1 kg Patient Weight 11/14/17 23:59 Weight 51.1 kg - Additional Exam VITAL SIGNS: Reviewed. See [facility] GENERAL: no apparent distress. HEENT: Normocephalic, EOMI, oropharynx pink/moist, no JVD noted CV: b/l rad pulses 2+, RRR, no murmurs or gallops, no JVD RESPIRATORY: CTAB without wheezes, rales, or rhonchi ABD: soft, non-tender, no rebound/guarding/rigidity, no peritoneal signs. Normal bowel sounds. INCISION: bandage clean, dry, intact without purulence/bleeding/edema/rubor/ calor. Minor serous drainage. OSTOMY: Feval output evident. Patent, pink, and moist. No signs of erythema, pus , or infection. EXTREMITY: grossly normal motor function, no pedal edema, peripheral pulses 2+ b /l NEUROLOGIC EXAM: AOx3, obeys commands, no speech deficits. PSYCHIATRIC: normal mood and affect SKIN: no gross lesions, rashes, or skin changes - Labs 11/14/17 03:22 11/14/17 03:22 Diabetes panel 11/13/17 11/14/17 Range/Units 08:00 03:22 Sodium 133 L (136-145) mEq/L Potassium 3.7 3.7 (3.5-5.1) mEq/L Chloride 109 H (98-107) mEq/L Carbon Dioxide 21 L (23-29) mEq/L BUN 15 (8-23) mg/dL Creatinine 1.00 (0.60-1.20) mg/dL Glucose 98 (70-105) mg/dL Calcium 7.8 L (8.6-10.3) mg/dL Calcium panel 11/14/17 Range/Units 03:22 Calcium 7.8 L (8.6-10.3) mg/dL Pituitary panel 11/13/17 11/14/17 Range/Units 08:00 03:22 Sodium 133 L (136-145) mEq/L Potassium 3.7 3.7 (3.5-5.1) mEq/L Chloride 109 H (98-107) mEq/L Carbon Dioxide 21 L (23-29) mEq/L BUN 15 (8-23) mg/dL Creatinine 1.00 (0.60-1.20) mg/dL Glucose 98 (70-105) mg/dL Calcium 7.8 L (8.6-10.3) mg/dL Adrenal panel 11/13/17 11/14/17 Range/Units 08:00 03:22 Sodium 133 L (136-145) mEq/L Potassium 3.7 3.7 (3.5-5.1) mEq/L Chloride 109 H (98-107) mEq/L Carbon Dioxide 21 L (23-29) mEq/L BUN 15 (8-23) mg/dL Creatinine 1.00 (0.60-1.20) mg/dL Glucose 98 (70-105) mg/dL Calcium 7.8 L (8.6-10.3) mg/dL - VTE Reasons for not Prescribing Prophylaxis: Medical contraindication (Active GI bleed/anemia) Documentation of Mechanical Device: Intermittent pneumatic compression device Consult Discharge Plan - Plan Referrals: Que Corley DO [Resident] - 11/21/17 10:15 am
[2017-11-14] MEDS: *HR* HYDROcodone/Acet 5/325 mg TABLET PO PRN ×2 (10:33→19:09)
--- NOTE | 2017-11-14 18:15 | Internal Med Progress Note ---
Date of Encounter: 11/14/17 Time of Encounter: 18:13 - Assessment and plan (1) GI bleed Current Visit: Yes Status: Acute Assessment and plan: Bleeding resolved. No blood in colostomy bag at this time. Hemoglobin stable. Continue IV protonix BID. Recheck CBC in AM; transfuse as necessary with goal Hgb > 7.0. General surgery consulted; appreciate input. Plan for reimaging and possible reversal of colostomy after medically stable. Qualifiers: GI bleed type/associated pathology: unspecified gastrointestinal hemorrhage type Qualified Code(s): K92.2 - Gastrointestinal hemorrhage, unspecified (2) Hyperkalemia Current Visit: Yes Status: Resolved Assessment and plan: Resolved. Recheck BMP in AM. (3) Hypokalemia Current Visit: Yes Status: Resolved Assessment and plan: Resolved. Nephrology consulted; appreciate input. Nephrology repleting potassium as necessary. Continue telemetry. Repeat BMP in AM. (4) Hyponatremia Current Visit: Yes Status: Acute Assessment and plan: Improved. Nephrology consulted; appreciate input. Continue IV NS as management by nephrology. Recheck BMP in AM. (5) Acute kidney failure Current Visit: Yes Status: Resolved Assessment and plan: Resolved. Nephrology consulted; appreciate input. Continue IV NS as managed by nephrology. Recheck BMP in AM. Qualifiers: Acute renal failure type: unspecified Qualified Code(s): N17.9 - Acute kidney failure, unspecified (6) Abdominal pain Current Visit: Yes Status: Acute Assessment and plan: Still with decent pain. Continue pain control. General surgery consulted; appreciate input. Qualifiers: Abdominal location: generalized Qualified Code(s): R10.84 - Generalized abdominal pain (7) Metabolic acidosis Current Visit: Yes Status: Acute Assessment and plan: Resolved. Nephrology consulted; appreciate input. Continue IV NS as managed by nephrology. Recheck BMP in AM. (8) Hepatitis C Current Visit: Yes Status: Chronic Assessment and plan: Continue management as outpatient. Qualifiers: Viral hepatitis chronicity: chronic Hepatic coma status: without hepatic coma Qualified Code(s): B18.2 - Chronic viral hepatitis C (9) Essential hypertension Current Visit: Yes Status: Chronic Assessment and plan: Hypotension improved. Continue fluid resuscitation. Monitor vitals closely. (10) S/P colectomy Current Visit: Yes Status: Chronic Assessment and plan: General surgery consulted; appreciate input. (11) Poor fluid intake Current Visit: Yes Status: Resolved Assessment and plan: Resolved. Management as per above. Continue diet as tolerated. (12) DVT prophylaxis Current Visit: Yes Status: Acute Assessment and plan: No anticoagulation due to GI bleed and anemia. Continue SCDs. - Time Spent With Patient Total time spent is greater than 50% in coordination of care (as documented) at patient's floor/unit and/or counseling patient: less than 15 minutes - Subjective Interval history: Patient had no acute events overnight. She states that she is doing well today. She is tolerating diet. She really wants to know when her surgery will be; she was sleeping when surgeon saw her this morning so she was unable to ask. I advised her to ask the surgeon about plan next morning. I advised her that surgeon wants to get contrast study done first. Colostomy output looks normal without signs of red blood or black stool. She denies abdominal pain, nausea, or vomiting at this time. She denies fever, chills, chest pain, and SOB. She has no other complaints at this time. - Constitutional Vitals: Temp Pulse Resp BP Pulse Ox 98.7 F 81 16 127/76 99 11/14/17 16:48 11/14/17 16:48 11/14/17 16:48 11/14/17 16:48 11/14/17 16:48 General appearance: Present: cooperative, A&O X 3, pleasant, no acute distress, answers questions appropriately - Respiratory Respiratory exam: Present: CTAB. Absent: accessory muscle use, rales, rhonchi, wheezes Additional comments: Normal WOB - Cardiovascular Cardiovascular exam: Present: RRR, +S1, +S2. Absent: diastolic murmur, gallop, rubs, systolic murmur Additional comments: No BLE edema - GI/Abdominal GI/Abdominal exam: Present: normal bowel sounds, soft, tenderness (mild TTP diffusely across abdomen). Absent: distended, hepatomegaly, mass, splenomegaly Additional comments: Colostomy bag in place with brown stool - Psychiatric Psychiatric exam: Present: normal affect, normal mood. Absent: agitated, anxious, depressed - Skin Skin exam: Present: dry, intact, warm. Absent: cyanosis, rash Internal Medicine: Result - Labs CBC & Chem 7: 11/14/17 03:22 11/14/17 03:22 Labs: Short CBC 11/14/17 Range/Units 03:22 WBC 5.4 (4.3-11.1) K/mcL Hgb 8.8 L (11.5-15.4) g/dL Hct 25.8 L (35.3-44.9) % Plt Count 34 L (140-400) K/mcL Neutrophils # 3.1 (1.6-8.9) K/mcL BMP 11/14/17 03:22 Sodium 133 L Potassium 3.7 Chloride 109 H Carbon Dioxide 21 L BUN 15 Creatinine 1.00 Glucose 98 Calcium 7.8 L - ABG Interpretation ABG results: PT/INR, D-dimer PT 14.2 Seconds (9.4-12.1) H 11/09/17 16:13 - Impressions Impressions Barium Enema 11/14/17 09:00 IMPRESSION: Findings concerning for a small contained leak at level of colorectal anastomosis. In retrospect, this finding is likely present on the 11/09/2017 CT exam (series 2, image 134). D/ / Fransico Verduzco MD / Fransico Verduzco MD Interpreting Provider: Fransico Verduzco MD - VTE Reasons for not Prescribing Prophylaxis: Medical contraindication (Active GI bleed/anemia) Documentation of Mechanical Device: Intermittent pneumatic compression device Consult Discharge Plan - Plan Referrals: Que Corley DO [Resident] - 11/21/17 10:15 am
[2017-11-15] MEDS: 0.9 % Sodium Chloride 1,000 ML IVC SCH ×2 (06:51→20:18)
[2017-11-15] MEDS: Pantoprazole 40 MG VIAL IVP SCH ×2 (06:57→18:09)
[2017-11-15 07:28] LABS: Basophils % 0.4 %; Hemoglobin 9.8 g/dL (11.5-15.4)
[2017-11-15 07:30] LABS: Eosinophils # 0.1 K/mcL (0.0-0.6); Eosinophils % 2.1 %; Hematocrit 29.3 % (35.3-44.9); Immature Granulocytes % 0.2 % (0-4); Immature Platelets 9.1 % (1.1-6.1); Lymphocytes # 1.4 K/mcL (0.6-4.6); Lymphocytes % 24.5 %; Mean Corpuscular HGB Conc 33.4 g/dL (31.6-35.5); Mean Corpuscular Hemoglobin 31.5 pg (28.0-33.3); Mean Corpuscular Volume 94.2 fL (83.0-100.0); Mean Platelet Volume 12.6 fL (9.4-12.4); Monocytes # 0.4 K/mcL (0.0-1.3); Neutrophils # 3.8 K/mcL (1.6-8.9); Red Blood Count 3.11 M/mcL (3.82-4.97); Red Cell Distribution Width 13.8 % (11.5-14.5); Segmented Neutrophils % 65.8 %
[2017-11-15 07:49] LABS: BUN/Creatinine Ratio 13 (6-26); Blood Urea Nitrogen 11 mg/dL (8-23); Calcium 7.9 mg/dL (8.6-10.3); Carbon Dioxide 16 mEq/L (23-29); Chloride 109 mEq/L (98-107); Glucose 132 mg/dL (70-105); Magnesium 0.9 mg/dL (1.6-2.6); Osmolality,Calculated 275 (280-300); Phosphorous 1.7 mg/dL (2.7-4.5); Potassium 3.5 mEq/L (3.5-5.1); Sodium 132 mEq/L (136-145); eGFR For African Americans > 60 (> 60); eGFR For Non-African Americans > 60 (> 60)
[2017-11-15 07:55] LABS: Platelet Count 44 K/mcL (140-400)
[2017-11-15] MEDS: *HR* HYDROcodone/Acet 5/325 mg TABLET PO PRN ×2 (08:20→18:08)
[2017-11-15] MEDS ORDERED: Potassium Phosphate 44 MEQ in 0.9 % Sodium Chloride 250 ML IVPB ONE (09:17)
[2017-11-15] MEDS: OXYCODONE Oral CONC 10 MG/0.5 ML ORAL.SYG SL PRN ×2 (10:47→19:49)
--- NOTE | 2017-11-15 13:38 | Internal Med Progress Note ---
Date of Encounter: 11/15/17 Time of Encounter: 13:35 - Assessment and plan (1) GI bleed Current Visit: Yes Status: Acute Assessment and plan: Patient has colostomy, Hemoglobin stable Bleeding resolved. Monitor and trasnfuse as needed. Currently no indication for transfusion. Continue IV protonix BID General surgery following; appreciate input. Possible reversal of colostomy this week. Qualifiers: GI bleed type/associated pathology: unspecified gastrointestinal hemorrhage type Qualified Code(s): K92.2 - Gastrointestinal hemorrhage, unspecified (2) Acute kidney failure Current Visit: Yes Status: Resolved Assessment and plan: Resolved. Qualifiers: Acute renal failure type: unspecified Qualified Code(s): N17.9 - Acute kidney failure, unspecified (3) Hepatitis C Current Visit: Yes Status: Chronic Assessment and plan: Continue management as outpatient. Qualifiers: Viral hepatitis chronicity: chronic Hepatic coma status: without hepatic coma Qualified Code(s): B18.2 - Chronic viral hepatitis C (4) Essential hypertension Current Visit: Yes Status: Chronic Assessment and plan: Hypotension improved. Monitor vitals closely. No indication for antihypertensives as patient BP running lower/normal limits. (5) S/P colectomy Current Visit: Yes Status: Chronic Assessment and plan: General surgery consulted; appreciate input. Plan is for reversal colostomy at some point (6) Hypokalemia Current Visit: Yes Status: Resolved Assessment and plan: Resolved. Replace as needed (7) Hyponatremia Current Visit: Yes Status: Acute Assessment and plan: Improved. Nephrology consulted; appreciate input. Continue IV NS as management by nephrology. Recheck BMP in AM. (8) Poor fluid intake Current Visit: Yes Status: Resolved Assessment and plan: Resolved. Management as per above. Continue diet as tolerated. (9) Metabolic acidosis Current Visit: Yes Status: Acute Assessment and plan: Resolved. Nephrology consulted;signed off as this has resolved. (10) DVT prophylaxis Current Visit: Yes Status: Acute Assessment and plan: No anticoagulation due to GI bleed and anemia. Continue SCDs. - Time Spent With Patient Total time spent is greater than 50% in coordination of care (as documented) at patient's floor/unit and/or counseling patient: - Subjective Interval history: No acute issues. no acute events. - Constitutional Vitals: Temp Pulse Resp BP Pulse Ox 98.8 F 72 16 105/65 99 11/15/17 12:33 11/15/17 12:33 11/15/17 12:33 11/15/17 12:33 11/15/17 12:33 General appearance: Present: cooperative, A&O X 3, pleasant, no acute distress, answers questions appropriately Exam: - Respiratory Respiratory exam: Present: CTAB. Absent: accessory muscle use, rales, rhonchi, wheezes - Cardiovascular Cardiovascular exam: Present: RRR, +S1, +S2. Absent: diastolic murmur, gallop, rubs, systolic murmur - GI/Abdominal GI/Abdominal exam: Present: normal bowel sounds, soft, tenderness (mild TTP diffusely across abdomen). Absent: distended, hepatomegaly, mass, splenomegaly Additional comments: Colostomy bag in place no melena - Psychiatric Psychiatric exam: Present: normal affect, normal mood. Absent: agitated, anxious, depressed - Skin Skin exam: Present: dry, intact, warm. Absent: cyanosis, rash Internal Medicine: Result - Labs CBC & Chem 7: 11/15/17 07:04 11/15/17 07:04 Labs: Short CBC 11/15/17 Range/Units 07:04 WBC 5.7 (4.3-11.1) K/mcL Hgb 9.8 L (11.5-15.4) g/dL Hct 29.3 L (35.3-44.9) % Plt Count 44 L (140-400) K/mcL Neutrophils # 3.8 (1.6-8.9) K/mcL BMP 11/15/17 07:04 Sodium 132 L Potassium 3.5 Chloride 109 H Carbon Dioxide 16 L BUN 11 Creatinine 0.87 Glucose 132 H Calcium 7.9 L - ABG Interpretation ABG results: PT/INR, D-dimer PT 14.2 Seconds (9.4-12.1) H 11/09/17 16:13 - Impressions Impressions Barium Enema 11/14/17 09:00 IMPRESSION: Findings concerning for a small contained leak at level of colorectal anastomosis. In retrospect, this finding is likely present on the 11/09/2017 CT exam (series 2, image 134). D/ / Fransico Verduzco MD / Fransico Verduzco MD Interpreting Provider: Fransico Verduzco MD - VTE Reasons for not Prescribing Prophylaxis: Medical contraindication (Active GI bleed/anemia) Documentation of Mechanical Device: Intermittent pneumatic compression device Consult Discharge Plan - Plan Referrals: Que Corley DO [Resident] - 11/21/17 10:15 am
--- NOTE | 2017-11-15 17:29 | General Surgery Progress Note ---
Date of Encounter: 11/15/17 Time of Encounter: 12:00 - Assessment and Plan (1) Dehydration Current Visit: Yes Status: Acute 62F s/p sigmoid colectomy with diverting loop ileostomy, s/p cholecystectomy readmitted 2/2 dehydration from inability to keep up with ileostomy output; JACQUIE significantly improved; contrast study demonstrates small contained leak; diet as tolerated loperamide - need output to be ~1L replete lytes no surgery at present will take over as primary in AM Subjective Patient reports: no new complaints, tolerating a regular diet, flatus, bowel movement, diarrhea Objective Vital Signs - Last 8 Hours Temp Pulse Resp BP Pulse Ox 11/15/17 15:30 98.2 F 86 16 106/67 100 11/15/17 12:33 98.8 F 72 16 105/65 99 Intake and Output 11/15/17 11/15/17 11/15/17 07:59 15:59 23:59 Intake Total 1000 / 1000 600 / 600 Output Total 0 / 0 1200 / 1200 375 / 375 Balance 1000 / 1000 -600 / -600 -375 / -375 Intake: IV Fluids 1000 / 1000 0.9 % Sodium Chloride 1,000 ML 1000 / 1000 @ 75 mls/hr IVC .[id number] [facility] Rx #:[id number] Oral 0 / 0 600 / 600 Output: Urine 0 / 0 Stool 1200 / 1200 375 / 375 Other: Meal Lunch Percent of Meal Consumed 50% Stool Size Moderate Stool Consistency loose Stool Color Brown # Voids 1 1 Weight 52.6 kg Patient Weight 11/15/17 23:59 Weight 52.6 kg - General physical appearance no distress - Respiratory normal expansion, normal respiratory effort - Cardiovascular Cardiovascular exam: Present: RRR - Abdomen Abdomen: Present: soft, non tender (ostomy - pink viable functioning) - Neurologic CN 2-12 grossly intact - Musculoskeletal normal posture - Psychiatric oriented to time, oriented to person, oriented to place - Labs 11/15/17 07:04 11/15/17 07:04 Diabetes panel 11/15/17 Range/Units 07:04 Sodium 132 L (136-145) mEq/L Potassium 3.5 (3.5-5.1) mEq/L Chloride 109 H (98-107) mEq/L Carbon Dioxide 16 L (23-29) mEq/L BUN 11 (8-23) mg/dL Creatinine 0.87 (0.60-1.20) mg/dL Glucose 132 H (70-105) mg/dL Calcium 7.9 L (8.6-10.3) mg/dL Calcium panel 11/15/17 11/15/17 Range/Units 07:04 07:04 Calcium 7.9 L (8.6-10.3) mg/dL Phosphorus 1.7 L (2.7-4.5) mg/dL Pituitary panel 11/15/17 Range/Units 07:04 Sodium 132 L (136-145) mEq/L Potassium 3.5 (3.5-5.1) mEq/L Chloride 109 H (98-107) mEq/L Carbon Dioxide 16 L (23-29) mEq/L BUN 11 (8-23) mg/dL Creatinine 0.87 (0.60-1.20) mg/dL Glucose 132 H (70-105) mg/dL Calcium 7.9 L (8.6-10.3) mg/dL Adrenal panel 11/15/17 Range/Units 07:04 Sodium 132 L (136-145) mEq/L Potassium 3.5 (3.5-5.1) mEq/L Chloride 109 H (98-107) mEq/L Carbon Dioxide 16 L (23-29) mEq/L BUN 11 (8-23) mg/dL Creatinine 0.87 (0.60-1.20) mg/dL Glucose 132 H (70-105) mg/dL Calcium 7.9 L (8.6-10.3) mg/dL - VTE Reasons for not Prescribing Prophylaxis: Medical contraindication (Active GI bleed/anemia) Documentation of Mechanical Device: Intermittent pneumatic compression device Consult Discharge Plan - Plan Referrals: Que Corley DO [Resident] - 11/21/17 10:15 am
[2017-11-16] MEDS: *HR* HYDROcodone/Acet 5/325 mg TABLET PO PRN (01:20)
[2017-11-16] MEDS: OXYCODONE Oral CONC 10 MG/0.5 ML ORAL.SYG SL PRN (04:30)
[2017-11-16] MEDS: Pantoprazole 40 MG VIAL IVP SCH ×2 (06:48→17:32)
[2017-11-16 06:55] LABS: Immature Granulocytes % 0.2 % (0-4)
[2017-11-16 06:56] LABS: Basophils % 0.4 %; Eosinophils # 0.1 K/mcL (0.0-0.6); Eosinophils % 2.4 %; Hemoglobin 8.6 g/dL (11.5-15.4); Immature Platelets 8.3 % (1.1-6.1); Lymphocytes # 1.2 K/mcL (0.6-4.6); Lymphocytes % 25.6 %; Mean Corpuscular HGB Conc 33.1 g/dL (31.6-35.5); Mean Corpuscular Hemoglobin 30.4 pg (28.0-33.3); Mean Corpuscular Volume 91.9 fL (83.0-100.0); Mean Platelet Volume 12.5 fL (9.4-12.4); Monocytes # 0.6 K/mcL (0.0-1.3); Neutrophils # 2.8 K/mcL (1.6-8.9); Red Blood Count 2.83 M/mcL (3.82-4.97); Segmented Neutrophils % 59.4 %
[2017-11-16 07:00] LABS: Platelet Count 44 K/mcL (140-400)
[2017-11-16 07:15] LABS: Alanine Aminotransferase 55 Units/L (7-52); Albumin 2.2 g/dL (3.5-5.7); Albumin/Globulin Ratio 0.8 (1.1-2.2); Alkaline Phosphatase 79 Units/L (34-104); Aspartate Amino Transferase 50 Units/L (13-39); BUN/Creatinine Ratio 16 (6-26); Blood Urea Nitrogen 11 mg/dL (8-23); Calcium 7.6 mg/dL (8.6-10.3); Carbon Dioxide 15 mEq/L (23-29); Chloride 114 mEq/L (98-107); Globulin 2.6 g/dL (2.4-3.5); Glucose 104 mg/dL (70-105); Osmolality,Calculated 278 (280-300); Sodium 134 mEq/L (136-145); Total Protein 4.8 g/dL (6.4-8.9); eGFR For African Americans > 60 (> 60); eGFR For Non-African Americans > 60 (> 60)
--- NOTE | 2017-11-16 09:16 | General Surgery Progress Note ---
Date of Encounter: 11/16/17 Time of Encounter: 09:14 - Assessment and Plan (1) Dehydration Current Visit: Yes Status: Acute 62F s/p sigmoid colectomy with diverting loop ileostomy admitted secondary to inability to keep up with ileostomy output; currently with 2.3L from ileostomy; goal is ~ 1L cont to monitor cardiac and pulm status GI: diet as tolerated; inc loperamide to 8mg with meals; add low dose lomotil BID; protonix for patient; cont to monitor ileosotmy output; plan for EGD and/ or push enteroscopy 2/2 concern for UGIB; likely in AM; patient also has cirrhosis (likely explains AST/ALT elevation) : cont to monitor UOP; Cr wnl heme; DVT prophylaxis; lovenox (may need 30mg in light of current weight) SST: okay to remove every other staple today FEN: cont IVF; cont to monitor I/O; encouraged patient to keep up with output and take in at least 2L of fluids/day; no need to check CBC at this time; BMP, mg, Phosph until labs are stable dispo: cont cares on floor (2) Leak of anastomosis between gastrointestinal structures Current Visit: Yes Status: Acute small contained leak of colo-rectal anastamosis; patient is non septic and diverted will plan to keep the patient diverted; repeat study in 6-8 weeks to assess for healing encouraged PO intake will check pre-albumin discussed with patient and family Subjective Patient reports: no new complaints, flatus, bowel movement, diarrhea, afebrile Objective Vital Signs - Last 8 Hours Temp Pulse Resp BP Pulse Ox 11/16/17 06:53 97.9 F 71 16 120/68 100 11/16/17 04:35 98.5 F 71 15 102/61 95 Intake and Output 11/15/17 11/16/17 11/16/17 23:59 07:59 15:59 Intake Total 1240 / 1240 0 / 0 Output Total 1125 / 1125 650 / 650 Balance 115 / 115 -650 / -650 Intake: IV Fluids 1000 / 1000 0.9 % Sodium Chloride 1,000 ML 1000 / 1000 @ 75 mls/hr IVC .[id number] [facility] Rx #:[id number] Oral 240 / 240 0 / 0 Output: Urine 100 / 100 Stool 1125 / 1125 550 / 550 Other: Meal Dinner Percent of Meal Consumed 25% Stool Consistency liquid Stool Characteristics Seedy Stool Color Brown Yellow # Voids 1 Weight 52.1 kg Patient Weight 11/16/17 23:59 Weight 52.1 kg - General physical appearance no distress - Respiratory normal expansion, normal respiratory effort - Cardiovascular Cardiovascular exam: Present: RRR - Abdomen Abdomen: Present: soft, non tender - Incision Incision: Present: clean and dry, intact - Integumentary no rash - Neurologic CN 2-12 grossly intact - Musculoskeletal normal posture - Psychiatric oriented to time, oriented to person, oriented to place - Labs 11/16/17 06:26 11/16/17 06:26 Diabetes panel 11/16/17 Range/Units 06:26 Sodium 134 L (136-145) mEq/L Potassium 4.0 (3.5-5.1) mEq/L Chloride 114 H (98-107) mEq/L Carbon Dioxide 15 L (23-29) mEq/L BUN 11 (8-23) mg/dL Creatinine 0.70 (0.60-1.20) mg/dL Glucose 104 (70-105) mg/dL Calcium 7.6 L (8.6-10.3) mg/dL AST 50 H (13-39) Units/L ALT 55 H (7-52) Units/L Alkaline Phosphatase 79 (34-104) Units/L Albumin 2.2 L (3.5-5.7) g/dL Calcium panel 11/16/17 Range/Units 06:26 Calcium 7.6 L (8.6-10.3) mg/dL Albumin 2.2 L (3.5-5.7) g/dL Pituitary panel 11/16/17 Range/Units 06:26 Sodium 134 L (136-145) mEq/L Potassium 4.0 (3.5-5.1) mEq/L Chloride 114 H (98-107) mEq/L Carbon Dioxide 15 L (23-29) mEq/L BUN 11 (8-23) mg/dL Creatinine 0.70 (0.60-1.20) mg/dL Glucose 104 (70-105) mg/dL Calcium 7.6 L (8.6-10.3) mg/dL Adrenal panel 11/16/17 Range/Units 06:26 Sodium 134 L (136-145) mEq/L Potassium 4.0 (3.5-5.1) mEq/L Chloride 114 H (98-107) mEq/L Carbon Dioxide 15 L (23-29) mEq/L BUN 11 (8-23) mg/dL Creatinine 0.70 (0.60-1.20) mg/dL Glucose 104 (70-105) mg/dL Calcium 7.6 L (8.6-10.3) mg/dL Total Bilirubin 1.0 (0.3-1.0) mg/dL AST 50 H (13-39) Units/L ALT 55 H (7-52) Units/L Alkaline Phosphatase 79 (34-104) Units/L Albumin 2.2 L (3.5-5.7) g/dL - Imaging Additional Studies: barium enema: small contained leak - VTE Reasons for not Prescribing Prophylaxis: Medical contraindication (Active GI bleed/anemia) Documentation of Mechanical Device: Intermittent pneumatic compression device Consult Discharge Plan - Plan Referrals: Que Corley DO [Resident] - 11/21/17 10:15 am
[2017-11-16] MEDS: 0.9 % Sodium Chloride 1,000 ML IVC SCH ×2 (09:34→23:05)
[2017-11-16] MEDS: *HR* Enoxaparin 40 MG/0.4 ML SYRINGE SQ SCH (09:39)
[2017-11-16 10:04] LABS: Magnesium 1.5 mg/dL (1.6-2.6); Phosphorous 2.1 mg/dL (2.7-4.5)
[2017-11-16] MEDS: Ibuprofen 400 MG TABLET PO PRN ×2 (15:04→22:33)
--- NOTE | 2017-11-16 18:24 | Event Note ---
Date of Encounter: 11/16/17 Time of Encounter: 10:21 Per Surgery note yesterday, Surgery will be taking over as primary service. No acute issues VS: reviewed Physical exam: NAD, AAOx3, CVS: RRR, Lungs: CTAB, Abd: nt, non distended. Ext: no edema Hemoglobin stable JACQUIE is resolved, electrolyte imbalance improving but chloride increasing. If IV fluid needs continued, I would recommend switching to 1/2NS or to LR in that case. Vitals are unremarkable including blood pressure
--- NOTE | 2017-11-17 00:04 | Anesthesia Evaluation PreOp ---
<Alberta Joy - Last Filed: 11/17/17 00:23> Date of Encounter: 11/17/17 Time of Encounter: 00:01 - Past History Planned Operation: EGD/Push Enteroscopy Cardiac History: HTN, Hyperlipidemia, Other (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 History: CVA (NO residula weakness per patient, walks independently, occasional R-sided numbness, Anxiety/Depression) Other Medical History: Hepatic (HepB, HepC), Diabetes Type II, GERD, Other (Hx poor appetite/High output ileostomy/malnutrition on TPN) Anesthesia History: No Prior Anesthetic Complications, Past Anesthesia ([place]) Alcohol Use: none Drug use: none Medications and Allergies Diltiazem CD (24hr) [Cardizem CD] 180 mg PO DAILY 06/27/17 [History] Ibuprofen [Motrin] 800 mg PO Q8HR PRN #42 tablet 10/06/17 [Rx] OxyCODONE/APAP 5/325 [Percocet 5/325 MG] 1 each PO Q6HR PRN 7 Days #28 tablet [Rx] Diphenoxylate/Atropine [Lomotil 2.5 mg/0.025 mg] 1 tab PO BID PRN 30 Days #60 tablet 10/28/17 [Rx] Loperamide [Imodium] 8 mg PO QID PRN 15 Days #240 capsule 10/28/17 [Rx] Ondansetron ODT [Zofran ODT] 4 mg SL Q6HR #15 tab.rapdis 10/28/17 [Rx] Famotidine [Pepcid] 40 mg PO DAILY 11/09/17 [History] 3 Allergy/AdvReac Type Severity Reaction Status Date / Time Penicillins [PCN] Allergy Rash Verified 11/09/17 15:30 niacin AdvReac Flushing Verified 11/09/17 15:30 duracef Allergy See Uncoded 11/09/17 15:30 Comments - Meds/Allergy Pre-op Review Medications Reviewed: Yes Allergies Reviewed: Yes Beta Blockers on Current Med List: No Anesthesia Results - Labs 11/16/17 06:26 11/16/17 06:26 Laboratory Results Impressions Abdomen/Pelvis CT 11/09/17 17:05 IMPRESSION: No acute intra-abdominal or intrapelvic abnormality detected. Nonspecific tubular density extending from the skin surface to the anterior abdominal wall, just above the ileostomy site. Rule out fistula if clinically warranted. D/ / Jelani Schulz MD / Jelani Schulz MD Interpreting Provider: Jelani Schulz MD Retroperitoneum Ultrasound 11/09/17 17:47 IMPRESSION: No hydronephrosis nor shadowing renal pelvic stones. Increased echogenicity of the renal parenchyma, nonspecific finding suggesting medical renal disease. D/ / Justyna Rios Cha, MD / Justyna Rios Cha, MD Interpreting Provider: Justyna Rios Cha, MD Barium Enema 11/14/17 09:00 IMPRESSION: Findings concerning for a small contained leak at level of colorectal anastomosis. In retrospect, this finding is likely present on the 11/09/2017 CT exam (series 2, image 134). D/ / Fransico Verduzco MD / Fransico Verduzco MD Interpreting Provider: Fransico Verduzco MD Anesthesia Exam Vital Signs Temp Pulse Resp BP Pulse Ox 11/17/17 00:00 98.8 F 77 15 111/66 98 11/16/17 20:27 99.1 F 86 14 131/74 98 11/16/17 14:49 98.6 F 76 16 113/65 99 11/16/17 11:21 100 11/16/17 06:53 97.9 F 71 16 120/68 100 11/16/17 04:35 98.5 F 71 15 102/61 95 Intake and Output 11/16/17 11/16/17 11/17/17 15:59 23:59 07:59 Intake Total 120 / 120 1000 / 1000 Output Total 1100 / 1100 1050 / 1050 Balance -980 / -980 -50 / -50 Intake: IV Fluids 1000 / 1000 0.9 % Sodium Chloride 1,000 ML 1000 / 1000 @ 75 mls/hr IVC .[id number] [facility] Rx #:[id number] Oral 120 / 120 Output: Urine 300 / 300 150 / 150 Stool 800 / 800 900 / 900 Other: Meal Lunch Percent of Meal Consumed 25% Stool Size Large Stool Consistency liquid liquid Stool Characteristics Normal for Patient Stool Color Brown Green # Voids 1 Weight 51.7 kg Patient Weight 11/17/17 23:59 Weight 51.7 kg Weight: 52kG BMI = 21.5 - HEENT Pupil (Motor): Pupils equal Mallampati: II Teeth: Edentulous Oral Opening: Greater than 3 - 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 TABLE ATTENDANT LOC: Oriented - Cardiac Rhythm: Regular - Pulmonary Breath Sounds: bilateral Clear Respiratory Effort: Symmetrical Anesthesia Assess/Plan ASA Score: 4 Modified [place] Scale for Level of Consciousness: Cooperative, oriented, and tranquil Anesthetic Plan: MAC Monitoring Plan: Standard Monitors Recovery Plan: Other <Ghanshyam Reid - Last Filed: 11/17/17 08:16> Date of Encounter: 11/17/17 - Past History : No Anesthesia Results - Labs 11/16/17 06:26 11/17/17 06:29 - Imaging EKG: report reviewed (SR) Anesthesia Exam Vital Signs/O2 Sat, Most Current Temp Pulse Resp BP Pulse Ox 98.8 F 84 17 133/75 100 11/17/17 07:56 11/17/17 07:56 11/17/17 07:56 11/17/17 07:56 11/17/17 07:56 - CAFETERIA TABLE ATTENDANT LOC: Oriented CAFETERIA TABLE ATTENDANT Motor: Normal RUE, Normal LUE, Normal RLE, Normal LLE, Normal Face CAFETERIA TABLE ATTENDANT Sensory: Normal: RUE, LUE, RLE, LLE, Face - Cardiac Murmur: None JVD: No Carotid Bruit: No - Pulmonary Breath Sounds: bilateral Clear Respiratory Effort: Symmetrical
[2017-11-17] MEDS: Ibuprofen 400 MG TABLET PO PRN ×2 (04:47→11:26)
[2017-11-17] MEDS: Pantoprazole 40 MG VIAL IVP SCH ×2 (05:52→18:34)
[2017-11-17] MEDS: *HR* Enoxaparin 40 MG/0.4 ML SYRINGE SQ SCH (05:52)
[2017-11-17 07:15] LABS: BUN/Creatinine Ratio 13 (6-26); Blood Urea Nitrogen 10 mg/dL (8-23); Calcium 8.1 mg/dL (8.6-10.3); Carbon Dioxide 14 mEq/L (23-29); Chloride 119 mEq/L (98-107); Glucose 92 mg/dL (70-105); Magnesium 1.2 mg/dL (1.6-2.6); Osmolality,Calculated 287 (280-300); Phosphorous 2.3 mg/dL (2.7-4.5); Potassium 4.1 mEq/L (3.5-5.1); Sodium 139 mEq/L (136-145); eGFR For African Americans > 60 (> 60); eGFR For Non-African Americans > 60 (> 60)
[2017-11-17] MEDS ORDERED: *HR* Propofol 200 MG/20 ML VIAL IVP ONE (07:20)
[2017-11-17] MEDS ORDERED: Lidocaine -MPF 2% 2 ML VIAL ONE (07:20)
[2017-11-17] MEDS ORDERED: Ringers Solution, Lactated 1,000 ML IVC ONE (07:59)
--- NOTE | 2017-11-17 08:05 | Anesthesia Evaluation PreOp ---
Date of Encounter: 11/17/17 Time of Encounter: 08:02 - Past History Planned Operation: EGD, push enteroscopy Cardiac History: HTN, Hyperlipidemia Pulmonary History: COPD CERTIFIED MIDWIFE History: CVA (no residual weakness), Other (Anxiety/Depression) Other Medical History: Hepatic (Hep C, Hep B), Diabetes Type II, GERD, Other ( Hx poor appetite/High output ileostomy/malnutrition on TPN) Anesthesia History: No Prior Anesthetic Complications, Past Anesthesia (GB) : No Alcohol Use: none Drug use: none Medications and Allergies Diltiazem CD (24hr) [Cardizem CD] 180 mg PO DAILY 06/27/17 [History] Ibuprofen [Motrin] 800 mg PO Q8HR PRN #42 tablet 10/06/17 [Rx] OxyCODONE/APAP 5/325 [Percocet 5/325 MG] 1 each PO Q6HR PRN 7 Days #28 tablet [Rx] Diphenoxylate/Atropine [Lomotil 2.5 mg/0.025 mg] 1 tab PO BID PRN 30 Days #60 tablet 10/28/17 [Rx] Loperamide [Imodium] 8 mg PO QID PRN 15 Days #240 capsule 10/28/17 [Rx] Ondansetron ODT [Zofran ODT] 4 mg SL Q6HR #15 tab.rapdis 10/28/17 [Rx] Famotidine [Pepcid] 40 mg PO DAILY 11/09/17 [History] 3 Allergy/AdvReac Type Severity Reaction Status Date / Time Penicillins [PCN] Allergy Rash Verified 11/09/17 15:30 niacin AdvReac Flushing Verified 11/09/17 15:30 duracef Allergy See Uncoded 11/09/17 15:30 Comments - Meds/Allergy Pre-op Review Medications Reviewed: Yes Allergies Reviewed: Yes Beta Blockers on Current Med List: No Anesthesia Results - Labs 11/16/17 06:26 11/17/17 06:29 Anesthesia Exam Vital Signs/O2 Sat, Most Current Temp Pulse Resp BP Pulse Ox 98.8 F 84 17 133/75 100 11/17/17 07:56 11/17/17 07:56 11/17/17 07:56 11/17/17 07:56 11/17/17 07:56 NPO (# of Hours): > 8 hrs Pain Scale: 0 Pain Scale Used: Numeric (1 - 10) - HEENT Pupil (Motor): Pupils equal, EOMI Mallampati: II Teeth: Edentulous Oral Opening: Greater than 3 - CERTIFIED MIDWIFE LOC: Oriented CERTIFIED MIDWIFE Motor: Normal RUE, Normal LUE, Normal RLE, Normal LLE, Normal Face CERTIFIED MIDWIFE Sensory: Normal: RUE, LUE, RLE, LLE, Face - Cardiac Rhythm: Regular Murmur: None JVD: No Carotid Bruit: No - Pulmonary Breath Sounds: bilateral Clear Respiratory Effort: Symmetrical Anesthesia Assess/Plan ASA Score: 4 Modified Mcintire Scale for Level of Consciousness: Cooperative, oriented, and tranquil Anesthetic Plan: MAC Autologous Blood: Yes Monitoring Plan: Standard Monitors Recovery Plan: Other
--- NOTE | 2017-11-17 08:23 | Pre-Sedation Evaluation ---
Pre-sedation evaluation - Pre-sedation checklist Date of procedure: 11/17/17 Procedure: ex lap Recent Vitals: Last Vital Signs Temp 98.8 F 11/17/17 07:56 Pulse 84 11/17/17 07:56 Resp 17 11/17/17 07:56 BP 133/75 11/17/17 07:56 Pulse Ox 100 11/17/17 07:56 H&P (including ROS) documented in medical record: Yes Previous reaction to sedatives/anesthetics: No Dietary Status: NPO after Midnight Dentition: No loose teeth or bridges ASA Classification *see protocol: CLASS III-Severe systemic disease Plan of Care: Pt appropriate candidate for procedure/moderate/conscious sedation , Risks/benefits of procedure/sedation discussed w/ patient/family
[2017-11-17] MEDS: Diphenoxylate/Atropine 1 TAB TABLET PO PRN (09:35)
[2017-11-17] MEDS: D5% in 0.45% NACL w KCl 20 MEQ/1,000 ML MLS IVC SCH (09:42)
[2017-11-17] MEDS: traMADol 50 MG TABLET PO PRN ×3 (14:05→20:45)
--- NOTE | 2017-11-17 14:24 | General Surgery Progress Note ---
Date of Encounter: 11/17/17 Time of Encounter: 14:22 - Assessment and Plan (1) Dehydration Current Visit: Yes Status: Acute 62F s/p sigmoid colectomy with diverting loop ileostomy admitted secondary to inability to keep up with ileostomy output; currently with 2.3L from ileostomy; goal is ~ 1L;j s/p EGD/puch enteroscopy for evalution of LGIB; had gastritis and the beginnings of portal gastropathy pain control, ideally non narcotic activity as tolerated discussed with patient the need for her to keep up with ileostomy output; i have no doubt she is eating per her normal, but it is not enough. not only fluid rogers, but also in regard to her nutrition and healing capabilities. discussed briefly my recommendation for a G tube; patient is not happy about that idea. will allow a few days prove if she can keep up; will plan for a family meeting on 11/18 (2) Leak of anastomosis between gastrointestinal structures Current Visit: Yes Status: Acute small contained leak of colo-rectal anastamosis; patient is non septic and diverted will plan to keep the patient diverted; repeat study in 6-8 weeks to assess for healing encouraged PO intake will check pre-albumin discussed with patient and family concerning possible PEG tube Subjective Patient reports: no new complaints Objective Vital Signs - Last 8 Hours Temp Pulse Resp BP Pulse Ox 11/17/17 10:45 97.8 F 75 16 142/86 99 11/17/17 07:56 98.8 F 84 17 133/75 100 11/17/17 06:52 98.8 F 86 17 140/86 99 Intake and Output 11/16/17 11/17/17 11/17/17 23:59 07:59 15:59 Intake Total 1000 / 1000 0 / 0 Output Total 1050 / 1050 900 / 900 600 / 600 Balance -50 / -50 -900 / -900 -600 / -600 Intake: IV Fluids 1000 / 1000 0.9 % Sodium Chloride 1,000 ML 1000 / 1000 @ 75 mls/hr IVC .[id number] [facility] Rx #:[id number] Oral 0 / 0 Output: Urine 150 / 150 200 / 200 Stool 900 / 900 700 / 700 600 / 600 Other: Stool Size Moderate Stool Consistency liquid liquid Stool Color Yellow Weight 51.7 kg Blood Glucose* 87 Patient Weight 11/17/17 23:59 Weight 51.7 kg - General physical appearance no distress - Respiratory normal expansion, normal respiratory effort - Cardiovascular Cardiovascular exam: Present: RRR - Abdomen Abdomen: Present: soft - Incision Incision: Present: clean and dry - Neurologic CN 2-12 grossly intact - Musculoskeletal normal posture - Psychiatric oriented to time, oriented to person, oriented to place - Labs 11/16/17 06:26 11/17/17 06:29 Diabetes panel 11/17/17 Range/Units 06:29 Sodium 139 (136-145) mEq/L Potassium 4.1 (3.5-5.1) mEq/L Chloride 119 H (98-107) mEq/L Carbon Dioxide 14 L (23-29) mEq/L BUN 10 (8-23) mg/dL Creatinine 0.77 (0.60-1.20) mg/dL Glucose 92 (70-105) mg/dL Calcium 8.1 L (8.6-10.3) mg/dL Calcium panel 11/17/17 Range/Units 06:29 Calcium 8.1 L (8.6-10.3) mg/dL Phosphorus 2.3 L (2.7-4.5) mg/dL Pituitary panel 11/17/17 Range/Units 06:29 Sodium 139 (136-145) mEq/L Potassium 4.1 (3.5-5.1) mEq/L Chloride 119 H (98-107) mEq/L Carbon Dioxide 14 L (23-29) mEq/L BUN 10 (8-23) mg/dL Creatinine 0.77 (0.60-1.20) mg/dL Glucose 92 (70-105) mg/dL Calcium 8.1 L (8.6-10.3) mg/dL Adrenal panel 11/17/17 Range/Units 06:29 Sodium 139 (136-145) mEq/L Potassium 4.1 (3.5-5.1) mEq/L Chloride 119 H (98-107) mEq/L Carbon Dioxide 14 L (23-29) mEq/L BUN 10 (8-23) mg/dL Creatinine 0.77 (0.60-1.20) mg/dL Glucose 92 (70-105) mg/dL Calcium 8.1 L (8.6-10.3) mg/dL - VTE Reasons for not Prescribing Prophylaxis: Medical contraindication (Active GI bleed/anemia) Documentation of Mechanical Device: Intermittent pneumatic compression device Consult Discharge Plan - Plan Referrals: Que Corley DO [Resident] - 11/21/17 10:15 am
--- NOTE | 2017-11-17 18:33 | Internal Med Progress Note ---
Date of Encounter: 11/17/17 Time of Encounter: 17:35 - Assessment and plan (1) Essential hypertension Current Visit: Yes Status: Chronic Assessment and plan: Hypotension improved. Monitor vitals closely. No indication for antihypertensives as patient BP running lower/normal limits. (2) Acute kidney failure Current Visit: Yes Status: Resolved Assessment and plan: Resolved. Qualifiers: Acute renal failure type: unspecified Qualified Code(s): N17.9 - Acute kidney failure, unspecified (3) GI bleed Current Visit: Yes Status: Acute Assessment and plan: Patient has colostomy, Hemoglobin stable Bleeding resolved. Monitor and trasnfuse as needed. Currently no indication for transfusion. Continue IV protonix BID Management per Gen Surgery Qualifiers: GI bleed type/associated pathology: unspecified gastrointestinal hemorrhage type Qualified Code(s): K92.2 - Gastrointestinal hemorrhage, unspecified (4) S/P colectomy Current Visit: Yes Status: Chronic Assessment and plan: General surgery consulted; appreciate input. Plan is for reversal colostomy at some point (5) Hepatitis C Current Visit: Yes Status: Chronic Assessment and plan: Continue management as outpatient. Qualifiers: Viral hepatitis chronicity: chronic Hepatic coma status: without hepatic coma Qualified Code(s): B18.2 - Chronic viral hepatitis C (6) Hypokalemia Current Visit: Yes Status: Resolved Assessment and plan: Resolved. Replace as needed (7) Hyponatremia Current Visit: Yes Status: Acute Assessment and plan: Improved. Nephrology consulted; appreciate input. Continue IV NS as management by nephrology. Recheck BMP in AM. (8) Poor fluid intake Current Visit: Yes Status: Resolved Assessment and plan: Resolved. Management as per above. Continue diet as tolerated. (9) Metabolic acidosis Current Visit: Yes Status: Acute Assessment and plan: Resolved. Nephrology consulted;signed off as this has resolved. (10) DVT prophylaxis Current Visit: Yes Status: Acute Assessment and plan: No anticoagulation due to GI bleed and anemia. Continue SCDs. - Time Spent With Patient Total time spent is greater than 50% in coordination of care (as documented) at patient's floor/unit and/or counseling patient: - Subjective Interval history: No acute issues. no acute events. She has some complaints of epigastric pain denies, fevers/chills, n/v. - Constitutional Vitals: Temp Pulse Resp BP Pulse Ox 98.3 F 75 17 133/74 100 11/17/17 15:46 11/17/17 15:46 11/17/17 15:46 11/17/17 15:46 11/17/17 15:46 General appearance: Present: cooperative, A&O X 3, pleasant, no acute distress, answers questions appropriately Exam: CVS: RRR Lungs; CTAB ABD: colostomy in place, incisional site c/d/i Ext: no edema Internal Medicine: Result - Labs CBC & Chem 7: 11/16/17 06:26 11/17/17 06:29 Labs: BMP 11/17/17 06:29 Sodium 139 Potassium 4.1 Chloride 119 H Carbon Dioxide 14 L BUN 10 Creatinine 0.77 Glucose 92 Calcium 8.1 L - ABG Interpretation ABG results: PT/INR, D-dimer PT 14.2 Seconds (9.4-12.1) H 11/09/17 16:13 - VTE Reasons for not Prescribing Prophylaxis: Medical contraindication (Active GI bleed/anemia) Documentation of Mechanical Device: Intermittent pneumatic compression device Consult Discharge Plan - Plan Referrals: Que Corley DO [Resident] - 11/21/17 10:15 am
[2017-11-18] MEDS: Diphenoxylate/Atropine 1 TAB TABLET PO PRN (00:36)
[2017-11-18] MEDS: D5% in 0.45% NACL w KCl 20 MEQ/1,000 ML MLS IVC SCH ×2 (00:38→19:50)
[2017-11-18 04:58] LABS: BUN/Creatinine Ratio 11 (6-26); Blood Urea Nitrogen 9 mg/dL (8-23); Calcium 7.7 mg/dL (8.6-10.3); Carbon Dioxide 17 mEq/L (23-29); Chloride 117 mEq/L (98-107); Glucose 94 mg/dL (70-105); Osmolality,Calculated 280 (280-300); Potassium 3.9 mEq/L (3.5-5.1); Sodium 136 mEq/L (136-145); eGFR For African Americans > 60 (> 60); eGFR For Non-African Americans > 60 (> 60)
[2017-11-18] MEDS: *HR* Enoxaparin 40 MG/0.4 ML SYRINGE SQ SCH (05:55)
[2017-11-18] MEDS: Pantoprazole 40 MG VIAL IVP SCH ×2 (05:55→18:36)
[2017-11-18] MEDS ORDERED: Sodium Phosphate 30 MMOL in D5% in Water 100 ML IVPB ONE (10:02)
--- NOTE | 2017-11-18 10:05 | Internal Med Progress Note ---
Date of Encounter: 11/18/17 Time of Encounter: 09:58 - Assessment and plan (1) Essential hypertension Current Visit: Yes Status: Chronic Assessment and plan: Hypotension improved. Monitor vitals closely. No indication for antihypertensives as patient BP now are normal (2) Acute kidney failure Current Visit: Yes Status: Resolved Assessment and plan: Resolved. Continue nephroprotective strategy Qualifiers: Acute renal failure type: unspecified Qualified Code(s): N17.9 - Acute kidney failure, unspecified (3) GI bleed Current Visit: Yes Status: Acute Assessment and plan: Patient has colostomy, Gastritis seen on EGD She has portal hypertensive gastropathy - no varicies noted in EGD. Hemoglobin has remained stable Monitor and trasnfuse as needed. Continue IV protonix BID Management per Gen Surgery Qualifiers: GI bleed type/associated pathology: unspecified gastrointestinal hemorrhage type Qualified Code(s): K92.2 - Gastrointestinal hemorrhage, unspecified (4) S/P colectomy Current Visit: Yes Status: Chronic Assessment and plan: General surgery consulted; appreciate input. Plan is for reversal colostomy at some point (5) Hepatitis C Current Visit: Yes Status: Chronic Assessment and plan: Continue management as outpatient. Qualifiers: Viral hepatitis chronicity: chronic Hepatic coma status: without hepatic coma Qualified Code(s): B18.2 - Chronic viral hepatitis C (6) Hypokalemia Current Visit: Yes Status: Resolved Assessment and plan: Resolved. Replace as needed (7) Hyponatremia Current Visit: Yes Status: Resolved Assessment and plan: Resolved. (8) DVT prophylaxis Current Visit: Yes Status: Acute Assessment and plan: No anticoagulation due to GI bleed and anemia. Continue SCDs. (9) Hypocalcemia Current Visit: Yes Status: Acute Assessment and plan: Will check ionized calcium, patient has hypoalbuminemia, will like to have better reflection of true calcium levels. - Time Spent With Patient Total time spent is greater than 50% in coordination of care (as documented) at patient's floor/unit and/or counseling patient: - Subjective Interval history: No acute issues. no acute events. Epigastric pain improved. - Constitutional Vitals: Temp Pulse Resp BP Pulse Ox 98.3 F 61 17 123/75 100 11/18/17 06:36 11/18/17 06:36 11/18/17 06:36 11/18/17 06:36 11/18/17 06:36 General appearance: Present: cooperative, A&O X 3, pleasant, no acute distress, answers questions appropriately Exam: CVS: RRR Lungs; CTAB ABD: colostomy in place, incisional site c/d/i Ext: no edema Internal Medicine: Result - Labs CBC & Chem 7: 11/16/17 06:26 11/18/17 04:10 Labs: BMP 11/18/17 04:10 Sodium 136 Potassium 3.9 Chloride 117 H Carbon Dioxide 17 L BUN 9 Creatinine 0.81 Glucose 94 Calcium 7.7 L - ABG Interpretation ABG results: PT/INR, D-dimer PT 14.2 Seconds (9.4-12.1) H 11/09/17 16:13 - VTE Reasons for not Prescribing Prophylaxis: Medical contraindication (Active GI bleed/anemia) Documentation of Mechanical Device: Intermittent pneumatic compression device Consult Discharge Plan - Plan Referrals: Que Corley DO [Resident] - 11/21/17 10:15 am
[2017-11-18] MEDS ORDERED: Ringers Solution, Lactated 1,000 ML IVC ONE (12:20)
[2017-11-18] MEDS: Diphenoxylate/Atropine 1 TAB TABLET PO SCH ×3 (14:52→19:51)
[2017-11-18 15:05] LABS: VBG Ionized Calcium 1.18 mmol/L (1.15-1.35)
--- NOTE | 2017-11-18 18:05 | General Surgery Progress Note ---
Date of Encounter: 11/18/17 Time of Encounter: 18:03 - Assessment and Plan (1) Dehydration Current Visit: Yes Status: Acute 62F s/p sigmoid colectomy with diverting loop ileostomy admitted secondary to inability to keep up with ileostomy output; currently with 2+L from ileostomy; goal is ~ 1L;j s/p EGD/puch enteroscopy for evalution of LGIB; had gastritis and the beginnings of portal gastropathy long discussion with family concerning feeding tube. Decided to give patient a chance to keep up with ileostomy output diet as tolerated; encourage fluid intake replete lytes pain control activity as tolerated (2) Leak of anastomosis between gastrointestinal structures Current Visit: Yes Status: Acute small contained leak of colo-rectal anastamosis; patient is non septic and diverted will plan to keep the patient diverted; repeat study in 6-8 weeks to assess for healing encouraged PO intake will check pre-albumin discussed with patient and family concerning possible PEG tube; will allow patient to prove herself Subjective Patient reports: no new complaints Objective Vital Signs - Last 8 Hours Temp Pulse Resp BP Pulse Ox 11/18/17 15:32 98.4 F 71 16 121/74 100 11/18/17 10:05 98.1 F 65 16 122/80 97 Intake and Output 11/18/17 11/18/17 11/18/17 07:59 15:59 23:59 Intake Total 240 / 240 480 / 480 1160 / 1160 Output Total 400 / 400 600 / 600 200 / 200 Balance -160 / -160 -120 / -120 960 / 960 Intake: IV Fluids 1160 / 1160 Lactated Ringers 1,000 ML @ 1000 / 1000 3750 mls/hr IVC .Q16M ONE Rx#: [id number] Magnesium Sulfate Premix 2gm/ 50 / 50 50mL 2 gm In 50 ml @ 48.077 mls /hr IVPB ONCE ONE Rx#: [id number] Sodium Phosphate 30 MMOL In 110 / 110 Dextrose 5% 100 ML @ 16 mls/hr IVPB ONCE ONE Rx#:[id number] Oral 240 / 240 480 / 480 Output: Urine 0 / 0 100 / 100 200 / 200 Stool 400 / 400 500 / 500 Other: Meal Breakfast Percent of Meal Consumed 85% Stool Consistency loose liquid Stool Color Brown Brown # Voids 1 - General physical appearance no distress - Respiratory normal expansion, normal respiratory effort - Cardiovascular Cardiovascular exam: Present: RRR - Abdomen Abdomen: Present: soft - Integumentary no rash - Neurologic CN 2-12 grossly intact - Musculoskeletal normal posture - Psychiatric oriented to time, oriented to person, oriented to place - Labs 11/16/17 06:26 11/18/17 04:10 Diabetes panel 11/18/17 Range/Units 04:10 Sodium 136 (136-145) mEq/L Potassium 3.9 (3.5-5.1) mEq/L Chloride 117 H (98-107) mEq/L Carbon Dioxide 17 L (23-29) mEq/L BUN 9 (8-23) mg/dL Creatinine 0.81 (0.60-1.20) mg/dL Glucose 94 (70-105) mg/dL Calcium 7.7 L (8.6-10.3) mg/dL Calcium panel 11/18/17 Range/Units 04:10 Calcium 7.7 L (8.6-10.3) mg/dL Pituitary panel 11/18/17 Range/Units 04:10 Sodium 136 (136-145) mEq/L Potassium 3.9 (3.5-5.1) mEq/L Chloride 117 H (98-107) mEq/L Carbon Dioxide 17 L (23-29) mEq/L BUN 9 (8-23) mg/dL Creatinine 0.81 (0.60-1.20) mg/dL Glucose 94 (70-105) mg/dL Calcium 7.7 L (8.6-10.3) mg/dL Adrenal panel 11/18/17 Range/Units 04:10 Sodium 136 (136-145) mEq/L Potassium 3.9 (3.5-5.1) mEq/L Chloride 117 H (98-107) mEq/L Carbon Dioxide 17 L (23-29) mEq/L BUN 9 (8-23) mg/dL Creatinine 0.81 (0.60-1.20) mg/dL Glucose 94 (70-105) mg/dL Calcium 7.7 L (8.6-10.3) mg/dL - VTE Reasons for not Prescribing Prophylaxis: Medical contraindication (Active GI bleed/anemia) Documentation of Mechanical Device: Intermittent pneumatic compression device Consult Discharge Plan - Plan Referrals: Que Corley DO [Resident] - 11/21/17 10:15 am
[2017-11-18] MEDS: traMADol 50 MG TABLET PO PRN (18:39)
[2017-11-18 19:16] LABS: Magnesium 1.5 mg/dL (1.6-2.6); Phosphorous 4.3 mg/dL (2.7-4.5)
[2017-11-19] MEDS: *HR* Enoxaparin 40 MG/0.4 ML SYRINGE SQ SCH (05:19)
[2017-11-19] MEDS: Pantoprazole 40 MG VIAL IVP SCH ×2 (05:19→17:06)
[2017-11-19 06:59] LABS: Magnesium 1.3 mg/dL (1.6-2.6); Phosphorous 3.1 mg/dL (2.7-4.5)
[2017-11-19] MEDS: Diphenoxylate/Atropine 1 TAB TABLET PO SCH ×4 (08:17→19:59)
[2017-11-19] MEDS: D5% in 0.45% NACL w KCl 20 MEQ/1,000 ML MLS IVC SCH ×2 (08:23→21:37)
--- NOTE | 2017-11-19 08:40 | Internal Med Progress Note ---
Date of Encounter: 11/19/17 Time of Encounter: 08:38 - Assessment and plan (1) Essential hypertension Current Visit: Yes Status: Chronic Assessment and plan: Hypotension improved. Vital signs are within normal limits without antihypertensives. (2) Acute kidney failure Current Visit: Yes Status: Resolved Assessment and plan: Resolved. Continue nephroprotective strategy Qualifiers: Acute renal failure type: unspecified Qualified Code(s): N17.9 - Acute kidney failure, unspecified (3) GI bleed Current Visit: Yes Status: Acute Assessment and plan: Patient has colostomy, Gastritis seen on EGD She has portal hypertensive gastropathy - no varicies noted in EGD. Hemoglobin trended during this admission showed to be stable Continue IV protonix BID Management per Gen Surgery Qualifiers: GI bleed type/associated pathology: unspecified gastrointestinal hemorrhage type Qualified Code(s): K92.2 - Gastrointestinal hemorrhage, unspecified (4) S/P colectomy Current Visit: Yes Status: Chronic Assessment and plan: Plan is for reversal colostomy at some point Management per Surgery. (5) Hepatitis C Current Visit: Yes Status: Chronic Assessment and plan: No acute issues currently Patient should continue management as outpatient Qualifiers: Viral hepatitis chronicity: chronic Hepatic coma status: without hepatic coma Qualified Code(s): B18.2 - Chronic viral hepatitis C (6) Hypokalemia Current Visit: Yes Status: Resolved Assessment and plan: Resolved. Replace as needed (7) Hyponatremia Current Visit: Yes Status: Resolved Assessment and plan: review of yesterday sodium levels shows resolved. (8) Hypocalcemia Current Visit: Yes Status: Acute Assessment and plan: Ionized calcium within normal limits. (9) DVT prophylaxis Current Visit: Yes Status: Acute Assessment and plan: Continue Lovenox Sq 40 mg daily - Time Spent With Patient Total time spent is greater than 50% in coordination of care (as documented) at patient's floor/unit and/or counseling patient: - Subjective Interval history: No acute issues. no acute events. Eating breakfast with good appetite She tells me this AM that patient is receptive to PEG tube. Denies fevers/chills, n/v. - Constitutional Vitals: Temp Pulse Resp BP Pulse Ox 99.2 F 69 14 116/66 100 11/19/17 07:46 11/19/17 07:46 11/19/17 07:46 11/19/17 07:46 11/19/17 07:46 General appearance: Present: cooperative, A&O X 3, pleasant, no acute distress, answers questions appropriately Exam: CVS: RRR Lungs: CTAB Abd: dressing c/d/i, colostomy site clean, soft, nt/nd Ext: no edema. Internal Medicine: Result - Labs CBC & Chem 7: 11/16/17 06:26 11/18/17 04:10 - ABG Interpretation ABG results: PT/INR, D-dimer PT 14.2 Seconds (9.4-12.1) H 11/09/17 16:13 - VTE Reasons for not Prescribing Prophylaxis: Medical contraindication (Active GI bleed/anemia) Documentation of Mechanical Device: Intermittent pneumatic compression device Consult Discharge Plan - Plan Referrals: Que Corley DO [Resident] - 11/21/17 10:15 am
--- NOTE | 2017-11-19 11:28 | General Surgery Progress Note ---
Date of Encounter: 11/19/17 Time of Encounter: 11:27 - Assessment and Plan (1) Leak of anastomosis between gastrointestinal structures Current Visit: Yes Status: Acute Overall patient appears to be improving. Monitor I's and O's. Encouraging by mouth diet and fluid intake. No new changes at this time. Subjective Patient reports: other (Patient states that she was able to eat her full breakfast. No nausea, vomiting. Ostomy has been emptied twice so far today) Objective Vital Signs - Last 8 Hours Temp Pulse Resp BP Pulse Ox 11/19/17 07:46 99.2 F 69 14 116/66 100 11/19/17 04:51 99.2 F 77 16 114/66 98 Intake and Output 11/18/17 11/19/17 11/19/17 23:59 07:59 15:59 Intake Total 3180 / 3180 0 / 0 205 / 205 Output Total 1000 / 1000 1400 / 1400 300 / 300 Balance 2180 / 2180 -1400 / -1400 -95 / -95 Intake: IV Fluids 3060 / 3060 25 / 25 KCl 20mEq IN D5%-0.45 NACL 20 1900 / 1900 25 / 25 meq In 1,000 ml @ 75 mls/hr IVC .[id number] [facility] Rx#:[id number] Lactated Ringers 1,000 ML @ 1000 / 1000 3750 mls/hr IVC .Q16M ONE Rx#: [id number] Magnesium Sulfate Premix 2gm/ 50 / 50 50mL 2 gm In 50 ml @ 48.077 mls /hr IVPB ONCE ONE Rx#: [id number] Sodium Phosphate 30 MMOL In 110 / 110 Dextrose 5% 100 ML @ 16 mls/hr IVPB ONCE ONE Rx#:[id number] Oral 120 / 120 0 / 0 180 / 180 Output: Urine 500 / 500 650 / 650 100 / 100 Stool 500 / 500 750 / 750 200 / 200 Other: Meal Dinner Breakfast Percent of Meal Consumed 50% 100% Stool Consistency liquid liquid Stool Characteristics Normal for Patient Stool Color Brown Brown Brown Weight 51.5 kg Patient Weight 11/19/17 23:59 Weight 51.5 kg - General physical appearance well nourished, no distress - Respiratory normal expansion, normal respiratory effort - Abdomen Abdomen: Present: soft, non tender (Ostomy with liquid stool. Mucosa pink.) - Labs 11/16/17 06:26 11/18/17 04:10 Calcium panel 11/18/17 11/19/17 Range/Units 17:13 04:00 Phosphorus 4.3 3.1 (2.7-4.5) mg/dL - VTE Reasons for not Prescribing Prophylaxis: Medical contraindication (Active GI bleed/anemia) Documentation of Mechanical Device: Intermittent pneumatic compression device Consult Discharge Plan - Plan Referrals: Que Corley DO [Resident] - 11/21/17 10:15 am
[2017-11-19] MEDS: traMADol 50 MG TABLET PO PRN (19:58)
[2017-11-19] MEDS: Ibuprofen 600 MG TABLET PO PRN (21:37)
[2017-11-20] MEDS: *HR* Enoxaparin 40 MG/0.4 ML SYRINGE SQ SCH (05:10)
[2017-11-20] MEDS: Pantoprazole 40 MG VIAL IVP SCH ×2 (05:13→17:33)
[2017-11-20 06:50] LABS: Basophils % 0.7 %; Eosinophils # 0.1 K/mcL (0.0-0.6); Eosinophils % 3.3 %; Hematocrit 27.1 % (35.3-44.9); Hemoglobin 8.7 g/dL (11.5-15.4); Immature Granulocytes % 0.3 % (0-4); Lymphocytes % 34.2 %; Mean Corpuscular HGB Conc 32.1 g/dL (31.6-35.5); Mean Corpuscular Hemoglobin 30.4 pg (28.0-33.3); Mean Corpuscular Volume 94.8 fL (83.0-100.0); Monocytes # 0.4 K/mcL (0.0-1.3); Monocytes % 11.5 %; Neutrophils # 1.5 K/mcL (1.6-8.9); Red Blood Count 2.86 M/mcL (3.82-4.97); Red Cell Distribution Width 14.6 % (11.5-14.5)
[2017-11-20 06:52] LABS: Platelet Count 62 K/mcL (140-400)
[2017-11-20 07:09] LABS: BUN/Creatinine Ratio 7 (6-26); Blood Urea Nitrogen 7 mg/dL (8-23); Calcium 7.9 mg/dL (8.6-10.3); Carbon Dioxide 19 mEq/L (23-29); Chloride 113 mEq/L (98-107); Glucose 93 mg/dL (70-105); Magnesium 1.6 mg/dL (1.6-2.6); Osmolality,Calculated 278 (280-300); Phosphorous 3.1 mg/dL (2.7-4.5); Potassium 4.4 mEq/L (3.5-5.1); Sodium 135 mEq/L (136-145); eGFR For African Americans > 60 (> 60); eGFR For Non-African Americans 54 (> 60)
[2017-11-20] MEDS: Diphenoxylate/Atropine 1 TAB TABLET PO SCH ×4 (08:43→19:51)
--- NOTE | 2017-11-20 10:07 | Internal Med Progress Note ---
Date of Encounter: 11/20/17 Time of Encounter: 10:05 - Assessment and plan (1) Essential hypertension Current Visit: Yes Status: Chronic Assessment and plan: Hypotension improved. Vital signs are within normal limits without antihypertensives. (2) Acute kidney failure Current Visit: Yes Status: Resolved Assessment and plan: Resolved. Continue nephroprotective strategy Note today slight increase in creatinine and GFR slightly decreased to 54 though not an JACQUIE. For nephroprotection will change lovenox to heparin. If renal function actually worsens then DC ibuprofen. Qualifiers: Acute renal failure type: unspecified Qualified Code(s): N17.9 - Acute kidney failure, unspecified (3) GI bleed Current Visit: Yes Status: Acute Assessment and plan: Patient has colostomy, Gastritis seen on EGD She has portal hypertensive gastropathy - no varicies noted in EGD. Hemoglobin trended during this admission showed to be stable Continue IV protonix BID Management per Gen Surgery Qualifiers: GI bleed type/associated pathology: unspecified gastrointestinal hemorrhage type Qualified Code(s): K92.2 - Gastrointestinal hemorrhage, unspecified (4) S/P colectomy Current Visit: Yes Status: Chronic Assessment and plan: Plan is for reversal colostomy at some point Management per Surgery. (5) Hepatitis C Current Visit: Yes Status: Chronic Assessment and plan: No acute issues currently Patient should continue management as outpatient Qualifiers: Viral hepatitis chronicity: chronic Hepatic coma status: without hepatic coma Qualified Code(s): B18.2 - Chronic viral hepatitis C (6) Hypokalemia Current Visit: Yes Status: Resolved Assessment and plan: Resolved. Replace as needed (7) Hyponatremia Current Visit: Yes Status: Resolved Assessment and plan: review of yesterday sodium levels shows resolved. (8) Hypocalcemia Current Visit: Yes Status: Acute Assessment and plan: Ionized calcium within normal limits. (9) DVT prophylaxis Current Visit: Yes Status: Acute Assessment and plan: Continue Lovenox Sq 40 mg daily - Time Spent With Patient Total time spent is greater than 50% in coordination of care (as documented) at patient's floor/unit and/or counseling patient: - Subjective Interval history: No acute issues. no acute events. Stat she has good appetite - Constitutional Vitals: Temp Pulse Resp BP Pulse Ox 98.6 F 87 18 111/68 96 11/20/17 07:56 11/20/17 07:56 11/20/17 07:56 11/20/17 07:56 11/20/17 07:56 General appearance: Present: cooperative, A&O X 3, pleasant, no acute distress, answers questions appropriately Exam: CVS: RRR Lungs: CTAB Abd: dressing c/d/i, colostomy site clean, soft, nt/nd Ext: no edema. Internal Medicine: Result - Labs CBC & Chem 7: 11/20/17 06:00 11/20/17 06:00 Labs: Short CBC 11/20/17 Range/Units 06:00 WBC 3.0 L (4.3-11.1) K/mcL Hgb 8.7 L (11.5-15.4) g/dL Hct 27.1 L (35.3-44.9) % Plt Count 62 L (140-400) K/mcL Neutrophils # 1.5 L (1.6-8.9) K/mcL BMP 11/20/17 06:00 Sodium 135 L Potassium 4.4 Chloride 113 H Carbon Dioxide 19 L BUN 7 L Creatinine 1.03 Glucose 93 Calcium 7.9 L - ABG Interpretation ABG results: PT/INR, D-dimer PT 14.2 Seconds (9.4-12.1) H 11/09/17 16:13 - VTE Reasons for not Prescribing Prophylaxis: Medical contraindication (Active GI bleed/anemia) Documentation of Mechanical Device: Intermittent pneumatic compression device Consult Discharge Plan - Plan Referrals: Que Corley DO [Resident] - 11/21/17 10:15 am
[2017-11-20] MEDS: D5% in 0.45% NACL w KCl 20 MEQ/1,000 ML MLS IVC SCH (11:40)
--- NOTE | 2017-11-20 13:10 | General Surgery Progress Note ---
<JoeMauri Mccauley - Last Filed: 11/20/17 13:08> Date of Encounter: 11/20/17 Time of Encounter: 08:50 - Assessment and Plan (1) Dehydration Current Visit: Yes Status: Acute s/p sigmoid colectomy with diverting loop ileostomy admitted secondary to inability to keep up with ileostomy output 2200ml ileostomy output yesterday Diet as tolerated, encourage fluid intake Pain control Activity as tolerated Reevaluate options on Tuesday (2) Leak of anastomosis between gastrointestinal structures Current Visit: Yes Status: Acute Small contained leak of colo-rectal anastamosis Subjective Patient reports: no new complaints, still having pain, tolerating a regular diet , voiding w/o difficulty, bowel movement Narrative: Some abdominal pain last PM - responded well to medications. No pain today. No N /V. Objective Vital Signs - Last 8 Hours Temp Pulse Resp BP Pulse Ox 11/20/17 12:22 98.5 F 55 16 98/62 99 11/20/17 07:56 98.6 F 87 18 111/68 96 Intake and Output 11/19/17 11/20/17 11/20/17 23:59 07:59 15:59 Intake Total 1320 / 1320 0 / 0 1000 / 1000 Output Total 1650 / 1650 825 / 825 475 / 475 Balance -330 / -330 -825 / -825 525 / 525 Intake: IV Fluids 1000 / 1000 1000 / 1000 KCl 20mEq IN D5%-0.45 NACL 20 1000 / 1000 1000 / 1000 meq In 1,000 ml @ 75 mls/hr IVC .[id number] [facility] Rx#:[id number] Oral 320 / 320 0 / 0 Output: Urine 850 / 850 325 / 325 200 / 200 Stool 800 / 800 500 / 500 275 / 275 Other: Meal Dinner Percent of Meal Consumed 80% Stool Consistency loose liquid liquid liquid Stool Color Yellow Brown Brown Weight 53 kg Patient Weight 11/20/17 23:59 Weight 53 kg - General physical appearance no distress - Eyes normal ocular movement - Respiratory normal expansion, normal respiratory effort, clear to auscultation - Cardiovascular Cardiovascular exam: Present: RRR - Abdomen Abdomen: Present: bowel sounds present, soft, non tender (ostomy with liquid stool, mucosa pink) - Neurologic CN 2-12 grossly intact - Psychiatric oriented to time, oriented to person, oriented to place, speech is normal, memory intact - Labs 11/20/17 06:00 11/20/17 06:00 Diabetes panel 11/20/17 Range/Units 06:00 Sodium 135 L (136-145) mEq/L Potassium 4.4 (3.5-5.1) mEq/L Chloride 113 H (98-107) mEq/L Carbon Dioxide 19 L (23-29) mEq/L BUN 7 L (8-23) mg/dL Creatinine 1.03 (0.60-1.20) mg/dL Glucose 93 (70-105) mg/dL Calcium 7.9 L (8.6-10.3) mg/dL Calcium panel 11/20/17 Range/Units 06:00 Calcium 7.9 L (8.6-10.3) mg/dL Phosphorus 3.1 (2.7-4.5) mg/dL Pituitary panel 11/20/17 Range/Units 06:00 Sodium 135 L (136-145) mEq/L Potassium 4.4 (3.5-5.1) mEq/L Chloride 113 H (98-107) mEq/L Carbon Dioxide 19 L (23-29) mEq/L BUN 7 L (8-23) mg/dL Creatinine 1.03 (0.60-1.20) mg/dL Glucose 93 (70-105) mg/dL Calcium 7.9 L (8.6-10.3) mg/dL Adrenal panel 11/20/17 Range/Units 06:00 Sodium 135 L (136-145) mEq/L Potassium 4.4 (3.5-5.1) mEq/L Chloride 113 H (98-107) mEq/L Carbon Dioxide 19 L (23-29) mEq/L BUN 7 L (8-23) mg/dL Creatinine 1.03 (0.60-1.20) mg/dL Glucose 93 (70-105) mg/dL Calcium 7.9 L (8.6-10.3) mg/dL - VTE Reasons for not Prescribing Prophylaxis: Medical contraindication (Active GI bleed/anemia) Documentation of Mechanical Device: Intermittent pneumatic compression device Consult Discharge Plan - Plan Referrals: Que Corley DO [Resident] - 11/21/17 10:15 am <Tevin Gamino - Last Filed: 11/20/17 14:26> Date of Encounter: 11/20/17 - Assessment and Plan (1) Leak of anastomosis between gastrointestinal structures Current Visit: Yes Status: Acute Objective Vital Signs - Last 8 Hours Temp Pulse Resp BP Pulse Ox 11/20/17 12:22 98.5 F 55 16 98/62 99 11/20/17 07:56 98.6 F 87 18 111/68 96 Intake and Output 11/19/17 11/20/17 11/20/17 23:59 07:59 15:59 Intake Total 1320 / 1320 0 / 0 1120 / 1120 Output Total 1650 / 1650 825 / 825 975 / 975 Balance -330 / -330 -825 / -825 145 / 145 Intake: IV Fluids 1000 / 1000 1000 / 1000 KCl 20mEq IN D5%-0.45 NACL 20 1000 / 1000 1000 / 1000 meq In 1,000 ml @ 75 mls/hr IVC .[id number] [facility] Rx#:[id number] Oral 320 / 320 0 / 0 120 / 120 Output: Urine 850 / 850 325 / 325 400 / 400 Stool 800 / 800 500 / 500 575 / 575 Other: Meal Dinner Lunch Percent of Meal Consumed 80% 50% Stool Consistency loose liquid liquid liquid Stool Color Yellow Brown Brown Weight 53 kg Patient Weight 11/20/17 23:59 Weight 53 kg - Labs 11/20/17 06:00 11/20/17 06:00 Diabetes panel 11/20/17 Range/Units 06:00 Sodium 135 L (136-145) mEq/L Potassium 4.4 (3.5-5.1) mEq/L Chloride 113 H (98-107) mEq/L Carbon Dioxide 19 L (23-29) mEq/L BUN 7 L (8-23) mg/dL Creatinine 1.03 (0.60-1.20) mg/dL Glucose 93 (70-105) mg/dL Calcium 7.9 L (8.6-10.3) mg/dL Calcium panel 11/20/17 Range/Units 06:00 Calcium 7.9 L (8.6-10.3) mg/dL Phosphorus 3.1 (2.7-4.5) mg/dL Pituitary panel 11/20/17 Range/Units 06:00 Sodium 135 L (136-145) mEq/L Potassium 4.4 (3.5-5.1) mEq/L Chloride 113 H (98-107) mEq/L Carbon Dioxide 19 L (23-29) mEq/L BUN 7 L (8-23) mg/dL Creatinine 1.03 (0.60-1.20) mg/dL Glucose 93 (70-105) mg/dL Calcium 7.9 L (8.6-10.3) mg/dL Adrenal panel 11/20/17 Range/Units 06:00 Sodium 135 L (136-145) mEq/L Potassium 4.4 (3.5-5.1) mEq/L Chloride 113 H (98-107) mEq/L Carbon Dioxide 19 L (23-29) mEq/L BUN 7 L (8-23) mg/dL Creatinine 1.03 (0.60-1.20) mg/dL Glucose 93 (70-105) mg/dL Calcium 7.9 L (8.6-10.3) mg/dL - Attending Attestation I examined this patient and my medical decision-making was reviewed with the Resident Physician. I agree with the documented findings, disposition and treatment plan as described except to the extent set forth below. I reviewed the above assessment and evaluation and agree with the above plan.
[2017-11-20] MEDS: *HR* Heparin 5,000 UNIT/ML VIAL SQ SCH (17:33)
[2017-11-20] MEDS: Ibuprofen 600 MG TABLET PO PRN (18:47)
[2017-11-20] MEDS: traMADol 50 MG TABLET PO PRN (19:51)
[2017-11-21] MEDS: D5% in 0.45% NACL w KCl 20 MEQ/1,000 ML MLS IVC SCH ×2 (00:46→14:26)
[2017-11-21 05:28] LABS: Red Cell Distribution Width 14.6 % (11.5-14.5)
[2017-11-21 05:29] LABS: Basophils % 0.9 %; Eosinophils # 0.1 K/mcL (0.0-0.6); Eosinophils % 2.2 %; Hematocrit 27.2 % (35.3-44.9); Hemoglobin 8.7 g/dL (11.5-15.4); Immature Granulocytes % 0.3 % (0-4); Immature Platelets 3.3 % (1.1-6.1); Lymphocytes # 1.2 K/mcL (0.6-4.6); Lymphocytes % 36.5 %; Mean Corpuscular Hemoglobin 30.3 pg (28.0-33.3); Mean Corpuscular Volume 94.8 fL (83.0-100.0); Mean Platelet Volume 11.3 fL (9.4-12.4); Monocytes # 0.4 K/mcL (0.0-1.3); Monocytes % 12.3 %; Neutrophils # 1.5 K/mcL (1.6-8.9); Red Blood Count 2.87 M/mcL (3.82-4.97); Segmented Neutrophils % 47.8 %
[2017-11-21] MEDS: Pantoprazole 40 MG VIAL IVP SCH ×2 (05:30→18:04)
[2017-11-21] MEDS: *HR* Heparin 5,000 UNIT/ML VIAL SQ SCH ×2 (05:30→18:04)
[2017-11-21 05:33] LABS: Platelet Count 58 K/mcL (140-400)
[2017-11-21 05:52] LABS: BUN/Creatinine Ratio 7 (6-26); Blood Urea Nitrogen 7 mg/dL (8-23); Calcium 8.1 mg/dL (8.6-10.3); Carbon Dioxide 19 mEq/L (23-29); Chloride 115 mEq/L (98-107); Glucose 87 mg/dL (70-105); Magnesium 1.2 mg/dL (1.6-2.6); Osmolality,Calculated 279 (280-300); Phosphorous 3.1 mg/dL (2.7-4.5); Potassium 4.9 mEq/L (3.5-5.1); Sodium 136 mEq/L (136-145); eGFR For African Americans > 60 (> 60); eGFR For Non-African Americans 59 (> 60)
[2017-11-21] MEDS: Diphenoxylate/Atropine 1 TAB TABLET PO SCH ×4 (09:45→20:22)
--- NOTE | 2017-11-21 19:00 | Internal Med Progress Note ---
Date of Encounter: 11/21/17 Time of Encounter: 19:18 - Assessment and plan (1) Essential hypertension Current Visit: Yes Status: Chronic Assessment and plan: Hypotension improved. Vital signs are within normal limits without antihypertensives. (2) Acute kidney failure Current Visit: Yes Status: Resolved Assessment and plan: Resolved. Continue nephroprotective strategy Note today slight increase in creatinine and GFR slightly decreased to 54 though not an JACQUIE. For nephroprotection will change lovenox to heparin. If renal function actually worsens then DC ibuprofen. Qualifiers: Acute renal failure type: unspecified Qualified Code(s): N17.9 - Acute kidney failure, unspecified (3) GI bleed Current Visit: Yes Status: Acute Assessment and plan: Patient has colostomy, Gastritis seen on EGD She has portal hypertensive gastropathy - no varicies noted in EGD. Hemoglobin trended during this admission showed to be stable Continue IV protonix BID Management per Gen Surgery Qualifiers: GI bleed type/associated pathology: unspecified gastrointestinal hemorrhage type Qualified Code(s): K92.2 - Gastrointestinal hemorrhage, unspecified (4) S/P colectomy Current Visit: Yes Status: Chronic Assessment and plan: Plan is for reversal colostomy at some point Management per Surgery. (5) Hepatitis C Current Visit: Yes Status: Chronic Assessment and plan: No acute issues currently Patient should continue management as outpatient Qualifiers: Viral hepatitis chronicity: chronic Hepatic coma status: without hepatic coma Qualified Code(s): B18.2 - Chronic viral hepatitis C (6) Hypokalemia Current Visit: Yes Status: Resolved Assessment and plan: Resolved. Replace as needed (7) Hyponatremia Current Visit: Yes Status: Resolved Assessment and plan: review of yesterday sodium levels shows resolved. (8) Hypocalcemia Current Visit: Yes Status: Acute Assessment and plan: Ionized calcium within normal limits. (9) DVT prophylaxis Current Visit: Yes Status: Acute Assessment and plan: Continue Lovenox Sq 40 mg daily - Time Spent With Patient Total time spent is greater than 50% in coordination of care (as documented) at patient's floor/unit and/or counseling patient: - Subjective Interval history: No acute issues. no acute events - Constitutional Vitals: Temp Pulse Resp BP Pulse Ox 98.6 F 70 16 139/99 98 11/21/17 14:27 11/21/17 14:27 11/21/17 14:27 11/21/17 14:27 11/21/17 14:27 General appearance: Present: cooperative, A&O X 3, pleasant, no acute distress, answers questions appropriately Exam: CVS: RRR Lungs: CTAB Abd: dressing c/d/i, colostomy site clean, soft, nt/nd Ext: no edema. Internal Medicine: Result - Labs CBC & Chem 7: 11/21/17 05:15 11/21/17 05:15 Labs: Short CBC 11/21/17 Range/Units 05:15 WBC 3.2 L (4.3-11.1) K/mcL Hgb 8.7 L (11.5-15.4) g/dL Hct 27.2 L (35.3-44.9) % Plt Count 58 L (140-400) K/mcL Neutrophils # 1.5 L (1.6-8.9) K/mcL BMP 11/21/17 05:15 Sodium 136 Potassium 4.9 Chloride 115 H Carbon Dioxide 19 L BUN 7 L Creatinine 0.95 Glucose 87 Calcium 8.1 L - ABG Interpretation ABG results: PT/INR, D-dimer PT 14.2 Seconds (9.4-12.1) H 11/09/17 16:13 - VTE Reasons for not Prescribing Prophylaxis: Medical contraindication (Active GI bleed/anemia) Documentation of Mechanical Device: Intermittent pneumatic compression device Consult Discharge Plan - Plan Referrals: Que Corley DO [Resident] - 11/21/17 10:15 am
[2017-11-21] MEDS: traMADol 50 MG TABLET PO PRN (20:22)
[2017-11-22] MEDS: Ibuprofen 600 MG TABLET PO PRN (00:01)
[2017-11-22] MEDS: D5% in 0.45% NACL w KCl 20 MEQ/1,000 ML MLS IVC SCH ×2 (03:39→10:29)
[2017-11-22] MEDS: *HR* Heparin 5,000 UNIT/ML VIAL SQ SCH ×2 (05:30→17:49)
[2017-11-22] MEDS: Pantoprazole 40 MG VIAL IVP SCH ×2 (05:30→17:47)
[2017-11-22] MEDS: Diphenoxylate/Atropine 1 TAB TABLET PO SCH ×4 (10:27→20:30)
--- NOTE | 2017-11-22 11:14 | Internal Med Progress Note ---
Date of Encounter: 11/22/17 Time of Encounter: 11:00 - Assessment and plan (1) S/P colectomy Current Visit: Yes Status: Chronic Assessment and plan: 62-year-old female with history of COPD, CVA, hepatitis, hyperlipidemia, hypertension, colostomy due to recurrent diverticulitis status post sigmoidectomy with diverticular loop ileostomy admitted due to increased ostomy output. Plan Surgery is following Continue oral hydration and if needed intravenous Advance diet as per surgery Fluid sent for C. difficile stool DNA test (2) Hepatitis C Current Visit: Yes Status: Chronic Assessment and plan: No acute issues currently Patient should continue management as outpatient Qualifiers: Viral hepatitis chronicity: chronic Hepatic coma status: without hepatic coma Qualified Code(s): B18.2 - Chronic viral hepatitis C (3) Essential hypertension Current Visit: Yes Status: Chronic Assessment and plan: Hypotension improved. Vital signs are within normal limits without antihypertensives. (4) Acute kidney failure Current Visit: Yes Status: Resolved Qualifiers: Acute renal failure type: unspecified Qualified Code(s): N17.9 - Acute kidney failure, unspecified (5) GI bleed Current Visit: Yes Status: Acute Assessment and plan: Patient has colostomy, Gastritis seen on EGD She has portal hypertensive gastropathy - no varicies noted in EGD. Hemoglobin trended during this admission showed to be stable Continue protonix BID Management per Gen Surgery Qualifiers: GI bleed type/associated pathology: unspecified gastrointestinal hemorrhage type Qualified Code(s): K92.2 - Gastrointestinal hemorrhage, unspecified (6) DVT prophylaxis Current Visit: Yes Status: Acute Assessment and plan: Continue Lovenox Sq 40 mg daily - Time Spent With Patient Total time spent is greater than 50% in coordination of care (as documented) at patient's floor/unit and/or counseling patient: 25 - 35 minutes - Subjective Interval history: feeling well, no complaint, no events overnight - Constitutional Vitals: Temp Pulse Resp BP Pulse Ox 98.5 F 59 14 124/70 99 11/22/17 06:32 11/22/17 06:32 11/22/17 06:32 11/22/17 06:32 11/22/17 06:32 General appearance: Present: no acute distress Exam: Physical exam Gen: Comfortable, laying in bed, in no visible distress HEENT: Normocephalic, atraumatic. No conjunctival icterus. Moist oral mucosa. Neck: Supple Lungs: Clear to auscultation, no foreign sounds Heart: Normal S1-S2, no murmurs rubs or gallops Abdomen: Normoactive bowel sounds, no guarding rigidity or tenderness, ostomy site healing well Extremities: No edema clubbing or cyanosis Neuro: Alert oriented 3, no focal deficits Skin: No skin lesions Internal Medicine: Result - Labs CBC & Chem 7: 11/21/17 05:15 11/21/17 05:15 - ABG Interpretation ABG results: PT/INR, D-dimer PT 14.2 Seconds (9.4-12.1) H 11/09/17 16:13 - VTE Reasons for not Prescribing Prophylaxis: Medical contraindication (Active GI bleed/anemia) Documentation of Mechanical Device: Intermittent pneumatic compression device Consult Discharge Plan - Plan Referrals: Que Corley DO [Resident] - 11/21/17 10:15 am
[2017-11-22] MEDS: Ringers Solution, Lactated 1,000 ML IVC SCH (17:47)
--- NOTE | 2017-11-22 17:57 | General Surgery Progress Note ---
Date of Encounter: 11/22/17 Time of Encounter: 17:56 - Assessment and Plan (1) Dehydration Current Visit: Yes Status: Acute 62F s/p sigmoid colectomy with diverting loop ileostomy admitted secondary to inability to keep up with ileostomy output; improved output today, patient eating most of her meals; still encouraging patient to drink more; will reassess 24hr output; if we can get as close to 1L as possible and patient shows that she is able to keep up, then can be okay for discharge without gastrostomy tube; if not, will revisit that conversation; discussed with patient (2) Leak of anastomosis between gastrointestinal structures Current Visit: Yes Status: Acute small contained leak of colo-rectal anastamosis; patient is non septic and diverted will plan to keep the patient diverted; repeat study in 6-8 weeks to assess for healing encouraged PO intake will check pre-albumin discussed with patient and family concerning possible PEG tube; will allow patient to prove herself Subjective Patient reports: no new complaints, other (decreased ileostomy output with current antidiarrheal regimen) Objective Vital Signs - Last 8 Hours Temp Pulse Resp BP Pulse Ox 11/22/17 15:11 98.6 F 61 14 98/52 99 Intake and Output 11/22/17 11/22/17 11/22/17 07:59 15:59 23:59 Intake Total 1000 / 1000 240 / 240 Output Total 300 / 300 950 / 950 Balance 700 / 700 -710 / -710 Intake: IV Fluids 1000 / 1000 KCl 20mEq IN D5%-0.45 NACL 20 1000 / 1000 meq In 1,000 ml @ 75 mls/hr IVC .[id number] [facility] Rx#:[id number] Oral 0 / 0 240 / 240 Output: Urine 300 / 300 300 / 300 Stool 650 / 650 Other: Meal Breakfast Percent of Meal Consumed 100% Stool Consistency loose liquid Stool Color Green - General physical appearance no distress - Respiratory normal expansion, normal respiratory effort - Cardiovascular Cardiovascular exam: Present: RRR - Abdomen Abdomen: Present: soft, non tender - Incision Incision: Present: clean and dry - Rectum other (pink viable functioning ostomy) - Neurologic CN 2-12 grossly intact - Psychiatric oriented to time, oriented to person, oriented to place - Labs 11/21/17 05:15 11/21/17 05:15 - VTE Reasons for not Prescribing Prophylaxis: Medical contraindication (Active GI bleed/anemia) Documentation of Mechanical Device: Intermittent pneumatic compression device Consult Discharge Plan - Plan Referrals: Lucrecia Bal DO [Resident] - 12/02/17 10:00 am
[2017-11-22] MEDS ORDERED: *HR* LORazepam 0.5 MG TABLET PO ONE (19:55)
[2017-11-23] MEDS: traMADol 50 MG TABLET PO PRN ×2 (00:06→21:33)
[2017-11-23 04:36] LABS: Basophils % 0.6 %; Eosinophils # 0.1 K/mcL (0.0-0.6); Eosinophils % 1.6 %; Hematocrit 28.7 % (35.3-44.9); Hemoglobin 9.1 g/dL (11.5-15.4); Lymphocytes # 1.1 K/mcL (0.6-4.6); Lymphocytes % 34.2 %; Mean Corpuscular HGB Conc 31.7 g/dL (31.6-35.5); Mean Corpuscular Volume 94.7 fL (83.0-100.0); Mean Platelet Volume 11.8 fL (9.4-12.4); Monocytes # 0.3 K/mcL (0.0-1.3); Neutrophils # 1.7 K/mcL (1.6-8.9); Red Blood Count 3.03 M/mcL (3.82-4.97); Red Cell Distribution Width 15.2 % (11.5-14.5); Segmented Neutrophils % 54.6 %
[2017-11-23 04:38] LABS: Platelet Count 55 K/mcL (140-400)
[2017-11-23 04:49] LABS: BUN/Creatinine Ratio 8 (6-26); Blood Urea Nitrogen 7 mg/dL (8-23); Calcium 8.2 mg/dL (8.6-10.3); Carbon Dioxide 18 mEq/L (23-29); Chloride 114 mEq/L (98-107); Glucose 101 mg/dL (70-105); Magnesium 1.9 mg/dL (1.6-2.6); Osmolality,Calculated 278 (280-300); Potassium 4.6 mEq/L (3.5-5.1); Sodium 135 mEq/L (136-145); eGFR For African Americans > 60 (> 60); eGFR For Non-African Americans > 60 (> 60)
[2017-11-23] MEDS: Pantoprazole 40 MG VIAL IVP SCH ×2 (06:08→17:46)
[2017-11-23] MEDS: *HR* Heparin 5,000 UNIT/ML VIAL SQ SCH ×2 (06:08→17:46)
[2017-11-23] MEDS: Ringers Solution, Lactated 1,000 ML IVC SCH (07:00)
[2017-11-23] MEDS: Diphenoxylate/Atropine 1 TAB TABLET PO SCH ×4 (08:45→21:33)
--- NOTE | 2017-11-23 09:57 | General Surgery Progress Note ---
Date of Encounter: 11/23/17 Time of Encounter: 09:55 - Assessment and Plan (1) Dehydration Current Visit: Yes Status: Acute 62F s/p sigmoid colectomy with diverting loop ileostomy admitted secondary to inability to keep up with ileostomy output; improved output today, patient eating most of her meals; still encouraging patient to drink more; advised patient if she is able to take in two of the [place] pitchers per day for the next two days, I would feel comfortable with her discharge on tuesday; encourage PO intake d/c IVF activity as tolerated plan for home health to check in on patient while at home patient expressed understanding (2) Leak of anastomosis between gastrointestinal structures Current Visit: Yes Status: Acute small contained leak of colo-rectal anastamosis; patient is non septic and diverted will plan to keep the patient diverted; repeat study in 6-8 weeks to assess for healing encouraged PO intake will check pre-albumin discussed with patient and family concerning possible PEG tube; will allow patient to prove herself over the next two days Subjective Patient reports: no new complaints, other (lower ileostomy output; patient eating without issue, just low fluid intake) Objective Vital Signs - Last 8 Hours Temp Pulse Resp BP Pulse Ox 11/23/17 06:22 98.0 F 64 15 145/81 100 Intake and Output 11/22/17 11/23/17 11/23/17 23:59 07:59 15:59 Intake Total 583 / 583 517 / 517 172 / 172 Output Total 1900 / 1900 1000 / 1000 Balance -1317 / -1317 -483 / -483 172 / 172 Intake: IV Fluids 583 / 583 517 / 517 172 / 172 Lactated Ringers 1,000 ML @ 75 483 / 483 517 / 517 172 / 172 mls/hr IVC .[id number] [facility] Rx#: [id number] Magnesium Sulfate Premix 2gm/ 100 / 100 50mL 2 gm In 50 ml @ 50 mls/hr IVPB Q1H [facility] Rx#:[id number] Oral 0 / 0 0 / 0 Output: Urine 600 / 600 600 / 600 Stool 1300 / 1300 400 / 400 Other: Stool Consistency loose - General physical appearance no distress - Respiratory normal expansion, normal respiratory effort - Cardiovascular Cardiovascular exam: Present: RRR - Abdomen Abdomen: Present: soft - Neurologic CN 2-12 grossly intact - Musculoskeletal normal posture - Psychiatric oriented to time, oriented to person, oriented to place - Labs 11/23/17 03:48 11/23/17 03:48 Diabetes panel 11/23/17 Range/Units 03:48 Sodium 135 L (136-145) mEq/L Potassium 4.6 (3.5-5.1) mEq/L Chloride 114 H (98-107) mEq/L Carbon Dioxide 18 L (23-29) mEq/L BUN 7 L (8-23) mg/dL Creatinine 0.88 (0.60-1.20) mg/dL Glucose 101 (70-105) mg/dL Calcium 8.2 L (8.6-10.3) mg/dL Calcium panel 11/23/17 Range/Units 03:48 Calcium 8.2 L (8.6-10.3) mg/dL Pituitary panel 11/23/17 Range/Units 03:48 Sodium 135 L (136-145) mEq/L Potassium 4.6 (3.5-5.1) mEq/L Chloride 114 H (98-107) mEq/L Carbon Dioxide 18 L (23-29) mEq/L BUN 7 L (8-23) mg/dL Creatinine 0.88 (0.60-1.20) mg/dL Glucose 101 (70-105) mg/dL Calcium 8.2 L (8.6-10.3) mg/dL Adrenal panel 11/23/17 Range/Units 03:48 Sodium 135 L (136-145) mEq/L Potassium 4.6 (3.5-5.1) mEq/L Chloride 114 H (98-107) mEq/L Carbon Dioxide 18 L (23-29) mEq/L BUN 7 L (8-23) mg/dL Creatinine 0.88 (0.60-1.20) mg/dL Glucose 101 (70-105) mg/dL Calcium 8.2 L (8.6-10.3) mg/dL - VTE Reasons for not Prescribing Prophylaxis: Medical contraindication (Active GI bleed/anemia) Documentation of Mechanical Device: Intermittent pneumatic compression device Consult Discharge Plan - Plan Referrals: Lucrecia Bal DO [Resident] - 12/02/17 10:00 am
[2017-11-23] MEDS ORDERED: metroNIDAZOLE 500 MG TABLET PO SCH (11:45)
--- NOTE | 2017-11-23 13:21 | Internal Med Progress Note ---
Date of Encounter: 11/23/17 Time of Encounter: 11:15 - Assessment and plan (1) S/P colectomy Current Visit: Yes Status: Chronic Assessment and plan: 62-year-old female with history of COPD, CVA, hepatitis, hyperlipidemia, hypertension, colostomy due to recurrent diverticulitis status post sigmoidectomy with diverticular loop ileostomy admitted due to increased ostomy output. Plan Surgery is following Continue oral hydration. IV. The surgery today. Advance diet as per surgery (2) Hepatitis C Current Visit: Yes Status: Chronic Assessment and plan: No acute issues currently Patient should continue management as outpatient Qualifiers: Viral hepatitis chronicity: chronic Hepatic coma status: without hepatic coma Qualified Code(s): B18.2 - Chronic viral hepatitis C (3) Essential hypertension Current Visit: Yes Status: Chronic Assessment and plan: Hypotension improved. Vital signs are within normal limits without antihypertensives. (4) Acute kidney failure Current Visit: Yes Status: Resolved Assessment and plan: Resolved. Continue nephroprotective strategy Note today slight increase in creatinine and GFR slightly decreased to 54 though not an JACQUIE. For nephroprotection will change lovenox to heparin. If renal function actually worsens then DC ibuprofen. Qualifiers: Acute renal failure type: unspecified Qualified Code(s): N17.9 - Acute kidney failure, unspecified (5) GI bleed Current Visit: Yes Status: Acute Assessment and plan: Patient has colostomy, Gastritis seen on EGD She has portal hypertensive gastropathy - no varicies noted in EGD. Hemoglobin trended during this admission showed to be stable Continue protonix BID Management per Gen Surgery Qualifiers: GI bleed type/associated pathology: unspecified gastrointestinal hemorrhage type Qualified Code(s): K92.2 - Gastrointestinal hemorrhage, unspecified (6) DVT prophylaxis Current Visit: Yes Status: Acute Assessment and plan: Continue Lovenox Sq 40 mg daily - Time Spent With Patient Total time spent is greater than 50% in coordination of care (as documented) at patient's floor/unit and/or counseling patient: less than 15 minutes - Subjective Interval history: Feeling well, no complaint, no events overnight. - Constitutional Vitals: Temp Pulse Resp BP Pulse Ox 98.2 F 65 14 122/81 100 11/23/17 11:45 11/23/17 11:45 11/23/17 11:45 11/23/17 11:45 11/23/17 11:45 Exam: Physical exam Gen: Comfortable, laying in bed, in no visible distress HEENT: Normocephalic, atraumatic. No conjunctival icterus. Moist oral mucosa. Neck: Supple Lungs: Clear to auscultation, no foreign sounds Heart: Normal S1-S2, no murmurs rubs or gallops Abdomen: Normoactive bowel sounds, no guarding rigidity or tenderness, stoma site looks clean Extremities: No edema clubbing or cyanosis Neuro: Alert oriented 3, no focal deficits Skin: No skin lesions Internal Medicine: Result - Labs CBC & Chem 7: 11/23/17 03:48 11/23/17 03:48 Labs: Short CBC 11/23/17 Range/Units 03:48 WBC 3.1 L (4.3-11.1) K/mcL Hgb 9.1 L (11.5-15.4) g/dL Hct 28.7 L (35.3-44.9) % Plt Count 55 L (140-400) K/mcL Neutrophils # 1.7 (1.6-8.9) K/mcL BMP 11/23/17 03:48 Sodium 135 L Potassium 4.6 Chloride 114 H Carbon Dioxide 18 L BUN 7 L Creatinine 0.88 Glucose 101 Calcium 8.2 L - ABG Interpretation ABG results: PT/INR, D-dimer PT 14.2 Seconds (9.4-12.1) H 11/09/17 16:13 - VTE Reasons for not Prescribing Prophylaxis: Medical contraindication (Active GI bleed/anemia) Documentation of Mechanical Device: Intermittent pneumatic compression device Consult Discharge Plan - Plan Referrals: Lucrecia Bal DO [Resident] - 12/02/17 10:00 am
[2017-11-24] MEDS: Pantoprazole 40 MG VIAL IVP SCH (06:05)
[2017-11-24] MEDS: *HR* Heparin 5,000 UNIT/ML VIAL SQ SCH ×2 (06:05→17:00)
[2017-11-24] MEDS: Diphenoxylate/Atropine 1 TAB TABLET PO SCH ×4 (08:53→20:40)
--- NOTE | 2017-11-24 09:55 | General Surgery Progress Note ---
Date of Encounter: 11/24/17 Time of Encounter: 09:54 - Assessment and Plan (1) Dehydration Current Visit: Yes Status: Acute 62F s/p sigmoid colectomy with diverting loop ileostomy admitted secondary to inability to keep up with ileostomy output; improved output today, patient eating most of her meals; still encouraging patient to drink more; advised patient if she is able to take in two of the [employer] pitchers per day for the next two days, I would feel comfortable with her discharge on tuesday; cont to encourage PO intake; poss d/c on 11/25 (2) Leak of anastomosis between gastrointestinal structures Current Visit: Yes Status: Acute small contained leak of colo-rectal anastamosis; patient is non septic and diverted will plan to keep the patient diverted; repeat study in 6-8 weeks to assess for healing encouraged PO intake will check pre-albumin discussed with patient and family concerning possible PEG tube; will allow patient to prove herself over the next 24 hrs Subjective Patient reports: no new complaints, other (did ESPECIALLY WELL with PO intake) Objective Vital Signs - Last 8 Hours Temp Pulse Resp BP Pulse Ox 11/24/17 08:05 99.3 F 56 18 100/52 100 11/24/17 06:39 98.3 F 58 17 107/69 100 11/24/17 05:01 98.1 F 68 15 123/82 98 Intake and Output 11/23/17 11/24/17 11/24/17 23:59 07:59 15:59 Intake Total 0 / 0 120 / 120 480 / 480 Output Total 750 / 750 1500 / 1500 Balance -750 / -750 -1380 / -1380 480 / 480 Intake: Oral 0 / 0 120 / 120 480 / 480 Output: Urine 350 / 350 600 / 600 Stool 400 / 400 900 / 900 Other: Meal Breakfast Percent of Meal Consumed 100% Stool Consistency liquid Stool Color Brown Yellow Weight 53.5 kg Patient Weight 11/24/17 23:59 Weight 53.5 kg - General physical appearance no distress - Respiratory normal expansion, normal respiratory effort - Abdomen Abdomen: Present: soft, non tender - Neurologic CN 2-12 grossly intact - Psychiatric oriented to time, oriented to person, oriented to place - Labs 11/23/17 03:48 11/23/17 03:48 - VTE Reasons for not Prescribing Prophylaxis: Medical contraindication (Active GI bleed/anemia) Documentation of Mechanical Device: Intermittent pneumatic compression device Consult Discharge Plan - Plan Referrals: Lucrecia Bal DO [Resident] - 12/02/17 10:00 am
--- NOTE | 2017-11-24 11:23 | Internal Med Progress Note ---
Date of Encounter: 11/24/17 Time of Encounter: 11:15 - Assessment and plan (1) S/P colectomy Current Visit: Yes Status: Chronic Assessment and plan: 62-year-old female with history of COPD, CVA, hepatitis, hyperlipidemia, hypertension, colostomy due to recurrent diverticulitis status post sigmoidectomy with diverticular loop ileostomy admitted due to increased ostomy output. Plan Surgery is following Continue oral hydration. IV. The surgery today. Advance diet as per surgery Plan for discharge tomorrow (2) Hepatitis C Current Visit: Yes Status: Chronic Assessment and plan: No acute issues currently Patient should continue management as outpatient Qualifiers: Viral hepatitis chronicity: chronic Hepatic coma status: without hepatic coma Qualified Code(s): B18.2 - Chronic viral hepatitis C (3) Essential hypertension Current Visit: Yes Status: Chronic Assessment and plan: Hypotension improved. Vital signs are within normal limits without antihypertensives. (4) Acute kidney failure Current Visit: Yes Status: Resolved Assessment and plan: Resolved. Continue nephroprotective strategy Note today slight increase in creatinine and GFR slightly decreased to 54 though not an JACQUIE. For nephroprotection will change lovenox to heparin. If renal function actually worsens then DC ibuprofen. Qualifiers: Acute renal failure type: unspecified Qualified Code(s): N17.9 - Acute kidney failure, unspecified (5) GI bleed Current Visit: Yes Status: Acute Assessment and plan: Patient has colostomy, Gastritis seen on EGD She has portal hypertensive gastropathy - no varicies noted in EGD. Hemoglobin trended during this admission showed to be stable Continue protonix BID Management per Gen Surgery Qualifiers: GI bleed type/associated pathology: unspecified gastrointestinal hemorrhage type Qualified Code(s): K92.2 - Gastrointestinal hemorrhage, unspecified (6) DVT prophylaxis Current Visit: Yes Status: Acute Assessment and plan: Continue Lovenox Sq 40 mg daily - Time Spent With Patient Total time spent is greater than 50% in coordination of care (as documented) at patient's floor/unit and/or counseling patient: less than 15 minutes - Subjective Interval history: Feeling well, no complaint, no events overnight. - Constitutional Vitals: Temp Pulse Resp BP Pulse Ox 98.8 F 72 16 120/75 98 11/24/17 10:50 11/24/17 10:50 11/24/17 10:50 11/24/17 10:50 11/24/17 10:50 General appearance: Present: no acute distress Exam: Physical exam Gen: Comfortable, laying in bed, in no visible distress HEENT: Normocephalic, atraumatic. No conjunctival icterus. Moist oral mucosa. Neck: Supple Lungs: Clear to auscultation, no foreign sounds Heart: Normal S1-S2, no murmurs rubs or gallops Abdomen: Normoactive bowel sounds, no guarding rigidity or tenderness, stoma site looks clean Extremities: No edema clubbing or cyanosis Neuro: Alert oriented 3, no focal deficits Skin: No skin lesions Internal Medicine: Result - Labs CBC & Chem 7: 11/23/17 03:48 11/23/17 03:48 - ABG Interpretation ABG results: PT/INR, D-dimer PT 14.2 Seconds (9.4-12.1) H 11/09/17 16:13 - VTE Reasons for not Prescribing Prophylaxis: Medical contraindication (Active GI bleed/anemia) Documentation of Mechanical Device: Intermittent pneumatic compression device Consult Discharge Plan - Plan Referrals: Lucrecia Bal DO [Resident] - 12/02/17 10:00 am
[2017-11-24] MEDS: Cholestyramine 4 GM POWD.PACK PO SCH (16:58)
[2017-11-24] MEDS: traMADol 50 MG TABLET PO PRN ×2 (20:40→23:59)
[2017-11-25] MEDS: *HR* Heparin 5,000 UNIT/ML VIAL SQ SCH (06:15)
[2017-11-25] MEDS: Diphenoxylate/Atropine 1 TAB TABLET PO SCH (07:32)
[2017-11-25] MEDS: Cholestyramine 4 GM POWD.PACK PO SCH (07:32)
--- NOTE | 2017-11-25 09:49 | Discharge Summary ---
<Mauri Diaz - Last Filed: 11/25/17 10:19> - NOTES TO OUTPATIENT PROVIDER Notes to Outpatient Provider: Continue to encourage adequate PO intake, fiber, fluids, and nutrition. Surgery will reevaluate possibility of diverting loop takedown in the near future. Taking Lomotil, Loperamide, and Cholestyramine for bowel funtion - reevaluate with Dr. Frazier as out-patient Date of Encounter: 11/25/17 Time of Encounter: 09:51 - Discharge Diagnosis (1) Dehydration Priority: Primary Status: Acute (2) Leak of anastomosis between gastrointestinal structures Priority: Secondary Status: Acute (3) GI bleed Priority: Secondary Status: Acute Qualifiers: GI bleed type/associated pathology: unspecified gastrointestinal hemorrhage type Qualified Code(s): K92.2 - Gastrointestinal hemorrhage, unspecified (4) Acute kidney injury Priority: Secondary Status: Acute General Surgery Exam Initial Vital Signs Temp Pulse Resp BP Pulse Ox 97.7 F 108 14 85/57 98 11/09/17 14:32 11/09/17 14:32 11/09/17 14:32 11/09/17 14:32 11/09/17 14:32 - General physical appearance well developed, well nourished, no distress - Abdomen Abdomen general surgery: Present: bowel sounds present, soft, non tender ( ostomy pink) - Neurologic Present: CN 2-12 grossly intact, normal coordination - Psychiatric Psychiatric general surgery: Present: appropriate, oriented to person, oriented to place, oriented to time, speech is normal, memory intact - Hospital Course Hospital course: Ms. Jessica is a 62 year old female with PMH of COPD, CVA, hepatitis, HLD, HTN, recurrent diverticulitis status post cholecystectomy and sigmoidectomy with diverting loop ileostomy by Dr. Frazier, presented to [facility] with blood from her ileostomy bag, high out-put, and weakness. This is her second admission for complications with her ileostomy bag. Initially diagnosed with JACQUIE and dehydration. Patient was evaluated by nephrology who assisted in electrolyte management and fluid resuscitation. Her JACQUIE resolved and her labs and weakness improved. The patient had a contrast study showing a small contained leak in the colorectal anastomosis, therefore no surgery was indicated for takedown of the diverting ileostomy. Reevaluate for takedown in 6-8 weeks. Loperamide and lomotil were added to help with bowel function and ileostomy output. Her hgb was mildly low at 9 but remained stable. She did receive a small bowel enteroscopy that showed no evidence of bleeding. She continued to have high out- put, but it appears that much of this is due to her diet (high in sugar, low fiber, and low fluid intake). PEG tube was recommended to better control intake , but the patient and her family elected to not have the PEG tube inserted. Added Lomotil, Loperamide, and Cholestyramine to her regimen to help with her bowel function. She is to take these as prescribed until further evaluation by Dr. Frazier as an outpatient. The patient made some improvement in ability to get ileostomy out-put close to 1 L per day. Encourage her to drink 2 L of fluid and she was able to do this. As she is improving with her PO intake she can be discharged home. Will plan on discharge with home health to assist the patient with medication compliance, ileostomy care, intake and output monitoring, and PT /OT. - Time Spent with Patient Total time spent providing and/or coordinating discharge services: Greater than 30 minutes - Discharge Medications Prescriptions: Loperamide [Imodium] 2 mg PO Q4HR 12 Days #144 capsule Cholestyramine 4 gm PO TIDAC 30 Days #120 powd.pack Diphenoxylate/Atropine [Lomotil 2.5 mg/0.025 mg] 2 tab PO QID 12 Days #120 tablet Omeprazole [PriLOSEC] 20 mg PO DAILY #30 capsule.dr Home Medications: Diltiazem CD (24hr) [Cardizem CD] 180 mg PO DAILY 06/27/17 [History] Ibuprofen [Motrin] 800 mg PO Q8HR PRN #42 tablet 10/06/17 [Rx] OxyCODONE/APAP 5/325 [Percocet 5/325 MG] 1 each PO Q6HR PRN 7 Days #28 tablet [Rx] Ondansetron ODT [Zofran ODT] 4 mg SL Q6HR #15 tab.rapdis 10/28/17 [Rx] Famotidine [Pepcid] 40 mg PO DAILY 11/09/17 [History] Cholestyramine 4 gm PO TIDAC 30 Days #120 powd.pack 11/25/17 [Rx] Diphenoxylate/Atropine [Lomotil 2.5 mg/0.025 mg] 2 tab PO QID 12 Days #120 tablet 11/25/17 [Rx] Loperamide [Imodium] 2 mg PO Q4HR 12 Days #144 capsule 11/25/17 [Rx] Omeprazole [PriLOSEC] 20 mg PO DAILY #30 capsule. 11/25/17 [Rx] Allergies/Adverse Reactions: 3 Allergy/AdvReac Type Severity Reaction Status Date / Time Penicillins [PCN] Allergy Rash Verified 11/09/17 15:30 niacin AdvReac [place] Verified 11/09/17 15:30 duracef Allergy See Uncoded 11/09/17 15:30 Comments Date of admission: 11/09/17 21:37 Primary care physician: Ghanshyam Taylor Consults: 11/11/17 13:39 Consult to Wound Care [CONS] Routine Reason for Consult: patient needs assistance with ileostomy Call Completed: Yes 11/11/17 13:50 Consult to Invasive Line Access Team [CONS] Routine Reason for Consult: limited vascular access Line Type: EPIV 11/16/17 09:29 consult to ctrs [Consult to Nutrition] [CONS] Routine Comment: poor nutritional status; high ileostomy output Consulting Provider: NUTRITION Reason for Dietary Consult: Diet Education 11/23/17 12:00 Consult to Promotional Marketing Analyst [CONS] Routine Reason for SW Consult: discharge planning- will need home health care; tentative d/c 11/25/17 Discharging clinician: Mauri Diaz Anticipated date of discharge: 11/25/17 Procedures and tests throughout hospitalization: EGD/push enteroscopy: no evidence of bleeding, chronic gastritis, and portal hypertensive gastropathy Barium Enema: concern for small contained leak at level of colorectal anastomosis CT abd/pelvis: no acute findings - Impressions ITS Impressions Barium Enema 11/14/17 09:00 IMPRESSION: Findings concerning for a small contained leak at level of colorectal anastomosis. In retrospect, this finding is likely present on the 11/09/2017 CT exam (series 2, image 134). D/ / Fransico Verduzco MD / Fransico Verduzco MD Interpreting Provider: Fransico Verduzco MD - Patient Status Disposition: Home Health Service Condition: Fair Functional capacity at discharge: independent ambulation Overall status at discharge: patient is progressing back to baseline - Discharge Instructions Instructions: Deep Venous Thrombosis (DC) Follow Up With: Rafita Frazier MD [Non-Partnered Physician] - 12/05/17 9:00 am Lucrecia Bal DO [Resident] - 12/02/17 10:00 am Additional Instructions: 1. Goal of 2L of fluid intake per day 2. Eat plenty of fiber rich foods - vegetables, whole grains, etc 3. Record how much you eat and drink 4. Record how much out you have out from your ileostomy bag 5. Take your medications as prescribed: - Cholestyramine 4 mg three times daily (every 8 hours) - Lomotil 2 tabs four times daily (every 6 hours) - Loperamide 2 mg six times daily (every 4 hours) - Diet and Activity Activity: as per physical therapy, increase activity as tolerated Diet: advance to your usual diet <Rafita Frazier - Last Filed: 11/25/17 20:33> Date of Encounter: 11/25/17 - Discharge Diagnosis (1) Dehydration Status: Acute (2) Leak of anastomosis between gastrointestinal structures Status: Acute General Surgery Exam Initial Vital Signs Temp Pulse Resp BP Pulse Ox 97.7 F 108 14 85/57 98 11/09/17 14:32 11/09/17 14:32 11/09/17 14:32 11/09/17 14:32 11/09/17 14:32 - Hospital Course Hospital course: Ms. Jessica is a 62 year old female - Time Spent with Patient Total time spent providing and/or coordinating discharge services: Date of admission: 11/09/17 21:37 Primary care physician: Ghanshyam Taylor Consults: 11/11/17 13:39 Consult to Wound Care [CONS] Routine Reason for Consult: patient needs assistance with ileostomy Call Completed: Yes 11/11/17 13:50 Consult to Invasive Line Access Team [CONS] Routine Reason for Consult: limited vascular access Line Type: EPIV 11/16/17 09:29 consult to ctrs [Consult to Nutrition] [CONS] Routine Comment: poor nutritional status; high ileostomy output Consulting Provider: NUTRITION Reason for Dietary Consult: Diet Education 11/23/17 12:00 Consult to Promotional Marketing Analyst [CONS] Routine Reason for SW Consult: discharge planning- will need home health care; tentative d/c 11/25/17 - Impressions ITS Impressions Barium Enema 11/14/17 09:00 IMPRESSION: Findings concerning for a small contained leak at level of colorectal anastomosis. In retrospect, this finding is likely present on the 11/09/2017 CT exam (series 2, image 134). D/ / Fransico Verduzco MD / Fransico Verduzco MD Interpreting Provider: Fransico Verduzco MD - Attending Attestation I have personally seen and examined the patient. I have reviewed pertinent labs , imaging, progress notes, including this one. I agree with the above assessment and plan and wish to include the following... Had lengthy conversation with patient about... 1.) the importance of maintaining fluid intake to cover for fluid losses. She was advised to keep track, close track, of the ileostomy losses. In addition, she was also advised to eat as much as she could withstand for wound healing. 2.) The importance of taking the antidiarrheals on a regular schedule to assist with control of her ileostomy output 3.) Should she experience any symptoms of dehydration to call the office for further instruction The patient expressed understanding;
--- NOTE | 2017-11-25 10:18 | Physician Discharge Referral ---
Home Health/Hosp Referral Info Transfer to: Home Health (Following with Dr. Frazier (General Surgery)) Provider in Charge Post Discharge: Other - Diagnosis (1) Dehydration Priority: Primary Status: Acute (2) Leak of anastomosis between gastrointestinal structures Priority: Secondary Status: Acute - Respiratory Orders Smoking Cessation: Smoking cessation has been advised. For more information, call the [place] Tobacco Quit Line at 6-359-WXRO-NOW. - Services Needed Following services are medically necessary services: Nursing, Physical Therapy, Occupational Therapy Home Care Orders: Please assist/encourage patient with the followin. Medication adherence 2. Ileostomy care 3. Good record keeping of both oral intake and ostomy out-put 4. PT/OT - Transfer Medications Prescriptions: Loperamide [Imodium] 2 mg PO Q4HR 12 Days #144 capsule Cholestyramine 4 gm PO TIDAC 30 Days #120 powd.pack Diphenoxylate/Atropine [Lomotil 2.5 mg/0.025 mg] 2 tab PO QID 12 Days #120 tablet Omeprazole [PriLOSEC] 20 mg PO DAILY #30 capsule. [place] Medications: Diltiazem CD (24hr) [Cardizem CD] 180 mg PO DAILY 06/27/17 [History] Ibuprofen [Motrin] 800 mg PO Q8HR PRN #42 tablet 10/06/17 [Rx] OxyCODONE/APAP 5/325 [Percocet 5/325 MG] 1 each PO Q6HR PRN 7 Days #28 tablet [Rx] Ondansetron ODT [Zofran ODT] 4 mg SL Q6HR #15 tab.rapdis 10/28/17 [Rx] Famotidine [Pepcid] 40 mg PO DAILY 11/09/17 [History] Cholestyramine 4 gm PO TIDAC 30 Days #120 powd.pack 11/25/17 [Rx] Diphenoxylate/Atropine [Lomotil 2.5 mg/0.025 mg] 2 tab PO QID 12 Days #120 tablet 11/25/17 [Rx] Loperamide [Imodium] 2 mg PO Q4HR 12 Days #144 capsule 11/25/17 [Rx] Omeprazole [PriLOSEC] 20 mg PO DAILY #30 capsule. 11/25/17 [Rx] Allergies/Adverse Reactions: 3 Allergy/AdvReac Type Severity Reaction Status Date / Time Penicillins [PCN] Allergy Rash Verified 11/09/17 15:30 niacin AdvReac Flushing Verified 11/09/17 15:30 duracef Allergy See Uncoded 11/09/17 15:30 Comments Certification: Further, I certify that my clinical findings support that this patient is homebound (i.e. absences from home require considerable and taxing effort and are for medical reasons or pent[employer] services or infrequently or short duration when for other reasons) because: Homebound Reason: Leaving home requires considerable and taxing effort due to condition Attestation: My signature below is to certify that this patient is under my care and that I, or nurse practitioner, or a physician's child center assistant working with me, has a face-to -face encounter with this patient.
--- NOTE | 2017-11-25 11:04 | Internal Med Progress Note ---
Date of Encounter: 11/25/17 Time of Encounter: 09:00 - Assessment and plan (1) Acute kidney failure Current Visit: Yes Status: Resolved Assessment and plan: Renal function remains normal. Encouraged oral hydration to keep up with ostomy losses Qualifiers: Acute renal failure type: unspecified Qualified Code(s): N17.9 - Acute kidney failure, unspecified (2) S/P colectomy Current Visit: Yes Status: Chronic Assessment and plan: With ileostomy. Follow up with surgery as outpatient. Being discharged today. (3) DVT prophylaxis Current Visit: Yes Status: Acute (4) Hepatitis C Current Visit: Yes Status: Chronic Qualifiers: Viral hepatitis chronicity: chronic Hepatic coma status: without hepatic coma Qualified Code(s): B18.2 - Chronic viral hepatitis C (5) Essential hypertension Current Visit: Yes Status: Chronic Assessment and plan: Well-controlled (6) GI bleed Current Visit: Yes Status: Resolved Assessment and plan: Blood counts have been stable. Follow up with surgery as outpatient Qualifiers: GI bleed type/associated pathology: unspecified gastrointestinal hemorrhage type Qualified Code(s): K92.2 - Gastrointestinal hemorrhage, unspecified - Time Spent With Patient Total time spent is greater than 50% in coordination of care (as documented) at patient's floor/unit and/or counseling patient: - Subjective Interval history: Patient is doing better. Tolerating oral diet well. Denies any dizziness or lightheadedness. No abdominal pain at this time - Constitutional Vitals: Temp Pulse Resp BP Pulse Ox 98.7 F 63 14 114/62 100 11/25/17 06:42 11/25/17 06:42 11/25/17 06:42 11/25/17 06:42 11/25/17 06:42 General appearance: Present: cooperative, A&O X 3, no acute distress, answers questions appropriately - Respiratory Respiratory exam: Present: CTAB. Absent: accessory muscle use, rales, rhonchi, wheezes - Cardiovascular Cardiovascular exam: Present: RRR, +S1, +S2. Absent: diastolic murmur, gallop, rubs, systolic murmur - GI/Abdominal GI/Abdominal exam: Present: normal bowel sounds, soft, no peritoneal signs. Absent: distended, tenderness - Extremities Exam Extremities exam: Present: warm, radial pulses palpable and symmetrical. Absent : calf tenderness, cyanotic, pedal edema - Neurological Exam Neurological exam: Present: alert, oriented X3, no focal deficits, strengths equal and symetr throughout. Absent: facial droop, speech deficit Internal Medicine: Result - Labs CBC & Chem 7: 11/23/17 03:48 11/23/17 03:48 - ABG Interpretation ABG results: PT/INR, D-dimer PT 14.2 Seconds (9.4-12.1) H 11/09/17 16:13 - VTE Reasons for not Prescribing Prophylaxis: Medical contraindication (Active GI bleed/anemia) Documentation of Mechanical Device: Intermittent pneumatic compression device Consult Discharge Plan - Plan Additional Instructions: 1. Goal of 2L of fluid intake per day 2. Eat plenty of fiber rich foods - vegetables, whole grains, etc 3. Record how much you eat and drink 4. Record how much out you have out from your ileostomy bag 5. Take your medications as prescribed: - Cholestyramine 4 mg three times daily (every 8 hours) - Lomotil 2 tabs four times daily (every 6 hours) - Loperamide 2 mg six times daily (every 4 hours) Referrals: Rafita Frazier MD [Non-Partnered Physician] - 12/05/17 9:00 am Lucrecia Bal DO [Resident] - 12/02/17 10:00 am Prescriptions: Loperamide [Imodium] 2 mg PO Q4HR 12 Days #144 capsule Cholestyramine 4 gm PO TIDAC 30 Days #120 powd.pack Diphenoxylate/Atropine [Lomotil 2.5 mg/0.025 mg] 2 tab PO QID 12 Days #120 tablet Omeprazole [PriLOSEC] 20 mg PO DAILY #30 capsule.
[2017-11-25 11:27] VITALS: BP 107/64
== END 2017-11-25 13:23 | disposition home health service (06) | DRG 469 ==
LOC: EMEROO 14:30 → 2NNU 21:37 → 3ANU 11-14 16:37
PROVIDERS: ADMIT Internal Medicine; ATTEND Internal Medicine

== ENCOUNTER 2017-11-30 19:21 | Inpatient (IN) ==
--- NOTE | 2017-11-30 19:38 | Emergency Department Note ---
Disposition Clinical Impression: Increased ileostomy output Abdominal pain Qualifiers: Abdominal location: unspecified location Qualified Code(s): R10.9 - Unspecified abdominal pain Disposition: Admitted As Inpatient Condition: Fair Time of Disposition: 19:45 General Adult HPI - General Chief complaint: ED General Medical Stated complaint: urinary issues Time Seen by Provider: 11/30/17 19:29 Nursing Notes Reviewed: Yes Vital Signs Reviewed: Yes - History of Present Illness HPI Narrative: 62 year old female presents for evaluation of rapidly filling ileostomy bag. Reportedly is emptying this bag approximately every 30 minutes throughout the day. She notes that it fills rapidly after any by mouth intake. Early abdominal pain surrounding the ostomy site itself. She denies any red/pink/or blood contents of the ileostomy bag. She does have some associated generalized weakness. PMH: COPD, CVA, hepatitis see, hyperlipidemia, hypertension PSH: Sigmoidectomy with diverging loop ileostomy 10/03/17, cholecystectomy 10/27 No current antiplatelet or anticoagulant medications. Admitted 11/09/17 for rapidly filling ileostomy bag, dehydration, acute kidney injury, GI bleed as evidenced by blood in her ileostomy bag. ROS: Positive: As above Negative: Fever, chills, nausea, vomiting, chest pain, palpitations, unusual back pain, dysuria, melena, hematochezia. Pain Scale: 10 - Related Data Previous Rx's Medication Instructions Recorded Ibuprofen [Motrin] 800 mg PO Q8HR PRN #42 tablet 10/06/17 Cholestyramine 4 gm PO TIDAC 30 Days #120 11/25/17 powd.pack Diphenoxylate/Atropine [Lomotil 2 tab PO QID 12 Days #120 tablet 11/25/17 2.5 mg/0.025 mg] Loperamide [Imodium] 2 mg PO Q4HR 12 Days #144 capsule 11/25/17 Omeprazole [PriLOSEC] 20 mg PO DAILY #30 capsule. 11/25/17 Allergies Allergy/AdvReac Type Severity Reaction Status Date / Time Penicillins [PCN] Allergy Rash Verified 11/09/17 15:30 niacin AdvReac Flushing Verified 11/09/17 15:30 duracef Allergy See Uncoded 11/09/17 15:30 Comments All systems ED: reviewed and negative except as stated. Review of Systems: As Per HPI Past Medical History - Past Medical History Medical history: Reports: COPD, CVA, GERD, hepatitis, hyperlipidemia, hypertension, other Surgical history: Reports: colostomy, hysterectomy Psychiatric history: Reports: depression - Social History Smoking Status: Former smoker Smokeless Tobacco Status: No Alcohol use: Reports: none Drug use: Reports: none Physical Exam Vital Signs Reviewed General: Patient is alert, oriented, and in no acute distress. Patient appears older than stated age. Head: atraumatic, normocephalic Eye: normal appearance, no scleral icterus, no conjunctival injection ENT: mucous membranes moist, normal external ear exam Neck: normal inspection, trachea midline, full ROM Chest: normal inspection, symmetric chest rise Respiratory: Poor respiratory effort. Prolonged expiratory phase. Bilateral breath sounds are clear without wheezing, crackles, or rhonchi. Cardiovascular: Regular rate and rhythm. No clicks, rubs, gallops, or murmors. Normal heart sounds. Abdomen: Bowel sounds present normoactive. Abdomen is soft, nondistended. Mild tenderness surrounding her ostomy site which is clean without purulence with moist pink mucosa visible. No blood or melena in ostomy bag. No guarding or rebound. No organomegaly noted. Musculoskeletal: Spontaneously moving all extremities. Skin: warm, dry, intact. Neuro: Alert and oriented x4. Sensation light touch intact. Psych: Patient's affect is appropriate for situation. Course Course Narrative: Chart review shows prior admission for rapidly filling ostomy bag. At that time , she did have a GI bleed as well as acute kidney injury dehydration. No evidence of GI bleed at this time. I discussed the patient with Dr. Frazier who agrees to accept the patient to his service. He has no additional recommendations at this time. Discussed the above with the patient. She is in agreement to admission for continued evaluation and management. She has no additional questions or concerns this time. Vital Signs Temperature 98.4 F 11/30/17 19:23 Pulse Rate 125 11/30/17 19:23 Respiratory Rate 16 11/30/17 19:23 Blood Pressure 89/61 11/30/17 19:23 Temperature 98.4 F 11/30/17 19:30 Pulse Rate 77 11/30/17 20:47 Respiratory Rate 12 11/30/17 20:47 Blood Pressure 94/59 11/30/17 20:47 O2 Sat by Pulse Oximetry 98 11/30/17 20:47 Oxygen Delivery Oxygen Delivery Room Air Medical Decision Making - Lab Data Result diagrams: 11/30/17 19:36 11/30/17 19:40
[2017-11-30] MEDS ORDERED: Ondansetron ODT 4 MG TAB.RAPDIS SL ONE (19:40)
[2017-11-30] MEDS ORDERED: traMADol 50 MG TABLET PO ONE (19:43)
[2017-11-30] MEDS ORDERED: D5% in Lactated Ringers 1,000 ML IVC ONE (19:43)
[2017-11-30] MEDS ORDERED: 0.9 % Sodium Chloride 1,000 ML IVC ONE (19:45)
[2017-11-30 19:55] LABS: Red Cell Distribution Width 15.4 % (11.5-14.5)
[2017-11-30 19:57] LABS: Basophils # 0.1 K/mcL (0.0-0.2); Basophils % 0.9 %; Eosinophils # 0.4 K/mcL (0.0-0.6); Eosinophils % 5.5 %; Hematocrit 37.2 % (35.3-44.9); Hemoglobin 12.5 g/dL (11.5-15.4); Immature Granulocytes % 0.3 % (0-4); Immature Platelets 8.8 % (1.1-6.1); Lymphocytes # 2.6 K/mcL (0.6-4.6); Lymphocytes % 33.4 %; Mean Corpuscular HGB Conc 33.6 g/dL (31.6-35.5); Mean Corpuscular Hemoglobin 31.3 pg (28.0-33.3); Mean Platelet Volume 12.4 fL (9.4-12.4); Monocytes # 1.1 K/mcL (0.0-1.3); Monocytes % 13.7 %; Neutrophils # 3.7 K/mcL (1.6-8.9); Segmented Neutrophils % 46.2 %
[2017-11-30 20:01] LABS: Platelet Count 89 K/mcL (140-400)
--- NOTE | 2017-11-30 20:04 | Emergency Department Note ---
Disposition Clinical Impression: Increased ileostomy output Abdominal pain Qualifiers: Abdominal location: unspecified location Qualified Code(s): R10.9 - Unspecified abdominal pain Disposition: Admitted As Inpatient Condition: Fair General Adult HPI - General Chief complaint: ED Abdominal Pain Stated complaint: urinary issues Time Seen by Provider: 11/30/17 19:29 Source: patient, family Limitations: no limitations Nursing Notes Reviewed: Yes Vital Signs Reviewed: Yes - History of Present Illness Pain Scale: 10 - Related Data Previous Rx's Medication Instructions Recorded Ibuprofen [Motrin] 800 mg PO Q8HR PRN #42 tablet 10/06/17 Cholestyramine 4 gm PO TIDAC 30 Days #120 11/25/17 powd.pack Diphenoxylate/Atropine [Lomotil 2 tab PO QID 12 Days #120 tablet 11/25/17 2.5 mg/0.025 mg] Loperamide [Imodium] 2 mg PO Q4HR 12 Days #144 capsule 11/25/17 Omeprazole [PriLOSEC] 20 mg PO DAILY #30 capsule. 11/25/17 Allergies Allergy/AdvReac Type Severity Reaction Status Date / Time Penicillins [PCN] Allergy Rash Verified 11/09/17 15:30 niacin AdvReac Flushing Verified 11/09/17 15:30 duracef Allergy See Uncoded 11/09/17 15:30 Comments Past Medical History - Past Medical History Medical history: Reports: COPD, CVA, GERD, hepatitis, hyperlipidemia, hypertension, other Surgical history: Reports: colostomy, hysterectomy Psychiatric history: Reports: depression - Social History Smoking Status: Former smoker Smokeless Tobacco Status: No Alcohol use: Reports: none Drug use: Reports: none Physical Exam - General Limitations: no limitations General appearance: alert Course Vital Signs Temperature 98.4 F 11/30/17 19:23 Pulse Rate 125 11/30/17 19:23 Respiratory Rate 16 11/30/17 19:23 Blood Pressure 89/61 11/30/17 19:23 Temperature 98.4 F 11/30/17 19:30 Pulse Rate 77 11/30/17 20:47 Respiratory Rate 12 11/30/17 20:47 Blood Pressure 94/59 11/30/17 20:47 O2 Sat by Pulse Oximetry 98 11/30/17 20:47 Oxygen Delivery Oxygen Delivery Room Air Medical Decision Making - Lab Data Result diagrams: 11/30/17 19:36 11/30/17 19:40 Lab Results 11/30/17 11/30/17 11/30/17 Range/Units 19:36 19:36 19:40 WBC 7.9 (4.3-11.1) K/mcL RBC 4.00 (3.82-4.97) M/mcL Hgb 12.5 (11.5-15.4) g/dL Hct 37.2 (35.3-44.9) % MCV 93.0 (83.0-100.0) fL MCH 31.3 (28.0-33.3) pg MCHC 33.6 (31.6-35.5) g/dL RDW 15.4 H (11.5-14.5) % Plt Count 89 L (140-400) K/mcL MPV 12.4 (9.4-12.4) fL Immature Gran % 0.3 (0-4) % Seg Neutrophils % 46.2 % Lymphocytes % 33.4 % Monocytes % 13.7 % Eosinophils % 5.5 % Basophils % 0.9 % Neutrophils # 3.7 (1.6-8.9) K/mcL Lymphocytes # 2.6 (0.6-4.6) K/mcL Monocytes # 1.1 (0.0-1.3) K/mcL Eosinophils # 0.4 (0.0-0.6) K/mcL Basophils # 0.1 (0.0-0.2) K/mcL Immature Plt Fraction 8.8 H (1.1-6.1) % Sodium 138 139 (136-145) mEq/L Potassium 3.2 L 3.2 L (3.5-5.1) mEq/L Chloride 98 99 (98-107) mEq/L Carbon Dioxide 30 H 30 H (23-29) mEq/L BUN 23 23 (8-23) mg/dL Creatinine 1.54 H 1.51 H (0.60-1.20) mg/dL Est GFR ( Amer) 41 L 42 L (> 60) Est GFR (Non-Af Amer) 34 L 35 L (> 60) BUN/Creatinine Ratio 15 15 (6-26) Glucose 152 H 156 H (70-105) mg/dL Calculated Osmolality 293 295 (280-300) Lactic Acid (0.5-2.2) mmol/L Calcium 9.1 8.9 (8.6-10.3) mg/dL Total Bilirubin 1.5 H (0.3-1.0) mg/dL Direct Bilirubin 0.5 H (0.0-0.2) mg/dL Indirect Bilirubin 1.0 (0.0-1.2) mg/dL AST 74 H (13-39) Units/L ALT 90 H (7-52) Units/L Alkaline Phosphatase 171 H (34-104) Units/L Serum Total Protein 7.4 (6.4-8.9) g/dL Albumin 3.3 L (3.5-5.7) g/dL Globulin 4.1 H (2.4-3.5) g/dL Albumin/Globulin Ratio 0.8 L (1.1-2.2) Amylase 39 (29-103) Units/L Lipase 49 (11-82) Units/L 06/20/18 Range/Units 19:42 WBC (4.3-11.1) K/mcL RBC (3.82-4.97) M/mcL Hgb (11.5-15.4) g/dL Hct (35.3-44.9) % MCV (83.0-100.0) fL MCH (28.0-33.3) pg MCHC (31.6-35.5) g/dL RDW (11.5-14.5) % Plt Count (140-400) K/mcL MPV (9.4-12.4) fL Immature Gran % (0-4) % Seg Neutrophils % % Lymphocytes % % Monocytes % % Eosinophils % % Basophils % % Neutrophils # (1.6-8.9) K/mcL Lymphocytes # (0.6-4.6) K/mcL Monocytes # (0.0-1.3) K/mcL Eosinophils # (0.0-0.6) K/mcL Basophils # (0.0-0.2) K/mcL Immature Plt Fraction (1.1-6.1) % Sodium (136-145) mEq/L Potassium (3.5-5.1) mEq/L Chloride (98-107) mEq/L Carbon Dioxide (23-29) mEq/L BUN (8-23) mg/dL Creatinine (0.60-1.20) mg/dL Est GFR ( Amer) (> 60) Est GFR (Non-Af Amer) (> 60) BUN/Creatinine Ratio (6-26) Glucose (70-105) mg/dL Calculated Osmolality (280-300) Lactic Acid 2.8 H (0.5-2.2) mmol/L Calcium (8.6-10.3) mg/dL Total Bilirubin (0.3-1.0) mg/dL Direct Bilirubin (0.0-0.2) mg/dL Indirect Bilirubin (0.0-1.2) mg/dL AST (13-39) Units/L ALT (7-52) Units/L Alkaline Phosphatase (34-104) Units/L Serum Total Protein (6.4-8.9) g/dL Albumin (3.5-5.7) g/dL Globulin (2.4-3.5) g/dL Albumin/Globulin Ratio (1.1-2.2) Amylase (29-103) Units/L Lipase (11-82) Units/L Attestation Statement - Attestation Attestation: I, Gianfranco Zelaya MD, personally evaluated this patient and discussed their management with the resident physician. I reviewed the resident's note and agree with the documented findings, medical decision making, and plan of care. 62-year-old female presents to the emergency department complaining of increased drainage from her ileostomy bag. Patient had a colon resection and cholecystectomy a few months ago. Since then she has had the ileostomy and has had problems with a lot of drainage however symptoms worse over the past week. She also complains of increased pain around the ileostomy. She states that there is a large amount of liquid drainage and she has to empty the bag about every half hour. No nausea or vomiting. No fever. On examination patient is a well-developed well-nourished elderly female in no acute distress. She is alert and oriented 3. There is no cyanosis or diaphoresis. Breath sounds are decreased but equal bilaterally with no rales or wheezes noted. Heart regular with a mild tachycardia. Abdomen is soft with moderate mid and right abdominal tenderness. Ileostomy bag in place with a moderate amount of liquid drainage. Labs reviewed. The patient's surgeon, Dr. Frazier, was consulted and accepted admission of the patient.
[2017-11-30] MEDS ORDERED: *HR* FentaNYL (PF) 100 MCG/2 ML VIAL IVP ONE (20:06)
[2017-11-30 20:13] LABS: Calcium 9.1 mg/dL (8.6-10.3); Potassium 3.2 mEq/L (3.5-5.1)
[2017-11-30 20:24] LABS: Albumin 3.3 g/dL (3.5-5.7); Albumin/Globulin Ratio 0.8 (1.1-2.2); Bilirubin,Direct 0.5 mg/dL (0.0-0.2); Bilirubin,Total 1.5 mg/dL (0.3-1.0); Calcium 8.9 mg/dL (8.6-10.3); Globulin 4.1 g/dL (2.4-3.5); Potassium 3.2 mEq/L (3.5-5.1); Total Protein 7.4 g/dL (6.4-8.9)
[2017-11-30 20:41] LABS: Bilirubin,Urine Small (Negative); Blood,Urine Negative (Negative); Clarity,Urine Cloudy (Clear); Color,Urine Dark Yellow (Yellow); Glucose,Urine (UA) Normal (Normal); Ketones,Urine Trace mg/dL (Negative); Leukocyte Esterase,Urine Trace (Negative); Nitrite,Urine Negative (Negative); Protein,Urine 30 mg/dL (Neg-Trace); Specific Gravity,Urine 1.025 (1.010-1.025); Urobilinogen,Urine Normal (Normal)
[2017-11-30 20:49] LABS: Bacteria,Urine None Seen per hpf (None-Few); Hyaline Casts,Urine None Seen per lpf (None-Few); Squamous Epithelial Cell,Urine Many per lpf (None-Few)
[2017-11-30] MEDS: D5% in Lactated Ringers 1,000 ML IVC SCH (21:23)
--- NOTE | 2017-11-30 22:14 | General Surg History&Physical ---
Date of Encounter: 11/30/17 Time of Encounter: 22:11 Assessment and Plan (1) Dehydration Current Visit: Yes Status: Acute 62F s/p sigmoid resection for diverticulitis with diverting loop ileostomy now with contained leak at colorectal anastomasis presents again with dehydration; diet as tolerated ivf pain control antidiarrheals strict I/O dvt prophylaxis: hold on lovenox due to JACQUIE, hold on hep 2/2 cirrhosis; apply mechanical DVT prophylaxis plan for control of ileostomy and possibly G tube; The assessment and plan as outlined above was discussed with the patient and/or family members who expressed understanding and agreement. All questions were answered. History of Present Illness Chief complaint: dehydration HPI: Ms. Jessica is a 62 year old female well known to me now with diverting ileostomy after sigmoid resection presents again with dehydration due to inability to keep up with ileostomy output. Despite appropriate education on PO intake, the need to take her medications to control her output, she revealed to me through phone conversations that she has not been completely compliant with her medication regimen. And although she is clearly doing better than before in terms of PO intake, specifically fluids, she still is not able to keep up with the output. She presents to the ED for further management. 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 big toe bunion,. egd/colonoscopy,. dental sx,. bowel rescetion. ileostomy - Social History Smoking Status: Former smoker Smokeless Tobacco Status: No Alcohol use: none Drug use: none - Family History Father Living Status: Hx Family Cardiac Disorders: Yes Hx Family Respiratory Disorders: Yes Hx Family Cancer: No Hx Family GI Disorders: No Hx Family Endocrine Disorder: No Hx Family Neuromuscular Disorders: No Hx Family Neurologic Disorders: No Hx Family HEENT Disorders: No Hx Family Autoimmune Disorders: Yes Medications and Allergies Ibuprofen [Motrin] 800 mg PO Q8HR PRN #42 tablet 10/06/17 [Rx] Cholestyramine 4 gm PO TIDAC 30 Days #120 powd.pack 11/25/17 [Rx] Diphenoxylate/Atropine [Lomotil 2.5 mg/0.025 mg] 2 tab PO QID 12 Days #120 tablet 11/25/17 [Rx] Loperamide [Imodium] 2 mg PO Q4HR 12 Days #144 capsule 11/25/17 [Rx] Omeprazole [PriLOSEC] 20 mg PO DAILY #30 capsule. 11/25/17 [Rx] 3 Allergy/AdvReac Type Severity Reaction Status Date / Time Penicillins [PCN] Allergy Rash Verified 11/09/17 15:30 niacin AdvReac Flushing Verified 11/09/17 15:30 duracef Allergy See Uncoded 11/09/17 15:30 Comments Review of Systems All systems PM: The remainder of the systems were reviewed and are negative General Surgery Exam Initial Vital Signs Temp Pulse Resp BP 98.4 F 125 16 89/61 11/30/17 19:23 11/30/17 19:23 11/30/17 19:23 11/30/17 19:23 - General physical appearance well developed, no distress - Eyes normal ocular movement - ENT normocephalic - Neck no lymphadectomy - Respiratory normal expansion, normal respiratory effort - Cardiovascular Cardiovascular exam: Present: RRR - Abdomen Abdomen general surgery: Present: soft, non tender - Incision Incision: Present: approximated - Integumentary Integumentary general surgery: Present: warm and dry - Neurologic Present: CN 2-12 grossly intact - Musculoskeletal Present: normal posture - Psychiatric Psychiatric general surgery: Present: A&Ox3 Results - Labs 11/30/17 19:36 11/30/17 19:40 Abnormal lab results RDW 15.4 % (11.5-14.5) H 11/30/17 19:36 Plt Count 89 K/mcL (140-400) L 11/30/17 19:36 Immature Plt Fraction 8.8 % (1.1-6.1) H 11/30/17 19:36 Potassium 3.2 mEq/L (3.5-5.1) L 11/30/17 19:40 Carbon Dioxide 30 mEq/L (23-29) H 11/30/17 19:40 Creatinine 1.51 mg/dL (0.60-1.20) H 11/30/17 19:40 Est GFR ( Amer) 42 (> 60) L 11/30/17 19:40 Est GFR (Non-Af Amer) 35 (> 60) L 11/30/17 19:40 Glucose 156 mg/dL (70-105) H 11/30/17 19:40 Lactic Acid 2.8 mmol/L (0.5-2.2) H 11/30/17 19:42 Total Bilirubin 1.5 mg/dL (0.3-1.0) H 11/30/17 19:40 Direct Bilirubin 0.5 mg/dL (0.0-0.2) H 11/30/17 19:40 AST 74 Units/L (13-39) H 11/30/17 19:40 ALT 90 Units/L (7-52) H 11/30/17 19:40 Alkaline Phosphatase 171 Units/L (34-104) H 11/30/17 19:40 Albumin 3.3 g/dL (3.5-5.7) L 11/30/17 19:40 Globulin 4.1 g/dL (2.4-3.5) H 11/30/17 19:40 Albumin/Globulin Ratio 0.8 (1.1-2.2) L 11/30/17 19:40 Urine Clarity Cloudy (Clear) A 11/30/17 20:26 Urine Protein 30 mg/dL (Neg-Trace) H 11/30/17 20:26 Urine Ketones Trace mg/dL (Negative) H 11/30/17 20:26 Urine Bilirubin Small (Negative) H 11/30/17 20:26 Ur Leukocyte Esterase Trace (Negative) H 11/30/17 20:26 Urine Microscopic RBC 5-15 per hpf (0-3) H 11/30/17 20:26 Urine Microscopic WBC 5-15 per hpf (0-3) H 18 20:26 Ur Squamous Epith Cells Many per lpf (None-Few) H 18 20:26 Ur Culture Indicated? NO. (NO) A 11/30/17 20:26 All other labs normal.
[2017-11-30] MEDS: Loperamide 1 MG/5 ML UDC PO SCH (23:52)
[2017-11-30] MEDS: Psyllium 1 PACKET POWD.PACK PO SCH (23:57)
[2017-11-30] MEDS: Diphenoxylate/Atropine 1 TAB TABLET PO SCH (23:57)
[2017-12-01] MEDS: Cholestyramine 4 GM POWD.PACK PO SCH ×4 (01:26→16:29)
[2017-12-01] MEDS: traMADol 50 MG TABLET PO SCH ×3 (03:30→18:50)
[2017-12-01] MEDS ORDERED: 0.9 % Sodium Chloride 1,000 ML IVC ONE (04:29)
--- NOTE | 2017-12-01 05:48 | General Surgery Progress Note ---
Date of Encounter: 12/01/17 Time of Encounter: 08:08 - Assessment and Plan (1) Dehydration Current Visit: Yes Status: Acute activity as tolerated; PT/OT diet as tolerated antidiarrheals scheduled need strict control over ileostomy output encourage PO intake; at least 2L liquids daily, in addition to meals she eats replete lytes, bolus as needed plan for placement at [facility] Subjective Patient reports: no new complaints, pain is less, tolerating a regular diet, afebrile, other (likely taking in at least two L PO at home; but non compliant with antidiarrheals) Objective Vital Signs - Last 8 Hours Temp Pulse Resp BP Pulse Ox 12/01/17 04:18 98.0 F 51 15 102/61 98 11/30/17 23:46 98.3 F 81 15 99/65 98 Intake and Output 11/30/17 11/30/17 12/01/17 15:59 23:59 07:59 Intake Total 1999 0 / 0 Output Total 450 / 450 50 / 50 Balance 1550 / 1550 -50 / -50 Intake: IV Fluids 1999 0.9 % Sodium Chloride 1,000 ML 1000 / 1000 @ 999 mls/hr IVC .Q1H1M ONE Rx# :[id number] D5% & Lact. Ringers 1000 Ml Bag 1000 / 1000 1,000 ML @ 1875 mls/hr IVC . Q32M ONE Rx#:[id number] Oral 0 / 0 Output: Urine 200 / 200 0 / 0 Stool 250 / 250 50 / 50 Other: Stool Color Brown Yellow Weight 44.8 kg - General physical appearance no distress - Respiratory normal expansion, normal respiratory effort - Cardiovascular Cardiovascular exam: Present: RRR - Abdomen Abdomen: Present: soft, tender (minimally tender around ostomy site; ) - Incision Incision: Present: clean and dry - Neurologic CN 2-12 grossly intact - Psychiatric oriented to time, oriented to person, oriented to place - Labs 11/30/17 19:36 12/01/17 06:11 Consult Discharge Plan - Plan Referrals: Ghanshyam Taylor [Primary Care Provider] -
[2017-12-01] MEDS: D5% in Lactated Ringers 1,000 ML IVC SCH ×3 (06:08→22:58)
[2017-12-01 06:47] LABS: Calcium 8.2 mg/dL (8.6-10.3); Phosphorous 3.7 mg/dL (2.7-4.5); Potassium 3.2 mEq/L (3.5-5.1)
[2017-12-01] MEDS: Loperamide 1 MG/5 ML UDC PO SCH ×4 (08:29→20:22)
[2017-12-01] MEDS: Psyllium 1 PACKET POWD.PACK PO SCH ×3 (08:29→20:22)
[2017-12-01] MEDS: Diphenoxylate/Atropine 1 TAB TABLET PO SCH ×4 (08:29→20:22)
[2017-12-01] MEDS ORDERED: Potassium Chloride 20 MEQ, Lidocaine 1% 2 ML in D5% in Water 250 ML IVPB ONE (10:11)
--- NOTE | 2017-12-01 17:49 | Electrocardiograph Report ---
[place] [address] Test Date: 2017-11-30 Pat Name: Zoë Jessica Department: 103 Room: 3A22 Gender: F [employer] Professor: RYAN : 1955 Requested By: Bill Diop Order Number: [id number] Reading MD: Patrice Bañuelos Measurements Intervals [place] Rate: 102 P: 60 MT: 143 QRS: -16 QRSD: 85 T: 60 QT: 337 QTc: 396 Interpretive Statements SINUS TACHYCARDIA WITH OCCASIONAL SUPRAVENTRICULAR PREMATURE COMPLEXES POSSIBLE RIGHT VENTRICULAR CONDUCTION DELAY NONSPECIFIC T-WAVE ABNORMALITY Electronically Signed On 12-01-2017 17:47:44 EDT by Patrice Bañuelos
[2017-12-02] MEDS: traMADol 50 MG TABLET PO SCH ×3 (04:15→20:03)
[2017-12-02 06:00] LABS: Basophils % 0.6 %; Red Cell Distribution Width 14.7 % (11.5-14.5)
[2017-12-02 06:02] LABS: Eosinophils # 0.2 K/mcL (0.0-0.6); Eosinophils % 5.1 %; Hematocrit 27.7 % (35.3-44.9); Hemoglobin 9.2 g/dL (11.5-15.4); Immature Platelets 8.6 % (1.1-6.1); Lymphocytes # 1.1 K/mcL (0.6-4.6); Lymphocytes % 34.2 %; Mean Corpuscular HGB Conc 33.2 g/dL (31.6-35.5); Mean Corpuscular Hemoglobin 31.2 pg (28.0-33.3); Mean Corpuscular Volume 93.9 fL (83.0-100.0); Mean Platelet Volume 12.8 fL (9.4-12.4); Monocytes # 0.4 K/mcL (0.0-1.3); Monocytes % 13.4 %; Neutrophils # 1.5 K/mcL (1.6-8.9); Red Blood Count 2.95 M/mcL (3.82-4.97); Segmented Neutrophils % 46.7 %
[2017-12-02 06:04] LABS: Platelet Count 44 K/mcL (140-400)
[2017-12-02 06:24] LABS: BUN/Creatinine Ratio 13 (6-26); Blood Urea Nitrogen 14 mg/dL (8-23); Calcium 8.2 mg/dL (8.6-10.3); Carbon Dioxide 29 mEq/L (23-29); Chloride 100 mEq/L (98-107); Glucose 109 mg/dL (70-105); Magnesium 1.5 mg/dL (1.6-2.6); Osmolality,Calculated 277 (280-300); Phosphorous 3.2 mg/dL (2.7-4.5); Potassium 3.5 mEq/L (3.5-5.1); Sodium 133 mEq/L (136-145); eGFR For African Americans > 60 (> 60); eGFR For Non-African Americans 52 (> 60)
[2017-12-02 06:43] LABS: Platelet Estimate Decreased (Normal)
[2017-12-02] MEDS: D5% in Lactated Ringers 1,000 ML IVC SCH ×2 (08:10→10:07)
[2017-12-02] MEDS: Loperamide 1 MG/5 ML UDC PO SCH ×4 (08:10→20:03)
[2017-12-02] MEDS: Diphenoxylate/Atropine 1 TAB TABLET PO SCH ×4 (08:11→20:03)
[2017-12-02] MEDS: Psyllium 1 PACKET POWD.PACK PO SCH ×4 (08:11→20:04)
[2017-12-02] MEDS: Cholestyramine 4 GM POWD.PACK PO SCH ×3 (08:11→17:29)
--- NOTE | 2017-12-02 11:09 | General Surgery Progress Note ---
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 - small contained leak at colorectal anastomosis Recurrent admission for inability to maintain adequate intake and keep up with ileostomy output Discussed with dietary - will check labs and add zinc PLAN: Regular diet + Ensure PO intake - at least 2L of fluid daily Decrease IV fluids to 50 ml/hr Monitor I/O's Anemia - will check iron profile Check vitamin D, B12 - add zinc supplement Replace electrolytes as needed AM labs Plan for placement at [facility] Subjective Patient reports: no new complaints, feels better, tolerating liquids well, tolerating a regular diet Objective Vital Signs - Last 8 Hours Temp Pulse Resp BP Pulse Ox 12/02/17 10:35 99.2 F 94 16 99/61 91 12/02/17 06:43 98.7 F 63 16 101/63 94 12/02/17 04:03 98.6 F 61 14 92/57 97 Intake and Output 12/01/17 12/02/17 12/02/17 23:59 07:59 15:59 Intake Total 1000 / 1000 1000 / 1000 120 / 120 Output Total 1150 / 1150 1025 / 1025 350 / 350 Balance -150 / -150 -25 / -25 -230 / -230 Intake: IV Fluids 1000 / 1000 1000 / 1000 D5% & Lact. Ringers 1000 Ml Bag 1000 / 1000 1000 / 1000 1,000 ML @ 125 mls/hr IVC .Q8H [facility] Rx#:[id number] Oral 0 / 0 0 / 0 120 / 120 Output: Urine 300 / 300 475 / 475 100 / 100 Stool 850 / 850 550 / 550 250 / 250 Other: Meal Breakfast Percent of Meal Consumed 50% Stool Consistency liquid liquid Stool Color Green Brown Green - General physical appearance no distress - Respiratory normal expansion, normal respiratory effort - Cardiovascular Cardiovascular exam: Present: RRR - Abdomen Abdomen: Present: bowel sounds present, soft, tender (mild near ostomy site) - Incision Incision: Present: clean and dry - Neurologic CN 2-12 grossly intact - Psychiatric oriented to time, oriented to person, oriented to place, speech is normal, memory intact - Labs 12/02/17 05:26 12/02/17 05:26 Diabetes panel 12/02/17 Range/Units 05:26 Sodium 133 L (136-145) mEq/L Potassium 3.5 (3.5-5.1) mEq/L Chloride 100 (98-107) mEq/L Carbon Dioxide 29 (23-29) mEq/L BUN 14 (8-23) mg/dL Creatinine 1.06 (0.60-1.20) mg/dL Glucose 109 H (70-105) mg/dL Calcium 8.2 L (8.6-10.3) mg/dL Calcium panel 12/02/17 Range/Units 05:26 Calcium 8.2 L (8.6-10.3) mg/dL Phosphorus 3.2 (2.7-4.5) mg/dL Pituitary panel 12/02/17 Range/Units 05:26 Sodium 133 L (136-145) mEq/L Potassium 3.5 (3.5-5.1) mEq/L Chloride 100 (98-107) mEq/L Carbon Dioxide 29 (23-29) mEq/L BUN 14 (8-23) mg/dL Creatinine 1.06 (0.60-1.20) mg/dL Glucose 109 H (70-105) mg/dL Calcium 8.2 L (8.6-10.3) mg/dL Adrenal panel 12/02/17 Range/Units 05:26 Sodium 133 L (136-145) mEq/L Potassium 3.5 (3.5-5.1) mEq/L Chloride 100 (98-107) mEq/L Carbon Dioxide 29 (23-29) mEq/L BUN 14 (8-23) mg/dL Creatinine 1.06 (0.60-1.20) mg/dL Glucose 109 H (70-105) mg/dL Calcium 8.2 L (8.6-10.3) mg/dL Consult Discharge Plan - Plan Referrals: Dandy Painter DO [Resident] - 12/08/17 10:00 am Rafita Frazier MD [Non-Partnered Physician] - 12/05/17 9:00 am <Rafita Frazier - Last Filed: 12/02/17 14:17> Date of Encounter: 12/02/17 - Assessment and Plan (1) Dehydration Current Visit: Yes Status: Acute Objective Vital Signs - Last 8 Hours Temp Pulse Resp BP Pulse Ox 12/02/17 10:35 99.2 F 94 16 99/61 91 12/02/17 06:43 98.7 F 63 16 101/63 94 Intake and Output 12/01/17 12/02/17 12/02/17 23:59 07:59 15:59 Intake Total 1000 / 1000 1000 / 1000 360 / 360 Output Total 1150 / 1150 1025 / 1025 850 / 850 Balance -150 / -150 -25 / -25 -490 / -490 Intake: IV Fluids 1000 / 1000 1000 / 1000 D5% & Lact. Ringers 1000 Ml Bag 1000 / 1000 1000 / 1000 1,000 ML @ 125 mls/hr IVC .Q8H [facility] Rx#:[id number] Oral 0 / 0 0 / 0 360 / 360 Output: Urine 300 / 300 475 / 475 100 / 100 Stool 850 / 850 550 / 550 750 / 750 Other: Meal Lunch Percent of Meal Consumed 25% Stool Size Large Stool Consistency liquid liquid Stool Characteristics Normal for Patient Stool Color Green Brown - Labs 12/02/17 05:26 12/02/17 05:26 Diabetes panel 12/02/17 Range/Units 05:26 Sodium 133 L (136-145) mEq/L Potassium 3.5 (3.5-5.1) mEq/L Chloride 100 (98-107) mEq/L Carbon Dioxide 29 (23-29) mEq/L BUN 14 (8-23) mg/dL Creatinine 1.06 (0.60-1.20) mg/dL Glucose 109 H (70-105) mg/dL Calcium 8.2 L (8.6-10.3) mg/dL Calcium panel 12/02/17 Range/Units 05:26 Calcium 8.2 L (8.6-10.3) mg/dL Phosphorus 3.2 (2.7-4.5) mg/dL Pituitary panel 12/02/17 Range/Units 05:26 Sodium 133 L (136-145) mEq/L Potassium 3.5 (3.5-5.1) mEq/L Chloride 100 (98-107) mEq/L Carbon Dioxide 29 (23-29) mEq/L BUN 14 (8-23) mg/dL Creatinine 1.06 (0.60-1.20) mg/dL Glucose 109 H (70-105) mg/dL Calcium 8.2 L (8.6-10.3) mg/dL Adrenal panel 12/02/17 Range/Units 05:26 Sodium 133 L (136-145) mEq/L Potassium 3.5 (3.5-5.1) mEq/L Chloride 100 (98-107) mEq/L Carbon Dioxide 29 (23-29) mEq/L BUN 14 (8-23) mg/dL Creatinine 1.06 (0.60-1.20) mg/dL Glucose 109 H (70-105) mg/dL Calcium 8.2 L (8.6-10.3) mg/dL - Attending Attestation patient seen and examined. i have reviewed all documentation and labs. I agree with the above assessment and plan.
[2017-12-02] MEDS: Zinc Sulfate 220 MG CAPSULE PO SCH (11:19)
[2017-12-02] MEDS ORDERED: LIDOCAINE 1% PF 2 ML AMPUL INFILT ONE (12:07)
[2017-12-02 12:16] LABS: Adenovirus F 40/41 PCR Not detected (Not detect); Astrovirus PCR Not detected (Not detect); C.difficile Toxin A/B by PCR Not detected (Not detect); Campylobacter by PCR Not detected (Not detect); Cryptosporidium by PCR Not detected (Not detect); Cyclospora cayetanensis PCR Not detected (Not detect); E. coli O157 by PCR Not detected (Not detect); Entamoeba histolytica PCR Not detected (Not detect); Enteroaggregative E.coli(EAEC) Not detected (Not detect); Enteropathogenic E.coli(EPEC) Not detected (Not detect); Enterotoxigenic E.coli (ETEC) Not detected (Not detect); Giardia lamblia PCR Not detected (Not detect); Norovirus GI/GII PCR Not detected (Not detect); Plesiomonas shigelloides PCR Not detected (Not detect); Rotavirus A PCR Not detected (Not detect); Salmonella PCR Not detected (Not detect); Sapovirus PCR Not detected (Not detect); Shig/EnteroinvasiveE coli EIEC Not detected (Not detect); Shigalike tox-prod E coli STEC Not detected (Not detect); Vibrio PCR Not detected (Not detect); Vibrio cholerae PCR Not detected (Not detect); Yersinia enterocolitica PCR Not detected (Not detect)
[2017-12-03] MEDS: traMADol 50 MG TABLET PO SCH ×3 (03:09→20:34)
[2017-12-03 04:06] LABS: % Iron Saturation 27 % (15-50); Iron 88 mcg/dL (50-170); Transferrin 236 mg/dL (203-362)
[2017-12-03 04:07] LABS: BUN/Creatinine Ratio 14 (6-26); Blood Urea Nitrogen 14 mg/dL (8-23); Calcium 8.4 mg/dL (8.6-10.3); Carbon Dioxide 30 mEq/L (23-29); Chloride 95 mEq/L (98-107); Glucose 98 mg/dL (70-105); Magnesium 1.7 mg/dL (1.6-2.6); Osmolality,Calculated 268 (280-300); Phosphorous 3.1 mg/dL (2.7-4.5); Potassium 3.6 mEq/L (3.5-5.1); Sodium 129 mEq/L (136-145); eGFR For African Americans > 60 (> 60); eGFR For Non-African Americans 56 (> 60)
[2017-12-03] MEDS: D5% in Lactated Ringers 1,000 ML IVC SCH (05:41)
[2017-12-03] MEDS: Cholestyramine 4 GM POWD.PACK PO SCH ×3 (07:38→16:30)
[2017-12-03] MEDS: Loperamide 1 MG/5 ML UDC PO SCH ×4 (10:05→20:35)
[2017-12-03] MEDS: Zinc Sulfate 220 MG CAPSULE PO SCH (10:05)
[2017-12-03] MEDS: Diphenoxylate/Atropine 1 TAB TABLET PO SCH ×4 (10:06→20:40)
[2017-12-03] MEDS: Psyllium 1 PACKET POWD.PACK PO SCH ×3 (10:06→20:36)
--- NOTE | 2017-12-03 10:48 | General Surgery Progress Note ---
<Mauri Diaz - Last Filed: 12/03/17 10:44> Date of Encounter: 12/03/17 Time of Encounter: 08:15 - Assessment and Plan (1) Dehydration Current Visit: Yes Status: Acute Sigmoid resection with diverting loop ileostomy - small contained leak at colorectal anastomosis Recurrent admission for inability to maintain adequate intake and keep up with ileostomy output GI panel negative Pre-albumin low Renal function improving, electrolytes normal today PLAN: Regular diet + Ensure PO intake - at least 2L of fluid daily Continue antidiarrheal regimen Continue IV fluids at 50 ml/hr Monitor I/O's Iron profile normal, B12 normal Continue zinc supplement Replace electrolytes as needed AM labs Discharge planning with SW Subjective Patient reports: no new complaints, feels better, tolerating a regular diet, voiding w/o difficulty, bowel movement, afebrile Objective Vital Signs - Last 8 Hours Temp Pulse Resp BP Pulse Ox 12/03/17 07:40 96 12/03/17 07:06 98.4 F 54 15 91/50 96 12/03/17 03:07 99.0 F 65 16 104/62 99 Intake and Output 12/02/17 12/03/17 12/03/17 23:59 07:59 15:59 Intake Total 360 / 360 1240 / 1240 360 / 360 Output Total 1000 / 1000 650 / 650 600 / 600 Balance -640 / -640 590 / 590 -240 / -240 Intake: IV Fluids 1000 / 1000 Oral 360 / 360 240 / 240 360 / 360 Output: Urine 450 / 450 300 / 300 100 / 100 Stool 550 / 550 350 / 350 500 / 500 Other: Meal Dinner Breakfast Percent of Meal Consumed 70% 100% Stool Size Large Stool Consistency liquid liquid Stool Characteristics Seedy Stool Color Brown Brown Pale Green Weight 51.9 kg Patient Weight 12/03/17 23:59 Weight 51.9 kg - General physical appearance no distress - Respiratory normal expansion, normal respiratory effort - Cardiovascular Cardiovascular exam: Present: RRR - Abdomen Abdomen: Present: bowel sounds present, soft, tender (mild near ostomy site), wound (ostomy pin and moist with output) - Neurologic CN 2-12 grossly intact - Psychiatric oriented to time, oriented to person, oriented to place, speech is normal, memory intact - Labs 12/02/17 05:26 12/03/17 03:30 Diabetes panel 12/03/17 Range/Units 03:30 Sodium 129 L (136-145) mEq/L Potassium 3.6 (3.5-5.1) mEq/L Chloride 95 L (98-107) mEq/L Carbon Dioxide 30 H (23-29) mEq/L BUN 14 (8-23) mg/dL Creatinine 1.00 (0.60-1.20) mg/dL Glucose 98 (70-105) mg/dL Calcium 8.4 L (8.6-10.3) mg/dL Calcium panel 12/03/17 Range/Units 03:30 Calcium 8.4 L (8.6-10.3) mg/dL Phosphorus 3.1 (2.7-4.5) mg/dL Pituitary panel 12/03/17 Range/Units 03:30 Sodium 129 L (136-145) mEq/L Potassium 3.6 (3.5-5.1) mEq/L Chloride 95 L (98-107) mEq/L Carbon Dioxide 30 H (23-29) mEq/L BUN 14 (8-23) mg/dL Creatinine 1.00 (0.60-1.20) mg/dL Glucose 98 (70-105) mg/dL Calcium 8.4 L (8.6-10.3) mg/dL Adrenal panel 12/03/17 Range/Units 03:30 Sodium 129 L (136-145) mEq/L Potassium 3.6 (3.5-5.1) mEq/L Chloride 95 L (98-107) mEq/L Carbon Dioxide 30 H (23-29) mEq/L BUN 14 (8-23) mg/dL Creatinine 1.00 (0.60-1.20) mg/dL Glucose 98 (70-105) mg/dL Calcium 8.4 L (8.6-10.3) mg/dL Consult Discharge Plan - Plan Referrals: Dandy Painter DO [Resident] - 12/08/17 10:00 am Rafita Frazier MD [Non-Partnered Physician] - 12/05/17 9:00 am <Guillermo Murphy - Last Filed: 12/03/17 12:19> Date of Encounter: 12/03/17 Objective Vital Signs - Last 8 Hours Temp Pulse Resp BP Pulse Ox 12/03/17 11:40 58 97/56 12/03/17 10:47 98.7 F 66 19 92/58 97 12/03/17 07:40 96 12/03/17 07:06 98.4 F 54 15 91/50 96 Intake and Output 12/02/17 12/03/17 12/03/17 23:59 07:59 15:59 Intake Total 360 / 360 1240 / 1240 560 / 560 Output Total 1000 / 1000 650 / 650 1000 / 1000 Balance -640 / -640 590 / 590 -440 / -440 Intake: IV Fluids 1000 / 1000 Oral 360 / 360 240 / 240 560 / 560 Output: Urine 450 / 450 300 / 300 100 / 100 Stool 550 / 550 350 / 350 900 / 900 Other: Meal Dinner Breakfast Percent of Meal Consumed 70% 100% Stool Size Large Stool Consistency liquid liquid Stool Characteristics Seedy Stool Color Brown Brown Pale Yellow Weight 51.9 kg Patient Weight 12/03/17 23:59 Weight 51.9 kg - Labs 12/02/17 05:26 12/03/17 03:30 Diabetes panel 12/03/17 Range/Units 03:30 Sodium 129 L (136-145) mEq/L Potassium 3.6 (3.5-5.1) mEq/L Chloride 95 L (98-107) mEq/L Carbon Dioxide 30 H (23-29) mEq/L BUN 14 (8-23) mg/dL Creatinine 1.00 (0.60-1.20) mg/dL Glucose 98 (70-105) mg/dL Calcium 8.4 L (8.6-10.3) mg/dL Calcium panel 12/03/17 Range/Units 03:30 Calcium 8.4 L (8.6-10.3) mg/dL Phosphorus 3.1 (2.7-4.5) mg/dL Pituitary panel 12/03/17 Range/Units 03:30 Sodium 129 L (136-145) mEq/L Potassium 3.6 (3.5-5.1) mEq/L Chloride 95 L (98-107) mEq/L Carbon Dioxide 30 H (23-29) mEq/L BUN 14 (8-23) mg/dL Creatinine 1.00 (0.60-1.20) mg/dL Glucose 98 (70-105) mg/dL Calcium 8.4 L (8.6-10.3) mg/dL Adrenal panel 12/03/17 Range/Units 03:30 Sodium 129 L (136-145) mEq/L Potassium 3.6 (3.5-5.1) mEq/L Chloride 95 L (98-107) mEq/L Carbon Dioxide 30 H (23-29) mEq/L BUN 14 (8-23) mg/dL Creatinine 1.00 (0.60-1.20) mg/dL Glucose 98 (70-105) mg/dL Calcium 8.4 L (8.6-10.3) mg/dL - Attending Attestation I examined this patient and my medical decision-making was reviewed with the Resident Physician. I agree with the documented findings, disposition and treatment plan as described except to the extent set forth below. The patient is seen and evaluated on morning rounds with resident. Her electrolytes and renal function have dramatically improved. I spoke with her today about the absolute necessity of balanced electrolyte hydration. Continue IV hydration. Guillermo Murphy MD FACS
[2017-12-04] MEDS: D5% in Lactated Ringers 1,000 ML IVC SCH ×2 (01:51→22:07)
[2017-12-04] MEDS: traMADol 50 MG TABLET PO SCH ×3 (04:07→20:13)
[2017-12-04 05:12] LABS: BUN/Creatinine Ratio 14 (6-26); Blood Urea Nitrogen 14 mg/dL (8-23); Carbon Dioxide 34 mEq/L (23-29); Chloride 92 mEq/L (98-107); Glucose 107 mg/dL (70-105); Osmolality,Calculated 271 (280-300); Potassium 3.4 mEq/L (3.5-5.1); Sodium 130 mEq/L (136-145); eGFR For African Americans > 60 (> 60); eGFR For Non-African Americans 54 (> 60)
[2017-12-04 05:13] LABS: Calcium 8.8 mg/dL (8.6-10.3); Magnesium 1.5 mg/dL (1.6-2.6); Phosphorous 2.8 mg/dL (2.7-4.5)
[2017-12-04] MEDS ORDERED: Potassium Chloride 40 MEQ, Lidocaine 1% 2 ML in D5% in Water 500 ML IVPB ONE (06:34)
[2017-12-04] MEDS: Diphenoxylate/Atropine 1 TAB TABLET PO SCH ×4 (07:50→20:14)
[2017-12-04] MEDS: Zinc Sulfate 220 MG CAPSULE PO SCH (07:50)
[2017-12-04] MEDS: Loperamide 1 MG/5 ML UDC PO SCH ×4 (07:51→20:14)
[2017-12-04] MEDS: Psyllium 1 PACKET POWD.PACK PO SCH ×3 (07:52→20:14)
[2017-12-04] MEDS: Cholestyramine 4 GM POWD.PACK PO SCH ×3 (07:52→16:38)
--- NOTE | 2017-12-04 09:11 | General Surgery Progress Note ---
<Mauri Diaz Garrick - Last Filed: 12/04/17 10:18> Date of Encounter: 12/04/17 Time of Encounter: 08:05 - Assessment and Plan (1) Dehydration Current Visit: Yes Status: Acute Sigmoid resection with diverting loop ileostomy - small contained leak at colorectal anastomosis Recurrent admission for inability to maintain adequate intake and keep up with ileostomy output GI panel negative Pre-albumin low Renal function improving PLAN: Regular diet + Ensure PO intake - at least 2L of fluid daily - only 1040 ml documented intake yesterday Continue antidiarrheal regimen Continue IV fluids at 50 ml/hr Monitor I/O's Iron profile normal, B12 normal Continue zinc supplement Replace K and Mag today AM labs Discharge planning with SW Subjective Patient reports: no new complaints, feels better, pain is less, tolerating a regular diet, voiding w/o difficulty, afebrile Narrative: Pt reports sleeping most of the day yesterday. Denies any complaints. Unsure of how much she drank yesterday and doesn't seem to be keeping track of her intake. Objective Vital Signs - Last 8 Hours Temp Pulse Resp BP Pulse Ox 12/04/17 06:40 98.2 F 59 15 102/50 99 12/04/17 05:04 98.1 F 58 14 100/65 99 Intake and Output 12/03/17 12/04/17 12/04/17 23:59 07:59 15:59 Intake Total 240 / 240 1300 / 1300 Output Total 1700 / 1700 1050 / 1050 Balance -1460 / -1460 250 / 250 Intake: IV Fluids 1000 / 1000 D5% & Lact. Ringers 1000 Ml Bag 1000 / 1000 1,000 ML @ 50 mls/hr IVC .Q20H [facility] Rx#:[id number] Oral 240 / 240 300 / 300 Output: Urine 500 / 500 300 / 300 Stool 1200 / 1200 750 / 750 Other: Meal Dinner Percent of Meal Consumed 100% Stool Size Moderate Stool Consistency liquid Stool Characteristics Seedy Seedy Stool Color Brown Green Green # Voids 1 Weight 51.9 kg Patient Weight 12/04/17 23:59 Weight 51.9 kg - General physical appearance no distress - Respiratory normal expansion, normal respiratory effort, clear to auscultation - Cardiovascular Cardiovascular exam: Present: RRR - Abdomen Abdomen: Present: bowel sounds present, soft, non tender - Incision Incision: Present: open (ostomy pink and moist with output) - Integumentary no rash, no growths, no abnormal pigmentation - Neurologic CN 2-12 grossly intact, normal coordination - Psychiatric oriented to time, oriented to person, oriented to place, speech is normal, memory intact - Labs 12/02/17 05:26 12/04/17 04:35 Diabetes panel 12/04/17 Range/Units 04:35 Sodium 130 L (136-145) mEq/L Potassium 3.4 L (3.5-5.1) mEq/L Chloride 92 L (98-107) mEq/L Carbon Dioxide 34 H (23-29) mEq/L BUN 14 (8-23) mg/dL Creatinine 1.03 (0.60-1.20) mg/dL Glucose 107 H (70-105) mg/dL Calcium 8.8 (8.6-10.3) mg/dL Calcium panel 12/04/17 Range/Units 04:35 Calcium 8.8 (8.6-10.3) mg/dL Phosphorus 2.8 (2.7-4.5) mg/dL Pituitary panel 12/04/17 Range/Units 04:35 Sodium 130 L (136-145) mEq/L Potassium 3.4 L (3.5-5.1) mEq/L Chloride 92 L (98-107) mEq/L Carbon Dioxide 34 H (23-29) mEq/L BUN 14 (8-23) mg/dL Creatinine 1.03 (0.60-1.20) mg/dL Glucose 107 H (70-105) mg/dL Calcium 8.8 (8.6-10.3) mg/dL Adrenal panel 12/04/17 Range/Units 04:35 Sodium 130 L (136-145) mEq/L Potassium 3.4 L (3.5-5.1) mEq/L Chloride 92 L (98-107) mEq/L Carbon Dioxide 34 H (23-29) mEq/L BUN 14 (8-23) mg/dL Creatinine 1.03 (0.60-1.20) mg/dL Glucose 107 H (70-105) mg/dL Calcium 8.8 (8.6-10.3) mg/dL Consult Discharge Plan - Plan Referrals: Dandy Painter DO [Resident] - 12/08/17 10:00 am Rafita Frazier MD [Non-Partnered Physician] - 12/05/17 9:00 am <Guillermo Murphy - Last Filed: 12/04/17 11:06> Date of Encounter: 12/04/17 Objective Vital Signs - Last 8 Hours Temp Pulse Resp BP Pulse Ox 12/04/17 11:02 97.9 F 63 15 103/65 99 12/04/17 06:40 98.2 F 59 15 102/50 99 12/04/17 05:04 98.1 F 58 14 100/65 99 Intake and Output 12/03/17 12/04/17 12/04/17 23:59 07:59 15:59 Intake Total 240 / 240 1300 / 1300 240 / 240 Output Total 1700 / 1700 1050 / 1050 600 / 600 Balance -1460 / -1460 250 / 250 -360 / -360 Intake: IV Fluids 1000 / 1000 D5% & Lact. Ringers 1000 Ml Bag 1000 / 1000 1,000 ML @ 50 mls/hr IVC .Q20H [facility] Rx#:[id number] Oral 240 / 240 300 / 300 240 / 240 Output: Urine 500 / 500 300 / 300 200 / 200 Stool 1200 / 1200 750 / 750 400 / 400 Other: Meal Dinner Breakfast Percent of Meal Consumed 100% 100% Stool Size Moderate Stool Consistency liquid Stool Characteristics Seedy Seedy Stool Color Brown Green Green # Voids 1 Weight 51.9 kg Patient Weight 12/04/17 23:59 Weight 51.9 kg - Labs 12/02/17 05:26 12/04/17 04:35 Diabetes panel 12/04/17 Range/Units 04:35 Sodium 130 L (136-145) mEq/L Potassium 3.4 L (3.5-5.1) mEq/L Chloride 92 L (98-107) mEq/L Carbon Dioxide 34 H (23-29) mEq/L BUN 14 (8-23) mg/dL Creatinine 1.03 (0.60-1.20) mg/dL Glucose 107 H (70-105) mg/dL Calcium 8.8 (8.6-10.3) mg/dL Calcium panel 12/04/17 Range/Units 04:35 Calcium 8.8 (8.6-10.3) mg/dL Phosphorus 2.8 (2.7-4.5) mg/dL Pituitary panel 12/04/17 Range/Units 04:35 Sodium 130 L (136-145) mEq/L Potassium 3.4 L (3.5-5.1) mEq/L Chloride 92 L (98-107) mEq/L Carbon Dioxide 34 H (23-29) mEq/L BUN 14 (8-23) mg/dL Creatinine 1.03 (0.60-1.20) mg/dL Glucose 107 H (70-105) mg/dL Calcium 8.8 (8.6-10.3) mg/dL Adrenal panel 12/04/17 Range/Units 04:35 Sodium 130 L (136-145) mEq/L Potassium 3.4 L (3.5-5.1) mEq/L Chloride 92 L (98-107) mEq/L Carbon Dioxide 34 H (23-29) mEq/L BUN 14 (8-23) mg/dL Creatinine 1.03 (0.60-1.20) mg/dL Glucose 107 H (70-105) mg/dL Calcium 8.8 (8.6-10.3) mg/dL - Attending Attestation I examined this patient and my medical decision-making was reviewed with the Resident Physician. I agree with the documented findings, disposition and treatment plan as described except to the extent set forth below. The patient is seen and evaluated on morning rounds with resident. She is resting comfortably. Electrolytes have normalized. She is still lagging far behind on her oral intake. I encouraged her today to increase her oral intake volume to prevent future dehydration. Guillermo Murphy MD FACS
[2017-12-05 04:38] LABS: BUN/Creatinine Ratio 14 (6-26); Blood Urea Nitrogen 14 mg/dL (8-23); Calcium 8.7 mg/dL (8.6-10.3); Carbon Dioxide 34 mEq/L (23-29); Chloride 89 mEq/L (98-107); Glucose 115 mg/dL (70-105); Magnesium 1.6 mg/dL (1.6-2.6); Osmolality,Calculated 263 (280-300); Phosphorous 2.7 mg/dL (2.7-4.5); Potassium 3.4 mEq/L (3.5-5.1); Sodium 126 mEq/L (136-145); eGFR For African Americans > 60 (> 60); eGFR For Non-African Americans 56 (> 60)
[2017-12-05] MEDS: traMADol 50 MG TABLET PO SCH ×3 (05:50→22:20)
[2017-12-05] MEDS: Zinc Sulfate 220 MG CAPSULE PO SCH (08:29)
[2017-12-05] MEDS: Cholestyramine 4 GM POWD.PACK PO SCH ×3 (08:29→14:21)
[2017-12-05] MEDS: Diphenoxylate/Atropine 1 TAB TABLET PO SCH ×4 (08:29→20:49)
[2017-12-05] MEDS: Psyllium 1 PACKET POWD.PACK PO SCH ×3 (08:30→20:49)
[2017-12-05] MEDS: Loperamide 1 MG/5 ML UDC PO SCH ×4 (08:30→20:49)
[2017-12-05] MEDS ORDERED: *HR* Norepinephrine 4 MG/4 ML VIAL IVC ONE (08:54)
[2017-12-05] MEDS ORDERED: Isovue-370 500 ML INFUS..BTL IV ONE ×3 (12:11→12:54)
[2017-12-05] MEDS ORDERED: Ondansetron 4 MG/2 ML VIAL ONE (12:45)
[2017-12-05] MEDS ORDERED: 0.9 % Sodium Chloride 1,000 ML ONE (12:45)
[2017-12-05] MEDS ORDERED: Ondansetron 4 MG/2 ML VIAL IVP ONE (12:54)
[2017-12-05] MEDS ORDERED: 0.9 % Sodium Chloride 2,000 ML ONE (12:56)
--- NOTE | 2017-12-05 12:56 | General Surgery Progress Note ---
Date of Encounter: 12/05/17 Time of Encounter: 12:55 - Assessment and Plan (1) Dehydration Current Visit: Yes Status: Acute suspect she is dehydrated from high ileostomy output, possibly from acute blood loss anemia; mild to moderate distress; low BP on manual pressure; HR wnl, good oxygen saturations; nauseated NPO, NG tube stat labs (CBC, CMP, lactic acid, troponins) IV access wait for labs before transfusing plan for stat CT with PO and IV contrast; rectal contrast as well serial exams; Subjective Patient reports: other (no acute events over the weekend; she had one episode of bleeding from her ileosotmy this morning. Just called due to rapid response ; continued bleeding from ileostomy, vomiting, feeling weak; ) Objective Vital Signs - Last 8 Hours Temp Pulse Resp BP Pulse Ox 12/05/17 07:29 98 F 60 16 110/65 98 Intake and Output 12/04/17 12/05/17 12/05/17 23:59 07:59 15:59 Intake Total 1000 / 1000 0 / 0 Output Total 900 / 900 1375 / 1375 700 / 700 Balance 100 / 100 -1375 / -1375 -700 / -700 Intake: IV Fluids 1000 / 1000 D5% & Lact. Ringers 1000 Ml Bag 1000 / 1000 1,000 ML @ 50 mls/hr IVC .Q20H [facility] Rx#:[id number] Oral 0 / 0 0 / 0 Output: Urine 200 / 200 150 / 150 Stool 700 / 700 1225 / 1225 700 / 700 Other: Meal Dinner Percent of Meal Consumed 10% Stool Consistency loose loose liquid liquid liquid Stool Characteristics Normal for Patient Stool Color Yellow Yellow Dark Red Blood # Voids 2 Weight 52.1 kg Patient Weight 12/05/17 23:59 Weight 52.1 kg - General physical appearance other (mild distress) - Respiratory normal expansion, normal respiratory effort - Abdomen Abdomen: Present: soft, non tender Additional Comments: dark blood from ileostomy - Incision Incision: Present: clean and dry, intact - Neurologic CN 2-12 grossly intact - Labs 12/02/17 05:26 12/05/17 04:05 Diabetes panel 12/05/17 Range/Units 04:05 Sodium 126 L (136-145) mEq/L Potassium 3.4 L (3.5-5.1) mEq/L Chloride 89 L (98-107) mEq/L Carbon Dioxide 34 H (23-29) mEq/L BUN 14 (8-23) mg/dL Creatinine 1.00 (0.60-1.20) mg/dL Glucose 115 H (70-105) mg/dL Calcium 8.7 (8.6-10.3) mg/dL Calcium panel 12/03/17 12/05/17 Range/Units 03:30 04:05 Calcium 8.7 (8.6-10.3) mg/dL Phosphorus 2.7 (2.7-4.5) mg/dL 25-OH Vitamin D Total 13 L (30-80) ng/mL Pituitary panel 12/05/17 Range/Units 04:05 Sodium 126 L (136-145) mEq/L Potassium 3.4 L (3.5-5.1) mEq/L Chloride 89 L (98-107) mEq/L Carbon Dioxide 34 H (23-29) mEq/L BUN 14 (8-23) mg/dL Creatinine 1.00 (0.60-1.20) mg/dL Glucose 115 H (70-105) mg/dL Calcium 8.7 (8.6-10.3) mg/dL Adrenal panel 12/05/17 Range/Units 04:05 Sodium 126 L (136-145) mEq/L Potassium 3.4 L (3.5-5.1) mEq/L Chloride 89 L (98-107) mEq/L Carbon Dioxide 34 H (23-29) mEq/L BUN 14 (8-23) mg/dL Creatinine 1.00 (0.60-1.20) mg/dL Glucose 115 H (70-105) mg/dL Calcium 8.7 (8.6-10.3) mg/dL Consult Discharge Plan - Plan Referrals: Dandy Painter DO [Resident] - Rafita Frazier MD [Non-Partnered Physician] -
[2017-12-05] MEDS: 0.9 % Sodium Chloride 1,000 ML IVC SCH ×3 (13:00→18:09)
[2017-12-05] MEDS ORDERED: *HR* LORazepam 2 MG/ML VIAL ONE (13:00)
[2017-12-05] MEDS ORDERED: *HR* LORazepam 2 MG/ML VIAL IVP ONE (13:14)
--- NOTE | 2017-12-05 13:21 | Procedure Note ---
<Amaury Brewer - Last Filed: 12/05/17 13:19> Date of procedure: 12/05/17 Pre-op diagnosis: Hypotension Post-op diagnosis: same Procedure: The procedure was considered emergent. Consent was unable to be obtained from the patient. The left groin was surveyed using ultrasound and deemed to be a suitable target. The left groin was cleaned and draped in the usual sterile fashion. Under ultrasound guidance the left femoral vein was accessed with the introducer needle. Dark red, nonpulsatile blood flow was returned. The guidewire was advanced through the introducer needle and into the vein without resistance. The needle was then removed and using ultrasound the wire was confirmed to be within the vein. A marci in the skin was made, and the dilator was passed over the guidewire and the skin and soft tissues were dilated. The dilator was then removed and a 20 cm triple lumen catheter was advanced over the guidewire and into the vein without resistance. The guidewire was then removed intact. All 3 ports were tested and shown to draw blood and flushed easily. The catheter was sutured in place. Biopatch and sterile dressing were applied. The patient tolerated the procedure well. There were no immediate complications. Anesthesia: local (4 mL, 1% lidocaine) Surgeon: Amaury Brewer Was there an pharmacy innovation assistant present: Yes Health Information Systems Technician: Benedict Ugalde Estimated blood loss (cc): 5 IV fluids (cc): 10 Specimen: none Pathology: none sent Condition: critical Disposition: ICU <Shanice Montelongo S - Last Filed: 12/05/17 13:28> Procedure: I was present during the entire procedure and assisted in critical portions of the procedure.
[2017-12-05 13:37] LABS: Basophils # 0.1 K/mcL (0.0-0.2); Basophils % 0.8 %; Eosinophils # 0.3 K/mcL (0.0-0.6); Eosinophils % 3.2 %; Hematocrit 25.5 % (35.3-44.9); Hemoglobin 8.7 g/dL (11.5-15.4); Immature Granulocytes % 0.4 % (0-4); Lymphocytes # 2.7 K/mcL (0.6-4.6); Lymphocytes % 33.7 %; Mean Corpuscular HGB Conc 34.1 g/dL (31.6-35.5); Mean Corpuscular Hemoglobin 31.9 pg (28.0-33.3); Mean Corpuscular Volume 93.4 fL (83.0-100.0); Mean Platelet Volume 12.8 fL (9.4-12.4); Monocytes # 1.5 K/mcL (0.0-1.3); Monocytes % 18.4 %; Neutrophils # 3.4 K/mcL (1.6-8.9); Red Blood Count 2.73 M/mcL (3.82-4.97); Red Cell Distribution Width 14.5 % (11.5-14.5); Segmented Neutrophils % 43.5 %
[2017-12-05 13:38] LABS: Platelet Count 71 K/mcL (140-400)
--- NOTE | 2017-12-05 13:39 | Pulmonology Consult Note ---
<RodrigueBenedict chavarria - Last Filed: 12/05/17 15:12> Date of Encounter: 12/05/17 Time of Encounter: 13:00 Assessment and Plan (1) GI bleed Current Visit: No Status: Resolved Patient produce significant amounts of dark red blood from her ostomy site which led to a hypovolemic shock status. Hemoglobin upon admission was at 12.5 and currently at 8.7. Her vitals at the time were 60s over 40s with a pulse of 91 and an O2 sat of 99%. Patient was transferred to ICU and put on 2 L of IV fluids. Patient leave being typed and screened for blood transfusion orders. Colonoscopy and EGD on 11/17/17 showed normal esophagus, chronic gastritis, normal jejunum, normal duodenum, and portal hypertensive gastropathy. - Continue IV fluids. - Continue to monitor blood pressure. - Continue to trend H/H every 6H. - Transfuse if hemoglobin is less than 7. - Encourage by mouth oral hydration. - CT of the abdomen with IV and oral contrast. Qualifiers: GI bleed type/associated pathology: unspecified gastrointestinal hemorrhage type Qualified Code(s): K92.2 - Gastrointestinal hemorrhage, unspecified (2) Hypovolemic shock Current Visit: Yes Status: Acute Patient's blood pressure was in the 60s/40s. Secondary to dehydration in conjunction with GI bleed. Patient has history of high output from ostomy. She was initially put on pressure support with Levophed 25 mcg. once femoral line was put in IV fluids were started and pressors were stopped. Patient given 2 L bolus IV fluid. Current blood pressure at 97/61 with a heart rate of 79. - Continue IV fluids. - Continue to monitor BP. (3) Thrombocytopenia Current Visit: No Status: Chronic Platelet level currently at 71. Baseline level from 53-89. Likely seconday to history of hepatitis B + C (4) History of hepatitis B Current Visit: Yes Status: Acute (5) History of hepatitis C Current Visit: Yes Status: Acute (6) DVT prophylaxis Current Visit: No Status: Acute EPCDs. History of Present Illness Consult date: 12/05/17 Requesting physician: Rafita Frazier Reason for consult: other (Hypotension) Chief complaint: GI Bleed History of present illness: Patient is a 62-year-old female PMH of COPD, CVA, hepatitis, HLD, and HTN with a PSH of sigmoidectomy with diverting loop illeostomy on 10/03/17 and cholecystectomy on 10/27/17 that presented to ER on 12/04/17 due to dehydration secondary to high output from her ileostomy. Patient has had recurrent admissions due to inability to maintain adequate by mouth intake. Patient was admitted and put on IV fluids and pain control along with antidiarrheal medication. Today around 1230 patient had got up to use the restroom when she suddenly experienced an high output of dark red blood from her ostomy site. She became quickly hypotensive and rapid response was called. Patient was then moved to the ICU where a femoral line was put in and she was given IV fluids. She is stable right now. When seen afterwards patient neither any chest pain, shortness of breath, abdominal pain. She does admit to nausea but denies any vomiting. She admits to minor lightheadedness. 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 big toe bunion,. egd/colonoscopy,. dental sx,. bowel rescetion. ileostomy - Social History Smoking Status: Former smoker Smokeless Tobacco Status: No Alcohol use: none Drug use: none - Family History Father Living Status: Hx Family Cardiac Disorders: Yes Hx Family Respiratory Disorders: Yes Hx Family Cancer: No Hx Family GI Disorders: No Hx Family Endocrine Disorder: No Hx Family Neuromuscular Disorders: No Hx Family Neurologic Disorders: No Hx Family HEENT Disorders: No Hx Family Autoimmune Disorders: Yes Medications and Allergies Ibuprofen [Motrin] 800 mg PO Q8HR PRN #42 tablet 10/06/17 [Rx] Cholestyramine 4 gm PO TIDAC 30 Days #120 powd.pack 11/25/17 [Rx] Diphenoxylate/Atropine [Lomotil 2.5 mg/0.025 mg] 2 tab PO QID 12 Days #120 tablet 11/25/17 [Rx] Loperamide [Imodium] 2 mg PO Q4HR 12 Days #144 capsule 11/25/17 [Rx] Omeprazole [PriLOSEC] 20 mg PO DAILY #30 capsule. 11/25/17 [Rx] 3 Allergy/AdvReac Type Severity Reaction Status Date / Time Penicillins [PCN] Allergy Rash Verified 11/09/17 15:30 niacin AdvReac Flushing Verified 11/09/17 15:30 duracef Allergy See Uncoded 11/09/17 15:30 Comments All Systems: The remainder of the systems were reviewed and are negative - Constitutional Constitutional: headache(s), weakness - EENT Nose, mouth and throat: headache(s) - Cardiovascular Cardiovascular: lightheadedness, no chest pain, no chest pain at rest, no dyspnea - Respiratory Respiratory: no dyspnea - Gastrointestinal Gastrointestinal: diarrhea, hematochezia, nausea, no abdominal pain, no vomiting - Neurological Neurological: headache(s), weakness - Psychiatric Psychiatric: as per HPI - Endocrine Endocrine: as per HPI - Hematologic/Lymphatic Hematologic/Lymphatic: as per HPI - Allergic/Immunologic Allergic/Immunologic: as per HPI Physical Examination General appearance: no acute distress Eyes: nonicteric ENT: oropharynx moist Neck: supple Effort: normal Inspection: normal Auscultation: bilateral: clear Percussion: bilateral: not dull Tactile fremitus: bilateral: normal Cardiovascular: regular rate and rhythm Gastrointestinal: soft, non-tender, non-distended, other (Hyperactive bowel sounds) Integumentary: normal Extremities: no cyanosis, no edema, no clubbing, pulses normal, no ischemia or petechiae Musculoskeletal: no deformities, ROM normal normal mental status mood appropriate (Ostomy site on right lower quadrant continues to produce hematochezia. ), affect normal Results - Laboratory Findings CBC and BMP: 12/05/17 12:42 12/05/17 13:19 Abnormal lab findings: Abnormal lab results WBC 3.1 K/mcL (4.3-11.1) L D 12/02/17 05:26 RBC 2.95 M/mcL (3.82-4.97) L 12/02/17 05:26 Hgb 9.2 g/dL (11.5-15.4) L D 12/02/17 05:26 Hct 27.7 % (35.3-44.9) L 12/02/17 05:26 RDW 14.7 % (11.5-14.5) H 12/02/17 05:26 Plt Count 44 K/mcL (140-400) L D 12/02/17 05:26 MPV 12.8 fL (9.4-12.4) H 12/02/17 05:26 Neutrophils # 1.5 K/mcL (1.6-8.9) L 12/02/17 05:26 Platelet Estimate Decreased (Normal) L 12/02/17 05:26 Immature Plt Fraction 8.6 % (1.1-6.1) H 12/02/17 05:26 Sodium 126 mEq/L (136-145) L 12/05/17 04:05 Potassium 3.4 mEq/L (3.5-5.1) L 12/05/17 04:05 Chloride 89 mEq/L (98-107) L 12/05/17 04:05 Carbon Dioxide 34 mEq/L (23-29) H 12/05/17 04:05 Est GFR (Non-Af Amer) 56 (> 60) L 12/05/17 04:05 Glucose 115 mg/dL (70-105) H 12/05/17 04:05 Calculated Osmolality 263 (280-300) L 12/05/17 04:05 Total Bilirubin 1.5 mg/dL (0.3-1.0) H 11/30/17 19:40 Direct Bilirubin 0.5 mg/dL (0.0-0.2) H 11/30/17 19:40 AST 74 Units/L (13-39) H 11/30/17 19:40 ALT 90 Units/L (7-52) H 11/30/17 19:40 Alkaline Phosphatase 171 Units/L (34-104) H 11/30/17 19:40 Albumin 3.3 g/dL (3.5-5.7) L 11/30/17 19:40 Globulin 4.1 g/dL (2.4-3.5) H 11/30/17 19:40 Albumin/Globulin Ratio 0.8 (1.1-2.2) L 11/30/17 19:40 Prealbumin 11.9 mg/dL (17.0-34.0) L 12/03/17 03:30 25-OH Vitamin D Total 13 ng/mL (30-80) L 12/03/17 03:30 Urine Clarity Cloudy (Clear) A 11/30/17 20:26 Urine Protein 30 mg/dL (Neg-Trace) H 11/30/17 20:26 Urine Ketones Trace mg/dL (Negative) H 11/30/17 20:26 Urine Bilirubin Small (Negative) H 11/30/17 20:26 Ur Leukocyte Esterase Trace (Negative) H 11/30/17 20:26 Urine Microscopic RBC 5-15 per hpf (0-3) H 11/30/17 20:26 Urine Microscopic WBC 5-15 per hpf (0-3) H 11/30/17 20:26 Ur Squamous Epith Cells Many per lpf (None-Few) H 11/30/17 20:26 Ur Culture Indicated? NO. (NO) A 11/30/17 20:26 - Clinical Findings Intake & Output: Intake & Output 12/04/17 12/05/17 12/05/17 23:59 07:59 15:59 Intake Total 1000 / 1000 0 / 0 Output Total 900 / 900 1375 / 1375 700 / 700 Balance 100 / 100 -1375 / -1375 -700 / -700 Weight 52.1 kg Consult Discharge Plan - Plan Referrals: Dandy Painter DO [Resident] - Rafita Frazier MD [Non-Partnered Physician] - <Shanice Montelongo S - Last Filed: 12/05/17 22:28> Date of Encounter: 12/05/17 All Systems: The remainder of the systems were reviewed and are negative Physical Examination Vital Signs: Vital Signs, Last 4 Hours Temp Pulse Resp BP Pulse Ox 12/05/17 22:00 76 12 102/59 99 12/05/17 21:00 75 12 92/55 98 12/05/17 20:39 97.0 F L 12/05/17 20:00 76 12 99/67 98 12/05/17 19:00 84 12 83/51 99 Results - Laboratory Findings CBC and BMP: 12/05/17 20:20 12/05/17 15:23 PT/INR, D-dimer PT 17.7 Seconds (9.4-12.1) H 12/05/17 12:45 D-Dimer 1312 ng/mLFEU (0-500) H 12/05/17 12:43 Abnormal lab findings: Abnormal lab results RBC 2.73 M/mcL (3.82-4.97) L 12/05/17 12:42 Hgb 7.4 g/dL (11.5-15.4) L 12/05/17 20:20 Hct 22.2 % (35.3-44.9) L 12/05/17 20:20 Plt Count 71 K/mcL (140-400) L D 12/05/17 12:42 MPV 12.8 fL (9.4-12.4) H 12/05/17 12:42 Monocytes # 1.5 K/mcL (0.0-1.3) H 12/05/17 12:42 Platelet Estimate Decreased (Normal) L 12/05/17 12:42 Immature Plt Fraction 8.6 % (1.1-6.1) H 12/02/17 05:26 PT 17.7 Seconds (9.4-12.1) H 12/05/17 12:45 D-Dimer 1312 ng/mLFEU (0-500) H 12/05/17 12:43 Sodium 129 mEq/L (136-145) L 12/05/17 15:23 Chloride 97 mEq/L (98-107) L 12/05/17 15:23 Est GFR ( Amer) 56 (> 60) L 12/05/17 15:23 Est GFR (Non-Af Amer) 46 (> 60) L 12/05/17 15:23 Glucose 127 mg/dL (70-105) H 12/05/17 15:23 Calculated Osmolality 270 (280-300) L 12/05/17 15:23 Calcium 7.5 mg/dL (8.6-10.3) L 12/05/17 15:23 Total Bilirubin 1.7 mg/dL (0.3-1.0) H 12/05/17 15:23 Direct Bilirubin 0.5 mg/dL (0.0-0.2) H 11/30/17 19:40 AST 99 Units/L (13-39) H 12/05/17 15:23 ALT 90 Units/L (7-52) H 12/05/17 15:23 Alkaline Phosphatase 123 Units/L (34-104) H 12/05/17 15:23 Serum Total Protein 5.2 g/dL (6.4-8.9) L 12/05/17 15:23 Albumin 2.3 g/dL (3.5-5.7) L 12/05/17 15:23 Albumin/Globulin Ratio 0.8 (1.1-2.2) L 12/05/17 15:23 Prealbumin 11.9 mg/dL (17.0-34.0) L 12/03/17 03:30 25-OH Vitamin D Total 13 ng/mL (30-80) L 12/03/17 03:30 Urine Clarity Cloudy (Clear) A 11/30/17 20:26 Urine Protein 30 mg/dL (Neg-Trace) H 11/30/17 20:26 Urine Ketones Trace mg/dL (Negative) H 11/30/17 20:26 Urine Bilirubin Small (Negative) H 11/30/17 20:26 Ur Leukocyte Esterase Trace (Negative) H 11/30/17 20:26 Urine Microscopic RBC 5-15 per hpf (0-3) H 11/30/17 20:26 Urine Microscopic WBC 5-15 per hpf (0-3) H 11/30/17 20:26 Ur Squamous Epith Cells Many per lpf (None-Few) H 11/30/17 20:26 Ur Culture Indicated? NO. (NO) A 11/30/17 20:26 - Clinical Findings Intake & Output: Intake & Output 12/05/17 12/05/17 12/05/17 07:59 15:59 23:59 Intake Total 0 / 0 2600 / 2600 Output Total 1375 / 1375 1600 / 1600 505 / 505 Balance -1375 / -1375 1000 / 1000 -505 / -505 Weight 52.1 kg 49 kg - Attending Attestation I saw and evaluated this patient and my medical decision-making was reviewed with the Resident Physician. I agree with the documented findings, disposition and treatment plan as described except to the extent set forth below. We independently had [id number] contact with the patient I spent 35 minutes of Critical Care time with this patient. It involved decision making of high complexity to assess, manipulate, and support vital organ system failure and/or to prevent further life threatening deterioration of the patient's condition. The time involved in the performance of separately reportable procedures was not counted toward critical care time. Patient seen and examined at bedside Labs, radiology, chart personally reviewed. Management was reviewed during multidisciplinary critical care rounds. 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 Renal: Labs and output reviewed ID: No active issues Heme/Onc: Patient has chronic Thrombocytopenia due to chronic hepatitis C infection Endo: Glucose Monitored Integ/MSK: Skin Care per routine ICU Nursing Protocol to prevent ulcers. Lines: All lines examined without evidence of infection : Dispo: To keep her in ICU critically ill high chance of re bleed Surgery planning for endoscopy CODE: Full Code
[2017-12-05 13:48] LABS: INR 1.6; Prothrombin Time 17.7 Seconds (9.4-12.1)
[2017-12-05 13:51] LABS: Activated Partial Thrombo Time 31.9 Seconds (26.0-36.0)
[2017-12-05 13:53] LABS: Calcium 7.9 mg/dL (8.6-10.3)
[2017-12-05 13:55] LABS: Glucose 168 mg/dL (70-105)
[2017-12-05 13:56] LABS: Troponin I < 0.03 ng/mL (< 0.04)
[2017-12-05 14:05] LABS: Platelet Estimate Decreased (Normal)
[2017-12-05] MEDS ORDERED: Magnesium Sulfate 2 GM in D5% in Water 100 ML IVPB PRN (15:42)
[2017-12-05 16:55] LABS: Albumin 2.3 g/dL (3.5-5.7); Albumin/Globulin Ratio 0.8 (1.1-2.2); Bilirubin,Total 1.7 mg/dL (0.3-1.0); Calcium 7.5 mg/dL (8.6-10.3); Globulin 2.9 g/dL (2.4-3.5); Potassium 3.5 mEq/L (3.5-5.1); Total Protein 5.2 g/dL (6.4-8.9)
[2017-12-05] MEDS: Potassium Phosphate 44 MEQ in 0.9 % Sodium Chloride 250 ML IVPB PRN (18:10)
[2017-12-05 21:23] LABS: Hematocrit 22.2 % (35.3-44.9); Hemoglobin 7.4 g/dL (11.5-15.4)
[2017-12-06] MEDS ORDERED: Acetaminophen 325 MG TABLET PO ONE (03:12)
[2017-12-06] MEDS: 0.9 % Sodium Chloride 1,000 ML IVC SCH ×2 (03:25→10:48)
[2017-12-06 03:49] LABS: Eosinophils % 0.8 %; Hematocrit 21.7 % (35.3-44.9); Hemoglobin 7.3 g/dL (11.5-15.4); Immature Granulocytes % 0.3 % (0-4); Mean Corpuscular HGB Conc 33.6 g/dL (31.6-35.5); Mean Corpuscular Hemoglobin 30.8 pg (28.0-33.3); Mean Corpuscular Volume 91.6 fL (83.0-100.0); Mean Platelet Volume 12.6 fL (9.4-12.4); Red Blood Count 2.37 M/mcL (3.82-4.97); Red Cell Distribution Width 14.6 % (11.5-14.5)
[2017-12-06 03:50] LABS: Basophils % 0.2 %; Eosinophils # 0.1 K/mcL (0.0-0.6); Immature Platelets 10.1 % (1.1-6.1); Lymphocytes # 1.9 K/mcL (0.6-4.6); Lymphocytes % 31.3 %; Monocytes # 0.7 K/mcL (0.0-1.3); Monocytes % 11.9 %; Neutrophils # 3.3 K/mcL (1.6-8.9); Segmented Neutrophils % 55.5 %
[2017-12-06 03:56] LABS: Platelet Count 59 K/mcL (140-400)
[2017-12-06 04:06] LABS: BUN/Creatinine Ratio 15 (6-26); Blood Urea Nitrogen 15 mg/dL (8-23); Calcium 7.9 mg/dL (8.6-10.3); Carbon Dioxide 30 mEq/L (23-29); Chloride 96 mEq/L (98-107); Glucose 108 mg/dL (70-105); Magnesium 2.1 mg/dL (1.6-2.6); Osmolality,Calculated 275 (280-300); Phosphorous 5.5 mg/dL (2.7-4.5); Potassium 3.7 mEq/L (3.5-5.1); Sodium 132 mEq/L (136-145); eGFR For African Americans > 60 (> 60); eGFR For Non-African Americans 55 (> 60)
[2017-12-06] MEDS: traMADol 50 MG TABLET PO SCH ×3 (05:34→21:18)
[2017-12-06] MEDS: Pantoprazole 40 MG VIAL IVP SCH ×2 (05:34→17:30)
[2017-12-06] MEDS: Cholestyramine 4 GM POWD.PACK PO SCH ×3 (07:51→15:32)
[2017-12-06] MEDS: Psyllium 1 PACKET POWD.PACK PO SCH ×3 (07:51→21:30)
[2017-12-06] MEDS: Diphenoxylate/Atropine 1 TAB TABLET PO SCH ×4 (07:52→21:30)
[2017-12-06] MEDS: Zinc Sulfate 220 MG CAPSULE PO SCH (07:52)
[2017-12-06] MEDS: Loperamide 1 MG/5 ML UDC PO SCH ×4 (07:52→21:30)
--- NOTE | 2017-12-06 08:54 | General Surgery Progress Note ---
Date of Encounter: 12/06/17 Time of Encounter: 08:49 - Assessment and Plan (1) Dehydration Current Visit: Yes Status: Acute 62F h/o diverticulitis s/p sigmoidectomy with diverting ileostomy readmitted for dehydration due to inability for PO intake to keep up with ileostomy output ; max med effort to control ileostomy output; LGIB on 12/05; no identifiable source; neuro: pain control; keep comfortable cardiac: RRR; no acute issues pulm: pulm toileting; no acute issues GI: keep NPO; consider starting tube feeds; mild elevation of T bili - likley related to dehydration : cont to monitor UOP ID: no acute issues heme: trend h/h; plan for upper and lower endoscopy today FEN: NPO; replete lytes disp: okay for transfer to step down; Subjective Patient reports: no new complaints, other Objective Vital Signs - Last 8 Hours Temp Pulse Resp BP Pulse Ox 12/06/17 08:00 77 14 101/51 99 12/06/17 07:00 97.8 F 72 14 105/54 98 12/06/17 06:00 88 12 95/53 98 12/06/17 05:06 97.2 F L 12/06/17 05:00 79 12 102/47 98 12/06/17 04:00 82 16 122/74 98 12/06/17 03:00 84 14 129/76 99 12/06/17 02:00 79 18 111/71 98 12/06/17 01:00 82 12 101/57 97 Intake and Output 12/05/17 12/06/17 12/06/17 23:59 07:59 15:59 Intake Total 1664 / 1664 Output Total 505 / 505 2089 / 2090 Balance -505 / -505 -426 / -426 Intake: IV Fluids 1664 / 1664 0.9 % Sodium Chloride 1,000 ML 1000 / 1000 @ 125 mls/hr IVC .Q8H MARIANA Rx#: [id number] Magnesium Sulfate 2 GM In 104 / 104 Dextrose 5% 100 ML @ 52 mls/hr IVPB Q6H PRN Rx#:[id number] Potassium Chloride 10 mEq/100mL 300 / 300 10 meq In 100 ml @ 100 mls/hr IVPB Q1H PRN Rx#:[id number] Potassium Phosphate 44 MEQ In 0 260 / 260 .9 % Sodium Chloride 250 ML @ 40 mls/hr IVPB Q10H PRN Rx#: [id number] Output: Stool 225 / 225 415 / 415 Catheter 130 / 130 625 / 625 Gastric Drainage 150 / 150 1050 / 1050 Other: Blood Glucose* 114 - General physical appearance no distress - Respiratory normal expansion, normal respiratory effort - Cardiovascular Cardiovascular exam: Present: RRR - Abdomen Abdomen: Present: soft, non tender - Neurologic CN 2-12 grossly intact - Psychiatric oriented to time, oriented to person, oriented to place - Labs 12/06/17 03:35 12/06/17 03:35 Diabetes panel 12/05/17 12/05/17 12/05/17 Range/Units 12:42 13:19 15:23 Sodium 127 L 129 L (136-145) mEq/L Potassium 3.0 L 3.5 (3.5-5.1) mEq/L Chloride 90 L 97 L (98-107) mEq/L Carbon Dioxide 32 H 29 (23-29) mEq/L BUN 14 14 (8-23) mg/dL Creatinine 1.39 H 1.18 (0.60-1.20) mg/dL Glucose 170 H 168 H 127 H (70-105) mg/dL Calcium 7.9 L 7.5 L (8.6-10.3) mg/dL AST 99 H (13-39) Units/L ALT 90 H (7-52) Units/L Alkaline Phosphatase 123 H (34-104) Units/L Albumin 2.3 L (3.5-5.7) g/dL 12/06/17 Range/Units 03:35 Sodium 132 L (136-145) mEq/L Potassium 3.7 (3.5-5.1) mEq/L Chloride 96 L (98-107) mEq/L Carbon Dioxide 30 H (23-29) mEq/L BUN 15 (8-23) mg/dL Creatinine 1.02 (0.60-1.20) mg/dL Glucose 108 H (70-105) mg/dL Calcium 7.9 L (8.6-10.3) mg/dL AST (13-39) Units/L ALT (7-52) Units/L Alkaline Phosphatase (34-104) Units/L Albumin (3.5-5.7) g/dL Calcium panel 12/03/17 12/05/17 12/05/17 Range/Units 03:30 12:42 15:23 Calcium 7.9 L 7.5 L (8.6-10.3) mg/dL Phosphorus (2.7-4.5) mg/dL Albumin 2.3 L (3.5-5.7) g/dL 25-OH Vitamin D Total 13 L (30-80) ng/mL 12/06/17 Range/Units 03:35 Calcium 7.9 L (8.6-10.3) mg/dL Phosphorus 5.5 H (2.7-4.5) mg/dL Albumin (3.5-5.7) g/dL 25-OH Vitamin D Total (30-80) ng/mL Pituitary panel 12/05/17 12/05/17 12/05/17 Range/Units 12:42 13:19 15:23 Sodium 127 L 129 L (136-145) mEq/L Potassium 3.0 L 3.5 (3.5-5.1) mEq/L Chloride 90 L 97 L (98-107) mEq/L Carbon Dioxide 32 H 29 (23-29) mEq/L BUN 14 14 (8-23) mg/dL Creatinine 1.39 H 1.18 (0.60-1.20) mg/dL Glucose 170 H 168 H 127 H (70-105) mg/dL Calcium 7.9 L 7.5 L (8.6-10.3) mg/dL 12/06/17 Range/Units 03:35 Sodium 132 L (136-145) mEq/L Potassium 3.7 (3.5-5.1) mEq/L Chloride 96 L (98-107) mEq/L Carbon Dioxide 30 H (23-29) mEq/L BUN 15 (8-23) mg/dL Creatinine 1.02 (0.60-1.20) mg/dL Glucose 108 H (70-105) mg/dL Calcium 7.9 L (8.6-10.3) mg/dL Adrenal panel 12/05/17 12/05/17 12/05/17 Range/Units 12:42 13:19 15:23 Sodium 127 L 129 L (136-145) mEq/L Potassium 3.0 L 3.5 (3.5-5.1) mEq/L Chloride 90 L 97 L (98-107) mEq/L Carbon Dioxide 32 H 29 (23-29) mEq/L BUN 14 14 (8-23) mg/dL Creatinine 1.39 H 1.18 (0.60-1.20) mg/dL Glucose 170 H 168 H 127 H (70-105) mg/dL Calcium 7.9 L 7.5 L (8.6-10.3) mg/dL Total Bilirubin 1.7 H (0.3-1.0) mg/dL AST 99 H (13-39) Units/L ALT 90 H (7-52) Units/L Alkaline Phosphatase 123 H (34-104) Units/L Albumin 2.3 L (3.5-5.7) g/dL 12/06/17 Range/Units 03:35 Sodium 132 L (136-145) mEq/L Potassium 3.7 (3.5-5.1) mEq/L Chloride 96 L (98-107) mEq/L Carbon Dioxide 30 H (23-29) mEq/L BUN 15 (8-23) mg/dL Creatinine 1.02 (0.60-1.20) mg/dL Glucose 108 H (70-105) mg/dL Calcium 7.9 L (8.6-10.3) mg/dL Total Bilirubin (0.3-1.0) mg/dL AST (13-39) Units/L ALT (7-52) Units/L Alkaline Phosphatase (34-104) Units/L Albumin (3.5-5.7) g/dL - Imaging CT scan - abdomen: report reviewed, image reviewed CT Scan - head: report reviewed, image reviewed - VTE Documentation of Mechanical Device: Intermittent pneumatic compression device Consult Discharge Plan - Plan Referrals: Dandy Painter DO [Resident] - Rafita Frazier MD [Non-Partnered Physician] -
[2017-12-06 09:34] LABS: Basophils % 0.3 %; Eosinophils # 0.1 K/mcL (0.0-0.6); Eosinophils % 1.2 %; Hematocrit 19.3 % (35.3-44.9); Hemoglobin 6.6 g/dL (11.5-15.4); Immature Granulocytes % 0.3 % (0-4); Lymphocytes % 33.2 %; Mean Corpuscular HGB Conc 34.2 g/dL (31.6-35.5); Mean Corpuscular Hemoglobin 31.9 pg (28.0-33.3); Mean Corpuscular Volume 93.2 fL (83.0-100.0); Mean Platelet Volume 12.6 fL (9.4-12.4); Monocytes # 0.9 K/mcL (0.0-1.3); Monocytes % 15.7 %; Neutrophils # 2.9 K/mcL (1.6-8.9); Platelet Count 63 K/mcL (140-400); Red Blood Count 2.07 M/mcL (3.82-4.97); Red Cell Distribution Width 14.8 % (11.5-14.5); Segmented Neutrophils % 49.3 %
--- NOTE | 2017-12-06 10:51 | Pulmonology Progress Note ---
<RodrigueBenedict chavarria - Last Filed: 12/06/17 14:04> Date of Encounter: 12/06/17 Time of Encounter: 10:40 Assessment and Plan (1) GI bleed Current Visit: No Status: Resolved Hemoglobin today fell from 7.4 down to 6.6. Patient had episode of moderate dark red bleeding from ostomy site yesterday afternoon. Her BP today is stable at 97/61. HR is 75. - 1 U PRBC. - Continue to trend H/H and follow-up in the afternoon. - Transfuse as needed if hgb is < 7. - NPO. - Plan for EGD and colonoscopy later today. Qualifiers: GI bleed type/associated pathology: unspecified gastrointestinal hemorrhage type Qualified Code(s): K92.2 - Gastrointestinal hemorrhage, unspecified (2) Hypotension Current Visit: Yes Status: Acute BP of 97/61. Secondary to dehydration. Patient was started on IVF yesterday. Patient has history of poor PO intake. She has repeatedly refused PEG tube placement in the past but today she has agreed to a PEG tube placement. - Stop IV fluids. Patient will be given 1 U of PRBC due to anemia with hgb < 7. Qualifiers: Qualified Code(s): I95.89 - Other hypotension; E86.1 - Hypovolemia (3) Thrombocytopenia Current Visit: No Status: Chronic Plat[place] level decreased from 71 to 63. Chronic issue likely secondary to chronic hepatitis. (4) History of hepatitis B Current Visit: Yes Status: Acute (5) History of hepatitis C Current Visit: Yes Status: Acute (6) Hyperbilirubinemia Current Visit: Yes Status: Acute Lab values show elevated T. bili yesterday at 1.7. She appears to have a baseline from 1.5 to 2.4 based on visits back to October. Likely secondary to dehydration due to history of poor PO intake. (7) DVT prophylaxis Current Visit: No Status: Acute - EPCDs. Subjective Principal diagnosis: GI bleed Interval history: Patient says that she is doing better than yesterday. She denies any nausea or vomiting. Admits to minor light-headedness. She denies any abdominal pain. Admits to a dry cough. Denies any fever or chills. Objective PUL Vital signs: Last Vital Signs Temp 97.8 F 12/06/17 07:00 Pulse 84 06/26/18 10:00 Resp 14 12/06/17 10:00 BP 90/58 12/06/17 10:00 Pulse Ox 99 12/06/17 10:00 General appearance: no acute distress Eyes: nonicteric ENT: oropharynx moist Neck: supple Effort: normal Auscultation: bilateral: clear Percussion: bilateral: not dull Tactile fremitus: bilateral: normal Cardiovascular: regular rate and rhythm Gastrointestinal: normoactive bowel sounds, soft, tender, non-distended, other ( Ostomy shows liquid fecal output with no signs of bleeding. ) Extremities: no cyanosis, no edema, no clubbing, pink and warm, pulses normal, no ischemia or petechiae Musculoskeletal: no deformities, ROM normal normal mental status mood appropriate, affect normal Results - Laboratory Findings CBC and BMP: 12/06/17 09:23 12/06/17 03:35 PT/INR, D-dimer PT 17.7 Seconds (9.4-12.1) H 12/05/17 12:45 D-Dimer 1312 ng/mLFEU (0-500) H 12/05/17 12:43 Abnormal lab findings: Abnormal lab results RBC 2.07 M/mcL (3.82-4.97) L 12/06/17 09:23 Hgb 6.6 g/dL (11.5-15.4) L 12/06/17 09:23 Hct 19.3 % (35.3-44.9) L 12/06/17 09:23 RDW 14.8 % (11.5-14.5) H 12/06/17 09:23 Plt Count 63 K/mcL (140-400) L 12/06/17 09:23 MPV 12.6 fL (9.4-12.4) H 12/06/17 09:23 Platelet Estimate Decreased (Normal) L 12/05/17 12:42 Immature Plt Fraction 8.0 % (1.1-6.1) H 12/06/17 09:23 PT 17.7 Seconds (9.4-12.1) H 12/05/17 12:45 D-Dimer 1312 ng/mLFEU (0-500) H 12/05/17 12:43 Sodium 132 mEq/L (136-145) L 12/06/17 03:35 Chloride 96 mEq/L (98-107) L 12/06/17 03:35 Carbon Dioxide 30 mEq/L (23-29) H 12/06/17 03:35 Est GFR (Non-Af Amer) 55 (> 60) L 12/06/17 03:35 Glucose 108 mg/dL (70-105) H 12/06/17 03:35 POC Glucose 120 mg/dL (70-99) H 12/06/17 00:08 Calculated Osmolality 275 (280-300) L 12/06/17 03:35 Calcium 7.9 mg/dL (8.6-10.3) L 12/06/17 03:35 Phosphorus 5.5 mg/dL (2.7-4.5) H 12/06/17 03:35 Total Bilirubin 1.7 mg/dL (0.3-1.0) H 12/05/17 15:23 Direct Bilirubin 0.5 mg/dL (0.0-0.2) H 11/30/17 19:40 AST 99 Units/L (13-39) H 12/05/17 15:23 ALT 90 Units/L (7-52) H 12/05/17 15:23 Alkaline Phosphatase 123 Units/L (34-104) H 12/05/17 15:23 Serum Total Protein 5.2 g/dL (6.4-8.9) L 12/05/17 15:23 Albumin 2.3 g/dL (3.5-5.7) L 12/05/17 15:23 Albumin/Globulin Ratio 0.8 (1.1-2.2) L 12/05/17 15:23 Prealbumin 11.9 mg/dL (17.0-34.0) L 12/03/17 03:30 25-OH Vitamin D Total 13 ng/mL (30-80) L 12/03/17 03:30 Urine Clarity Cloudy (Clear) A 11/30/17 20: Urine Protein 30 mg/dL (Neg-Trace) H 11/30/17 20:26 Urine Ketones Trace mg/dL (Negative) H 11/30/17 20:26 Urine Bilirubin Small (Negative) H 11/30/17 20:26 Ur Leukocyte Esterase Trace (Negative) H 11/30/17 20:26 Urine Microscopic RBC 5-15 per hpf (0-3) H 11/30/17 20:26 Urine Microscopic WBC 5-15 per hpf (0-3) H 11/30/17 20:26 Ur Squamous Epith Cells Many per lpf (None-Few) H 11/30/17 20:26 Ur Culture Indicated? NO. (NO) A 11/30/17 20:26 - Clinical Findings Intake & Output: Intake & Output 12/05/17 12/06/17 12/06/17 23:59 07:59 15:59 Intake Total 1664 / 1664 1100 / 1100 Output Total 505 / 505 2090 / 2090 Balance -505 / -505 -426 / -426 1100 / 1100 - VTE Documentation of Mechanical Device: Intermittent pneumatic compression device Consult Discharge Plan - Plan Referrals: Dandy Painter DO [Resident] - Rafita Frazier MD [Non-Partnered Physician] - <Shanice Montelongo S - Last Filed: 12/07/17 00:25> Date of Encounter: 12/07/17 Objective PUL Vital signs: Last Vital Signs Temp 98.6 F 12/07/17 00:05 Pulse 86 12/07/17 00:00 Resp 16 12/07/17 00:00 BP 119/70 12/07/17 00:00 Pulse Ox 99 12/07/17 00:00 Results - Laboratory Findings CBC and BMP: 12/06/17 20:15 12/06/17 16:10 PT/INR, D-dimer PT 17.7 Seconds (9.4-12.1) H 12/05/17 12:45 D-Dimer 1312 ng/mLFEU (0-500) H 12/05/17 12:43 Abnormal lab findings: Abnormal lab results RBC 2.07 M/mcL (3.82-4.97) L 12/06/17 09:23 Hgb 8.2 g/dL (11.5-15.4) L 12/06/17 20:15 Hct 23.6 % (35.3-44.9) L 12/06/17 20:15 RDW 14.8 % (11.5-14.5) H 12/06/17 09:23 Plt Count 63 K/mcL (140-400) L 12/06/17 09:23 MPV 12.6 fL (9.4-12.4) H 12/06/17 09:23 Platelet Estimate Decreased (Normal) L 12/05/17 12:42 Immature Plt Fraction 8.0 % (1.1-6.1) H 12/06/17 09:23 PT 17.7 Seconds (9.4-12.1) H 12/05/17 12:45 D-Dimer 1312 ng/mLFEU (0-500) H 12/05/17 12:43 Sodium 130 mEq/L (136-145) L 12/06/17 16:10 Est GFR ( Amer) 59 (> 60) L 12/06/17 16:10 Est GFR (Non-Af Amer) 48 (> 60) L 12/06/17 16:10 POC Glucose 120 mg/dL (70-99) H 12/06/17 00:08 Calculated Osmolality 271 (280-300) L 12/06/17 16:10 Calcium 7.9 mg/dL (8.6-10.3) L 12/06/17 16:10 Total Bilirubin 1.7 mg/dL (0.3-1.0) H 12/05/17 15:23 Direct Bilirubin 0.5 mg/dL (0.0-0.2) H 11/30/17 19:40 AST 99 Units/L (13-39) H 12/05/17 15:23 ALT 90 Units/L (7-52) H 12/05/17 15:23 Alkaline Phosphatase 123 Units/L (34-104) H 12/05/17 15:23 Serum Total Protein 5.2 g/dL (6.4-8.9) L 12/05/17 15:23 Albumin 2.3 g/dL (3.5-5.7) L 12/05/17 15:23 Albumin/Globulin Ratio 0.8 (1.1-2.2) L 12/05/17 15:23 Prealbumin 11.9 mg/dL (17.0-34.0) L 12/03/17 03:30 25-OH Vitamin D Total 13 ng/mL (30-80) L 12/03/17 03:30 Urine Clarity Cloudy (Clear) A 11/30/17 20:26 Urine Protein 30 mg/dL (Neg-Trace) H 11/30/17 20:26 Urine Ketones Trace mg/dL (Negative) H 11/30/17 20:26 Urine Bilirubin Small (Negative) H 11/30/17 20:26 Ur Leukocyte Esterase Trace (Negative) H 11/30/17 20:26 Urine Microscopic RBC 5-15 per hpf (0-3) H 11/30/17 20:26 Urine Microscopic WBC 5-15 per hpf (0-3) H 11/30/17 20:26 Ur Squamous Epith Cells Many per lpf (None-Few) H 11/30/17 20:26 Ur Culture Indicated? NO. (NO) A 11/30/17 20:26 - Clinical Findings Intake & Output: Intake & Output 12/06/17 12/06/17 12/07/17 15:59 23:59 07:59 Intake Total 1700 / 1700 Output Total 540 / 540 650 / 650 550 / 550 Balance 1160 / 1160 -650 / -650 -550 / -550 - Attending Attestation - Attending Attestation I saw and evaluated this patient and my medical decision-making was reviewed with the Resident Physician. I agree with the documented findings, disposition and treatment plan as described except to the extent set forth below. We independently had [id number] contact with the patient Patient seen and examined at bedside Labs, radiology, chart personally reviewed. Management was reviewed during multidisciplinary critical care rounds. [facility]: Patient conscious oriented x 3 following commands. Pulm: Patient has acceptable Oxygenation and Ventilation no acitve pulmonary issues Cards: Patient is hemodynmaically stable FEN-GI: Endoscopy which revealed some Portal gastropathy with small duodenal ulcer. To continue PPI IV BID .TPN according to surgery Renal: Labs and output reviewed ID: No active issues Heme/Onc: Patient has chronic Thrombocytopenia due to chronic hepatitis C infection Endo: Glucose Monitored Integ/MSK: Skin Care per routine ICU Nursing Protocol to prevent ulcers. Lines: All lines examined without evidence of infection : Dispo: To keep her in ICU critically ill high chance of re bleed, CODE: Full Code
[2017-12-06] MEDS ORDERED: Lidocaine -MPF 1% 5 ML AMPUL INFILT ONE (11:46)
[2017-12-06] MEDS ORDERED: Naloxone 0.4 MG/ML INJ IVP PRN (12:05)
[2017-12-06] MEDS: OXYCODONE Oral CONC 10 MG/0.5 ML ORAL.SYG SL PRN ×4 (12:15→23:57)
[2017-12-06] MEDS ORDERED: D10% in Water 500 ML IVC PRN (13:13)
[2017-12-06] MEDS ORDERED: Lidocaine -MPF 2% 2 ML VIAL ONE (16:06)
[2017-12-06] MEDS ORDERED: Propofol 500 MG/50 ML INFUS..BTL ONE (16:06)
--- NOTE | 2017-12-06 16:12 | Anesthesia Evaluation PreOp ---
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 11/25/17 [Rx] 3 Allergy/AdvReac Type Severity Reaction Status Date / Time Penicillins [PCN] Allergy Rash Verified 11/09/17 15:30 niacin AdvReac Flushing Verified 11/09/17 15:30 duracef Allergy See Uncoded 11/09/17 15:30 Comments - Meds/Allergy Pre-op Review Medications Reviewed: Yes Allergies Reviewed: Yes Beta Blockers on Current Med List: No Anesthesia Results - Labs 12/06/17 09:23 12/06/17 03:35 - Imaging EKG: report reviewed (Sinus Tach) Anesthesia Exam Vital Signs/O2 Sat/Glucose, Most Current Temp Pulse Resp BP Pulse Ox 12/06/17 15:00 81 14 117/66 99 12/06/17 14:00 80 14 92/59 99 12/06/17 13:50 97.8 F 81 14 92/59 12/06/17 13:35 97.9 F 73 16 96/62 100 12/06/17 13:00 84 14 96/62 98 Height: 5'1 Weight: 108 lbs NPO (# of Hours): MN Pain Scale: 0 - HEENT Pupil (Motor): Pupils equal, EOMI Mallampati: III Teeth: Edentulous Oral Opening: Greater than 3 - WAREDRESSER LOC: Oriented WAREDRESSER Motor: Normal RUE, Normal LUE, Normal RLE, Normal LLE, Normal Face WAREDRESSER Sensory: Normal: RUE, LUE, RLE, LLE, Face - Cardiac Rhythm: Regular Murmur: None JVD: No Carotid Bruit: No - Pulmonary Breath Sounds: bilateral Clear Respiratory Effort: Symmetrical Anesthesia Assess/Plan ASA Score: 3 (HTN) Modified Mouna Scale for Level of Consciousness: Cooperative, oriented, and tranquil Anesthetic Plan: MAC Monitoring Plan: Standard Monitors Recovery Plan: ICU (Discussed MAC, agrees to proceed)
[2017-12-06 16:19] LABS: Hematocrit 24.4 % (35.3-44.9)
[2017-12-06 16:20] LABS: Hemoglobin 8.2 g/dL (11.5-15.4)
--- NOTE | 2017-12-06 16:29 | Electrocardiograph Report ---
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
[2017-12-06 16:39] LABS: Calcium 7.9 mg/dL (8.6-10.3); Phosphorous 3.4 mg/dL (2.7-4.5)
[2017-12-06] MEDS ORDERED: Clinimix E 5%-15% SOLUTION 2,000 ML with MVI, adult with vitamin K 10 ML IVC SCH (17:00)
[2017-12-06 21:49] LABS: Hematocrit 23.6 % (35.3-44.9); Hemoglobin 8.2 g/dL (11.5-15.4)
[2017-12-07 03:58] LABS: Immature Granulocytes % 0.2 % (0-4)
[2017-12-07 04:00] LABS: Basophils % 0.2 %; Eosinophils # 0.1 K/mcL (0.0-0.6); Eosinophils % 1.9 %; Hematocrit 22.2 % (35.3-44.9); Hemoglobin 7.7 g/dL (11.5-15.4); Immature Platelets 6.1 % (1.1-6.1); Lymphocytes # 1.2 K/mcL (0.6-4.6); Lymphocytes % 24.4 %; Mean Corpuscular HGB Conc 34.7 g/dL (31.6-35.5); Mean Corpuscular Hemoglobin 31.4 pg (28.0-33.3); Mean Corpuscular Volume 90.6 fL (83.0-100.0); Mean Platelet Volume 12.5 fL (9.4-12.4); Monocytes # 0.6 K/mcL (0.0-1.3); Monocytes % 12.3 %; Neutrophils # 2.9 K/mcL (1.6-8.9); Red Blood Count 2.45 M/mcL (3.82-4.97)
[2017-12-07 04:02] LABS: Platelet Count 49 K/mcL (140-400)
[2017-12-07 04:15] LABS: BUN/Creatinine Ratio 14 (6-26); Blood Urea Nitrogen 13 mg/dL (8-23); Calcium 7.8 mg/dL (8.6-10.3); Carbon Dioxide 27 mEq/L (23-29); Chloride 100 mEq/L (98-107); Glucose 120 mg/dL (70-105); Osmolality,Calculated 269 (280-300); Potassium 4.3 mEq/L (3.5-5.1); Sodium 129 mEq/L (136-145); eGFR For African Americans > 60 (> 60); eGFR For Non-African Americans 59 (> 60)
[2017-12-07 04:16] LABS: Magnesium 1.6 mg/dL (1.6-2.6); Phosphorous 2.4 mg/dL (2.7-4.5)
[2017-12-07] MEDS: OXYCODONE Oral CONC 10 MG/0.5 ML ORAL.SYG SL PRN ×2 (04:24→18:21)
[2017-12-07] MEDS: Pantoprazole 40 MG VIAL IVP SCH ×2 (05:16→17:46)
[2017-12-07] MEDS: traMADol 50 MG TABLET PO SCH ×3 (05:16→21:49)
[2017-12-07] MEDS ORDERED: Magnesium Sulfate 2 GM in D5% in Water 100 ML IVPB PRN (06:00)
[2017-12-07] MEDS: Cholestyramine 4 GM POWD.PACK PO SCH ×3 (08:00→17:46)
--- NOTE | 2017-12-07 08:00 | Pulmonology Progress Note ---
Date of Encounter: 12/07/17 Time of Encounter: 07:30 Assessment and Plan (1) GI bleed Current Visit: No Status: Resolved Patient GI bleed unclear source according to endoscopist most likely due to duodenal ulcer to continue PPI IV BID . To monitor H and H . Patient also has portal gastropathy needs outpatient follow up with hepatology . Qualifiers: GI bleed type/associated pathology: unspecified gastrointestinal hemorrhage type Qualified Code(s): K92.2 - Gastrointestinal hemorrhage, unspecified (2) Hypovolemic shock Current Visit: Yes Status: Resolved Patient Hypovolemic shock responded to volume resuscitation almost 48 hrs she is hemodynamically stable (3) Thrombocytopenia Current Visit: No Status: Chronic Chronic thrombocytopenia due to chronic hepatitis C. (4) History of hepatitis C Current Visit: Yes Status: Acute (5) DVT prophylaxis Current Visit: No Status: Acute EPCD due to recent GI bleed . Subjective Principal diagnosis: GI bleed Interval history: Patient is doing well Hb Stable had a GI bleed secondary to Duodenal ulcer most likely . Patient is going to get TPN and PO diet to match the ileostomy output . Patient denies any symptoms . Objective PUL Vital signs: Last Vital Signs Temp 98.5 F 12/07/17 07:39 Pulse 100 12/07/17 06:00 Resp 16 12/07/17 06:00 BP 104/63 12/07/17 06:00 Pulse Ox 91 12/07/17 06:00 Auscultation: bilateral: clear Gastrointestinal: other (ileostomy output is non-bloody more of regular secretions color . ) Results - Laboratory Findings CBC and BMP: 12/07/17 03:40 12/07/17 03:40 PT/INR, D-dimer PT 17.7 Seconds (9.4-12.1) H 12/05/17 12:45 D-Dimer 1312 ng/mLFEU (0-500) H 12/05/17 12:43 Abnormal lab findings: Abnormal lab results RBC 2.45 M/mcL (3.82-4.97) L 12/07/17 03:40 Hgb 7.7 g/dL (11.5-15.4) L 12/07/17 03:40 Hct 22.2 % (35.3-44.9) L 12/07/17 03:40 RDW 16.0 % (11.5-14.5) H 12/07/17 03:40 Plt Count 49 K/mcL (140-400) L 12/07/17 03:40 MPV 12.5 fL (9.4-12.4) H 12/07/17 03:40 Platelet Estimate Decreased (Normal) L 12/05/17 12:42 PT 17.7 Seconds (9.4-12.1) H 12/05/17 12:45 D-Dimer 1312 ng/mLFEU (0-500) H 12/05/17 12:43 Sodium 129 mEq/L (136-145) L 12/07/17 03:40 Est GFR (Non-Af Amer) 59 (> 60) L 12/07/17 03:40 Glucose 120 mg/dL (70-105) H 12/07/17 03:40 POC Glucose 118 mg/dL (70-99) H 12/06/17 23:48 Calculated Osmolality 269 (280-300) L 12/07/17 03:40 Calcium 7.8 mg/dL (8.6-10.3) L 12/07/17 03:40 Phosphorus 2.4 mg/dL (2.7-4.5) L 12/07/17 03:40 Total Bilirubin 1.7 mg/dL (0.3-1.0) H 12/05/17 15:23 Direct Bilirubin 0.5 mg/dL (0.0-0.2) H 11/30/17 19:40 AST 99 Units/L (13-39) H 12/05/17 15:23 ALT 90 Units/L (7-52) H 12/05/17 15:23 Alkaline Phosphatase 123 Units/L (34-104) H 12/05/17 15:23 Serum Total Protein 5.2 g/dL (6.4-8.9) L 12/05/17 15:23 Albumin 2.3 g/dL (3.5-5.7) L 12/05/17 15:23 Albumin/Globulin Ratio 0.8 (1.1-2.2) L 12/05/17 15:23 Prealbumin 11.9 mg/dL (17.0-34.0) L 12/03/17 03:30 Triglycerides 160 mg/dL (< 150) H 12/07/17 03:40 25-OH Vitamin D Total 13 ng/mL (30-80) L 12/03/17 03:30 Urine Clarity Cloudy (Clear) A 11/30/17 20:26 Urine Protein 30 mg/dL (Neg-Trace) H 11/30/17 20:26 Urine Ketones Trace mg/dL (Negative) H 11/30/17 20:26 Urine Bilirubin Small (Negative) H 11/30/17 20:26 Ur Leukocyte Esterase Trace (Negative) H 11/30/17 20:26 Urine Microscopic RBC 5-15 per hpf (0-3) H 11/30/17 20:26 Urine Microscopic WBC 5-15 per hpf (0-3) H 11/30/17 20:26 Ur Squamous Epith Cells Many per lpf (None-Few) H 11/30/17 20:26 Ur Culture Indicated? NO. (NO) A 11/30/17 20:26 - Clinical Findings Intake & Output: Intake & Output 12/06/17 12/06/17 12/07/17 15:59 23:59 07:59 Intake Total 1700 / 1700 250 / 250 Output Total 540 / 540 650 / 650 1550 / 1550 Balance 1160 / 1160 -650 / -650 -1300 / -1300 - VTE Documentation of Mechanical Device: Intermittent pneumatic compression device Consult Discharge Plan - Plan Referrals: Dandy Painter DO [Resident] - Rafita Frazier MD [Non-Partnered Physician] -
[2017-12-07] MEDS: Loperamide 1 MG/5 ML UDC PO SCH ×4 (08:05→20:26)
[2017-12-07] MEDS: Zinc Sulfate 220 MG CAPSULE PO SCH (08:05)
[2017-12-07] MEDS: Diphenoxylate/Atropine 1 TAB TABLET PO SCH ×4 (08:05→20:26)
[2017-12-07] MEDS: Psyllium 1 PACKET POWD.PACK PO SCH ×3 (08:10→20:26)
[2017-12-07] MEDS: Potassium Phosphate 44 MEQ in 0.9 % Sodium Chloride 250 ML IVPB PRN (09:00)
[2017-12-07] MEDS ORDERED: Clinimix E 5%-15% SOLUTION 2,000 ML with MVI, adult with vitamin K 10 ML IVC SCH (09:49)
[2017-12-07] MEDS ORDERED: Naloxone 0.4 MG/ML INJ IVP PRN (09:49)
[2017-12-07] MEDS ORDERED: D10% in Water 500 ML IVC PRN (09:49)
--- NOTE | 2017-12-07 10:46 | General Surgery Progress Note ---
Date of Encounter: 12/07/17 Time of Encounter: 10:44 - Assessment and Plan (1) Dehydration Current Visit: Yes Status: Acute 62F h/o diverticulitis s/p sigmoidectomy with diverting ileostomy readmitted for dehydration due to inability for PO intake to keep up with ileostomy output ; max med effort to control ileostomy output; LGIB on 12/05; s/p EGD, push enteroscopy and sigmoidoscopy; transfer out of the unitl encourage PO intake, ensure/boost QID replete lytes plan for OR this admission to take down ileostomy in light of intact anastamosis Subjective Patient reports: no new complaints Objective Vital Signs - Last 8 Hours Temp Pulse Resp BP Pulse Ox 12/07/17 08:00 91 14 96/52 99 12/07/17 07:39 98.5 F 12/07/17 06:00 100 16 104/63 91 12/07/17 05:00 102 18 107/75 92 12/07/17 04:00 98.6 F 89 14 94/55 94 12/07/17 03:00 92 12 85/45 94 Intake and Output 12/06/17 12/07/17 12/07/17 23:59 07:59 15:59 Intake Total 250 / 250 104 / 104 Output Total 650 / 650 1550 / 1550 275 / 275 Balance -650 / -650 -1300 / -1300 -171 / -171 Intake: IV Fluids 250 / 250 104 / 104 Intralipid 20% 250 ML @ 21 mls/ 250 / 250 hr IVPB DAILY@1700 [facility] Rx#: [id number] Magnesium Sulfate 2 GM In 104 / 104 Dextrose 5% 100 ML @ 52 mls/hr IVPB Q6H PRN Rx#:[id number] Output: Urine 75 / 75 Stool 650 / 650 200 / 200 Catheter 650 / 650 900 / 900 Other: Stool Consistency liquid Blood Glucose* 95 118 - General physical appearance no distress - Respiratory normal expansion, normal respiratory effort - Cardiovascular Cardiovascular exam: Present: RRR - Abdomen Abdomen: Present: soft, non tender (non bloody output; pink, viable, functioning ) - Incision Incision: Present: clean and dry, intact - Neurologic CN 2-12 grossly intact - Psychiatric oriented to time, oriented to person, oriented to place - Labs 12/07/17 03:40 12/07/17 03:40 Diabetes panel 12/06/17 12/07/17 12/07/17 Range/Units 16:10 03:40 03:40 Sodium 130 L 129 L (136-145) mEq/L Potassium 4.0 4.3 (3.5-5.1) mEq/L Chloride 99 100 (98-107) mEq/L Carbon Dioxide 28 27 (23-29) mEq/L BUN 15 13 (8-23) mg/dL Creatinine 1.13 0.95 (0.60-1.20) mg/dL Glucose 103 120 H (70-105) mg/dL Calcium 7.9 L 7.8 L (8.6-10.3) mg/dL Triglycerides 160 H (< 150) mg/dL Calcium panel 12/06/17 12/07/17 12/07/17 Range/Units 16:10 03:40 03:40 Calcium 7.9 L 7.8 L (8.6-10.3) mg/dL Phosphorus 3.4 2.4 L (2.7-4.5) mg/dL Pituitary panel 12/06/17 12/07/17 Range/Units 16:10 03:40 Sodium 130 L 129 L (136-145) mEq/L Potassium 4.0 4.3 (3.5-5.1) mEq/L Chloride 99 100 (98-107) mEq/L Carbon Dioxide 28 27 (23-29) mEq/L BUN 15 13 (8-23) mg/dL Creatinine 1.13 0.95 (0.60-1.20) mg/dL Glucose 103 120 H (70-105) mg/dL Calcium 7.9 L 7.8 L (8.6-10.3) mg/dL Adrenal panel 12/06/17 12/07/17 Range/Units 16:10 03:40 Sodium 130 L 129 L (136-145) mEq/L Potassium 4.0 4.3 (3.5-5.1) mEq/L Chloride 99 100 (98-107) mEq/L Carbon Dioxide 28 27 (23-29) mEq/L BUN 15 13 (8-23) mg/dL Creatinine 1.13 0.95 (0.60-1.20) mg/dL Glucose 103 120 H (70-105) mg/dL Calcium 7.9 L 7.8 L (8.6-10.3) mg/dL - VTE Documentation of Mechanical Device: Intermittent pneumatic compression device Consult Discharge Plan - Plan Referrals: Dandy Painter DO [Resident] - Rafita Frazier MD [Non-Partnered Physician] -
[2017-12-07] MEDS ORDERED: Clinimix E 5%-15% SOLUTION 2,000 ML with MVI, adult with vitamin K 10 ML, Trace Eleme... IVC SCH (17:00)
[2017-12-07] MEDS: 0.9 % Sodium Chloride 1,000 ML IVC SCH (17:49)
[2017-12-08 04:51] LABS: BUN/Creatinine Ratio 18 (6-26); Blood Urea Nitrogen 13 mg/dL (8-23); Calcium 7.7 mg/dL (8.6-10.3); Carbon Dioxide 25 mEq/L (23-29); Chloride 105 mEq/L (98-107); Glucose 114 mg/dL (70-105); Magnesium 1.7 mg/dL (1.6-2.6); Osmolality,Calculated 275 (280-300); Phosphorous 2.8 mg/dL (2.7-4.5); Potassium 4.2 mEq/L (3.5-5.1); Sodium 132 mEq/L (136-145); eGFR For African Americans > 60 (> 60); eGFR For Non-African Americans > 60 (> 60)
[2017-12-08] MEDS: Pantoprazole 40 MG VIAL IVP SCH ×2 (05:48→16:15)
[2017-12-08] MEDS: traMADol 50 MG TABLET PO SCH ×3 (05:48→21:34)
[2017-12-08] MEDS ORDERED: 0.9 % Sodium Chloride 1,000 ML IVC SCH (07:45)
[2017-12-08] MEDS: Loperamide 1 MG/5 ML UDC PO SCH ×2 (08:16→21:35)
[2017-12-08] MEDS: Cholestyramine 4 GM POWD.PACK PO SCH (08:16)
[2017-12-08] MEDS: Diphenoxylate/Atropine 1 TAB TABLET PO SCH ×2 (08:16→21:34)
[2017-12-08] MEDS: Psyllium 1 PACKET POWD.PACK PO SCH ×3 (08:16→21:35)
[2017-12-08] MEDS ORDERED: Zinc Sulfate 220 MG CAPSULE PO SCH (09:00)
--- NOTE | 2017-12-08 10:04 | General Surgery Progress Note ---
Date of Encounter: 12/08/17 Time of Encounter: 10:02 - Assessment and Plan (1) Dehydration Current Visit: Yes Status: Acute 62F h/o diverticulitis s/p sigmoidectomy with diverting ileostomy readmitted for dehydration; well healed colo-rectal anastamosis verified on imaging and on endoscopy cont with resuscitation/rebalance of fluid status replete lytes - still hyponatremic (cont salt tabs, NS), hypomagnesemia (Mg- sulfate) pre-alb@ 7.4: currently on TPN and on FLD; encourage PO intake; boost/ensure QID activity as tolerated: ambulate TID plan for reversal of loop ileostomy on 12/15 Subjective Patient reports: no new complaints Objective Vital Signs - Last 8 Hours Temp Pulse Resp BP Pulse Ox 12/08/17 06:42 99.1 F 85 14 94/54 96 12/08/17 04:02 99.2 F 96 15 103/57 98 Intake and Output 12/07/17 12/08/17 12/08/17 23:59 07:59 15:59 Intake Total 240 / 240 250 / 250 2510 / 2510 Output Total 900 / 900 650 / 650 575 / 575 Balance -660 / -660 -400 / -400 1935 / 1935 Intake: IV Fluids 250 / 250 2270 / 2270 Intralipid 20% 250 ML @ 21 mls/ 250 / 250 hr IVPB DAILY@1700 [facility] Rx#: [id number] Oral 240 / 240 0 / 0 240 / 240 Output: Urine 300 / 300 600 / 600 200 / 200 Stool 600 / 600 50 / 50 375 / 375 Other: Meal Full Breakfast Percent of Meal Consumed 100% 5% Stool Size Small Stool Consistency soft soft Stool Color Yellow Yellow Blood Glucose* 127 133 - General physical appearance no distress - Respiratory normal expansion, normal respiratory effort - Cardiovascular Cardiovascular exam: Present: RRR - Abdomen Abdomen: Present: soft, non tender - Incision Incision: Present: clean and dry, intact - Neurologic CN 2-12 grossly intact - Musculoskeletal normal posture - Psychiatric oriented to time, oriented to person, oriented to place - Labs 12/07/17 03:40 12/08/17 04:00 Diabetes panel 12/08/17 Range/Units 04:00 Sodium 132 L (136-145) mEq/L Potassium 4.2 (3.5-5.1) mEq/L Chloride 105 (98-107) mEq/L Carbon Dioxide 25 (23-29) mEq/L BUN 13 (8-23) mg/dL Creatinine 0.71 (0.60-1.20) mg/dL Glucose 114 H (70-105) mg/dL Calcium 7.7 L (8.6-10.3) mg/dL Calcium panel 12/08/17 Range/Units 04:00 Calcium 7.7 L (8.6-10.3) mg/dL Phosphorus 2.8 (2.7-4.5) mg/dL Pituitary panel 12/08/17 Range/Units 04:00 Sodium 132 L (136-145) mEq/L Potassium 4.2 (3.5-5.1) mEq/L Chloride 105 (98-107) mEq/L Carbon Dioxide 25 (23-29) mEq/L BUN 13 (8-23) mg/dL Creatinine 0.71 (0.60-1.20) mg/dL Glucose 114 H (70-105) mg/dL Calcium 7.7 L (8.6-10.3) mg/dL Adrenal panel 12/08/17 Range/Units 04:00 Sodium 132 L (136-145) mEq/L Potassium 4.2 (3.5-5.1) mEq/L Chloride 105 (98-107) mEq/L Carbon Dioxide 25 (23-29) mEq/L BUN 13 (8-23) mg/dL Creatinine 0.71 (0.60-1.20) mg/dL Glucose 114 H (70-105) mg/dL Calcium 7.7 L (8.6-10.3) mg/dL - VTE Documentation of Mechanical Device: Intermittent pneumatic compression device Consult Discharge Plan - Plan Referrals: Dandy Painter DO [Resident] - Rafita Frazier MD [Non-Partnered Physician] -
[2017-12-08] MEDS: 0.9 % Sodium Chloride 1,000 ML IVC SCH ×3 (10:45→15:05)
[2017-12-08] MEDS ORDERED: Clinimix E 5%-15% SOLUTION 2,000 ML with MVI, adult with vitamin K 10 ML, Magnesium S... IVC SCH (17:00)
[2017-12-08] MEDS: OXYCODONE Oral CONC 10 MG/0.5 ML ORAL.SYG SL PRN (21:50)
[2017-12-09 05:14] LABS: VBG Ionized Calcium 1.19 mmol/L (1.15-1.35)
[2017-12-09 05:37] LABS: BUN/Creatinine Ratio 27 (6-26); Blood Urea Nitrogen 16 mg/dL (8-23); Calcium 7.4 mg/dL (8.6-10.3); Carbon Dioxide 23 mEq/L (23-29); Chloride 108 mEq/L (98-107); Glucose 119 mg/dL (70-105); Magnesium 1.9 mg/dL (1.6-2.6); Osmolality,Calculated 278 (280-300); Phosphorous 2.8 mg/dL (2.7-4.5); Potassium 3.9 mEq/L (3.5-5.1); Sodium 133 mEq/L (136-145); eGFR For African Americans > 60 (> 60); eGFR For Non-African Americans > 60 (> 60)
[2017-12-09] MEDS: Pantoprazole 40 MG VIAL IVP SCH ×2 (06:07→17:28)
[2017-12-09] MEDS: traMADol 50 MG TABLET PO SCH ×3 (06:07→21:37)
[2017-12-09] MEDS: Diphenoxylate/Atropine 1 TAB TABLET PO SCH ×4 (09:03→21:37)
[2017-12-09] MEDS: OXYCODONE Oral CONC 10 MG/0.5 ML ORAL.SYG SL PRN ×2 (09:03→17:42)
[2017-12-09] MEDS: Loperamide 1 MG/5 ML UDC PO SCH ×4 (09:03→21:37)
[2017-12-09] MEDS: Cholestyramine 4 GM POWD.PACK PO SCH ×3 (09:04→17:27)
--- NOTE | 2017-12-09 09:17 | General Surgery Progress Note ---
Date of Encounter: 12/09/17 Time of Encounter: 09:16 - Assessment and Plan (1) Dehydration Current Visit: Yes Status: Acute 62F h/o diverticulitis s/p sigmoidectomy with diverting ileostomy readmitted for dehydration; well healed colo-rectal anastamosis verified on imaging and on endoscopy cont with resuscitation/rebalance of fluid status replete lytes - still hyponatremic (cont salt tabs, NS), hypomagnesemia (Mg- sulfate) pre-alb@ 7.4: currently on TPN and on FLD; encourage PO intake; boost/ensure QID activity as tolerated: ambulate TID plan for reversal of loop ileostomy on 12/15 Subjective Patient reports: no new complaints, tolerating liquids well, afebrile Objective Vital Signs - Last 8 Hours Temp Pulse Resp BP Pulse Ox 12/09/17 07:24 98.3 F 65 16 99/62 98 12/09/17 03:54 98.5 F 68 14 102/60 99 Intake and Output 12/08/17 12/09/17 12/09/17 23:59 07:59 15:59 Intake Total 240 / 240 370 / 370 Output Total 1375 / 1375 550 / 550 Balance -1135 / -1135 -180 / -180 Intake: IV Fluids 250 / 250 Intralipid 20% 250 ML @ 21 mls/ 250 / 250 hr IVPB DAILY@1700 [facility] Rx#: [id number] Oral 240 / 240 120 / 120 Output: Urine 750 / 750 400 / 400 Stool 625 / 625 150 / 150 Other: Meal Dinner Percent of Meal Consumed 50% Stool Consistency liquid Stool Characteristics Seedy Seedy Stool Color Yellow Yellow Weight 53.9 kg Blood Glucose* 158 126 Patient Weight 12/09/17 23:59 Weight 53.9 kg - General physical appearance no distress - Respiratory normal expansion, normal respiratory effort - Cardiovascular Cardiovascular exam: Present: RRR - Abdomen Abdomen: Present: soft, non tender - Neurologic CN 2-12 grossly intact - Psychiatric oriented to time, oriented to person, oriented to place - Labs 12/07/17 03:40 12/09/17 04:45 Diabetes panel 12/09/17 Range/Units 04:45 Sodium 133 L (136-145) mEq/L Potassium 3.9 (3.5-5.1) mEq/L Chloride 108 H (98-107) mEq/L Carbon Dioxide 23 (23-29) mEq/L BUN 16 (8-23) mg/dL Creatinine 0.59 L (0.60-1.20) mg/dL Glucose 119 H (70-105) mg/dL Calcium 7.4 L (8.6-10.3) mg/dL Calcium panel 12/09/17 Range/Units 04:45 Calcium 7.4 L (8.6-10.3) mg/dL Phosphorus 2.8 (2.7-4.5) mg/dL Pituitary panel 12/09/17 Range/Units 04:45 Sodium 133 L (136-145) mEq/L Potassium 3.9 (3.5-5.1) mEq/L Chloride 108 H (98-107) mEq/L Carbon Dioxide 23 (23-29) mEq/L BUN 16 (8-23) mg/dL Creatinine 0.59 L (0.60-1.20) mg/dL Glucose 119 H (70-105) mg/dL Calcium 7.4 L (8.6-10.3) mg/dL Adrenal panel 12/09/17 Range/Units 04:45 Sodium 133 L (136-145) mEq/L Potassium 3.9 (3.5-5.1) mEq/L Chloride 108 H (98-107) mEq/L Carbon Dioxide 23 (23-29) mEq/L BUN 16 (8-23) mg/dL Creatinine 0.59 L (0.60-1.20) mg/dL Glucose 119 H (70-105) mg/dL Calcium 7.4 L (8.6-10.3) mg/dL - VTE Documentation of Mechanical Device: Intermittent pneumatic compression device Consult Discharge Plan - Plan Referrals: Dandy Painter DO [Resident] - Rafita Frazier MD [Non-Partnered Physician] -
[2017-12-09] MEDS: Psyllium 1 PACKET POWD.PACK PO SCH ×3 (13:46→21:37)
[2017-12-09] MEDS ORDERED: Clinimix E 5%-15% SOLUTION 2,000 ML with MVI, adult with vitamin K 10 ML, Magnesium S... IVC SCH (17:00)
[2017-12-10 04:57] LABS: BUN/Creatinine Ratio 25 (6-26); Blood Urea Nitrogen 16 mg/dL (8-23); Calcium 7.8 mg/dL (8.6-10.3); Carbon Dioxide 23 mEq/L (23-29); Chloride 105 mEq/L (98-107); Glucose 120 mg/dL (70-105); Magnesium 1.8 mg/dL (1.6-2.6); Osmolality,Calculated 274 (280-300); Phosphorous 2.9 mg/dL (2.7-4.5); Potassium 3.9 mEq/L (3.5-5.1); Sodium 131 mEq/L (136-145); Triglycerides 113 mg/dL (< 150); eGFR For African Americans > 60 (> 60); eGFR For Non-African Americans > 60 (> 60)
[2017-12-10] MEDS: Pantoprazole 40 MG VIAL IVP SCH ×2 (05:40→17:47)
[2017-12-10] MEDS: traMADol 50 MG TABLET PO SCH ×3 (05:40→22:04)
[2017-12-10] MEDS: Cholestyramine 4 GM POWD.PACK PO SCH ×3 (08:15→17:46)
[2017-12-10] MEDS: Diphenoxylate/Atropine 1 TAB TABLET PO SCH ×4 (08:15→20:04)
[2017-12-10] MEDS: Psyllium 1 PACKET POWD.PACK PO SCH ×3 (08:15→20:05)
[2017-12-10] MEDS: Loperamide 1 MG/5 ML UDC PO SCH ×4 (08:15→20:05)
[2017-12-10] MEDS: OXYCODONE Oral CONC 10 MG/0.5 ML ORAL.SYG SL PRN ×2 (08:26→20:05)
--- NOTE | 2017-12-10 14:39 | General Surgery Progress Note ---
Date of Encounter: 12/10/17 Time of Encounter: 14:36 - Assessment and Plan (1) Increased ileostomy output Current Visit: Yes Status: Acute patient tolerating diet no complaints of pain electrolytes ok today, slight hyponatremia, monitor, on salt tabs awaiting loop ileostomy reversal next week on TPN (2) Ileostomy, has currently Current Visit: Yes Status: Chronic patient is planning on having reversal of loop ileostomy next week continue diet low sugar Subjective Patient reports: no new complaints Objective Vital Signs - Last 8 Hours Temp Pulse Resp BP Pulse Ox 12/10/17 11:26 97.9 F 66 15 103/56 99 12/10/17 07:27 98.6 F 71 16 101/63 97 Intake and Output 12/09/17 12/10/17 12/10/17 23:59 07:59 15:59 Intake Total 0 / 0 0 / 0 605 / 605 Output Total 1000 / 1000 1300 / 1300 500 / 500 Balance -1000 / -1000 -1300 / -1300 105 / 105 Intake: Oral 0 / 0 0 / 0 605 / 605 Output: Urine 500 / 500 850 / 850 200 / 200 Stool 500 / 500 450 / 450 300 / 300 Other: Meal fulls Lunch Percent of Meal Consumed 0% 0% Weight 54 kg Blood Glucose* 140 129 134 Patient Weight 12/10/17 23:59 Weight 54 kg - General physical appearance well developed, well nourished, no distress - Eyes PERRL, normal ocular movement - ENT normal mucosa, normocephalic - Neck Neck exam: trachea midline - Respiratory normal expansion, normal respiratory effort - Cardiovascular Cardiovascular exam: Present: RRR - Abdomen Abdomen: Present: bowel sounds present, soft, non tender. Absent: distended, guarding, rebound Hernia: incarcerated (parastomal hernia) - Integumentary no rash, no growths - Neurologic CN 2-12 grossly intact - Musculoskeletal normal posture - Psychiatric oriented to time, oriented to person, oriented to place, speech is normal, memory intact - Labs 12/07/17 03:40 12/10/17 04:20 Diabetes panel 12/10/17 Range/Units 04:20 Sodium 131 L (136-145) mEq/L Potassium 3.9 (3.5-5.1) mEq/L Chloride 105 (98-107) mEq/L Carbon Dioxide 23 (23-29) mEq/L BUN 16 (8-23) mg/dL Creatinine 0.63 (0.60-1.20) mg/dL Glucose 120 H (70-105) mg/dL Calcium 7.8 L (8.6-10.3) mg/dL Triglycerides 113 (< 150) mg/dL Calcium panel 12/10/17 Range/Units 04:20 Calcium 7.8 L (8.6-10.3) mg/dL Phosphorus 2.9 (2.7-4.5) mg/dL Pituitary panel 12/10/17 Range/Units 04:20 Sodium 131 L (136-145) mEq/L Potassium 3.9 (3.5-5.1) mEq/L Chloride 105 (98-107) mEq/L Carbon Dioxide 23 (23-29) mEq/L BUN 16 (8-23) mg/dL Creatinine 0.63 (0.60-1.20) mg/dL Glucose 120 H (70-105) mg/dL Calcium 7.8 L (8.6-10.3) mg/dL Adrenal panel 12/10/17 Range/Units 04:20 Sodium 131 L (136-145) mEq/L Potassium 3.9 (3.5-5.1) mEq/L Chloride 105 (98-107) mEq/L Carbon Dioxide 23 (23-29) mEq/L BUN 16 (8-23) mg/dL Creatinine 0.63 (0.60-1.20) mg/dL Glucose 120 H (70-105) mg/dL Calcium 7.8 L (8.6-10.3) mg/dL - VTE Documentation of Mechanical Device: Intermittent pneumatic compression device Consult Discharge Plan - Plan Referrals: Dandy Painter DO [Resident] - Rafita Frazier MD [Non-Partnered Physician] -
[2017-12-10] MEDS ORDERED: Clinimix E 5%-15% SOLUTION 2,000 ML with MVI, adult with vitamin K 10 ML, Magnesium S... IVC SCH (17:00)
[2017-12-11 05:00] LABS: BUN/Creatinine Ratio 27 (6-26); Blood Urea Nitrogen 17 mg/dL (8-23); Calcium 8.2 mg/dL (8.6-10.3); Carbon Dioxide 24 mEq/L (23-29); Chloride 104 mEq/L (98-107); Glucose 122 mg/dL (70-105); Magnesium 1.7 mg/dL (1.6-2.6); Osmolality,Calculated 273 (280-300); Phosphorous 3.7 mg/dL (2.7-4.5); Potassium 4.4 mEq/L (3.5-5.1); Sodium 130 mEq/L (136-145); Triglycerides 99 mg/dL (< 150); eGFR For African Americans > 60 (> 60); eGFR For Non-African Americans > 60 (> 60)
[2017-12-11] MEDS: Pantoprazole 40 MG VIAL IVP SCH ×2 (05:38→17:55)
[2017-12-11] MEDS: traMADol 50 MG TABLET PO SCH ×3 (05:38→21:56)
[2017-12-11] MEDS: Cholestyramine 4 GM POWD.PACK PO SCH ×3 (08:01→17:55)
[2017-12-11] MEDS: Diphenoxylate/Atropine 1 TAB TABLET PO SCH ×4 (08:02→21:56)
[2017-12-11] MEDS: Loperamide 1 MG/5 ML UDC PO SCH ×4 (08:02→21:56)
[2017-12-11] MEDS: Psyllium 1 PACKET POWD.PACK PO SCH ×3 (08:02→21:56)
[2017-12-11] MEDS ORDERED: 0.9 % Sodium Chloride 500 ML IVC ONE (11:31)
--- NOTE | 2017-12-11 11:36 | General Surgery Progress Note ---
Date of Encounter: 12/11/17 Time of Encounter: 11:34 - Assessment and Plan (1) Increased ileostomy output Current Visit: Yes Status: Acute patient tolerating diet, advance to regular, no sugar or artificial sweetners, no pop no complaints of pain electrolytes ok today, slight hyponatremia, monitor, on salt tabs will increase to TID awaiting loop ileostomy reversal next week on TPN (2) Ileostomy, has currently Current Visit: Yes Status: Chronic patient is planning on having reversal of loop ileostomy next week continue diet low sugar (3) Hyponatremia Current Visit: No Status: Chronic bolus NS, increase salt tabs to TID Subjective Patient reports: no new complaints Objective Vital Signs - Last 8 Hours Temp Pulse Resp BP Pulse Ox 12/11/17 11:11 98.8 F 65 15 98/58 98 12/11/17 07:17 99.1 F 68 15 94/55 98 12/11/17 04:20 98.4 F 78 16 104/62 98 Intake and Output 12/10/17 12/11/17 12/11/17 23:59 07:59 15:59 Intake Total 250 / 250 550 / 550 360 / 360 Output Total 1400 / 1400 1000 / 1000 350 / 350 Balance -1150 / -1150 -450 / -450 10 / 10 Intake: IV Fluids 250 / 250 Intralipid 20% 250 ML @ 21 mls/ 250 / 250 hr IVPB DAILY@1700 [facility] Rx#: [id number] Oral 250 / 250 300 / 300 360 / 360 Output: Urine 800 / 800 700 / 700 250 / 250 Stool 600 / 600 300 / 300 100 / 100 Other: Meal Breakfast Percent of Meal Consumed 25% Stool Consistency liquid Stool Color Yellow Weight 54.5 kg Blood Glucose* 105 130 Patient Weight 12/11/17 23:59 Weight 54.5 kg - General physical appearance well nourished, no distress - Eyes PERRL, normal ocular movement - ENT normal mucosa, normocephalic - Neck Neck exam: trachea midline - Respiratory normal expansion, clear to auscultation - Cardiovascular Cardiovascular exam: Present: RRR - Abdomen Abdomen: Present: bowel sounds present, soft, non tender Additional Comments: loop ileostomy functioning - Integumentary no abnormal pigmentation - Neurologic CN 2-12 grossly intact - Musculoskeletal normal gait, normal posture - Psychiatric oriented to time, oriented to person, oriented to place, speech is normal, memory intact - Labs 12/07/17 03:40 12/11/17 04:24 Diabetes panel 12/11/17 Range/Units 04:24 Sodium 130 L (136-145) mEq/L Potassium 4.4 (3.5-5.1) mEq/L Chloride 104 (98-107) mEq/L Carbon Dioxide 24 (23-29) mEq/L BUN 17 (8-23) mg/dL Creatinine 0.63 (0.60-1.20) mg/dL Glucose 122 H (70-105) mg/dL Calcium 8.2 L (8.6-10.3) mg/dL Triglycerides 99 (< 150) mg/dL Calcium panel 12/11/17 Range/Units 04:24 Calcium 8.2 L (8.6-10.3) mg/dL Phosphorus 3.7 (2.7-4.5) mg/dL Pituitary panel 12/11/17 Range/Units 04:24 Sodium 130 L (136-145) mEq/L Potassium 4.4 (3.5-5.1) mEq/L Chloride 104 (98-107) mEq/L Carbon Dioxide 24 (23-29) mEq/L BUN 17 (8-23) mg/dL Creatinine 0.63 (0.60-1.20) mg/dL Glucose 122 H (70-105) mg/dL Calcium 8.2 L (8.6-10.3) mg/dL Adrenal panel 12/11/17 Range/Units 04:24 Sodium 130 L (136-145) mEq/L Potassium 4.4 (3.5-5.1) mEq/L Chloride 104 (98-107) mEq/L Carbon Dioxide 24 (23-29) mEq/L BUN 17 (8-23) mg/dL Creatinine 0.63 (0.60-1.20) mg/dL Glucose 122 H (70-105) mg/dL Calcium 8.2 L (8.6-10.3) mg/dL - VTE Documentation of Mechanical Device: Intermittent pneumatic compression device Consult Discharge Plan - Plan Referrals: Dandy Painter DO [Resident] - Rafita Frazier MD [Non-Partnered Physician] -
[2017-12-11] MEDS: OXYCODONE Oral CONC 10 MG/0.5 ML ORAL.SYG SL PRN (12:15)
[2017-12-11] MEDS ORDERED: Clinimix E 5%-15% SOLUTION 2,000 ML with MVI, adult with vitamin K 10 ML, Magnesium S... IVC SCH (17:00)
[2017-12-12 04:08] LABS: Basophils % 0.3 %; Eosinophils # 0.1 K/mcL (0.0-0.6); Eosinophils % 4.3 %; Hematocrit 19.8 % (35.3-44.9); Hemoglobin 6.4 g/dL (11.5-15.4); Immature Granulocytes % 0.3 % (0-4); Lymphocytes # 0.9 K/mcL (0.6-4.6); Lymphocytes % 27.6 %; Mean Corpuscular HGB Conc 32.3 g/dL (31.6-35.5); Mean Corpuscular Hemoglobin 30.6 pg (28.0-33.3); Mean Corpuscular Volume 94.7 fL (83.0-100.0); Mean Platelet Volume 11.9 fL (9.4-12.4); Monocytes # 0.5 K/mcL (0.0-1.3); Monocytes % 15.3 %; Neutrophils # 1.7 K/mcL (1.6-8.9); Red Blood Count 2.09 M/mcL (3.82-4.97); Red Cell Distribution Width 15.2 % (11.5-14.5); Segmented Neutrophils % 52.2 %
[2017-12-12 04:10] LABS: Platelet Count 48 K/mcL (140-400)
[2017-12-12 04:16] LABS: BUN/Creatinine Ratio 29 (6-26); Blood Urea Nitrogen 19 mg/dL (8-23); Calcium 8.1 mg/dL (8.6-10.3); Carbon Dioxide 24 mEq/L (23-29); Chloride 106 mEq/L (98-107); Glucose 118 mg/dL (70-105); Magnesium 1.7 mg/dL (1.6-2.6); Osmolality,Calculated 277 (280-300); Phosphorous 3.9 mg/dL (2.7-4.5); Potassium 4.2 mEq/L (3.5-5.1); Sodium 132 mEq/L (136-145); Triglycerides 98 mg/dL (< 150); eGFR For African Americans > 60 (> 60); eGFR For Non-African Americans > 60 (> 60)
[2017-12-12] MEDS: traMADol 50 MG TABLET PO SCH ×3 (05:35→21:30)
[2017-12-12] MEDS: Pantoprazole 40 MG VIAL IVP SCH ×2 (05:35→17:37)
--- NOTE | 2017-12-12 07:52 | General Surgery Progress Note ---
Date of Encounter: 12/12/17 Time of Encounter: 07:51 - Assessment and Plan (1) Dehydration Current Visit: Yes Status: Acute 62F h/o diverticulitis s/p sigmoidectomy with diverting ileostomy readmitted for dehydration; well healed colo-rectal anastamosis verified on imaging and on endoscopy replete lytes transfuse in light of anemia will plan for repeat transfusion on 12/14 of PRBC and platelets OR on 12/15 Subjective Patient reports: no new complaints Objective Vital Signs - Last 8 Hours Temp Pulse Resp BP Pulse Ox 12/12/17 07:17 98.5 F 79 16 119/55 97 12/12/17 04:00 98.4 F 75 15 95/59 95 Intake and Output 12/11/17 12/11/17 12/12/17 15:59 23:59 07:59 Intake Total 600 / 600 240 / 240 250 / 250 Output Total 350 / 350 300 / 300 700 / 700 Balance 250 / 250 -60 / -60 -450 / -450 Intake: IV Fluids 250 / 250 Intralipid 20% 250 ML @ 21 mls/ 250 / 250 hr IVPB DAILY@1700 [facility] Rx#: [id number] Oral 600 / 600 240 / 240 0 / 0 Output: Urine 250 / 250 150 / 150 500 / 500 Stool 100 / 100 150 / 150 200 / 200 Other: Meal Lunch Dinner Percent of Meal Consumed 10% 25% Stool Consistency liquid Stool Color Yellow # Voids 1 Blood Glucose* 134 122 144 - General physical appearance no distress - Respiratory normal expansion - Cardiovascular Cardiovascular exam: Present: RRR - Incision Incision: Present: clean and dry, intact - Neurologic CN 2-12 grossly intact - Labs 12/12/17 03:44 12/12/17 03:44 Diabetes panel 12/12/17 Range/Units 03:44 Sodium 132 L (136-145) mEq/L Potassium 4.2 (3.5-5.1) mEq/L Chloride 106 (98-107) mEq/L Carbon Dioxide 24 (23-29) mEq/L BUN 19 (8-23) mg/dL Creatinine 0.66 (0.60-1.20) mg/dL Glucose 118 H (70-105) mg/dL Calcium 8.1 L (8.6-10.3) mg/dL Triglycerides 98 (< 150) mg/dL Calcium panel 12/12/17 Range/Units 03:44 Calcium 8.1 L (8.6-10.3) mg/dL Phosphorus 3.9 (2.7-4.5) mg/dL Pituitary panel 12/12/17 Range/Units 03:44 Sodium 132 L (136-145) mEq/L Potassium 4.2 (3.5-5.1) mEq/L Chloride 106 (98-107) mEq/L Carbon Dioxide 24 (23-29) mEq/L BUN 19 (8-23) mg/dL Creatinine 0.66 (0.60-1.20) mg/dL Glucose 118 H (70-105) mg/dL Calcium 8.1 L (8.6-10.3) mg/dL Adrenal panel 12/12/17 Range/Units 03:44 Sodium 132 L (136-145) mEq/L Potassium 4.2 (3.5-5.1) mEq/L Chloride 106 (98-107) mEq/L Carbon Dioxide 24 (23-29) mEq/L BUN 19 (8-23) mg/dL Creatinine 0.66 (0.60-1.20) mg/dL Glucose 118 H (70-105) mg/dL Calcium 8.1 L (8.6-10.3) mg/dL - VTE Documentation of Mechanical Device: Intermittent pneumatic compression device Consult Discharge Plan - Plan Referrals: Dandy Painter DO [Resident] - Rafita Frazier MD [Non-Partnered Physician] -
[2017-12-12] MEDS: Cholestyramine 4 GM POWD.PACK PO SCH ×3 (08:22→17:37)
[2017-12-12] MEDS: Loperamide 1 MG/5 ML UDC PO SCH ×4 (08:22→19:59)
[2017-12-12] MEDS: Psyllium 1 PACKET POWD.PACK PO SCH ×3 (08:23→20:00)
[2017-12-12] MEDS: Diphenoxylate/Atropine 1 TAB TABLET PO SCH ×4 (08:23→19:59)
[2017-12-12] MEDS ORDERED: 0.9 % Sodium Chloride 500 ML ONE (12:33)
[2017-12-12] MEDS: OXYCODONE Oral CONC 10 MG/0.5 ML ORAL.SYG SL PRN (15:19)
[2017-12-12] MEDS ORDERED: Clinimix E 5%-15% SOLUTION 2,000 ML with MVI, adult with vitamin K 10 ML, Magnesium S... IVC SCH (17:00)
[2017-12-13 00:41] LABS: Hematocrit 25.1 % (35.3-44.9); Hemoglobin 8.3 g/dL (11.5-15.4)
[2017-12-13 04:37] LABS: BUN/Creatinine Ratio 31 (6-26); Blood Urea Nitrogen 20 mg/dL (8-23); Calcium 8.2 mg/dL (8.6-10.3); Carbon Dioxide 20 mEq/L (23-29); Chloride 108 mEq/L (98-107); Glucose 100 mg/dL (70-105); Magnesium 1.6 mg/dL (1.6-2.6); Osmolality,Calculated 279 (280-300); Phosphorous 3.8 mg/dL (2.7-4.5); Potassium 4.1 mEq/L (3.5-5.1); Sodium 133 mEq/L (136-145); eGFR For African Americans > 60 (> 60); eGFR For Non-African Americans > 60 (> 60)
[2017-12-13] MEDS: traMADol 50 MG TABLET PO SCH ×3 (05:14→22:04)
[2017-12-13] MEDS: Pantoprazole 40 MG VIAL IVP SCH ×2 (05:14→17:32)
--- NOTE | 2017-12-13 08:06 | General Surgery Progress Note ---
Date of Encounter: 12/13/17 Time of Encounter: 08:04 - Assessment and Plan (1) Dehydration Current Visit: Yes Status: Acute 62F h/o diverticulitis s/p sigmoidectomy with diverting ileostomy readmitted for dehydration; well healed colo-rectal anastamosis verified on imaging and on endoscopy rplete lytes; cont IVF, TPN OR on 12/15 Subjective Patient reports: no new complaints, blood in stool (currently resolved; ) Objective Vital Signs - Last 8 Hours Temp Pulse Resp BP Pulse Ox 12/13/17 06:52 98.5 F 76 16 102/62 98 12/13/17 03:25 98.5 F 79 15 108/63 98 Intake and Output 12/12/17 12/13/17 12/13/17 23:59 07:59 15:59 Intake Total 690 / 690 450 / 450 Output Total 675 / 675 1850 / 1850 Balance -1400 / -1400 Intake: IV Fluids 250 / 250 Intralipid 20% 250 ML @ 21 mls/ 250 / 250 hr IVPB DAILY@1700 [facility] Rx#: [id number] Oral 690 / 690 200 / 200 Output: Urine 500 / 500 1050 / 1050 Stool 175 / 175 800 / 800 Other: Meal Dinner Percent of Meal Consumed 30% Stool Size Moderate Stool Consistency loose loose Stool Characteristics Normal for Patient Stool Color Yellow Brown Green Weight 55 kg Blood Glucose* 115 110 - General physical appearance no distress - Respiratory normal expansion, normal respiratory effort - Cardiovascular Cardiovascular exam: Present: RRR - Abdomen Abdomen: Present: soft, non tender Additional Comments: functioning ostomy; pink, viable - Neurologic CN 2-12 grossly intact - Labs 12/13/17 00:37 12/13/17 04:00 Diabetes panel 12/13/17 Range/Units 04:00 Sodium 133 L (136-145) mEq/L Potassium 4.1 (3.5-5.1) mEq/L Chloride 108 H (98-107) mEq/L Carbon Dioxide 20 L (23-29) mEq/L BUN 20 (8-23) mg/dL Creatinine 0.65 (0.60-1.20) mg/dL Glucose 100 (70-105) mg/dL Calcium 8.2 L (8.6-10.3) mg/dL Calcium panel 12/13/17 Range/Units 04:00 Calcium 8.2 L (8.6-10.3) mg/dL Phosphorus 3.8 (2.7-4.5) mg/dL Pituitary panel 12/13/17 Range/Units 04:00 Sodium 133 L (136-145) mEq/L Potassium 4.1 (3.5-5.1) mEq/L Chloride 108 H (98-107) mEq/L Carbon Dioxide 20 L (23-29) mEq/L BUN 20 (8-23) mg/dL Creatinine 0.65 (0.60-1.20) mg/dL Glucose 100 (70-105) mg/dL Calcium 8.2 L (8.6-10.3) mg/dL Adrenal panel 12/13/17 Range/Units 04:00 Sodium 133 L (136-145) mEq/L Potassium 4.1 (3.5-5.1) mEq/L Chloride 108 H (98-107) mEq/L Carbon Dioxide 20 L (23-29) mEq/L BUN 20 (8-23) mg/dL Creatinine 0.65 (0.60-1.20) mg/dL Glucose 100 (70-105) mg/dL Calcium 8.2 L (8.6-10.3) mg/dL - VTE Documentation of Mechanical Device: Intermittent pneumatic compression device Consult Discharge Plan - Plan Referrals: Dandy Painter DO [Resident] - Rafita Frazier MD [Non-Partnered Physician] -
[2017-12-13] MEDS: Cholestyramine 4 GM POWD.PACK PO SCH ×3 (08:07→17:31)
[2017-12-13] MEDS: Psyllium 1 PACKET POWD.PACK PO SCH ×3 (08:07→19:30)
[2017-12-13] MEDS: Diphenoxylate/Atropine 1 TAB TABLET PO SCH ×4 (08:07→19:29)
[2017-12-13] MEDS: Loperamide 1 MG/5 ML UDC PO SCH ×4 (08:07→19:30)
[2017-12-13] MEDS ORDERED: Clinimix E 5%-15% SOLUTION 2,000 ML with MVI, adult with vitamin K 10 ML, Magnesium S... IVC SCH (17:00)
[2017-12-13] MEDS: OXYCODONE Oral CONC 10 MG/0.5 ML ORAL.SYG SL PRN (17:54)
--- NOTE | 2017-12-13 23:08 | Anesthesia Evaluation PreOp ---
Date of Encounter: 12/13/17 Time of Encounter: 22:20 - Past History Planned Operation: Ileostomy Takedown Cardiac History: HTN, Hyperlipidemia Pulmonary History: COPD CLAIM REP History: CVA (No residual weakness per Pt, walks independently, occasional R -sided numbness,), Other (Anxiety/Depression) Other Medical History: Hepatic (HepB, Hep C), Diabetes Type II, GERD, Other (Hx poor appetite, High output ileostomy/Malnutrition on TPN) Anesthesia History: No Prior Anesthetic Complications, Past Anesthesia ( Diverting Colostomy, Hyster, BAck surgery, Bunionectomy, EGD/Colonoscopy, Dental extractions, bowel resection, Ileostomy) Alcohol Use: none Drug use: none Medications and Allergies Ibuprofen [Motrin] 800 mg PO Q8HR PRN #42 tablet 10/06/17 [Rx] Cholestyramine 4 gm PO TIDAC 30 Days #120 powd.pack 11/25/17 [Rx] Diphenoxylate/Atropine [Lomotil 2.5 mg/0.025 mg] 2 tab PO QID 12 Days #120 tablet 11/25/17 [Rx] Loperamide [Imodium] 2 mg PO Q4HR 12 Days #144 capsule 11/25/17 [Rx] Omeprazole [PriLOSEC] 20 mg PO DAILY #30 capsule. 11/25/17 [Rx] 3 Allergy/AdvReac Type Severity Reaction Status Date / Time Penicillins [PCN] Allergy Rash Verified 11/09/17 15:30 niacin AdvReac Flushing Verified 11/09/17 15:30 duracef Allergy See Uncoded 11/09/17 15:30 Comments - Meds/Allergy Pre-op Review Medications Reviewed: Yes Allergies Reviewed: Yes Beta Blockers on Current Med List: No Anesthesia Results - Labs 12/13/17 00:37 12/13/17 04:00 Laboratory Results Laboratory Tests 12/05/17 12/05/17 12/13/17 12:43 12:45 04:00 PT 17.7 H INR 1.6 APTT 31.9 D-Dimer 1312 H Est GFR (Non-Af Amer) > 60 Impressions KUB X-Ray 12/05/17 14:35 IMPRESSION: NG tube tip in the gastric antrum with the proximal side-port in the gastric body. D/ / Gee Spence MD / Gee Spence MD Interpreting Provider: Gee Spence MD Abdomen/Pelvis CT 12/05/17 17:30 IMPRESSION: 1. History of partial resection of the sigmoid colon with no inflammation or complication at the anastomosis site. 2. Ileostomy appears stable with associated parastomal hernia containing several loops of nonobstructed small bowel. D/ / Geovany Renee MD / Geovany Renee MD Interpreting Provider: Geovany Renee MD - Imaging EKG: image reviewed (90bpm - SINUS RHYTHM WITH OCCASIONAL SUPRAVENTRICULAR PREMATURE COMPLEXES ARM LEADS REVERSED Electronically Signed On 12-06-2017 16:27: 53 EDT by Arely Montgomery) Anesthesia Exam Vital Signs Temp Pulse Resp BP Pulse Ox 12/13/17 18:52 98.9 F 75 16 119/63 98 12/13/17 15:07 98.6 F 75 16 96/56 99 12/13/17 10:29 98.7 F 74 14 108/57 98 12/13/17 06:52 98.5 F 76 16 102/62 98 12/13/17 03:25 98.5 F 79 15 108/63 98 Intake and Output 12/13/17 12/13/17 12/13/17 07:59 15:59 23:59 Intake Total 450 / 450 644 / 644 640 / 640 Output Total 1850 / 1850 825 / 825 975 / 975 Balance -1400 / -1400 -181 / -181 -335 / -335 Intake: IV Fluids 250 / 250 104 / 104 Intralipid 20% 250 ML @ 21 mls/ 250 / 250 hr IVPB DAILY@1700 [facility] Rx#: [id number] Magnesium Sulfate 2 GM In 0.9 % 104 / 104 Sodium Chloride 100 ML @ 104 mls/hr IVPB ONCE ONE Rx#: [id number] Oral 200 / 200 540 / 540 640 / 640 Output: Urine 1050 / 1050 550 / 550 700 / 700 Stool 800 / 800 275 / 275 275 / 275 Other: Meal Breakfast Dinner Percent of Meal Consumed 5% 10% Stool Size Moderate Stool Consistency loose liquid loose Stool Characteristics Normal for Patient Stool Color Brown Yellow Yellow Blood Glucose* 110 121 137 Height: 5'1" Weight: 121# BMI = 23 - HEENT Pupil (Motor): Pupils equal, EOMI Mallampati: II Teeth: Edentulous Oral Opening: Greater than 3 - CLAIM REP LOC: Oriented CLAIM REP Motor: Normal RUE, Normal LUE, Normal RLE, Normal LLE, Normal Face CLAIM REP Sensory: Normal: RUE, LUE, RLE, LLE, Face - Cardiac Rhythm: Regular Murmur: None - Pulmonary Breath Sounds: bilateral Clear Respiratory Effort: Symmetrical Anesthesia Assess/Plan ASA Score: 3 (HepB/HepC, HTN, Chol, COPD, Hx CVA, DM, GERD, Anxiety/Depression) Modified [place] Scale for Level of Consciousness: Cooperative, oriented, and tranquil Anesthetic Plan: General Monitoring Plan: Standard Monitors Recovery Plan: PACU
[2017-12-14 04:54] LABS: BUN/Creatinine Ratio 34 (6-26); Blood Urea Nitrogen 22 mg/dL (8-23); Calcium 8.1 mg/dL (8.6-10.3); Carbon Dioxide 24 mEq/L (23-29); Chloride 109 mEq/L (98-107); Glucose 86 mg/dL (70-105); Magnesium 1.9 mg/dL (1.6-2.6); Osmolality,Calculated 281 (280-300); Potassium 4.2 mEq/L (3.5-5.1); Sodium 134 mEq/L (136-145); eGFR For African Americans > 60 (> 60); eGFR For Non-African Americans > 60 (> 60)
[2017-12-14] MEDS: Pantoprazole 40 MG VIAL IVP SCH ×2 (05:44→17:21)
[2017-12-14] MEDS: traMADol 50 MG TABLET PO SCH ×3 (05:44→21:26)
[2017-12-14] MEDS: Loperamide 1 MG/5 ML UDC PO SCH ×4 (08:56→21:27)
[2017-12-14] MEDS: Diphenoxylate/Atropine 1 TAB TABLET PO SCH ×4 (08:56→21:26)
[2017-12-14] MEDS: Cholestyramine 4 GM POWD.PACK PO SCH ×3 (08:58→17:20)
[2017-12-14] MEDS: Psyllium 1 PACKET POWD.PACK PO SCH ×3 (08:59→21:27)
--- NOTE | 2017-12-14 12:27 | General Surgery Progress Note ---
Date of Encounter: 12/14/17 Time of Encounter: 12:15 - Assessment and Plan (1) Dehydration Current Visit: Yes Status: Acute 62F h/o diverticulitis s/p sigmoidectomy with diverting ileostomy readmitted for dehydration; well healed colo-rectal anastamosis verified on imaging and on endoscopy Continue IVF, TPN OR on 12/[address] Frazier for reversal of ileostomy NPO after midnight Subjective Patient reports: no new complaints, tolerating a regular diet, voiding w/o difficulty, flatus, bowel movement, afebrile Objective Vital Signs - Last 8 Hours Temp Pulse Resp BP Pulse Ox 12/14/17 10:59 98.8 F 65 16 99/62 99 12/14/17 07:24 97.6 F 76 16 117/61 98 Intake and Output 12/13/17 12/14/17 12/14/17 23:59 07:59 15:59 Intake Total 640 / 640 370 / 370 360 / 360 Output Total 975 / 975 1225 / 1225 240 / 240 Balance -335 / -335 -855 / -855 120 / 120 Intake: IV Fluids 250 / 250 Intralipid 20% 250 ML @ 21 mls/ 250 / 250 hr IVPB DAILY@1700 [facility] Rx#: [id number] Oral 640 / 640 120 / 120 360 / 360 Output: Urine 700 / 700 1000 / 1000 240 / 240 Stool 275 / 275 225 / 225 Other: Meal Dinner Breakfast Percent of Meal Consumed 10% 100% Stool Consistency loose Stool Color Yellow Weight 55.4 kg Blood Glucose* 137 108 131 Patient Weight 12/14/17 23:59 Weight 55.4 kg - General physical appearance well developed, well nourished, no distress - Eyes normal ocular movement - ENT normal mucosa, atraumatic, normocephalic - Neck Neck exam: trachea midline - Respiratory normal respiratory effort, clear to auscultation - Cardiovascular Cardiovascular exam: Present: RRR - Abdomen Abdomen: Present: bowel sounds present, soft, non tender, wound (ileostomy pink and moist with stool output noted (approximately 300ml noted since midnight)) - Neurologic CN 2-12 grossly intact - Musculoskeletal normal gait, normal posture - Psychiatric oriented to time, oriented to person, oriented to place, speech is normal, memory intact - Labs 12/13/17 00:37 12/14/17 04:00 Diabetes panel 12/14/17 Range/Units 04:00 Sodium 134 L (136-145) mEq/L Potassium 4.2 (3.5-5.1) mEq/L Chloride 109 H (98-107) mEq/L Carbon Dioxide 24 (23-29) mEq/L BUN 22 (8-23) mg/dL Creatinine 0.65 (0.60-1.20) mg/dL Glucose 86 (70-105) mg/dL Calcium 8.1 L (8.6-10.3) mg/dL Calcium panel 12/14/17 12/14/17 Range/Units 04:00 04:00 Calcium 8.1 L (8.6-10.3) mg/dL Phosphorus 4.0 (2.7-4.5) mg/dL Pituitary panel 12/14/17 Range/Units 04:00 Sodium 134 L (136-145) mEq/L Potassium 4.2 (3.5-5.1) mEq/L Chloride 109 H (98-107) mEq/L Carbon Dioxide 24 (23-29) mEq/L BUN 22 (8-23) mg/dL Creatinine 0.65 (0.60-1.20) mg/dL Glucose 86 (70-105) mg/dL Calcium 8.1 L (8.6-10.3) mg/dL Adrenal panel 12/14/17 Range/Units 04:00 Sodium 134 L (136-145) mEq/L Potassium 4.2 (3.5-5.1) mEq/L Chloride 109 H (98-107) mEq/L Carbon Dioxide 24 (23-29) mEq/L BUN 22 (8-23) mg/dL Creatinine 0.65 (0.60-1.20) mg/dL Glucose 86 (70-105) mg/dL Calcium 8.1 L (8.6-10.3) mg/dL - VTE Documentation of Mechanical Device: Intermittent pneumatic compression device Consult Discharge Plan - Plan Referrals: Dandy Painter DO [Resident] - Rafita Frazier MD [Non-Partnered Physician] - - Attending Attestation For this encounter, I have reviewed the INSTRUMENT ENGINEER or PA documentation, treatment plan, and medical decision making; and I have had face to face time with this patient.
[2017-12-14] MEDS ORDERED: Clinimix E 5%-15% SOLUTION 2,000 ML with MVI, adult with vitamin K 10 ML, Magnesium S... IVC SCH (17:00)
[2017-12-14] MEDS: OXYCODONE Oral CONC 10 MG/0.5 ML ORAL.SYG SL PRN (18:28)
[2017-12-15 05:16] LABS: BUN/Creatinine Ratio 36 (6-26); Blood Urea Nitrogen 24 mg/dL (8-23); Calcium 8.2 mg/dL (8.6-10.3); Carbon Dioxide 23 mEq/L (23-29); Chloride 109 mEq/L (98-107); Glucose 96 mg/dL (70-105); Magnesium 1.7 mg/dL (1.6-2.6); Osmolality,Calculated 284 (280-300); Phosphorous 4.1 mg/dL (2.7-4.5); Sodium 135 mEq/L (136-145); eGFR For African Americans > 60 (> 60); eGFR For Non-African Americans > 60 (> 60)
[2017-12-15] MEDS ORDERED: *HR* Rocuronium Bromide 50 MG/5 ML VIAL ONE (06:55)
[2017-12-15] MEDS ORDERED: *HR* Midazolam HCl 2 MG/2 ML VIAL ONE (06:55)
[2017-12-15] MEDS ORDERED: Lidocaine -MPF 2% 2 ML VIAL ONE (06:55)
[2017-12-15] MEDS ORDERED: Ondansetron 4 MG/2 ML VIAL ONE (06:55)
[2017-12-15] MEDS ORDERED: *HR* Propofol 200 MG/20 ML VIAL IVP ONE ×2 (06:55→07:05)
[2017-12-15] MEDS ORDERED: *HR* FentaNYL (PF) 100 MCG/2 ML VIAL ONE ×2 (07:04→09:44)
[2017-12-15] MEDS ORDERED: Acetaminophen IV 1,000 MG/100 ML INFUS..BTL ONE (07:32)
[2017-12-15] MEDS ORDERED: Albumin Human 5% 25.0 GM/500 ML VIAL ONE (07:32)
[2017-12-15] MEDS ORDERED: Clindamycin 600 MG/50 ML 600 MG/50 ML IV.SOLN IVPB ONE (07:38)
[2017-12-15] MEDS ORDERED: *HR* Magnesium Sulfate 1 GM/2 ML VIAL ONE (08:09)
[2017-12-15] MEDS ORDERED: Dexamethasone 4 MG/ML VIAL ONE (08:15)
[2017-12-15] MEDS ORDERED: *HR* Labetalol 20 MG/4 ML SYRINGE IVP PRN (08:35)
[2017-12-15] MEDS ORDERED: *HR* Promethazine 25 MG/ML VIAL IVP PRN (08:35)
[2017-12-15 08:43] LABS: Hemoglobin 7.8 g/dL (11.5-15.4); Immature Granulocytes % 0.3 % (0-4)
[2017-12-15 08:45] LABS: Basophils % 0.5 %; Eosinophils # 0.2 K/mcL (0.0-0.6); Eosinophils % 3.9 %; Hematocrit 24.4 % (35.3-44.9); Immature Platelets 7.2 % (1.1-6.1); Lymphocytes # 0.9 K/mcL (0.6-4.6); Lymphocytes % 23.6 %; Mean Corpuscular Hemoglobin 29.2 pg (28.0-33.3); Mean Corpuscular Volume 91.4 fL (83.0-100.0); Mean Platelet Volume 12.1 fL (9.4-12.4); Monocytes # 0.7 K/mcL (0.0-1.3); Monocytes % 17.1 %; Neutrophils # 2.1 K/mcL (1.6-8.9); Platelet Count 48 K/mcL (140-400); Red Blood Count 2.67 M/mcL (3.82-4.97); Red Cell Distribution Width 16.9 % (11.5-14.5); Segmented Neutrophils % 54.6 %
[2017-12-15] MEDS ORDERED: Neostigmine Methylsulfate 3 MG/3 ML SYRINGE ONE (09:29)
[2017-12-15] MEDS: *HR* Morphine 2 MG/ML SYRINGE IVP PRN ×3 (10:02→10:25)
--- NOTE | 2017-12-15 10:12 | General Surgery Progress Note ---
Date of Encounter: 12/15/17 Time of Encounter: 10:12 - Assessment and Plan (1) Dehydration Current Visit: Yes Status: Acute 62F h/o diverticulitis s/p sigmoidectomy with diverting ileostomy readmitted for dehydration; well healed colo-rectal anastamosis verified on imaging and on endoscopy OR today Subjective Patient reports: no new complaints Objective Vital Signs - Last 8 Hours Temp Pulse Resp BP Pulse Ox 12/15/17 03:49 98.2 F 79 18 102/59 98 Intake and Output 12/14/17 12/15/17 12/15/17 23:59 07:59 15:59 Intake Total 0 / 0 Output Total 850 / 850 650 / 650 50 / 50 Balance -850 / -850 -650 / -650 -50 / -50 Intake: Oral 0 / 0 Output: Urine 200 / 200 500 / 500 Stool 650 / 650 150 / 150 Estimated Blood Loss 50 / 50 Other: Meal npo Weight 53.7 kg Blood Glucose* 121 129 - General physical appearance no distress - Respiratory normal expansion, normal respiratory effort - Cardiovascular Cardiovascular exam: Present: RRR - Abdomen Abdomen: Present: soft, non tender - Neurologic CN 2-12 grossly intact - Psychiatric oriented to time, oriented to person, oriented to place - Labs 12/15/17 08:32 12/15/17 04:32 Diabetes panel 12/15/17 Range/Units 04:32 Sodium 135 L (136-145) mEq/L Potassium 4.0 (3.5-5.1) mEq/L Chloride 109 H (98-107) mEq/L Carbon Dioxide 23 (23-29) mEq/L BUN 24 H (8-23) mg/dL Creatinine 0.66 (0.60-1.20) mg/dL Glucose 96 (70-105) mg/dL Calcium 8.2 L (8.6-10.3) mg/dL Calcium panel 12/15/17 Range/Units 04:32 Calcium 8.2 L (8.6-10.3) mg/dL Phosphorus 4.1 (2.7-4.5) mg/dL Pituitary panel 12/15/17 Range/Units 04:32 Sodium 135 L (136-145) mEq/L Potassium 4.0 (3.5-5.1) mEq/L Chloride 109 H (98-107) mEq/L Carbon Dioxide 23 (23-29) mEq/L BUN 24 H (8-23) mg/dL Creatinine 0.66 (0.60-1.20) mg/dL Glucose 96 (70-105) mg/dL Calcium 8.2 L (8.6-10.3) mg/dL Adrenal panel 12/15/17 Range/Units 04:32 Sodium 135 L (136-145) mEq/L Potassium 4.0 (3.5-5.1) mEq/L Chloride 109 H (98-107) mEq/L Carbon Dioxide 23 (23-29) mEq/L BUN 24 H (8-23) mg/dL Creatinine 0.66 (0.60-1.20) mg/dL Glucose 96 (70-105) mg/dL Calcium 8.2 L (8.6-10.3) mg/dL - VTE Documentation of Mechanical Device: Intermittent pneumatic compression device Consult Discharge Plan - Plan Referrals: Dandy Painter DO [Resident] - Rafita Frazier MD [Non-Partnered Physician] -
--- NOTE | 2017-12-15 10:23 | Operative Note ---
Date of procedure: 12/15/17 Pre-op diagnosis: diverting loop ileostomy, high ileostomy output Post-op diagnosis: same Procedure: open ileostomy takedown, small bowel resection, lysis of adhesions Implants: none Complications: none Anesthesia: GETA Local Anesthetics: 0.5% Sensorcaine HCL SubQ (cc) Surgeon: Rafita Frazier Was there an pharmacy affairs assistant present: Yes Ride Attendant: Lexi Hicks Estimated blood loss (cc): 50 Specimen: small bowel Condition: stable Disposition: PACU Procedure in Detail: The patient was brought into the operating room suite. Placed in the supine position. Mechanical DVT prophylaxis was placed. The patient underwent smooth induction of anesthesia. preoperative antibiotics were given. The patient was prepped and draped in the usual fashion. A timeout was held identifying correct patient, pathology, procedure, and physician. I started by creating a circumferential incision around the ileostomy. I dissected down the the subcutaneous tissue to the abdominal wall fascia. it should be stated that I did lyse adhesions as I proceeded to free up the loop of bowel. It became clear to me that the patient also had a parastomal hernia. I excised as much of the hernia sac as I could, but my primary objective was to free of the bowel to establish continuity. As I entered into the abdominal cavity, i did see a winn of ascitic fluid. I suctioned this fluid. I ensured that the bowel was free from adhesoions circumferentially. It should be stated that I extended fascial opening to ensure that the bowel was as free as possible. I then used the surgical clamp to create a mesenteric window both proximal and distal to the ileostomy opening and, using the MALLORY stapler 75mm bowel load, to staple across the bowel. I then used the impact machine to ligate the mesentery. I then open the bowel and inserted the limbs of the stapler through them to establish my [id number] anastamosis. The stapler fired without issue. I then used the TA stapler to staple close the bowel. The lumen was patent. I then returned the bowel back into the abdomen. I then used the 0-PDS suture to close the fascial defect in an interrupted fashion. I reapproximatd the subcutaneous tissue with interrupted 3-0 vicryl sutures. I then clsoed the skin over a brigida drain with miguelina. The patient tolerated the procedure well. She was escorted to PACu in stable condition.
--- NOTE | 2017-12-15 10:34 | Anesthesia Evaluation Post Op ---
Date of Encounter: 12/15/17 Time of Encounter: 10:33 - Vital Signs Vital Signs: Selected Entries 12/15/17 10:31 Temperature 98.6 F Pulse Rate 76 Respiratory Rate 16 Blood Pressure 137/77 O2 Sat by Pulse Oximetry 99 Oxygen Flow Rate (LPM) 2 - Lungs Lungs: Clear Ascult./Percussion - Airway Airway: Non-obstructed - Cardiovascular Regular Rate - Mental Status Mental Status: Alert & Oriented, Answers Appropriately - Nausea Vomiting Nausea Vomiting: Not Present - Hydration Hydration: NPO - Discharge PostOp Status: Transfer Patient to floor
[2017-12-15] MEDS ORDERED: D10% in Water 500 ML IVC PRN (10:51)
[2017-12-15] MEDS ORDERED: Naloxone 0.4 MG/ML INJ IVP PRN (10:51)
[2017-12-15] MEDS ORDERED: Clinimix E 5%-15% SOLUTION 2,000 ML with MVI, adult with vitamin K 10 ML, Magnesium S... IVC SCH ×3 (10:51→17:00)
[2017-12-15] MEDS: OXYCODONE Oral CONC 10 MG/0.5 ML ORAL.SYG SL PRN ×3 (11:29→21:28)
[2017-12-15] MEDS: 0.9 % Sodium Chloride 1,000 ML IVC SCH ×2 (11:30→20:59)
[2017-12-15] MEDS ORDERED: *HR* HYDROmorphone (PF) 1 MG/ML SYRINGE IVP ONE (11:50)
[2017-12-15] MEDS: traMADol 50 MG TABLET PO SCH ×2 (15:41→22:00)
[2017-12-15] MEDS ORDERED: 0.9 % Sodium Chloride 1,000 ML IVC ONE (18:15)
[2017-12-15] MEDS ORDERED: Ketorolac 30 MG/ML VIAL IVP ONE (21:18)
[2017-12-16] MEDS: OXYCODONE Oral CONC 10 MG/0.5 ML ORAL.SYG SL PRN ×5 (02:21→23:28)
[2017-12-16] MEDS ORDERED: OXYCODONE Oral CONC 10 MG/0.5 ML ORAL.SYG SL ONE (03:35)
[2017-12-16] MEDS ORDERED: *HR* FentaNYL PATCH 25 MCG PATCH TD SCH (03:45)
[2017-12-16] MEDS ORDERED: OXYCODONE Oral CONC 10 MG/0.5 ML ORAL.SYG SL SCH (04:00)
[2017-12-16] MEDS ORDERED: Ketorolac 30 MG/ML VIAL IVP ONE (04:32)
[2017-12-16 06:16] LABS: Hemoglobin 7.3 g/dL (11.5-15.4); Mean Corpuscular Volume 92.8 fL (83.0-100.0); Red Cell Distribution Width 17.2 % (11.5-14.5)
[2017-12-16 06:18] LABS: Hematocrit 23.2 % (35.3-44.9); Immature Granulocytes % 0.4 % (0-4); Immature Platelets 9.3 % (1.1-6.1); Lymphocytes % 19.6 %; Mean Corpuscular HGB Conc 31.5 g/dL (31.6-35.5); Mean Corpuscular Hemoglobin 29.2 pg (28.0-33.3); Monocytes # 0.4 K/mcL (0.0-1.3); Monocytes % 15.1 %; Neutrophils # 1.5 K/mcL (1.6-8.9); Segmented Neutrophils % 64.9 %
[2017-12-16 06:21] LABS: Lymphocytes # 0.5 K/mcL (0.6-4.6); Platelet Count 66 K/mcL (140-400)
[2017-12-16] MEDS: traMADol 50 MG TABLET PO SCH ×3 (06:24→21:02)
[2017-12-16 07:06] LABS: Hypochromasia Present (Not Present); Platelet Estimate Decreased (Normal)
[2017-12-16 07:07] LABS: Anisocytosis 1+ (Not Present)
[2017-12-16 07:08] LABS: Large Platelets Present (Not Present)
[2017-12-16] MEDS ORDERED: 0.9 % Sodium Chloride 1,000 ML IVC ONE (08:06)
--- NOTE | 2017-12-16 08:48 | General Surgery Progress Note ---
Date of Encounter: 12/16/17 Time of Encounter: 08:46 - Assessment and Plan (1) Dehydration Current Visit: Yes Status: Acute 62F h/o diverticulitis s/p sigmoidectomy with diverting ileostomy POD#1 s/p ileostomy reversal cont with current pain regimen - maintain balance between pain control and causing/worsening potential ileus NPO: okay to swab mouth for comfort cont TPN, IVF, replete lytes activity: discussed with patient about the value of ambulation IS usage: 10 breaths an hr while awake awaiting return of bowel function; Subjective Patient reports: no new complaints, still having pain, voiding w/o difficulty, no flatus, no bowel movement, afebrile Objective Vital Signs - Last 8 Hours Temp Pulse Resp BP Pulse Ox 12/16/17 07:46 97.8 F 109 14 90/55 98 12/16/17 06:36 98.2 F 12/16/17 05:44 98.7 F 119 17 102/64 97 12/16/17 03:44 98.2 F 137 14 144/70 95 Intake and Output 12/15/17 12/16/17 12/16/17 23:59 07:59 15:59 Intake Total 1000 / 1000 0 / 0 Output Total 250 / 250 150 / 150 Balance 750 / 750 -150 / -150 Intake: IV Fluids 1000 / 1000 0.9 % Sodium Chloride 1,000 ML 1000 / 1000 @ 30 mls/hr IVC .Q24H [facility] Rx#: [id number] Oral 0 / 0 0 / 0 Output: Urine 250 / 250 150 / 150 Other: Meal npo Weight 54.3 kg Blood Glucose* 183 126 - General physical appearance no distress - Respiratory normal expansion, normal respiratory effort - Cardiovascular Cardiovascular exam: Present: RRR - Abdomen Abdomen: Present: soft, distended, tender (non peritoneal) - Integumentary no rash - Neurologic CN 2-12 grossly intact - Psychiatric oriented to time, oriented to person, oriented to place - Labs 12/16/17 05:59 12/15/17 04:32 - VTE Documentation of Mechanical Device: Intermittent pneumatic compression device Consult Discharge Plan - Plan Referrals: Dandy Painter DO [Resident] - Rafita Frazier MD [Non-Partnered Physician] -
[2017-12-16 10:17] LABS: Calcium 7.5 mg/dL (8.6-10.3); Magnesium 2.2 mg/dL (1.6-2.6); Phosphorous 3.8 mg/dL (2.7-4.5)
[2017-12-16] MEDS: 0.9 % Sodium Chloride 1,000 ML IVC SCH ×4 (11:55→23:29)
[2017-12-16] MEDS ORDERED: 0.9 % Sodium Chloride 250 ML ONE (13:27)
[2017-12-16] MEDS ORDERED: Clinimix E 5%-15% SOLUTION 2,000 ML with MVI, adult with vitamin K 10 ML, Magnesium S... IVC SCH (17:00)
[2017-12-17] MEDS: OXYCODONE Oral CONC 10 MG/0.5 ML ORAL.SYG SL PRN ×2 (03:36→09:47)
[2017-12-17 04:21] LABS: Hematocrit 25.6 % (35.3-44.9); Hemoglobin 8.2 g/dL (11.5-15.4)
[2017-12-17 04:56] LABS: Calcium 8.1 mg/dL (8.6-10.3); Magnesium 2.4 mg/dL (1.6-2.6); Phosphorous 5.2 mg/dL (2.7-4.5)
[2017-12-17] MEDS: traMADol 50 MG TABLET PO SCH ×3 (06:09→22:42)
[2017-12-17 12:25] LABS: Calcium 8.1 mg/dL (8.6-10.3); Potassium 5.9 mEq/L (3.5-5.1)
--- NOTE | 2017-12-17 14:54 | General Surgery Progress Note ---
<Nigel Manjarrez - Last Filed: 12/17/17 14:58> Date of Encounter: 12/17/17 Time of Encounter: 09:00 - Assessment and Plan (1) Abdominal pain Current Visit: Yes Status: Acute NG tube placed cointue pain rgeimen - maintain balance between pain control and potential ileus NPO: swab mouth for comfort Contniue TPN, IVF, electroylte repletion Encourage ambulation and inspirative spirometry Continue monitering bowel function Qualifiers: Abdominal location: generalized Qualified Code(s): R10.84 - Generalized abdominal pain Subjective Patient reports: no flatus, no bowel movement, afebrile Narrative: Patient reports pain with abdominal distension. Objective Vital Signs - Last 8 Hours Temp Pulse Resp BP Pulse Ox 12/17/17 12:32 98.8 F 108 22 109/64 94 Intake and Output 12/16/17 12/17/17 12/17/17 23:59 07:59 15:59 Intake Total 2950 / 2950 0 / 0 0 / 0 Output Total 300 / 300 100 / 100 0 / 0 Balance 2650 / 2650 -100 / -100 0 / 0 Intake: IV Fluids 2600 / 2600 0.9 % Sodium Chloride 1,000 ML 2600 / 2600 @ 16.7 mls/min IVC .Q1H [facility] Rx# :[id number] Oral 0 / 0 0 / 0 0 / 0 Blood Product 350 / 350 Rbcs Leuko Poor As-1 Unit 350 / 350 [id number] Output: Urine 50 / 50 100 / 100 0 / 0 Catheter 250 / 250 Other: Meal npo npo Blood Glucose* 102 117 109 - General physical appearance no distress, moderate pain - Cardiovascular Cardiovascular exam: Present: RRR - Abdomen Abdomen: Present: soft, distended, tender - Integumentary no rash - Psychiatric oriented to time, oriented to person, oriented to place - Labs 12/17/17 04:03 12/17/17 11:51 Diabetes panel 12/17/17 12/17/17 Range/Units 04:03 11:51 Sodium 132 L 132 L (136-145) mEq/L Potassium 5.0 5.9 H (3.5-5.1) mEq/L Chloride 111 H 112 H (98-107) mEq/L Carbon Dioxide 12 L 14 L (23-29) mEq/L BUN 64 H 70 H (8-23) mg/dL Creatinine 1.31 H 1.28 H (0.60-1.20) mg/dL Glucose 103 145 H (70-105) mg/dL Calcium 8.1 L 8.1 L (8.6-10.3) mg/dL Calcium panel 12/17/17 12/17/17 Range/Units 04:03 11:51 Calcium 8.1 L 8.1 L (8.6-10.3) mg/dL Phosphorus 5.2 H (2.7-4.5) mg/dL Pituitary panel 12/17/17 12/17/17 Range/Units 04:03 11:51 Sodium 132 L 132 L (136-145) mEq/L Potassium 5.0 5.9 H (3.5-5.1) mEq/L Chloride 111 H 112 H (98-107) mEq/L Carbon Dioxide 12 L 14 L (23-29) mEq/L BUN 64 H 70 H (8-23) mg/dL Creatinine 1.31 H 1.28 H (0.60-1.20) mg/dL Glucose 103 145 H (70-105) mg/dL Calcium 8.1 L 8.1 L (8.6-10.3) mg/dL Adrenal panel 12/17/17 12/17/17 Range/Units 04:03 11:51 Sodium 132 L 132 L (136-145) mEq/L Potassium 5.0 5.9 H (3.5-5.1) mEq/L Chloride 111 H 112 H (98-107) mEq/L Carbon Dioxide 12 L 14 L (23-29) mEq/L BUN 64 H 70 H (8-23) mg/dL Creatinine 1.31 H 1.28 H (0.60-1.20) mg/dL Glucose 103 145 H (70-105) mg/dL Calcium 8.1 L 8.1 L (8.6-10.3) mg/dL - VTE Documentation of Mechanical Device: Intermittent pneumatic compression device Consult Discharge Plan - Plan Referrals: Dandy Painter DO [Resident] - Rafita Frazier MD [Non-Partnered Physician] - <Rafita Frazier - Last Filed: 12/17/17 22:21> Date of Encounter: 12/17/17 - Assessment and Plan (1) Dehydration Current Visit: Yes Status: Acute Objective Vital Signs - Last 8 Hours Temp Pulse Resp BP Pulse Ox 12/17/17 19:26 98.5 F 107 16 110/71 91 12/17/17 15:39 97.8 F 91 18 109/66 93 Intake and Output 12/17/17 12/17/17 12/17/17 07:59 15:59 23:59 Intake Total 250 / 250 0 / 0 0 / 0 Output Total 100 / 100 0 / 0 700 / 700 Balance 150 / 150 0 / 0 -700 / -700 Intake: IV Fluids 250 / 250 Intralipid 20% 250 ML @ 21 mls/ 250 / 250 hr IVPB DAILY@1700 [facility] Rx#: [id number] Oral 0 / 0 0 / 0 0 / 0 Output: Urine 100 / 100 0 / 0 100 / 100 Gastric Drainage 600 / 600 Right Nare 600 / 600 Other: Meal npo Blood Glucose* 117 109 128 - Labs 12/17/17 04:03 12/17/17 11:51 Diabetes panel 12/17/17 12/17/17 Range/Units 04:03 11:51 Sodium 132 L 132 L (136-145) mEq/L Potassium 5.0 5.9 H (3.5-5.1) mEq/L Chloride 111 H 112 H (98-107) mEq/L Carbon Dioxide 12 L 14 L (23-29) mEq/L BUN 64 H 70 H (8-23) mg/dL Creatinine 1.31 H 1.28 H (0.60-1.20) mg/dL Glucose 103 145 H (70-105) mg/dL Calcium 8.1 L 8.1 L (8.6-10.3) mg/dL Calcium panel 12/17/17 12/17/17 Range/Units 04:03 11:51 Calcium 8.1 L 8.1 L (8.6-10.3) mg/dL Phosphorus 5.2 H (2.7-4.5) mg/dL Pituitary panel 12/17/17 12/17/17 Range/Units 04:03 11:51 Sodium 132 L 132 L (136-145) mEq/L Potassium 5.0 5.9 H (3.5-5.1) mEq/L Chloride 111 H 112 H (98-107) mEq/L Carbon Dioxide 12 L 14 L (23-29) mEq/L BUN 64 H 70 H (8-23) mg/dL Creatinine 1.31 H 1.28 H (0.60-1.20) mg/dL Glucose 103 145 H (70-105) mg/dL Calcium 8.1 L 8.1 L (8.6-10.3) mg/dL Adrenal panel 12/17/17 12/17/17 Range/Units 04:03 11:51 Sodium 132 L 132 L (136-145) mEq/L Potassium 5.0 5.9 H (3.5-5.1) mEq/L Chloride 111 H 112 H (98-107) mEq/L Carbon Dioxide 12 L 14 L (23-29) mEq/L BUN 64 H 70 H (8-23) mg/dL Creatinine 1.31 H 1.28 H (0.60-1.20) mg/dL Glucose 103 145 H (70-105) mg/dL Calcium 8.1 L 8.1 L (8.6-10.3) mg/dL - Attending Attestation patient seen and examined. i have reviewed all labs, imaging, and notes, including this one. i agree with the above assessment and plan and wish to add the following... POD#2 s/p ileostomy takedown; now with post operative ileus, worsenign kidney function despite voiding on her own; cont with TPN keep NPO will consider nephrology consult if continued deterioration of kidney function; will await return of bowel function;
[2017-12-17] MEDS ORDERED: Clinimix 5%-20% SOLUTION 2,000 ML with MVI, adult with vitamin K 10 ML, Trace Element... IVC SCH (17:00)
[2017-12-17] MEDS ORDERED: Clinimix E 5%-15% SOLUTION 2,000 ML with MVI, adult with vitamin K 10 ML, Magnesium S... IVC SCH (17:00)
[2017-12-17] MEDS ORDERED: *HR* Morphine 30 MG/ 30 ML PCA IVC PRN (23:05)
[2017-12-18] MEDS ORDERED: Ondansetron 4 MG/2 ML VIAL IVP PRN ×4 (02:16→11:27)
[2017-12-18 02:29] LABS: Mean Corpuscular HGB Conc 33.1 g/dL (31.6-35.5)
[2017-12-18 02:30] LABS: Hematocrit 24.2 % (35.3-44.9); Mean Corpuscular Hemoglobin 29.5 pg (28.0-33.3); Mean Corpuscular Volume 89.3 fL (83.0-100.0); Mean Platelet Volume 12.9 fL (9.4-12.4); Red Blood Count 2.71 M/mcL (3.82-4.97); Red Cell Distribution Width 17.1 % (11.5-14.5)
[2017-12-18] MEDS ORDERED: OXYCODONE Oral CONC 10 MG/0.5 ML ORAL.SYG SL PRN (02:30)
[2017-12-18 02:31] LABS: Platelet Count 45 K/mcL (140-400)
[2017-12-18 02:38] LABS: INR 1.9; Prothrombin Time 21.3 Seconds (9.4-12.1)
[2017-12-18 02:51] LABS: Calcium 8.5 mg/dL (8.6-10.3); Magnesium 2.6 mg/dL (1.6-2.6); Potassium 4.7 mEq/L (3.5-5.1)
[2017-12-18 02:52] LABS: Eosinophils # 1.5 K/mcL (0.0-0.6); Monocytes # 1.5 K/mcL (0.0-1.3); Neutrophils # 19.5 K/mcL (1.6-8.9)
[2017-12-18 02:54] LABS: Hypochromasia Present (Not Present); Large Platelets Present (Not Present); Macrocytosis Present (Not Present); Platelet Estimate Decreased (Normal); Toxic Granulation Present (Not Present)
--- NOTE | 2017-12-18 06:43 | General Surgery Progress Note ---
Date of Encounter: 12/18/17 Time of Encounter: 06:41 - Assessment and Plan (1) Dehydration Current Visit: Yes Status: Acute 62F h/o diverticulitis s/p sigmoidectomy with diverting ileostomy POD#3 s/p ileostomy reversal; concern for altered mental status, leukocytosis; CT findings demonstrate anasarca, cirrhosis and evidence of portal HTN; also demonstrates contrast within colon or blood; neuro: d/c narcotics, rosaline in light of concern for hepatic dysfunction; serial exams cardiac: sinus tach; concern for PVCs; will order EKG pulm: IS usage; will order CXR to assess for pulm cause of leukocytosis; GI: NPO, TPN; s/p ileostomy reversal; possible retained contrast vs blood from fresh anastamosis; will wait for it to pass; will order ammonia level in light of hepatic dysfunction; will also order hepatic panel : will insert jones, send for UA to account for mental status and leukocytosis ID; No abx at present until source identified or patient becomes febrile; WBC elevated; no bands Heme: no chem dvt prophylaxis in light of hepatic dysfunction (INR @ 1.9) and JACQUIE; cont mech dvt prophylaxis; hold on FFP; pelvic hematoma on CT ordered; h/h largely unchanged; there was some hemorrhagic ascites during last surgery endo: glucose < 150 FEN: NPO, TPN, in light of JACQUIE; hold on repleting lytes until JACQUIE resolved cont to monitor; if continued concern will plan for transfer to step down; Subjective Patient reports: other (difficult to assess patient; unable to tell if she is altered vs choosing to be less responsive; afebrile; mildly tachycardic; oxygen saturation at 100%; BP wnl; RR called concerning drainage from surgical incision , vitals, and patient overall clinical appearance) Objective Vital Signs - Last 8 Hours Temp Pulse Resp BP Pulse Ox 12/18/17 05:22 97.8 F 111 15 126/66 100 12/18/17 04:17 97.0 F L 108 20 128/58 98 12/18/17 01:55 97.8 F 115 28 133/74 100 12/18/17 01:45 97.9 F 106 28 103/56 100 12/18/17 01:35 97 98/50 98 12/18/17 01:30 98.2 F 118 20 128/77 100 12/17/17 23:28 97.6 F 109 16 117/74 90 Intake and Output 12/17/17 12/17/17 12/18/17 15:59 23:59 07:59 Intake Total 0 / 0 0 / 0 0 / 0 Output Total 0 / 0 700 / 700 1400 / 1400 Balance 0 / 0 -700 / -700 -1400 / -1400 Intake: Oral 0 / 0 0 / 0 0 / 0 Output: Urine 0 / 0 100 / 100 700 / 700 Urine/Stool Mix 500 / 500 Gastric Drainage 600 / 600 200 / 200 Right Nare 600 / 600 Other: Meal npo Stool Size Small Stool Consistency loose Stool Color Brown Yellow Green # Voids 1 # Urine Diapers 2 Blood Glucose* 109 111 126 - General physical appearance no distress, other (asked questions directly; patient will shake or nod her head to answer questions, will not speak) - Eyes normal ocular movement - ENT normocephalic - Neck Neck exam: no lymphadectomy - Respiratory normal expansion, normal respiratory effort - Cardiovascular Cardiovascular exam: Present: RRR, tachycardia - Abdomen Abdomen: Present: soft, distended, tender (minimally tender at incision site; serosanguinous drainage) - Incision Incision: Present: clean and dry, intact - Neurologic CN 2-12 grossly intact - Labs 12/18/17 02:15 12/18/17 02:15 Diabetes panel 12/17/17 12/18/17 Range/Units 11:51 02:15 Sodium 132 L 130 L (136-145) mEq/L Potassium 5.9 H 4.7 (3.5-5.1) mEq/L Chloride 112 H 109 H (98-107) mEq/L Carbon Dioxide 14 L 17 L (23-29) mEq/L BUN 70 H 81 H (8-23) mg/dL Creatinine 1.28 H 1.18 (0.60-1.20) mg/dL Glucose 145 H 137 H (70-105) mg/dL Calcium 8.1 L 8.5 L (8.6-10.3) mg/dL Calcium panel 12/17/17 12/18/17 Range/Units 11:51 02:15 Calcium 8.1 L 8.5 L (8.6-10.3) mg/dL Pituitary panel 12/17/17 12/18/17 Range/Units 11:51 02:15 Sodium 132 L 130 L (136-145) mEq/L Potassium 5.9 H 4.7 (3.5-5.1) mEq/L Chloride 112 H 109 H (98-107) mEq/L Carbon Dioxide 14 L 17 L (23-29) mEq/L BUN 70 H 81 H (8-23) mg/dL Creatinine 1.28 H 1.18 (0.60-1.20) mg/dL Glucose 145 H 137 H (70-105) mg/dL Calcium 8.1 L 8.5 L (8.6-10.3) mg/dL Adrenal panel 12/17/17 12/18/17 Range/Units 11:51 02:15 Sodium 132 L 130 L (136-145) mEq/L Potassium 5.9 H 4.7 (3.5-5.1) mEq/L Chloride 112 H 109 H (98-107) mEq/L Carbon Dioxide 14 L 17 L (23-29) mEq/L BUN 70 H 81 H (8-23) mg/dL Creatinine 1.28 H 1.18 (0.60-1.20) mg/dL Glucose 145 H 137 H (70-105) mg/dL Calcium 8.1 L 8.5 L (8.6-10.3) mg/dL - Imaging CT scan - abdomen: report reviewed, image reviewed CT Scan - head: report reviewed, image reviewed (all imaging reviewed by me, discussed with radiology) - VTE Documentation of Mechanical Device: Intermittent pneumatic compression device Consult Discharge Plan - Plan Referrals: Dandy Painter DO [Resident] - Rafita Frazier MD [Non-Partnered Physician] -
[2017-12-18 10:12] LABS: Bilirubin,Urine Small (Negative); Blood,Urine Negative (Negative); Clarity,Urine Cloudy (Clear); Color,Urine Dark Yellow (Yellow); Glucose,Urine (UA) Normal (Normal); Ketones,Urine Negative (Negative); Leukocyte Esterase,Urine Negative (Negative); Nitrite,Urine Negative (Negative); Protein,Urine Negative (Neg-Trace); Specific Gravity,Urine 1.019 (1.010-1.025); Urobilinogen,Urine Normal (Normal)
[2017-12-18 10:15] LABS: Bacteria,Urine Moderate per hpf (None-Few); Hyaline Casts,Urine None Seen per lpf (None-Few); RBC,Urine 0-3 per hpf (0-3); Squamous Epithelial Cell,Urine Many per lpf (None-Few); WBC,Urine 0-3 per hpf (0-3)
[2017-12-18] MEDS ORDERED: Dexamethasone 4 MG/ML VIAL ONE (10:20)
[2017-12-18] MEDS ORDERED: *HR* FentaNYL (PF) 100 MCG/2 ML VIAL ONE (10:20)
[2017-12-18] MEDS ORDERED: *HR* Rocuronium Bromide 50 MG/5 ML VIAL ONE (10:20)
[2017-12-18] MEDS ORDERED: Ketorolac 30 MG/ML VIAL ONE (10:20)
[2017-12-18] MEDS ORDERED: *HR* Succinylcholine 200 MG/10 ML VIAL IVP ONE (10:20)
[2017-12-18] MEDS ORDERED: Lidocaine -MPF 2% 2 ML VIAL ONE ×2 (10:20→10:22)
[2017-12-18] MEDS ORDERED: Lidocaine -MPF 4% 5 ML AMPUL ONE (10:20)
[2017-12-18] MEDS ORDERED: Ondansetron 4 MG/2 ML VIAL ONE (10:20)
[2017-12-18] MEDS ORDERED: Neostigmine Methylsulfate 3 MG/3 ML SYRINGE ONE (10:20)
[2017-12-18] MEDS ORDERED: *HR* Propofol 200 MG/20 ML VIAL IVP ONE ×3 (10:20→12:19)
[2017-12-18] MEDS ORDERED: *HR* Midazolam HCl 2 MG/2 ML VIAL ONE (10:20)
[2017-12-18] MEDS ORDERED: Propofol 500 MG/50 ML INFUS..BTL ONE (10:22)
[2017-12-18 10:41] LABS: Amorphous Sediment,Urine Few (Few)
[2017-12-18 10:47] LABS: Albumin 1.8 g/dL (3.5-5.7); Albumin/Globulin Ratio 0.8 (1.1-2.2); Bilirubin,Direct 2.5 mg/dL (0.0-0.2); Bilirubin,Indirect 1.2 mg/dL (0.0-1.2); Bilirubin,Total 3.7 mg/dL (0.3-1.0); Globulin 2.2 g/dL (2.4-3.5); Phosphorous 3.9 mg/dL (2.7-4.5)
--- NOTE | 2017-12-18 10:54 | Anesthesia Evaluation PreOp ---
Date of Encounter: 12/18/17 Time of Encounter: 10:52 - Past History Planned Operation: Exploratory Laparotomy Cardiac History: HTN, Hyperlipidemia Pulmonary History: COPD PROJECT/PRODUCTION MANAGER IMAGING History: CVA (No residual weakness per Pt, walks independently, occasional R -sided numbness) Other Medical History: Hepatic (hepatitis B,C; cirrhosis), Diabetes Type II, GERD, Other (anxiety/depression) Anesthesia History: No Prior Anesthetic Complications, Past Anesthesia Alcohol Use: none Drug use: none Medications and Allergies Ibuprofen [Motrin] 800 mg PO Q8HR PRN #42 tablet 10/06/17 [Rx] Cholestyramine 4 gm PO TIDAC 30 Days #120 powd.pack 11/25/17 [Rx] Diphenoxylate/Atropine [Lomotil 2.5 mg/0.025 mg] 2 tab PO QID 12 Days #120 tablet 11/25/17 [Rx] Loperamide [Imodium] 2 mg PO Q4HR 12 Days #144 capsule 11/25/17 [Rx] Omeprazole [PriLOSEC] 20 mg PO DAILY #30 capsule. 11/25/17 [Rx] 3 Allergy/AdvReac Type Severity Reaction Status Date / Time Penicillins [PCN] Allergy Rash Verified 11/09/17 15:30 niacin AdvReac Flushing Verified 11/09/17 15:30 duracef Allergy See Uncoded 11/09/17 15:30 Comments - Meds/Allergy Pre-op Review Medications Reviewed: Yes Allergies Reviewed: Yes Beta Blockers on Current Med List: No Anesthesia Results - Labs 12/18/17 02:15 12/18/17 02:15 - Imaging EKG: report reviewed (12/05/2017 SINUS RHYTHM WITH OCCASIONAL SUPRAVENTRICULAR PREMATURE COMPLEXES ARM LEADS REVERSED) Anesthesia Exam Vital Signs/O2 Sat/Glucose, Most Recent Temp Pulse Resp BP Pulse Ox 97.6 F 110 20 122/58 92 12/18/17 07:03 12/18/17 08:44 12/18/17 08:44 12/18/17 07:03 12/18/17 08:44 Blood Glucose* 111 Height: 5'1''/1.55m Weight: 119 lbs/54.3 kg NPO (# of Hours): 8 - HEENT Mallampati: II Teeth: Edentulous Oral Opening: Greater than 3 - PROJECT/PRODUCTION MANAGER IMAGING LOC: Confused - Cardiac Rhythm: Regular Murmur: None - Pulmonary Breath Sounds: bilateral Clear Respiratory Effort: Symmetrical Anesthesia Assess/Plan ASA Score: 4 (Patient's daughter{POA} understands that patient is at increased risk for perioperative complications including myocardial infarct, arrhythmias, CVA, post op vent support/ICU stay, and . Patient's daughter{POA} wishes to proceed.) Modified Mouna Scale for Level of Consciousness: Cooperative, oriented, and tranquil Anesthetic Plan: General, MAC Monitoring Plan: Standard Monitors Recovery Plan: ICU
[2017-12-18] MEDS ORDERED: Naloxone 0.4 MG/ML INJ IVP PRN ×2 (11:27→13:09)
[2017-12-18] MEDS ORDERED: D10% in Water 500 ML IVC PRN ×2 (11:27→13:09)
[2017-12-18] MEDS ORDERED: Clinimix 5%-20% SOLUTION 2,000 ML with MVI, adult with vitamin K 10 ML, Trace Element... IVC SCH ×5 (11:27→17:00)
[2017-12-18] MEDS ORDERED: *HR* PHENYLEPHRINE 1,000 MCG/10 ML SYRINGE IVP ONE (11:32)
[2017-12-18] MEDS: Pantoprazole 40 MG VIAL IVP SCH (11:42)
[2017-12-18] MEDS: Cholestyramine 4 GM POWD.PACK PO SCH (11:43)
[2017-12-18] MEDS: Diphenoxylate/Atropine 1 TAB TABLET PO SCH (11:43)
[2017-12-18] MEDS: traMADol 50 MG TABLET PO SCH (11:43)
[2017-12-18] MEDS: Psyllium 1 PACKET POWD.PACK PO SCH (11:43)
[2017-12-18] MEDS: Loperamide 1 MG/5 ML UDC PO SCH (11:43)
[2017-12-18] MEDS ORDERED: EPHEDrine 50 MG/ML VIAL ONE (12:17)
--- NOTE | 2017-12-18 13:08 | Anesthesia Evaluation Post Op ---
Date of Encounter: 12/18/17 Time of Encounter: 13:03 - Vital Signs Vital Signs: Vital Signs/O2 Sat/Glucose, Most Recent Temp Pulse Resp BP Pulse Ox 97.7 F 96 14 112/71 96 12/18/17 12:35 12/18/17 12:55 12/18/17 12:55 12/18/17 12:55 12/18/17 12:55 Blood Glucose* 111 - Lungs Lungs: Clear Ascult./Percussion - Airway Airway: Non-obstructed - Mental Status Mental Status: Confused, Asleep without brisk response to light stimulation, Baseline Status - Pain Pain Scale used: Unable to assess - Hydration Hydration: NPO, Jane catheter - Discharge PostOp Status: Transfer Patient to floor
--- NOTE | 2017-12-18 14:18 | Operative Note ---
Date of procedure: 12/18/17 Pre-op diagnosis: fascial dehiscence Post-op diagnosis: other (partial fascial dehiscence) Procedure: closure of partial fascial dehiscence Implants: none Complications: none Anesthesia: MAC Surgeon: Rafita Frazier Was there an assistant family teacher present: Yes Hat And Cap Opener: Lexi Hicks Estimated blood loss (cc): 0 Specimen: none Condition: stable Disposition: ICU Procedure in Detail: patient was brought into the operating room suite. Placed in supine position. Underwent smooth induction of MAC anesthesia; Mechanical DVT prophylaxis was already placed; preoperative antibiotics were given. Patient was prepped and draped in the usual fashion. A timeout was held identifying correct patient, pathology, procedure, and physician. I suctioned out the drainage in the ileostomy takedown site; There was simply clot. I was able to visualize the fascial closure. It appeared intact; I applied pressure to the surrounding tissue ad was able to manipulate a small stream of ascites that appeared hemorrhagic/serosanguinous in nature. The stream came from between the interrupted sutures used to close the fascia from the original surgery three days prior. Upon closer inspection, the fascia was very thin and the sutures were beginning to compromise the integrity of what was left of her fascia. I reinforced these small openings between interrupted sutures with 2-0 nylon. Upon second application of pressure, there was no flow of peritoneal ascitic fluid. I then concluded my procedure. I applied a wound vac to the wound (a white sponge on the fascia, a black sponge on top of that). The patient tolerated the procedure well and was escorted back to ICU.
[2017-12-18] MEDS ORDERED: Clinimix E 5%-15% SOLUTION 2,000 ML with MVI, adult with vitamin K 10 ML, Magnesium S... IVC SCH (17:00)
[2017-12-18] MEDS ORDERED: *HR* FentaNYL (PF) 100 MCG/2 ML VIAL IVP ONE (20:15)
[2017-12-18 20:43] LABS: ABG Base Excess -10 mEq/L (-2 to 3); ABG HCO3 15 mEq/L (21-27); ABG Oxygen Saturation 94 % (95-98); ABG PCO2 27 mmHg (35-45); ABG PH 7.34 pH Units (7.32-7.45); ABG PO2 74 mmHg (85-104); ABG TCO2 15 mEq/L (20-26)
[2017-12-18] MEDS: *HR* FentaNYL (PF) 100 MCG/2 ML VIAL IVP PRN (23:29)
[2017-12-19] MEDS: Ondansetron 4 MG/2 ML VIAL IVP PRN ×2 (00:49→08:34)
[2017-12-19] MEDS: *HR* FentaNYL (PF) 100 MCG/2 ML VIAL IVP PRN ×6 (01:06→19:52)
[2017-12-19 03:01] LABS: Basophils % 0.1 %; Immature Granulocytes % 1.7 % (0-4); Nucleated Red Blood Cells 0.1 /100 WBC (0); Red Cell Distribution Width 17.1 % (11.5-14.5)
[2017-12-19 03:03] LABS: Hematocrit 24.2 % (35.3-44.9); Hemoglobin 7.9 g/dL (11.5-15.4); Lymphocytes # 1.1 K/mcL (0.6-4.6); Lymphocytes % 4.1 %; Mean Corpuscular HGB Conc 32.6 g/dL (31.6-35.5); Mean Corpuscular Hemoglobin 29.4 pg (28.0-33.3); Monocytes # 3.1 K/mcL (0.0-1.3); Monocytes % 11.6 %; Red Blood Count 2.69 M/mcL (3.82-4.97); Segmented Neutrophils % 82.5 %
[2017-12-19 03:09] LABS: INR 1.9
[2017-12-19 03:16] LABS: Albumin 1.7 g/dL (3.5-5.7); Albumin/Globulin Ratio 0.8 (1.1-2.2); Bilirubin,Total 4.8 mg/dL (0.3-1.0); Calcium 8.9 mg/dL (8.6-10.3); Globulin 2.2 g/dL (2.4-3.5); Magnesium 2.5 mg/dL (1.6-2.6); Phosphorous 3.9 mg/dL (2.7-4.5); Potassium 4.7 mEq/L (3.5-5.1); Total Protein 3.9 g/dL (6.4-8.9)
[2017-12-19 03:31] LABS: Neutrophils # 22.3 K/mcL (1.6-8.9); Platelet Count 39 K/mcL (140-400)
[2017-12-19 03:33] LABS: Anisocytosis 1+ (Not Present); Dohle Bodies Present (Not Present); Platelet Estimate Decreased (Normal)
[2017-12-19 03:34] LABS: Macrocytosis Present (Not Present); Microcytosis Present (Not Present); Polychromasia 1+ (Not Present)
--- NOTE | 2017-12-19 07:50 | Pulmonology Consult Note ---
<Chuck Ortiz M - Last Filed: 12/19/17 10:08> Date of Encounter: 12/19/17 Medications and Allergies Ibuprofen [Motrin] 800 mg PO Q8HR PRN #42 tablet 10/06/17 [Rx] Cholestyramine 4 gm PO TIDAC 30 Days #120 powd.pack 11/25/17 [Rx] Diphenoxylate/Atropine [Lomotil 2.5 mg/0.025 mg] 2 tab PO QID 12 Days #120 tablet 11/25/17 [Rx] Loperamide [Imodium] 2 mg PO Q4HR 12 Days #144 capsule 11/25/17 [Rx] Omeprazole [PriLOSEC] 20 mg PO DAILY #30 capsule. 11/25/17 [Rx] 3 Allergy/AdvReac Type Severity Reaction Status Date / Time Penicillins [PCN] Allergy Rash Verified 11/09/17 15:30 niacin AdvReac Flushing Verified 11/09/17 15:30 duracef Allergy See Uncoded 11/09/17 15:30 Comments All Systems: The remainder of the systems were reviewed and are negative Physical Examination Vital Signs: Vital Signs, Last 4 Hours Temp Pulse Resp BP Pulse Ox 12/19/17 09:00 107 18 113/65 100 12/19/17 08:38 97.3 F L 12/19/17 08:00 112 12 104/59 10 12/19/17 07:00 120 24 118/70 93 Results - Laboratory Findings CBC and BMP: 12/19/17 02:45 12/19/17 02:45 ABG ABG pH 7.34 pH Units (7.32-7.45) 12/18/17 20:38 ABG pCO2 27 mmHg (35-45) L 12/18/17 20:38 ABG pO2 74 mmHg (85-104) L 12/18/17 20:38 ABG O2 Saturation 94 % (95-98) L 12/18/17 20:38 PT/INR, D-dimer PT 21.0 Seconds (9.4-12.1) H 12/19/17 02:45 D-Dimer 1312 ng/mLFEU (0-500) H 12/05/17 12:43 Abnormal lab findings: Abnormal lab results WBC 27.0 K/mcL (4.3-11.1) H 12/19/17 02:45 RBC 2.69 M/mcL (3.82-4.97) L 12/19/17 02:45 Hgb 7.9 g/dL (11.5-15.4) L 12/19/17 02:45 Hct 24.2 % (35.3-44.9) L 12/19/17 02:45 RDW 17.1 % (11.5-14.5) H 12/19/17 02:45 Plt Count 39 K/mcL (140-400) L 12/19/17 02:45 Metamyelocytes % 2.0 % (0) H 12/18/17 02:15 Myelocytes % 6.0 % (0) H 12/18/17 02:15 Neutrophils # 22.3 K/mcL (1.6-8.9) H 12/19/17 02:45 Monocytes # 3.1 K/mcL (0.0-1.3) H 12/19/17 02:45 Nucleated RBCs/100 WBC 0.1 /100 WBC (0) H 12/19/17 02:45 Toxic Granulation Present (Not Present) A 12/18/17 02:15 Dohle Bodies Present (Not Present) A 12/19/17 02:45 Platelet Estimate Decreased (Normal) L 12/19/17 02:45 Large Platelets Present (Not Present) A 12/18/17 02:15 Immature Plt Fraction 9.3 % (1.1-6.1) H 12/16/17 05:59 Polychromasia 1+ (Not Present) A 12/19/17 02:45 Hypochromasia Present (Not Present) A 12/18/17 02:15 Anisocytosis 1+ (Not Present) A 12/19/17 02:45 Microcytosis Present (Not Present) A 12/19/17 02:45 Macrocytosis Present (Not Present) A 12/19/17 02:45 PT 21.0 Seconds (9.4-12.1) H 12/19/17 02:45 D-Dimer 1312 ng/mLFEU (0-500) H 12/05/17 12:43 ABG pCO2 27 mmHg (35-45) L 12/18/17 20:38 ABG pO2 74 mmHg (85-104) L 12/18/17 20:38 ABG HCO3 15 mEq/L (21-27) L 12/18/17 20:38 ABG Total CO2 15 mEq/L (20-26) L 12/18/17 20:38 ABG O2 Saturation 94 % (95-98) L 12/18/17 20:38 ABG Base Excess -10 mEq/L (-2 to 3) L 12/18/17 20:38 Sodium 131 mEq/L (136-145) L 12/19/17 02:45 Chloride 110 mEq/L (98-107) H 12/19/17 02:45 Carbon Dioxide 18 mEq/L (23-29) L 12/19/17 02:45 BUN 91 mg/dL (8-23) H 12/19/17 02:45 Est GFR ( Amer) 55 (> 60) L 12/19/17 02:45 Est GFR (Non-Af Amer) 46 (> 60) L 12/19/17 02:45 BUN/Creatinine Ratio 76 (6-26) H 12/19/17 02:45 Glucose 137 mg/dL (70-105) H 12/19/17 02:45 POC Glucose 131 mg/dL (70-99) H 12/19/17 08:05 Calculated Osmolality 302 (280-300) H 12/19/17 02:45 Total Bilirubin 4.8 mg/dL (0.3-1.0) H 12/19/17 02:45 Direct Bilirubin 2.5 mg/dL (0.0-0.2) H 12/18/17 10:10 Ammonia 71 mcmol/L (16-53) H 12/19/17 02:45 Serum Total Protein 3.9 g/dL (6.4-8.9) L 12/19/17 02:45 Prealbumin 7.4 mg/dL (17.0-34.0) L 12/08/17 04:00 Albumin 1.7 g/dL (3.5-5.7) L 12/19/17 02:45 Globulin 2.2 g/dL (2.4-3.5) L 12/19/17 02:45 Albumin/Globulin Ratio 0.8 (1.1-2.2) L 12/19/17 02:45 25-OH Vitamin D Total 13 ng/mL (30-80) L 12/03/17 03:30 Urine Clarity Cloudy (Clear) A 12/18/17 10:00 Urine Bilirubin Small (Negative) H 12/18/17 10:00 Ur Squamous Epith Cells Many per lpf (None-Few) H 12/18/17 10:00 Urine Bacteria Moderate per hpf (None-Few) H 12/18/17 10:00 - Clinical Findings Intake & Output: Intake & Output 12/18/17 12/19/17 12/19/17 23:59 07:59 15:59 Intake Total 0 / 0 250 / 250 0 / 0 Output Total 900 / 900 1250 / 1250 125 / 125 Balance -900 / -900 -1000 / -1000 -125 / -125 Consult Discharge Plan - Plan Referrals: Dandy Painter DO [Resident] - Rafita Frazier MD [Non-Partnered Physician] - - Attending Attestation I examined this patient and my medical decision-making was reviewed with the Resident Physician. I agree with the documented findings, disposition and treatment plan as described except to the extent set forth below. Patient seen and examined. Labs, radiology, chart personally reviewed. Agree with resident's history and physical, assessment, plan with following comments: GALVANIZER: Patient follows commands, but she is confused and suspect this multifactorial, Pulmonary: Acceptable oxygenation and ventilation Cardiovascular: stable GI: Nutrition per dietary and GI prophylaxis per routine. Start PPI and GI consult for the cirrhosis. Heme: DVT prophylaxis per routine ID: will start empiric antibiotic. Renal; urine out put and renal funtion reviewed Endorcine: blood glucose is monitored Lines: all lines checked and no evidence of infections Skin: skin care to prevent pressure ulcers per nursing routine care <Chris Lawrence - Last Filed: 12/19/17 14:56> Date of Encounter: 12/19/17 Time of Encounter: 07:50 Assessment and Plan (1) Abdominal pain Current Visit: Yes Status: Acute Patient recently here for GI bleed. She has been followed by surgery they have opened her up twice. She has of history of an ileostomy. She is being followed by surgery as well. Pulmonology was consult did because of patient's leukocytosis. This most likely secondary to stress reaction from surgery patient has not been on antibiotics we will start patient on ceftriaxone. This will cover patient's pneumonia she has on after looking at chest x-ray this does not seem to be pneumonia as she does have bilateral pleural effusions most likely pulmonary edema. Just to be sure we will treat the patient for pneumonia at this time until proven otherwise. Patient is on TPN per general surgery. Patient also has hyperammonemia GI is consulted we appreciate their recommendations for that. Patient was also started on Protonix 40 mg daily. Patient does have history of cirrhosis GI will comment on that as well. Patient does have history of hepatitis B and C. From a pulmonology standpoint we will continue to monitor the patient while here in the ICU if patient becomes more stable plan to transfer out of ICU. Qualifiers: Abdominal location: generalized Qualified Code(s): R10.84 - Generalized abdominal pain (2) History of hepatitis B Current Visit: Yes Status: Acute Patient does have history of hepatitis B no treatment needed at this time we will continue to monitor (3) History of hepatitis C Current Visit: Yes Status: Acute Patient does have history of hepatitis C no treatment needed now we will continue to monitor LFTs are normal GI is consulted appreciate their recommendations (4) Pneumonia Current Visit: Yes Status: Acute Chest x-ray does show pleural effusions possible pneumonia. We will start patient on ceftriaxone to treat this. Patient is not short of breath at this time. We will continue to monitor with daily CBCs and monitoring respiratory function. At this time patient is on oxygen mask. She prefers this over nasal cannula. There is no need for BiPAP or intubation with ventilator treatment at this time Qualifiers: Pneumonia type: due to unspecified organism Laterality: unspecified laterality Lung location: unspecified part of lung Qualified Code(s): J18.9 - Pneumonia, unspecified organism (5) Leukocytosis Current Visit: Yes Status: Acute Leukocytosis most likely secondary to stress reaction from recent surgery but in case this is pneumonia we will start patient on ceftriaxone. We will continue to monitor with daily CBCs. Qualifiers: Leukocytosis type: unspecified Qualified Code(s): D72.829 - Elevated white blood cell count, unspecified (6) DVT prophylaxis Current Visit: No Status: Acute EP SCDs History of Present Illness Consult date: 12/19/17 Requesting physician: Rafita Frazier Reason for consult: pneumonia Chief complaint: Dehydration History of present illness: Ms. Jessica is a 62-year-old female with history of cirrhosis bowel resection and COPD. Patient was admitted to the hospital by surgery approximately 18 days ago. She had history of sigmoid resection she since then had a partial resection. This was done by the general surgeon Dr. Shay. Patient was on the hospital floor when a noticed patient's wound was beginning to dehisce this most likely was secondary to patient's ascites due to her chronic cirrhosis that she has. Patient does have elevation in her white blood cell count that is one reason why were consult did give their wan possible pneumonia. Patient was originally admitted in the ICU for a GI bleed. She was in hypovolemic shock. Patient did receive a few units of blood and then surgery took over the case. Patient does have history of hepatitis B and C. Patient did have a sigmoidectomy with diverting loop ileostomy on 10/03/17 and a cholecystectomy done on 10/27/17. 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 big toe bunion,. egd/colonoscopy,. dental sx,. bowel rescetion. ileostomy - Social History Smoking Status: Former smoker Smokeless Tobacco Status: No Alcohol use: none Drug use: none - Family History Father Living Status: Hx Family Cardiac Disorders: Yes Hx Family Respiratory Disorders: Yes Hx Family Cancer: No Hx Family GI Disorders: No Hx Family Endocrine Disorder: No Hx Family Neuromuscular Disorders: No Hx Family Neurologic Disorders: No Hx Family HEENT Disorders: No Hx Family Autoimmune Disorders: Yes ROS unobtainable: due to mental status All Systems: The remainder of the systems were reviewed and are negative Physical Examination Vital Signs: Vital Signs, Last 4 Hours Pulse Resp BP Pulse Ox 12/19/17 05:00 109 16 104/55 94 12/19/17 04:00 117 24 130/83 93 General appearance: no acute distress, alert Eyes: nonicteric ENT: oropharynx moist Neck: supple Effort: normal Inspection: normal Auscultation: bilateral: diminished breath sounds, wheezes Cardiovascular: regular rate and rhythm Gastrointestinal: normoactive bowel sounds, soft, tender (Tender near patient's surgical site that is currently dressed there seems to be no leakage from the site there is no erythema around the site.), non-distended Integumentary: normal Extremities: no cyanosis, no edema, no clubbing Musculoskeletal: no deformities, ROM normal normal mental status, non-focal exam Results - Laboratory Findings CBC and BMP: 12/19/17 02:45 12/19/17 02:45 ABG ABG pH 7.34 pH Units (7.32-7.45) 12/18/17 20:38 ABG pCO2 27 mmHg (35-45) L 12/18/17 20:38 ABG pO2 74 mmHg (85-104) L 12/18/17 20:38 ABG O2 Saturation 94 % (95-98) L 12/18/17 20:38 PT/INR, D-dimer PT 21.0 Seconds (9.4-12.1) H 12/19/17 02:45 D-Dimer 1312 ng/mLFEU (0-500) H 12/05/17 12:43 Abnormal lab findings: Abnormal lab results WBC 27.0 K/mcL (4.3-11.1) H 12/19/17 02:45 RBC 2.69 M/mcL (3.82-4.97) L 12/19/17 02:45 Hgb 7.9 g/dL (11.5-15.4) L 12/19/17 02:45 Hct 24.2 % (35.3-44.9) L 12/19/17 02:45 RDW 17.1 % (11.5-14.5) H 12/19/17 02:45 Plt Count 39 K/mcL (140-400) L 12/19/17 02:45 Metamyelocytes % 2.0 % (0) H 12/18/17 02:15 Myelocytes % 6.0 % (0) H 12/18/17 02:15 Neutrophils # 22.3 K/mcL (1.6-8.9) H 12/19/17 02:45 Monocytes # 3.1 K/mcL (0.0-1.3) H 12/19/17 02:45 Nucleated RBCs/100 WBC 0.1 /100 WBC (0) H 12/19/17 02:45 Toxic Granulation Present (Not Present) A 12/18/17 02:15 Dohle Bodies Present (Not Present) A 12/19/17 02:45 Platelet Estimate Decreased (Normal) L 12/19/17 02:45 Large Platelets Present (Not Present) A 12/18/17 02:15 Immature Plt Fraction 9.3 % (1.1-6.1) H 12/16/17 05:59 Polychromasia 1+ (Not Present) A 12/19/17 02:45 Hypochromasia Present (Not Present) A 12/18/17 02:15 Anisocytosis 1+ (Not Present) A 12/19/17 02:45 Microcytosis Present (Not Present) A 12/19/17 02:45 Macrocytosis Present (Not Present) A 12/19/17 02:45 PT 21.0 Seconds (9.4-12.1) H 12/19/17 02:45 D-Dimer 1312 ng/mLFEU (0-500) H 12/05/17 12:43 ABG pCO2 27 mmHg (35-45) L 12/18/17 20:38 ABG pO2 74 mmHg (85-104) L 12/18/17 20:38 ABG HCO3 15 mEq/L (21-27) L 12/18/17 20:38 ABG Total CO2 15 mEq/L (20-26) L 12/18/17 20:38 ABG O2 Saturation 94 % (95-98) L 12/18/17 20:38 ABG Base Excess -10 mEq/L (-2 to 3) L 12/18/17 20:38 Sodium 131 mEq/L (136-145) L 12/19/17 02:45 Chloride 110 mEq/L (98-107) H 12/19/17 02:45 Carbon Dioxide 18 mEq/L (23-29) L 12/19/17 02:45 BUN 91 mg/dL (8-23) H 12/19/17 02:45 Est GFR ( Amer) 55 (> 60) L 12/19/17 02:45 Est GFR (Non-Af Amer) 46 (> 60) L 12/19/17 02:45 BUN/Creatinine Ratio 76 (6-26) H 12/19/17 02:45 Glucose 137 mg/dL (70-105) H 12/19/17 02:45 POC Glucose 115 mg/dL (70-99) H 12/19/17 03:29 Calculated Osmolality 302 (280-300) H 12/19/17 02:45 Total Bilirubin 4.8 mg/dL (0.3-1.0) H 12/19/17 02:45 Direct Bilirubin 2.5 mg/dL (0.0-0.2) H 12/18/17 10:10 Ammonia 71 mcmol/L (16-53) H 12/19/17 02:45 Serum Total Protein 3.9 g/dL (6.4-8.9) L 12/19/17 02:45 Prealbumin 7.4 mg/dL (17.0-34.0) L 12/08/17 04:00 Albumin 1.7 g/dL (3.5-5.7) L 12/19/17 02:45 Globulin 2.2 g/dL (2.4-3.5) L 12/19/17 02:45 Albumin/Globulin Ratio 0.8 (1.1-2.2) L 12/19/17 02:45 25-OH Vitamin D Total 13 ng/mL (30-80) L 12/03/17 03:30 Urine Clarity Cloudy (Clear) A 12/18/17 10:00 Urine Bilirubin Small (Negative) H 12/18/17 10:00 Ur Squamous Epith Cells Many per lpf (None-Few) H 12/18/17 10:00 Urine Bacteria Moderate per hpf (None-Few) H 12/18/17 10:00 - Diagnostic Findings Chest x-ray: report reviewed, image reviewed - Clinical Findings Intake & Output: Intake & Output 12/18/17 12/18/17 12/19/17 15:59 23:59 07:59 Intake Total 0 / 0 250 / 250 Output Total 350 / 350 900 / 900 1250 / 1250 Balance -350 / -350 -900 / -900 -1000 / -1000 Weight 63.5 kg
--- NOTE | 2017-12-19 07:59 | General Surgery Progress Note ---
<Nigel Manjarrez - Last Filed: 12/19/17 08:57> Date of Encounter: 12/19/17 Time of Encounter: 08:00 - Assessment and Plan (1) Abdominal pain Current Visit: Yes Status: Acute Pulmonlogy consulted to work up possible pulm cause of leukocytosis GI consulted to manage hyperammonemia Continue monitoring bowel function continue pain regimen - maintain balance between pain control and potential ileus NPO: swab mouth for comfort Continue TPN, IVF, electrolyte repletion Encourage ambulation and inspirative spirometry Qualifiers: Abdominal location: generalized Qualified Code(s): R10.84 - Generalized abdominal pain Subjective Patient reports: no new complaints Narrative: Patient was otunded. Objective Vital Signs - Last 8 Hours Temp Pulse Resp BP Pulse Ox 12/19/17 05:00 109 16 104/55 94 12/19/17 04:00 117 24 130/83 93 12/19/17 03:00 98 F 108 24 118/63 99 12/19/17 02:00 130 26 110/78 96 12/19/17 01:00 131 26 145/65 91 12/19/17 00:00 120 22 124/71 94 Intake and Output 12/18/17 12/18/17 12/19/17 15:59 23:59 07:59 Intake Total 0 / 0 250 / 250 Output Total 350 / 350 900 / 900 1250 / 1250 Balance -350 / -350 -900 / -900 -1000 / -1000 Intake: IV Fluids 250 / 250 Intralipid 20% 250 ML @ 21 mls/ 250 / 250 hr IVPB DAILY@1700 REPLACED BY [facility] Rx#: [id number] Oral 0 / 0 0 / 0 Output: Estimated Blood Loss 0 / 0 Catheter 150 / 150 350 / 350 200 / 200 Gastric Drainage 150 / 150 50 / 50 50 / 50 Right Nare 50 / 50 50 / 50 Wound Drainage 50 / 50 500 / 500 1000 / 1000 Right Abdomen 50 / 50 500 / 500 1000 / 1000 Other: Meal NPO BREAKFAST Weight 63.5 kg Blood Glucose* 77 128 115 - General physical appearance no distress - Respiratory normal expansion - Cardiovascular Cardiovascular exam: Present: RRR - Labs 12/19/17 02:45 12/19/17 02:45 Diabetes panel 12/18/17 12/19/17 Range/Units 10:10 02:45 Sodium 131 L (136-145) mEq/L Potassium 4.7 (3.5-5.1) mEq/L Chloride 110 H (98-107) mEq/L Carbon Dioxide 18 L (23-29) mEq/L BUN 91 H (8-23) mg/dL Creatinine 1.19 (0.60-1.20) mg/dL Glucose 137 H (70-105) mg/dL Calcium 8.9 (8.6-10.3) mg/dL AST 30 34 (13-39) Units/L ALT 22 19 (7-52) Units/L Alkaline Phosphatase 82 92 (34-104) Units/L Albumin 1.8 L 1.7 L (3.5-5.7) g/dL Calcium panel 12/18/17 12/19/17 Range/Units 10:10 02:45 Calcium 8.9 (8.6-10.3) mg/dL Phosphorus 3.9 3.9 (2.7-4.5) mg/dL Albumin 1.8 L 1.7 L (3.5-5.7) g/dL Pituitary panel 12/19/17 Range/Units 02:45 Sodium 131 L (136-145) mEq/L Potassium 4.7 (3.5-5.1) mEq/L Chloride 110 H (98-107) mEq/L Carbon Dioxide 18 L (23-29) mEq/L BUN 91 H (8-23) mg/dL Creatinine 1.19 (0.60-1.20) mg/dL Glucose 137 H (70-105) mg/dL Calcium 8.9 (8.6-10.3) mg/dL Adrenal panel 12/18/17 12/19/17 Range/Units 10:10 02:45 Sodium 131 L (136-145) mEq/L Potassium 4.7 (3.5-5.1) mEq/L Chloride 110 H (98-107) mEq/L Carbon Dioxide 18 L (23-29) mEq/L BUN 91 H (8-23) mg/dL Creatinine 1.19 (0.60-1.20) mg/dL Glucose 137 H (70-105) mg/dL Calcium 8.9 (8.6-10.3) mg/dL Total Bilirubin 3.7 H 4.8 H (0.3-1.0) mg/dL AST 30 34 (13-39) Units/L ALT 22 19 (7-52) Units/L Alkaline Phosphatase 82 92 (34-104) Units/L Albumin 1.8 L 1.7 L (3.5-5.7) g/dL - VTE Documentation of Mechanical Device: Intermittent pneumatic compression device Consult Discharge Plan - Plan Referrals: Dandy Painter DO [Resident] - Rafita Frazier MD [Non-Partnered Physician] - <Rafita Frazier - Last Filed: 12/19/17 13:39> Date of Encounter: 12/19/17 - Assessment and Plan (1) Dehydration Current Visit: Yes Status: Acute Objective Vital Signs - Last 8 Hours Temp Pulse Resp BP Pulse Ox 12/19/17 13:00 105 12 98/50 100 12/19/17 12:10 96.4 F L 12/19/17 12:00 107 14 110/59 100 12/19/17 11:07 120 12/19/17 11:00 107 14 89/57 93 12/19/17 10:00 108 20 108/74 94 12/19/17 09:00 107 18 113/65 100 12/19/17 08:38 97.3 F L 12/19/17 08:00 112 12 104/59 10 12/19/17 07:00 120 24 118/70 93 Intake and Output 12/18/17 12/19/17 12/19/17 23:59 07:59 15:59 Intake Total 0 / 0 250 / 250 0 / 0 Output Total 900 / 900 1250 / 1250 275 / 275 Balance -900 / -900 -1000 / -1000 -275 / -275 Intake: IV Fluids 250 / 250 Intralipid 20% 250 ML @ 21 mls/ 250 / 250 hr IVPB DAILY@1700 REPLACED BY [facility] Rx#: [id number] Oral 0 / 0 0 / 0 0 / 0 Output: Catheter 350 / 350 200 / 200 275 / 275 Gastric Drainage 50 / 50 50 / 50 Right Nare 50 / 50 50 / 50 Wound Drainage 500 / 500 1000 / 1000 Right Abdomen 500 / 500 1000 / 1000 Other: Blood Glucose* 128 115 102 - Labs 12/19/17 02:45 12/19/17 02:45 Diabetes panel 12/19/17 Range/Units 02:45 Sodium 131 L (136-145) mEq/L Potassium 4.7 (3.5-5.1) mEq/L Chloride 110 H (98-107) mEq/L Carbon Dioxide 18 L (23-29) mEq/L BUN 91 H (8-23) mg/dL Creatinine 1.19 (0.60-1.20) mg/dL Glucose 137 H (70-105) mg/dL Calcium 8.9 (8.6-10.3) mg/dL AST 34 (13-39) Units/L ALT 19 (7-52) Units/L Alkaline Phosphatase 92 (34-104) Units/L Albumin 1.7 L (3.5-5.7) g/dL Calcium panel 12/19/17 Range/Units 02:45 Calcium 8.9 (8.6-10.3) mg/dL Phosphorus 3.9 (2.7-4.5) mg/dL Albumin 1.7 L (3.5-5.7) g/dL Pituitary panel 12/19/17 Range/Units 02:45 Sodium 131 L (136-145) mEq/L Potassium 4.7 (3.5-5.1) mEq/L Chloride 110 H (98-107) mEq/L Carbon Dioxide 18 L (23-29) mEq/L BUN 91 H (8-23) mg/dL Creatinine 1.19 (0.60-1.20) mg/dL Glucose 137 H (70-105) mg/dL Calcium 8.9 (8.6-10.3) mg/dL Adrenal panel 12/19/17 Range/Units 02:45 Sodium 131 L (136-145) mEq/L Potassium 4.7 (3.5-5.1) mEq/L Chloride 110 H (98-107) mEq/L Carbon Dioxide 18 L (23-29) mEq/L BUN 91 H (8-23) mg/dL Creatinine 1.19 (0.60-1.20) mg/dL Glucose 137 H (70-105) mg/dL Calcium 8.9 (8.6-10.3) mg/dL Total Bilirubin 4.8 H (0.3-1.0) mg/dL AST 34 (13-39) Units/L ALT 19 (7-52) Units/L Alkaline Phosphatase 92 (34-104) Units/L Albumin 1.7 L (3.5-5.7) g/dL - Attending Attestation I have personally seen and examined the patient. I have reviewed pertinent labs , imaging, progress notes, including this one. I agree with the above assessment and plan and wish to include the following... 62F Child's class A/B, POD #4 s/p ileosotmy reversal now with worsening hepatic function (worsening ascites, coagulopathy, hypoalbuminemia, encephalopathy, elevated ammonia level); neuro: hepatic encephalopathy, pain - more challenging to provide pain control in light of liver function; appreciate ICU recs cardiac: tachycardic - likely related to pain pulm: atelectasis; recommned percussion vest if patient able to tolerate; per ICU GI: NPO, TPN, GI consult; appreciate recs : poss HRS; cont with jones catheter ID: leukocytosis; no obvious source of infection; per ICU heme: mechanical DVT prophylaxis; cares per ICU
[2017-12-19] MEDS ORDERED: *HR* LORazepam 2 MG/ML VIAL ONE (10:22)
[2017-12-19] MEDS: *HR* LORazepam 2 MG/ML VIAL IVP PRN ×2 (10:37→19:52)
--- NOTE | 2017-12-19 10:55 | Event Note ---
Date of Encounter: 12/19/17 Time of Encounter: 10:30 Wound vac placed to open abdominal wound- white foam placed and then black foam on top. Placed to 125mmHG continuous suction. Serousang. drainage noted- large amount. Change every M-W- per the surgery team. The patient was confused and combative during the dressing change. Her HR went up into the 160's but decreased back to the 120's while resting after the wound vac placement. No complications noted.
[2017-12-19] MEDS ORDERED: cefTRIAXone 1,000 MG in Water for inj. (sterile) 20 ML 10 ML IVP SCH (12:00)
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
[2017-12-19] MEDS ORDERED: Lactulose 200 GM/300 ML (for enema) RC ONE (16:34)
[2017-12-19] MEDS ORDERED: VITAMIN K IVC SCH (17:00)
[2017-12-19] MEDS ORDERED: CLINIMIX IVC SCH (17:00)
[2017-12-19] MEDS ORDERED: [UNRECOGNIZED DRUG - OTHER] IVC SCH (17:00)
[2017-12-19] MEDS ORDERED: MVI IVC SCH (17:00)
[2017-12-19] MEDS ORDERED: Lactulose 200 GM, Sodium Chloride IRRigation 700 ML RC ONE (18:43)
[2017-12-20] MEDS ORDERED: *HR* Dextrose 50 % in Water (Syg) 50 ML SYRINGE IVP PRN (01:28)
[2017-12-20] MEDS: *HR* FentaNYL (PF) 100 MCG/2 ML VIAL IVP PRN ×4 (01:38→10:55)
[2017-12-20] MEDS: *HR* LORazepam 2 MG/ML VIAL IVP PRN ×2 (02:47→05:50)
[2017-12-20 03:17] LABS: ABG Base Excess -8 mEq/L (-2 to 3); ABG HCO3 17 mEq/L (21-27); ABG Oxygen Saturation 90 % (95-98); ABG PCO2 30 mmHg (35-45); ABG PH 7.35 pH Units (7.32-7.45); ABG PO2 60 mmHg (85-104); ABG TCO2 18 mEq/L (20-26)
[2017-12-20 03:38] LABS: Red Cell Distribution Width 17.2 % (11.5-14.5); Segmented Neutrophils % 71.1 %
[2017-12-20 03:40] LABS: Basophils % 0.1 %; Hematocrit 18.3 % (35.3-44.9); Immature Granulocytes % 6.8 % (0-4); Lymphocytes # 1.6 K/mcL (0.6-4.6); Lymphocytes % 5.8 %; Mean Corpuscular HGB Conc 31.1 g/dL (31.6-35.5); Mean Corpuscular Hemoglobin 28.8 pg (28.0-33.3); Mean Corpuscular Volume 92.4 fL (83.0-100.0); Monocytes # 4.4 K/mcL (0.0-1.3); Monocytes % 16.2 %; Neutrophils # 19.4 K/mcL (1.6-8.9); Nucleated Red Blood Cells 0.6 /100 WBC (0); Red Blood Count 1.98 M/mcL (3.82-4.97)
[2017-12-20 03:53] LABS: Calcium 9.3 mg/dL (8.6-10.3); Magnesium 2.5 mg/dL (1.6-2.6); Phosphorous 3.6 mg/dL (2.7-4.5); Potassium 4.3 mEq/L (3.5-5.1)
[2017-12-20 04:09] LABS: Hemoglobin 5.7 g/dL (11.5-15.4); Platelet Count 26 K/mcL (140-400)
[2017-12-20] MEDS ORDERED: Furosemide 20 MG/2 ML VIAL IVP ONE ×2 (04:13→06:06)
[2017-12-20] MEDS ORDERED: 0.9 % Sodium Chloride 250 ML ONE (04:36)
[2017-12-20 05:12] LABS: Albumin 1.5 g/dL (3.5-5.7)
[2017-12-20] MEDS ORDERED: Albumin 25% 25gram/100mL 25 GM/100 ML IV.SOLN IVPB ONE (06:07)
[2017-12-20] MEDS: Albumin 25% 25gram/100mL 25 GM/100 ML IV.SOLN IVPB ONE ×2 (07:09→07:20)
--- NOTE | 2017-12-20 08:11 | Pulmonology Progress Note ---
<Chris Lawrence - Last Filed: 12/20/17 13:54> Date of Encounter: 12/20/17 Time of Encounter: 08:11 Assessment and Plan (1) Need for comfort care Current Visit: Yes Status: Acute Family spoke with the general surgeon as well as the pulmonology team together after explaining patient's options the family including the water who is POA decided to change patient to DNR comfort care. Patient is going to be going on hospice. The palliative team has been consult it and will be following the patient we will place all the orders and they will transfer the patient out of the ICU to more comfortable bed. At this time all invasive treatments were removed and diagnostics were canceled (2) Abdominal pain Current Visit: Yes Status: Acute Patient originally here for a GI bleed. Was seen by general surgery started patient on TPN as well as did multiple surgeries patient started on ceftriaxone. Patient is now DNR CC and all care is been withdrawn. Patient structurally ICU Qualifiers: Abdominal location: generalized Qualified Code(s): R10.84 - Generalized abdominal pain (3) History of hepatitis B Current Visit: Yes Status: Chronic History of hepatitis B no treatment needed at this time as patient is DNR CC (4) History of hepatitis C Current Visit: Yes Status: Chronic History of hepatitis C no treatment needed at this time. Patient changed to DNR CC (5) Pneumonia Current Visit: Yes Status: Acute Patient likely has pneumonia. Patient was on ceftriaxone. This is been withdrawn as patient is now DNR CC and comfort care has been started. Qualifiers: Pneumonia type: due to unspecified organism Laterality: unspecified laterality Lung location: unspecified part of lung Qualified Code(s): J18.9 - Pneumonia, unspecified organism (6) Leukocytosis Current Visit: Yes Status: Acute All care has been WITHDRAWN. Qualifiers: Leukocytosis type: unspecified Qualified Code(s): D72.829 - Elevated white blood cell count, unspecified (7) DVT prophylaxis Current Visit: No Status: Acute DNR CC no treatment needed Subjective Principal diagnosis: GI bleed Interval history: Patient seen and evaluated today., Chart, labs, imaging was reviewed. After speaking with family they noticed patient continues to deteriorate. They are talking about whether or not to withdraw care and consider DNR CC. They are like to speak with the surgeon as well as the pulmonology to together to create a goals of care. Objective PUL Vital signs: Last Vital Signs Temp 98.2 F 12/20/17 06:19 Pulse 118 12/20/17 08:00 Resp 22 12/20/17 08:00 BP 109/51 12/20/17 08:00 Pulse Ox 98 12/20/17 08:00 General appearance: no acute distress, lethargic Eyes: nonicteric ENT: oropharynx moist Neck: supple Effort: normal Auscultation: bilateral: rales Cardiovascular: regular rate and rhythm Gastrointestinal: normoactive bowel sounds, soft, tender (The surgical site), non-distended Integumentary: normal Extremities: no cyanosis, no edema, no clubbing Musculoskeletal: no deformities, ROM normal non-focal exam, pupils equal and round, motor strength normal and symmetric Results - Laboratory Findings CBC and BMP: 12/20/17 03:19 12/20/17 03:19 ABG ABG pH 7.35 pH Units (7.32-7.45) 12/20/17 03:13 ABG pCO2 30 mmHg (35-45) L 12/20/17 03:13 ABG pO2 60 mmHg (85-104) L 12/20/17 03:13 ABG O2 Saturation 90 % (95-98) L 12/20/17 03:13 PT/INR, D-dimer PT 21.0 Seconds (9.4-12.1) H 12/19/17 02:45 D-Dimer 1312 ng/mLFEU (0-500) H 12/05/17 12:43 Abnormal lab findings: Abnormal lab results WBC 27.3 K/mcL (4.3-11.1) H 12/20/17 03:19 RBC 1.98 M/mcL (3.82-4.97) L 12/20/17 03:19 Hgb 5.7 g/dL (11.5-15.4) L* D 12/20/17 03:19 Hct 18.3 % (35.3-44.9) L 12/20/17 03:19 MCHC 31.1 g/dL (31.6-35.5) L 12/20/17 03:19 RDW 17.2 % (11.5-14.5) H 12/20/17 03:19 Plt Count 26 K/mcL (140-400) L* 12/20/17 03:19 Immature Gran % 6.8 % (0-4) H 12/20/17 03:19 Metamyelocytes % 2.0 % (0) H 12/18/17 02:15 Myelocytes % 6.0 % (0) H 12/18/17 02:15 Neutrophils # 19.4 K/mcL (1.6-8.9) H 12/20/17 03:19 Monocytes # 4.4 K/mcL (0.0-1.3) H 12/20/17 03:19 Nucleated RBCs/100 WBC 0.6 /100 WBC (0) H 12/20/17 03:19 Toxic Granulation Present (Not Present) A 12/18/17 02:15 Dohle Bodies Present (Not Present) A 12/19/17 02:45 Platelet Estimate Decreased (Normal) L 12/19/17 02:45 Large Platelets Present (Not Present) A 12/18/17 02:15 Immature Plt Fraction 9.3 % (1.1-6.1) H 12/16/17 05:59 Polychromasia 1+ (Not Present) A 12/19/17 02:45 Hypochromasia Present (Not Present) A 12/18/17 02:15 Anisocytosis 1+ (Not Present) A 12/19/17 02:45 Microcytosis Present (Not Present) A 12/19/17 02:45 Macrocytosis Present (Not Present) A 12/19/17 02:45 PT 21.0 Seconds (9.4-12.1) H 12/19/17 02:45 D-Dimer 1312 ng/mLFEU (0-500) H 12/05/17 12:43 ABG pCO2 30 mmHg (35-45) L 12/20/17 03:13 ABG pO2 60 mmHg (85-104) L 12/20/17 03:13 ABG HCO3 17 mEq/L (21-27) L 12/20/17 03:13 ABG Total CO2 18 mEq/L (20-26) L 12/20/17 03:13 ABG O2 Saturation 90 % (95-98) L 12/20/17 03:13 ABG Base Excess -8 mEq/L (-2 to 3) L 12/20/17 03:13 Sodium 132 mEq/L (136-145) L 12/20/17 03:19 Chloride 110 mEq/L (98-107) H 12/20/17 03:19 Carbon Dioxide 18 mEq/L (23-29) L 12/20/17 03:19 BUN 104 mg/dL (8-23) H 12/20/17 03:19 Creatinine 1.25 mg/dL (0.60-1.20) H 12/20/17 03:19 Est GFR ( Amer) 52 (> 60) L 12/20/17 03:19 Est GFR (Non-Af Amer) 43 (> 60) L 12/20/17 03:19 BUN/Creatinine Ratio 83 (6-26) H 12/20/17 03:19 Glucose 169 mg/dL (70-105) H 12/20/17 03:19 POC Glucose 121 mg/dL (70-99) H 12/20/17 07:17 Calculated Osmolality 311 (280-300) H 12/20/17 03:19 Lactic Acid 2.6 mmol/L (0.5-2.2) H 12/20/17 03:19 Total Bilirubin 4.8 mg/dL (0.3-1.0) H 12/19/17 02:45 Direct Bilirubin 2.5 mg/dL (0.0-0.2) H 12/18/17 10:10 Ammonia 79 mcmol/L (16-53) H 12/20/17 03:19 Serum Total Protein 3.9 g/dL (6.4-8.9) L 12/19/17 02:45 Prealbumin 7.4 mg/dL (17.0-34.0) L 12/08/17 04:00 Albumin 1.5 g/dL (3.5-5.7) L 12/20/17 03:19 Globulin 2.2 g/dL (2.4-3.5) L 12/19/17 02:45 Albumin/Globulin Ratio 0.8 (1.1-2.2) L 12/19/17 02:45 Triglycerides 193 mg/dL (< 150) H 12/20/17 03:19 25-OH Vitamin D Total 13 ng/mL (30-80) L 12/03/17 03:30 Urine Clarity Cloudy (Clear) A 12/18/17 10:00 Urine Bilirubin Small (Negative) H 12/18/17 10:00 Ur Squamous Epith Cells Many per lpf (None-Few) H 12/18/17 10:00 Urine Bacteria Moderate per hpf (None-Few) H 12/18/17 10:00 - Clinical Findings Intake & Output: Intake & Output 12/19/17 12/20/17 12/20/17 23:59 07:59 15:59 Intake Total 0 / 0 750 / 750 Output Total 875 / 875 1400 / 1400 Balance -875 / -875 -650 / -650 Weight 61.5 kg - VTE Documentation of Mechanical Device: Intermittent pneumatic compression device Consult Discharge Plan - Plan Referrals: Dandy Painter DO [Resident] - Rafita Frazier MD [Non-Partnered Physician] - <Chuck Ortiz - Last Filed: 12/20/17 16:49> Date of Encounter: 12/20/17 Objective PUL Vital signs: Last Vital Signs Temp 98.2 F 12/20/17 06:19 Pulse 112 12/20/17 09:00 Resp 20 12/20/17 09:00 BP 103/57 12/20/17 09:00 Pulse Ox 97 12/20/17 09:00 Results - Laboratory Findings CBC and BMP: 12/20/17 03:19 12/20/17 03:19 ABG ABG pH 7.35 pH Units (7.32-7.45) 12/20/17 03:13 ABG pCO2 30 mmHg (35-45) L 12/20/17 03:13 ABG pO2 60 mmHg (85-104) L 12/20/17 03:13 ABG O2 Saturation 90 % (95-98) L 12/20/17 03:13 PT/INR, D-dimer PT 21.0 Seconds (9.4-12.1) H 12/19/17 02:45 D-Dimer 1312 ng/mLFEU (0-500) H 12/05/17 12:43 Abnormal lab findings: Abnormal lab results WBC 27.3 K/mcL (4.3-11.1) H 12/20/17 03:19 RBC 1.98 M/mcL (3.82-4.97) L 12/20/17 03:19 Hgb 5.7 g/dL (11.5-15.4) L* D 12/20/17 03:19 Hct 18.3 % (35.3-44.9) L 12/20/17 03:19 MCHC 31.1 g/dL (31.6-35.5) L 12/20/17 03:19 RDW 17.2 % (11.5-14.5) H 12/20/17 03:19 Plt Count 26 K/mcL (140-400) L* 12/20/17 03:19 Immature Gran % 6.8 % (0-4) H 12/20/17 03:19 Metamyelocytes % 2.0 % (0) H 12/18/17 02:15 Myelocytes % 6.0 % (0) H 12/18/17 02:15 Neutrophils # 19.4 K/mcL (1.6-8.9) H 12/20/17 03:19 Monocytes # 4.4 K/mcL (0.0-1.3) H 12/20/17 03:19 Nucleated RBCs/100 WBC 0.6 /100 WBC (0) H 12/20/17 03:19 Toxic Granulation Present (Not Present) A 12/18/17 02:15 Dohle Bodies Present (Not Present) A 12/19/17 02:45 Platelet Estimate Decreased (Normal) L 12/19/17 02:45 Large Platelets Present (Not Present) A 12/18/17 02:15 Immature Plt Fraction 9.3 % (1.1-6.1) H 12/16/17 05:59 Polychromasia 1+ (Not Present) A 12/19/17 02:45 Hypochromasia Present (Not Present) A 12/18/17 02:15 Anisocytosis 1+ (Not Present) A 12/19/17 02:45 Microcytosis Present (Not Present) A 12/19/17 02:45 Macrocytosis Present (Not Present) A 12/19/17 02:45 PT 21.0 Seconds (9.4-12.1) H 12/19/17 02:45 D-Dimer 1312 ng/mLFEU (0-500) H 12/05/17 12:43 ABG pCO2 30 mmHg (35-45) L 12/20/17 03:13 ABG pO2 60 mmHg (85-104) L 12/20/17 03:13 ABG HCO3 17 mEq/L (21-27) L 12/20/17 03:13 ABG Total CO2 18 mEq/L (20-26) L 12/20/17 03:13 ABG O2 Saturation 90 % (95-98) L 12/20/17 03:13 ABG Base Excess -8 mEq/L (-2 to 3) L 12/20/17 03:13 Sodium 132 mEq/L (136-145) L 12/20/17 03:19 Chloride 110 mEq/L (98-107) H 12/20/17 03:19 Carbon Dioxide 18 mEq/L (23-29) L 12/20/17 03:19 BUN 104 mg/dL (8-23) H 12/20/17 03:19 Creatinine 1.25 mg/dL (0.60-1.20) H 12/20/17 03:19 Est GFR ( Amer) 52 (> 60) L 12/20/17 03:19 Est GFR (Non-Af Amer) 43 (> 60) L 12/20/17 03:19 BUN/Creatinine Ratio 83 (6-26) H 12/20/17 03:19 Glucose 169 mg/dL (70-105) H 12/20/17 03:19 POC Glucose 121 mg/dL (70-99) H 12/20/17 07:17 Calculated Osmolality 311 (280-300) H 12/20/17 03:19 Lactic Acid 2.6 mmol/L (0.5-2.2) H 12/20/17 03:19 Total Bilirubin 4.8 mg/dL (0.3-1.0) H 12/19/17 02:45 Direct Bilirubin 2.5 mg/dL (0.0-0.2) H 12/18/17 10:10 Ammonia 79 mcmol/L (16-53) H 12/20/17 03:19 Serum Total Protein 3.9 g/dL (6.4-8.9) L 12/19/17 02:45 Prealbumin 7.4 mg/dL (17.0-34.0) L 12/08/17 04:00 Albumin 1.5 g/dL (3.5-5.7) L 12/20/17 03:19 Globulin 2.2 g/dL (2.4-3.5) L 12/19/17 02:45 Albumin/Globulin Ratio 0.8 (1.1-2.2) L 12/19/17 02:45 Triglycerides 193 mg/dL (< 150) H 12/20/17 03:19 25-OH Vitamin D Total 13 ng/mL (30-80) L 12/03/17 03:30 Urine Clarity Cloudy (Clear) A 12/18/17 10:00 Urine Bilirubin Small (Negative) H 12/18/17 10:00 Ur Squamous Epith Cells Many per lpf (None-Few) H 12/18/17 10:00 Urine Bacteria Moderate per hpf (None-Few) H 12/18/17 10:00 - Clinical Findings Intake & Output: Intake & Output 12/19/17 12/20/17 12/20/17 23:59 07:59 15:59 Intake Total 0 / 0 750 / 750 Output Total 875 / 875 1400 / 1400 Balance -875 / -875 -650 / -650 Weight 61.5 kg - Attending Attestation I examined this patient and my medical decision-making was reviewed with the Resident Physician. I agree with the documented findings, disposition and treatment plan as described except to the extent set forth below. Patient seen and examined. Labs, radiology, chart personally reviewed. Agree with resident's history and physical, assessment, plan with following comments: VAT CLEANER: Patient does not follows commands, suspect this is multifactorial and metabolic encephalopathy is mainly reason. Pulmonary: Overall patient's condition is deteriorating and she will need invasive mechanical ventilation that was discussed with the surgeon and also family at the bedside and they wanted to discuss with the surgeon first. They understand this is not a treatment for her underlying disease rather than a temporary measure and this was discussed with primary team. Cardiovascular: Patient has borderline blood pressure and I suspect he could deteriorate more. GI: Nutrition per dietary and GI prophylaxis per routine. Underlying liver disease is a primary problem for her adenopathy and also thrombocytopenia Heme: DVT prophylaxis per routine. Mechanical ID: Continue antibiotics and plan to de-escalation Renal; urine out put and renal funtion reviewed. Volume management is problematic Endorcine: blood glucose is monitored Lines: all lines checked and no evidence of infections Skin: skin care to prevent pressure ulcers per nursing routine care I spent 35 min of Critical Care time with this patient. It involved decision making of high complexity to assess, manipulate, and support vital organ system failure and/or to prevent further life threatening deterioration of the patient' s condition. The time involved in the performance of separately reportable procedures was not counted toward critical care time.
[2017-12-20] MEDS ORDERED: Pantoprazole 40 MG VIAL IVP SCH (09:00)
--- NOTE | 2017-12-20 10:06 | General Surgery Progress Note ---
<Nigel Manjarrez - Last Filed: 12/20/17 10:12> Date of Encounter: 12/20/17 Time of Encounter: 10:00 - Assessment and Plan (1) Abdominal pain Current Visit: Yes Status: Acute Family changed status to DNRCC. Further managment per palliative care. Until palliative care recommendations come in: Continue monitoring bowel function continue pain regimen - maintain balance between pain control and potential ileus NPO: swab mouth for comfort Continue TPN, IVF, electrolyte replete Qualifiers: Abdominal location: generalized Qualified Code(s): R10.84 - Generalized abdominal pain Subjective Patient reports: no new complaints Narrative: Patient is in no acute distress. Family has decided to change patients status to DNRCC. Objective Vital Signs - Last 8 Hours Temp Pulse Resp BP Pulse Ox 12/20/17 09:00 112 20 103/57 97 12/20/17 08:00 118 22 109/51 98 12/20/17 07:30 120 12/20/17 07:10 122 12/20/17 07:00 122 18 98/46 92 12/20/17 06:19 98.2 F 121 20 98/46 94 12/20/17 06:18 98.3 F 121 20 93/37 93 12/20/17 06:04 98.3 F 122 20 93/54 12/20/17 06:00 122 20 93/54 90 12/20/17 05:00 125 22 124/63 90 12/20/17 04:00 130 22 119/67 91 12/20/17 03:00 97.6 F 138 26 110/76 85 Intake and Output 12/19/17 12/20/17 12/20/17 23:59 07:59 15:59 Intake Total 0 / 0 750 / 750 Output Total 875 / 875 1400 / 1400 Balance -875 / -875 -650 / -650 Intake: IV Fluids 450 / 450 Flexbumin 25 gm In 100 ml @ 60 200 / 200 mls/hr IVPB ONCE ONE Rx#: [id number] Intralipid 20% 250 ML @ 21 mls/ 250 / 250 hr IVPB DAILY@1700 MARIANA Rx#: [id number] Oral 0 / 0 0 / 0 Blood Product 300 / 300 Platelet Pheresis Lp Irr 1st 300 / 300 Unit [id number] Output: Catheter 350 / 350 200 / 200 Gastric Drainage 250 / 250 200 / 200 Right Nare 250 / 250 200 / 200 Wound Drainage 275 / 275 1000 / 1000 Right Abdomen 275 / 275 1000 / 1000 Other: Weight 61.5 kg Blood Glucose* 67 96 - General physical appearance no distress - Respiratory normal respiratory effort - Cardiovascular Cardiovascular exam: Present: RRR - Abdomen Abdomen: Present: bowel sounds present, soft, non tender - Psychiatric other (unable to assess) - Labs 12/20/17 03:19 12/20/17 03:19 Diabetes panel 12/20/17 Range/Units 03:19 Sodium 132 L (136-145) mEq/L Potassium 4.3 (3.5-5.1) mEq/L Chloride 110 H (98-107) mEq/L Carbon Dioxide 18 L (23-29) mEq/L BUN 104 H (8-23) mg/dL Creatinine 1.25 H (0.60-1.20) mg/dL Glucose 169 H (70-105) mg/dL Calcium 9.3 (8.6-10.3) mg/dL Albumin 1.5 L (3.5-5.7) g/dL Triglycerides 193 H (< 150) mg/dL Calcium panel 12/20/17 Range/Units 03:19 Calcium 9.3 (8.6-10.3) mg/dL Phosphorus 3.6 (2.7-4.5) mg/dL Albumin 1.5 L (3.5-5.7) g/dL Pituitary panel 12/20/17 Range/Units 03:19 Sodium 132 L (136-145) mEq/L Potassium 4.3 (3.5-5.1) mEq/L Chloride 110 H (98-107) mEq/L Carbon Dioxide 18 L (23-29) mEq/L BUN 104 H (8-23) mg/dL Creatinine 1.25 H (0.60-1.20) mg/dL Glucose 169 H (70-105) mg/dL Calcium 9.3 (8.6-10.3) mg/dL Adrenal panel 12/20/17 Range/Units 03:19 Sodium 132 L (136-145) mEq/L Potassium 4.3 (3.5-5.1) mEq/L Chloride 110 H (98-107) mEq/L Carbon Dioxide 18 L (23-29) mEq/L BUN 104 H (8-23) mg/dL Creatinine 1.25 H (0.60-1.20) mg/dL Glucose 169 H (70-105) mg/dL Calcium 9.3 (8.6-10.3) mg/dL Albumin 1.5 L (3.5-5.7) g/dL - VTE Documentation of Mechanical Device: Intermittent pneumatic compression device Consult Discharge Plan - Plan Referrals: Dandy Painter DO [Resident] - Rafita Frazier MD [Non-Partnered Physician] - <Rafita Frazier - Last Filed: 12/20/17 11:34> Date of Encounter: 12/20/17 - Assessment and Plan (1) Dehydration Current Visit: Yes Status: Acute Objective Vital Signs - Last 8 Hours Temp Pulse Resp BP Pulse Ox 12/20/17 09:00 112 20 103/57 97 12/20/17 08:00 118 22 109/51 98 12/20/17 07:30 120 12/20/17 07:10 122 12/20/17 07:00 122 18 98/46 92 12/20/17 06:19 98.2 F 121 20 98/46 94 12/20/17 06:18 98.3 F 121 20 93/37 93 12/20/17 06:04 98.3 F 122 20 93/54 12/20/17 06:00 122 20 93/54 90 12/20/17 05:00 125 22 124/63 90 12/20/17 04:00 130 22 119/67 91 12/20/17 03:00 97.6 F 138 26 110/76 85 Intake and Output 12/19/17 12/20/17 12/20/17 23:59 07:59 15:59 Intake Total 0 / 0 750 / 750 Output Total 875 / 875 1400 / 1400 Balance -875 / -875 -650 / -650 Intake: IV Fluids 450 / 450 Flexbumin 25 gm In 100 ml @ 60 200 / 200 mls/hr IVPB ONCE ONE Rx#: [id number] Intralipid 20% 250 ML @ 21 mls/ 250 / 250 hr IVPB DAILY@1700 MARIANA Rx#: [id number] Oral 0 / 0 0 / 0 Blood Product 300 / 300 Platelet Pheresis Lp Irr 1st 300 / 300 Unit [id number] Output: Catheter 350 / 350 200 / 200 Gastric Drainage 250 / 250 200 / 200 Right Nare 250 / 250 200 / 200 Wound Drainage 275 / 275 1000 / 1000 Right Abdomen 275 / 275 1000 / 1000 Other: Weight 61.5 kg Blood Glucose* 67 96 - Labs 12/20/17 03:19 12/20/17 03:19 Diabetes panel 12/20/17 Range/Units 03:19 Sodium 132 L (136-145) mEq/L Potassium 4.3 (3.5-5.1) mEq/L Chloride 110 H (98-107) mEq/L Carbon Dioxide 18 L (23-29) mEq/L BUN 104 H (8-23) mg/dL Creatinine 1.25 H (0.60-1.20) mg/dL Glucose 169 H (70-105) mg/dL Calcium 9.3 (8.6-10.3) mg/dL Albumin 1.5 L (3.5-5.7) g/dL Triglycerides 193 H (< 150) mg/dL Calcium panel 12/20/17 Range/Units 03:19 Calcium 9.3 (8.6-10.3) mg/dL Phosphorus 3.6 (2.7-4.5) mg/dL Albumin 1.5 L (3.5-5.7) g/dL Pituitary panel 12/20/17 Range/Units 03:19 Sodium 132 L (136-145) mEq/L Potassium 4.3 (3.5-5.1) mEq/L Chloride 110 H (98-107) mEq/L Carbon Dioxide 18 L (23-29) mEq/L BUN 104 H (8-23) mg/dL Creatinine 1.25 H (0.60-1.20) mg/dL Glucose 169 H (70-105) mg/dL Calcium 9.3 (8.6-10.3) mg/dL Adrenal panel 12/20/17 Range/Units 03:19 Sodium 132 L (136-145) mEq/L Potassium 4.3 (3.5-5.1) mEq/L Chloride 110 H (98-107) mEq/L Carbon Dioxide 18 L (23-29) mEq/L BUN 104 H (8-23) mg/dL Creatinine 1.25 H (0.60-1.20) mg/dL Glucose 169 H (70-105) mg/dL Calcium 9.3 (8.6-10.3) mg/dL Albumin 1.5 L (3.5-5.7) g/dL - Attending Attestation Patient seen and examined. I have reviewed all imaging, labs, and pertinent notes, including this one. I agree with the above assessment and plan and wish to add the following... 62F h/o COPD, hep C, cirrhosis class A, CVA who is s/p open sigmoidectomy with diverting ileostomy 2/2 chronic diverticulitis, s/p robotic cholecystectomy who post operative course was primary complicated by high ileostomy output and dehydration. In addition she had several episodes of LGIB, which was attributed to her hepatic dysfunction, however, no source was every found on imaging nor radiologically (i reviewed the images with radiology and there was no definitive stomal varix to attribute to her bleeding). After confirmation, via imaging and endoscopy that her colo-rectal anastamosis was healed, I spent 8 days resuscitating the patient, repleting electrolytes and ensuring that she was as physiologically optimized as possible. Prior to surgery she at the border of Child's class B, one point above a Child's class A. Although the risk was known, due to the nature of the procedure and the duration of anesthesia and knowing that the patient was poorly compliant in taking her medications and keeping up with her ileostomy output and to consistently return to the hospital every week or two was no longer safe nor helpful for the patient (no longer safe due to the risks with dehydration and electrolyte abnormalities), the decision was made to proceed with the ileostomy takedown. The ileostomy takedown was uneventful. Post operatively, the patient was doing well in that she was ambulating, conversing, making urine and we were awaiting return of bowel function. Over the course of the following days her mental status declined and her abdomen became more distended. I held narcotics, even at the risk of the patient being relatively uncomfortable, because I did not want to worsen her mental status. Despite these efforts she continued to decline. on 7, POD#3, a rapid response was called. vitals were as follows: BP 128/77, P-118, R-20, T-98.2, SpO2-100%. Skin was deemed to pale, blood glucose of 101, and the patient was felt to be increasingly lethargic. Pertinent labs were as follows: WBC@ 25.6, plts: 45; INR: 1.9; sodium: 130; BUN; 81 (creatinine was improving), ammonia: 70, T bili: 3.7, albmumin: 1.8. A CT scan on 12/05 was obtained with the following pertinent findings: minimal ascites (as noted by Dr. Frazier) and expected changes after her original surgery. A CT scan the night of the rapid response, three days post op, demonstrated the following pertinetn findings: Large pelvic hematoma, Cirrhosis with splenomegaly and ascites suggests portal hypertension and body wall edema that was identified as well as anterior abdominal wall fluid collection which could represent ascites fluid leaking into the subcutaneous fat, seroma, abscess or liquified hematoma. Of note, the decision was made to NOT reverse her INR because her h/h was stable as was her blood pressure. I did not perceive that she was bleeding. The imaging findings, in combination with her labs, were attributed acute hepatic dysfunction. I was called because there was noted to be ascitic fluid pouring from her ileostomy takedown site. The decision was made to take her to the OR, no general anesthesia due to concern about wound dehiscence. In the operating room, her fascia was intact, but it was clear that it was very attenuous. There was ascitic fluid leaking between the interrupted sutures. This was reinforced with interrupted sutures and I quickly concluded the case because it was clear to me that her problems were all stemming from her liver dysfunction. The patient was sent to the ICU and she became progressively worse in terms of her mental status. I called GI and we began lactulose. ICU was consulted for continued management. Nephrology and Interventional radiology was called. My concern was that she was decompensating, she was now Child's class C, likely going into hepatorenal syndrome. I also discussed things with the family as her condition declined. I spoke with the daughter very candidly. I let her know that I was not sure of how effective the lactulose would be for her mother. I did discuss that radiology may be able to perform a TIPS procedure, but, with her coagulopathy and encephalopathy, it was uncertain as to how effective those measures would be. I also discussed with her about transferring to [facility]. This morning, her h/h dropped significantly, her platelets were low, her WBC remained elevated. Today when the topic of intubation came into the discussion, I let her know that if we did, my intention would be to get a CT scan to see if there is any pathology we can treat (whether bleeding, abscess/infection, etc), see what nephrology, GI, and radiology can offer, and reverse her coagulopathy. However, the family, remembering the patient's wishes elected to not intubate. After much discussion about other things to do from a medical and surgical standpoint (and whether we should do more of what we are doing) and about what would be effective, after reconsidering transferring to [facility] and the utility in such a decision, and also considering quality of life for the patient if she were intubated, or the outcomes if further measures were taken and what we would consider worthwhile and beneficial for the family and the patient, the decision was made to make the patient comfortable. I took the patient's daughter aside and we had a final discussion about her care and I let her know that even if we had maximized all measures or sent her to [facility], I cannot say for certain we wouldn't be in the same circumstance. The daughter was understanding and understood the risks. She was very appreciative and gave the final decision to make the patient comfortable. i called and consulted palliative care and cancelled all consultations.
[2017-12-20] MEDS ORDERED: Morphine Oral CONC 5 MG/0.25 ML ORAL.SYG PO PRN ×2 (11:07)
[2017-12-20] MEDS ORDERED: *HR* LORazepam Oral Conc 2 MG/ML SL PRN (11:09)
[2017-12-20] MEDS ORDERED: Ondansetron 4 MG/2 ML VIAL IVP PRN (11:47)
[2017-12-20] MEDS ORDERED: MORPHINE SUL Oral CONC 10 MG/0.5 ML ORAL.SYG SL PRN ×5 (11:47→15:35)
--- NOTE | 2017-12-20 11:49 | Palliative - Consult Note ---
Date of Encounter: 12/20/17 Time of Encounter: 10:30 - Assessment and Plan (1) Hepatitis C Current Visit: Yes Status: Chronic Assessment and plan: Gastroenterology consult appreciated. Qualifiers: Viral hepatitis chronicity: chronic Hepatic coma status: without hepatic coma Qualified Code(s): B18.2 - Chronic viral hepatitis C (2) Thrombocytopenia Current Visit: Yes Status: Chronic Assessment and plan: Plt 26, hgb 5.7, hct 18.3, and RBC 1.98. (3) Abdominal pain Current Visit: Yes Status: Acute Assessment and plan: Patient not making nonverbal signs of pain during assessment. Changed Fentanyl IVP to Roxanol SL PRN. Qualifiers: Abdominal location: generalized Qualified Code(s): R10.84 - Generalized abdominal pain (4) Cirrhosis Current Visit: Yes Status: Acute Assessment and plan: Patient's family has opted to withdraw care. Qualifiers: Hepatic cirrhosis type: unspecified hepatic cirrhosis Ascites presence: with ascites Qualified Code(s): K74.60 - Unspecified cirrhosis of liver; R18.8 - Other ascites (5) Goals of care, counseling/discussion Current Visit: Yes Status: Acute Assessment and plan: Spoke with patient's daughter Aida regarding goals of care. Family has opted to withdraw care and transition to Comfort care. Patient's family desires to discharge to [place] with [facility]. Will notify [facility] DAY. Discontinue labs, changed Fentanyl and Ativan IVP PRN to Roxanol and Ativan SL PRN. Informed Effie at [facility] of planned discharge to [place] with [facility] at [address] Lawrence and Pepito JIMENEZ of plan of care. Palliative-CN HPI - Data of Consult Patient: new to practice Consult date: 12/20/17 Requesting Physician: Rafita Frazier MD Primary Care Provider: Ghanshyam Taylor - Consult Narrative Palliative Care/Comfort Measures: Palliative care Reason for consult: Comfort care History of present illness: Ms. Jessica is a 62 year old female Arrived to [facility] on 11/30/17 due to rapidly filling ileostomy bag with abdominal pain. PMH: COPD, CVA, Hepatitis B, Hepatitis C, Hyperlipidemia, Hypertension. PSH: Sigmoidectomy with diverging loop ileostomy 10/03/17 and cholecystectomy 10/27/17. Initial EKG: sinus tachycardia with occasional supraventricular premature complexes, possible right ventricular conduction delay, and non-specific t-wave abnormality. Patient admitted for dehydration. Medically managed by surgery department. 12/05/17 patient experiencing hypotension CVL placed and moved to ICU, new onset significant amount of dark red blood from ostomy site leading to hypovolemia. New diagnosis GI Bleed, Hypovolemic shock, thrombocytopenia. NG tube placed. CT Abdomen and Pelvis with contrast: History of partial resection of the sigmoid colon with no inflammation or complication at the anastomosis site and Ileostomy appears stable with associated parastomal hernia containing several loops of nonobstructed small bowel. Upper GI endoscopy performed 12/06/17, noting two non- bleeding cratered gastric ulcers with pigmented material found at pylorus and mild portal hypertensive gastropathy found in stomach; no evidence of perforation. Flexible sigmoidoscopy performed; normal results. Patient stabilized and left ICU to med-surg floor. Ileostomy reversal performed . Abdominal and Pelvis CT without contrast showing: Large pelvic hematoma; Cirrhosis with splenomegaly and ascites suggests portal hypertension; Colonic wall thickening is nonspecific in the setting of ascites and liver disease; and Pneumoperitoneum in a postoperative patient, Body wall edema is identified as well as anterior abdominal wall fluid collection which could represent ascites fluid leaking into the subcutaneous fat, seroma, abscess or liquified hematoma. 12/18/17 Chest xray showing Diffuse interstitial opacities with bilateral left- [id number] pleural effusions suggesting interstitial pulmonary edema or atypical pneumonia. Rapid response called, patient had outpour of serosanguinous fluid from incision, increased ascites and worsening coagulopathy with new encephalopathy, low albumin, elevated ammonia, worsening hepatic function and returned to ICU; patient was returned to OR for further evaluation. Wound vac placed to abdominal wound to be changed M-W-F on 12/19/17. Gastroenterology consulted, recommend lactulose enemas, patient was unable to tolerate and new corby blood from ileostomy. Palliative care consult for comfort care. Prior to assessment, spoke with Dr. Frazier (Surgery) regarding goals of care; agreeable with patient's family's decision for comfort care. Patient resting with eyes closed upon arrival for assessment. Patients daughter and grandchild present at bedside. Patient did moves body some; however , no purposeful movements nor does she follow commands. Patient expresses no nonverbal signs of pain or dyspnea. Patients nurse Bill present for assessment. Confirmed code status with daughter, Aida, who reports her mother would not want continued aggressive treatment nor a ventilator; however, feels some guilt if giving up to soon. Reviewed reports from ICU and Surgery and patients daughter agreed to withdraw care and keep patient comfortable. 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 big toe bunion,. egd/colonoscopy,. dental sx,. bowel rescetion. ileostomy - Social History Smoking Status: Former smoker Smokeless Tobacco Status: No Alcohol use: none Drug use: none - Family History Father Living Status: Hx Family Cardiac Disorders: Yes Hx Family Respiratory Disorders: Yes Hx Family Cancer: No Hx Family GI Disorders: No Hx Family Endocrine Disorder: No Hx Family Neuromuscular Disorders: No Hx Family Neurologic Disorders: No Hx Family HEENT Disorders: No Hx Family Autoimmune Disorders: Yes Medications and Allergies Ibuprofen [Motrin] 800 mg PO Q8HR PRN #42 tablet 10/06/17 [Rx] Cholestyramine 4 gm PO TIDAC 30 Days #120 powd.pack 11/25/17 [Rx] Diphenoxylate/Atropine [Lomotil 2.5 mg/0.025 mg] 2 tab PO QID 12 Days #120 tablet 11/25/17 [Rx] Loperamide [Imodium] 2 mg PO Q4HR 12 Days #144 capsule 11/25/17 [Rx] Omeprazole [PriLOSEC] 20 mg PO DAILY #30 capsule. 11/25/17 [Rx] 3 Allergy/AdvReac Type Severity Reaction Status Date / Time Penicillins [PCN] Allergy Rash Verified 11/09/17 15:30 niacin AdvReac Flushing Verified 11/09/17 15:30 duracef Allergy See Uncoded 11/09/17 15:30 Comments ROS unobtainable: due to mental status Palliative Care-Exam - Constitutional Vitals: Temp Pulse Resp BP Pulse Ox 98.2 F 112 20 103/57 97 12/20/17 08:00 12/20/17 09:00 12/20/17 09:00 12/20/17 09:00 12/20/17 09:00 General appearance: Present: disheveled, no acute distress - Head Head Exam: Present: atraumatic, normal inspection - Expanded Head Exam Head exam expanded IM: Absent: raccoon eyes - Eye Eye exam: Present: normal appearance. Absent: periorbital swelling, periorbital tenderness - ENT ENT exam: Present: mucous membranes dry, normal external ear exam - Expanded ENT Exam Mouth Exam: Present: dry mucosa, normal external inspection. Absent: drooling - Neck Neck exam: Present: full ROM, normal inspection - Respiratory Respiratory exam: Present: accessory muscle use, wheezes. Absent: respiratory distress - Cardiovascular Cardiovascular exam: Present: RRR, +S1, +S2, tachycardia - Expanded Cardiovascular Exam Peripheral pulses: 1+: Posterior Tibialis (L), Posterior Tibialis (R), Dorsalis Pedis (L) PM, Dorsalis Pedis (R) PM, 2+: Radial (L), Radial (R) - GI/Abdominal Exam GI/Abdominal exam: Present: distended, firm, hyperactive bowel sounds. Absent: tenderness - Expanded GI/Abdominal Exam GI/Abdominal exam: Present: ascites - Rectal Rectal exam: Present: deferred - Catheter Type: Urethral (Jane) - Extremities Exam Extremities exam: Present: pedal edema (Generalized edema 1-2+) - Neurological Exam Neurological exam: Present: altered. Absent: oriented X3 - Expanded Neurological Exam Neurological exam expanded: Present: inattentive Patient oriented to: Absent: person, place, time Speech: Present: total aphasia Coma Scale Eye Opening: To Pain Coma Scale Motor Response: Withdraws to Pain Coma Scale Verbal Response: Confused Coma Scale Total: 10 - Psychiatric Psychiatric exam: Present: flat affect - Skin Skin exam: Present: dry Internal Medicine - CN: Reslt - Labs CBC & Chem 7: 12/20/17 03:19 12/20/17 03:19 Labs: Short CBC 12/20/17 Range/Units 03:19 WBC 27.3 H (4.3-11.1) K/mcL Hgb 5.7 L* D (11.5-15.4) g/dL Hct 18.3 L (35.3-44.9) % Plt Count 26 L* (140-400) K/mcL Neutrophils # 19.4 H (1.6-8.9) K/mcL BMP 07/10/18 03:19 Sodium 132 L Potassium 4.3 Chloride 110 H Carbon Dioxide 18 L BUN 104 H Creatinine 1.25 H Glucose 169 H Calcium 9.3 Liver Function 12/20/17 Range/Units 03:19 Albumin 1.5 L (3.5-5.7) g/dL - ABG Interpretation ABG results: ABG ABG pH 7.35 pH Units (7.32-7.45) 12/20/17 03:13 ABG pCO2 30 mmHg (35-45) L 12/20/17 03:13 ABG pO2 60 mmHg (85-104) L 12/20/17 03:13 ABG O2 Saturation 90 % (95-98) L 12/20/17 03:13 PT/INR, D-dimer PT 21.0 Seconds (9.4-12.1) H 12/19/17 02:45 D-Dimer 1312 ng/mLFEU (0-500) H 12/05/17 12:43 - Impressions Impressions Chest X-Ray 12/20/17 03:11 IMPRESSION: Worsening bilateral pneumonia versus pulmonary edema. D/ / Leandro Murphy MD / Leandro Murphy MD Interpreting Provider: Leandro Murphy MD Consult Discharge Plan - Plan Referrals: Dandy Painter DO [Resident] - Rafita Frazier MD [Non-Partnered Physician] - Palliative Quality Palliative Quality: Screen for Code Status: Yes, Screen for Goals of Care: Yes, Screen for Pain: Yes, If Pain Regimen Started, Initiate Bowel Regimen: NA, Screen for Nausea/Vomitting: NA Code Status: 12/20/17 09:54 CODE [Resuscitation Status: Active] [RES] Routine Comment: Resuscitation Status: DNR-Comfort Care
[2017-12-20] MEDS: *HR* LORazepam Oral Conc 2 MG/ML SL PRN ×2 (13:44→17:05)
[2017-12-20] MEDS: MORPHINE SUL Oral CONC 10 MG/0.5 ML ORAL.SYG SL PRN ×4 (16:15→21:15)
[2017-12-20 19:09] VITALS: BP 131/74
[2017-12-21] MEDS ORDERED: Pantoprazole 40 MG VIAL IVP SCH (09:00)
--- NOTE | 2017-12-29 13:10 | Death Note ---
Discharge Sum: Summary - Date and Time Date of admission: 12/01/17 07:16 Date of : 12/20/17 Time of : 01:19 - Summary Details: 62F h/o COPD, hep C, cirrhosis class A, CVA who is s/p open sigmoidectomy with diverting ileostomy 2/2 chronic diverticulitis, s/p robotic cholecystectomy who post operative course was primary complicated by high ileostomy output and dehydration. In addition she had several episodes of LGIB, which was attributed to her hepatic dysfunction, however, no source was every found on imaging nor radiologically (i reviewed the images with radiology and there was no definitive stomal varix to attribute to her bleeding). After confirmation, via imaging and endoscopy that her colo-rectal anastamosis was healed, I spent 8 days resuscitating the patient, repleting electrolytes and ensuring that she was as physiologically optimized as possible. Prior to surgery she at the border of Child's class B, one point above a Child's class A. Although the risk was known, due to the nature of the procedure and the duration of anesthesia and knowing that the patient was poorly compliant in taking her medications and keeping up with her ileostomy output and to consistently return to the hospital every week or two was no longer safe nor helpful for the patient (no longer safe due to the risks with dehydration and electrolyte abnormalities), the decision was made to proceed with the ileostomy takedown. 12/15/2017 - The ileostomy takedown was uneventful. Post operatively, the patient was doing well in that she was ambulating, conversing, making urine and we were awaiting return of bowel function. Over the course of the following days her mental status declined and her abdomen became more distended. I held narcotics, even at the risk of the patient being relatively uncomfortable, because I did not want to worsen her mental status. Despite these efforts she continued to decline. 12/18, POD#3, a rapid response was called. vitals were as follows: BP 128/77, P- 118, R-20, T-98.2, SpO2-100%. Skin was deemed to pale, blood glucose of 101, and the patient was felt to be increasingly lethargic. Pertinent labs were as follows: WBC@ 25.6, plts: 45; INR: 1.9; sodium: 130; BUN; 81 (creatinine was improving), ammonia: 70, T bili: 3.7, albmumin: 1.8. A CT scan on 12/05 was obtained with the following pertinent findings: minimal ascites (as noted by Dr. Frazier) and expected changes after her original surgery. A CT scan the night of the rapid response, three days post op, demonstrated the following pertinetn findings: Large pelvic hematoma, Cirrhosis with splenomegaly and ascites suggests portal hypertension and body wall edema that was identified as well as anterior abdominal wall fluid collection which could represent ascites fluid leaking into the subcutaneous fat, seroma, abscess or liquified hematoma. Of note, the decision was made to NOT reverse her INR because her h/h was stable as was her blood pressure. I did not perceive that she was bleeding. The imaging findings, in combination with her labs, were attributed acute hepatic dysfunction. I was called because there was noted to be ascitic fluid pouring from her ileostomy takedown site. The decision was made to take her to the OR, no general anesthesia due to concern about wound dehiscence. In the operating room, her fascia was intact, but it was clear that it was very attenuous. There was ascitic fluid leaking between the interrupted sutures. This was reinforced with interrupted sutures and I quickly concluded the case because it was clear to me that her problems were all stemming from her liver dysfunction. The patient was sent to the ICU and she became progressively worse in terms of her mental status. I called GI and we began lactulose. ICU was consulted for continued management. Nephrology and Interventional radiology was called. My concern was that she was decompensating, she was now Child's class C, likely going into hepatorenal syndrome. I also discussed things with the family as her condition declined. I spoke with the daughter very candidly. I let her know that I was not sure of how effective the lactulose would be for her mother. I did discuss that radiology may be able to perform a TIPS procedure, but, with her coagulopathy and encephalopathy, it was uncertain as to how effective those measures would be. I also discussed with her about transferring to [facility]. 12/20 Her h/h dropped significantly, her platelets were low, her WBC remained elevated. Today when the topic of intubation came into the discussion, I let her know that if we did, my intention would be to get a CT scan to see if there is any pathology we can treat (whether bleeding, abscess/infection, etc), see what nephrology, GI, and radiology can offer, and reverse her coagulopathy. However, the family, remembering the patient's wishes elected to not intubate. After much discussion about other things to do from a medical and surgical standpoint (and whether we should do more of what we are doing) and about what would be effective, after reconsidering transferring to [facility] and the utility in such a decision, and also considering quality of life for the patient if she were intubated, or the outcomes if further measures were taken and what we would consider worthwhile and beneficial for the family and the patient, the decision was made to make the patient comfortable. I took the patient's daughter aside and we had a final discussion about her care and I let her know that even if we had maximized all measures or sent her to [facility], I cannot say for certain we wouldn't be in the same circumstance. The daughter was understanding and understood the risks. She was very appreciative and gave the final decision to make the patient comfortable. The patient later succumb to her underlying disease - Additional Data Confirmation of as documented by pronouncing clinician: no pulse, no respirations Family: at bedside Attending/PCP notified?: Yes Attending physician: Rafita Frazier MD Was code activated?: No Discharge Sum: Diag - PCOD Probable Cause of : Acute respiratory failure Discharge Sum: Prov - Provider Primary care physician: Ghanshyam Taylor Admitting clinician: Rafita Frazier Attending physician on admission: Rafita Frazier Consults: 12/05/17 07:52 Consult to Wound Care [CONS] Routine Reason for Consult: ostomy care education Call Completed: No 12/05/17 13:12 Consult to Pulmonology [CONS] Stat Consulting Provider: [facility] [place] Reason for Consult: Hypotension and critical care management. Time Notified: 13:12 Call Completed: Yes 12/20/17 10:00 Consult to Palliative Care [CONS] Routine Comment: Consulting Provider: [facility] [place] Reason for Consult: Family decided on [facility] Time Notified: 10:00 Call Completed: Yes 12/19/2017; GI consult 12/20/2017: IR consult
--- NOTE | 2017-12-29 13:20 | Discharge Summary ---
Date of Encounter: 12/20/17 Time of Encounter: 10:00 - Discharge Diagnosis (1) Dehydration Priority: Primary Status: Acute Comments: see d/c summary (2) Liver decompensation Priority: Primary Status: Acute Comments: see d/c summary Qualifiers: Liver failure chronicity: acute Hepatic coma status: without hepatic coma Qualified Code(s): K72.00 - Acute and subacute hepatic failure without coma General Surgery Exam Initial Vital Signs Temp Pulse Resp BP 98.4 F 125 16 89/61 11/30/17 19:23 11/30/17 19:23 11/30/17 19:23 11/30/17 19:23 - General physical appearance severe distress, cachectic, jaundice - Eyes icteric - ENT normocephalic - Neck no lymphadectomy - Respiratory other (abnormal; equal chest rise and fall) - Cardiovascular Cardiovascular exam: Present: RRR - Abdomen Abdomen general surgery: Present: soft, distended - Incision Incision: Present: open - Integumentary Integumentary general surgery: Present: warm and dry - Neurologic Present: other (encephalopathic) - Hospital Course Hospital course: Ms. Jessica is a 62 year old female - Time Spent with Patient Total time spent providing and/or coordinating discharge services: - Discharge Medications Home Medications: Ibuprofen [Motrin] 800 mg PO Q8HR PRN #42 tablet 10/06/17 [Rx] Cholestyramine 4 gm PO TIDAC 30 Days #120 powd.pack 11/25/17 [Rx] Diphenoxylate/Atropine [Lomotil 2.5 mg/0.025 mg] 2 tab PO QID 12 Days #120 tablet 11/25/17 [Rx] Loperamide [Imodium] 2 mg PO Q4HR 12 Days #144 capsule 11/25/17 [Rx] Omeprazole [PriLOSEC] 20 mg PO DAILY #30 capsule.dr 11/25/17 [Rx] Allergies/Adverse Reactions: 3 Allergy/AdvReac Type Severity Reaction Status Date / Time Penicillins [PCN] Allergy Rash Verified 11/09/17 15:30 niacin AdvReac [place] Verified 11/09/17 15:30 duracef Allergy See Uncoded 11/09/17 15:30 Comments Date of admission: 12/01/17 07:16 Primary care physician: Ghanshyam Taylor Consults: 12/05/17 07:52 Consult to Wound Care [CONS] Routine Reason for Consult: ostomy care education Call Completed: No 12/05/17 13:12 Consult to Pulmonology [CONS] Stat Consulting Provider: [facility] [place] Reason for Consult: Hypotension and critical care management. Time Notified: 13:12 Call Completed: Yes 12/20/17 10:00 Consult to Palliative Care [CONS] Routine Comment: Consulting Provider: Palliative [facility] [place] Reason for Consult: Family decided on Comfort [facility] Time Notified: 10:00 Call Completed: Yes - Impressions ITS Impressions KUB X-Ray 12/05/17 14:35 IMPRESSION: NG tube tip in the gastric antrum with the proximal side-port in the gastric body. D/ / Gee Spence MD / Gee Spence MD Interpreting Provider: Gee Spence MD Abdomen/Pelvis CT 12/05/17 17:30 IMPRESSION: 1. History of partial resection of the sigmoid colon with no inflammation or complication at the anastomosis site. 2. Ileostomy appears stable with associated parastomal hernia containing several loops of nonobstructed small bowel. D/ / Geovany Renee MD / Geovany Renee MD Interpreting Provider: Geovany Renee MD Abdomen/Pelvis CT 12/18/17 02:28 IMPRESSION: 1. Large pelvic hematoma. 2. Cirrhosis with splenomegaly and ascites suggests portal hypertension. 3. Colonic wall thickening is nonspecific in the setting of ascites and liver disease. 4. Pneumoperitoneum in a postoperative patient. Body wall edema is identified as well as anterior abdominal wall fluid collection which could represent ascites fluid leaking into the subcutaneous fat, seroma, abscess or liquified hematoma. More superiorly the intermediate density collection likely represents a hematoma. D/ / Leandro Murphy MD / Leandro Murphy MD Interpreting Provider: Leandro Murphy MD Chest X-Ray 12/18/17 06:20 IMPRESSION: Diffuse interstitial opacities with bilateral [id number]-right pleural effusions suggesting interstitial pulmonary edema or atypical pneumonia. Right upper extremity PICC line with tip in the right atrium. D/ / Gab Nicholas MD / Gab Nicholas MD Interpreting Provider: Gab Nicholas MD Chest X-Ray 12/20/17 03:11 IMPRESSION: Worsening bilateral pneumonia versus pulmonary edema. D/ / Leandro Murphy MD / Leandro Murphy MD Interpreting Provider: Leandro Murphy MD - Patient Status Disposition: Condition: Fair - Discharge Instructions Follow Up With: Dandy Painter DO [Resident] - Rafita Frazier MD [Non-Partnered Physician] - - Attending Attestation 62F h/o COPD, hep C, cirrhosis class A, CVA who is s/p open sigmoidectomy with diverting ileostomy 2/2 chronic diverticulitis, s/p robotic cholecystectomy who post operative course was primary complicated by high ileostomy output and dehydration. In addition she had several episodes of LGIB, which was attributed to her hepatic dysfunction, however, no source was every found on imaging nor radiologically (i reviewed the images with radiology and there was no definitive stomal varix to attribute to her bleeding). After confirmation, via imaging and endoscopy that her colo-rectal anastamosis was healed, I spent 8 days resuscitating the patient, repleting electrolytes and ensuring that she was as physiologically optimized as possible. Prior to surgery she at the border of Child's class B, one point above a Child's class A. Although the risk was known, due to the nature of the procedure and the duration of anesthesia and knowing that the patient was poorly compliant in taking her medications and keeping up with her ileostomy output and to consistently return to the hospital every week or two was no longer safe nor helpful for the patient (no longer safe due to the risks with dehydration and electrolyte abnormalities), the decision was made to proceed with the ileostomy takedown. 12/15 - The ileostomy takedown was uneventful. Post operatively, the patient was doing well in that she was ambulating, conversing, making urine and we were awaiting return of bowel function. Over the course of the following days her mental status declined and her abdomen became more distended. I held narcotics, even at the risk of the patient being relatively uncomfortable, because I did not want to worsen her mental status. Despite these efforts she continued to decline. on 12/18, POD#3, a rapid response was called. vitals were as follows: BP 128/77, P-118, R-20, T-98.2, SpO2-100%. Skin was deemed to pale, blood glucose of 101, and the patient was felt to be increasingly lethargic. Pertinent labs were as follows: WBC@ 25.6, plts: 45; INR: 1.9; sodium: 130; BUN; 81 (creatinine was improving), ammonia: 70, T bili: 3.7, albmumin: 1.8. A CT scan on 12/05 was obtained with the following pertinent findings: minimal ascites (as noted by Dr. Frazier) and expected changes after her original surgery. A CT scan the night of the rapid response, three days post op, demonstrated the following pertinetn findings: Large pelvic hematoma, Cirrhosis with splenomegaly and ascites suggests portal hypertension and body wall edema that was identified as well as anterior abdominal wall fluid collection which could represent ascites fluid leaking into the subcutaneous fat, seroma, abscess or liquified hematoma. Of note, the decision was made to NOT reverse her INR because her h/h was stable as was her blood pressure. I did not perceive that she was bleeding. The imaging findings, in combination with her labs, were attributed acute hepatic dysfunction. I was called because there was noted to be ascitic fluid pouring from her ileostomy takedown site. The decision was made to take her to the OR, no general anesthesia due to concern about wound dehiscence. In the operating room, her fascia was intact, but it was clear that it was very attenuous. There was ascitic fluid leaking between the interrupted sutures. This was reinforced with interrupted sutures and I quickly concluded the case because it was clear to me that her problems were all stemming from her liver dysfunction. The patient was sent to the ICU and she became progressively worse in terms of her mental status. I called GI and we began lactulose. ICU was consulted for continued management. Nephrology and Interventional radiology was called. My concern was that she was decompensating, she was now Child's class C, likely going into hepatorenal syndrome. I also discussed things with the family as her condition declined. I spoke with the daughter very candidly. I let her know that I was not sure of how effective the lactulose would be for her mother. I did discuss that radiology may be able to perform a TIPS procedure, but, with her coagulopathy and encephalopathy, it was uncertain as to how effective those measures would be. I also discussed with her about transferring to [facility]. 12/20 Her h/h dropped significantly, her platelets were low, her WBC remained elevated. Today when the topic of intubation came into the discussion, I let her know that if we did, my intention would be to get a CT scan to see if there is any pathology we can treat (whether bleeding, abscess/infection, etc), see what nephrology, GI, and radiology can offer, and reverse her coagulopathy. However, the family, remembering the patient's wishes elected to not intubate. After much discussion about other things to do from a medical and surgical standpoint (and whether we should do more of what we are doing) and about what would be effective, after reconsidering transferring to [facility] and the utility in such a decision, and also considering quality of life for the patient if she were intubated, or the outcomes if further measures were taken and what we would consider worthwhile and beneficial for the family and the patient, the decision was made to make the patient comfortable. I took the patient's daughter aside and we had a final discussion about her care and I let her know that even if we had maximized all measures or sent her to [facility], I cannot say for certain we wouldn't be in the same circumstance. The daughter was understanding and understood the risks. She was very appreciative and gave the final decision to make the patient comfortable.
== END 2017-12-21 04:45 | disposition expired | DRG 230 ==
LOC: 3ANU 19:21 → EMEROO 19:21 → 3ANU 21:28 → ICNU 12-05 12:59 → 3ANU 12-07 12:15 → ICNU 12-18 13:23 → 3ANU 12-20 15:23
PROVIDERS: ADMIT Surgery; ATTEND Surgery